=== PATIENT | male | born 1955 | race Caucasian/White ===

== ENCOUNTER 2022-12-09 06:04 | Emergency (ER) | payer MEDICARE, SELFPAY ==
[2022-12-09 06:08] VITALS: BP 142/102; PULSE 77; RESP 20; TEMP 36.4; O2SAT 96; BMI 22.7
--- NOTE | 2022-12-09 06:14 | ED_ITS ---
HPI - General Adult General Stated complaint: DIFFICULTY SWALLOWING Time Seen by Provider: 12/09/22 06:14 Source: patient Mode of arrival: walk-in History of Present Illness HPI narrative: Patient presents to emergency department complaining of throat swelling. Patient states he woke up this morning feeling like his throat is swollen and he cannot swallow. He denies any drooling. He states he had an episode like this 3 days ago and it went away on its own. Patient is not certain if he has any tongue swelling. he takes lisinopril for hypertension. Last dose was yesterday in the morning. He denies any fever, chills, or cough. Patient is a smoker.He denies any throat pain, or burning. Denies any nausea, vomiting, chest pain, shortness of breath. Related Data Home Medications Medication Instructions Recorded Confirmed aspirin 81 mg tablet,delayed 81 mg PO QDAY 12/09/22 12/09/22 release clopidogrel 75 mg tablet 75 mg PO QDAY 12/09/22 12/09/22 isosorbide mononitrate 30 mg 30 mg PO QDAY 12/09/22 12/09/22 tablet,extended release 24 hr lisinopril 5 mg tablet 5 mg PO QDAY 12/09/22 12/09/22 metoprolol succinate 25 mg 25 mg PO QDAY 12/09/22 12/09/22 tablet,extended release 24 hr rosuvastatin 40 mg tablet 40 mg PO QDAY 12/09/22 12/09/22 tamsulosin 0.4 mg capsule 0.4 mg PO Q24H 12/09/22 12/09/22 varenicline 1 mg tablet 1 mg PO QDAY 12/09/22 12/09/22 Allergies Allergy/AdvReac Type Severity Reaction Status Date / Time No Known Drug Allergies Allergy Verified 12/09/22 06:08 Review of Systems ROS Status of ROS 10 or more systems reviewed and unremarkable except as noted in history and below PFS PFS Social History Smoking status: Current every day smoker Exam Narrative Exam Narrative: Nurses notes and vital signs reviewed and patient is not hypoxic. General: Nontoxic, Well-appearing and in no apparent distress. Skin: Warm, dry, no pallor noted. No Rash Head: Normocephalic, atraumatic. Neck: Supple, non-tender. Eye: Pupils are equal, round and EOMI. No scleral icterus. Ears, Nose, Mouth, and Throat: TM clear, Minimal edema to the uvula, minimal edema to the tongue. No significant airway compromise. no posterior oropharynx erythema or nasal mucosal hypertrophy, uvula is mid-line, Oral mucosa is moist Cardiovascular: Regular Rate and Rhythm without murmur, gallop or rub. Respiratory: No accessory muscle use or respiratory distress. Lungs are clear to auscultation, no wheezing, rales or rhonchi Chest Wall: no tenderness Back: No midline thoracic or lumbar vertebral tenderness. No CVA tenderness Musculoskeletal: normal ROM, no calf or popliteal tenderness, no lower extremity edema/swelling GI: Abdomen is soft, non-distended. Normal bowel sounds. No masses appreciated. No tenderness to palpation. No rebound, guarding, or rigidity noted. Neurological: A&O x4. No cranial nerve dysfunction observed. No truncal ataxia. Moves all extremities. Sensation intact. Psychiatric: Cooperative and interactive. Normal mood and affect. Constitutional Vital Signs, click to edit/add: Last Vital Signs Temp 97.5 F L 12/09/22 06:08 Pulse 77 12/09/22 06:08 Resp 20 12/09/22 06:08 BP 142/102 H 12/09/22 06:08 Pulse Ox 96 12/09/22 06:08 O2 Del Method Room Air 12/09/22 06:08 Course Vital Signs Vital signs: Vital Signs Temperature 97.5 F L 12/09/22 06:08 Pulse Rate 77 12/09/22 06:08 Respiratory Rate 20 12/09/22 06:08 Blood Pressure 142/102 H 12/09/22 06:08 Pulse Oximetry 96 12/09/22 06:08 Oxygen Delivery Method Room Air 12/09/22 06:08 Temperature 97.5 F L 12/09/22 06:08 Pulse Rate 77 12/09/22 06:08 Respiratory Rate 20 12/09/22 06:08 Blood Pressure 142/102 H 12/09/22 06:08 Pulse Oximetry 96 12/09/22 06:08 Oxygen Delivery Method Room Air 12/09/22 06:08 Medical Decision Making [facility] Narrative Medical decision making narrative: Patient's history and physical is consistent with angioedema. An IV was established the patient was given 50 mg of Benadryl IV and Solu-Medrol 125 mg IV. CBC and a BMP were ordered and a neck soft tissue CT scan was ordered. Patient will be reevaluated To monitor improvement. The patient is signed out to Dr. Pham at the end of my shift awaiting labs, CT scan, reevaluation, and disposition. Discharge Plan Discharge Chief Complaint: Dental/Oral Clinical Impression: Angio-edema Patient Disposition: Still a Patient Prescriptions / Home Meds: No Action varenicline 1 mg tablet 1 mg PO QDAY aspirin 81 mg tablet,delayed release (DR/EC) 81 mg PO QDAY clopidogrel 75 mg tablet 75 mg PO QDAY isosorbide mononitrate 30 mg tablet extended release 24 hr 30 mg PO QDAY lisinopril 5 mg tablet 5 mg PO QDAY metoprolol succinate 25 mg tablet extended release 24 hr 25 mg PO QDAY rosuvastatin 40 mg tablet 40 mg PO QDAY tamsulosin 0.4 mg capsule 0.4 mg PO Q24H Referrals: NELLY WALTERS [Primary Care Provider] - 1 week
--- NOTE | 2022-12-09 06:28 | CT_ITS ---
The [address] [address] Patient Name: RONNELL PERES MRN: [id number] date: 1955 Sex: M Assigned Patient Location: ER Current Patient Location: Accession/Order Number: [id number] Exam Date: 12/09/2022 07:15 Report Date: 12/09/2022 07:35 At the request of: WARNER TRIPP Procedure: CT soft tissue neck w con EXAM: CT scan of the neck using 99 mL of IV iodinated contrast. Dose reduction technique used: Automated exposure control and/or adjustment of the mA and/or kV according to patient size and/or use of iterative reconstruction technique. REASON FOR EXAM: throat swelling COMPARISON: None FINDINGS: No abscess, fluid collection or soft tissue emphysema in the neck. No inflammatory changes in the neck. No abnormal soft tissue masses. Patent vascular structures in the neck. Mildly prominent left cervical lymph node at the level of the angle of the mandible measures 1.7 x 1.3 x 0.8 cm. No other cervical lymphadenopathy. Centrilobular and paraseptal emphysema in the upper lungs bilaterally. Remainder unremarkable. CT/CT soft tissue neck w con IMPRESSION: 1. No acute abnormalities in the neck. 2. Mild enlargement left cervical lymph node may be reactive, consider follow-up ultrasound in 2-3 months. Electronically authenticated by: KAILYN FERRELL Date: 12/09/2022 07:35
[2022-12-09] MEDS: METHYLPREDNISOLONE SOD SUCC PF 125 MG/2 ML VIAL IVP (06:45)
[2022-12-09] MEDS: DIPHENHYDRAMINE HCL 50 MG/ML (1ML) VIAL IV (06:45)
[2022-12-09 06:47] LABS: Basophils Absolute Auto 0.1 10^3/uL (0.0-0.1); Basophils Percent Auto 0.5 % (0.2-2.0); Eosinophils Absolute Auto 0.4 10^3/uL (0.0-0.7); Hematocrit 40.9 % (42.0-54.0); Hemoglobin 14.4 g/dL (14.0-18.0); Immature Granulocytes Abs Auto 0.03 10^3/uL (0.00-0.03); Immature Granulocytes Pct Auto 0.3 % (0.0-0.5); Lymphocytes Absolute Auto 1.9 10^3/uL (1.2-3.8); Mean Corpuscular HGB Conc 35.2 g/dL (29.9-35.2); Mean Corpuscular Hemoglobin 28.9 pg (25.9-34.0); Mean Corpuscular Volume 82.1 fL (80.0-94.0); Mean Platelet Volume 9.4 fL (9.5-13.5); Monocytes Absolute Auto 0.7 10^3/uL (0.3-0.8); Monocytes Percent Auto 7.1 % (1.7-12.0); Neutrophils Absolute Auto 6.8 10^3/uL (1.4-6.5); Neutrophils Percent Auto 69.1 % (43.0-75.0); Platelet Count 272 10^3/uL (150-450); Red Blood Count 4.98 10^6/uL (4.70-6.10); Red Cell Distribution Width 12.6 % (11.0-15.0); White Blood Count 9.9 10^3/uL (4.0-11.0)
[2022-12-09 06:52] LABS: Anion Gap 15.4; BUN Creatinine Ratio 20.2; Calcium 9.3 mg/dL (8.5-10.1); Carbon Dioxide 24.6 mmol/L (21.0-32.0); Chloride 101 mmol/L (98-107); Estimated GFR (African America >60 (>=60); Estimated GFR (Non-African Ame >60 (>=60); Glucose 108 mg/dL (74-106); Sodium 137 mmol/L (136-145)
[2022-12-09] MEDS: FAMOTIDINE/PF 20 MG/2 ML VIAL IV (07:42)
[2022-12-09 07:49] VITALS: BP 164/82; O2SAT 98
== END 2022-12-09 08:19 | disposition home or self-care (01) ==
PROVIDERS: Emergency Provider Emergency Medicine; PCP Nurse Practitioner Family
DX: R05.9 Cough, unspecified (principal); R09.81 Nasal congestion; F17.210 Nicotine dependence, cigarettes, uncomplicated; Z79.899 Other long term (current) drug therapy; Z79.82 Long term (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
CPT/HCPCS: 36415; 70491; 80048; 85025; 96374; 96375; 99285; J2930; Q9967

== ENCOUNTER 2023-01-20 08:31 | Outpatient (OUT) | payer MEDICARE, SELFPAY ==
--- NOTE | 2023-01-20 | PCN_ITS ---
CARDIAC STRESS TEST Requesting Physician:? Mackenzie Arroyo M.D. Procedure Date:? 01/20/2023 PERFORMING PROVIDER:? Mackenzie Arroyo M.D. INDICATIONS:? Chest pain, shortness of breath. STRESS TEST PROTOCOL:? Lexiscan myocardial perfusion scan. Resting heart rate:? 59 beats per minute. Max heart rate:? 116 beats per minute. Resting blood pressure:? 152/102 Maximum blood pressure: 182/104 CONCLUSIONS: 1.? Resting EKG demonstrates normal sinus rhythm, normal EKG. 2.? No definitive EKG changes meeting the criteria for ischemia. 3.? Please refer to separately interpreted and reported myocardial perfusion scan report. [facility]
--- NOTE | 2023-01-20 07:45 | NM_ITS ---
Patient: RONNELL PERES Exam Date: 01/20/2023 : 1955 Gender:M Ordering : CAM FORREST Admission #: [id number] Family : NELLY WALTERS [facility] Order #: [id number] CLICK HERE TO VIEW EXAM RADIOLOGY REPORT PROCEDURE: NM ARUN PERF SPECT REST STR COMPARISON: None. INDICATIONS: CHEST PAIN TECHNIQUE: Exam Description: Stress/Rest two day protocol gated SPECT Rest Imagin.8 mCi Tc-99m Cardiolite IV on 01/20/2023 Stress Imaging 30.9 mCi Tc-99m Cardiolite IV on 01/20/2023 Exercise Protocol: 0.4 mg Lexiscan given IV Heart Rate (bpm): Rest: 69 Max: 116 PMHR: 76 Blood Pressure: Rest: 152/102 Max: 182/104 Symptoms: Rest and peak stress ECG findings were pending and the exercise portion of the study was pending per attending physician Dr. LLAMAS . For more details please see separate cardiac stress test report. FINDINGS: QUALITY OF STUDY: Good. PERFUSION DEFECT: None. LOCATION: N/A SIZE: N/A. SEVERITY: N/A. TYPE: N/A. WALL MOTION: Normal. LV SIZE: Normal. 79 mL. TID / TCD: None; 0.8 LVEF: Normal. Calculated EF 61%. SUMMARY: Myocardial perfusion imaging study is NORMAL. CONCLUSION: 1. No reversible ischemia 2. Pending exercise test Dictated by: Jm Tucker MD on 01/21/2023 at 14:21 Approved by: Jm Tucker MD on 01/21/2023 at 14:22
--- NOTE | 2023-01-20 07:57 | CA_ITS ---
Patient: RONNELL PERES Exam Date: 01/20/2023 : 1955 Gender:M Ordering : CAM FORREST Admission #: [id number] Family : Order #: [id number] CLICK HERE TO VIEW EXAM ECHOCARDIOGRAM REPORT PROCEDURE: CA ECHO DOPPLER COMPLETE INDICATIONS: Shortness of breath, Chest pain COMPARISON: None. DESCRIPTION: COMPLETE ECHOCARDIOGRAM Real-time transthoracic echocardiography with 2D, M-mode, spectral and color flow Doppler performed. QUALITY: Technical quality was good. LEFT VENTRICLE: Normal chamber size. Mild concentric left ventricular hypertrophy. LV EF: Global left ventricular systolic function is normal. Calculated left ventricular ejection fraction is 55%. DIASTOLIC: Normal diastolic function. ATRIAL SEPTUM: Inadequately seen. LEFT ATRIUM: Normal chamber size. RIGHT ATRIUM: Normal chamber size. RIGHT VENTRICLE: Normal chamber size. Normal right ventricular systolic function. TRICUSPID VALVE: Normal mobility and thickness. No stenosis with trivial regurgitation. No evidence of pulmonary hypertension. RVSP 26mmHg MITRAL VALVE: Normal mobility and thickness. No evidence of mitral valve stenosis. There is no mitral annular calcification. Trivial mitral regurgitation. AORTIC VALVE: Normal trileaflet appearance. Thickened aortic valve. Normal leaflet mobility. No evidence of aortic valve stenosis. No aortic regurgitation. AORTIC ROOT: Normal diameter and appearance. PULMONIC VALVE: Normal thickness and mobility. Trivial regurgitation. PERICARDIUM: No evidence of pericardial effusion. IVC: Collapses with inspirations. Normal size. CONCLUSION: Global left ventricular systolic function is normal; visually estimated ejection fraction is 55 to 60%. Mildly increased left ventricular wall thickness. Normal diastolic function. Right ventricle is normal in size and systolic function. No significant valvular abnormalities. Adult Echocardiography Procedure Report Left Ventricle LVEDD (3.7 - 5.6 cm): 3.89 cm LVESD (2.2 - 4.0 cm): 2.64 cm LVIVS thickness (0.6 - 1.2 cm): 1.25 cm LVPW thickness (0.5 - 1.0 cm): 0.98 cm e': 0.08 m/s E - e': 7.09 LVOT Max Gradient: 2.82 mm[Hg] LVOT Area (cm2): 0.84 m/s Peak Velocity (LVOT): 0.84 m/s Mean Velocity (LVOT): 0.60 m/s LVOT Diameter 1.95 cm Left Ventricular Ejection Fraction: 54.79 % Left Atrium LA Volume Index (2D A2C): 29.29 ml/m2 Left Atrium Systolic Dimension: 2.73 cm Mitral Valve MV E to A Ratio: 0.79 Mitral Valve A-Wave Peak Velocity: 0.72 m/s Mitral Valve E-Wave Peak Velocity: 0.57 m/s Right Ventricle RV Internal Diastolic Dimension: 3.22 cm Aorta AO Root Diam: 3.19 cm Ascending Ao Diam: 3.08 cm Aortic Valve AoV Area (Peak Richie): 2.15 cm2, 2.15 cm2 AoV Area (VTI): 1.81 cm2, 1.81 cm2 Peak Velocity(Antegrade Flow): 1.17 m/s Peak Gradient(Antegrade Flow): 5.49 mm[Hg] Mean Velocity(Antegrade Flow): 0.83 m/s Mean Gradient(Antegrade Flow): 3.11 mm[Hg] Velocity Time Integral: 27.76 cm Tricuspid Valve Peak Velocity (Regurgitant Flow): 2.26 m/s, 2.42 m/s Pulmonic Valve Mean Gradient: 3.40 mm[Hg], 2.93 mm[Hg] Mean Velocity: 0.83 m/s, 0.77 m/s Peak Velocity: 1.37 m/s Peak Gradient: 7.87 mm[Hg], 7.07 mm[Hg] Right Atrium Right Atrium Systolic Pressure: 31.60 ml, 31.60 ml Dictated by: Jenniffer Francisco M.D. on 01/22/2023 at 09:36 Approved by: Jenniffer Francisco M.D. on 01/22/2023 at 09:38
[2023-01-20] MEDS: REGADENOSON 0.4 MG/5 ML SYRINGE IV (09:57)
== END 2023-01-20 08:32 | disposition home or self-care (01) ==
LOC: NM 08:32
PROVIDERS: PCP Nurse Practitioner Family; Visit Provider Internal Medicine Cardiovascular Disease
DX: R07.9 Chest pain, unspecified (principal); R06.02 Shortness of breath
CPT/HCPCS: 78452; 93017; 93306; A9500; J2785

== ENCOUNTER 2023-01-25 19:11 | Emergency (ER) | payer MEDICARE, SELFPAY ==
[2023-01-25 19:15] VITALS: BP 133/86; PULSE 92; RESP 18; TEMP 36.8; O2SAT 96; BMI 22.6
--- NOTE | 2023-01-25 19:27 | ED.GENADUL1 ---
HPI - General Adult General Chief complaint: Epistaxis Stated complaint: ANXIETY Time Seen by Provider: 01/25/23 19:17 Source: patient Mode of arrival: walk-in History of Present Illness HPI narrative: patient has past history of anxiety. States he use to take Ativan. states increased stress including his job. Feeling anxious and not able to sit still or shut him mind down. No dyspnea or chest pain. Pacing. Wants something to help him relax so he can sleep Related Data Home Medications Medication Instructions Recorded Confirmed aspirin 81 mg tablet,delayed 81 mg PO QDAY 12/09/22 12/09/22 release clopidogrel 75 mg tablet 75 mg PO QDAY 12/09/22 12/09/22 isosorbide mononitrate 30 mg 30 mg PO QDAY 12/09/22 12/09/22 tablet,extended release 24 hr lisinopril 5 mg tablet 5 mg PO QDAY 12/09/22 12/09/22 metoprolol succinate 25 mg 25 mg PO QDAY 12/09/22 12/09/22 tablet,extended release 24 hr rosuvastatin 40 mg tablet 40 mg PO QDAY 12/09/22 12/09/22 tamsulosin 0.4 mg capsule 0.4 mg PO Q24H 12/09/22 12/09/22 varenicline 1 mg tablet 1 mg PO QDAY 12/09/22 12/09/22 Allergies Allergy/AdvReac Type Severity Reaction Status Date / Time lisinopril Allergy Unknown angioedema Unverified 01/20/23 08:03 Review of Systems ROS Status of ROS 10 or more systems reviewed and unremarkable except as noted in history and below PFSH PFSH Social History Smoking status: Current every day smoker Exam Constitutional Vital Signs, click to edit/add: Last Vital Signs Temp 98.2 F 01/25/23 19:15 Pulse 92 H 01/25/23 19:15 Resp 18 01/25/23 19:15 BP 133/86 01/25/23 19:15 Pulse Ox 96 01/25/23 19:15 O2 Del Method Room Air 01/25/23 19:15 Common normals: no apparent distress, average body habitus, oriented x3, no limitations, healthy appearing, alert and well nourished Eye Common normals: PERRL, EOMs intact bilaterally and conjunctivae normal Respiratory Common normals: normal respiratory effort, no retractions, no use of accessory muscles and clear to auscultation bilaterally Cardio Common normals: regular rate, regular rhythm, S1 normal heart sound and S2 normal heart sound GI Common normals: Normal to inspection, nondistended, normoactive bowel sounds present, soft to palpation and non-tender Extremity Common normals: normal to inspection and full ROM Neuro Common normals: oriented x3, CN's II-XII intact bilaterally, moves all extremities, no focal motor deficits and no sensory deficits noted Psych Appearance: grossly normal Course Vital Signs Vital signs: Vital Signs Temperature 98.2 F 01/25/23 19:15 Pulse Rate 92 H 01/25/23 19:15 Respiratory Rate 18 01/25/23 19:15 Blood Pressure 133/86 01/25/23 19:15 Pulse Oximetry 96 01/25/23 19:15 Oxygen Delivery Method Room Air 01/25/23 19:15 Temperature 98.2 F 01/25/23 19:15 Pulse Rate 92 H 01/25/23 19:15 Respiratory Rate 18 01/25/23 19:15 Blood Pressure 133/86 01/25/23 19:15 Pulse Oximetry 96 01/25/23 19:15 Oxygen Delivery Method Room Air 01/25/23 19:15 Medical Decision Making MDM Narrative Medical decision making narrative: patient has chronic history of anxiety. Was treated in the past with Ativan. Requesting something to help him calm down. No sucidal. Patient drove him self here. Was seen earlier today for nose bleed. No longer bleeding but stressing about it also. Will discharge home with a couple of Ativan to use tonight and recommend he follow up with his doctor tomorrow Discharge Plan Discharge Chief Complaint: Epistaxis Clinical Impression: Anxiety Patient Disposition: Home, Self-Care Prescriptions / Home Meds: No Action varenicline 1 mg tablet 1 mg PO QDAY aspirin 81 mg tablet,delayed release (DR/EC) 81 mg PO QDAY clopidogrel 75 mg tablet 75 mg PO QDAY isosorbide mononitrate 30 mg tablet extended release 24 hr 30 mg PO QDAY lisinopril 5 mg tablet 5 mg PO QDAY metoprolol succinate 25 mg tablet extended release 24 hr 25 mg PO QDAY rosuvastatin 40 mg tablet 40 mg PO QDAY tamsulosin 0.4 mg capsule 0.4 mg PO Q24H Instructions: Anxiety (ED) Additional Instructions: follow up with your doctor tomorrow Stand Alone Forms: Portal Instructions Referrals: NELLY WALTERS [Primary Care Provider] - 1 week
[2023-01-25] MEDS: LORAZEPAM 1 MG TABLET 2 MG PO (20:04)
== END 2023-01-25 20:13 | disposition home or self-care (01) ==
PROVIDERS: Emergency Provider Internal Medicine; PCP Nurse Practitioner Family
DX: F41.9 Anxiety disorder, unspecified (principal); Z79.899 Other long term (current) drug therapy; Z79.82 Long term (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; F17.210 Nicotine dependence, cigarettes, uncomplicated
CPT/HCPCS: 99283

== ENCOUNTER 2023-06-29 11:49 | Outpatient (OUT) | payer MEDICARE, SELFPAY ==
[2023-06-29 12:11] LABS: Estimated GFR (African America >60 (>=60); Estimated GFR (Non-African Ame >60 (>=60)
--- NOTE | 2023-06-29 12:27 | XR_ITS ---
The [address] [address] Patient Name: RONNELL PERES MRN: [id number] date: 1955 Sex: M Assigned Patient Location: LAB Current Patient Location: LAB Accession/Order Number: [id number] Exam Date: 06/29/2023 12:31 Report Date: 06/29/2023 12:53 At the request of: PORTILLO LUDWIG Procedure: XR foreign body eye EXAMINATION: XR foreign body eye HISTORY: for mri COMPARISON: No relevant comparison available. FINDINGS: ORBITS: Negative for a metallic foreign body. OTHER: Negative. XR/XR foreign body eye IMPRESSION: 1. No metallic foreign body within the orbits. Electronically authenticated by: LONNIE BUENO Date: 06/29/2023 12:53
== END 2023-06-29 11:50 | disposition home or self-care (01) ==
LOC: LAB 11:50
PROVIDERS: PCP Nurse Practitioner Family; Visit Provider Otolaryngology
DX: H90.3 Sensorineural hearing loss, bilateral (principal); H93.12 Tinnitus, left ear; H92.02 Otalgia, left ear
CPT/HCPCS: 36415; 70030; 82565

== ENCOUNTER 2023-08-19 10:37 | Outpatient (OUT) | payer MEDICARE, SELFPAY ==
--- NOTE | 2023-08-19 11:50 | XR_ITS ---
The [address] [address] Patient Name: RONNELL PERES MRN: [id number] date: 1955 Sex: M Assigned Patient Location: [facility] Current Patient Location: [facility] Accession/Order Number: [id number] Exam Date: 08/19/2023 11:45 Report Date: 08/19/2023 15:41 At the request of: SAUL KELSEY Procedure: XR chest 2V EXAMINATION: XR chest 2V HISTORY: Preop exam COMPARISON: 09/28/2022, 11/23/2014 TECHNIQUE: PA and lateral FINDINGS: LUNGS: Scattered right upper lobe nodules between the right third and fourth posterior ribs the largest measuring 7 mm. The left lung is clear VASCULATURE: No increased pulmonary vasculature. PLEURA: No pneumothorax, effusion, or pleural thickening. CARDIAC: No cardiomegaly or cardiac silhouette abnormality. MEDIASTINUM: No visible mass or adenopathy. BONES: No fracture or visible bone lesion. OTHER: Negative. XR/XR chest 2V IMPRESSION: 2 focal right upper lobe nodules. One of these nodules was calcified on the 2015 CT exam the other nodule is not definitively seen on prior CT. CT scan is recommended for further evaluation Electronically authenticated by: DUSTIN GONZALEZ Date: 08/19/2023 15:41
[2023-08-19 12:03] LABS: Basophils Percent Auto 0.5 % (0.2-2.0); Eosinophils Absolute Auto 0.1 10^3/uL (0.0-0.7); Eosinophils Percent Auto 1.2 % (0.9-7.0); Hematocrit 41.9 % (42.0-54.0); Hemoglobin 14.7 g/dL (14.0-18.0); Immature Granulocytes Abs Auto 0.03 10^3/uL (0.00-0.03); Immature Granulocytes Pct Auto 0.4 % (0.0-0.5); Lymphocytes Absolute Auto 1.8 10^3/uL (1.2-3.8); Lymphocytes Percent Auto 23.7 % (20.5-60.0); Mean Corpuscular HGB Conc 35.1 g/dL (29.9-35.2); Mean Corpuscular Hemoglobin 29.2 pg (25.9-34.0); Mean Corpuscular Volume 83.3 fL (80.0-94.0); Mean Platelet Volume 9.7 fL (9.5-13.5); Monocytes Absolute Auto 0.5 10^3/uL (0.3-0.8); Neutrophils Absolute Auto 5.2 10^3/uL (1.4-6.5); Neutrophils Percent Auto 68.2 % (43.0-75.0); Platelet Count 276 10^3/uL (150-450); Red Blood Count 5.03 10^6/uL (4.70-6.10); Red Cell Distribution Width 12.4 % (11.0-15.0); White Blood Count 7.6 10^3/uL (4.0-11.0)
--- NOTE | 2023-08-19 12:05 | PM.PRESUREVA ---
History of Present Illness History of Present Illness Chief complaint: left ing hernia Narrative: Patient presents for preadmission testing. The patient reports a long history of a left inguinal hernia which has worsened over the past year or so. The patient states the hernia is reducible, but the pain has become more consistent. He denies nausea, vomiting, or bowel changes. He states he does tend to be constipated. The patient has a history of coronary artery disease, myoocardial infarction, hypertension, and chronic obstructive pulmonary disease. The patient had a single cardiac stent placed in approximately 2019. He is taking aspirin and Plavix. The patient continues to smoke a pack of cigarettes a day as well as drink alcohol daily. The patient has been cleared for surgery by cardiology. Review of Systems ROS Narrative REVIEW OF SYSTEMS: Negative except as stated in HPI, ten or more systems reviewed. Constitutional: No fever , chills, weakness ENT: No sore throat or epistaxis Cardiovascular: No edema, chest pain, or palpitations Respiratory: Chronic cough, dyspnea on exertion Musculoskeletal: No joint pain or swelling Genitourinary: No dysuria or hematuria Neurological: No numbness, tingling, weakness, or headache Psychiatric: No mood changes [facility] Medical History (Updated 08/19/23 @ 11:31 by Imelda Bean NP) Neck pain ?M54.2 - Cervicalgia (ICD-10) Hydronephrosis ?N13.30 - Unspecified hydronephrosis (ICD-10) Tinnitus ?H93.19 - Tinnitus, unspecified ear (ICD-10) Hearing loss ?H91.90 - Unspecified hearing loss, unspecified ear (ICD-10) Fall (07/2023) ?W19.XXXA - Unspecified fall, initial encounter (ICD-10) Kidney stones ?N20.0 - Calculus of kidney (ICD-10) Constipation ?K59.00 - Constipation, unspecified (ICD-10) Inguinal hernia ?K40.90 - Unilateral inguinal hernia, without obstruction or gangrene, not specified as recurrent (ICD-10) GERD (gastroesophageal reflux disease) ?K21.9 - Gastro-esophageal reflux disease without esophagitis (ICD-10) Coronary artery disease ?I25.10 - Atherosclerotic heart disease of [place] coronary artery without angina pectoris (ICD-10) Panic attacks ?F41.0 - Panic disorder [episodic paroxysmal anxiety] (ICD-10) S/P extracorporeal shock wave therapy ?Z98.890 - Other specified postprocedural states (ICD-10) Myocardial infarct ?I21.9 - Acute myocardial infarction, unspecified (ICD-10) BPH with urinary obstruction ?N40.1 - Benign prostatic hyperplasia with lower urinary tract symptoms (ICD-10) ?N13.8 - Other obstructive and reflux uropathy (ICD-10) Anticoagulated ?Z79.01 - manager long term care (current) use of anticoagulants (ICD-10) Alcohol abuse ?F10.10 - Alcohol abuse, uncomplicated (ICD-10) Back pain ?M54.9 - Dorsalgia, unspecified (ICD-10) Dizziness ?R42 - Dizziness and giddiness (ICD-10) Surgical History (Updated 08/19/23 @ 11:27 by Imelda Bean NP) S/P ureteral stent placement ?Z96.0 - Presence of urogenital implants (ICD-10) History of heart artery stent ?Z95.5 - Presence of coronary angioplasty implant and graft (ICD-10) H/O of nasal cauterization ?Z98.890 - Other specified postprocedural states (ICD-10) S/P cystoscopy ?Z98.890 - Other specified postprocedural states (ICD-10) Family History (Updated 08/19/23 @ 11:27 by Imelda Bean NP) Other Brain aneurysm Cirrhosis Social History (Updated 08/19/23 @ 11:18 by Imelda Bean NP) Within the past year, how often did you have a drink containing alcohol: 4 or more times a week Within the past year, how many standard drinks containing alcohol did you have on a typical day: 5 or 6 Smoking status: Current every day smoker What tobacco products do you use: cigarettes Packs per day: 1 Years smoked: 50 Smoking pack-years: 50.00 Non-prescribed substance use: denies use Highest level of school completed/degree received: high school graduate Meds Home Medications and Allergies Home Medications ?Medication ?Instructions ?Recorded ?Confirmed ?Type aspirin 81 mg tablet,delayed 81 mg PO QDAY 12/09/22 08/19/23 History release clopidogrel 75 mg tablet 75 mg PO QDAY 12/09/22 08/19/23 History isosorbide mononitrate 30 mg 30 mg PO QDAY 12/09/22 08/19/23 History tablet,extended release 24 hr metoprolol succinate 25 mg 25 mg PO QDAY 12/09/22 08/19/23 History tablet,extended release 24 hr rosuvastatin 40 mg tablet 40 mg PO QDAY 12/09/22 08/19/23 History tamsulosin 0.4 mg capsule 0.4 mg PO Q24H 12/09/22 08/19/23 History varenicline 1 mg tablet 1 mg PO QDAY 12/09/22 08/19/23 History amlodipine 5 mg tablet 5 mg PO DAILY 08/19/23 08/19/23 History doxepin 10 mg capsule 10 mg PO TID PRN anxiety 08/19/23 08/19/23 History nitroglycerin 0.4 mg sublingual 0.4 mg sublingual Q5M PRN chest 08/19/23 08/19/23 History tablet pain psyllium 1 packet PO DAILY 08/19/23 08/19/23 History Allergies Allergy/AdvReac Type Severity Reaction Status Date / Time lisinopril Allergy Unknown angioedema Unverified 08/19/23 11:11 Exam Narrative Exam Narrative: Constitutional: Awake, alert, comfortable, well-appearing, nontoxic, interactive, vital signs as charted Head: Normocephalic, atraumatic Neck: Supple, normal appearance, normal range of motion, no meningeal signs, no lymphadenopathy Respiratory: No respiratory distress, breath sounds clear Cardiovascular: Regular rate and rhythm, strong and regular heart tones Abdomen: Nontender, normal bowel sounds, soft, no CVA tenderness Musculoskeletal: Normal gait, no swelling or edema Skin: No rashes or induration, no lesions, only visible skin inspected Neuro: No neurological deficits, normal sensation Psychiatric: Oriented ?3, normal affect Assessment and Plan Assessment and Plan (1) Inguinal hernia: Plan Left inguinal hernia repair with mesh scheduled with Dr. Barajas 09/02/2023.
[2023-08-19 12:26] LABS: Anion Gap 13.5; BUN Creatinine Ratio 12.4; Calcium 9.4 mg/dL (8.5-10.1); Carbon Dioxide 26.7 mmol/L (21.0-32.0); Chloride 104 mmol/L (98-107); Estimated GFR (African America >60 (>=60); Estimated GFR (Non-African Ame >60 (>=60); Glucose 112 mg/dL (74-106); Potassium 4.2 mmol/L (3.5-5.1); Sodium 140 mmol/L (136-145)
[2023-08-19 12:29] LABS: INR 0.93; Prothrombin Time 9.9 sec (9.0-11.6)
== END 2023-08-19 10:38 | disposition home or self-care (01) ==
LOC: PST 10:38
PROVIDERS: PCP Nurse Practitioner Family; Visit Provider Surgery
DX: Z01.810 Encounter for preprocedural cardiovascular examination (principal); Z01.812 Encounter for preprocedural laboratory examination; Z01.818 Encounter for other preprocedural examination; K40.90 Unilateral inguinal hernia, without obstruction or gangrene, not specified as recurrent; R91.8 Other nonspecific abnormal finding of lung field
CPT/HCPCS: 71046; 80048; 85025; 85610; 85730; G0463

== ENCOUNTER 2023-09-02 08:03 | Day surgery (SDC) | payer MEDICARE, SELFPAY ==
[2023-08-19 11:52] VITALS: BP 122/76; PULSE 87; TEMP 36.3; O2SAT 96; BMI 23.4
[2023-09-02] VITALS (16 sets, daily range): BP systolic 106–127; BP diastolic 68–83; PULSE 77–94; TEMP 36.1–36.2; O2SAT 92–99; BMI 23.3
--- NOTE | 2023-09-02 | OP_ITS ---
OPERATION DATE: 09/02/2023 PREOPERATIVE DIAGNOSIS: Left inguinal hernia. POSTOPERATIVE DIAGNOSIS: Indirect left inguinal hernia. PROCEDURE: Left inguinal herniorrhaphy with Bard polypropylene mesh insertion. SURGEON: Aaron Barajas M.D. ANESTHESIA: General endotracheal as well as left sided TAP block per Dr. Sorto. ESTIMATED BLOOD LOSS: Less than 10 mL. INDICATIONS AND CONSENT: Patient is a 68-year-old male with long history of a symptomatic reducible left inguinal hernia. Indications, risks, benefits, alternatives of proceeding with herniorrhaphy were explained extensively to the patient, including the risks of bleeding, infection, nerve injury, testicular injury, blood clot, pulmonary embolus, heart attack, anesthetic complications, need for further surgery or mesh removal. All of his questions were answered. Informed consent was obtained. PROCEDURE: Patient brought to the operating room, placed in the supine position. General anesthesia was induced. Patient had undergone a preoperative left sided TAP block. Patient was prepped and draped in the usual sterile fashion. A left groin incision was made in the area of the skin crease and carried down through subcutaneous tissue using sharp dissection as well as electrocautery. Nazia?s fascia was divided. The external oblique which was attenuated was opened along the direction of its fibers, down through the external inguinal ring. The cord structures were mobilized and retracted with the Scarlet drain. There was an indirect sac noted. This was freed up from the cord structures. It was opened and there was omentum within it that was reduced. High ligation of the sac was performed with a 3-0 Vicryl suture. The wound was irrigated with antibiotic saline. There was good hemostasis. There was some weakness to the floor, but no direct inguinal hernia. The Bard polypropylene mesh was then trimmed and a keyhole was created. It was then placed in the floor of the inguinal canal. The arms were placed around the cord structures. It was then secured circumferentially using interrupted 3-0 Vicryl sutures. Care was taken to avoid undo tension on the cord structures. Once this was complete, the wound was irrigated with antibiotic saline. There was good hemostasis. The external oblique was closed with a running 3-0 Vicryl suture. The remaining Exparel solution was injected into the subcutaneous tissue. Nazia?s fascia was re-approximated with interrupted 3-0 Monocryl suture. The skin was then closed with a running 4-0 subcuticular Monocryl suture and skin glue. Sterile pressure dressing was applied. Sponge and needle counts were correct x2 per nursing personnel. Patient tolerated the procedure well, was extubated, sent to recovery room in good condition. CC: SHIELA Dotson
--- OUTSIDE RECORDS SUMMARY | 2023-09-02 08:21 | XMS_ITS | CCD ---
Author Organization [facility] Care Team Providers Care Truant Officer Name Role Phone CRISTIN YASMINE Ortiz Unavailable Unavailable SELF, REFERRED Unavailable Unavailable RENNO, ANAS Unavailable Unavailable AHMED, ANDREW Unavailable Unavailable OR Unavailable Unavailable UNKNOWN, PROVIDER Unavailable Unavailable PHYSICIAN, DEFAULT Unavailable Unavailable PHYSICIAN, DEFAULT Unavailable Unavailable SELF, REFERRED Unavailable Unavailable Dylan Zaidi MD Primary Care Provider Dylan Zaidi Primary Care Physician CAM FORREST Attending Unavailable CAM FORREST Admitting Unavailable CAM FORREST Consulting Unavailable ROMEO, NELLY Primary Care Unavailable ROMEO, NELLY Consulting Unavailable ROMEO, NELLY Primary Care Unavailable NELLY WALTERS Attending Unavailable ROMEO, NELLY Admitting Unavailable HARISH ROBERTO Attending Unavailable HARISH ROBERTO Admitting Unavailable DR DUSTIN TUCKER V Consulting Unavailable ROMEO, NELLY Primary Care Unavailable HARISH ROBERTO Consulting Unavailable DR DYLAN ZAIDI Primary Care Unavailable SIMA BENSON Consulting Unavailable SIMA BENSON Attending Unavailable KELLEY, SIMA Admitting Unavailable WARNER TRIPP Consulting Unavailable CHRISTIANA HERNÁNDEZ Consulting Unavailable WARNER TRIPP Attending Unavailable WARNER TRIPP Admitting Unavailable KELLEY, SIMA Consulting Unavailable ROMEO, NELLY Primary Care Unavailable Lenin Jay Consulting Unavailable WARNER TRIPP Consulting Unavailable DR SUSAN BOYLE Attending Unavailable DR SUSAN BOYLE Admitting Unavailable DR SUSAN BOYLE Consulting Unavailable ROMEO, NELLY Primary Care Unavailable YASMINE CROWELL Admitting Unavailable YASMINE CROWELL Attending Unavailable DR DYLAN ZAIDI Primary Care Unavailable ROMEO, NELLY Primary Care Unavailable NELLY WALTERS Attending Unavailable ROMEO, NELLY Admitting Unavailable ROMEO, NELLY Consulting Unavailable CAM FORREST Attending Unavailable CAM FORREST Admitting Unavailable DR DUSTIN TUCKER V Consulting Unavailable DR DYLAN ZAIDI Primary Care Unavailable ADRIANE, CAM Consulting Unavailable Dylan Zaidi MD Primary Care Provider [phone] Dylan Zaidi MD Primary Care Provider [phone] GUILLE ABRAHAM Attending Unavailable TIMMIS, PORTILLO H Referring Unavailable TIMMIS, PORTILLO H Attending Unavailable TIMOTHYS, PORTILLO H Attending Unavailable Dylan Zaidi MD Primary Care Provider [phone] Timmis, Portillo H Admitting Unavailable Timmis, Portillo H Referring Unavailable Timmis, Portillo H Attending Unavailable NILL, Aaron R Attending Unavailable NILL, Aaron White Attending Unavailable Timmis, Portillo H Attending Unavailable Timmis, Portillo H Admitting Unavailable Timmis, Portillo H Referring Unavailable DYLAN ZAIDI Primary Care Unavailable NORBERT NEFF Referring Unavailable NORBERT NEFF Referring Unavailable DYLAN ZAIDI Primary Care Unavailable DYLAN ZAIDI Primary Care Unavailable DYLAN ZAIDI Primary Care Unavailable NORBERT NEFF Referring Unavailable ADRIANE, MOHAMAD Attending Unavailable ALGHOJAIME, ANDRAAMAD Attending Unavailable ALGLAUREN, MOHAMAD Attending Unavailable YASMINE CROWELL Attending Unavailable Allergies Allergy Classification Reported Allergen(s) Allergy Type Date of Onset Reaction(s) Facility (3 sources) Lisinopril; Translations: [lisinopril] Drug Allergy 3 Angioedema, Dysphagia (disorder) [facility] (2 sources) Lisinopril Propensity to adverse reactions 3 Angioedema [facility] Work Phone: (1 source) No Known Medication Allergies; Translations: [No Known Medication Allergies] Propensity to adverse reactions (disorder) [facility] Repository Medications Current Medications Medication Drug Class(es) Dates Sig (Normalized) Sig (Original) acetaminophen 325 mg / oxyCODONE hydrochloride 5 mg oral tablet (2 sources) Opioid Agonist Start: 07-11-2021 End: 07-14-2021 oxyCODONE-acetamino phen (PERCOCET) 5-325 MG per tablet Indications: Urinary tract infection with hematuria, site unspecified , Ureteral calculus Take 1 tablet by mouth every 6 hours as needed for Pain for up to 3 days. Intended supply: 3 days. Take lowest dose possible to manage pain 12 tablet 0 07/11/2021 07/14/2021 Active Start: 07-11-2021 End: 07-11-2021 oxyCODONE-acetaminophen (PER COCET) 5-325 MG per tablet 1 tablet amLODIPine 5 mg oral tablet (3 sources) Dihydropyridine Calcium Channel Joan Start: 12-19-2022 End: 12-19-2023 take 1 tablet by mouth once daily Norvasc 5 mg Tab 5 mg = 1 tab(s), Oral, Daily, Refills(s) 0 Start Date: 07/17/23 Status: Ordered aspirin 81 mg delayed release oral tablet (19 sources) Platelet Aggregation Inhibitor, Nonsteroidal Anti-inflammatory Drug Start: 07-09-2021 take 81 mg by mouth once daily 81 mg, Oral, DAILY, First dose on Thu07/09/21 at 2000 Do not crush or break. Start: 06-26-2021 End: 07-09-2021 take 81 mg by mouth once daily ASPIRIN 81 PO Take 81 m g by mouth daily 0 06/26/2021 07/09/2021 Discontinued (LIST CLEANUP) Start: 06-26-2021 take 1 capsule by mo uth once daily aspirin 81 mg oral capsule 81 mg = 1 cap(s), Oral, Daily, Blood Thinner Start Date: 06/26/21 Status: Ordered belladonna alkaloids 16.2 mg / opium 30 mg rectal suppository (2 sources) Start: 07-09-2021 End: 07-09-2021 take 30 mg rectal route every eight hours as needed for muscle spasms 30 mg, Rectal, EVERY 8 HOURS PRN, Bladder Spasms, Starting on Thu07/09/21 at 1939 PRN for bladder spasms. Post-op bisacodyl 5 mg delayed release oral tablet (1 source) Stimulant Laxative Start: 07-09-2021 take 5 mg by mouth once daily as needed for constipation 5 mg, Oral, DAILY PRN, Constipation, Starting on Thu07/09/21 at 1939 First line therapy for constipation. Post-op 12 hr buPROPion hydrochloride 150 mg extended release oral tablet (3 sources) Aminoketone Start: 06-13-2022 take 1 tablet by mouth every twelve hours in the morning buPROPion SR (Wellbutrin SR) 150 MG 12 hr tablet Take 150 mg by mouth in the morning and 150 mg before bedtime. 0 06/13/2022 Active Start: 06-13-2022 take 1 tablet by cristal th twice daily at bedtime buPROPion (WELLBUTRIN SR) 150 MG extended release tablet TAKE 1 TABLET BY MOUTH TWICE DAILY (IN THE MORNING & AT BEDTIME) do not crush, chew or split TABLET 0 06/13/2022 Active clonazePAM 0.5 mg oral tablet (5 sources) Benzodiazepine Start: 07-09-2021 take 0.25 mg by mouth three times daily 0.25 mg, Oral, 3 TIMES DAILY, First dose on Thu07/09/21 at 2100 Start: 06-26-2021 take 0.25 mg by mout h three times daily clonazePAM (KLONOPIN) 0.5 MG tablet Take 0.25 mg by mouth 3 times daily. 0 06/26/2021 Active clopidogrel 75 mg oral tablet (18 sources) [id number] Platelet Inhibitor Start: 07-09-2021 take 1 tablet by mouth once daily Plavix 75 mg Tab 75 mg = 1 tab(s), Oral, Daily, Refills(s) 0, Blood Thinner Start Date: 11/04/21 Status: Ordered docusate sodium 100 mg oral capsule (5 sources) Start: 07-16-2021 take 1 capsule by mouth three times daily as needed for constipation docusate sodium (COLACE) 100 MG capsule Take 1 capsule by mouth 3 times daily as needed for Constipation 60 capsule 1 07/16/2021 Active doxepin hydrochloride 10 mg oral capsule (4 sources) Tricyclic Antidepressant Start: 01-26-2023 take 1 capsule by mouth three times daily as needed for anxiety doxepin 10 mg Cap 10 mg = 1 cap(s), Oral, TID, PRN Anxiety, Refills(s) 0 Start Date: 02/19/23 Status: Ordered hydrOXYzine hydrochloride 25 mg oral tablet (3 sources) Antihistamine Start: 01-26-2023 take 1 tablet by mouth every six hours as needed hydrOXYzine HCl (Atarax) 25 MG tablet Take 25 mg by mouth every 6 (six) hours if needed. 0 01/26/2023 Active Start: 01-25-2023 End: 01-25-2023 hydrOXYzine HCl (ATARAX) tab let 25 mg 24 hr isosorbide mononitrate 30 mg extended release oral tablet (6 sources) Nitrate Vasodilator Start: 06-13-2022 take 1 tablet by mouth once daily in the morning isosorbide mononitrate 30 mg ER Tab 30 mg = 1 tab(s), Oral, qAM, Refills(s) 0, High blood pressure Start Date: 10/22/22 Status: Ordered lisinopril 5 mg oral tablet (15 sources) Angiotensin Converting Enzyme Inhibitor Start: 06-26-2021 End: 01-25-2023 take 1 tablet by mouth once daily lisinopril 5 mg Tab 5 mg = 1 tab(s), Oral, Daily, High blood pressure Start Date: 06/26/21 Status: Ordered 24 hr metoprolol succinate 25 mg extended release oral tablet (18 sources) beta-Adrenergic Joan Start: 02-10-2023 take 1 tablet by mouth every twenty-four hours in the morning metoprolol succinate XL (Toprol-XL) 25 MG 24 hr tablet Take 12.5 mg by mouth in the morning. 0 02/10/2023 Active Start: 06-26-2021 take 25 mg by mouth once daily 25 mg, Oral, DAILY, First dose on Thu07/09/21 at 2000 Do not crush or chew. Start: 06-26-2021 metoprolol 25 mg ER Tab 12.5 mg = 0.5 tab(s), Oral, Daily, High blood pressure Start Date: 06/26/21 Status: Ordered nitroglycerin 0.4 mg sublingual tablet (12 sources) Nitrate Vasodilator Start: 07-09-2021 0.4 mg, Milner bLINGual, EVERY 5 MIN PRN, Chest pain, Starting on Thu07/09/[address] 1 tablet under tongue upon chest pain, wait 5 minutes and may repeat up to 3 doses in 15 minutes. Do not crush or break. Start: 06-26-2021 End: 07-09-2021 nitroGLYCERIN (NITROSTAT) 0. 4 MG SL tablet Take 0.4 mg by mouth as needed 0 06/26/2021 07/09/2021 Discontinued (LIST CLEANUP) oxyCODONE (1 source) Opioid Agonist Start: 07-09-2021 oxyCODONE (ROXICODONE) immediate release tablet 5 mg phenazopyridine hydrochloride 100 mg oral tablet (1 source) Start: 07-10-2021 phenazopyridine (PYRIDIUM) tablet 200 mg polyethylene glycol 3350 [id number] mg powder for oral solution (4 sources) Osmotic Laxative Start: 07-16-2021 take 17 g by mouth once daily polyethylene glycol (GLYCOLAX) 17 g packet Take 17 g by mouth daily 1580 g 3 07/16/2021 Active 1000 ml potassium chloride 0.02 meq/ml / sodium chloride 4.5 mg/ml injection (1 source) Start: 07-09-2021 take 100 mL intravenously every hour 100 mL/hr, IntraVENous, CONTINUOUS, Starting on Thu07/09/21 at 2000, Post-op Psyllium (2 sources) Start: 02-17-2023 Metamucil Oral, Daily, Refills(s) 0, Constipation Start Date: 02/17/23 Status: Ordered rosuvastatin calcium 40 mg oral tablet (18 sources) HMG-CoA Reductase Inhibitor Start: 02-10-2023 take 1 tablet by mouth at bedtime rosuvastatin (Crestor) 40 MG tablet Take 40 mg by mouth at bedtime. 0 02/10/2023 Active Start: 07-09-2021 take 40 mg by mouth once daily in the evening 40 mg, Oral, EVERY EVENING, First dose on Thu07/09/21 at 2000 Start: 06-26-2021 take 40 mg by mouth once daily rosuvastatin 40 mg, Oral, Daily, High cholesterol Start Date: 06/26/21 Status: Ordered 5 ml sodium chloride 9 mg/ml injection (3 sources) Start: 07-09-2021 take 1 dose intravenously twice daily 5-40 mL, IntraVENous, EVERY 12 HOURS SCHEDULED (2 times per day), First dose on Thu07/09/21 at 2100 For Line Patency: Peripheral IV = 5 mL; Midline or Central Line = 10 mL/lumen. If following IV push medication, administer flush at same rate as the IV push. Flush volume is determined by type of infusion therapy being given. For non-viscous solutions use: Peripheral IV = 5 mL Midline or Central Line = 10 mL/lumen For viscous solutions (i.e. blood components, parenteral nutrition, contrast media, or after obtaining blood sample) use: Peripheral IV = 10 mL Midline or Central Line = 20 mL/lumen Post-op Start: 07-09-2021 take 25 mL intraveno usly every hour as needed 25 mL, IntraVENous, at 100 mL/hr, PRN, If patient receiving piggyback infusions without ordered maintenance IV fluids or with frequent/long duration piggyback infusions, Starting on Thu07/09/21 at 1939 Administer at the same rate as the piggyback being infused. Post-op Start: 07-09-2021 take 5-40 mL intravenously onc e 5-40 mL, IntraVENous, PRN, Line Care, Starting on Thu07/09/21 at 1939 After every IV line use Post-op sulfamethoxazole 800 mg / trimethoprim 160 mg oral tablet (1 source) Dihydrofolate Reductase Inhibitor Antibacterial, Sulfonamide Antimicrobial Start: 07-11-2021 End: 07-21-2021 take 1 tablet by mouth twice daily sulfamethoxazole-trimethoprim (BACTRIM DS) 800-160 MG per tablet Take 1 tablet by mouth 2 times daily for 10 days 20 tablet 0 07/11/2021 07/21/2021 Active tamsulosin hydrochloride 0.4 mg oral capsule (17 sources) alpha-Adrenergic Joan Start: 11-25-2022 take 1 capsule by mouth every twenty-fo ur hours in the morning tamsulosin (Flomax) 0.4 MG 24 hr capsule Take 0.4 mg by mouth in the morning. 0 11/25/2022 Active Start: 06-26-2021 take 1 capsule by [facility] once daily Flomax 0.4 mg Cap 0.4 mg = 1 cap(s), Oral, Daily, # 30 cap(s), Refills(s) 3, Pharmacy: [facility], 168, cm, 06/26/21 9:30:00 EST, Height/Length Dosing, 65, kg, 06/26/21 9:30:00 EST, Weight Dosing Start Date: 06/26/21 Status: Ordered varenicline 1 mg oral tablet (5 sources) Partial Cholinergic Nicotinic Agonist Start: 10-22-2022 take 1 tablet by mouth twice daily varenicline 1 mg oral tablet 1 mg = 1 tab(s), Oral, BID, Refills(s) 0, Smoking cessation Start Date: 10/22/22 Status: Ordered Completed/Discontinued Medications Medication Drug Class(es) Dates Sig (Normalized) Sig (Original) acetaminophen 325 mg oral tablet (1 source) Start: 07-09-2021 End: 07-09-2021 acetaminophen (TYLENOL) tablet 650 mg acetaminophen 325 mg / HYDROcodone bitartrate 5 mg oral tablet (5 sources) Opioid Agonist Start: 07-09-2021 End: 07-09-2021 HYDROcodone-acetamin ophen (NORCO) 5-325 MG per tablet 1 tablet Start: 07-09-2021 End: 07-09-2021 HYDROcodone-acetaminophen (N ORCO) 5-325 MG per tablet 1 tablet Start: 06-25-2021 End: 07-11-2021 take 2 tablets by mouth every six hours as needed HYDROcodone-acetaminophen (NORCO) 5-325 MG per tablet Take 2 tablets by mouth every 6 hours as needed. 0 06/25/2021 07/11/2021 Discontinued calcium chloride 0.0014 meq/ml / potassium chloride 0.004 meq/ml / sodium chloride 0.103 meq/ml / sodium lactate 0.028 meq/ml injectable solution (1 source) Start: 07-09-2021 End: 07-09-2021 lactated ringers infusion cefTRIAXone (ROCEPHIN) 1000 mg IVPB in 50 mL D5W minibag (1 source) Start: 07-11-2021 End: 07-11-2021 cefTRIAXone (ROCEPHIN) 1000 mg IVPB in 50 mL D5W minibag 200 ml ciprofloxacin 2 mg/ml injection (3 sources) Quinolone Antimicrobial Start: 07-09-2021 End: 07-09-2021 ciprofloxacin (CIPRO) IVPB 400 mg Start: 07-09-2021 End: 07-09-2021 ciprofloxacin (CIPRO) 400 MG /200ML IVPB Start: 06-28-2021 End: 07-09-2021 take 1 tablet by mouth twice daily ciprofloxacin (CIPRO) 500 MG tablet TAKE 1 TABLET BY MOUTH TWICE DAILY 0 06/28/2021 07/09/2021 Discontinued (LIST CLEANUP) dimenhyDRINATE 50 mg oral tablet (1 source) Start: 07-09-2021 End: 07-09-2021 dimenhyDRINATE (DRAMAMINE) tablet 50 mg 2 ml fentaNYL 0.05 mg/ml injection (2 sources) Opioid Agonist Start: 07-09-2021 End: 07-09-2021 fentaNYL (SUBLIMAZE) injection 50 mcg Start: 07-09-2021 End: 07-09-2021 fentaNYL (SUBLIMAZE) injecti on 25 mcg 1 ml ketorolac tromethamine 15 mg/ml cartridge (2 sources) Nonsteroidal Anti-inflammatory Drug, Cyclooxygenase Inhibitor Start: 07-11-2021 End: 07-11-2021 ketorolac (TORADOL) injection 15 mg Start: 07-09-2021 End: 07-09-2021 ketorolac (TORADOL) injectio n 30 mg 1 ml morphine sulfate 4 mg/ml cartridge (2 sources) Opioid Agonist Start: 07-11-2021 End: 07-11-2021 morphine injection 4 mg Start: 07-09-2021 take 2 mg by mouth e very three hours as needed for pain 2 mg, IntraVENous, EVERY 3 HOURS PRN, Pain Moderate (4-6), Starting on Thu07/09/21 at 1939 If oral and IV narcotics ordered, use oral first and only use IV if oral is ineffective or cannot take oral. Do Not give oral and IV within 1 hour of each other unless specifically ordered. Post-op 2 ml ondansetron 2 mg/ml injection (2 sources) Serotonin-3 Receptor Antagonist Start: 07-09-2021 End: 07-11-2021 ondansetron (ZOFRAN) injection 4 mg Problems Active Problems Problem Classification Problem Date Documented Date Episodic/Chronic Abdominal hernia (7 sources) Left inguinal hernia ; Translations: [Inguinal hernia] Onset: 12-12-2022 11-21-2021 Episodic Acute myocardial infarction (5 sources) ST elevation (STEMI) myocardial infarction involving other sites; Translations: [Myocardial infarction] Onset: 11-10-2017 02-10-2023 Chronic Alcohol-related disorders (8 sources) Alcohol abuse, uncomplicated; Translations: [Alcohol abuse] Onset: 11-10-2017 11-04-2021 Chronic Anxiety disorders (7 sources) Anxiety; Translations: [Anxiety disorder, unspecified] Onset: 12-12-2022 06-26-2021 Chronic Calculus of urinary tract (20 sources) Personal history of urinary calculi; Translations: [Ureteric stone] Onset: 11-10-2017 Resolved: 02-10-2023 07-09-2021 Episodic Chronic obstructive pulmonary disease and bronchiectasis (10 sources) Chronic obstructive lung disease; Translations: [Emphysema, unspecified] Onset: 12-21-2020 11-04-2021 Chronic Coronary atherosclerosis and other heart disease (13 sources) Atherosclerotic heart disease of [place] coronary artery without angina pectoris; Translations: [History of myocardial infarction] Onset: 11-10-2017 Resolved: 02-10-2023 11-04-2021 Chronic Disorders of lipid metabolism (11 sources) Pure hyperglyceridemia; Translations: [Hyperlipidemia] Onset: 11-10-2017 06-26-2021 Chronic Esophageal disorders (9 sources) Gastroesophageal reflux disease; Translations: [Gastro-esophageal reflux disease without esophagitis] Onset: 09-28-2018 11-04-2021 Chronic Essential hypertension (12 sources) Essential (primary) hypertension; Translations: [Hypertensive disorder] Onset: 11-10-2017 06-26-2021 Chronic Fluid and electrolyte disorders (1 source) Hypokalemia; Translations: [HYPOKALEMIA] Onset: 11-10-2017 Episodic Genitourinary symptoms and ill-defined conditions (3 sources) Incomplete emptying of bladder; Translations: [Retention of urine, unspecified] Episodic Hyperplasia of prostate (13 sources) Benign prostatic hypertrophy with outflow obstruction; Translations: [Benign prostatic hyperplasia with lower urinary tract symptoms] Onset: 07-29-2021 07-29-2021 Chronic Nausea and vomiting (1 source) Nausea; Translations: [Nausea] Episodic Other congenital anomalies (2 sources) Porokeratosis; Translations: [Other specified congenital malformations of skin] Onset: 12-12-2022 02-10-2023 Chronic Other diseases of kidney and ureters (7 sources) Hydronephrosis; Translations: [Unspecified hydronephrosis] Onset: 12-12-2022 06-26-2021 Episodic Other ear and sense organ disorders (2 sources) Asymmetrical sensorineural hearing loss; Translations: [Sensorineural hearing loss, bilateral] 06-17-2023 Chronic Other ear and sense organ disorders (2 sources) Tinnitus of left ear; Translations: [Tinnitus, left ear] 06-17-2023 Episodic Other lower respiratory disease (4 sources) Other forms of dyspnea; Translations: [OTHER FORMS OF DYSPNEA] Onset: 12-18-2021 Episodic Other nutritional; endocrine; and metabolic disorders (1 source) Hypomagnesemia; Translations: [HYPOMAGNESEMIA] Onset: 11-10-2017 Chronic Other nutritional; endocrine; and metabolic disorders (1 source) Decrease in appetite; Translations: [Anorexia] Episodic Other screening for suspected conditions (not mental disorders or infectious disease) (3 sources) Encounter for screening for malignant neoplasm of prostate; Translations: [Encounter for screening for malignant neoplasm of rectum] Onset: 05-27-2021 Episodic Other upper respiratory disease (1 source) Bleeding from nose; Translations: [Epistaxis] Onset: 02-19-2023 Episodic Residual codes; unclassified (1 source) H/O: respiratory disease; Translations: [Personal history of other specified conditions] 01-25-2023 Episodic Screening and history of mental health and substance abuse codes (4 sources) Tobacco use and exposure - finding 11-21-2021 Chronic Substance-related disorders (9 sources) Nicotine dependence, cigarettes, uncomplicated; Translations: [Smoker] Onset: 11-10-2017 Resolved: 02-10-2023 11-04-2021 Chronic Unclassified (2 sources) Unknown / UNK(Unknown) Onset: 11-10-2017 Unclassified (5 sources) Body mass index 20-24 - normal 11-08-2021 Unclassified (5 sources) Drug therapy finding 06-26-2021 Unclassified (2 sources) COUGH, UNSPECIFIED; Translations: [COUGH, UNSPECIFIED] Onset: 04-16-2021 Unclassified (4 sources) Patient encounter status 11-21-2021 Urinary tract infections (1 source) Urinary tract infectious disease; Translations: [Urinary tract infection, site not specified] Episodic Viral infection (4 sources) COVID-19; Translations: [COVID-19] Onset: 04-19-2021 Past or Other Problems Problem Classification Problem Date Documented Da te Episodic/Chronic Abdominal pain (11 sources) Left lower quadrant pain; Translations: [Left lower quadrant pain] Onset: 05-23-2021 Episodic Chronic obstructive pulmonary disease and bronchiectasis (1 source) Bronchitis, not specified as acute or chronic; Translations: [BRONCHITIS NOT SPEC ACUTE/CHRON] Onset: 04-16-2021 Episodic Coronary atherosclerosis and other heart disease (1 source) Presence of coronary angioplasty implant and graft; Translations: [PRESENCE COR ANGPLSTY IMPLANT AND GRAFT] Onset: 04-16-2021 Episodic Diabetes mellitus without complication (3 sources) Other abnormal glucose; Translations: [Hyperglycemia] Onset: 05-27-2021 02-10-2023 Episodic Immunizations and screening for infectious disease (1 source) Encounter for immunization; Translations: [ENCOUNTER FOR IMMUNIZATION] Onset: 05-08-2021 Episodic Nonspecific chest pain (11 sources) Precordial pain; Translations: [Chest pain, unspecified] Onset: 09-28-2018 Episodic Other aftercare (1 source) termite control representative (current) use of antithrombotics/anti platelets; Translations: [SENIOR WEALTH ADVISOR ANTITHROMBOT/ANTIPLA TLETS] Onset: 07-19-2021 Episodic Other aftercare (1 source) termite control representative (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; Translations: [SNF CURRENT USE OF ASPIRIN] Onset: 07-19-2021 Episodic Other aftercare (1 source) Other intermodal customer service (current) drug therapy; Translations: [OTH SNF CURRENT DRUG THERAPY] Onset: 06-25-2021 Episodic Other aftercare (2 sources) Drug therapy finding; Translations: [detention (current) use of anticoagulants] Onset: 12-12-2022 02-10-2023 Episodic Other aftercare (2 sources) Patient encounter status; Translations: [detention (current) use of antithrombotics/anti platelets] Onset: 12-12-2022 02-10-2023 Episodic Other injuries and conditions due to external causes (2 sources) Angioedema; Translations: [Angioneurotic edema, initial encounter] Onset: 12-12-2022 02-10-2023 Episodic Other injuries and conditions due to external causes (2 sources) Angioneurotic edema, subsequent encounter; Translations: [Angioneurotic edema, subsequent encounter] Onset: 12-12-2022 Episodic Other lower respiratory disease (1 source) Dyspnea, unspecified; Translations: [DYSPNEA UNSPECIFIED] Onset: 06-25-2021 Episodic Other lower respiratory disease (2 sources) Dyspnea on exertion; Translations: [Other forms of dyspnea] Onset: 12-06-2021 02-10-2023 Episodic Other upper respiratory disease (6 sources) Epistaxis; Translations: [Epistaxis] Onset: 07-18-2021 Episodic Other upper respiratory disease (2 sources) Lesion of nose; Translations: [Other specified disorders of nose and nasal sinuses] Onset: 02-11-2023 02-11-2023 Episodic Other upper respiratory disease (2 sources) Deviated nasal septum; Translations: [Deviated nasal septum] Onset: 02-11-2023 02-11-2023 Episodic Residual codes; unclassified (2 sources) Tobacco user; Translations: [Tobacco use] Onset: 09-28-2018 02-10-2023 Episodic Residual codes; unclassified (1 source) Personal history of other specified conditions; Translations: [Personal history of other specified conditions] Onset: 01-25-2023 Episodic Unclassified (1 source) COUGH, UNSPECIFIED; Translations: [COUGH, UNSPECIFIED] Onset: 04-13-2021 Results Test Name Value Interpretation Reference Range Facility PSA, Screeningon 08-24-2023 Prostatic Spec. Ag 1.30 ng/mL Normal 0.00-4.00 [facility] Comment on above: Result Comment: The Hari ECLIA assay is used. Results obtained with different assay methods cannot be used interchangeably. Performed By: #### P SAS #### [facility] [employer] [facility] [place], [place] [address] Elementary Education Teacher: Austin Montes MD XR ABDOMEN (KUB) (SINGLE AP VIEW)on 08-24-2023 XR ABDOMEN (KUB) (SINGLE AP VIEW) EXAMINATION: ONE SUPINE XRAY VIEW(S) OF THE ABDOMEN 08/24/2023 9:11 am COMPARISON: 02/20/2022 HISTORY: ORDERING SYSTEM PROVIDED HISTORY: Renal stone FINDINGS: Gas in nondilated stomach and colon. No significant small bowel gas. No urinary tract stones identified. IMPRESSION: Unremarkable appearing abdomen Interpreted by: Aaron Davalos MD Signed by: Aaron Davalos MD 08/24/23 Final result Normal [facility] Insurance Correspondenceon 0 08-21-2023 Insurance Correspondence [id number]#1.00TIFF Normal [facility] RAD - MISCon 08-21-[address] [facility] [id number]#1.00TIFF Normal [facility] 08-20-[address] [facility] [id number]#1.00TIFF Normal [facility] Consent for Procedure/Surger yon 07-21-2023 Consent for Procedure/Surgery [id number]#1.00TIFF Normal [facility] Ambulatory Visit Summaryon 0 07-17-2023 Ambulatory Visit Summary RONNELL PERES :1955 Visit Date:07/17/2023 Ambulatory Visit Instructions Your Care Team Attending Physician - LOW AVILA, Aaron White Primary Care Physician - Dylan Zaidi MD This Is Your Medications List Contact prescribing physician if questions or concerns amlodipine (Norvasc 5 mg Tab) aspirin (aspirin 81 mg oral capsule) clopidogrel (Plavix 75 mg Tab) doxepin (doxepin 10 mg Cap) isosorbide mononitrate (isosorbide mononitrate 30 mg ER Tab) metoprolol (metoprolol 25 mg ER Tab) psyllium (Metamucil) rosuvastatin tamsulosin (Flomax 0.4 mg Cap) varenicline (varenicline 1 mg oral tablet) Procedures Performed Nasal cautery (02/19/2023), Cystoscopic removal of ureteric stent (03/05/2017), Cystoscope (02/23/2017), Cystoscope (02/16/2017), Insertion of renal artery stent, Lithotripsy, Nasal cautery, Placement of stent in cardiac conduit. Discharge Vitals Heart Rate (Peripheral) 64 Respiratory Rate 16 Blood Pressure 116/64 Height 168 cm Height 66 in Weight 66.1 kg Weight 145.42 lb BMI 23.42 Medications What How Much When Instructions Unchanged amlodipine (Norvasc 5 mg Tab) 1 Tablets By Mouth Every day Contact prescribing physician if questions or concerns Unchanged aspirin (aspirin 81 mg oral capsule) 1 Capsules By Mouth Every day Contact prescribing physician if questions or concerns Unchanged clopidogrel (Plavix 75 mg Tab) 1 Tablets By Mouth Every day Contact prescribing physician if questions or concerns Unchanged doxepin (doxepin 10 mg Cap) 1 Capsules By Mouth 3 times a day as needed for Anxiety Contact prescribing physician if questions or concerns Unchanged isosorbide mononitrate (isosorbide mononitrate 30 mg ER Tab) 1 Tablets By Mouth Once a day (in the morning) Contact prescribing physician if questions or concerns Unchanged metoprolol (metoprolol 25 mg ER Tab) 1 Tablets By Mouth Every day Contact prescribing physician if questions or concerns Unchanged psyllium (Metamucil) By Mouth Every day Contact prescribing physician if questions or concerns Unchanged rosuvastatin 40 Milligram By Mouth Every day Contact prescribing physician if questions or concerns Unchanged tamsulosin (Flomax 0.4 mg Cap) 1 Capsules By Mouth Every day Contact prescribing physician if questions or concerns Unchanged varenicline (varenicline 1 mg oral tablet) 1 Tablets By Mouth 2 times a day Contact prescribing physician if questions or concerns Medications and Immunizations Administered Not Given influenza virus vaccine, inactivated, Patient Refuses Allergies lisinopril (Dysphagia) Problems Ongoing - Any problem that you are currently receiving treatment for. Alcohol abuse Anticoagulated Antiplatelet or antithrombotic long-term use BMI 23.0-23.9, adult BPH with urinary obstruction Chronic obstructive pulmonary disease GERD (gastroesophageal reflux disease) History of kidney stones History of myocardial infarction Hyperlipidemia Hypertension Kidney stone Reducible left inguinal hernia Smoker Tobacco use Ureteral stone with hydronephrosis Historical - Any problem that you are no longer receiving treatment for. Anxiety Patient Survey You may receive a survey via text or e-mail asking about your office visit. Please share your experience with us by completing your survey. We appreciate your feedback and thank you for choosing us for your care. Normal [facility] General Surgery Office/Clini c Noteon 07-17-2023 General Surgery Office/Clinic Note Chief Complaint re-evaluate left inguinal hernia HPI Staff Presents to re-evaluate left inguinal hernia. Last evaluation completed 10/2022. Patient was waiting cardiac clearance to schedule; this has been received. Patient on Plavix. Denies change in size. Reports intermittent discomfort. Denies nausea or vomiting. Denies bowel changes. History of Present Illness 68 yo male with h/o CAD, [place], htn, hyperlipidemia, COPD, presents for reevaluation of left inguinal hernia; evaluated multiple times in past, last seen 10/2022; hernia reducible but sore at times, recently had coughing episode that caused soreness in hernia for several days; no skin changes, no N/V or bowel changes; patient cleared by Cardiology; no previous abd operations, on Plavix and baby asa daily, no NSAID use; smokes daily. Review of Systems PHQ Score Initial Depression Screen Score: 0 SCORE ROS - Provider Constitutional: no fever, no sweats, no weight loss. Eyes: no glasses, no blurred vision, no visual loss. ENMT: no dentures, no hoarseness, no swallowing difficulties, no hearing loss, no ear infection(s), no nose bleeds. Cardiovascular: normal blood pressure, no chest pain, regular heartbeat, no heart murmur. Respiratory: no shortness of breath, no cough, no asthma, no wheezing. Gastrointestinal: no nausea, no vomiting, no diarrhea, no constipation, no blood in stool, no change in bowel habits, yes abdominal pain, no hepatitis. Genitourinary: no kidney stones, no urine infection, no dysuria. Musculoskeletal: no pain, no weakness. Skin: no changing moles, no rash, no skin lumps. Neurologic: no seizures, no epilepsy, no headache. Psychiatric: no emotional or psychiatric problem. Heme/Lymph: no bleeding problems, no anemia, no blood clots, no transfusions. Allergy/Immunologic: no swollen lymph nodes/glands, no IV drug abuse. Other: Additional ROS info: Except as noted in the above Review of Systems and in the History of Present Illness, all other systems have been reviewed and are negative or noncontributory. Physical Exam Vitals & Measurements HR: 64(Peripheral) RR: 16 BP: 116/64 HT: 66 in HT: 168 cm WT: 66.1 kg WT: 145.42 lb BMI: 23.42 HEENT: normal conjunctiva, sclera clear, no scleral icterus, EOM intact, PERRLA, oral mucosa moist without lesions. Neck: trachea midline, no mass, symmetric, no thyromegaly or nodules, no adenopathy Respiratory: lungs CTA, respirations non labored. Cardiovascular: regular rate and rhythm, no murmur, no pedal edema or varicosities. Gastrointestinal: soft, non distended, no tenderness, no masses, reducible left inguinal hernia, nontender, no skin changes; diastasis recti no, no hepatosplenomegaly; normal bs Lymphatic: no cervical adenopathy, no supraclaviclar adenopathy, no inguinal adenopathy. Musculoskeletal: normal gait, digits and nails without infection, nodes, cyanosis, clubbing. Skin: no rashes, no lesions, no ulcers, no subcutaneous nodules, induration. Psychiatric/Neuro: oriented to time, place, person, judgement normal, affect appropriate for age, insight intact, no focal deficits. Tests: review of old records completed , Discussed surgical options, risks, and possible complications with patient. Assessment/Plan 1. Reducible left inguinal hernia (K40.90: Unilateral inguinal hernia, without obstruction or gangrene, not specified as recurrent) plan left inguinal herniorrhaphy with mesh insertion, informed consent obtained. Ancef 2 gms IV prior to OR TAP block per anesthesia SCDs Follow-up No qualifying data available Problem List/Past Medical History Ongoing Alcohol abuse Anticoagulated Antiplatelet or antithrombotic long-term use BMI 23.0-23.9, adult BPH with urinary obstruction Chronic obstructive pulmonary disease GERD (gastroesophageal reflux disease) History of kidney stones History of myocardial infarction Hyperlipidemia Hypertension Kidney stone Reducible left inguinal hernia Smoker Tobacco use Ureteral stone with hydronephrosis Historical Anxiety Procedure/Surgical History Nasal cautery (02/19/2023), Cystoscopic removal of ureteric stent (03/05/2017), Cystoscope (02/23/2017), Cystoscope (02/16/2017), Insertion of renal artery stent, Lithotripsy, Nasal cautery, Placement of stent in cardiac conduit. Medications aspirin 81 mg oral capsule, 81 mg= 1 cap(s), Oral, Daily doxepin 10 mg Cap, 10 mg= 1 cap(s), Oral, TID, PRN Flomax 0.4 mg Cap, 0.4 mg= 1 cap(s), Oral, Daily, 3 refills, Still taking, not as prescribed: pt forgets to take daily isosorbide mononitrate 30 mg ER Tab, 30 mg= 1 tab(s), Oral, qAM Metamucil, Oral, Daily metoprolol 25 mg ER Tab, 25 mg= 1 tab(s), Oral, Daily Norvasc 5 mg Tab, 5 mg= 1 tab(s), Oral, Daily Plavix 75 mg Tab, 75 mg= 1 tab(s), Oral, Daily rosuvastatin, 40 mg, Oral, Daily varenicline 1 mg oral tablet, 1 mg= 1 tab(s), Oral, BID, Not taking: pt quit taking bc he thought it made him not sleep Allergies lisinopri (more content not included)... [facility] Comment on above: Result Comment: Elec tronically Signed By: LOW AVILA, Aaron Valerio\Date and Time Signed: 07/17/23 18:57 EST [employer] 07-13-2023 Forms [id number]#1.00TIFF [facility] Office Visiton 07-03-2023 Follow-up visit [id number] Ronnell Peres 1955 M Date Provider Department Center 07/03/2023 38[facility] Family History Problem Relation Age of Onset Heart attack Mother Family Status - Relation Status Age at Mother Level of Service:03455 OR OFFICE/OUTPATIENT ESTABLISHED MOD MDM 30 MIN Normal [facility] IntraOperative Documentson IntraOperative Documents [id number]#1.00TIFF [facility] Consent for Anesthesiaon Consent for Anesthesia [id number]#1.00TIFF [facility] Discharge Instructionson Discharge Instructions [id number]#1.00TIFF [facility] IntraOperative Documentson 1 IntraOperative Documents [id number]#1.00TIFF [facility] Physician Orderon 02-20-2023 Physician Order [id number]#1.00TIFF [facility] Preoperative Documentson Preoperative Documents [id number]#1.00TIFF [facility] Progress Note-Physicianon Progress Note-Physician Patient: RONNELL PERES Age: 68 years Sex: Male : 1955 Associated Diagnoses: None Author: MD De La Vega Ahmad F Postoperative Information Postoperative disposition: Postoperative disposition: To PACU. Optimetrix number: Optimetrix number [id number]. Anesthetic utilized: General. Health Status Allergies: Allergic Reactions (Selected) No Known Allergies No Known Medication Allergies Physical Examination VS/Measurements Pain Assessment: Controlled. General: Awake, Alert, Appropriate. Respiratory: Adequate air exchange. Cardiovascular: Stable, Normal peripheral perfusion. Neurological: Normal sensory function, Normal motor function. Assessment Anesthetic outcome No anesthetic complications noted. Adequate pain relief. able to void without difficulty, able to ambulate with assist, tolerating PO intake, no N/V. Review / Management Condition: Stable. Plan Transfer/Discharge: Transfer/Discharge Discharge when meets criteria ( To home ). [facility] Comment on above: Result Comment: Elec tronically Signed By: MD De La Vega Ahmad F\.br\Date and Time Signed: 02/20/23 14:58 EDT Progress Note-Physician Patient: RONNELL PERES Age: 68 years Sex: Male : 1955 Associated Diagnoses: None Author: MD De La Vega Ahmad F Preoperative Information Time patient last ate or drank:=== (npo 8 hours) Anesthesia history: Patient history: No prior anesthesia problems. Re-evaluation prior to induction: Completed, Initial evaluation reviewed. Review of Systems Respiratory: No shortness of breath. Cardiovascular: No chest pain. Hematology/Lymphatics: No bruising tendency, No bleeding tendency. Health Status Allergies: Allergic Reactions (All) No Known Allergies No Known Medication Allergies Current medications: (Selected) Prescriptions Prescribed Flomax 0.4 mg Cap: 0.4 mg = 1 cap(s), Oral, Daily, # 30 cap(s), Refills(s) 3, Pharmacy: [facility], 168, cm, 06/26/21 9:30:00 EST, Height/Length Dosing, 65, kg, 06/26/21 9:30:00 EST, Weight Dosing Documented Medications Documented Metamucil: Oral, Daily, Refills(s) 0, Constipation Plavix 75 mg Tab: 75 mg = 1 tab(s), Oral, Daily, Refills(s) 0, Blood Thinner aspirin 81 mg oral capsule: 81 mg = 1 cap(s), Oral, Daily, Blood Thinner doxepin 10 mg Cap: 10 mg = 1 cap(s), Oral, TID, PRN Anxiety, Refills(s) 0 isosorbide mononitrate 30 mg ER Tab: 30 mg = 1 tab(s), Oral, qAM, Refills(s) 0, High blood pressure lisinopril 5 mg Tab: 5 mg = 1 tab(s), Oral, Daily, High blood pressure metoprolol 25 mg ER Tab: 12.5 mg = 0.5 tab(s), Oral, Daily, High blood pressure rosuvastatin: 40 mg, Oral, Daily, High cholesterol varenicline 1 mg oral tablet: 1 mg = 1 tab(s), Oral, BID, Refills(s) 0, Smoking cessation Problem list: All Problems History of kidney stones / SNOMED CT 9343399294 / Confirmed Chronic obstructive pulmonary disease / SNOMED CT 57056366 / Confirmed History of myocardial infarction / SNOMED CT 8609011809 / Confirmed Hyperlipidemia / SNOMED CT 60282669 / Confirmed Hypertension / SNOMED CT 2844263986 / Confirmed Kidney stone / SNOMED CT 485147911 / Confirmed BPH with urinary obstruction / SNOMED CT 8296968369 / Confirmed Ureteral stone with hydronephrosis / SNOMED CT 35490031 / Confirmed Anticoagulated / SNOMED CT 975860703 / Confirmed GERD (gastroesophageal reflux disease) / SNOMED CT 303744071 / Confirmed Smoker / SNOMED CT 059964325 / Confirmed Alcohol abuse / SNOMED CT 61667640 / Confirmed BMI 22.0-22.9, adult / SNOMED CT 4718759625 / Confirmed Reducible left inguinal hernia / SNOMED CT 603636000 / Confirmed Antiplatelet or antithrombotic long-term use / SNOMED CT 120981163 / Confirmed Tobacco use / SNOMED CT 459095902 / Confirmed Resolved: Anxiety / SNOMED CT 15171108 Histories Past Medical History: Resolved Anxiety (06645959): Resolved. Family History: Primary malignant neoplasm of lung Grandparent Stroke Mother Cirrhosis of liver Father Aneurysm Mother Procedure history: Right Nasal cautery (193154008) on 02/19/2023 at 68 Years. Cystoscopic removal of ureteric stent (609263349) on 03/05/2017 at 62 Years. Cystoscope/stone extraction/Rt. stent replacement ([id number]) on 02/23/2017 at 62 Years. Cystoscope/RG/ureteroscopy/Rt. stent placement (79029094) on 02/16/2017 at 62 Years. Placement of stent in cardiac conduit (5760319077). Lithotripsy (229716786). Insertion of renal artery stent (7113877766). Nasal cautery (169314932). Social History Social & Psychosocial Habits Alcohol 02/17/2023 Use: Current Type: Beer Frequency: 3-5 times per week Substance Abuse 02/17/2023 Risk Assessment: Denies Substance Abuse Tobacco 02/17/2023 Tobacco Use: 10 or more cigarettes (1/ Smokeless tobacco use: Former smokeless tobacco Type: Cigarettes Tobacco use per day: 0.5 Started at age: 16.0 Years Smoking Cessation Yes . Physical Examination Please see preop flow sheet Airway: Mallampati classification: II (soft palate, fauces, uvula visible). Respiratory: Lungs are clear to auscultation. Cardiovascular: Normal rate, Regular rhythm. Neurologic: Alert. Review / Management Results review Interpretation of Outside Results Chest x-ray results Radiology results ECG interpretation Condition Plan [place] [employer]hesi[employer] (ASA) physical status classification: Class III. Anesthetic Preoperative Plan Anesthesia: General. . Anesthetic plan, risks, benefits, and alternatives discussed with the patient and/or family. Risks discussed: nausea, vomiting, headache, sore throat, dental injury, serious complications. Patient verbalized understanding. Communication: face to face with patient 5 minutes. [facility] Comment on above: Result Comment: Elec tronically Signed By: MD Ceferino, Jossie Lu\.massimo\Date and Time Signed: 02/20/23 14:56 EDT Consent for Procedure/Surger yon 02-19-2023 Consent for Procedure/Surgery [id number]#1.00TIFF [facility] Consent for Treatmenton 02-08 Consent for Treatment [id number]#1.00TIFF [facility] Discharge Instructionson Discharge Instructions RONNELL PERES :1955 Visit Date:02/19/2023 Inpatient Discharge Instructions Your Care Team Admitting Physician - Portillo Ludwig MD Referring Physician - Portillo Ludwig MD Reason for Your Visit EPISTAXIS Tests Performed BUN Creatinine eGFR Glucose Random Lytes This Is Your Medications List aspirin (aspirin 81 mg oral capsule) clopidogrel (Plavix 75 mg Tab) doxepin (doxepin 10 mg Cap) isosorbide mononitrate (isosorbide mononitrate 30 mg ER Tab) lisinopril (lisinopril 5 mg Tab) metoprolol (metoprolol 25 mg ER Tab) psyllium (Metamucil) rosuvastatin tamsulosin (Flomax 0.4 mg Cap) varenicline (varenicline 1 mg oral tablet) Procedure History Cystoscopic removal of ureteric stent (03/05/2017), Cystoscope (02/23/2017), Cystoscope (02/16/2017), Insertion of renal artery stent, Lithotripsy, Nasal cautery, Placement of stent in cardiac conduit. What to do next Instructions From Your Doctor Event Name Event Result Discharge Instructions Freetext No nose blowing or strenuous activity one weekAntibiotic ointment to the right nose twice daily for 2 weeks Discharge Activity Expect mild pain, Expect minimal amount of drainage and/or bleeding, Activity as tolerated Discharge Diet(s) Regular Call Your Doctor For Persistent or heavy bleeding Discharge Instructions Discharge Instructions New Follow Up Appointments after Discharge Follow Up with Portillo Ludwig When: Comments: As needed Medications What How Much When Instructions Next Dose Unchanged aspirin (aspirin 81 mg oral capsule) 1 Capsules By Mouth Every day Unchanged clopidogrel (Plavix 75 mg Tab) 1 Tablets By Mouth Every day Unchanged doxepin (doxepin 10 mg Cap) 1 Capsules By Mouth 3 times a day as needed for Anxiety Unchanged isosorbide mononitrate (isosorbide mononitrate 30 mg ER Tab) 1 Tablets By Mouth Once a day (in the morning) Unchanged lisinopril (lisinopril 5 mg Tab) 1 Tablets By Mouth Every day Unchanged metoprolol (metoprolol 25 mg ER Tab) 0.5 Tablets By Mouth Every day Unchanged psyllium (Metamucil) By Mouth Every day Unchanged rosuvastatin 40 Milligram By Mouth Every day Unchanged tamsulosin (Flomax 0.4 mg Cap) 1 Capsules By Mouth Every day Unchanged varenicline (varenicline 1 mg oral tablet) 1 Tablets By Mouth 2 times a day Test Results BMP BUN: 16 mg/dL (02/17/23 14:52:00) Creatinine: 0.8 mg/dL (02/17/23 14:52:00) Sodium Lvl: 142 mmol/L (02/17/23 14:52:00) Potassium Lvl: 3.9 mmol/L (02/17/23 14:52:00) Chloride: 112 mmol/L High (02/17/23 14:52:00) CO2: 24 mmol/L (02/17/23 14:52:00) AGAP: 10 mEq/L (02/17/23 14:52:00) Allergies No Known Allergies No Known Medication Allergies Problems Ongoing - Any problem that you are currently receiving treatment for. Alcohol abuse Anticoagulated Antiplatelet or antithrombotic long-term use BMI 22.0-22.9, adult BPH with urinary obstruction Chronic obstructive pulmonary disease GERD (gastroesophageal reflux disease) History of kidney stones History of myocardial infarction Hyperlipidemia Hypertension Kidney stone Reducible left inguinal hernia Smoker Tobacco use Ureteral stone with hydronephrosis Historical - Any problem that you are no longer receiving treatment for. Anxiety Education Materials Common Emergency Awareness Tips IS IT A STROKE? Act FAST and Check for these signs: FACE Does the face look uneven? ARM Does one arm drift down? SPEECH Does their speech sound strange? TIME Call at any sign of stroke Heart Attack Signs Chest discomfort: Most heart attacks involve discomfort in the center of the chest and lasts more than a few minutes, or goes away and comes back. It can feel like uncomfortable pressure, squeezing, fullness or pain. Discomfort in upper body: Symptoms can include pain or discomfort in one or both arms, back, neck, jaw or stomach. Shortness of breath: With or without discomfort. Other signs: Breaking out in a cold sweat, nausea, or lightheaded. Remember, MINUTES DO MATTER. If you experience any of these heart attack warning signs, call to get immediate medical attention! Patient Survey You may receive a survey in the mail asking you about your stay with us. We want to hear from you, please share your experience with us by completing your survey. Thank you for choosing [facility]. Patient Portal You may access all of your results and other medical record information on our secure patient portal. If you are not signed up for this yet, please contact [employer] at [phone] to get signed up today. Patient Name: RONNELL PERES I have received this information and my questions have been answered. Patient/Shipping And Receiving Clerk Name: Patient/Shipping And Receiving Clerk Signature: __ (more content not included)... [facility] Comment on above: Result Comment: Elec tronically Signed By: Jeramie HADLEY, Christian Dhaliwal\.br\Date and Time Signed: 02/19/23 13:08 EDT H&P Updateon 02-19-2023 H&P Update [id number]#1.00TIFF Normal [facility] Inpatient Patient Summaryon 02-19-2023 Inpatient Patient Summary [place] [id number] [facility] Clinical Discharge Instructions PERSON INFORMATION Name: RONNELL PERES PHYSICIANS Admitting Physician: Portillo Ludwig MD Attending Physician: Portillo Ludwig MD PCP: Ev AVILA, Dylan Discharge Diagnosis: Epistaxis, recurrent Comment: PATIENT EDUCATION INFORMATION Instructions: Post Op Patient Instructions - FT (CUSTOM) Medication Leaflets: Follow up: With: Address: When: Portillo Ludwig Comments: As needed MEDICATION LIST Medications to Continue with No Changes Other Medications aspirin (aspirin 81 mg oral capsule) 1 Capsules By Mouth every day. clopidogrel (Plavix 75 mg Tab) 1 Tablets By Mouth every day. doxepin (doxepin 10 mg Cap) 1 Capsules By Mouth 3 times a day as needed Anxiety. isosorbide mononitrate (isosorbide mononitrate 30 mg ER Tab) 1 Tablets By Mouth once a day (in the morning). lisinopril (lisinopril 5 mg Tab) 1 Tablets By Mouth every day. metoprolol (metoprolol 25 mg ER Tab) 0.5 Tablets By Mouth every day. psyllium (Metamucil) By Mouth every day. rosuvastatin 40 Milligram By Mouth every day. tamsulosin (Flomax 0.4 mg Cap) 1 Capsules By Mouth every day. Refills: 3. varenicline (varenicline 1 mg oral tablet) 1 Tablets By Mouth 2 times a day. Comment: Normal [facility] Main OR Intraoperative Recor don 02-19-2023 Main OR Intraoperative Record IntraOp Document Type FT Summary Primary Physician: Portillo Ludwig MD Finalized Date/Time: 02/19/23 13:57:10 Pt. Name: RONNELL PERES/Sex: 1955 Male Med Rec #: [id number] Physician: Portillo Ludwig MD Financial #: [id number] Pt. Type: A Room/Bed: [place] [address] Admit/Disch: 02/19/23 08:47:56 - 02/19/23 13:45:00 Institution: Case Times FT Entry 1 Patient Times In Room 02/19/23 11:29:00 Out Room 02/19/23 11:58:00 Procedure Times Start 02/19/23 11:43:00 Stop 02/19/23 11:49:00 Anesthesia Times Start 02/19/23 11:29:00 Stop 02/19/23 11:58:00 Last Modified By: Andrew Monzon RN 02/19/23 11:57:33 General Comments: 02/19/23 Chart opened to review and send charges [facility] Case Attendance FT Entry 1 Entry 2 Entry 3 Case Attendee Orlando NAPOLES CRNA, Queen Marin AVILA, Gagan Kline Role Performed CUSTOMER EXPERIENCE RETAIL CLERK Surgeon - Primary 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 - Primary Time In 02/19/23 11:29:00 02/19/23 11:41:00 02/19/23 11:29:00 Time Out 02/19/23 11:58:00 02/19/23 11:50:00 02/19/23 11:58:00 Procedure NASAL ENDOSCOPY(Right) NASAL ENDOSCOPY(Right) NASAL ENDOSCOPY(Right) Comments CEFERINO DE [place] 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 Last Modified By: Ivet MANAGER OF ADMINISTRATION, Evelina Monzon RN, Andrew Monzon RN, Andrew Velasco 02/19/23 13:54:59 02/19/23 12:09:31 02/19/23 12:09:31 Entry 4 Entry 5 Entry 6 Case Attendee Zonia Ribera MANAGER OF ADMINISTRATION, Justice Monzon RN, Andrew Velasco Role Performed Scrub - Primary 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 - Relief 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 - Primary Time In 02/19/23 11:29:00 02/19/23 11:38:00 02/19/23 11:47:00 Time Out 02/19/23 11:39:00 02/19/23 11:58:00 02/19/23 11:58:00 Procedure NASAL ENDOSCOPY(Right) NASAL ENDOSCOPY(Right) NASAL ENDOSCOPY(Right) Comments Last Modified By: Nicolás HADLEY, Andrew Monzon RN, Andrew Hurst RN 02/19/23 12:09:31 02/19/23 12:09:31 02/19/23 12:09:32 Perioperative Protocols FT Pre-Care Text: Implements protective measures prior to operative or invasive procedure, confirms identity before the operative or invasive procedure, verifies operative procedure, surgical site, and laterality Entry 1 Procedure(s) NASAL ENDOSCOPY(Right) Patient Identity Birthday, ID Band Verified (select at Check, Patient least 2): Participation Consents / H and P Anesthesia Consent, Operative Site Present Verified HandP, Surgery/Procedure Marking Verified Consent Surgical Site Yes Laterality Verified Yes Verified Procedure Verified Yes Correct Patient Yes Position Verified Availability Equipment, Medication Prep Dry n/a Verified (If Applicable) PreOp Antibiotic No Time Out Orlnado NAPOLES CRNA, Queen Lawson Wolf, Marin AVILA, Jemal Andre Terry T, Wilhelm CST, Justice Time Out Complete 02/19/23 11:42:00 Outcomes Met? Yes Last Modified By: Andrew Monzon RN 02/19/23 12:09:33 Post-Care Text: The patient is free from signs and symptoms of injury caused by extraneous objects Allergy Information FT Pre-Care Text: Verifies allergies Entry 1 Allergies Reviewed? Yes Allergies Reviewed Self/Patient With Outcomes Met? Yes Last Modified By: Andrew Monzon RN 02/19/23 11:13:07 Post-Care Text: The patient received appropriate medication(s) safely administered during the perioperative period Surgical Procedures FT Entry 1 Procedure Description Procedure NASAL ENDOSCOPY Modifiers Right Surgeon Description RIGHT NASAL ENDOSCOPY WITH CAUTERY Primary Procedure Yes Primary Surgeon Portillo Ludwig MD Start 02/19/23 11:43:00 Stop 02/19/23 11:49:00 Anesthesia Type General Surgical Service ENT Wound Class 2 - Clean-Contaminated Last Modified By: Andrew Monzon RN 02/19/23 12:09:36 General Case Data FT Pre-Care Text: Classifies surgical wound, implements aseptic technique, initiates traffic control Entry 1 Case Information OR OR 2 FT Case Level Level 3 Wound Class 2 - Clean-Contaminated Specialty ENT ASA Class 3 Preop Diagnosis EPISTAXIS Postop Same As Preop Yes Postop Diagnosis EPISTAXIS Outcomes Met? Yes Last Modified By: Andrew Monzon RN 02/19/23 11:46:13 Post-Care Text: The patient is free from signs and symptoms of infection Skin Assessment (Pre Procedure) FT Pre-Care Text: Implements protective measures to prevent skin/ tissue injury due to thermal or mechanical sources Evaluates for signs and symptoms of physical injury to skin and tissue Entry 1 Skin Integrity Intact, [place], Warm, and Skin Abnormality No Dry Outcomes Met? Yes Last Modified By: Andrew Monzon RN 02/19/23 11:46:22 Post-Care Text: The patient is free from signs and symptoms of injury caused by extraneous objects Patient Positioning FT Pre-Care Text: Identifies physical alterations that require additional precautions for procedure-specific positioning, verifies presence of prosthetics or corrective devices, positions the patient, evaluates the patient for signs and symptoms of injury as a result of positioning Entry 1 Procedure [employer] (more content not included)... Normal [facility] Main OR PACU I Recordon 02-08 Main OR PACU I Record PACU Phase I Document Type FT Summary Primary Physician: Portillo Ludwig MD Finalized Date/Time: 02/19/23 12:35:40 Pt. Name: RONNELL PERES Elizabeth CraigB./Sex: 1955 Male Med Rec #: [id number] Physician: Portillo Ludwig MD Financial #: [id number] Pt. Type: A Room/Bed: [place] [address] Admit/Disch: 02/19/23 08:47:56 - Institution: Case Times PACU I FT Pre-Care Text: Identifies barriers to communication and implements measures to provide psychological support Develops individualized plan of care, and ensures continuity of care Maintains patient's dignity and privacy, and maintains patient confidentiality Identifies and reports philosophical, cultural, and spiritual beliefs and values Identifies individual values and wishes concerning care Implements aseptic technique, and administers prescribed antibiotic therapy and immunizing agents as ordered Evaluates postoperative tissue perfusion Implements thermoregulation measures, and monitors body temperature Evaluates postoperative respiratory status Evaluates postoperative cardiac status Evaluates postoperative neurological status Assesses pain control, collaborated in initiating patient-controlled analgesia and implements alternative methods of pain control Verifies allergies, administers prescribed medications and solutions, evaluates response to medications Entry 1 In PACU I 02/19/23 11:58:00 Discharge from PACU 02/19/23 12:28:00 I Outcomes Met? Yes Last Modified By: Sherry Brady RN 02/19/23 12:34:40 Post-Care Text: The patient demonstrates knowledge of the expected response to the operative or invasive procedure The patient's care is consistent with the individualized perioperative plan of care The patient's right to privacy is maintained The patient's value system, lifestyle, ethnicity, and culture are considered, respected, and incorporated into the perioperative plan of care The patient participates in decisions affecting his or her perioperative plan of care The patient is free from signs and symptoms of infection The patient has wound/tissue perfusion consistent with or improved from baseline levels established preoperatively The patient is at or returning to normothermia at the conclusion of the immediate postoperative period The patient's respiratory function is consistent with or improved from baseline levels established preoperatively The patient's cardiovascular status is consistent with or improved from baseline levels established preoperatively The patient's cardiovascular status is consistent with or improved from baseline levels established preoperatively The patient demonstrates and/or reports adequate pain control throughout the perioperative period The patient received appropriate medication(s), safely administered during the perioperative period Acuity Level PACU I FT Entry 1 Start Time 02/19/23 11:58:00 Stop Time 02/19/23 12:28:00 Acuity Level Acuity Level I Last Modified By: Sherry Brady RN 02/19/23 12:35:32 Finalized By: Sherry Brady RN Document Signatures Signed By: Sherry Brady RN 02/19/23 12:35 [facility] Main OR PACU II Recordon Main OR PACU II Record PACU Phase II Document Type FT Summary Primary Physician: Portillo Ludwig MD Finalized Date/Time: 02/19/23 13:43:43 Pt. Name: RONNELL PERES/Sex: 1955 Male Med Rec #: [id number] Physician: Portillo Ludwig MD Financial #: [id number] Pt. Type: Room/Bed: [place] [address] Admit/Disch: 02/19/23 08:47:56 - Institution: Case Times PACU II FT Pre-Care Text: Identifies barriers to communication and implements measures to provide psychological support and determines knowledge level Develops individualized plan of care, and ensures continuity of care Maintains patient's dignity and privacy, and maintains patient confidentiality Identifies and reports philosophical, cultural, and spiritual beliefs and values Identifies individual values and wishes concerning care administers prescribed antibiotic therapy and immunizing agents as ordered, Evaluates postoperative tissue perfusion Implements thermoregulation measures, and monitors body temperature Evaluates postoperative respiratory status Evaluates postoperative cardiac status Evaluates postoperative neurological status Assesses pain control, collaborated in initiating patient-controlled analgesia and implements alternative methods of pain control Verifies allergies, administers prescribed medications and solutions, evaluates response to medications Entry 1 In PACU II 02/19/23 12:30:00 Discharge from PACU 02/19/23 13:45:00 II Outcomes Met? Yes Last Modified By: Christian Bobo RN 02/19/23 13:43:41 Post-Care Text: The patient demonstrates knowledge of the expected response to the operative or invasive procedure The patient's care is consistent with the individualized perioperative plan of care The patient's right to privacy is maintained The patient's value system, lifestyle, ethnicity, and culture are considered, respected, and incorporated into the perioperative plan of care The patient participates in decisions affecting his or her perioperative plan of care. The patient is free from signs and symptoms of infection The patient has wound/tissue perfusion consistent with or improved from baseline levels established preoperatively The patient is at or returning to normothermia at the conclusion of the immediate postoperative period The patient's respiratory function is consistent with or improved from baseline levels established preoperatively The patient's cardiovascular status is consistent with or improved from baseline levels established preoperatively The patient's neurological status is consistent with or improved from baseline levels established preoperatively The patient demonstrates and/or reports adequate pain control throughout the perioperative period The patient received appropriate medication(s), safely administered during the perioperative period Finalized By: Christian Bobo RN Document Signatures Signed By: Christian Bobo RN 02/19/23 13:43 Normal [facility] Monitor Recordon 02-19-2023 Monitor Record [id number] Normal [facility] Operative Reporton Operative Report SURGERY DATE: 2022 PREOPERATIVE DIAGNOSIS: Recurrent right epistaxis POSTOPERATIVE DIAGNOSIS: Recurrent right epistaxis OPERATION: Right nasal endoscopy and cautery ANESTHESIA: General endotracheal COMPLICATIONS: None FINDINGS: Right anterior septal bleeding site INDICATIONS: This 68-year-old man was seen eight days ago for recurrent right epistaxis. Apparent lesion causing his bleeding was cauterized with silver nitrate in the office but he returned to the office two days ago with recurrent bleeding from the right side of the nose. PROCEDURE: The patient identified in the Holding Area and taken back to the Operating Room where he was placed in a supine position. After induction of general endotracheal anesthesia, the right nose was approached with a 30 degree nasal endoscope and examined. Two potential bleeding sites in the right anterior septum were cauterized with electrocautery. Afrin-soaked pledgets were then placed in the nose and after waiting adequate time for decongestion, the remainder of the right nose was examined from anterior to posterior and no other potential bleeding site was identified. Antibiotic ointment was placed over the cautery site and the patient was awakened and taken to the Recovery Room in good condition. Portillo Ludwig Jr., M.D. Dictated: 02/19/2023 [id number] Transcribed: 02/19/2023 cc:Dylan Zaidi M.D. [facility] Comment on above: Result Comment: Elec tronically Signed By: Marin AVILA, Portillo Gtz\.br\Date and Time Signed: 02/19/23 15:00 EDT Outpatient Surgery Discharge Instructionon 02-19-2023 Outpatient Surgery Discharge Instruction [place] [address] Patient Discharge Instructions PERSON INFORMATION Name: RONNELL PERES Date of : 1955 Current Date: 02/19/2023 13:06:31 PHYSICIANS Admitting Physician: Portillo Ludwig MD Discharge Diagnosis: Epistaxis, recurrent RONNELL PERES has been given the following list of follow-up instructions, prescriptions, and patient education materials: PATIENT FOLLOW-UP INFORMATION Diet: Regular Discharge Activity: Expect mild pain, Expect minimal amount of drainage and/or bleeding, Activity as tolerated Call Your Doctor For: Persistent or heavy bleeding Additional Instructions: No nose blowing or strenuous activity one week Antibiotic ointment to the right nose twice daily for 2 weeks IF UNABLE TO CONTACT YOUR PHYSICIAN AND YOU FEEL IT IS AN EMERGENCY, GO TO THE NEAREST EMERGENCY ROOM OR CALL 911 JA Alba GARY A, have received the attached patient education materials/instructions and have verbalized understanding: May we do a follow up call? Yes No I was present when discharge instructions were given Patient Signature Date Clinican/Nurse Signature Date Follow up: With: Address: When: [place] [place] Comments: As needed Pharmacy Information: You may receive a survey from [employer] asking you to rate your care experience. Your feedback is important and will help us understand what we do well and how we can improve the quality of care we provide to you, your loved ones and our community. It?s an honor to serve you. Thank you for choosing [facility] HERE ARE THE MEDICATION CHANGES THAT OCCURRED DURING YOUR HOSPITAL STAY Medications to Continue with No Changes Other Medications aspirin (aspirin 81 mg oral capsule) 1 Capsules By Mouth every day. clopidogrel (Plavix 75 mg Tab) 1 Tablets By Mouth every day. doxepin (doxepin 10 mg Cap) 1 Capsules By Mouth 3 times a day as needed Anxiety. isosorbide mononitrate (isosorbide mononitrate 30 mg ER Tab) 1 Tablets By Mouth once a day (in the morning). lisinopril (lisinopril 5 mg Tab) 1 Tablets By Mouth every day. metoprolol (metoprolol 25 mg ER Tab) 0.5 Tablets By Mouth every day. psyllium (Metamucil) By Mouth every day. rosuvastatin 40 Milligram By Mouth every day. tamsulosin (Flomax 0.4 mg Cap) 1 Capsules By Mouth every day. Refills: 3. varenicline (varenicline 1 mg oral tablet) 1 Tablets By Mouth 2 times a day. PATIENT EDUCATION INFORMATION Instructions: Medication Leaflets: Normal [facility] Patient Education - Texton 1 Patient Education - Text Normal [facility] XR Chest 2 Viewson 3 XR Chest 2 Views Exam Date/Time: 02/17/2023 14:27 EDT Reason for Exam: PAT Report IMPRESSION: NO EVIDENCE OF ACTIVE CHEST DISEASE. CLINICAL HISTORY: PAT. COMMENT: The heart is normal in size. The mediastinum is unremarkable. The lungs appear clear. No infiltration nor pleural effusion is evident. Ordering Provider: De La Vega Ahmad FINAL REPORT Dictated: 02/18/2023 8:01 am Roldan Ferrari M.D. Signed (Electronic Signature): 02/18/2023 8:01 am Signed by: Roldan Ferrari M.D. Transcribed by: DUSTIN Technologist: HAI Technical Comments Radiation Dose: Ka,r in mGy = na DAP = na Normal [facility] Auto Diffon 02-17-2023 Basophils/100 WBC (Bld) 1.0 % Normal 0.0-2.0 [facility] Comment on above: Order Comment: Order Added by Discern Expert. Performed By: #### 2 [id number], [id number] #### [facility] [address] [place] [address] Basophils/Leukocy keegan Auto (Bld) [Pure # fraction] 0.1 E9/L Normal 0.0-0.2 [facility] Comment on above: Order Comment: Order Added by Discern Expert. Performed By: #### 2 [id number], [id number] #### [facility] [address] [place] [address] Eosinophils/100 WBC (Bld) 1.4 % Normal 0.0-8.0 [facility] Comment on above: Order Comment: Order Added by Discern Expert. Performed By: #### 2 [id number], [id number] #### [facility] [address] [place] [address] Eosinophils/Leuko cytes Auto (Bld) [Pure # fraction] 0.1 E9/L Normal 0.0-0.5 [facility] Comment on above: Order Comment: Order Added by Discern Expert. Performed By: #### 2 [id number], [id number] #### [facility] [address] [place] [address] Lymphocytes/100 WBC (Bld) 25.0 % Normal 14.0-50.0 [facility] Comment on above: Order Comment: Order Added by Discern Expert. Performed By: #### 2 [id number], [id number] #### [facility] [address] [place] [address] Lymphocytes/Leuko cytes Auto (Bld) [Pure # fraction] 1.8 E9/L Normal 1.0-4.0 [facility] Comment on above: Order Comment: Order Added by Discern Expert. Performed By: #### 2 [id number], [id number] #### [facility] [address] [place] [address] Monocytes/100 WBC (Bld) 5.5 % Normal 4.0-14.0 [facility] Comment on above: Order Comment: Order Added by Discern Expert. Performed By: #### 2 [id number], [id number] #### [facility] [address] [place] [address] Monocytes/Leukocy keegan Auto (Bld) [Pure # fraction] 0.4 E9/L Normal 0.2-1.0 [facility] Comment on above: Order Comment: Order Added by Discern Expert. Performed By: #### 2 [id number], [id number] #### [facility] [address] [place] [address] Neutrophils/100 WBC (Bld) 67.1 % Normal 36.0-75.0 [facility] Comment on above: Order Comment: Order Added by Discern Expert. Performed By: #### 2 [id number], [id number] #### [facility] [address] [place] [address] Neutrophils/Leuko cytes Auto (Bld) [Pure # fraction] 4.8 E9/L Normal 2.0-7.5 [facility] Comment on above: Order Comment: Order Added by Discern Expert. Performed By: #### 2 087050, [id number] #### [facility] [address] [place] [address] BUNon 02-17-2023 Urea nitrogen [Mass/Vol] 16 mg/dL Normal 5-21 [facility] Comment on above: Performed By: #### 2 342135, [id number] #### [facility] [address] [place] [address] CBC w/ Auto Diffon Erythrocyte distribution width (RBC) [Ratio] 13.4 % Normal 10.9-14.2 [facility] Comment on above: Performed By: #### 2 055389, [id number] #### [facility] [address] [place] [address] Hematocrit (Bld) [Volume fraction] 39.3 % Normal 37.7-49.0 [facility] Comment on above: Performed By: #### 2 297619, [id number] #### [facility] [address] [place] [address] Hemoglobin (Bld) [Mass/Vol] 13.7 g/dL Normal 13.5-17.5 [facility] Comment on above: Performed By: #### 2 393209, [id number] #### [facility] [address] [place] [address] MCH (RBC) [Entitic mass] 29.2 pg Normal 27.0-34.0 [facility] Comment on above: Performed By: #### 2 470359, [id number] #### [facility] [address] [place] [address] MCHC (RBC) [Mass/Vol] 34.7 g/dL Normal 31.4-36.0 [facility] Comment on above: Performed By: #### 2 286061, [id number] #### [facility] [address] [place] [address] MCV (RBC) [Entitic vol] 84.1 fL Normal 80.0-100.0 [facility] Comment on above: Performed By: #### 2 477427, [id number] #### [facility] [address] [place] [address] Platelet mean volume (Bld) [Entitic vol] 8.4 fL Normal 6.4-10.8 [facility] Comment on above: Performed By: #### 2 853018, [id number] #### [facility] [address] [place] [address] Platelets (Bld) [#/Vol] 257.0 E9/L Normal 150.0-500. 0 [facility] Comment on above: Performed By: #### 2 706833, [id number] #### [facility] [address] [place] [address] RBC (Bld) [#/Vol] 4.7 E12/L Normal 4.3-5.9 [facility] Comment on above: Performed By: #### 2 084562, [id number] #### [facility] [address] [place] [address] WBC corrected for nucl RBC Auto (Bld) [#/Vol] 7.2 E9/L Normal 4.0-11.0 [facility] Comment on above: Performed By: #### 2 256681, [id number] #### [facility] [address] [place] [address] CHEMISTRYOrdered By: SYSTEM SYSTEM on 02-17-2023 Anion gap [Moles/Vol] 10 mmol/L Normal 6 - 16 mEq/L [facility] Remisol Chloride [Moles/Vol] 112 mmol/L High 101 - 111 mmol/L [facility] Remisol CO2 [Moles/Vol] 24 mmol/L Normal 21 - 31 mmol/L [facility] Remisol Creatinine [Mass/Vol] 0.8 mg/dL Normal 0.5 - 1.3 mg/dL [facility] Remisol GFR/1.73 sq M.predicted among non-blacks MDRD (S/P/Bld) [Vol rate/Area] 96 mL/min/1.73 m2 Normal >=59mL/min /1.73 m2 [facility] Chem S Comment on above: Interpretive Data: C hronic kidney disease could be indicated at eGFR's of less than 60 mL/min/1.73m2. Kidney failure is indicated at less than 15 mL/min/1.73m2. Glucose [Mass/Vol] 129 mg/dL Normal 55 - 199 mg/dL [facility] Remisol Potassium [Moles/Vol] 3.9 mmol/L Normal 3.5 - 5.3 mmol/L [facility] Remisol Sodium [Moles/Vol] 142 mmol/L Normal 135 - 145 mmol/L [facility] Remisol Urea nitrogen [Mass/Vol] 16 mg/dL Normal 5 - 21 mg/dL [facility] Remisol Consent for Treatmenton 02-08 Consent for Treatment [id number] Normal [facility] Creatinineon 02-17-2023 Creatinine [Mass/Vol] 0.8 mg/dL Normal 0.5-1.3 [facility] Comment on above: Performed By: #### 2 [id number], [id number] #### [facility] [address] [place] [address] Glucoseon 02-17-2023 Glucose [Mass/Vol] 129 mg/dL Normal 55-199 [facility] Comment on above: Performed By: #### 2 824339, [id number] #### [facility] [address] [place] [address] Lyteson 02-17-2023 Anion gap [Moles/Vol] 10 mmol/L Normal 6-16 [facility] Comment on above: Performed By: #### 2 750380, [id number] #### [facility] [address] [place] [address] Chloride [Moles/Vol] 112 mmol/L High 101-111 [facility] Comment on above: Performed By: #### 2 369847, [id number] #### [facility] [address] [place] [address] CO2 [Moles/Vol] 24 mmol/L Normal 21-31 [facility] Comment on above: Performed By: #### 2 531860, [id number] #### [facility] [address] [place] [address] Potassium [Moles/Vol] 3.9 mmol/L Normal 3.5-5.3 [facility] Comment on above: Performed By: #### 2 193978, [id number] #### [facility] [address] [place] [address] Sodium [Moles/Vol] 142 mmol/L Normal 135-145 [facility] Comment on above: Performed By: #### 2 310368, [id number] #### [facility] [address] [place] [address] eGFRon 02-17-2023 GFR/1.73 sq M.predicted among non-blacks MDRD (S/P/Bld) [Vol rate/Area] 96 mL/min/1.73 m2 Normal >=59 [facility] Comment on above: Order Comment: Order added by Discern Expert. Result Comment: [employer] blanka kidney disease could be indicated at eGFR's of less than 60 mL/min/1.73m2. Kidney failure is indicated at less than 15 mL/min/1.73m2. Performed By: #### 2 950512, [id number] #### [facility] [address] [place] [address] Office Visiton 01-30-2023 Follow-up visit [id number] Ronnell Peres 1955 M Date Provider Department Center 01/30/2023 3848-[facility] Family History Problem Relation Age of Onset Heart attack Mother Family Status - Relation Status Age at Mother Level of Service:05144 OR OFFICE/OUTPATIENT ESTABLISHED MOD MDM 30-39 MIN Normal [facility] CBC with Auto Differentialon 01-25-2023 Basophils (Bld) [#/Vol] 0.03 10*3/uL [facility] Basophils/100 WBC (Bld) 0 % 0 - 2 % [facility] Eosinophils (Bld) [#/Vol] 0.04 10*3/uL [email or web address] Eosinophils/100 WBC (Bld) 1 % 1 - 4 % [facility] Erythrocyte distribution width (RBC) [Ratio] 12.6 % 11.8 - 14.4 % [facility] Hematocrit (Bld) [Volume fraction] 43.7 % 40.7 - 50.3 % [facility] Hemoglobin (Bld) [Mass/Vol] 15.2 g/dL 13.0 - 17.0 g/dL [facility] Immature granulocytes (Bld) [#/Vol] [facility] Immature granulocytes/100 WBC (Bld) 0 % 0 [facility] [facility] Interpretation and review of laboratory results Abnormal [facility] Lymphocytes/100 WBC (Bld) 21 % Low 24 - 43 % [facility] Lymphocytes/100 WBC (Bld) 1.64 % [facility] MCH (RBC) [Entitic mass] 29.2 pg 25.2 - 33.5 pg [facility] MCHC (RBC) [Mass/Vol] 34.8 g/dL 28.4 - 34.8 g/dL [facility] MCV (RBC) [Entitic vol] 83.9 fL 82.6 - 102.9 fL [facility] Monocytes/100 WBC (Bld) 6 % 3 - 12 % [facility] Monocytes/100 WBC (Bld) 0.50 % [facility] Neutrophils/100 WBC (Bld) 72 % High 36 - 65 % [facility] Nucleated RBC/100 WBC (Bld) [Ratio] 0.0 % 0.0 per 100 WBC [facility] Platelet mean volume (Bld) [Entitic vol] 9.7 fL 8.1 - 13.5 fL [facility] Platelets (Bld) [#/Vol] 276 10*3/uL [facility] RBC (Bld) [#/Vol] 5.21 10*6/uL 4.21 - 5.77 m/uL [facility] Segmented neutrophils/100 WBC (Bld) 5.71 % [facility] WBC other (Bld) [#/Vol] 7.9 [facility] CBC with Diffon 09-17-2023 Abs. Basophil 0.03 k/uL Normal 0.00-0.20 [facility] Comment on above: Performed By: #### C DP, PT, CP, TROPI #### [address] [place] [address] Elementary Education Teacher: Dustin Woods MD Abs.Imm.Granulocy te <0.03 Normal 0.00-0.30 [facility] Comment on above: Performed By: #### C DP, PT, CP, TROPI #### [address] [place], [facility]83 Elementary Education Teacher: Dustin Woods MD Abs.Neutrophil (Seg) 5.71 k/uL Normal 1.50-8.10 [facility] Comment on above: Performed By: #### C DP, PT, CP, TROPI #### [address] [place], [place] [address] Elementary Education Teacher: Dustin Woods MD Basophils/100 WBC (Bld) 0 % Normal 0-2 [facility] Comment on above: Performed By: #### C DP, PT, CP, TROPI #### [address] [place], [place] [address] Elementary Education Teacher: Dustin Woods MD Eosinophils (Bld) [#/Vol] 0.04 10*3/uL Normal 0.00-0.44 [facility] Comment on above: Performed By: #### C DP, PT, CP, TROPI #### [address] [place], [facility]83 Elementary Education Teacher: Dustin Woods MD Eosinophils/100 WBC (Bld) 1 % Normal 1-4 [facility] Comment on above: Performed By: #### C DP, PT, CP, TROPI #### [address] [place], [facility]83 Elementary Education Teacher: Dustin Woods MD Erythrocyte distribution width (RBC) [Ratio] 12.6 % Normal 11.8-14.4 [facility] Comment on above: Performed By: #### C DP, PT, CP, TROPI #### [address] [place], [facility]83 Elementary Education Teacher: Dustin Woods MD Hematocrit (Bld) [Volume fraction] 43.7 % Normal 40.7-50.3 [facility] Comment on above: Performed By: #### C DP, PT, CP, TROPI #### [address] [place], [facility]83 Elementary Education Teacher: Dustin Woods MD Hemoglobin (Bld) [Mass/Vol] 15.2 g/dL Normal 13.0-17.0 [facility] Comment on above: Performed By: #### C DP, PT, CP, TROPI #### [address] [place], [place] [address] Elementary Education Teacher: Dustin Woods MD Immature granulocytes/100 WBC (Bld) 0 % Normal 0 [facility] Comment on above: Performed By: #### C DP, PT, CP, TROPI #### [address] [place], [facility]83 Elementary Education Teacher: Dustin Woods MD Lymphocytes (Bld) [#/Vol] 1.64 10*3/uL Normal 1.10-3.70 [facility] Comment on above: Performed By: #### C DP, PT, CP, TROPI #### [address] [place], [facility]83 Elementary Education Teacher: Dustin Woods MD Lymphocytes/100 WBC (Bld) 21 % Low 24-43 [facility] Comment on above: Performed By: #### C DP, PT, CP, TROPI #### [address] [place], [facility]83 Elementary Education Teacher: Dustin Woods MD MCH (RBC) [Entitic mass] 29.2 pg Normal 25.2-33.5 [facility] Comment on above: Performed By: #### C DP, PT, CP, TROPI #### [facility] [address] [place] [address] Elementary Education Teacher: Dustin Woods MD MCHC (RBC) [Mass/Vol] 34.8 g/dL Normal 28.4-34.8 [facility] Comment on above: Performed By: #### C DP, PT, CP, TROPI #### [facility] [address] [place], [place] [address] Elementary Education Teacher: Dustin Woods MD MCV (RBC) [Entitic vol] 83.9 fL Normal 82.6-102.9 [facility] Comment on above: Performed By: #### C DP, PT, CP, TROPI #### [address] [place], [place] [address] Elementary Education Teacher: Dustin Woods MD Monocytes (Bld) [#/Vol] 0.50 10*3/uL Normal 0.10-1.20 [facility] Comment on above: Performed By: #### C DP, PT, CP, TROPI #### [address] [place], [facility]83 Elementary Education Teacher: Dustin Woods MD Monocytes/100 WBC (Bld) 6 % Normal 3-12 [facility] Comment on above: Performed By: #### C DP, PT, CP, TROPI #### [facility] [address] [place], [facility]83 Elementary Education Teacher: Dustin Woods MD Neutrophil (Seg) 72 % High 36-65 [facility] Comment on above: Performed By: #### C DP, PT, CP, TROPI #### [facility] [address] [place] [address] Dr. [place], [facility]83 Elementary Education Teacher: Dustin Woods MD NRBC Automated 0.0 per 100 WBC Normal 0.0 [facility] Comment on above: Performed By: #### C DP, PT, CP, TROPI #### [facility] [address] [place], [place] [id number] Elementary Education Teacher: Dustin Woods MD Platelet mean volume (Bld) [Entitic vol] 9.7 fL Normal 8.1-13.5 [facility] Comment on above: Performed By: #### C DP, PT, CP, TROPI #### [facility] [address] [place], [place] [id number] Elementary Education Teacher: Dustin Woods MD Platelets (Bld) [#/Vol] 276 10*3/uL Normal 138-453 [facility] Comment on above: Performed By: #### C DP, PT, CP, TROPI #### [address] [place], [place] [address] Elementary Education Teacher: Dustin Woods MD RBC (Bld) [#/Vol] 5.21 10*6/uL Normal 4.21-5.77 [facility] Comment on above: Performed By: #### C DP, PT, CP, TROPI #### [address] [place], [facility]83 Elementary Education Teacher: Dustin Woods MD WBC (Bld) [#/Vol] 7.9 10*3/uL Normal 3.5-11.3 [facility] Comment on above: Performed By: #### C DP, PT, CP, TROPI #### [facility] [address] [place], [facility]83 Elementary Education Teacher: Dustin Woods MD [facility] Albumin [Mass/Vol] 5.0 g/dL 3.5 - 5.2 g/dL [facility] Albumin/Globulin [Mass ratio] 1.9 {ratio} 1.0 - 2.5 [facility] ALP [Catalytic activity/Vol] 74 U/L 40 - 129 U/L [facility] ALT [Catalytic activity/Vol] 31 U/L 5 - 41 U/L [facility] Anion gap [Moles/Vol] 11 mmol/L 9 - 17 mmol/L [facility] AST [Catalytic activity/Vol] 26 U/L NINF - 40 U/L [facility] Bilirubin [Mass/Vol] 0.5 mg/dL 0.3 - 1.2 mg/dL [facility] Calcium [Mass/Vol] 9.7 mg/dL 8.6 - 10.4 mg/dL [facility] Chloride [Moles/Vol] 102 mmol/L 98 - 107 mmol/L [facility] CO2 [Moles/Vol] 23 mmol/L 20 - 31 mmol/L [facility] Creatinine [Mass/Vol] 0.6 mg/dL Low 0.7 - 1.2 mg/dL [facility] GFR/1.73 sq M.predicted MDRD (S/P/Bld) [Vol rate/Area] - PINF [facility] Comment on above: These results are not intended for use in patients <18 years of age. eGFR results are calculated without a race factor using the 2020 CKD-EPI equation. Careful clinical correlation is recommended, particularly when comparing to results calculated using previous equations. The CKD-EPI equation is less accurate in patients with extremes of muscle mass, extra-renal metabolism of creatine, excessive creatine ingestion, or following therapy that affects renal tubular secretion. Glucose [Mass/Vol] 108 mg/dL High 70 - 99 mg/dL [facility] Interpretation and review of laboratory results Abnormal [facility] Potassium [Moles/Vol] 4.0 mmol/L 3.7 - 5.3 mmol/L [facility] Protein [Mass/Vol] 7.7 g/dL 6.4 - 8.3 g/dL [facility] Sodium [Moles/Vol] 136 mmol/L 135 - 144 mmol/L [facility] Urea nitrogen [Mass/Vol] 14 mg/dL 8 - 23 mg/dL [facility] Urea nitrogen/Creatini ne [Mass ratio] 23 mg/mg High 9 - 20 [facility] Comp Metabolic Profon 2022 Albumin [Mass/Vol] 5.0 g/dL Normal 3.5-5.2 [facility] Comment on above: Performed By: #### C DP, PT, CP, TROPI #### [facility] [address] [place], [place] [id number] Elementary Education Teacher: Dustin Woods MD Albumin/Glob Ratio 1.9 Normal 1.0-2.5 [facility] Comment on above: Performed By: #### C DP, PT, CP, TROPI #### [facility] [address] [place], [place] [id number] Elementary Education Teacher: Dustin Woods MD Alkaline Phos 74 U/L Normal 40-129 [facility] Comment on above: Performed By: #### C DP, PT, CP, TROPI #### [facility] [address] [place] [address] Elementary Education Teacher: Dustin Woods MD ALT [Catalytic activity/Vol] 31 U/L Normal 5-41 [facility] Comment on above: Performed By: #### C DP, PT, CP, TROPI #### [facility] [address] [place] [address] Elementary Education Teacher: Dustin Woods MD Anion gap [Moles/Vol] 11 mmol/L Normal -17 [facility] Comment on above: Performed By: #### C DP, PT, CP, TROPI #### [facility] [address] [place] [address] Elementary Education Teacher: Dustin Woods MD AST [Catalytic activity/Vol] 26 U/L Normal <40 [facility] Comment on above: Performed By: #### C DP, PT, CP, TROPI #### [facility] [address] [place], [place] [id number] Elementary Education Teacher: Dustin Woods MD Bilirubin [Mass/Vol] 0.5 mg/dL Normal 0.3-1.2 [facility] Comment on above: Performed By: #### C DP, PT, CP, TROPI #### [facility] [address] [place], [place] [id number] Elementary Education Teacher: Dustin Woods MD BUN/CRE Ratio 23 High 9-20 [facility] Comment on above: Performed By: #### C DP, PT, CP, TROPI #### [facility] [address] [place] [address] Elementary Education Teacher: Dustin Woods MD Calcium [Mass/Vol] 9.7 mg/dL Normal 8.6-10.4 [facility] Comment on above: Performed By: #### C DP, PT, CP, TROPI #### [facility] [address] [place] [address] Elementary Education Teacher: Dustin Woods MD Chloride [Moles/Vol] 102 mmol/L Normal 98-107 [facility] Comment on above: Performed By: #### C DP, PT, CP, TROPI #### [address] [place] [address] Elementary Education Teacher: Dustin Woods MD CO2 [Moles/Vol] 23 mmol/L Normal 20-31 [facility] Comment on above: Performed By: #### C DP, PT, CP, TROPI #### [facility] [address] [place], [place] [id number] Elementary Education Teacher: Dustin Woods MD Creatinine [Mass/Vol] 0.6 mg/dL Low 0.7-1.2 [facility] Comment on above: Performed By: #### C DP, PT, CP, TROPI #### [facility] [address] [place], [place] [id number] Elementary Education Teacher: Dustin Woods MD GFR/1.73 sq M.predicted among non-blacks MDRD (S/P/Bld) [Vol rate/Area] mL/min/{1.73_m2} Normal >60 [facility] Comment on above: Result Comment: These results are not intended for use in patients <18 years of age. eGFR results are calculated without a race factor using the 2020 CKD-EPI equation. Careful clinical correlation is recommended, particularly when comparing to results calculated using previous equations. The CKD-EPI equation is less accurate in patients with extremes of muscle mass, extra-renal metabolism of creatine, excessive creatine ingestion, or following therapy that affects renal tubular secretion. Performed By: #### C DP, PT, CP, TROPI #### [address] [place] [address] Elementary Education Teacher: Dustin Woods MD Glucose [Mass/Vol] 108 mg/dL High 70-99 [facility] Comment on above: Performed By: #### C DP, PT, CP, TROPI #### [address] [place] [address] Elementary Education Teacher: Dustin Woods MD Potassium [Moles/Vol] 4.0 mmol/L Normal 3.7-5.3 [facility] Comment on above: Performed By: #### C DP, PT, CP, TROPI #### [address] [place], [place] [address] Elementary Education Teacher: Dustin Woods MD Protein [Mass/Vol] 7.7 g/dL Normal 6.4-8.3 [facility] Comment on above: Performed By: #### C DP, PT, CP, TROPI #### [facility] [address] [place] [address] [place] [address] Elementary Education Teacher: Dustin Woods MD Sodium [Moles/Vol] 136 mmol/L Normal 135-144 [facility] Comment on above: Performed By: #### C DP, PT, CP, TROPI #### [address] [place] [address] Elementary Education Teacher: Dustin Woods MD Urea nitrogen [Mass/Vol] 14 mg/dL Normal 8-23 [facility] Comment on above: Performed By: #### C DP, PT, CP, TROPI #### [facility] [address] [place], [place] [id number] Elementary Education Teacher: Dustin Woods MD PTon 01-25-2023 INR Coag (PPP) [Relative time] 0.9 {INR} Normal [facility] Comment on above: Result Comment: Therapeutic Range: Moderate Anticoagulant Intensity: INR = 2.0-3.0 High Anticoagulant Intensity: INR = 2.5-3.5 Performed By: #### C DP, PT, CP, TROPI #### [facility] [address] [place], [place] [id number] Elementary Education Teacher: Dustin Woods MD PT Coag (PPP) [Time] 12.5 s Normal 11.9-14.8 [facility] Comment on above: Performed By: #### C DP, PT, CP, TROPI #### [facility] [address] [place] [address] Dr. [place], [place] [id number] Elementary Education Teacher: Dustin Woods MD Protime-INRon 01-25-2023 INR Coag (PPP) [Relative time] 0.9 {INR} [facility] Comment on above: Therapeutic Range: Moderate Anticoagulant Intensity: INR = 2.0-3.0 High Anticoagulant Intensity: INR = 2.5-3.5 PT Coag (PPP) [Time] 12.5 s [facility] Troponinon 01-25-2023 Troponin, High Sens 11 ng/L Normal 0-22 [facility] Comment on above: Result Comment: High Sensitivity Troponin values cannot be compared with other Troponin methodologies. Performed By: #### C DP, PT, CP, TROPI #### [facility] [address] [place] [address] Elementary Education Teacher: Dustin Woods MD Troponin I.cardiac High sensitivity method [Mass/Vol] 11 ng/L 0 - 22 ng/L [facility] Comment on above: High Sensitivity Tro ponin values cannot be compared with other Troponin methodologies. [facility] XR CHEST PORTABLEon 01-26-20 XR CHEST PORTABLE EXAMINATION: ONE XRAY VIEW OF THE CHEST 01/25/2023 12:09 pm COMPARISON: None. HISTORY: ORDERING SYSTEM PROVIDED HISTORY: chest pain TECHNOLOGIST PROVIDED HISTORY: chest pain FINDINGS: HEART/MEDIASTINUM: The cardiomediastinal silhouette is within normal limits. PLEURA/LUNGS: There are no focal consolidations or pleural effusions. There is no appreciable pneumothorax. BONES/SOFT TISSUE: No acute abnormality. IMPRESSION: No radiographic evidence of acute pulmonary disease. Interpreted by: Jackson Nichole MD Signed by: Jackson Nichole MD 01/25/23 Final result Normal [facility] No radiographic evid ence of acute pulmonary disease. [facility] EXAMINATION: ONE XRAY VIEW OF THE CHEST 01/25/2023 12:09 pm COMPARISON: None. HISTORY: ORDERING SYSTEM PROVIDED HISTORY: chest pain TECHNOLOGIST PROVIDED HISTORY: chest pain FINDINGS: HEART/MEDIASTINUM: The cardiomediastinal silhouette is within normal limits. PLEURA/LUNGS: There are no focal consolidations or pleural effusions. There is no appreciable pneumothorax. BONES/SOFT TISSUE: No acute abnormality. [facility] Jackson Nichole MD - 01/25/2023 EXAMINATION: ONE XRAY VIEW OF THE CHEST 01/25/2023 12:09 pm COMPARISON: None. HISTORY: ORDERING SYSTEM PROVIDED HISTORY: chest pain TECHNOLOGIST PROVIDED HISTORY: chest pain FINDINGS: HEART/MEDIASTINUM: The cardiomediastinal silhouette is within normal limits. PLEURA/LUNGS: There are no focal consolidations or pleural effusions. There is no appreciable pneumothorax. BONES/SOFT TISSUE: No acute abnormality. IMPRESSION: No radiographic evidence of acute pulmonary disease. [facility] Radiology Study observation (narrative) [facility] XR CHEST PORTABLEOrdered By: Jackson Nichole on 01-25-2023 [facility] Work Phone: Office Visiton 12-31-2022 Follow-up visit [id number] Ronnell Peres 1955 Date Provider Department Center 12/31/2022 [id number]-HERIBERTOMIREYACAM SANDOVAL SAVANNAH Rooney [facility] Family History Problem Relation Age of Onset Heart attack Mother Family Status - Relation Status Age at Mother Level of Service:07635 OR OFFICE/OUTPATIENT ESTABLISHED MOD MDM 30-39 MIN [facility] 36on 12-19-2022 36 Let him know I am se nding script for amlodipine 5 mg daily, continue to monitor b/p and call if does not come down under 130/80 Thanks [facility] Orders Onlyon 12-19-2022 Orders Only [id number] Ronnell Peres Elizabeth 1955 M [facility] Department Ruth 12/19/2022 YASMINE HUNT SAVANNAH Janeth [facility] Family History Problem Relation Age of Onset Heart attack Mother Family Status - Relation Status Age at Mother [facility] Office Visiton 12-12-2022 Follow-up visit [id number] JaCainmellisa Johnson 1955 M [facility] Provider Department Ruth 12/12/2022 YASMINE HUNT SAVANNAH Donovan Family History Problem Relation Age of Onset Heart attack Mother Family Status - Relation Status Age at Mother Level of Service:[id number] OR OFFICE/OUTPATIENT ESTABLISHED LOW MDM 20-29 MIN [facility] General Surgery Office/Clini c Noteon 10-26-2022 General Surgery Office/Clinic Note Chief Complaint re-evaluate left inguinal hernia HPI Staff Presents to re-evaluate left inguinal hernia. Last evaluation completed 01/21/2022. Patient declined to proceed with repair at that time. Reports an increase in size and discomfort since last seen. Discomfort is primarily in the morning. After bowel movement, discomfort subsides. States most of the time hernia is easily reducible. He is due to follow up with cardiology. History of Present Illness 67 yo male with h/o CAD, s/p FL, on Plavix, COPD, htn, hyperlipidemia, bph, here for reevaluation of left inguinal hernia; last seen 01/2022; some increase in size, occasional discomfort, no skin changes, no N/V, no bowel changes; hernia is reducible; no abdominal operations; on Plavix and baby asa daily, no NSAIDS; smokes daily. Review of Systems PHQ Score Initial Depression Screen Score: 0 ROS - Provider Constitutional: no fever, no sweats, no weight loss. Eyes: no glasses, no blurred vision, no visual loss. ENMT: no dentures, no hoarseness, no swallowing difficulties, no hearing loss, no ear infection(s), no nose bleeds. Cardiovascular: normal blood pressure, no chest pain, regular heartbeat, no heart murmur. Respiratory: no shortness of breath, no cough, no asthma, no wheezing. Gastrointestinal: no nausea, no vomiting, no diarrhea, no constipation, no blood in stool, no change in bowel habits, mild abdominal pain, no hepatitis. Genitourinary: no kidney stones, no urine infection, no dysuria. Musculoskeletal: no pain, no weakness. Skin: no changing moles, no rash, no skin lumps. Neurologic: no seizures, no epilepsy, no headache. Psychiatric: no emotional or psychiatric problem. Heme/Lymph: no bleeding problems, no anemia, no blood clots, no transfusions. Allergy/Immunologic: no swollen lymph nodes/glands, no IV drug abuse. Other: Additional ROS info: Except as noted in the above Review of Systems and in the History of Present Illness, all other systems have been reviewed and are negative or noncontributory. Physical Exam Vitals & Measurements HR: 80(Peripheral) RR: 16 BP: 116/64 HT: 66 in HT: 168 cm WT: 64.9 kg WT: 142.78 lb BMI: 22.99 HEENT: normal conjunctiva, sclera clear, no scleral icterus, EOM intact, PERRLA, oral mucosa moist without lesions. Neck: trachea midline, no mass, symmetric, no thyromegaly or nodules, no adenopathy Respiratory: lungs CTA, respirations non labored. Cardiovascular: regular rate and rhythm, no murmur, no pedal edema or varicosities. Gastrointestinal: soft, non distended, no tenderness, no masses, reducible left inguinal hernia, no skin changes, diastasis recti no, no hepatosplenomegaly; normal bs Lymphatic: no cervical adenopathy, no inguinal adenopathy. Musculoskeletal: normal gait, digits and nails without infection, nodes, cyanosis, clubbing. Skin: no rashes, no lesions, no ulcers, no subcutaneous nodules, induration. Psychiatric/Neuro: oriented to time, place, person, judgement normal, affect appropriate for age, insight intact, no focal deficits. Tests: review of old records completed, Discussed surgical options, risks, and possible complications with patient. Assessment/Plan 1. Reducible left inguinal hernia (K40.90: Unilateral inguinal hernia, without obstruction or gangrene, not specified as recurrent) plan left inguinal herniorrhaphy with mesh insertion, informed consent obtained. patient has upcoming cardiology appointment, and will discuss surgical clearance at that time; he will contact us when cleared for surgery; call sooner if problems/questions. Ancef 2 gms IV prior to OR TAP block per anesthesia SCDs 2. 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 Follow-up No qualifying data available Problem List/Past Medical History Ongoing Alcohol abuse Anticoagulated Antiplatelet or antithrombotic long-term use BMI 22.0-22.9, adult BPH with urinary obstruction Chronic obstructive pulmonary disease GERD (gastroesophageal reflux disease) History of kidney stones History of myocardial infarction Hyperlipidemia Hypertension Kidney stone Reducible left inguinal hernia Smoker Tobacco use Ureteral stone with hydronephrosis Historical Anxiety Procedure/Surgical History Cystoscopic removal of ureteric stent (03/05/2017), Cystoscope (02/23/2017), Cystoscope (02/16/2017), Insertion of renal artery stent, Lithotripsy, Nasal cautery, Placement of stent in cardiac conduit. Medications aspirin 81 mg oral capsule, 81 mg= 1 cap(s), Oral, Daily Flomax 0.4 mg Cap, 0.4 mg= 1 cap(s), Oral, Daily, 3 refills isosorbide mononitrate 30 mg ER Tab, 30 mg= 1 tab(s), Oral, qAM lisinopril 5 mg Tab, 5 mg= 1 tab(s), Oral, Daily metoprolol 25 mg ER Tab, 12.5 mg= 0.5 tab(s), Oral, Daily Plavix 75 mg Tab, 75 mg= 1 tab(s), Oral, Daily rosuvastatin, 40 mg, Oral, Daily varenicline 1 mg o (more content not included)... Normal [facility] Comment on above: Result Comment: Elec tronically Signed By: LOW AVILA, Aaron Valerio\Date and Time Signed: 10/26/22 19:41 EDT Ambulatory Visit Summaryon 0 10-22-2022 Ambulatory Visit Summary RONNELL PERES :1955 Visit Date:10/22/2022 Ambulatory Visit Instructions Your Care Team Attending Physician - LOW AVILA, Aaron White Primary Care Physician - Ev AVILA, Dylan This Is Your Medications List Contact prescribing physician if questions or concerns aspirin (aspirin 81 mg oral capsule) clopidogrel (Plavix 75 mg Tab) isosorbide mononitrate (isosorbide mononitrate 30 mg ER Tab) lisinopril (lisinopril 5 mg Tab) metoprolol (metoprolol 25 mg ER Tab) rosuvastatin tamsulosin (Flomax 0.4 mg Cap) varenicline (varenicline 1 mg oral tablet) Procedures Performed Cystoscopic removal of ureteric stent (03/05/2017), Cystoscope (02/23/2017), Cystoscope (02/16/2017), Insertion of renal artery stent, Lithotripsy, Nasal cautery, Placement of stent in cardiac conduit. Discharge Vitals Heart Rate (Peripheral) 80 Respiratory Rate 16 Blood Pressure 116/64 Height 168 cm Height 66 in Weight 64.9 kg Weight 142.78 lb BMI 22.99 Medications What How Much When Instructions Unchanged aspirin (aspirin 81 mg oral capsule) 1 Capsules By Mouth Every day Contact prescribing physician if questions or concerns Unchanged clopidogrel (Plavix 75 mg Tab) 1 Tablets By Mouth Every day Contact prescribing physician if questions or concerns Unchanged isosorbide mononitrate (isosorbide mononitrate 30 mg ER Tab) 1 Tablets By Mouth Once a day (in the morning) Contact prescribing physician if questions or concerns Unchanged lisinopril (lisinopril 5 mg Tab) 1 Tablets By Mouth Every day Contact prescribing physician if questions or concerns Unchanged metoprolol (metoprolol 25 mg ER Tab) 0.5 Tablets By Mouth Every day Contact prescribing physician if questions or concerns Unchanged rosuvastatin 40 Milligram By Mouth Every day Contact prescribing physician if questions or concerns Unchanged tamsulosin (Flomax 0.4 mg Cap) 1 Capsules By Mouth Every day Contact prescribing physician if questions or concerns Unchanged varenicline (varenicline 1 mg oral tablet) 1 Tablets By Mouth 2 times a day Contact prescribing physician if questions or concerns Allergies No Known Allergies No Known Medication Allergies Problems Ongoing - Any problem that you are currently receiving treatment for. Alcohol abuse Anticoagulated Antiplatelet or antithrombotic long-term use BMI 22.0-22.9, adult BPH with urinary obstruction Chronic obstructive pulmonary disease GERD (gastroesophageal reflux disease) History of kidney stones History of myocardial infarction Hyperlipidemia Hypertension Kidney stone Reducible left inguinal hernia Smoker Tobacco use Ureteral stone with hydronephrosis Historical - Any problem that you are no longer receiving treatment for. Anxiety Normal [facility] ECHOCARDIO M/2D COMPLETEon 0 12-18-2021 ECHOCARDIO M/2D COMPLETE Patient: RONNELL PERES Exam Date: 12/18/2021 : 1955 Gender:M Ordering : CAM FORREST Admission #: [id number] Family : DR DYLAN ZAIDI . Order #: [id number] CLICK HERE TO VIEW EXAM ECHOCARDIOGRAM REPORT PROCEDURE: CARDIO PULMONARY ECHOCARDIO M/2D COMP INDICATIONS: Dyspnea on exertion, COPD, H/O STEMI AND Stent (2019) COMPARISON: None. DESCRIPTION: COMPLETE ECHOCARDIOGRAM Real-time transthoracic echocardiography with 2D, M-mode, spectral and color flow Doppler performed. QUALITY: Technical quality was limited because of lung artifact. 66 138# 126/78 HR 88 LEFT VENTRICLE: Normal chamber size. Proximal septal hypertrophy (sigmoid septum). Global left ventricular systolic function is normal. No regional wall motion abnormalities. LV EF: Visual estimation of left ventricular ejection fraction is 60%. DIASTOLIC: Normal diastolic function. ATRIAL SEPTUM: LEFT ATRIUM: Normal chamber size. RIGHT ATRIUM: Normal chamber size. RIGHT VENTRICLE: Normal chamber size. Normal right ventricular systolic function. TRICUSPID VALVE: Normal mobility and thickness. No stenosis with trivial regurgitation. Unable to calculate right sided pressures due to lack of tricuspid regurgitation. MITRAL VALVE: Normal mobility and thickness. No evidence of mitral valve stenosis. No mitral regurgitation. AORTIC VALVE: Normal trileaflet appearance. No evidence of aortic valve stenosis. Mild focal sclerosis of the aortic valve. No aortic regurgitation. AORTIC ROOT: Normal diameter and appearance. PULMONIC VALVE: Normal thickness and mobility. No stenosis. Trivial regurgitation. PERICARDIUM: No evidence of pericardial effusion. IVC: Collapses with inspirations. IVC is normal in size. PLEURA: CONCLUSION: 1. Normal ventricular function. LVEF is 60%. 2. No significant valvular dysfunction. 3. No pericardial effusion. 4. Unable to assess right-sided pressures due to lack of measurable tricuspid regurgitation. Adult Echocardiography Procedure Report Left Ventricle Left Atrium Mitral Valve Right Ventricle Aorta Aortic Valve Peak Velocity (Antegrade Flow): 1.48 m/s AoV Area (Peak Richie): 1.86 cm2, 1.86 cm2 Peak Velocity(Antegrade Flow): 1.48 m/s Peak Gradient(Antegrade Flow): 8.74 mm[Hg] Tricuspid Valve Peak Velocity: 0.51 m/s Pulmonic Valve PV Max Richie (0.6 - 0.9 m per sec): 1.55 m/s PV Max Gradient: 9.56 mm[Hg] Right Atrium Dictated by: Michelle Pulliam M.D. on 12/18/2021 at 20:10 Approved by: Michelle Pulliam M.D. on 12/18/2021 at 20:12 Normal [facility] NM STRESS/REST MULTIon 12-16 NM STRESS/REST MULTI Patient: RONNELL PERES Exam Date: 12/16/2021 : 1955 Gender:M Ordering : CAM FORREST Admission #: [id number] Family : Order #: [id number] CLICK HERE TO VIEW EXAM RADIOLOGY REPORT PROCEDURE: RADIONUCLIDE IMAGING STRESS/REST MULTI COMPARISON: None. INDICATIONS: Precordial pain TECHNIQUE: Exam Description: Stress/Rest one day protocol gated SPECT Rest Imagin.5 mCi Tc-99m Cardiolite IV on 12/16/2021 Stress Imaging 30.7 mCi Tc-99m Cardiolite IV on 12/16/2021 Exercise Protocol: 0.4 mg Lexiscan given IV Heart Rate (bpm): Rest: 73 Max: 110 PMHR: 71 Blood Pressure: Rest: 158/86 Max: 164/94 Symptoms: Rest and peak stress ECG findings were normal and the exercise portion of the study was normal per attending physician Dr. Francisco . For more details please see separate cardiac stress test report. FINDINGS: QUALITY OF STUDY: Good. PERFUSION DEFECT: None. LOCATION: N/A SIZE: N/A. SEVERITY: N/A. TYPE: N/A. WALL MOTION: Normal. LV SIZE: Normal. 88 mL. TID / TCD: None; 1.1 LVEF: Normal. Calculated EF 56%. SUMMARY: Myocardial perfusion imaging study is NORMAL. CONCLUSION: 1. Normal myocardial perfusion scan 2. Normal exercise test Dictated by: Dustin Tucker MD on 12/17/2021 at 11:34 Approved by: Dustin Tucker MD on 12/17/2021 at 11:40 Normal [facility] XR ABDOMEN (KUB) (SINGLE AP VIEW)on 08-20-2021 Nonobstructive bowel gas pattern. No definite renal or ureteral stones. [facility] EXAMINATION: ONE SUPINE XRAY VIEW(S) OF THE ABDOMEN 08/20/2021 8:27 am COMPARISON: None. HISTORY: ORDERING SYSTEM PROVIDED HISTORY: Ureteral stone FINDINGS: Bowel gas pattern nonobstructed. Renal shadows partially obscured by bowel gas and fecal debris. No definite renal or ureteral stones. No acute osseous abnormality. [facility] Romario Fong DO - 08/20/2021 EXAMINATION: ONE SUPINE XRAY VIEW(S) OF THE ABDOMEN 08/20/2021 8:27 am COMPARISON: None. HISTORY: ORDERING SYSTEM PROVIDED HISTORY: Ureteral stone FINDINGS: Bowel gas pattern nonobstructed. Renal shadows partially obscured by bowel gas and fecal debris. No definite renal or ureteral stones. No acute osseous abnormality. IMPRESSION: Nonobstructive bowel gas pattern. No definite renal or ureteral stones. [facility] Phone: Radiology Study observation (narrative) [facility] Phone: XR ABDOMEN (KUB) (SINGLE AP VIEW)Ordered By: Romario Fong on 08-20-2021 [facility] Phone: Basic Metabolic Panelon 07-10 Anion gap [Moles/Vol] 10 mmol/L 9 - 17 mmol/L [facility] Calcium [Mass/Vol] 9.8 mg/dL 8.6 - 10.4 mg/dL [facility] Chloride [Moles/Vol] 104 mmol/L 98 - 107 mmol/L [facility] CO2 [Moles/Vol] 25 mmol/L 20 - 31 mmol/L [facility] Creatinine [Mass/Vol] 0.68 mg/dL Low 0.70 - 1.20 mg/dL [facility] GFR >60 >60 mL/min Klip[employer]in Blink (air taxi) GFR Non- >60 >60 mL/min [facility] Glucose [Mass/Vol] 95 mg/dL 70 - 99 mg/dL [facility] Interpretation and review of laboratory results Abnormal [facility] Potassium [Moles/Vol] 4.1 mmol/L 3.7 - 5.3 mmol/L [facility] Sodium [Moles/Vol] 139 mmol/L 135 - 144 mmol/L [facility] Urea nitrogen (BldV) [Mass/Vol] 14 mg/dL 8 - 23 mg/dL [facility] Urea nitrogen/Creatini ne (Bld) [Mass ratio] [address] [facility] [address] ABDOMEN PELVIS WO CONTRAS T Additional Contrast? Noneon 07-29-2021 1. Interval resoluti on of mild left hydronephrosis and renal pelvis dilatation. 2. Decreased stone load in the left kidney now showing only a punctate calculus in the lower pole several new calculi in the urinary bladder are presumed recently passed from the left kidney. 3. Redemonstration of left-sided bladder diverticulum containing a small calculus. [facility] EXAMINATION: CT OF THE ABDOMEN AND PELVIS WITHOUT CONTRAST 07/29/2021 11:16 am TECHNIQUE: CT of the abdomen and pelvis was performed without the administration of intravenous contrast. Multiplanar reformatted images are provided for review. Dose modulation, iterative reconstruction, and/or weight based adjustment of the mA/kV was utilized to reduce the radiation dose to as low as reasonably achievable. COMPARISON: 07/16/2021 HISTORY: ORDERING SYSTEM PROVIDED HISTORY: Renal colic TECHNOLOGIST PROVIDED HISTORY: FINDINGS: Lower Chest: The visualized heart and lungs show no acute abnormalities. Organs: Liver, spleen, pancreas, adrenal glands and gallbladder show no significant abnormalities. Unremarkable right kidney and ureter. Left kidney shows interval resolution of hydronephrosis and significant decreased stone load. There is now only a punctate calculus in the lower pole. Several renal pelvis calculi again noted. Dilatation of the left renal pelvis has also resolved. Several new sub 5 mm calculi noted dependently at the bladder base likely passed from the left kidney given interval decrease in stone load as noted above. Left bladder diverticulum containing a calculus is again noted. GI/Bowel: There is limited evaluation due to absence of oral contrast. Stomach grossly normal. Small bowel shows no obstruction or focal lesions. No evidence for appendicitis. Evaluation of the colon shows no significant abnormalities. Pelvis: Urinary bladder described above. Mild prostate gland enlargement. Pelvic phleboliths. No suspicious pelvic mass. Peritoneum/Retroperitoneum: No free intraperitoneal fluid. No significant lymphadenopathy. Mild atherosclerotic disease. Bones/Soft Tissues: Small fat containing left inguinal hernia unchanged. No acute bony abnormality. [facility] Jose Chino MD - 07/29/2021 EXAMINATION: CT OF THE ABDOMEN AND PELVIS WITHOUT CONTRAST 07/29/2021 11:16 am TECHNIQUE: CT of the abdomen and pelvis was performed without the administration of intravenous contrast. Multiplanar reformatted images are provided for review. Dose modulation, iterative reconstruction, and/or weight based adjustment of the mA/kV was utilized to reduce the radiation dose to as low as reasonably achievable. COMPARISON: 07/16/2021 HISTORY: ORDERING SYSTEM PROVIDED HISTORY: Renal colic TECHNOLOGIST PROVIDED HISTORY: FINDINGS: Lower Chest: The visualized heart and lungs show no acute abnormalities. Organs: Liver, spleen, pancreas, adrenal glands and gallbladder show no significant abnormalities. Unremarkable right kidney and ureter. Left kidney shows interval resolution of hydronephrosis and significant decreased stone load. There is now only a punctate calculus in the lower pole. Several renal pelvis calculi again noted. Dilatation of the left renal pelvis has also resolved. Several new sub 5 mm calculi noted dependently at the bladder base likely passed from the left kidney given interval decrease in stone load as noted above. Left bladder diverticulum containing a calculus is again noted. GI/Bowel: There is limited evaluation due to absence of oral contrast. Stomach grossly normal. Small bowel shows no obstruction or focal lesions. No evidence for appendicitis. Evaluation of the colon shows no significant abnormalities. Pelvis: Urinary bladder described above. Mild prostate gland enlargement. Pelvic phleboliths. No suspicious pelvic mass. Peritoneum/Retroperitoneum: No free intraperitoneal fluid. No significant lymphadenopathy. Mild atherosclerotic disease. Bones/Soft Tissues: Small fat containing left inguinal hernia unchanged. No acute bony abnormality. IMPRESSION: 1. Interval resolution of mild left hydronephrosis and renal pelvis dilatation. 2. Decreased stone load in the left kidney now showing only a punctate calculus in the lower pole several new calculi in the urinary bladder are presumed recently passed from the left kidney. 3. Redemonstration of left-sided bladder diverticulum containing a small calculus. [facility] Work Phone: Radiology Study observation (narrative) [facility] Phone: CT ABDOMEN PELVIS WO CONTRAS T Additional Contrast? NoneOrdered By: Jose Espinoza on 07-29-2021 [facility] Phone: Laboratory - Chemistry and C hemistry - challengeon 07-29-2021 GFR/1.73 sq M.predicted MDRD (S/P/Bld) [Vol rate/Area] [facility] Comment on above: Average GFR for 60-6 9 years old: 85 mL/min/1.73sq m Chronic Kidney Disease: <60 mL/min/1.73sq m Kidney failure: <15 mL/min/1.73sq m eGFR calculated using average adult body mass. Additional eGFR calculator available at: http://[email or web address]/multiple_crcl_2012.htm Stage 1: Some kidney damage normal GFR Stage 2: Mild kidney damage GFR 60-89 Stage 3: Moderate kidney damage GFR 30-59 Stage 4: Severe kidney damage GFR 15-29 Stage 5: Severe kidney damage GFR <15 ESRD - chronic treatment by dialysis or transplant CBC AUTO DIFFon 07-18-2021 BASO # 0.0 103/ul Normal 0.0-0.1 [facility] Comment on above: Performed By: #### B ERIC PAULSON #### [facility] [address] [address] [address] Wesley Ashraf Basophils/100 WBC (Bld) 0.6 % Normal 0.2-2.0 [facility] Comment on above: Performed By: #### B ERIC PAULSON #### [facility] [address] [address] [address] Wesley Ashraf EO # 0.2 103/ul Normal 0.0-0.7 [facility] Comment on above: Performed By: #### B ERIC PAULSON #### [facility] [address] [address] [address] Wesley Ashraf Eosinophils/100 WBC (Bld) 2.5 % Normal 0.9-7.0 [facility] Comment on above: Performed By: #### B KHURRAM, AMADODM #### [facility] [address] [place] [address] Dr. Wesley Ashraf Erythrocyte distribution width (RBC) [Ratio] 12.2 % Normal 11.0-15.0 [facility] Comment on above: Performed By: #### B KHURRAM, AMADODM #### [facility] [address] [place] [address] Dr. Wesley Ashraf Hematocrit (Bld) [Volume fraction] 41.1 % Critically low 42.0-54.0 [facility] Comment on above: Performed By: #### B AMADO PAULSONDM #### [facility] [address] [place] [address] Dr. Wesley Ashraf Hemoglobin (Bld) [Mass/Vol] 14.3 g/dL Normal 14.0-18.0 [facility] Comment on above: Performed By: #### B AMADO PAULSONDM #### [facility] [address] [place] [address] Dr. Wesley Ashraf IG # 0.02 10e3/ul Normal 0.00-0.03 [facility] Comment on above: Performed By: #### B ERIC PAULSON #### [facility] [address] [place] [address] Dr. Wesley Ashraf IG % 0.3 % Normal 0.0-0.5 [facility] Comment on above: Performed By: #### B AMADO PAULSONDM #### [facility] [address] [place] [address] Dr. Wesley Ashraf LYMPH # 1.4 103/ul Normal 1.2-3.8 [facility] Comment on above: Performed By: #### B KHURRAM, CMADM #### [facility] [address] [place] [address] Dr. Wesley Ashraf Lymphocytes/100 WBC (Bld) 21.5 % Normal 20.5-60.0 [facility] Comment on above: Performed By: #### B KHURRAM CMADM #### [facility] [address] [place] [address] Dr. Wesley Ashraf MANUAL DIFF REQ NO Normal [facility] Comment on above: Performed By: #### B KHURRAM, CMADM #### [facility] [address] [place] [address] Dr. Wesley Ashraf MCH (RBC) [Entitic mass] 28.9 pg Normal 25.9-34.0 [facility] Comment on above: Performed By: #### B KHURRAM, CMADM #### [facility] [address] [place] [address] Dr. Wesley Ashraf MCHC (RBC) [Mass/Vol] 34.8 g/dL Normal 29.9-35.2 [facility] Comment on above: Performed By: #### B KHURRAM, AMADODM #### [facility] [address] [place] [address] Dr. Wesley Ashraf MCV (RBC) [Entitic vol] 83.2 fL Normal 80.0-94.0 [facility] Comment on above: Performed By: #### B KHURRAM, CMADM #### [facility] [address] [place] [address] Dr. Wesley Ashraf MONO # 0.5 103/ul Normal 0.3-0.8 [facility] Comment on above: Performed By: #### B KHURRAM, AMADODM #### [facility] [address] [place] [address] Dr. Wesley Ashraf Monocytes/100 WBC (Bld) 7.8 % Normal 1.7-12.0 [facility] Comment on above: Performed By: #### B KHURRAM, CMADM #### [facility] [address] [place] [address] Dr. Wesley Ashraf NEUT # 4.2 103/ul Normal 1.4-6.5 [facility] Comment on above: Performed By: #### B KHURRAM, CMADM #### [facility] [address] [place] [address] Dr. Wesley Ashraf Neutrophils/100 WBC (Bld) 67.3 % Normal 43.0-75.0 [facility] Comment on above: Performed By: #### B KHURRAM, CMADM #### [facility] [address] [place] [address] Dr. Wesley Ashraf Platelet mean volume (Bld) [Entitic vol] 9.6 fL Normal 9.5-13.5 [facility] Comment on above: Performed By: #### B KHURRAM, ERIC #### [facility] [address] [place] [address] Dr. Wesley Ashraf PLT 374 103/ul Normal 150-450 [facility] Comment on above: Performed By: #### B KHURRAM, AMADODM #### [facility] [address] [place] [address] Dr. Wesley Ashraf RBC 4.94 106/ul Normal 4.70-6.10 [facility] Comment on above: Performed By: #### B KHURRAM, ERIC #### [facility] [address] [place] [address] Dr. Wesley Ashraf WBC 6.3 103/ul Normal 4.0-11.0 [facility] Comment on above: Performed By: #### B KHURRAM, ERIC #### [facility] [address] [place] [address] Dr. Wesley Ashraf PROF 14(COMP METB)on 022 Albumin [Mass/Vol] 3.7 g/dL Normal 3.5-5.0 [facility] Comment on above: Performed By: #### C MP #### [facility] [address] [place] [address] Dr. Wesley Ashraf Albumin/Globulin [Mass ratio] 0.9 {ratio} Normal [facility] Comment on above: Performed By: #### C MP #### [facility] [address] [place] [address] Dr. Wesley Ashraf ALP [Catalytic activity/Vol] 89 U/L Normal 38-126 [facility] Comment on above: Performed By: #### C MP #### [facility] [address] [place] [address] Dr. Wesley Ashraf ALT [Catalytic activity/Vol] 86 U/L Critically high 21-72 [facility] Comment on above: Performed By: #### C MP #### [facility] [address] [place], [place] [id number] Dr. Wesley Ashraf Anion gap [Moles/Vol] 14.7 mmol/L Normal [facility] Comment on above: Performed By: #### C MP #### [facility] [address] [address] [address] Wesley Ashraf AST [Catalytic activity/Vol] 40 U/L Normal 17-59 [facility] Comment on above: Performed By: #### C MP #### [facility] [address] [address] [address] Wesley Ashraf Bilirubin [Mass/Vol] 0.3 mg/dL Normal 0.2-1.3 [facility] Comment on above: Performed By: #### C MP #### [facility] [address] [place] [address] Dr. Wesley Ashraf Calcium [Mass/Vol] 9.5 mg/dL Normal 8.4-10.2 [facility] Comment on above: Performed By: #### C MP #### [facility] [address] [place] [address] Dr. Wesley Ashraf Chloride [Moles/Vol] 99 mmol/L Normal 98-107 [facility] Comment on above: Performed By: #### C MP #### [facility] [address] [place] [address] Dr. Wesley Ashraf CO2 [Moles/Vol] 21.8 mmol/L Critically low 22.0-30.0 [facility] Comment on above: Performed By: #### C MP #### [facility] [address] [place] [address] Dr. Wesley Ashraf Creatinine [Mass/Vol] 1.45 mg/dL Critically high 0.66-1.25 [facility] Comment on above: Performed By: #### C MP #### [facility] [address] [place] [address] Dr. Wesley Ashraf EGFR-AF CITIZ[place] 59 mL/min/1.73m2 Critically low >=60 [facility] Comment on above: Performed By: #### C MP #### [facility] [address] [place] [address] Dr. Wesley Ashraf EGFR-NON AF CITIZEN OF [place] 49 mL/min/1.73m2 Critically low >=60 [facility] Comment on above: Performed By: #### C MP #### [facility] [facility] [address] [address] [address] Wesley Ashraf Globulin (S) [Mass/Vol] 4.1 g/dL Normal [facility] Comment on above: Performed By: #### C MP #### [facility] [address] [address] [address] Wesley Asrhaf Glucose [Mass/Vol] 165 mg/dL Critically high 74-106 [facility] Comment on above: Performed By: #### C MP #### [facility] [address] [place] [address] Dr. Wesley Ashraf Potassium [Moles/Vol] 4.5 mmol/L Normal 3.4-5.0 [facility] Comment on above: Performed By: #### C MP #### [facility] [address] [place] [address] Dr. Wesley Ashraf Protein [Mass/Vol] 7.8 g/dL Normal 6.1-8.2 [facility] Comment on above: Performed By: #### C MP #### [facility] [address] [place] [address] Dr. Wesley Ashraf Sodium [Moles/Vol] 131 mmol/L Critically low 137-145 [facility] Comment on above: Performed By: #### C MP #### [facility] [address] [place] [address] Dr. Wesley Ashraf Urea nitrogen [Mass/Vol] 33.0 mg/dL Critically high 9.0-20.0 [facility] Comment on above: Performed By: #### C MP #### [facility] [address] [place] [address] Dr. Wesley Ashraf Urea nitrogen/Creatini ne [Mass ratio] 22.8 mg/mg Normal [facility] Comment on above: Performed By: #### C MP #### [facility] [address] [place] [address] Dr. Wesley Ashraf PROTIMEon 07-18-2021 INR Coag (PPP) [Relative time] 1.01 {INR} Normal [facility] Comment on above: Performed By: #### C BC #### [facility] [address] [place] [address] Dr. Wesley Ashraf INR GUIDELINES SEE BELOW Normal [facility] Comment on above: Result Comment: LILI RED INR: 2.0 - 3.0 CONDITIONS NOT LISTED BELOW 2.5 - 3.5 FOR PROSTHETIC HEART VALVE REPLACEMENT 2.5 - 3.5 RECURRENT THROMBOSIS Performed By: #### C BC #### [facility] [address] [address] [address] Wesley Ashraf PT Coag (PPP) [Time] 10.9 s Normal 9.0-11.6 [facility] Comment on above: Performed By: #### C BC #### [facility] [address] [place] [address] Dr. Wesley Ashraf PTTon 07-18-2021 aPTT Coag (Bld) [Time] 28.9 s Normal 22.3-36.2 [facility] Comment on above: Performed By: #### B MP, CMADM #### [facility] [address] [address] [address] Wesley Ashraf Basic Metabolic Panelon Anion gap [Moles/Vol] 16 mmol/L 9 - 17 mmol/L [facility] Calcium [Mass/Vol] 10.1 mg/dL 8.6 - 10.4 mg/dL [facility] Chloride [Moles/Vol] 98 mmol/L 98 - 107 mmol/L [facility] CO2 [Moles/Vol] 19 mmol/L Low 20 - 31 mmol/L [facility] Creatinine [Mass/Vol] 1.18 mg/dL 0.70 - 1.20 mg/dL [facility] GFR >60 >60 mL/min [facility] GFR Non- >60 >60 mL/min [facility] Glucose [Mass/Vol] 102 mg/dL High 70 - 99 mg/dL [facility] Interpretation and review of laboratory results Abnormal [facility] Potassium [Moles/Vol] 4.6 mmol/L 3.7 - 5.3 mmol/L [facility] Sodium [Moles/Vol] 133 mmol/L Low 135 - 144 mmol/L [facility] Urea nitrogen (BldV) [Mass/Vol] 22 mg/dL 8 - 23 mg/dL [facility] Urea nitrogen/Creatini ne (Bld) [Mass ratio] 19 [facility] CBC with Auto Differentialon 07-16-2021 Absolute Eos # 0.06 [facility] th Absolute Immature Granulocyte <0.03 [facility] Absolute Lymph # 1.48 [facility] alth Absolute [place] [facility] Basophils (Bld) [#/Vol] 0.03 10*3/uL [facility] Basophils/100 WBC (Bld) 1 % 0 - 2 % [facility] Eosinophils/100 WBC (Bld) 1 % 1 - 4 % [facility] Hematocrit (Bld) [Volume fraction] 43.4 % 40.7 - 50.3 % [facility] Hemoglobin.gastro intestinal spec 1 Ql (Stl) 14.7 g/dL 13.0 - 17.0 g/dL [facility] Immature granulocytes/100 WBC (Bld) 0 % 0 [facility] Interpretation and review of laboratory results Abnormal [facility] Lymphocytes/100 WBC (Bld) 22 % Low 24 - 43 % [facility] MCH (RBC) [Entitic mass] 28.9 pg 25.2 - 33.5 pg [facility] MCHC (RBC) [Mass/Vol] 33.9 g/dL 28.4 - 34.8 g/dL [facility] MCV (RBC) [Entitic vol] 85.3 fL 82.6 - 102.9 fL [facility] Monocytes/100 WBC (Bld) 8 % 3 - 12 % [facility] NRBC Automated 0.0 0.0 per 100 WBC [facility] Platelet distribution width (Bld) [Ratio] 12.0 % 11.8 - 14.4 % [facility] Platelet mean volume (Bld) [Entitic vol] 9.5 fL 8.1 - 13.5 fL [facility] Platelets (Bld) [#/Vol] 376 10*3/uL [facility] RBC (Bld) [#/Vol] 5.09 10*6/uL 4.21 - 5.77 m/uL [facility] Segmented neutrophils/100 WBC (Bld) 68 % High 36 - 65 % [facility] Segs Absolute 4.55 [facility] h WBC (Bld) [#/Vol] 6.7 10*3/uL [facility] - Chemistry and C hemistry - challengeon 07-16-2021 GFR/1.73 sq M.predicted MDRD (S/P/Bld) [Vol rate/Area] [facility] Comment on above: Average GFR for 60-6 9 years old: 85 mL/min/1.73sq m Chronic Kidney Disease: <60 mL/min/1.73sq m Kidney failure: <15 mL/min/1.73sq m eGFR calculated using average adult body mass. Additional eGFR calculator available at: http://www.[employer]/multiple_crcl_2011.htm Stage 1: Some kidney damage normal GFR Stage 2: Mild kidney damage GFR 60-89 Stage 3: Moderate kidney damage GFR 30-59 Stage 4: Severe kidney damage GFR 15-29 Stage 5: Severe kidney damage GFR <15 ESRD - chronic treatment by dialysis or transplant Basic Metabolic Panel w/ Ref caren to MGon 07-11-2021 Anion gap [Moles/Vol] 11 mmol/L 9 - 17 mmol/L [facility] Calcium [Mass/Vol] 9.3 mg/dL 8.6 - 10.4 mg/dL [facility] Chloride [Moles/Vol] 104 mmol/L 98 - 107 mmol/L [facility] CO2 [Moles/Vol] 24 mmol/L 20 - 31 mmol/L [facility] Creatinine [Mass/Vol] 1.34 mg/dL High 0.70 - 1.20 mg/dL [facility] GFR >60 >60 mL/min [facility] GFR Non- 53 mL/min Low >60 [facility] Glucose [Mass/Vol] 112 mg/dL High 70 - 99 mg/dL [facility] Interpretation and review of laboratory results Abnormal [facility] Potassium [Moles/Vol] 4.2 mmol/L 3.7 - 5.3 mmol/L [facility] Sodium [Moles/Vol] 139 mmol/L 135 - 144 mmol/L [facility] Urea nitrogen (BldV) [Mass/Vol] 15 mg/dL 8 - 23 mg/dL [facility] Urea nitrogen/Creatini ne (Bld) [Mass ratio] 11 [facility] CBC with Auto Differentialon 07-11-2021 Absolute Eos # 0.10 [facility] th Absolute Immature Granulocyte <0.03 [facility] Absolute Lymph # 0.98 Low [facility] alth Absolute [place] # 0.78 [facility] Basophils (Bld) [#/Vol] 0.03 10*3/uL [facility] Basophils/100 WBC (Bld) 0 % 0 - 2 % [facility] Eosinophils/100 WBC (Bld) 1 % 1 - 4 % [facility] Hematocrit (Bld) [Volume fraction] 39.3 % Low 40.7 - 50.3 % [facility] Hemoglobin.gastro intestinal spec 1 Ql (Stl) 13.0 g/dL 13.0 - 17.0 g/dL [facility] Immature granulocytes/100 WBC (Bld) 0 % 0 [facility] Interpretation and review of laboratory results Abnormal [facility] Lymphocytes/100 WBC (Bld) 8 % Low 24 - 43 % [facility] MCH (RBC) [Entitic mass] 29.1 pg 25.2 - 33.5 pg [facility] MCHC (RBC) [Mass/Vol] 33.1 g/dL 28.4 - 34.8 g/dL [facility] MCV (RBC) [Entitic vol] 88.1 fL 82.6 - 102.9 fL [facility] Monocytes/100 WBC (Bld) 6 % 3 - 12 % [facility] NRBC Automated 0.0 0.0 per 100 WBC [facility] Platelet distribution width (Bld) [Ratio] 12.3 % 11.8 - 14.4 % [facility] Platelet mean volume (Bld) [Entitic vol] 10.0 fL 8.1 - 13.5 fL [facility] Platelets (Bld) [#/Vol] 269 10*3/uL [facility] RBC (Bld) [#/Vol] 4.46 10*6/uL 4.21 - 5.77 m/uL [facility] Segmented neutrophils/100 WBC (Bld) 85 % High 36 - 65 % [facility] Segs Absolute 10.95 High [facility] h WBC (Bld) [#/Vol] 12.9 10*3/uL High [facility] - Chemistry and C hemistry - challengeon 07-11-2021 GFR/1.73 sq M.predicted MDRD (S/P/Bld) [Vol rate/Area] [facility] Comment on above: Average GFR for 60-6 9 years old: 85 mL/min/1.73sq m Chronic Kidney Disease: <60 mL/min/1.73sq m Kidney failure: <15 mL/min/1.73sq m eGFR calculated using average adult body mass. Additional eGFR calculator available at: http://www.[employer]/multiple_crcl_2012.htm Stage 1: Some kidney damage normal GFR Stage 2: Mild kidney damage GFR 60-89 Stage 3: Moderate kidney damage GFR 30-59 Stage 4: Severe kidney damage GFR 15-29 Stage 5: Severe kidney damage GFR <15 ESRD - chronic treatment by dialysis or transplant Microscopic Urinalysison - [facility] Bacteria, UA TRACE Abnormal None [facility] Epithelial Cells UA 0 TO 2 [facility] Interpretation and review of laboratory results Abnormal [facility] RBC, UA 20 TO 50 [facility] WBC, UA 0 TO 2 [facility] Urinalysis with Reflex to Cu ltureon 07-11-2021 Bilirubin Urine Negative NEGATIVE [facility] Color, UA Dark Yellow Abnormal Yellow [facility] Glucose, Ur Negative NEGATIVE [facility] Interpretation and review of laboratory results Abnormal [facility] Ketones Ql (U) Negative NEGATIVE [facility] Leukocyte esterase Test strip Ql (U) Negative NEGATIVE [facility] Nitrite, Urine Positive Abnormal NEGATIVE [facility] pH, UA 6.0 [facility] Protein, UA 1+ Abnormal NEGATIVE [facility] Specific [place], UA 1.015 [facility] Turbidity UA Clear Clear [facility] Urine Hgb 3+ Abnormal NEGATIVE [facility] Urobilinogen, Urine Normal Normal [facility] Basic Metabolic Panelon Anion gap [Moles/Vol] 9 mmol/L 9 - 17 mmol/L [facility] Calcium [Mass/Vol] 8.9 mg/dL 8.6 - 10.4 mg/dL [facility] Chloride [Moles/Vol] 104 mmol/L 98 - 107 mmol/L [facility] CO2 [Moles/Vol] 24 mmol/L 20 - 31 mmol/L [facility] Creatinine [Mass/Vol] 1.47 mg/dL High 0.70 - 1.20 mg/dL [facility] GFR 58 mL/min Low >60 [facility] GFR Non- 48 mL/min Low >60 [facility] Glucose [Mass/Vol] 95 mg/dL 70 - 99 mg/dL [facility] Interpretation and review of laboratory results Abnormal [facility] Potassium [Moles/Vol] 4.0 mmol/L 3.7 - 5.3 mmol/L [facility] Sodium [Moles/Vol] 137 mmol/L 135 - 144 mmol/L [facility] Urea nitrogen (BldV) [Mass/Vol] 21 mg/dL 8 - 23 mg/dL [facility] Urea nitrogen/Creatini ne (Bld) [Mass ratio] 14 [facility] CBCon 07-10-2021 Hematocrit (Bld) [Volume fraction] 36.0 % Low 40.7 - 50.3 % [facility] Hemoglobin.gastro intestinal spec 1 Ql (Stl) 12.5 g/dL Low 13.0 - 17.0 g/dL [facility] Interpretation and review of laboratory results Abnormal [facility] MCH (RBC) [Entitic mass] 29.9 pg 25.2 - 33.5 pg [facility] MCHC (RBC) [Mass/Vol] 34.7 g/dL 28.4 - 34.8 g/dL [facility] MCV (RBC) [Entitic vol] 86.1 fL 82.6 - 102.9 fL [facility] NRBC Automated 0.0 0.0 per 100 WBC [facility] Platelet distribution width (Bld) [Ratio] 12.4 % 11.8 - 14.4 % [facility] Platelet mean volume (Bld) [Entitic vol] 9.9 fL 8.1 - 13.5 fL [facility] Platelets (Bld) [#/Vol] 239 10*3/uL [facility] RBC (Bld) [#/Vol] 4.18 10*6/uL Low 4.21 - 5.77 m/uL [facility] WBC (Bld) [#/Vol] 9.0 10*3/uL [facility] - Chemistry and C hemistry - challengeon 07-10-2021 GFR/1.73 sq M.predicted MDRD (S/P/Bld) [Vol rate/Area] [facility] Comment on above: Average GFR for 60-6 9 years old: 85 mL/min/1.73sq m Chronic Kidney Disease: <60 mL/min/1.73sq m Kidney failure: <15 mL/min/1.73sq m eGFR calculated using average adult body mass. Additional eGFR calculator available at: http://www.[employer]/multiple_crcl_2012.htm Stage 1: Some kidney damage normal GFR Stage 2: Mild kidney damage GFR 60-89 Stage 3: Moderate kidney damage GFR 30-59 Stage 4: Severe kidney damage GFR 15-29 Stage 5: Severe kidney damage GFR <15 ESRD - chronic treatment by dialysis or transplant FLUORO FOR SURGICAL PROCEDUR ESon 07-09-2021 Radiology exam is co mplete. No Radiologist dictation. Please follow up with ordering provider. [facility] COVID-19on 07-06-2021 SARS-CoV-2 (COVID-19) RNA JOHN+probe Ql (Unsp spec) [facility] SARS-CoV-2 (COVID-19) RNA JOHN+probe Ql (Unsp spec) Not detected Not Detected [facility] Comment on above: The specimen is NEGATIVE for SARS-CoV-2, the novel coronavirus associated with COVID-19. A negative result does not rule out COVID-19. [employer] SARS-CoV-2 for use on the [employer] 6800/8800 [employer] is a real-time RT-PCR test intended for the qualitative detection of nucleic acids from SARS-CoV-2 in clinician-collected nasal, nasopharyngeal, and oropharyngeal swab specimens from individuals who meet COVID-19 clinical and/or epidemiological criteria. [employer] SARS-CoV-2 is for use only under Emergency Use Authorization (EUA) in laboratories certified under Clinical Laboratory Improvement Amendments of 1988 (CLIA), 42 U.S.C. 263a, that meet requirements to perform high or moderate complexity tests. An individual without symptoms of COVID-19 and who is not shedding SARS-CoV-2 virus would expect to have a negative (not detected) result in this assay. Fact sheet for Healthcare Providers: https://www.fda.gov/media/365298/download Fact sheet for Patients: https://www.fda.gov/media/835816/download METHODOLOGY: RT-PCR Source .NASOPHARYNGEAL SWAB [facility] XR KUB 1 VIEWon 06-25-2021 XR KUB 1 VIEW EXAMINATION: XR KUB 1 VIEW HISTORY: Kidney stone COMPARISON: 11/10/2009 FINDINGS: KIDNEY/URETER - RIGHT: No visible renal or ureteral calcifications. KIDNEY/URETER - LEFT: No visible renal or ureteral calcifications. PELVIS: No visible ureteral calcifications. Any visible calcifications favor phleboliths. BOWEL: No abnormal dilation or deviation. BONES: No acute abnormality. OTHER: Negative. No abnormal gaseous collections. IMPRESSION: No definite urinary tract calculi Electronically authenticated by: DUSTIN TUCKER Date: 2021-06-25 10:30 Normal [facility] CARDIAC NIKO 3-6on 2 CK [Catalytic activity/Vol] 85 U/L Normal 55-170 [facility] Comment on above: Performed By: #### C MREP #### [facility] [address] [place] [address] Dr. Wesley Ashraf CK.MB [Mass/Vol] 1.42 ng/mL Normal <=2.37 [facility] Comment on above: Performed By: #### C MREP #### [facility] [address] [place] [address] Dr. Wesley Ashraf HSTROP 10.1 pg/mL Normal 4.0-42.2 [facility] Comment on above: Result Comment: CUT- OFF POINTS HAVE BEEN ESTABLISHED BASED ON THE FOURTH UNIVERSAL DEFINITIONS OF MYOCARDIAL INFARCTION. THE UPPER REFERENCE LIMIT (URL) OF TROPONIN, DEFINED THE 99TH PERCENTILE OF cTnI DISTRIBUTION IN A REFERENCE POPULATION, HAS BEEN CONFIRMED THE DECISION THRESHOLD FOR [place] DIAGNOSIS. Performed By: #### C MREP #### [facility] [address] [place] [address] Dr. Wesley Ashraf CK [Catalytic activity/Vol] 101 U/L Normal 55-170 [facility] Comment on above: Performed By: #### C MREP #### [facility] [address] [place] [address] Dr. Wesley Ashraf CK.MB [Mass/Vol] 1.64 ng/mL Normal <=2.37 [facility] Comment on above: Performed By: #### C MREP #### [facility] [address] [place] [address] Dr. Wesley Ashraf HSTROP 9.3 pg/mL Normal 4.0-42.2 [facility] Comment on above: Result Comment: CUT- OFF POINTS HAVE BEEN ESTABLISHED BASED ON THE FOURTH UNIVERSAL DEFINITIONS OF MYOCARDIAL INFARCTION. THE UPPER REFERENCE LIMIT (URL) OF TROPONIN, DEFINED THE 99TH PERCENTILE OF cTnI DISTRIBUTION IN A REFERENCE POPULATION, HAS BEEN CONFIRMED THE DECISION THRESHOLD FOR FL DIAGNOSIS. Performed By: #### C MREP #### [facility] [address] [address] [address] ABD/PELVIS WO CONon 06-23 CT ABD/PELVIS WO CON EXAM: CT abdomen and Pelvis without contrast dated 06/22/2021 7:01 PM EST HISTORY: 66-year-old male with left flank pain. COMPARISON STUDY: Previous exam available dated 02/01/2017. The report is not available. TECHNIQUE: Multidetector spiral CT of the abdomen and pelvis was performed from lung bases to pubic symphysis. Imaging was performed without IV contrast. Axial, coronal, and sagittal multiplanar reformats were obtained from the axial data set by the technologist. Dose reduction techniques were achieved by using automated exposure control and/or adjustment of mA and/or kV according to patient size and/or use of iterative reconstruction technique. FINDINGS: Evaluation of solid organs is limited due to lack of intravenous contrast use. Lung Bases: No acute or significant lung base finding. There are scattered areas of dependent bibasilar atelectasis noted. Normal heart size. No pleural or pericardial effusion. Liver: The liver is normal in size. No focal lesions. Gallbladder and Biliary Tree: Very minimal sludge or small stones may be present in the gallbladder lumen however there are no CT features to suggest acute cholecystitis identified. There are nonspecific mildly prominent claudia hepatis lymph nodes again appreciated. Spleen: Unremarkable. Pancreas: The pancreas is grossly normal in appearance. Adrenal Glands: Unremarkable. Kidneys: There is no hydronephrosis identified on the right however there is mild right-sided perinephric stranding and edema. The left kidney demonstrates moderate hydroureteronephrosis with perinephric and periureteric fat stranding identified. There is a large stone noted on image 58 series 3 in the proximal third of the left ureter, which measures up to approximately 9 x 6 mm. No other definite ureteric stones are identified. Bladder: Slightly thickened or underdistended bladder. 15 mm diverticulum suggested on the left. Bowel: The stomach is grossly normal in appearance. Small bowel and colon are normal in caliber and distribution. The appendix is normal without findings of acute appendicitis appreciated. Within the left proximal aspect of the inguinal canal, there is bowel noted to herniate within an inguinal hernia defect on image 108 through 112 of series 3, which involves the descending and most proximal sigmoid colon however there are no features of obstruction and no significant surrounding inflammation is identified. This finding is also well visualized on image 25 series 5. No large volume of ascites. There is no definite pathologic lymphadenopathy. Abdominal Wall and Mesentery: Unremarkable. Vasculature: The visualized abdominal aorta is normal in size and caliber. Scattered moderate atherosclerotic plaque at the infrarenal abdominal aorta extending to the iliac vessels. Evaluation of abdominal and pelvic vessels is limited due to lack of intravenous contrast. Pelvic Organs: Calcifications are again noted in the prostate. The prostate slightly indents upon the bladder and measures up to approximately 4.9 cm. Small vessels are noted within the right inguinal canal. Minimal scrotal fluid is partially imaged. Musculoskeletal: No aggressive focal bony lesions, acute fractures, or dislocation. Degenerative change at L4-L5 with disc space height loss, endplate sclerosis, vacuum phenomenon, and probable neural foraminal and mild central canal narrowing. Consider nonemergent evaluation with MRI if indicated. Sacralization of L5 on the left is noted. IMPRESSION: Acute obstructive uropathy on the left secondary to a 9 mm x 6 mm stone in the proximal third of the ureter. Slight thickening of the bladder wall with a diverticulum noted on the left. Recommend laboratory correlation for infection and compromised renal function as well as urologic consultation. Left inguinal hernia defect containing a portion of the distal descending and proximal sigmoid colon without features of obstruction. Nonacute incidental findings as noted. Electronically authenticated by: LENIN JAY Date: 2021-06-22 22:30 Normal [facility] CULTURE URINEon 06-23-2021 CULTURE URINE Culture Observations : LIGHT GROWTH OF MIXED SKIN MEGGAN. NO POTENTIAL PATHOGENS SEEN. Normal [facility] Comment on above: Performed By: #### C BC #### [facility] [address] [place] [address] Dr. Wesley Ashraf ER URINE PROFILEon 2 Bilirubin Ql (U) Negative Normal NEGATIVE [facility] Comment on above: Performed By: #### U MICRO, ERUR #### [facility] [address] [address] [address] Wesley Ashraf Clarity (U) CLEAR Normal CLEAR [facility] Comment on above: Performed By: #### U MICRO, ERUR #### [facility] [address] [address] [address] Wesley Ashraf Color (U) LT. YELLOW Normal YELLOW [facility] Comment on above: Performed By: #### U MICRO, ERUR #### [facility] [address] [address] [address] Wesley Ashraf ERUAHD A micrscopic examina tion will be performed if indicated. Normal [facility] Comment on above: Performed By: #### U MICRO, ERUR #### [facility] [address] [place] [address] Dr. Wesley Ashraf Glucose Ql (U) Negative Normal NEGATIVE [facility] Comment on above: Performed By: #### U MICRO, ERUR #### [facility] [address] [address] [address] Wesley Ashraf Hemoglobin Ql (U) MODERATE Abnormal NEGATIVE [facility] Comment on above: Performed By: #### U MICRO, ERUR #### [facility] [address] [address] [address] Wesley Ashraf Ketones Ql (U) Negative Normal NEGATIVE [facility] Comment on above: Performed By: #### U MICRO, ERUR #### [facility] [address] [address] [address] Wesley Ashraf LEUKOCYTES Negative Normal NEGATIVE [facility] Comment on above: Performed By: #### U MICRO, ERUR #### [facility] [address] [address] [address] Wesley Ashraf Nitrite Ql (U) Negative Normal NEGATIVE [facility] Comment on above: Performed By: #### U MICRO, ERUR #### [facility] [address] [address] [address] Wesley Ashraf pH (U) 6.0 [pH] Normal 5-9 [facility] Comment on above: Performed By: #### U MICRO, ERUR #### [facility] [address] [place] [address] Dr. Wesley Ashraf SPEC GRAVITY 1.025 Normal 1.005-<=1. 025 [facility] Comment on above: Performed By: #### U MICRO, ERUR #### [facility] [address] [place] [address] Dr. Wesley Ashraf UA PROTEIN TRACE Normal NEGATIVE/ TRACE [facility] Comment on above: Performed By: #### U MICRO, ERUR #### [facility] [address] [place] [address] Dr. Wesley Ashraf UR MICRO IND INDICATED Normal [facility] Comment on above: Performed By: #### U MICRO, ERUR #### [facility] [address] [place] [address] Dr. Wesley Ashraf Urobilinogen Qn (U) 0.2 {Al'U}/dL Normal 0.2 - 1.0 [facility] Comment on above: Performed By: #### U MICRO, ERUR #### [facility] [address] [place] [address] Dr. Wesley Ashraf URINE MICROSCOPIC ONLYon BACTERIA SMALL Abnormal NONE SEEN [facility] Comment on above: Performed By: #### U MICRO, ERUR #### [facility] [address] [place] [address] Dr. Wesley Ashraf Bacteria identified Cx Nom (U) INDICATED Normal [facility] Comment on above: Performed By: #### U MICRO, ERUR #### [facility] [address] [place] [address] Dr. Wesley Ashraf CAST NONE SEEN Normal NONE SEEN [facility] Comment on above: Performed By: #### U MICRO, ERUR #### [facility] [address] [place] [address] Dr. Wesley Ashraf Crystals LM Nom (Urine sed) NONE SEEN Normal NONE SEEN [facility] Comment on above: Performed By: #### U MICRO, ERUR #### [facility] [address] [place] [address] Dr. Wesley Ashraf Epithelial cells LM Ql (Urine sed) RARE Normal NONE SEEN /RARE [facility] Comment on above: Performed By: #### U MICRO, ERUR #### [facility] [address] [place] [address] Dr. Wesley Ashraf MUCOUS NONE SEEN Normal NONE SEEN [facility] Comment on above: Performed By: #### U MICRO, ERUR #### [facility] [address] [place] [address] Dr. Wesley Ashraf RBC 50-75 Abnormal 0-2 [facility] Comment on above: Performed By: #### U MICRO, ERUR #### [facility] [address] [place] [address] Dr. Wesley Ashraf WBC 0-2 Abnormal NONE SEEN [facility] Comment on above: Performed By: #### U MICRO, ERUR #### [facility] [address] [place] [address] Dr. Wesley Ashraf BNPon 06-22-2021 Natriuretic peptide B (Bld) [Mass/Vol] 41.0 pg/mL Normal <=900.0 [facility] Comment on above: Performed By: #### C BC #### [facility] [address] [place] [address] Dr. Wesley Ashraf CBC AUTO DIFFon 06-22-2021 BASO # 0.0 103/ul Normal 0.0-0.1 [facility] Comment on above: Performed By: #### C BC #### [facility] [address] [place] [address] Dr. Weslye Ashraf Basophils/100 WBC (Bld) 0.2 % Normal 0.2-2.0 [facility] Comment on above: Performed By: #### C BC #### [facility] [address] [place] [address] Dr. Wesley Ashraf EO # 0.1 103/ul Normal 0.0-0.7 [facility] Comment on above: Performed By: #### C BC #### [facility] [address] [place] [address] Dr. Wesley Ashraf Eosinophils/100 WBC (Bld) 1.0 % Normal 0.9-7.0 [facility] Comment on above: Performed By: #### C BC #### [facility] [address] [place] [address] Dr. Wesley Ashraf Erythrocyte distribution width (RBC) [Ratio] 12.5 % Normal 11.0-15.0 [facility] Comment on above: Performed By: #### C BC #### [facility] [address] [place] [address] Dr. Wesley Ashraf Hematocrit (Bld) [Volume fraction] 41.3 % Critically low 42.0-54.0 [facility] Comment on above: Performed By: #### C BC #### [facility] [address] [place] [address] Dr. Wesley Ashraf Hemoglobin (Bld) [Mass/Vol] 14.4 g/dL Normal 14.0-18.0 [facility] Comment on above: Performed By: #### C BC #### [facility] [address] [place] [address] Dr. Wesley Ashraf IG # 0.04 10e3/ul Critically high 0.00-0.03 [facility] Comment on above: Performed By: #### C BC #### [facility] [address] [place] [address] Dr. Wesley Ashraf IG % 0.3 % Normal 0.0-0.5 [facility] Comment on above: Performed By: #### C BC #### [facility] [address] [place] [address] Dr. Wesley Ashraf LYMPH # 1.8 103/ul Normal 1.2-3.8 [facility] Comment on above: Performed By: #### C BC #### [facility] [address] [place] [address] Dr. Wesley Ashraf Lymphocytes/100 WBC (Bld) 15.1 % Critically low 20.5-60.0 [facility] Comment on above: Performed By: #### C BC #### [facility] [address] [place] [address] Dr. Wesley Ashraf MANUAL DIFF REQ NO Normal [facility] Comment on above: Performed By: #### C BC #### [facility] [address] [place] [address] Dr. Wesley Ashraf MCH (RBC) [Entitic mass] 29.7 pg Normal 25.9-34.0 [facility] Comment on above: Performed By: #### C BC #### [facility] [address] [place] [address] Dr. Wesley Ashraf MCHC (RBC) [Mass/Vol] 34.9 g/dL Normal 29.9-35.2 [facility] Comment on above: Performed By: #### C BC #### [facility] [address] [place] [address] Dr. Wesley Ashraf MCV (RBC) [Entitic vol] 85.2 fL Normal 80.0-94.0 [facility] Comment on above: Performed By: #### C BC #### [facility] [address] [place] [address] Dr. Wesley Ashraf MONO # 0.9 103/ul Critically high 0.3-0.8 [facility] Comment on above: Performed By: #### C BC #### [facility] [address] [place] [address] Dr. Wesley Ashraf Monocytes/100 WBC (Bld) 7.3 % Normal 1.7-12.0 [facility] Comment on above: Performed By: #### C BC #### [facility] [address] [place] [address] Dr. Wesley Ashraf NEUT # 9.1 103/ul Critically high 1.4-6.5 [facility] Comment on above: Performed By: #### C BC #### [facility] [address] [place] [address] Dr. Wesley Ashraf Neutrophils/100 WBC (Bld) 76.1 % Critically high 43.0-75.0 [facility] Comment on above: Performed By: #### C BC #### [facility] [address] [place] [address] Dr. Wesley Ashraf Platelet mean volume (Bld) [Entitic vol] 9.7 fL Normal 9.5-13.5 [facility] Comment on above: Performed By: #### C BC #### [facility] [address] [place] [address] Dr. Wesley Ashraf PLT 268 103/ul Normal 150-450 [facility] Comment on above: Performed By: #### C BC #### [facility] [address] [place] [address] Dr. Wesley Ashraf RBC 4.85 106/ul Normal 4.70-6.10 [facility] Comment on above: Performed By: #### C BC #### [facility] [address] [address] [address] Wesley Ashraf WBC 12.0 103/ul Critically high 4.0-11.0 [facility] Comment on above: Performed By: #### C BC #### [facility] [address] [place] [address] Dr. Wesley Ashraf D-DIMERon 06-22-2021 D-DIMER 0.33 mg/L FEU Normal 0.19-0.50 [facility] Comment on above: Performed By: #### C MREP #### [facility] [address] [place] [address] Dr. Wesley Ashraf D-DIMER COMMENTS SEE BELOW Normal [facility] Comment on above: Result Comment: Incr eases in D-Dimer concentration observed with thromboembolic events can be variable due to localization, size, and age of the thrombus. Therefore, a thromboembolic event cannot be diagnosed with certainty on the basis of the reference range. D-Dimers may also be elevated for a variety of disorders including: advanced age, , coronary disease, cancer, liver disease, infection, inflammation, hematoma, DIC, trauma, post-surgery, diabetes, thrombolytic or anticoagulant therapy, stress, and generalized hospitalization. Performed By: #### C MREP #### [facility] [address] [place] [address] Dr. Wesley Ashraf PROF CHEM 8 (BAS METB)on Anion gap [Moles/Vol] 15.0 mmol/L Normal [facility] Comment on above: Performed By: #### C BC #### [facility] [address] [address] [address] Wesley Ashraf Calcium [Mass/Vol] 9.3 mg/dL Normal 8.4-10.2 [facility] Comment on above: Performed By: #### C BC #### [facility] [address] [address] [address] Wesley Ashraf Chloride [Moles/Vol] 104 mmol/L Normal 98-107 [facility] Comment on above: Performed By: #### C BC #### [facility] [address] [address] [address] Wesley Ashraf CO2 [Moles/Vol] 24.9 mmol/L Normal 22.0-30.0 [facility] Comment on above: Performed By: #### C BC #### [facility] [address] [place] [address] Dr. Wesley Ashraf Creatinine [Mass/Vol] 0.95 mg/dL Normal 0.66-1.25 [facility] Comment on above: Performed By: #### C BC #### [facility] [address] [place] [address] Dr. Wesley Ashraf EGFR-AF CITIZEN OF [place] >60 Normal >=60 [facility] Comment on above: Performed By: #### C BC #### [facility] [address] [place] [address] Dr. Wesley Ashraf EGFR-NON AF CITIZEN OF [place] >60 Normal >=60 [facility] Comment on above: Performed By: #### C BC #### [facility] [address] [place] [address] Dr. Wesley Ashraf Glucose [Mass/Vol] 103 mg/dL Normal 74-106 [facility] Comment on above: Performed By: #### C BC #### [facility] [address] [place] [address] Dr. Wesley Ashraf Potassium [Moles/Vol] 3.9 mmol/L Normal 3.4-5.0 [facility] Comment on above: Performed By: #### C BC #### [facility] [address] [place] [address] Dr. Wesley Ashraf Sodium [Moles/Vol] 140 mmol/L Normal 137-145 [facility] Comment on above: Performed By: #### C BC #### [facility] [address] [place] [address] Dr. Wesley Ashraf Urea nitrogen [Mass/Vol] 21.0 mg/dL Critically high 9.0-20.0 [facility] Comment on above: Performed By: #### C BC #### [facility] [address] [place] [address] Dr. Wesley Ashraf Urea nitrogen/Creatini ne [Mass ratio] 22.1 mg/mg Normal [facility] Comment on above: Performed By: #### C BC #### [facility] [address] [place] [address] Dr. Wesley Ashraf PROTIMEon 06-22-2021 INR Coag (PPP) [Relative time] 0.95 {INR} Normal [facility] Comment on above: Performed By: #### C MREP #### [facility] [address] [place] [address] Dr. Wesley Ashraf INR GUIDELINES SEE BELOW Normal [facility] Comment on above: Result Comment: LILI RED INR: 2.0 - 3.0 CONDITIONS NOT LISTED BELOW 2.5 - 3.5 FOR PROSTHETIC HEART VALVE REPLACEMENT 2.5 - 3.5 RECURRENT THROMBOSIS Performed By: #### C MREP #### [facility] [address] [place] [address] Dr. Wesley Ashraf PT Coag (PPP) [Time] 10.3 s Normal 9.0-11.6 [facility] Comment on above: Performed By: #### C MREP #### [facility] [address] [place] [address] Dr. Wesley Ashraf PTTon 06-22-2021 aPTT Coag (Bld) [Time] 27.9 s Normal 22.3-36.2 [facility] Comment on above: Performed By: #### C MREP #### [facility] [address] [place] [address] Dr. Wesley Ashraf TROPONIN, HIGH SENSITIVITYon 06-22-2021 HSTROP 6.7 pg/mL Normal 4.0-42.2 [facility] Comment on above: Result Comment: CUT- OFF POINTS HAVE BEEN ESTABLISHED BASED ON THE FOURTH UNIVERSAL DEFINITIONS OF MYOCARDIAL INFARCTION. THE UPPER REFERENCE LIMIT (URL) OF TROPONIN, DEFINED THE 99TH PERCENTILE OF cTnI DISTRIBUTION IN A REFERENCE POPULATION, HAS BEEN CONFIRMED THE DECISION THRESHOLD FOR [place] DIAGNOSIS. Performed By: #### B ERIC PAULSON #### [facility] [address] [place] [address] Dr. Wesley Ashraf INSULINon 05-24-2021 Insulin 10.6 uIU/mL Normal 2.6-24.9 [facility] Comment on above: Performed By: #### I NSULIN #### [facility] [address] [place] [address] Dr. Wesley Ashraf PSA SCREENING LABCORPon 05-11 Prostate specific Ag [Mass/Vol] 1.0 ng/mL Normal 0.0-4.0 [facility] Comment on above: Result Comment: Roch dajuan ECLIA methodology. . According to the [employer], Serum PSA should decrease and remain at undetectable levels after radical prostatectomy. The AUA defines biochemical recurrence as an initial PSA value 0.2 ng/mL or greater followed by a subsequent confirmatory PSA value 0.2 ng/mL or greater. Values obtained with different assay methods or kits cannot be used interchangeably. Results cannot be interpreted as absolute evidence of the presence or absence of malignant disease. Performed By: #### ERIC Cannon MP #### [facility] [address] [place] [address] Dr. Wesley Ashraf AMYLASEon 05-23-2021 Amylase [Catalytic activity/Vol] 36 U/L Normal 31-110 [facility] Comment on above: Performed By: #### C MREP #### [facility] [address] [place] [address] Dr. Wesley Ashraf CBC AUTO DIFFon 05-23-2021 BASO # 0.0 103/ul Normal 0.0-0.1 [facility] Comment on above: Performed By: #### ERIC Cannon MP #### [facility] [address] [place] [address] Dr. Wesley Ashraf Basophils/100 WBC (Bld) 0.4 % Normal 0.2-2.0 [facility] Comment on above: Performed By: #### B ERIC PAULSON #### [facility] [address] [place] [address] Dr. Wesley Ashraf EO # 0.2 103/ul Normal 0.0-0.7 [facility] Comment on above: Performed By: #### B ERIC PAULSON #### [facility] [address] [place] [address] Dr. Wesley Ashraf Eosinophils/100 WBC (Bld) 2.3 % Normal 0.9-7.0 [facility] Comment on above: Performed By: #### B ERIC PAULSON #### [facility] [address] [place] [address] Dr. Wesley Ashraf Erythrocyte distribution width (RBC) [Ratio] 13.0 % Normal 11.0-15.0 [facility] Comment on above: Performed By: #### B ERIC PAULSON #### [facility] [address] [place] [address] Dr. Wesley Ashraf Hematocrit (Bld) [Volume fraction] 39.2 % Critically low 42.0-54.0 [facility] Comment on above: Performed By: #### B ERIC PAULSON #### [facility] [address] [place] [address] Dr. Wesley Ashraf Hemoglobin (Bld) [Mass/Vol] 13.4 g/dL Critically low 14.0-18.0 [facility] Comment on above: Performed By: #### B ERIC PAULSON #### [facility] [address] [place] [address] Dr. Wesley Ashraf IG # 0.02 10e3/ul Normal 0.00-0.03 [facility] Comment on above: Performed By: #### ERIC Cannon MP #### [facility] [address] [place] [address] Dr. Wesley Ashraf IG % 0.3 % Normal 0.0-0.5 [facility] Comment on above: Performed By: #### B ERIC PAULSON #### [facility] [address] [address] [address] Wesley Ashraf LYMPH # 1.6 103/ul Normal 1.2-3.8 [facility] Comment on above: Performed By: #### B MP, CMADM #### [facility] [address] [address] [address] Wesley Ashraf Lymphocytes/100 WBC (Bld) 22.6 % Normal 20.5-60.0 [facility] Comment on above: Performed By: #### B MP, CMADM #### [facility] [address] [place] [address] Dr. Wesley Ashraf MANUAL DIFF REQ NO Normal [facility] Comment on above: Performed By: #### B KHURRAM, CMADM #### [facility] [address] [place] [address] Dr. Wesley Ashraf MCH (RBC) [Entitic mass] 28.9 pg Normal 25.9-34.0 [facility] Comment on above: Performed By: #### B MP, CMADM #### [facility] [address] [place] [address] Dr. Wesley Ashraf MCHC (RBC) [Mass/Vol] 34.2 g/dL Normal 29.9-35.2 [facility] Comment on above: Performed By: #### B MP, CMADM #### [facility] [address] [place] [address] Dr. Wesley Ashraf MCV (RBC) [Entitic vol] 84.7 fL Normal 80.0-94.0 [facility] Comment on above: Performed By: #### B MP, CMADM #### [facility] [address] [place] [address] Dr. Wesley Ashraf MONO # 0.6 103/ul Normal 0.3-0.8 [facility] Comment on above: Performed By: #### B MP, CMADM #### [facility] [address] [place] [address] Dr. Wesley Ashraf Monocytes/100 WBC (Bld) 8.0 % Normal 1.7-12.0 [facility] Comment on above: Performed By: #### B MP, CMADM #### [facility] [address] [address] [address] Wesley Ashraf NEUT # 4.6 103/ul Normal 1.4-6.5 [facility] Comment on above: Performed By: #### B MP, CMADM #### [facility] [address] [address] [address] Wesley Ashraf Neutrophils/100 WBC (Bld) 66.4 % Normal 43.0-75.0 [facility] Comment on above: Performed By: #### B MP, CMADM #### [facility] [address] [address] [address] Wesley Ashraf Platelet mean volume (Bld) [Entitic vol] 9.8 fL Normal 9.5-13.5 [facility] Comment on above: Performed By: #### B KHURRAM, CMADM #### [facility] [address] [address] [address] Wesley Ashraf PLT 295 103/ul Normal 150-450 [facility] Comment on above: Performed By: #### B KHURRAM, CMADM #### [facility] [address] [address] [address] Wesley Ashraf RBC 4.63 106/ul Critically low 4.70-6.10 [facility] Comment on above: Performed By: #### B KHURRAM, CMADM #### [facility] [address] [address] [address] Wesley Ashraf WBC 7.0 103/ul Normal 4.0-11.0 [facility] Comment on above: Performed By: #### B MP, CMADM #### [facility] [address] [address] [address] Wesley Ashraf GLYCOHEMOGLOBIN A1Con 2021 ADA RECOMMENDATION ADA THERAPEUTIC TARGET 6.0 - 7.0 ACTION SUGGESTED > 7.0 Normal [facility] Comment on above: Performed By: #### B MP, CMADM #### [facility] [address] [address] [address] Wesley Ashraf Glucose [Mass/Vol] 117 mg/dL Normal [facility] Comment on above: Performed By: #### B KHURRAM CMADM #### [facility] [address] [place] [address] Dr. Wesley Ashraf HbA1c (Bld) [Mass fraction] 5.7 % Normal <=6.0 [facility] Comment on above: Performed By: #### B AMADO PAULSONDM #### [facility] [address] [place] [address] Dr. Wesley Ashraf LIPASEon 05-23-2021 Lipase [Catalytic activity/Vol] 128.0 U/L Normal 23.0-300.0 [facility] Comment on above: Performed By: #### C MREP #### [facility] [address] [place] [address] Dr. Wesley Ashraf LIPID PROFILEon 05-23-2021 CHOL-HDL RATIO NORM SEE BELOW Normal [facility] Comment on above: Result Comment: 3.3 - 4.4 LOW RISK 4.4 - 7.1 AVERAGE RISK 7.1 - 11.0 MODERATE RISK >11.0 HIGH RISK Performed By: #### C MREP #### [facility] [address] [place] [address] Dr. Wesley Ashraf Cholesterol [Mass/Vol] 135 mg/dL Normal <=200 [facility] Comment on above: Performed By: #### C MREP #### [facility] [address] [place] [address] Dr. Wesley Ashraf Cholesterol in HDL [Mass/Vol] 56 mg/dL Normal [facility] Comment on above: Performed By: #### C MREP #### [facility] [address] [place] [address] Dr. Wesley Ashraf Cholesterol in LDL [Mass/Vol] 39.4 mg/dL Normal [facility] Comment on above: Performed By: #### C MREP #### [facility] [address] [place] [address] Dr. Wesley Ashraf Cholesterol.total /Cholesterol in HDL [Mass ratio] 2.4 {ratio} Normal [facility] Comment on above: Performed By: #### C MREP #### [facility] [address] [address] [address] Wesley Ashraf HDL NORMAL > or = 60 mg/dl - LO W CARDIOVASCULAR RISK <40 mg/dl - HIGH CARDIOVASCULAR RISK Normal [facility] [facility] Comment on above: Performed By: #### C MREP #### [facility] [address] [address] [address] Wesley Ashraf LDL CALC NORMAL SEE BELOW Normal [facility] Comment on above: Result Comment: <100 mg/dl OPTIMAL 100 - 129 mg/dl NEAR OR ABOVE OPTIMAL 130 - 159 mg/dl BORDERLINE HIGH 160 - 189 mg/dl HIGH >190 mg/dl VERY HIGH Performed By: #### C MREP #### [facility] [address] [place] [address] Dr. Wesley Ashraf Triglyceride [Mass/Vol] 198 mg/dL Critically high <=150 [facility] Comment on above: Performed By: #### C MREP #### [facility] [address] [place] [address] Dr. Wesley Ashraf VLDL CALC 39.6 mg/dL Normal [facility] Comment on above: Performed By: #### C MREP #### [facility] [address] [address] [address] Wesley Ashraf PROF 14(COMP METB)on 022 Albumin [Mass/Vol] 3.7 g/dL Normal 3.5-5.0 [facility] Comment on above: Performed By: #### C BC #### [facility] [address] [place] [address] Dr. Wesley Ashraf Albumin/Globulin [Mass ratio] 1.1 {ratio} Normal [facility] Comment on above: Performed By: #### C BC #### [facility] [address] [place] [address] Dr. Wesley Ashraf ALP [Catalytic activity/Vol] 63 U/L Normal 38-126 [facility] Comment on above: Performed By: #### C BC #### [facility] [address] [address] [address] Wesley Ashraf ALT [Catalytic activity/Vol] 36 U/L Normal 21-72 [facility] Comment on above: Performed By: #### C BC #### [facility] [address] [address] [address] Wesley Ashraf Anion gap [Moles/Vol] 16.4 mmol/L Normal [facility] Comment on above: Performed By: #### C BC #### [facility] [address] [address] [address] Wesley Ashraf AST [Catalytic activity/Vol] 20 U/L Normal 17-59 [facility] Comment on above: Performed By: #### C BC #### [facility] [address] [address] [address] Wesley Ashraf Bilirubin [Mass/Vol] 0.6 mg/dL Normal 0.2-1.3 [facility] Comment on above: Performed By: #### C BC #### [facility] [address] [place] [address] Dr. Wesley Ashraf Calcium [Mass/Vol] 8.9 mg/dL Normal 8.4-10.2 [facility] Comment on above: Performed By: #### C BC #### [facility] [address] [address] [address] Wesley Ashraf Chloride [Moles/Vol] 102 mmol/L Normal 98-107 [facility] Comment on above: Performed By: #### C BC #### [facility] [address] [place] [address] Dr. Wesley Ashraf CO2 [Moles/Vol] 23.7 mmol/L Normal 22.0-30.0 [facility] Comment on above: Performed By: #### C BC #### [facility] [address] [place] [address] Dr. Wesley Ashraf Creatinine [Mass/Vol] 0.81 mg/dL Normal 0.66-1.25 [facility] Comment on above: Performed By: #### C BC #### [facility] [address] [address] [address] Wesley Ashraf EGFR-AF CITIZEN OF THE [place] >60 Normal >=60 [facility] Comment on above: Performed By: #### C BC #### [facility] [address] [place] [address] Dr. Wesley Ashraf EGFR-NON AF CITIZEN OF THE [place] >60 Normal >=60 [facility] Comment on above: Performed By: #### C BC #### [facility] [address] [place] [address] Dr. Wesley Ashraf Globulin (S) [Mass/Vol] 3.3 g/dL Normal [facility] Comment on above: Performed By: #### C BC #### [facility] [address] [place] [address] Dr. Welsey Ashraf Glucose [Mass/Vol] 104 mg/dL Normal 74-106 [facility] Comment on above: Performed By: #### C BC #### [facility] [address] [place] [address] Dr. Wesley Ashraf Potassium [Moles/Vol] 4.1 mmol/L Normal 3.4-5.0 [facility] Comment on above: Performed By: #### C BC #### [facility] [address] [place] [address] Dr. Wesley Ashraf Protein [Mass/Vol] 7.0 g/dL Normal 6.1-8.2 [facility] Comment on above: Performed By: #### C BC #### [facility] [address] [place] [address] Dr. Wesley Ashraf Sodium [Moles/Vol] 138 mmol/L Normal 137-145 [facility] Comment on above: Performed By: #### C BC #### [facility] [address] [place] [address] Dr. Wesley Ashraf Urea nitrogen [Mass/Vol] 17.0 mg/dL Normal 9.0-20.0 [facility] Comment on above: Performed By: #### C BC #### [facility] [address] [place] [address] Dr. Wesley Ashraf Urea nitrogen/Creatini ne [Mass ratio] 21.0 mg/mg Normal [facility] Comment on above: Performed By: #### C BC #### [facility] [address] [place] [address] Dr. Wesley Ashraf URIC ACID SERUMon 05-23-2021 Urate [Mass/Vol] 4.6 mg/dL Normal 3.5-8.5 [facility] Comment on above: Performed By: #### C MREP #### [facility] [address] [place] [address] Dr. Wesley Ashraf CARDIAC NIKO ADMITon 021 CK [Catalytic activity/Vol] 105 U/L Normal 55-170 [facility] Comment on above: Performed By: #### B KHURRAM, ERIC #### [facility] [address] [place] [address] Dr. Wesley Ashraf CK.MB [Mass/Vol] 1.63 ng/mL Normal <=2.37 [facility] Comment on above: Performed By: #### B ERIC PAULSON #### [facility] [address] [place] [address] Dr. Wesley Ashraf HSTROP 7.7 pg/mL Normal 4.0-42.2 [facility] Comment on above: Result Comment: CUT- OFF POINTS HAVE BEEN ESTABLISHED BASED ON THE FOURTH UNIVERSAL DEFINITIONS OF MYOCARDIAL INFARCTION. THE UPPER REFERENCE LIMIT (URL) OF TROPONIN, DEFINED THE 99TH PERCENTILE OF cTnI DISTRIBUTION IN A REFERENCE POPULATION, HAS BEEN CONFIRMED THE DECISION THRESHOLD FOR FL DIAGNOSIS. Performed By: #### B ERIC PAULSON #### [facility] [address] [place] [address] Dr. Wesley Ashraf ARUN 33.0 ng/mL Normal <=121.0 [facility] Comment on above: Performed By: #### B ERIC PAULSON #### [facility] [address] [place] [address] Dr. Wesley Ashraf CBC AUTO DIFFon 04-13-2021 BASO # 0.0 103/ul Normal 0.0-0.1 [facility] Comment on above: Performed By: #### B ERIC PAULSON #### [facility] [address] [place] [address] Dr. Wesley Ashraf Basophils/100 WBC (Bld) 0.2 % Normal 0.2-2.0 [facility] Comment on above: Performed By: #### B KHURRAM, CMADM #### [facility] [address] [place] [address] Dr. Wesley Ashraf EO # 0.3 103/ul Normal 0.0-0.7 [facility] Comment on above: Performed By: #### B KHURRAM, CMADM #### [facility] [address] [place] [address] Dr. Wesley Ashraf Eosinophils/100 WBC (Bld) 4.2 % Normal 0.9-7.0 [facility] Comment on above: Performed By: #### B KHURRAM, CMADM #### [facility] [address] [place] [address] Dr. Wesley Ashraf Erythrocyte distribution width (RBC) [Ratio] 12.3 % Normal 11.0-15.0 [facility] Comment on above: Performed By: #### B KHURRAM, AMADODM #### [facility] [address] [place] [address] Dr. Wesley Ashraf Hematocrit (Bld) [Volume fraction] 38.6 % Critically low 42.0-54.0 [facility] Comment on above: Performed By: #### B KHURRAM, AMADODM #### [facility] [address] [place] [address] Dr. Wesley Ashraf Hemoglobin (Bld) [Mass/Vol] 13.5 g/dL Critically low 14.0-18.0 [facility] Comment on above: Performed By: #### B KHURRAM, AMADODM #### [facility] [address] [place] [address] Dr. Wesley Ashraf IG # 0.02 10e3/ul Normal 0.00-0.03 [facility] Comment on above: Performed By: #### B KHURRAM, AMADODM #### [facility] [address] [place] [address] Dr. Wesley Ashraf IG % 0.3 % Normal 0.0-0.5 [facility] Comment on above: Performed By: #### B KHURRAM, CMADM #### [facility] [address] [place] [address] Dr. Wesley Ashraf LYMPH # 1.5 103/ul Normal 1.2-3.8 [facility] Comment on above: Performed By: #### B KHURRAM, CMADM #### [facility] [address] [place] [address] Dr. Wesley Ashraf Lymphocytes/100 WBC (Bld) 25.1 % Normal 20.5-60.0 [facility] Comment on above: Performed By: #### B KHURRAM, CMADM #### [facility] [address] [place] [address] Dr. Wesley Ashraf MANUAL DIFF REQ NO Normal [facility] Comment on above: Performed By: #### B KHURRAM, CMADM #### [facility] [address] [place] [address] Dr. Wesley Ashraf MCH (RBC) [Entitic mass] 29.3 pg Normal 25.9-34.0 [facility] Comment on above: Performed By: #### B KHURRAM, CMADM #### [facility] [address] [place] [address] Dr. Wesley Ashraf MCHC (RBC) [Mass/Vol] 35.0 g/dL Normal 29.9-35.2 [facility] Comment on above: Performed By: #### B KHURRAM, CMADM #### [facility] [address] [place] [address] Dr. Wesley Ashraf MCV (RBC) [Entitic vol] 83.9 fL Normal 80.0-94.0 [facility] Comment on above: Performed By: #### B KHURRAM, CMADM #### [facility] [address] [place] [address] Dr. Wesley Ashraf MONO # 0.5 103/ul Normal 0.3-0.8 [facility] Comment on above: Performed By: #### B KHURRAM, CMADM #### [facility] [address] [place] [address] Dr. Wesley Ashraf Monocytes/100 WBC (Bld) 8.4 % Normal 1.7-12.0 [facility] Comment on above: Performed By: #### B KHURRAM, CMADM #### [facility] [address] [place] [address] Dr. Wesley Ashraf NEUT # 3.7 103/ul Normal 1.4-6.5 [facility] Comment on above: Performed By: #### B KHURRAM, AMADODM #### [facility] [address] [place] [address] Dr. Wesley Ashraf Neutrophils/100 WBC (Bld) 61.8 % Normal 43.0-75.0 [facility] Comment on above: Performed By: #### B KHURRAM, AMADODM #### [facility] [address] [place] [address] Dr. Wesley Ashraf Platelet mean volume (Bld) [Entitic vol] 10.2 fL Normal 9.5-13.5 [facility] Comment on above: Performed By: #### B AMADO PAULSONDM #### [facility] [address] [place] [address] Dr. Wesley Ashraf PLT 206 103/ul Normal 150-450 [facility] Comment on above: Performed By: #### Davis PAULSON CMADM #### [facility] [address] [place] [address] Dr. Wesley Ashraf RBC 4.60 106/ul Critically low 4.70-6.10 [facility] Comment on above: Performed By: #### B AMADO PAULSONDM #### [facility] [address] [place] [address] Dr. Wesley Ashraf WBC 5.9 103/ul Normal 4.0-11.0 [facility] Comment on above: Performed By: #### Davis PAULSON CMADM #### [facility] [address] [place] [address] Dr. Wesley Ashraf Covid-19 PCR (CVDTBH)on SARS-CoV-2 (COVID-19) RNA JOHN+probe Ql (Unsp spec) Detected Critically abnormal NOT DETECTED [facility] Comment on above: Result Comment: This test is not yet approved or cleared by the [place] Food and Drug Administration (FDA). This test was developed by [employer], [place], [place]. The performance characteristics of this test were validated by [facility]. The results are not intended to be used as the sole means for clinical diagnosis or patient management decisions. [facility] is authorized under Clinical Laboratory Improvement Amendments (CLIA) to perform high- complexity testing. This test is not yet approved or cleared by the [place] FDA. When there are no FDA-approved or cleared tests available, and other criteria are met, FDA can make tests available under an emergency access mechanism called an Emergency Use Authorization (EUA). The EUA for this test is supported by the [place] of Health and Human Service's declaration that circumstances exist to justify the emergency use of in vitro diagnostics for the detection and/or diagnosis of the virus that causes COVID-19. This EUA will remain in effect for the duration of the COVID-19 declaration justifying emergency of IVDs, unless it is terminated or revoked by the FDA (after which the test may no longer be used). Performed By: #### B MP, CMADM #### [facility] [address] [place] [address] Dr. Wesley Ashraf D-DIMERon 04-13-2021 D-DIMER <0.19 Normal 0.19-0.50 [facility] Comment on above: Performed By: #### D DIM #### [facility] [address] [place] [address] Dr. Wesley Ashraf D-DIMER COMMENTS SEE BELOW Normal [facility] Comment on above: Result Comment: Incr eases in D-Dimer concentration observed with thromboembolic events can be variable due to localization, size, and age of the thrombus. Therefore, a thromboembolic event cannot be diagnosed with certainty on the basis of the reference range. D-Dimers may also be elevated for a variety of disorders including: advanced age, , coronary disease, cancer, liver disease, infection, inflammation, hematoma, DIC, trauma, post-surgery, diabetes, thrombolytic or anticoagulant therapy, stress, and generalized hospitalization. Performed By: #### D DIM #### [facility] [address] [place] [address] Dr. Wesley Ashraf INFLUENZA A AND B AGon 04-13 INFLUANEGH SEE BELOW Normal [facility] Comment on above: Result Comment: Nega tive for Flu A protein angiten. Infection due to Flu A cannot be ruled out. Flu A angiten in the sample may be below the detection limit of the test. Performed By: #### C MREP #### [facility] [address] [place] [address] [facility] SEE BELOW Normal [facility] Comment on above: Result Comment: Nega tive for Flu B protein antigen. Infection due to Flu B cannot be ruled out. Flu B antigen in the sample may be below the detection limit of the test. Performed By: #### C MREP #### [facility] [address] [place] [address] Dr. Wesley Ashraf INFLUENZA A AG Negative Normal NEGATIVE SEE COMMENT [facility] Comment on above: Performed By: #### C MREP #### [facility] [address] [place] [address] Dr. Wesley Ashraf INFLUENZA B AG Negative Normal NEGATIVE SEE COMMENT [facility] Comment on above: Performed By: #### C MREP #### [facility] [address] [place] [address] Dr. Wesley Ashraf INTERNAL CONTROLS Within Normal Limits Normal Wi thin Normal Limits [facility] Comment on above: Performed By: #### C MREP #### [facility] [address] [place] [address] Dr. Wesley Ashraf PROF CHEM 8 (BAS METB)on Anion gap [Moles/Vol] 14.6 mmol/L Normal [facility] Comment on above: Performed By: #### B ERIC PAULSON #### [facility] [address] [place] [address] Dr. Wesley Ashraf Calcium [Mass/Vol] 9.0 mg/dL Normal 8.4-10.2 [facility] Comment on above: Performed By: #### B AMADO PAULSONDM #### [facility] [address] [place] [address] Dr. Wesley Ashraf Chloride [Moles/Vol] 101 mmol/L Normal 98-107 [facility] Comment on above: Performed By: #### B AMADO PAULSONDM #### [facility] [address] [place] [address] Dr. Wesley Ashraf CO2 [Moles/Vol] 25.2 mmol/L Normal 22.0-30.0 [facility] Comment on above: Performed By: #### B MP, CMADM #### [facility] [address] [place] [address] Dr. Wesley Ashraf Creatinine [Mass/Vol] 0.76 mg/dL Normal 0.66-1.25 [facility] Comment on above: Performed By: #### B MP, CMADM #### [facility] [address] [address] [address] Wesley Ashraf EGFR-AF CITIZEN OF [place] >60 Normal >=60 [facility] Comment on above: Performed By: #### B KHURRAM, CMADM #### [facility] [address] [place] [address] Dr. Wesley Ashraf EGFR-NON AF CITIZEN OF [place] >60 Normal >=60 [facility] Comment on above: Performed By: #### B KHURRAM, CMADM #### [facility] [address] [address] [address] Wesley Ashraf Glucose [Mass/Vol] 103 mg/dL Normal 74-106 [facility] Comment on above: Performed By: #### B KHURRAM, CMADM #### [facility] [address] [place] [address] Dr. Wesley Ashraf Potassium [Moles/Vol] 3.8 mmol/L Normal 3.4-5.0 [facility] Comment on above: Performed By: #### B KHURRAM, CMADM #### [facility] [address] [place] [address] Dr. Wesley Ashraf Sodium [Moles/Vol] 137 mmol/L Normal 137-145 [facility] Comment on above: Performed By: #### B KHURRAM, CMADM #### [facility] [address] [address] [address] Wesley Ashraf Urea nitrogen [Mass/Vol] 17.0 mg/dL Normal 9.0-20.0 [facility] Comment on above: Performed By: #### B KHURRAM, CMADM #### [facility] [address] [place] [address] Dr. Wesley Ashraf Urea nitrogen/Creatini ne [Mass ratio] 22.4 mg/mg Normal [facility] Comment on above: Performed By: #### B , [facility] #### [facility] [id number] Wesley Ashraf XR CHEST 1 Von 04-13-2021 XR CHEST 1 V EXAM: XR CHEST 1 V HISTORY: SHORTNESS OF BREATH COMPARISON: 08/05/2019 TECHNIQUE: Portable AP chest 7:03 AM FINDINGS: Lungs are clear and heart size is normal. No pleural effusion or pneumothorax IMPRESSION: No acute findings Electronically authenticated by: CHRISTIANA HERNÁNDEZ Date: 2021-04-13 07:39 Normal [facility] Discharge Summaryon 11-13-19 Discharge Summary MR#: [id number] n [facility] Pt. Name: Ronnell Peres Admitted: 11/10/2017 Discharged: 11/11/2017 Date of : 1955 Physician: Andrew Braswell MD [facility]: Name unknown.PRINCIPAL PROBLEM:1. Acute ST-elevated FL.2. Tobacco abuse.3. Alcohol abuse.HOSPITAL COURSE: Mr. Peres is a 62-year-old gentleman with no pastmedical history and reports having not seen a family doctor physician inthe last 2 decades. He presented to the [facility] withcomplaints of acute onset of left-sided chest pain that radiated toshoulder and jaw, that was worse with exertion and was slightly responsiveto nitroglycerin. His EKG at that time showed ST elevations in lead I andaVL for which reason, he was urgently transferred to [facility] to undergopercutaneous intervention. The patient underwent coronary angiogram, whichfound 99% stenosis of the first diagonal branch for which a successfulballoon dilation and drug-eluting stent placement was completed. Thepatient tolerated this procedure well and had no postprocedurecomplications. He was started on aspirin and Plavix therapy, and he willneed to continue Plavix for a minimum of 1 year. He was also started onbeta joan, Toprol-XL, and lisinopril. Echocardiogram was completed,which showed a normal EF of 55% with no regional wall abnormality. Therewas no diastolic dysfunction and no valvular abnormalities. The patient'splatelet level remained stable while on Plavix, and he verbalizedunderstanding of his new medication regimen. Cardiology team followed thepatient throughout his stay and coordinated discharge followup appointmentin the Cardiology Clinic with Dr. Pulliam. Cardiac Rehab was consultedfollowing his myocardial infarction, and the patient was counseled onsmoking and alcohol cessation. The patient had some bradycardia with hismetoprolol dose that was decreased on day of discharge. On day ofdischarge, patient was stable, denied any further chest pain, had no ectopyon telemetry and no hematoma at the catheterization site. The patient wasdischarged to home in stable condition with instructions for strictmedication adherence and followup.PHYSICAL EXAMINATION ON DAY OF DISCHARGE: GENERAL: Alert and oriented x3,no distress.HEENT: Sclerae nonicteric, PERRLA.CARDIOVASCULAR: S1, S2, regular rate and rhythm.PULMONARY: Clear throughout, no wheeze.ABDOMEN: Soft, nontender, positive bowel sounds.EXTREMITIES: No edema, pulses palpable.NEUROLOGIC: No focal neuro deficits.PSYCH: Calm, cooperative, judgment normal.DISCHARGE INSTRUCTIONS: Discharge to: Home.PLAN OF CARE:1. ST-elevated myocardial infarction. a. Very important to follow up with Cardiology as scheduled on 11/16/2017. Continue all medications as prescribed. Do not miss Plavix dose.2. Tobacco cessation. a. Discussed smoking cessation. Use nicotine patch as prescribed.3. Alcohol use. a. Please abstain from use, especially now that you are on aspirin and Plavix.DISCHARGE DIET: Cardiac.DISCHARGE ACTIVITIES: No restrictions.DISCHARGE FOLLOWUP APPOINTMENT:1. With PCP in 1-2 weeks.2. Discharge followup appointment with Cardiology on 11/16/2017, at 2:40 p.m.Discharge cardiac rehab phase 1: At [place].3. Patient has been counselled on Smoking Cessation and Abstinence fromAlcohol.DISCHARGE MEDICATIONS:1. Aspirin 81 mg oral daily.2. Clopidogrel 75 mg oral daily.3. Lisinopril 5 mg oral daily.4. Metoprolol succinate 12.5 mg oral daily.5. Nicotine patch 21 mg daily for 6 weeks followed by 14 mg a day for 2 weeks and finish with 7 mg a day for 2 weeks.6. Rosuvastatin 40 mg oral daily.7. Nitroglycerin 0.5 mL sublingual tablet as needed for chest pain every 5 minutes x3 doses.TOTAL TIME OF DISCHARGE: 40 minutes.Electronically Signed by:Andrew Braswell MD 11/15/2017 03:01 P Andrew Braswell MD I personally saw this patient on the day of the encounter, performed thekey portion(s) of the service and participated in the management andconfirm the resident's documentation. Please note there may be anadditional personal documentation from me. Date Dict: 11/11/2017/05:08 P/Janis Greene CNPDate Trans: 11/12/2017 02:35 A/mmoDN_JN:[id number] Normal [facility] CBC COMPLETE BLOOD COUNTon 0 11-11-2017 Erythrocyte distribution width Auto Ratio (RBC) 12.2 % Normal 11.5-15.0 [facility] Comment on above: Order Comment: Unkno wn Performed By: #### 5 0608 ####[facility] [facility].[address] Erythrocytes (RBC) 4.18 10*6/uL Low 4.20-5.70 [facility] Comment on above: Order Comment: Unkno wn Performed By: #### 5 0608 ####[facility] Hematocrit (HCT) 35.5 % Low 39.0-50.0 [facility] Comment on above: Order Comment: Unkno wn Performed By: #### 5 0608 ####[facility] [facility].[address] Hemoglobin mass conc (Bld) 12.5 g/dL Low 13.0-17.0 [facility] Comment on above: Order Comment: Unkno wn Performed By: #### 5 0608 ####[facility] [facility].[address] MCH 29.9 pg Normal 27.0-33.0 [facility] Comment on above: Order Comment: Unkno wn Performed By: #### 5 0608 ####[facility] [facility].[address] MCHC mass conc (RBC) 35.2 g/dL High 32.0-35.0 [facility] Comment on above: Order Comment: Unkno wn Performed By: #### 5 0608 ####[facility] MCV 84.9 fL Normal 82.0-98.0 [facility] Comment on above: Order Comment: Unkno wn Performed By: #### 5 0608 ####[facility] NRBC 0 % Normal 0-0 [facility] Comment on above: Order Comment: Unkno wn Performed By: #### 5 0608 ####[facility] PLAT CNT 240 10*3/uL Normal 150-400 [facility] Comment on above: Order Comment: Unkno wn Performed By: #### 5 0608 ####[facility] WBC (Leukocytes) 9.79 10*3/uL Normal 4.00-10.60 [facility] Comment on above: Order Comment: Unkno wn Performed By: #### 5 0608 ####[facility] [facility].[address] COMP METABOLIC PANELon 11-11 Alanine aminotransferase (ALT) 18 U/L Normal 7-52 [facility] Comment on above: Order Comment: Yes: Add to Previous draw if able Performed By: #### 4 6413, 49060, 60127, 83759, 54810 ####[facility] [facility].[address] Albumin 3.7 g/dL Normal 3.5-5.7 [facility] Comment on above: Order Comment: Yes: Add to Previous draw if able Performed By: #### 4 6413, 89894, 17212, 66149, 66957 ####[facility] [place] [address], [facility] ALKALINE PHOSPH 44 IU/L Normal 34-104 [facility] Comment on above: Order Comment: Yes: Add to Previous draw if able Performed By: #### 4 6413, 49394, 09456, 69562, 71538 ####[facility] Aspartate aminotransferase (AST) 32 U/L Normal 13-39 [facility] Comment on above: Order Comment: Yes: Add to Previous draw if able Performed By: #### 4 6413, 52142, 21748, 15943, 48770 ####[facility] Bilirubin (total) 0.6 mg/dL Normal 0.3-1.0 [facility] Comment on above: Order Comment: Yes: Add to Previous draw if able Performed By: #### 4 6413, 31396, 20128, 08328, 17782 ####[facility] [place] [address], [facility] Calcium 8.8 mg/dL Normal 8.6-10.3 [facility] Comment on above: Order Comment: Yes: Add to Previous draw if able Performed By: #### 4 6413, 78771, 04413, 15365, 39400 ####[facility] [place] [address], [facility] Chloride 106 mmol/L Normal 98-107 [facility] Comment on above: Order Comment: Yes: Add to Previous draw if able Performed By: #### 4 6413, 14093, 53704, 50361, 07381 ####[facility] [place] [address], [facility] CO2 26 mmol/L Normal 21-31 [facility] Comment on above: Order Comment: Yes: Add to Previous draw if able Performed By: #### 4 6413, 48713, 65595, 55330, 59007 ####[facility] [place] [address], [facility] Creatinine 0.70 mg/dL Normal 0.70-1.30 [facility] Comment on above: Order Comment: Yes: Add to Previous draw if able Performed By: #### 4 6413, 95167, 77037, 81901, 55241 ####[facility] [place] [address], [facility] eGFR (black) mL/min/{1.73_m2} Normal >60 [facility] Comment on above: Order Comment: Yes: Add to Previous draw if able Performed By: #### 4 6413, 98243, 53085, 63498, 67451 ####[facility] eGFR (non-black) mL/min/{1.73_m2} Normal >60 [facility] Comment on above: Order Comment: Yes: Add to Previous draw if able Performed By: #### 4 6413, 82831, 38179, 87369, 69253 ####[facility] [place] [address], [facility] Glucose mass conc 90 mg/dL Normal 70-100 [facility] Comment on above: Order Comment: Yes: Add to Previous draw if able Performed By: #### 4 6413, 68465, 27234, 52390, 47967 ####[facility] [place] [address], [facility] Potassium molar conc 3.5 mmol/L Normal 3.5-5.1 [facility] Comment on above: Order Comment: Yes: Add to Previous draw if able Performed By: #### 4 6413, 03634, 83466, 28922, 79230 ####[facility] Protein 6.2 g/dL Normal 6.0-8.3 [facility] Comment on above: Order Comment: Yes: Add to Previous draw if able Performed By: #### 4 6413, 18097, 30907, 83774, 89167 ####[facility] Sodium 134 mmol/L Low 136-145 [facility] Comment on above: Order Comment: Yes: Add to Previous draw if able Performed By: #### 4 6413, 38972, 43227, 06105, 40653 ####[facility] Urea nitrogen 12 mg/dL Normal 7-25 [facility] Comment on above: Order Comment: Yes: Add to Previous draw if able Performed By: #### 4 6413, 48414, 30249, 88491, 93853 ####[facility] [place] [address], [facility] MAGNESIUM BLOODon 11-11-2017 Magnesium 1.8 mg/dL Low 1.9-2.7 [facility] Comment on above: Order Comment: Yes: Add to Previous draw if able Performed By: #### 4 6413, 83004, 16642, 13351, 91643 ####[facility] [place] [address], [facility] PHOSPHORUS BLOODon 8 Phosphate 2.7 mg/dL Normal 2.5-5.0 [facility] Comment on above: Order Comment: Yes: Add to Previous draw if able Performed By: #### 4 6413, 82075, 72978, 42115, 86079 ####[facility] TROPONIN-Ion 11-11-2017 Troponin I.cardiac mass conc 1.65 ng/mL Critically high 0.00-0.04 [facility] Comment on above: Order Comment: Yes: Add to Previous draw if able Result Comment: REFE RENCE RANGES: 0.00 - 0.04 ng/ml NORMAL 0.05 - 0.50 ng/ml INDETERMINATE > 0.50 ng/ml CONSISTENT WITH AN M.I. Performed By: #### 4 6413, 73648, 12089, 66245, 47156 ####[facility] [facility].[address] CBC COMPLETE BLOOD COUNTon 0 11-10-2017 Erythrocyte distribution width Auto Ratio (RBC) 12.2 % Normal 11.5-15.0 [facility] Comment on above: Order Comment: No: D o not add to previous draw Performed By: #### 5 0608 ####[facility].[address] Erythrocytes (RBC) 4.15 10*6/uL Low 4.20-5.70 [facility] Comment on above: Order Comment: No: D o not add to previous draw Performed By: #### 5 0608 ####[facility] [facility].[address] Hematocrit (HCT) 35.8 % Low 39.0-50.0 [facility] Comment on above: Order Comment: No: D o not add to previous draw Performed By: #### 5 0608 ####[facility] [facility].[address] Hemoglobin mass conc (Bld) 12.8 g/dL Low 13.0-17.0 [facility] Comment on above: Order Comment: No: D o not add to previous draw Performed By: #### 5 0608 ####[facility] [facility].[address] MCH 30.8 pg Normal 27.0-33.0 [facility] Comment on above: Order Comment: No: D o not add to previous draw Performed By: #### 5 0608 ####[facility] MCHC mass conc (RBC) 35.8 g/dL High 32.0-35.0 [facility] Comment on above: Order Comment: No: D o not add to previous draw Performed By: #### 5 0608 ####[facility] MCV 86.3 fL Normal 82.0-98.0 [facility] Comment on above: Order Comment: No: D o not add to previous draw Performed By: #### 5 0608 ####[facility] NRBC 0 % Normal 0-0 [facility] Comment on above: Order Comment: No: D o not add to previous draw Performed By: #### 5 0608 ####[facility].[address] PLAT CNT 253 10*3/uL Normal 150-400 [facility] Comment on above: Order Comment: No: D o not add to previous draw Performed By: #### 5 0608 ####[facility] WBC (Leukocytes) 8.74 10*3/uL Normal 4.00-10.60 [facility] Comment on above: Order Comment: No: D o not add to previous draw Performed By: #### 5 0608 ####[facility] COMP METABOLIC PANELon 11-10 Alanine aminotransferase (ALT) 16 U/L Normal 7-52 [facility] Comment on above: Order Comment: No: D o not add to previous draw Performed By: #### 4 4913, 91717, 51948, 94786, 03208 ####[facility] [place] [address], [facility] Albumin 3.8 g/dL Normal 3.5-5.7 [facility] Comment on above: Order Comment: No: D o not add to previous draw Performed By: #### 4 6413, 75778, 13592, 30181, 49528 ####[facility] [place] [address], [facility] ALKALINE PHOSPH 58 IU/L Normal 34-104 [facility] Comment on above: Order Comment: No: D o not add to previous draw Performed By: #### 4 6413, 07547, 92544, 68720, 56322 ####[facility] [place] [address], [facility] Aspartate aminotransferase (AST) 30 U/L Normal 13-39 [facility] Comment on above: Order Comment: No: D o not add to previous draw Performed By: #### 4 6413, 83097, 80111, 13779, 67081 ####[facility] [place] [address], [facility] Bilirubin (total) 0.4 mg/dL Normal 0.3-1.0 [facility] Comment on above: Order Comment: No: D o not add to previous draw Performed By: #### 4 6413, 62547, 92310, 55711, 00980 ####[facility] [place] [address], [place] Calcium 8.8 mg/dL Normal 8.6-10.3 [facility] Comment on above: Order Comment: No: D o not add to previous draw Performed By: #### 4 6413, 62726, 70876, 35917, 55981 ####[facility] [place] [address], [place] Chloride 106 mmol/L Normal 98-107 [facility] Comment on above: Order Comment: No: D o not add to previous draw Performed By: #### 4 6413, 53959, 06686, 09240, 64127 ####[facility] [place] [address], [facility] CO2 23 mmol/L Normal 21-31 [facility] Comment on above: Order Comment: No: D o not add to previous draw Performed By: #### 4 6413, 30080, 05932, 97523, 40591 ####[facility] [place] [address], [facility] Creatinine 1.03 mg/dL Normal 0.70-1.30 [facility] Comment on above: Order Comment: No: D o not add to previous draw Performed By: #### 4 6413, 23863, 06633, 27165, 04617 ####[facility] eGFR (black) mL/min/{1.73_m2} Normal >60 [facility] Comment on above: Order Comment: No: D o not add to previous draw Performed By: #### 4 6413, 96307, 59710, 34537, 09897 ####[facility] eGFR (non-black) mL/min/{1.73_m2} Normal >60 [facility] Comment on above: Order Comment: No: D o not add to previous draw Performed By: #### 4 6413, 97469, 55909, 55691, 20960 ####[facility] [place] [address], [facility] Glucose mass conc 98 mg/dL Normal 70-100 [facility] Comment on above: Order Comment: No: D o not add to previous draw Performed By: #### 4 6413, 33502, 03210, 56261, 56428 ####[facility] Potassium molar conc 4.0 mmol/L Normal 3.5-5.1 [facility] Comment on above: Order Comment: No: D o not add to previous draw Performed By: #### 4 6413, 67147, 53917, 36924, 01178 ####[facility] [facility].[address] Protein 6.3 g/dL Normal 6.0-8.3 [facility] Comment on above: Order Comment: No: D o not add to previous draw Performed By: #### 4 6413, 38203, 85632, 82976, 36087 ####[facility] [facility].[address] Sodium 135 mmol/L Low 136-145 [facility] Comment on above: Order Comment: No: D o not add to previous draw Performed By: #### 4 6413, 43663, 62112, 61963, 59386 ####[facility] [facility].[address] Urea nitrogen 16 mg/dL Normal 7-25 [facility] Comment on above: Order Comment: No: D o not add to previous draw Performed By: #### 4 6413, 95650, 82293, 28934, 10522 ####[facility] [facility].[address] Cardiovascular Lab Reporton 11-10-2017 Cardiovascular Lab Report [facility] Patient Name: Ronnell Peres [facility] MR #: [id number] Physician: Michelle Mohan M.D.Medicine Service Date: 11/10/2017Division of Birthdate: 4Cardiology Room #: 3AB [id number] [place] [address]Phone Fax Cardiovascular Laboratory ReportINDICATION: The patient is a 62-year-old man, [facility] 1 hour prior topresentation. His EKG showed ST elevations in the lateral leads with STdepressions in the inferior leads. He was rushed by [facility] to [facility] for emergency coronary intervention. He was given heparin andaspirin before transfer.PROCEDURES:1. Bilateral selective coronary angiography.2. Limited right femoral angiography.3. Successful balloon dilatation and drug-eluting stenting of a 99% thrombotic stenosis in the first diagonal branch reduced to 0% by deployment of a Synergy 2.5 x 16 mm drug-eluting stent post dilated to 2.5 mm at high pressures.4. Administration of intracoronary nitroglycerin.5. Deployment of a vascular access closure device.METHOD: Procedure was explained to the patient with risks and benefits.No informed consent was signed due to the emergency nature of theprocedure. The patient was brought to our [facility]. The right groin areawas prepped and draped in usual fashion. Using micropuncture technique,the right common femoral artery was accessed and the access was upsized toa 6-[place] x 11 cm sheath. ACT was measured and additional heparin wasgiven and therapeutic ACT confirmed during the rest of the procedure.A 6-[place] XB 3.5 guiding catheter was advanced and used to engage the leftmain coronary ostium. Angiography of the left coronary system wasperformed in multiple views. A [place] wire was advanced into the distalfirst diagonal branch. Balloon angioplasty was performed using an Emerge2.5 x 12 mm balloon inflated at 6 atmospheres in the first diagonal branch.Angiography revealed suboptimal results. This was treated using deploymentof a Synergy 2.5 x 16 mm drug-eluting stent deployed at 11 atmospheres andpost dilated using [place] Quantum Andrew 2.5 x 12 mm noncompliant ballooninflated at 18 atmospheres throughout the length of the stent repeatedly.Angiography after administration of intracoronary nitroglycerin showedexcellent result with reduction of the stenosis in the diagonal branch to0%. No evidence of dissection or perforation and WYATT-3 flow in the leftcoronary system. The guiding catheter was removed. A 6-[place]izen [place] HW3eypozflihx catheter was advanced and used to engage the right coronaryostium. Angiography of the right coronary artery was performed in multipleviews. The catheter was retracted to the aortic root and non-selectiveinjection was performed in the right coronary cusp. The catheter wasremoved. Limited right femoral angiography was performed in multipleviews. The right femoral arteriotomy was managed with a 6-CndhgaTnafq-Ggxy device with good hemostasis. The patient was loaded with 600 mgof Plavix at the end of the procedure. He tolerated the procedure well.He was transferred to the cardiovascular unit for further management.TOTAL FLUORO TIME: 6.47 minutes.TOTAL AIR KERMA: 710 mGy.TOTAL CONTRAST VOLUME: 100 mL.HEMODYNAMICS: AO 111/69, mean 86.CORONARY ANGIOGRAPHY: This is a right dominant circulation.Left main: This arises from left coronary cusp. It bifurcates into leftanterior descending and circumflex vessels. The left main is free ofdisease.Left anterior descending: This is a large vessel. It bifurcates early oninto what seems to be a dual LAD system with a main LAD giving septalbranches, that main LAD has mild mid segment plaque, but no obstructivelesions. The LAD then gives a large diagonal branch, which itself givesmultiple diagonal branches, that major diagonal branch has a mid dudzouz62% thrombotic stenosis. This was reduced to 0% by balloon angioplasty andSynergy drug-eluting stenting. The rest of the diagonal branch is free ofdisease.Circumflex vessel: This is small and nondominant and is free of occlusivedisease.Right coronary artery: This arises from the right coronary cusp. It is jose large vessel. It is dominant and has mild disease in its mid segment,but no obstructive lesions.Limited femoral angiography: This showed access to be in the right commonfemoral artery with no obstructive lesions noted in the femoral artery withproximal branches.SUMMARY OF THE FINDINGS:1. Acute lateral ST-segment elevation myocardial infarction related to thrombotic subtotal occlusion of the large first diagonal branch.2. Successful balloon angioplasty and drug-eluting stenting of the first large diagonal branch using a Synergy drug-eluting stent.3. Mild disease in the right coronary artery.4. Small nondominant circumflex vessel with no disease.RECOMMENDATIONS:1. Aspirin and statin therapy for life.2. Plavix therapy for minimum of 1 year after drug-eluting stenting and acute myocardial infarction presentation.3. The patient will be started on beta-joan and WOJCIECH inhibitor.4. The patient will get echocardiogram for assessment of LV function and valvular function.5. Further recommendations per inpatient Cardiology service.Electronically Signed by:Michelle Pulliam M.D. 11/11/2017 07:27 A Michelle Pulliam M.D.Date Dict: 11/10/2017/02:41 A/Michelle Pulliam M.D.Date Trans: 11/10/2017 04:12 A/mmoDN_JN:[id number] Normal [facility] HEMOGLOBIN A1Con 11-10-2017 Glucose mass conc 100 mg/dL Normal 70-126 [facility] Comment on above: Order Comment: Yes: Add to Previous draw if able Performed By: #### 4 6447 ####[facility] Hemoglobin A1c/Hemoglobin.to neo mass fraction (Bld) 5.1 % Normal 4.0-6.0 [facility] Comment on above: Order Comment: Yes: Add to Previous draw if able Performed By: #### 4 6447 ####[facility] History and Physicalon 11-10 History and Physical MR[id number] Admitted: 11/10/2017 Date of : 1955 Attending Physician: Mansi Brooks M.D. Room #: 3AB [id number] Discharge Date: HISTORY AND PHYSICALCHIEF COMPLAINT: Chest pain.HISTORY OF PRESENT ILLNESS: The patient is a 62-year-old gentleman with apast medical history of kidney stones, who presented to the ER at [facility] with severe midsternal chest pain that started 1-hour prior toarrival. The patient was asleep and the pain woke him up from the sleep.The patient also had diaphoresis. He also felt short of breath and dizzy.He denied any syncopal episodes. He also complained of feeling weak. Thepatient had EKG done at the [facility] ER and it showed ST elevationin lead I and aVL and V1. The patient's chest x-ray was negative. Thepatient was life flighted to the [facility] for a stat cardiac cath. before that,he received a bolus of Brilinta and heparin 4000 units. The patient'schest pain was not better with nitro or aspirin. The patient underwentstat cardiac cath and had 1 stent placed. The patient right now reportsthat his chest pain has completely resolved and he feels much better. Hewas not taking any home medications. On the cardiac cath, he was found tohave 90% proximal occlusion in the first diagonal artery. The patientdenies any nausea, vomiting, headaches, or shortness of breath right now.DRUG ALLERGIES: No known allergies.PAST SURGERIES: Kidney stone removal few months ago.PAST MEDICAL HISTORY: Kidney stones. Otherwise negative for high bloodpressure, diabetes, or heart disease.SOCIAL HISTORY: The patient is an active smoker, 2 packs per day. He alsodrinks alcohol on a daily basis at least 6 beers a day. Denies any druguse. 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 He lives with his .FAMILY HISTORY: Positive for liver cirrhosis in his father, who [place], who is still alive.REVIEW OF SYSTEMS: Done and otherwise negative except pertinent positivefindings mentioned in HPI.PHYSICAL EXAMINATION: VITAL SIGNS: Temperature 97.5, pulse 80,respirations 19, blood pressure 130/93, oxygen saturation 98% on room air.GENERAL: The patient is alert, oriented x3 and in no acute distress. Heis able to answer questions appropriately.EYES: No conjunctival erythema.EARS: Hearing is normal bilaterally.MOUTH: Moist oral mucosa. Edentulous.NECK: Supple.RESPIRATORY: Diminished breath sounds bilaterally. No respiratorydistress.CARDIOVASC ULAR: Regular rate and rhythm. S1 and S2. No reproducibleanterior chest wall tenderness.ABDOMEN: Soft, nondistended and nontender. No rigidity. No rebound.EXTREMITIES: No pedal edema. No calf tenderness. Examination of theright iliac fossa where the patient had cardiac cath through it did notshow any hematoma.NEUROLOGIC: No motor or sensory deficits.SKIN: Soft, warm, dry to touch. No rash.PSYCHIATRIC: Mood and affect normal.LABS: We only had CBC from [facility] and it shows white blood cells 9.3,hemoglobin 13.7, hematocrit 37.7 and platelets 281. EKG in the [facility] ER shows ST elevation in lead I, aVL and V1 and ST depression inlead II and aVF. Chest x-ray was done as well and did not show anyinfiltrates. The labs here at [facility] are still pending.ASSESSMENT: ST elevation myocardial infarction, coronary artery disease,heavy smoker, alcohol abuse and history of kidney stones.PLAN: The patient is admitted to ICU for post cardiac catheterizationcare. Cardiology follows. Per their recommendations, the patient will bestarted on aspirin 81 mg daily and Plavix 75 mg daily. He already got 600mg bolus of Plavix [place] [employer]. The patient will also be takingmetoprolol 25 mg twice a day and atorvastatin 40 mg once a day. Thepatient's blood pressure right now is on the lower side, so we will hold onACE inhibitors. The patient also will have echo done in the morning. Wewill provide DVT and GI prophylaxis. We will order morning labs includinglipid profile.For history of alcohol abuse, the patient will be started on CIWA protocol.The patient was recommended to quit smoking.Electronically Signed by:Mansi Brooks M.D. 11/10/2017 02:27 P ____Mansi Brooks M.D.Date Dict: 11/10/2017/04:17 Elizabeth/Mansi Brooks M.D.Date Trans: 11/10/2017 05:07 Elizabeth/Smiley_JN:[id number] Normal [facility] LIPID PROFILEon 11-10-2017 Cholesterol 201 mg/dL High 120-200 [facility] Comment on above: Order Comment: Yes: Add to Previous draw if able Result Comment: CHOL ESTEROL REFERENCE RANGE:20 YEARS AND OLDER CARDIOVASCULAR RISKLess than 200 mg/dl Low [id number] to 239 mg/dl Borderline Nhjq504 mg/dl and greater High Risk Performed By: #### 4 1586, 15586, 27898, 15708, 98830 ####[facility] Cholesterol to HDL Ratio 4.9 {ratio} High .0-4.5 [facility] Comment on above: Order Comment: Yes: Add to Previous draw if able Performed By: #### 4 6413, 08037, 28255, 04290, 11723 ####[facility] HDL Cholesterol 41 mg/dL Normal 23-92 [facility] Comment on above: Order Comment: Yes: Add to Previous draw if able Result Comment: Slig ht variation in normal range could be due to gender and/or age.HDL CHOLESTEROL REFERENCE RANGE:20 years and older Cardiovascular Risk> or =60 mg/dL Molkilffg13 TO 59 mg/dL Low Risk<40 mg/dL High Risk Performed By: #### 4 6413, 21701, 21471, 32973, 96727 ####[facility] LDL Cholesterol 12 mg/dL Normal 0-130 [facility] Comment on above: Order Comment: Yes: Add to Previous draw if able Result Comment: LDL IS A CALCULATIONLDL IS ONLY VALID IF THE TRIG IS LESS THAN 400. Performed By: #### 4 6413, 02037, 78315, 56217, 08675 ####[facility] NON-HDL CHOLESTEROL 160 mg/dL Normal [facility] Comment on above: Order Comment: Yes: Add to Previous draw if able Performed By: #### 4 6413, 45460, 02445, 46186, 81120 ####[facility] [place] [address], [facility] Triglyceride 740 mg/dL High 40-149 [facility] Comment on above: Order Comment: Yes: Add to Previous draw if able Result Comment: TRIG LYCERIDE REFERENCE RANGE:20 YEARS AND OLDER CARDIOVASCULAR RISKLESS THAN 150 mg/dl LOW [id number] TO 199 mg/dl BORDERLINE [id number] mg/dl AND GREATER HIGH RISK Performed By: #### 4 6413, 18294, 10649, 14195, 06690 ####[facility] VLDL CHOL 148 mg/dL High 0-40 [facility] Comment on above: Order Comment: Yes: Add to Previous draw if able Performed By: #### 4 6413, 70987, 20383, 03219, 36824 ####[facility] MAGNESIUM BLOODon 11-10-2017 Magnesium 2.0 mg/dL Normal 1.9-2.7 [facility] Comment on above: Order Comment: No: D o not add to previous draw Performed By: #### 4 6413, 34763, 40062, 75926, 17125 ####[facility] PHOSPHORUS BLOODon 8 Phosphate 3.5 mg/dL Normal 2.5-5.0 [facility] Comment on above: Order Comment: No: D o not add to previous draw Performed By: #### 4 6413, 20343, 11773, 31260, 30103 ####[facility] [facility] PROTHROMBIN TIMEon 8 INR Coag RelTime (PPP) 1.07 {INR} Normal 0.91-1.16 [facility] Comment on above: Order Comment: Yes: Add to Previous draw if able Result Comment: ACCC P RECOMMENDED INR FOR WARFARIN THERAPY CONDITION INRPROPHYLAXIS OF VENOUS THROMBOSIS 2-3(HIGH-RISK SURGERY)TREATMENT OF VENOUS THROMBOSIS 2-3TREATMENT OF PULMONARY EMBOLISM 2-3PREVENTION OF SYSTEMIC EMBOLISM: 2-3 ACUTE MYOCARDIAL INFARCTION TISSUE HEART VALVES VALVULAR HEART DISEASE ATRIAL FIBRILLATION RECURRENT SYSTEMIC EMBOLISMMECHANICAL HEART VALVE 2.5-3.5 FROM: ORAL ANTICOAGULANTS. MECHANISM OF ACTION, CLINICALEFFECTIVENESS, AND OPTIMAL THERAPEUTIC RANGE. [id number]-246S. Performed By: #### 5 6101 ####[facility] Prothrombin time (PT) Coag time (PPP) 13.9 s Normal 12.3-14.8 [facility] Comment on above: Order Comment: Yes: Add to Previous draw if able Result Comment: ALL RESULTS MUST BE INTERPRETED WITH RESPECT TO BLOOD DRAWING ARTIFACTOR DILUTION ERROR OF ANTICOAGULANT AT THE TIME OF SAMPLING. Performed By: #### 5 6101 ####[facility] [facility].[address] TROPONIN-Ion 11-10-2017 Troponin I.cardiac mass conc 2.25 ng/mL Critically high 0.00-0.04 [facility] Comment on above: Result Comment: M-CR ITICAL RESULT(S) REVIEWED, CALLED TO AND READ BACK BY SANTOS HADLEY @ 1122REFERENCE RANGES: 0.00 - 0.04 ng/ml NORMAL 0.05 - 0.50 ng/ml INDETERMINATE > 0.50 ng/ml CONSISTENT WITH AN M.I. Performed By: #### 4 6413, 03616, 05203, 51412, 89884 ####[facility] Vital Signs Date Time Vital Sign Value Performing Clinician Facility 07-17-2023 14:48-0500 Blood Pressure Location Aaron KELSEY [facility] 07-17-2023 14:48-0500 Diastolic blood pressure 64 mm[Hg] Aaron KELSEY [facility] 07-17-2023 14:48-0500 Heart rate 64 /min Aaron NILL [facility] 07-17-2023 14:48-0500 Respiratory rate 16 /min Aaron TRISTANL [facility] 07-17-2023 14:48-0500 Systolic blood pressure 116 mm[Hg] Aaron TRISTANL [facility] 06-17-2023 10:53-0500 Body height 167.6 cm Portillo Ludwig MD Work Phone: [facility] 06-17-2023 10:53-0500 Body mass index (BMI) [Ratio] 23.89 kg/m2 Portillo Ludwig MD Work Phone: [facility] 06-17-2023 10:53-0500 Body weight 67.13 kg Portillo Ludwig MD Work Phone: [facility] 06-17-2023 10:53-0500 Diastolic blood pressure 92 mm[Hg] Portillo Ludwig MD Work Phone: [facility] 06-17-2023 10:53-0500 Systolic blood pressure 145 mm[Hg] Portillo Ludwig MD Work Phone: [facility] 02-19-2023 13:16-0400 Heart rate 76 /min Portillo Ludwig [facility] 02-19-2023 13:16-0400 SaO2% (BldA) [Mass fraction] 94 % Portillo Ludwig [facility] 02-19-2023 13:16-0400 Respiratory rate 16 /min Portillo Ludwig [facility] 02-19-2023 13:15-0400 Blood Pressure Location Portillo Timmis [facility] 02-19-2023 13:15-0400 Diastolic blood pressure 68 mm[Hg] Portillo Timmis [facility] 02-19-2023 13:15-0400 Mean blood pressure 82 mm[Hg] Portillo Timmis [facility] 02-19-2023 13:15-0400 Systolic blood pressure 110 mm[Hg] Portillo Timmis [facility] 02-19-2023 13:15-0400 Body temperature 97.7 [degF] Portillo Timmis [facility] 02-19-2023 12:32-0400 Heart rate 69 /min Portillo Timmis [facility] 02-19-2023 12:32-0400 SaO2% (BldA) [Mass fraction] 95 % Portillo Timmis [facility] 02-19-2023 12:31-0400 Diastolic blood pressure 69 mm[Hg] Portillo Timmis [facility] 02-19-2023 12:31-0400 Mean blood pressure 82 mm[Hg] Portillo Timmis [facility] 02-19-2023 12:31-0400 Systolic blood pressure 108 mm[Hg] Portillo Timmis [facility] 02-19-2023 12:31-0400 Respiratory rate 14 /min Portillo Timmis [facility] 02-19-2023 12:25-0400 Blood Pressure Location Portillo Timmis [facility] 02-19-2023 12:25-0400 Body temperature 97.88 [degF] Portillo Timmis [facility] 02-19-2023 12:25-0400 Diastolic blood pressure 75 mm[Hg] Portillo Timmis [facility] 02-19-2023 12:25-0400 Heart rate 72 /min Portillo Timmis [facility] 02-19-2023 12:25-0400 Mean blood pressure 85 mm[Hg] Portillo Timmis [facility] 02-19-2023 12:25-0400 Respiratory rate 22 /min Portillo Timmis [facility] 02-19-2023 12:25-0400 SaO2% (BldA) [Mass fraction] 95 % Portillo Timmis [facility] 02-19-2023 12:25-0400 Systolic blood pressure 106 mm[Hg] Portillo Timmis [facility] 02-19-2023 12:10-0400 Blood Pressure Location Portillo Timmis [facility] 02-19-2023 12:10-0400 Mean blood pressure 90 mm[Hg] Portillo Timmis [facility] 02-19-2023 12:10-0400 Respiratory rate 24 /min Portillo Timmis [facility] 02-19-2023 12:05-0400 Mean blood pressure 86 mm[Hg] Portillo Timmis [facility] 02-19-2023 12:05-0400 Respiratory rate 25 /min Portillo Timmis [facility] 02-19-2023 11:58-0400 Body temperature 98.06 [degF] Portillo Timmis [facility] 02-19-2023 11:55-0400 FIO2 100 % Portillo Timmis [facility] 02-19-2023 11:55-0400 Respiratory rate 13 /min Portillo Timmis [facility] 02-19-2023 11:50-0400 FIO2 100 % Portillo Timmis [facility] 02-19-2023 11:45-0400 FIO2 60 % Portillo Timmis [facility] 02-19-2023 09:13-0400 Heart rate 80 /min Portillo Timmis [facility] 02-19-2023 09:03-0400 Mean blood pressure 102 mm[Hg] Portillo Timmis [facility] 02-19-2023 09:01-0400 Body temperature 97.16 [degF] Portillo Timmis [facility] 01-25-2023 11:09-0400 Body temperature 97.59 [degF] Dylan Zaidi MD Work Phone: [facility] [employer] 01-25-2023 11:09-0400 Diastolic blood pressure 91 mm[Hg] Dylan Zaidi MD Work Phone: [email or web address] 01-25-2023 11:09-0400 Heart rate 70 /min Dylan Zaidi MD Work Phone: [facility] 01-25-2023 11:09-0400 Respiratory rate 16 /min Dylan Zaidi MD Work Phone: [email or web address] 01-25-2023 11:09-0400 SaO2% (BldA) [Mass fraction] 96 % Dylan Zaidi MD Work Phone: [facility] [employer] 01-25-2023 11:09-0400 Systolic blood pressure 155 mm[Hg] Dylan Zaidi MD Work Phone: [facility] 10-22-2022 14:01-0400 Blood Pressure Location Aaron NILL [facility] 10-22-2022 14:01-0400 Diastolic blood pressure 64 mm[Hg] Aaron NILL [facility] 10-22-2022 14:01-0400 Heart rate 80 /min Aaron NILL [facility] 10-22-2022 14:01-0400 Respiratory rate 16 /min Aaron NILL [facility] 10-22-2022 14:01-0400 Systolic blood pressure 116 mm[Hg] Aaron NILL [facility] 01-21-2022 15:43-0400 Blood Pressure Location Aaron NILL [facility] 01-21-2022 15:43-0400 Diastolic blood pressure 88 mm[Hg] Aaron NILL [facility] 01-21-2022 15:43-0400 Heart rate 72 /min Aaron NILL [facility] 01-21-2022 15:43-0400 Respiratory rate 16 /min Aaron NILL [facility] 01-21-2022 15:43-0400 Systolic blood pressure 132 mm[Hg] Aaron NILL [facility] 11-08-2021 14:46-0400 Blood Pressure Location Aaron NILL [facility] 11-08-2021 14:46-0400 Diastolic blood pressure 86 mm[Hg] Aaron NILL [facility] 11-08-2021 14:46-0400 Heart rate 76 /min Aaron NILL [facility] 11-08-2021 14:46-0400 Respiratory rate 16 /min Aaron KELSEY [facility] 11-08-2021 14:46-0400 Systolic blood pressure 142 mm[Hg] Aaron KELSEY [facility] 07-11-2021 11:45-0500 Heart rate 78 /min David Robbins [facility] [employer] 07-11-2021 11:45-0500 Respiratory rate 16 /min Davidjoseph Robbins [facility] 07-11-2021 11:40-0500 Diastolic blood pressure 76 mm[Hg] Davidjoseph Robbins [facility] 07-11-2021 11:40-0500 SaO2% (BldA) [Mass fraction] 95 % Davidjoseph Robbins [facility] [employer] 07-11-2021 11:40-0500 Systolic blood pressure 125 mm[Hg] Davidjoseph Robbins [facility] [employer] 07-11-2021 07:29-0500 Body temperature 97.59 [degF] Davidjoseph Robbins [facility] [employer] 07-10-2021 08:53-0500 Body height 167.6 cm Norbert Neff MD Work Phone: [facility] [employer] 07-10-2021 07:08-0500 Body temperature 97.59 [degF] Norbert Neff MD Work Phone: [facility] [employer] 07-10-2021 07:08-0500 Diastolic blood pressure 78 mm[Hg] Norbert Neff MD Work Phone: [facility] 07-10-2021 07:08-0500 Heart rate 65 /min Norbert Neff MD Work Phone: [facility] [employer] 07-10-2021 07:08-0500 Respiratory rate 20 /min Norbert Neff MD Work Phone: [facility] [employer] 07-10-2021 07:08-0500 SaO2% (BldA) [Mass fraction] 94 % Norbert Neff MD Work Phone: [facility] 07-10-2021 07:08-0500 Systolic blood pressure 115 mm[Hg] Norbert Neff MD Work Phone: [facility] 07-05-2021 11:40-0500 Body mass index (BMI) [Ratio] 21.79 kg/m2 Norbert Neff MD Work Phone: [facility] 07-05-2021 11:40-0500 Body weight 61.24 kg Norbert Neff MD Work Phone: [facility] Encounters Encounter Date Encounter Type Care Provider Facility Start: 08-24-2023 End: 08-27-2023 ambulatory [facility]YLAN [facility] Start: 07-17-2023 End: 07-18-2023 ambulatory Aaron KELSEY Facility: [facility] Start: 07-17-2023 End: 07-17-2023 Patient encounter procedure Aaron KELSEY General Surgery [facility] Start: 07-03-2023 End: 07-03-2023 ambulatory [facility] Start: 07-03-2023 End: 07-03-2023 Encounter for other preprocedural examination [facility] Start: 06-17-2023 End: 06-17-2023 ambulatory PORTILLO LUDWIG Not Available Start: 06-17-2023 End: 06-17-2023 Office outpatient visit 15 minutes Portillo Ludwig MD Work Phone: [facility] Comment on above: 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); Left-sided tinnitus Start: 06-10-2023 End: 06-10-2023 ambulatory GUILLE ABRAHAM Not Available Start: 04-08-2023 End: 04-08-2023 ambulatory PORTILLO LUDWIG Not Available Start: 02-19-2023 End: 02-19-2023 ambulatory Portillo Ludwig [facility] Start: 02-19-2023 End: 02-19-2023 Admission to same day surgery center Portillo Ludwig [facility] Start: 02-17-2023 End: 02-18-2023 ambulatory Portillo Ludwig [facility] Start: 01-30-2023 End: 01-30-2023 ambulatory [facility] Start: 01-25-2023 End: 01-25-2023 Emergency department patient visit DYLAN Marcelino [facility] Start: 01-25-2023 End: 01-25-2023 Emergency department patient visit Dylan Zaidi MD Work Phone: [facility] ED Comment on above: Intermittent chest p ain (Primary Dx); History of epistaxis Start: 12-31-2022 End: 12-31-2022 ambulatory [facility] Start: 12-12-2022 End: 12-12-2022 ambulatory YASMINE CROWELL [facility] Start: 10-22-2022 End: 10-23-2022 ambulatory Aaron KELSEY Facility: [facility] Start: 10-22-2022 End: 10-22-2022 Patient encounter procedure Aaron KELSEY General Surgery Nill/Said [facility] Start: 02-20-2022 End: 02-22-2022 Subsequent hospital visit by physician Dylan Zaidi MD Work Phone: [facility] Start: 01-21-2022 End: 01-21-2022 Patient encounter procedure Aaron R LOW General Surgery N[facility]/Said [facility] Start: 12-18-2021 End: 12-19-2021 ambulatory CAM FORREST Facility:[facility] Start: 12-16-2021 End: 12-17-2021 [facility] Facility: Start: 11-08-2021 End: 11-08-2021 Patient encounter procedure Aaron White LOW General Surgery Nill/Said [facility] Start: 08-20-2021 End: 08-22-2021 Subsequent hospital visit by physician Svetlana Austin Dr Room 4 [facility] Radiology Comment on above: Ureteral stone Start: 07-29-2021 End: 07-31-2021 Subsequent hospital visit by physician Svetlana Cat Scan Room [facility] Laboratory Comment on above: Renal colic; LLQ pain; Incomplete bladder emptying Start: 07-18-2021 End: 07-18-[address] SUSAN BOYLE Facility:[facility] Start: 07-16-2021 End: 07-16-2021 Subsequent hospital visit by physician Dylan Zaidi MD Work Phone: [facility] Laboratory Comment on above: Ureteral stone; Nausea; Decreased appetite Start: 07-11-2021 End: 07-11-2021 Emergency department patient visit David Robbins DO [facility] ED Comment on above: Left lower quadrant abdominal pain (Primary Dx); Urinary tract infection with hematuria, site unspecified; Ureteral calculus Start: 07-09-2021 End: 07-10-2021 Subsequent hospital visit by physician Norbert Neff MD Work Phone: [facility] Start: 07-05-2021 End: 07-09-2021 Patient encounter status [facility] Schedule [facility] PRE ADMIT Start: 07-05-2021 End: 07-09-2021 Subsequent hospital visit by physician Svetlana Betts19 Pat Screening Schedule [facility] PRE ADMIT Comment on above: Preop testing Start: 06-25-2021 End: 06-26-2021 ambulatory HARISH Emanuel Facility:[facility] Start: 06-22-2021 End: 06-23-2021 ambulatory WARNER TRIPP Facility:[facility] Start: 05-23-2021 End: 05-24-2021 ambulatory NELLY WALTERS Facility:[facility] Start: 04-19-2021 End: 04-19-2021 ambulatory NELLY WALTERS Facility:[facility] Start: 04-13-2021 End: 04-13-[address] DYLAN ZAIDI Facility:[facility] Start: 01-02-2021 ambulatory YASMINE CROWELL Facility:[facility] Start: 11-17-2017 End: 11-18-2017 Patient encounter DEFAULT PHYSICIAN Facility:[facility] Start: 11-10-2017 End: 11-11-2017 Evaluation and management of inpatient YASMINE AMARAL Facility:[facility] Procedures Date Procedure Procedure Detail Performing Clinician Start: 02-19-2023 Nasal cautery Portillo Ti mmis Start: 01-25-2023 Comprehensive metabo lic panel Jermain PEREZ-Jose Alejandro Work Phone: Start: 01-25-2023 Ecg routine ecg w/le ast 12 lds w/i&r Jermain PEREZ-C Work Phone: Start: 01-25-2023 Radiologic exam ches t single view Jermain PEREZ-C Work Phone: Start: 08-20-2021 Radiologic exam abdo men 1 view Dolly Harrell Parsell REGULATOR MECHANIC - REINSURANCE ACCOUNTANT Work Phone: Start: 07-29-2021 Ct abdomen & pelvis w/o contrast material Dolly W Parsell REGULATOR MECHANIC - REINSURANCE ACCOUNTANT Work Phone: Start: 07-29-2021 Basic metabolic pane l calcium total Dolly W Parsell REGULATOR MECHANIC - REINSURANCE ACCOUNTANT Work Phone: Start: 07-16-2021 Basic metabolic pane l calcium total Dolly W Parsell REGULATOR MECHANIC - REINSURANCE ACCOUNTANT Work Phone: Start: 07-11-2021 Ct abdomen & pelvis w/o contrast material David Robbins DO Start: 07-11-2021 Urinalysis microscopic only David Rosendo DO Start: 07-11-2021 Urnls dip stick/tabl et rgnt auto w/o microscopy David Robbins DO Start: 07-11-2021 BASIC METABOLIC PANE L W/ REFLEX TO MG FOR LOW K David Robbins DO Start: 07-11-2021 Blood count complete auto&auto difrntl wbc David Rosendo DO Start: 07-10-2021 Basic metabolic pane l calcium total Norbert Neff MD Work Phone: Start: 07-09-2021 Fluoroscopy during operation Norbert Neff MD Work Phone: Start: 07-09-2021 End: 07-09-2021 Cysto/uretero w/lithotripsy &indwell stent insrt Norbert Neff MD Work Phone: Start: 07-05-2021 COVID-19 Wayne laguerre MD Work Phone: Start: 11-10-2017 DILATION OF 1 COR AR T WITH DRUG-ELUT INTRA, PERC APPROACH MICHELLE PULLIAM Start: 03-05-2017 Cystoscopic removal of ureteric stent Aaron KELSEY Start: 02-23-2017 Cystoscope, device (physical object) Aaron KELSEY Start: 02-16-2017 Cystoscope, device (physical object) Aaron TRISTANL Insertion of renal a rtery stent Aaron KELSEY Lithotripsy Aaron KELSEY Nasal cautery Aaron TRISTANL Placement of stent i n cardiac conduit Aaron KELSEY Plan of Treatment Date Care Activity Detail Author Start: 08-26-2023 End: 08-26-2023 Patient encounter procedure 08/26/2023 10:30 AM EDT Office Visit [facility] [address] [id number] 1 year PSA, KUB [facility] Comment on above: 1 year PSA, KUB Start: 12-09-2022 Influenza vaccination Flu vaccine (# 1) [facility] Start: 08-25-2022 End: 08-25-2022 Patient encounter procedure 08/25[facility]22 [facility] Start[facility] 07-29-2022 [facility] Start: 07-29-2022 Potassium monitoring Potassium monit [facility] Start: 07-16-2022 Creatinine measurement Creatinine mo [facility] Start: 07-16-2022 Potassium monitoring Potassium monit [facility] Start: 07-11-2022 Creatinine measurement Creatinine mo [facility] Start: 07-11-2022 Potassium monitoring Potassium monit [facility] Start: 07-10-2022 Creatinine measurement Creatinine mo [facility] Start: 07-10-2022 Potassium monitoring Potassium monit [facility] Start: 02-21-2022 End: 02-21-2022 Patient encounter procedure 02/21/2022 Office Visit Urology Norbert Neff MD [address] [place], [place] [id number] [facility] Start: 01-09-2022 Influenza vaccination Flu vacc ine (Season Ended) [facility] Start: 12-09-2021 Influenza vaccination Flu vaccine (# 1) [facility] Start: 08-22-2021 End: 08-22-2021 Patient encounter procedure 08/22/2021 Office Visit Urology Norbert Neff MD [address], [address] [place], [place] [id number] [facility] Start: 07-11-2021 End: 07-11-2021 Patient encounter procedure 07/11/2021 Office Visit Urology Dolly Lopez, REGULATOR MECHANIC - REINSURANCE ACCOUNTANT [address] [facility] [address] [place] [id number] [facility] Start: 07-05-2021 Annual Wellness Visi t (AWV) Annual Wellness Visit (AWV) [facility] Start: 01-09-2021 Influenza vaccination Flu vaccine (# 1) [facility] Start: 10-15-2019 DTaP/Tdap/Td vaccine (1 - Tdap) DTaP/Tdap/Td vaccine (1 - Tdap) [facility] Start: 2019 Pneumococcal 65+ yea rs Vaccine (1 of 1 - PPSV23) Pneumococcal 65+ years Vaccine (1 of 1 - PPSV23) [facility] Start: 02-06-2004 Shingles Vaccine (1 of 2) Shingles Vaccine (1 of 2) [facility] Start: 1999 Screening for malign ant neoplasm of colon [facility] Start: 1973 DTaP/Tdap/Td vaccine (1 - Tdap) DTaP/Tdap/Td vaccine (1 - Tdap) [facility] Start: 02-06-1972 Hepatitis C [facility] Start: 1966 Depression Screen Depression Screen [facility] Start: 02-06-1964 Lipid panel [facility] Start: 02-06-1960 Pneumococcal 65+ yea rs Vaccine (1 - PCV) Pneumococcal 65+ years Vaccine (1 - PCV) [facility] Start: 1959 COVID-19 Vaccine (1) COVID-19 Vaccin e (1) [facility] [employer] Start: 1954 COVID-19 Vaccine (#1) COVID-19 Vacci ne (#1) [email or web address]: [facility] Creatinine [facility] mo [facility]itoring [facility] Start: 1954 Hepatitis C screening Hepatitis C [facility] Start: 1954 Potassium monitoring Potassium monit [facility] CT ABDOMEN PELVIS WO CONTRAST Additional Contrast? None CT ABDOMEN PELVIS WO CONTRAST Additional Contrast? None Imaging STAT 07/11/2021 9:16 AM EST [facility] Phone: End: 07-16-2021 Culture, Urine [facility] Comment on above: 1 Occurrences starti ng 07/16/2021 until 07/16/2021 End: 07-29-2021 Culture, Urine [facility]: Comment on above: 1 Occurrences starti ng 07/29/2021 until 07/29/2021 EKG 12 Lead EKG 12 Lead ECG STAT 01/25/2023 12:13 PM EDT [facility] [employer] Oxygen therapy [[facility]] Initiate Oxygen Therapy Protocol Respiratory Care Routine As Needed until discontinued starting 07/09/2021 [facility] Work Phone: Comment on above: As Needed until disc ontinued starting 07/09/2021 Immunizations Immunization Date Immunization Notes Care Provider eMlissa lord NEGATED: Highlighted row has not occurred!07-17-2023 influenza virus vaccine, unspecified formulation Aaron KELSEY [facility] Payers Date Payer Category Payer Medicare A[employer]NA MEDICARE A DVANTAGE AETNA MEDICARE REPLACEMENT [id number] 2021-Present [address] [place] [address] [id number] 1960 Medicare [id number] 1959 Self-pay 1959 Unknown [id number] 1954 Unknown [id number] [id number]3 1954 Unknown [id number] 2.16.840.1.922500.3.579.2.593 1954 Unknown [id number] 2.16.840.1.648480.3.579.2.593 1954 Unknown [id number] 2.16.840.1.090523.3.579.2.593 1954 Unknown [id number] 2.16.840.1.586302.3.579.2.593 1954 Unknown [id number] 2.16.840.1.060870.3.579.2.593 1954 Unknown [id number] 2.16.840.1.193071.3.579.2.593 1954 Unknown [id number] 2.16.840.1.336073.3.579.2.593 1954 Unknown [id number] 2.16.840.1.783464.3.579.2.593 1954 Unknown [id number] 2.16.840.1.399120.3.579.2.1259 1954 Unknown [id number] 2.16.840.1.850450.3.579.2.1259 1954 Unknown [id number] 2.16.840.1.963623.3.579.2.1259 1954 Unknown [id number] 2.16.840.1.961596.3.579.2.727 1954 Unknown [id number] 2.16.840.1.807432.3.579.2.727 1954 Unknown [id number] 2.16.840.1.658988.3.579.2.727 1954 Unknown [id number] 2.16.840.1.640989.3.579.2.727 1954 Unknown [id number] 2.16.840.1.918075.3.579.2.173 1954 Unknown [id number] 2.16.840.1.799860.3.579.2.173 1954 Unknown [id number] 2.16.840.1.482246.3.579.2.173 1954 Unknown [id number] 2.16.840.1.422055.3.579.2.173 Unknown Social History Date Type Detail Facility Start: 05-11-1969 End: 02-10-2023 Tobacco smoking status [facility] Smokes tobacco daily [facility] Start: 05-11-1969 History of tobacco use Cigarette Smo ker [facility] Phone: Start: 07-05-2021 End: 04-08-2023 Cigarettes smoked current (pack per day) - Reported 1 [facility] Phone: Start: 07-05-2021 End: 02-10-2023 Tobacco use and exposure Smokeless tobacco non-user [facility] Phone: Start: 07-09-2021 End: 06-17-2023 Alcohol intake Current drinker of alcohol (finding) [facility] Phone: Start: 07-05-2021 History SDOH Alcohol Comment daily [facility] Phone: Start: 1955 Sex Assigned At Not on file [employer] Work Phone: Start: 06-11-2021 End: 07-11-2021 Exposure to SARS-CoV-2 (event) Not sure [facility] Phone: Start: 11-08-2021 End: 10-22-2022 Tobacco smoking status Heavy tobacco smoker (finding) [facility] Tobacco smoking status Former sm okeless tobacco user, quit more than 30 days ago [facility] Start: 02-21-2022 End: 04-08-2023 Sex Assigned At Male [facility] [employer] Procedure Code Equipment Code Equipment Origin al Text Equipment Identifier Dates Stent Uret 6 Frx 26 Cm [employer] - [id number] Start: 07-09-2021 Functional Status Date Assessment Result Facility 07-17-2023 Functional Status N/A [facility] 10-22-2022 Functional Status N/A [facility] N/A [facility] 11-08-2021 Functional Status N/A [facility] Clinical Notes 06-23-2021 to 07-03-2023 Portillo Ludwig MD - 06/17/2023 11:10 AM Ferdinand Mott RN - 01/25/2023 1:17 PM Clive Mott RN - 01/25/2023 12:43 PM Mahamed Moses RN - 07/10/2021 4:07 PM ESTInstructionsAttachments Note Date & Type Note Facility 07-03-2023 Note Patient here for 6 m o follow up CAD, chest pain, HTN, and HLD. He also needs cleared for hernia surgery with Dr. Kelsey. Still gets intermittent chest pain and SOB w/wo exertion. Had stress and echo back in Jan 2023. [facility] 07-03-2023 Note [facility] CARDIOLOGY PROGR ESS NOTE HPI: Ronnell Peres is a 68 y.o. male With a past medical history including hypertension, hyperlipidemia, CAD, and angioedema. Patient presents to cardiac clinic today for follow-up. Overall, patient is doing well. He continues to have rare episodes of atypical chest pain. Chest pain occurs mostly at rest and does not worsen with exertion. No change in breathing. No additional complaints or concerns. Review of Systems 10 point ROS was performed and was negative unless otherwise specified in HPI Visit Vitals BP 129/81 (BP Location: Right arm, Patient Position: Sitting) Pulse 96 Ht 1.676 m (5' 6 ) Wt 66.2 kg (146 lb) SpO2 95% BMI 23.57 kg/m??? Smoking Status Every Day BSA 1.76 m??? Allergies Allergen Reactions Lisinopril Angioedema Medications: Current Outpatient Medications on File Prior to Visit Medication Sig Dispense Refill amLODIPine (Norvasc) 5 mg tablet Take 1 tablet (5 mg) by mouth in the morning. 90 tablet 3 aspirin 81 mg EC tablet Take 1 tablet by mouth in the morning. clopidogrel (Plavix) 75 mg tablet Take 1 tablet (75 mg) by mouth once daily as directed. 90 tablet 3 doxepin (SINEquan) 10 mg capsule TAKE 1 CAPSULE BY MOUTH THREE TIMES DAILY NEEDED FOR ANXIETY for 30 days metoprolol succinate XL (Toprol-XL) 25 mg 24 hr tablet Take 0.5 tablets (12.5 mg) by mouth in the morning. Do not crush or chew. 45 tablet 3 nitroglycerin (Nitrostat) 0.[address] 1 tablet (0.4 mg) under the tongue every 5 (five) minutes if needed for chest pain. 25 tablet 3 rosuvastatin (Crestor) 40 mg tablet Take 1 tablet (40 mg) by mouth at bedtime. 90 tablet 3 tamsulosin (Flomax) 0.4 mg 24 hr capsule Take 0.4 mg by mouth in the morning. [DISCONTINUED] isosorbide mononitrate ER (Imdur) 30 mg 24 hr tablet Take 1 tablet (30 mg) by mouth in the morning. Do not crush or chew. 30 tablet 11 buPROPion SR (Wellbutrin SR) 150 mg 12 hr tablet Take 1 tablet (150 mg) by mouth in the morning and at bedtime. Do not crush, chew, or split. (Patient not taking: Reported on 07/03/2023) 60 tablet 1 hydrOXYzine HCL (Atarax) 25 mg tablet Take 1 tablet by mouth in the morning, noon, at afternoon, at bedtime,. No current facility-administered medications on file prior to visit. Physical Exam: Constitutional: Appearance: Normal appearance. Without apparent distress HENT: Head: Normocephalic and atraumatic. Nose: Nose normal. Mouth/Throat: Mouth: Mucous membranes are moist. Eyes: Extraocular Movements: Extraocular movements intact. Conjunctiva/sclera: Conjunctivae normal. Neck: Vascular: No JVD. Cardiovascular: Rate and Rhythm: Normal rate and regular rhythm. Pulses: Dorsalis pedis pulses are 3 on the right side and 3on the left side. Posterior tibial pulses are 3 on the right side and 3 on the left side. Heart sounds: Normal heart sounds, S1 normal and S2 normal. Pulmonary: Effort: Pulmonary effort is normal. Breath sounds: Normal breath sounds. Abdominal: General: Bowel sounds are normal. Palpations: Abdomen is soft. Musculoskeletal: General: Normal range of motion. Cervical back: Normal range of motion. Right lower leg: No edema. Left lower leg: No edema. Skin: General: Skin is warm and dry. Capillary Refill: Capillary refill takes less than 2 seconds. Neurological: General: No focal deficit present. Mental Status: She is alert and oriented to person, place, and time. Psychiatric: Mood and Affect: Mood normal. Behavior: Behavior normal. Thought Content: Thought content normal. Judgment: Judgment normal. Labs: Reviewed and stable Last lab values have been reviewed A/p: CAD, No reversible ischemia on stress test Chest pain, Atypical, it is sharp and fleeting in nature, occurs mostly at rest HTN HLD Alcohol Abuse Perioperative risk stratification Plan: -Continue aspirin, Plavix, rosuvastatin, metoprolol for CAD -Patient is On DAPT and wishes to maintain DAPT. Understands risks of bleeding. -Continue amlodipine, Toprol for hypertension -Continue rosuvastatin for hyperlipidemia -Optimize medical management -Aggressive risk factor modification -I again counseled the patient on the importance of alcohol cessaiton. He voices understanding. -Patient denies any angina or anginal equivalents. He has occasional atypical chest pain, with negative perfusion scan in 01/2023. No signs/symptoms of decompensated heart failure or ACS. Patient reports being able to complete greater than 4 METS of activity without any cardiac symptoms. Patient is moderate risk for surgery. May proceed without additional cardiac testing at this time. -Plan of care discussed with patient. All questions were answered. Patient voices understanding and is agreeable with current plan. -Patient was educated on red flag symptoms. Strict return precautions were provided. Patient verbalizes understanding -Follow-up in cardiology (more content not included)... [facility] 06-17-2023 History of Present illness Narrative Subjective Patient ID: Ronnell Peres is a 68 y.o. male who presents for Hearing Loss (Follow up audio 06/10/23). Audio shows asymmetric left SNHL. Pt also has left tinnitus. No asymmetric noise exposure Review of Systems All other systems reviewed and are negative. Family History Problem Relation Name Age of Onset Heart failure Mother Cirrhosis Father Active Ambulatory Problems Diagnosis Date Noted Alcohol abuse 12/12/2022 Angioedema 12/12/2022 Anticoagulated 12/12/2022 Antiplatelet or antithrombotic long-term use 12/12/2022 Anxiety 12/12/2022 Benign essential HTN (CMS/HCC) 06/13/2022 BPH with obstruction/lower urinary tract symptoms 07/29/2021 Calculus of kidney 07/09/2021 Chest pain 09/28/2018 Chronic obstructive pulmonary disease (CMS/HCC) 02/10/2023 Pulmonary emphysema (CMS/HCC) 12/21/2020 Coronary arteriosclerosis (CMS/HCC) 09/28/2018 Dyspnea on exertion 12/06/2021 Epistaxis, recurrent 07/25/2021 Acid reflux 09/28/2018 GERD (gastroesophageal reflux disease) 02/10/2023 Hydronephrosis 12/12/2022 Hyperglycemia 12/12/2022 Hyperlipidemia (CMS/HCC) 12/12/2022 Hypertension (CMS/[facility]) 01/30/2023 Inguinal hernia 12/12/2022 Mixed dyslipidemia ([facility]) 06/13/2022 Myocardial infarction ([facility]) 11/17/2017 Porokeratosis 12/12/2022 Tobacco user 09/28/2018 Internal nasal lesion 02/11/2023 DNS (deviated nasal septum) 02/11/2023 Resolved Ambulatory Problems Diagnosis Date Noted History of kidney stones 02/10/2023 History of myocardial infarction ([facility]) 12/12/2022 Smoker 02/10/2023 Past Medical History: Diagnosis Date H/O of nasal cauterization 2020 Past Surgical History: Procedure Laterality Date OTHER SURGICAL HISTORY r/o kidney stones OTHER SURGICAL HISTORY cardiac stents Allergies Allergen Reactions Lisinopril Angioedema Current Outpatient Medications on File Prior to Visit Medication Sig Dispense Refill amLODIPine (Norvasc) 5 MG tablet Take 5 mg by mouth in the morning. aspirin 81 MG EC tablet Take 1 tablet by mouth in the morning. buPROPion SR (Wellbutrin SR) 150 MG 12 hr tablet Take 150 mg by mouth in the morning and 150 mg before bedtime. clopidogrel (Plavix) 75 MG tablet Take 75 mg by mouth in the morning. doxepin (SINEquan) 10 MG capsule Take 10 mg by mouth 3 (three) times a day as needed. hydrOXYzine HCl (Atarax) 25 MG tablet Take 25 mg by mouth every 6 (six) hours if needed. metoprolol succinate XL (Toprol-XL) 25 MG 24 hr tablet Take 12.5 mg by mouth in the morning. rosuvastatin (Crestor) 40 MG tablet Take 40 mg by mouth at bedtime. tamsulosin (Flomax) 0.4 MG 24 hr capsule Take 0.4 mg by mouth in the morning. varenicline (Chantix) 1 MG tablet Take 1 mg by mouth. isosorbide mononitrate ER (Imdur) 30 MG 24 hr tablet Take 30 mg by mouth in the morning. No current facility-administered medications on file prior to visit. Objective Last Recorded Vitals Vitals: 06/17/23 1053 BP: (!) 145/92 ENT Physical Exam Constitutional Appearance: patient appears well-developed, well-nourished and well-groomed, Communication/Voice: communication appropriate for developmental age; vocal quality normal; Assessment/Plan Diagnoses and all orders for this visit: Asymmetric SNHL (sensorineural hearing loss) Left-sided tinnitus Left SNHL and tinnitus could be due to an AN. MRI IAC and f/u. Recommend eval for at least a left MIDDLETON. documented in this encounter [facility] 02-19-2023 Hospital Discharge instructions Patient Education 02/19/2023 13:06:29 Post Op Patient Instructions - FT (CUSTOM) Follow Up Care 02/17/2023 09:28:50 With:Portillo Ludwig Address:Unknown When: Unknown Comments:As needed [facility] 02-18-2023 Note [id number] [facility] 01-30-2023 Note [facility] CARDIOLOGY PROGR ESS NOTE HPI: Ronnell Peres is a 67 y.o. male With a past medical history including hypertension, hyperlipidemia, CAD, and angioedema. Patient presents to cardiac clinic today for follow-up. Patient states that he is doing much better since he was last seen. He reports that he went to the hospital a week ago for a nosebleed, injuring his ER visit, he briefly mentioned an episode of fleeting chest pain several days before. He states that cardiac work-up was performed and was unremarkable. Today, he states that he is doing well. He has not had any recurrence of chest pain. He denies any shortness of breath. He denies any lower extremity edema, orthopnea, paroxysmal nocturnal dyspnea. Stress test was performed and did not demonstrate any reversible ischemia. Echocardiogram was performed and was unremarkable. Normal EF. No regional wall motion abnormalities Review of Systems 10 point ROS was performed and was negative unless otherwise specified in HPI Visit Vitals BP 133/86 (BP Location: Left arm, Patient Position: Sitting) Pulse 81 Ht 1.676 m (5' 6 ) Wt 65.3 kg (144 lb) SpO2 96% BMI 23.24 kg/m??? Smoking Status Every Day BSA 1.74 m??? Allergies Allergen Reactions Lisinopril Angioedema Medications: Current Outpatient Medications on File Prior to Visit Medication Sig Dispense Refill amLODIPine (Norvasc) 5 mg tablet Take 1 tablet (5 mg) by mouth in the morning. 90 tablet 3 aspirin 81 mg EC tablet Take 1 tablet by mouth in the morning. clopidogrel (Plavix) 75 mg tablet Take 1 tablet (75 mg) by mouth once daily as directed. 90 tablet 3 doxepin (SINEquan) 10 mg capsule TAKE 1 CAPSULE BY MOUTH THREE TIMES DAILY NEEDED FOR ANXIETY for 30 days hydrOXYzine HCL (Atarax) 25 mg tablet Take 1 tablet by mouth in the morning, noon, at afternoon, at bedtime,. isosorbide mononitrate ER (Imdur) 30 mg 24 hr tablet Take 1 tablet (30 mg) by mouth in the morning. Do not crush or chew. 30 tablet 11 metoprolol succinate XL (Toprol-XL) 25 mg 24 hr tablet Take 0.5 tablets (12.5 mg) by mouth in the morning. Do not crush or chew. 45 tablet 3 nitroglycerin (Nitrostat) 0.[address] 1 tablet (0.4 mg) under the tongue every 5 (five) minutes if needed for chest pain. 25 tablet 3 rosuvastatin (Crestor) 40 mg tablet Take 1 tablet (40 mg) by mouth at bedtime. 90 tablet 3 tamsulosin (Flomax) 0.4 mg 24 hr capsule Take 0.4 mg by mouth in the morning. buPROPion SR (Wellbutrin SR) 150 mg 12 hr tablet Take 1 tablet (150 mg) by mouth in the morning and at bedtime. Do not crush, chew, or split. 60 tablet 1 No current facility-administered medications on file prior to visit. Physical Exam: Constitutional: Appearance: Normal appearance. Without apparent distress HENT: Head: Normocephalic and atraumatic. Nose: Nose normal. Mouth/Throat: Mouth: Mucous membranes are moist. Eyes: Extraocular Movements: Extraocular movements intact. Conjunctiva/sclera: Conjunctivae normal. Neck: Vascular: No JVD. Cardiovascular: Rate and Rhythm: Normal rate and regular rhythm. Pulses: Dorsalis pedis pulses are 3 on the right side and 3on the left side. Posterior tibial pulses are 3 on the right side and 3 on the left side. Heart sounds: Normal heart sounds, S1 normal and S2 normal. Pulmonary: Effort: Pulmonary effort is normal. Breath sounds: Normal breath sounds. Abdominal: General: Bowel sounds are normal. Palpations: Abdomen is soft. Musculoskeletal: General: Normal range of motion. Cervical back: Normal range of motion. Right lower leg: No edema. Left lower leg: No edema. Skin: General: Skin is warm and dry. Capillary Refill: Capillary refill takes less than 2 seconds. Neurological: General: No focal deficit present. Mental Status: She is alert and oriented to person, place, and time. Psychiatric: Mood and Affect: Mood normal. Behavior: Behavior normal. Thought Content: Thought content normal. Judgment: Judgment normal. Labs: Reviewed and stable Last lab values have been reviewed A/p: CAD, No reversible ischemia on stress test Chest pain, Atypical, it is sharp and fleeting in nature, occurs mostly at rest HTN HLD Alcohol Abuse Plan: -Continue aspirin, Plavix, rosuvastatin, metoprolol for CAD -Patient is On DAPT and wishes to maintain DAPT despite nosebleed -Continue amlodipine, Toprol for hypertension -Continue rosuvastatin for hyperlipidemia -Optimize medical management -Aggressive risk factor modification -I again counseled the patient on the importance of alcohol cessaiton. He voices understanding. -Plan of care discussed with patient. All questions were answered. Patient voices understanding and is agreeable with current plan. -Patient was educated on red flag symptoms. Strict return precautions were provided. Patient verbalizes understanding -Follow-up in cardiology clinic Thank you for allowing us to parti (more content not included)... [facility] 01-30-2023 Note Patient here for fol low up stress test and echo. He was seen a few days ago in [place] ED for epistaxis and chest pain. Review of Systems Cardiovascular: Positive for chest pain and dyspnea on exertion. Respiratory: Positive for shortness of breath. All other systems reviewed and are negative. [facility] 01-25-2023 History of Present illness Narrative Patient states he would like to go home. Informed Jermain PEREZ at this time. Patient signed AMA form and ambulatory at discharge. Entered room to place IV and obtain blood work. Patient agreeable to blood work but not IV at this time. Patient asking if he needs to stay for results of blood test and asking if he can go ahead and leave. Informed patient that we would like for him to stay and see what lab works results are. Patient states his is waiting in the car and ask what he can do at home if his nose start bleeding again. Informed him he can try ice and pressure and packing. Patient agreeable to stay for now. Notified provider. documented in this encounter [facility] 12-31-2022 Note Patient here c/o alcon st pressure a few days ago. He said he thinks he had a heart attack, but did not seek medication attention. He did not take nitroglycerin. Also felt some sharp pain or electrical shocks down the LUE. This was quick in duration. He felt like crap that whole day. Hilliards better the next day. Has been keeping track of his BP lately. Review of Systems Cardiovascular: Positive for chest pain and dyspnea on exertion. Respiratory: Positive for shortness of breath. All other systems reviewed and are negative. [facility] 12-31-2022 Note [facility] CARDIOLOGY PROGR ESS NOTE HPI: Ronnell Peres is a 67 y.o. male With a past medical history including hypertension, hyperlipidemia, CAD, and angioedema. Patient presents to cardiac clinic today for follow-up, And to discuss episode of chest pain. Patient states over the weekend, he awoke with chest pressure. He notes that he had drank 7-8 beers the night before. He did know there was some radiation of pain into the left arm. Patient did not go to the emergency department. He laid down and it wore off. He denies any associated symptoms. No shortness of breath. No lower extremity edema, orthopnea, paroxysmal nocturnal dyspnea. Of note: Patient had a stress test 1 year ago. No concern for ischemia noted. Review of Systems 10 point ROS was performed and was negative unless otherwise specified in HPI Visit Vitals BP 131/86 (BP Location: Left arm, Patient Position: Sitting) Pulse 97 Ht 1.676 m (5' 6 ) Wt 65.8 kg (145 lb) SpO2 99% BMI 23.40 kg/m??? Smoking Status Every Day BSA 1.75 m??? Allergies Allergen Reactions Lisinopril Angioedema Medications: Current Outpatient Medications on File Prior to Visit Medication Sig Dispense Refill amLODIPine (Norvasc) 5 mg tablet Take 1 tablet (5 mg) by mouth in the morning. 90 tablet 3 aspirin 81 mg EC tablet Take 1 tablet by mouth in the morning. clopidogrel (Plavix) 75 mg tablet Take 1 tablet (75 mg) by mouth once daily as directed. 90 tablet 3 isosorbide mononitrate ER (Imdur) 30 mg 24 hr tablet Take 1 tablet (30 mg) by mouth in the morning. Do not crush or chew. 30 tablet 11 metoprolol succinate XL (Toprol-XL) 25 mg 24 hr tablet Take 0.5 tablets (12.5 mg) by mouth in the morning. Do not crush or chew. 45 tablet 3 nitroglycerin (Nitrostat) 0.[address] 1 tablet (0.4 mg) under the tongue every 5 (five) minutes if needed for chest pain. 25 tablet 3 rosuvastatin (Crestor) 40 mg tablet Take 1 tablet (40 mg) by mouth at bedtime. 90 tablet 3 tamsulosin (Flomax) 0.4 mg 24 hr capsule Take 0.4 mg by mouth in the morning. buPROPion SR (Wellbutrin SR) 150 mg 12 hr tablet Take 1 tablet (150 mg) by mouth in the morning and at bedtime. Do not crush, chew, or split. 60 tablet 1 [DISCONTINUED] varenicline (Chantix) 1 mg tablet Take 1 mg by mouth in the morning. No current facility-administered medications on file prior to visit. Physical Exam: Constitutional: Appearance: Normal appearance. Without apparent distress HENT: Head: Normocephalic and atraumatic. Nose: Nose normal. Mouth/Throat: Mouth: Mucous membranes are moist. Eyes: Extraocular Movements: Extraocular movements intact. Conjunctiva/sclera: Conjunctivae normal. Neck: Vascular: No JVD. Cardiovascular: Rate and Rhythm: Normal rate and regular rhythm. Pulses: Dorsalis pedis pulses are 3 on the right side and 3on the left side. Posterior tibial pulses are 3 on the right side and 3 on the left side. Heart sounds: Normal heart sounds, S1 normal and S2 normal. Pulmonary: Effort: Pulmonary effort is normal. Breath sounds: Normal breath sounds. Abdominal: General: Bowel sounds are normal. Palpations: Abdomen is soft. Musculoskeletal: General: Normal range of motion. Cervical back: Normal range of motion. Right lower leg: No edema. Left lower leg: No edema. Skin: General: Skin is warm and dry. Capillary Refill: Capillary refill takes less than 2 seconds. Neurological: General: No focal deficit present. Mental Status: She is alert and oriented to person, place, and time. Psychiatric: Mood and Affect: Mood normal. Behavior: Behavior normal. Thought Content: Thought content normal. Judgment: Judgment normal. Labs: Reviewed and stable Last lab values have been reviewed A/p: CAD Chest pain HTN HLD Alcohol Abuse Plan: -Continue aspirin, Plavix, rosuvastatin, metoprolol for CAD -Given episode of chest pain and risk factors, will obtain nuclear myocardial perfusion imaging to rule out ischemia -We will obtain echocardiogram to assess EF, valvular function, and wall motion -Continue amlodipine, Toprol for hypertension -Continue rosuvastatin for hyperlipidemia -Optimize medical management -Aggressive risk factor modification -Counseled the patient on the importance of alcohol cessaiton. He voices understanding. -Plan of care discussed with patient. All questions were answered. Patient voices understanding and is agreeable with current plan. -Patient was educated on red flag symptoms. Strict return precautions were provided. Patient verbalizes understanding -Follow-up in cardiology clinic Thank you for allowing us to participate in the care of your patient. Please do not hesitate to contact cardiology with any questions or concerns. Cam Forrest MD [facility] 12-19-2022 Note Staff notified that b/p uncontrolled therefore, amlodipine 5 mg daily ordered Staff to notifiy pt Continue monitoring b/p and pt to call office b/p remains above 130/80 or for any concerns Yasmine Crowell NP Division of Cardiology, [facility]- [phone] Pager- [phone] Email- [email or web address] 12-12-2022 Note stable [facility] 12-12-2022 Note Coronary artery dise ase is stable Continue GDMT- ASA, plavix, toprol, crestor continue risk factor modifications- heart healthy diet, regular exercise as tolerated and continue all medications. [facility] 12-12-2022 Note ED stopped lisinopri l r/t angioedema, pt states difficulty swallowing is improved- but states occasionally it feels like something catches. D/W pt to f/U with PCP for symptoms and he may benefit from a GI consult or Swallow study. [facility] 12-12-2022 Note [facility] CARDIOLOGY PROGR ESS NOTE HPI: Ronnell Peres is a 67 y.o. male here for hospital f/U s/p ED evaluation for difficulty swallowing/angioedema Patient here for follow up [facility] ED for throat swelling. His lisinopril was stopped due to possible side effects. Currently states difficulty swallowing is improved but not completely resolved- occasionally has seems to catch in my throat, does not affect my breathing. States he is planning on having Lt inguinal hernia surgery in the future, still needs to make appointment with surgeon. Review of Systems Cardiovascular: Positive for chest pain and dyspnea on exertion. Respiratory: Positive for cough and shortness of breath. Hematologic/Lymphatic: Bruises/bleeds easily. Musculoskeletal: Positive for arthritis, back pain, joint pain and myalgias. All other systems reviewed and are negative. ED note- 12/09/22 Visit Vitals BP 127/72 (BP Location: Left arm, Patient Position: Sitting) Pulse 92 Ht 1.676 m (5' 6 ) Wt 66.2 kg (146 lb) SpO2 97% BMI 23.57 kg/m??? Smoking Status Every Day BSA 1.76 m??? Allergies Allergen Reactions Lisinopril Angioedema Medications: Current Outpatient Medications on File Prior to Visit Medication Sig Dispense Refill aspirin 81 mg EC tablet Take 1 tablet by mouth in the morning. clopidogrel (Plavix) 75 mg tablet Take 1 tablet (75 mg) by mouth once daily as directed. 90 tablet 3 isosorbide mononitrate ER (Imdur) 30 mg 24 hr tablet Take 1 tablet (30 mg) by mouth in the morning. Do not crush or chew. 30 tablet 11 metoprolol succinate XL (Toprol-XL) 25 mg 24 hr tablet Take 0.5 tablets (12.5 mg) by mouth in the morning. Do not crush or chew. 45 tablet 3 rosuvastatin (Crestor) 40 mg tablet Take 1 tablet (40 mg) by mouth at bedtime. 90 tablet 3 tamsulosin (Flomax) 0.4 mg 24 hr capsule Take 0.4 mg by mouth in the morning. varenicline (Chantix) 1 mg tablet Take 1 mg by mouth in the morning. [DISCONTINUED] nitroglycerin (Nitrostat) 0.[address] 0.4 mg under the tongue. buPROPion SR (Wellbutrin SR) 150 mg 12 hr tablet Take 1 tablet (150 mg) by mouth in the morning and at bedtime. Do not crush, chew, or split. 60 tablet 1 [DISCONTINUED] lisinopril 5 mg tablet Take 1 tablet (5 mg) by mouth in the morning. 90 tablet 3 No current facility-administered medications on file prior to visit. Physical Exam: Constitutional: Appearance: Normal appearance. Without apparent distress HENT: Head: Normocephalic and atraumatic. Nose: Nose normal. Mouth/Throat: Mouth: Mucous membranes are moist. Eyes: Extraocular Movements: Extraocular movements intact. Conjunctiva/sclera: Conjunctivae normal. Neck: Vascular: No JVD. Cardiovascular: Rate and Rhythm: Normal rate and regular rhythm. Pulses: Dorsalis pedis pulses are 3 on the right side and 3on the left side. Posterior tibial pulses are 3 on the right side and 3 on the left side. Heart sounds: Normal heart sounds, S1 normal and S2 normal. Pulmonary: Effort: Pulmonary effort is normal. Breath sounds: Normal breath sounds. Abdominal: General: Bowel sounds are normal. Palpations: Abdomen is soft. Musculoskeletal: General: Normal range of motion. Cervical back: Normal range of motion. Right lower leg: No edema. Left lower leg: No edema. Skin: General: Skin is warm and dry. Capillary Refill: Capillary refill takes less than 2 seconds. Neurological: General: No focal deficit present. Mental Status: She is alert and oriented to person, place, and time. Psychiatric: Mood and Affect: Mood normal. Behavior: Behavior normal. Thought Content: Thought content normal. Judgment: Judgment normal. Labs: Reviewed and stable Last lab values have been reviewed CV Testing: See ED note No echocardiogram results found for the past 12 months Assessment/Plan: Angioedema ED stopped lisinopril r/t angioedema, pt states difficulty swallowing is improved- but states occasionally it feels like something catches. D/W pt to f/U with PCP for symptoms and he may benefit from a GI consult or Swallow study. Coronary arteriosclerosis Coronary artery disease is stable Continue GDMT- ASA, plavix, toprol, crestor continue risk factor modifications- heart healthy diet, regular exercise as tolerated and continue all medications. Chest pain stable RTC 6 months [facility] 12-12-2022 Note Patient here for [facility] ED for throat swelling. His lisinopril was stopped due to possible side effects. Denies chest pain. Still smoking, but has cut down to half PPD and is taking Chantix. Review of Systems Cardiovascular: Positive for dyspnea on exertion and palpitations ( sometimes ). Respiratory: Positive for cough and shortness of breath. Hematologic/Lymphatic: Bruises/bleeds easily. Musculoskeletal: Positive for arthritis, back pain, joint pain and myalgias. Neurological: Positive for light-headedness. All other systems reviewed and are negative. [facility] 12-16-2021 Note CARDIAC STRESS TEST Requesting Physician: Procedure Date:12/16/2021 INDICATION: Chest pain. METHOD: After risks, benefits and alternatives were explained, written informed consent was obtained. The patient was brought to the Stress Lab in the resting and fasting state. He was connected to the appropriate hemodynamic and electrocardiographic monitoring. Lexiscan 0.4 mg was infused intravenously. The patient was monitored for the standard duration and discharged in a stable state. FINDINGS: HEMODYNAMICS: Resting heart rate was 67 beats per minute, increasing to a maximum of 110 beats per minute. Resting blood pressure was 164/94, decreasing to 126/80. The patient had no significant chest pain or other notable symptoms. He was discharged in a stable state. ELECTROCARDIOGRAPHY: Rest EKG: Sinus rhythm, 67 beats per minute, normal EKG. During infusion and recovery: No significant ST-T wave changes noted, infrequent premature atrial contractions seen. FINAL IMPRESSIONS: 1. No ischemic EKG changes seen on Lexiscan Pharmacological Stress Test. 2. Nuclear images are to be read, interpreted and relayed in a separate dictation. [facility] 07-10-2021 History of Present illness Narrative Discharge instructions reviewed with and patient. Follow up appointment made. Patient states he feels so much better after stent being pulled. Patient has urinated a few times. SHIELA Alberto updated on patient wanting to go home. Met with Patient this p.m. to discuss discharge planning. Patient is a 66 year old , white male, admitted with a diagnosis of Ureteral Calculus. Patient is alert and oriented, polite and cooperative with this assessment. Patient discharge plan is to return home with his following this hospitalization. Patient resides outside of [place] near [place] with his . 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 Patient uses no DME and has no outside resources or services in place currently. He is independent with his ADL's. Patient drives himself and provides for his own transportation needs. States that his does the cooking and cleaning. PCP is Dr. Zaidi. He has medical insurance and denies any need for further financial assistance with the cost of his medications. Discharge plan is home when stable. Patient is a 'Full Code' status and does not have medical directives on file. Patient's is his decision maker. He reports no anticipated discharge planning concerns or needs at this point. FABRICATION MANAGER to remain involved and assist with any/all discharge planning needs as they present. JEISON Canales 07/10/2021 Patient states he feels much better after the stent was removed. SHIELA Alberto at bedside removing stent. Patient tolerated well. Continues to complain of severe pain, requesting morphine. PVR is greater than 200. Patient continues to refuse to consume fluids. I again explained to the patient that stent pain is typical after surgery. I assured patient that being pain-free is not a realistic expectation after any surgery. I did explain to patient that if we remove the ureteral stent he does run the risk of needing in the stent replaced due to hydronephrosis that is typical after surgery. He does understand this risk, but is adamant that he would like the stent removed. Ureteral stent removed with very minimal complaints. String and both curls intact. We will monitor patient for the next few hours to see if his pain improves. Patient continues to have pain. Requesting morphine. SHIELA Alberto at bedside. See orders. Urology Progress Note Subjective: Consuming minimal fluids because he does not want to urinate. Complaining of severe flank pain and pain with urination. He denies nausea, vomiting or fevers. Objective: S/p left HLL on07/09/2021 Creatinine 1.47. He has been receiving both oxycodone and morphine for pain. REVIEW OF SYSTEMS: Constitutional: Negative for fever, chills and unexpected weight change. Respiratory: Negative for shortness of breath and wheezing. Cardiovascular: Negative for chest pain and palpitations. Gastrointestinal: Negative for nausea or vomiting. Last BM prior to surgery. Endocrine: Negative for polydipsia and polyuria. Genitourinary: Positive for flank pain, bladder pain, suprapubic pain, and gross hematuria Musculoskeletal: Negative for myalgias and joint swelling. Skin: Negative for rash and wound. Neurological: Negative for dizziness and headaches. Hematological: Negative for adenopathy. Does not bruise/bleed easily. PHYSICAL EXAM: Constitutional: Patient resting comfortably, in no acute distress. Neuro: Alert and oriented to person place and time. Cranial nerves grossly intact. Psych: Mood and affect normal. Skin: Warm, dry, non-diaphoretic HEENT: normocephalic, atraumatic Lymphatics: No palpable lymphadenopathy Lungs: Respiratory effort normal, unlabored Cardiovascular: Normal peripheral pulses Abdomen: Soft, non-tender, non-distended with no organomegaly or palpable masses. : No CVA tenderness bilat. Bladder non-tender and not distended. Genital/Rectal: no bladder distension noted Urethral Meatus: normal Extremities: Calves are non-tender, equal in circumference bilat without swelling, warmth, or erythema. Patient Vitals for the past 24 hrs: BP Temp Temp src Pulse Resp SpO2 Height 07/10/21 0853 5' 6 (1.676 m) 07/10/21 0708 115/78 97.6 F (36.4 C) Temporal 65 20 94 % 07/10/21 0130 107/72 98.2 F (36.8 C) Temporal 61 16 95 % 07/09/21 1930 122/80 98.3 F (36.8 C) Temporal 72 16 95 % 07/09/21 1815 (!) 158/97 83 16 98 % 07/09/21 1800 (!) 167/91 84 16 97 % 07/09/21 1745 (!) 166/88 75 16 97 % 07/09/21 1730 (!) 194/91 82 16 96 % 07/09/21 1715 (!) 181/79 72 16 97 % 07/09/21 1700 (!) 186/78 72 18 97 % 07/09/21 1645 (!) 179/82 77 18 96 % 07/09/21 1630 (!) 160/91 70 18 96 % 07/09/21 1615 (!) 153/91 77 22 97 % 07/09/21 1605 (!) 157/98 80 20 96 % 07/09/21 1600 (!) 157/100 75 18 97 % 07/09/21 1555 (!) 163/96 77 24 96 % 07/09/21 1550 (!) 167/99 98.2 F (36.8 C) Temporal 89 26 99 % Intake/Output Summary (Last 24 hours) at 07/10/2021 1517 Last data filed at 07/10/2021 1016 Gross per 24 hour Intake 500 ml Output 255 ml Net 245 ml Recent Labs 07/10/21 0600 WBC 9.0 HGB 12.5* HCT 36.0* MCV 86.1 PLT 239 Recent Labs 07/10/21 0600 NA 137 K 4.0 CL 104 CO2 24 BUN 21 CREATININE 1.47* No results for input(s): COLORU, PHUR, LABCAST, WBCUA, RBCUA, MUCUS, TRICHOMONAS, YEAST, BACTERIA, CLARITYU, SPECGRAV, LEUKOCYTESUR, UROBILINOGEN, BILIRUBINUR, BLOODU in the last 72 hours. Invalid input(s): NITRATE, GLUCOSEUKETONESUAMORPHOUS Additional Lab/culture results: none Interval Imaging Findings: none Assessment: Patient Active Problem List Diagnosis Ureteral calculus Renal calculus Plan: We will have him take Pyridium now to see if this helps with his pain. I did stress the importance of increasing his water intake. We will reevaluate his symptoms in 2 hours, then we will determine if we need to pull the stent. I have discussed the care of this patient including pertinent history and exam findings, lab and imaging results, assessment, orders and plan as documented above with Norbert Neff MD. SABI Menchaca CNP 3:17 PM 07/10/2021 Comprehensive Nutrition Assessment Type and Reason for Visit: Initial,Positive Nutrition Screen,Patient Education Nutrition Recommendations/Plan: Encourage oral fluids Nutrition Assessment: Predicted suboptimal nutrient intakes r/t renal dysfunction, AEB lower PO with pain. Food and nutrition knowledge deficit r/t renal dysfunction, AEB high oxalate foods in diet with questionable oral fluids. Still with pain and awaiting urology. PO good per I/O. Discussed lower oxalate and increased fluids during visit. Attached accompanying literature to d/c instructions as well. Malnutrition Assessment: Malnutrition Status: At risk for malnutrition (Comment) Context: Acute Illness Findings of the 6 clinical characteristics of malnutrition: Energy Intake: Mild decrease in energy intake (Comment) Weight Loss: No significant weight loss Body Fat Loss: No significant body fat loss Muscle Mass Loss: No significant muscle mass loss Fluid Accumulation: No significant fluid accumulation On Call Pharmacy Technician Strength: Not Performed Estimated Daily Nutrient Needs: Energy (kcal): 1683-4965 (25-30); Weight Used for Energy Requirements: Current Protein (g): 73-80 (1.2-1.3); Weight Used for Protein Requirements: Current Fluid (ml/day): 1900; Method Used for Fluid Requirements: 1 ml/kcal Nutrition Related Findings: no malnurition indices Wounds: None Current Nutrition Therapies: ADULT DIET; Regular Anthropometric Measures: Height: 5' 6 (167.6 cm) Current Body Weight: 135 lb (61.2 kg) Admission Body Weight: 135 lb (61.2 kg) Usual Body Weight: 140 lb (63.5 kg) (couple weeks ago) [place] Body Weight: 142 lbs; % [place] Body Weight 95.1 % BMI: 21.8 Adjusted Body Weight: ; No Adjustment BMI Categories: Normal Weight (BMI 18.5-24.9) Nutrition Diagnosis: Predicted inadequate energy intake related to renal dysfunction as evidenced by weight loss Lab Results Component Value Date NA 137 07/10/2021 K 4.0 07/10/2021 CL 104 07/10/2021 CO2 24 07/10/2021 BUN 21 07/10/2021 CREATININE 1.47 (H) 07/10/2021 GLUCOSE 95 07/10/2021 CALCIUM 8.9 07/10/2021 LABGLOM 48 (L) 07/10/2021 GFRAA 58 (L) 07/10/2021 No results found for: LABA1C No results found for: EAG No results found for: VITD25 Nutrition Interventions: Food and/or Nutrient Delivery: Continue Current Diet Nutrition Education/Counseling: Education initiated Coordination of Nutrition Care: Continue to monitor while inpatient Goals: PO >75% meals with increased fluids and less oxalate in diet Nutrition Monitoring and Evaluation: Behavioral-Environmental Outcomes: Beliefs and Attitutes,Readiness for Change Food/Nutrient Intake Outcomes: Food and Nutrient Intake Physical Signs/Symptoms Outcomes: Biochemical Data,Weight Discharge Planning: No discharge needs at this time Contact: [id number] Patient complaining of pain. Encouraged patient to drink fluids. Morphine given. Instructed patient on incentive spirometry, patient complains of hurting in left abdomen area when he coughs. Will continue to monitor. Dr. Neff updated over phone at this time. Reassessment and vitals completed at this time. Pt rates 5/10 pain, refuses any pain medication at this time. States he could probably fall back asleep soon. Will continue to monitor. Pt refusing continuous fluids and compressions pumps at this time. Pt arrived to [facility] 330 via wheelchair from post op recovery. Pt alert and oriented x4. Pt was able to ambulate from wheelchair to recliner in room. Pt rates 2/10 pain when sitting in one place. Pt arrived on room air with no IV access. Pt denies any needs at this time. Report given to Gama HADLEY. [facility]. Discharge Criteria Inpatients must meet Criteria 1 through 7. All other patients are either YES or N/A. If a NO is chosen then Anesthesia or Surgeon must be notified. 1. Minimum 30 minutes after last dose of sedative medication, minimum 120 minutes after last dose of reversal agent. Yes 2. Systolic BP stable within 20 mmHg for 30 minutes & systolic BP between 90 & 180 or within 10 mmHg of baseline. Yes 3. Pulse between 60 and 100 or within 10 bpm of baseline. Yes 4. Spontaneous respiratory rate >/= 10 per minute. Yes 5. SaO2 >/= 95 or >/= baseline. Yes 6. Able to cough and swallow or return to baseline function. Yes 7. Alert and oriented or return to baseline mental status. Yes 8. Demonstrates controlled, coordinated movements, ambulates with steady gait, or return to baseline activity function. Yes 9. Minimal or no pain or nausea, or at a level tolerable and acceptable to patient. No- reason for admission 10. Takes and retains oral fluids as allowed. Yes 11. Procedural / perioperative site stable. Minimal or no bleeding. Yes 12. If GI endoscopy procedure, minimal or no abdominal distention or passing flatus. N/A 13. Written discharge instructions and emergency telephone number provided. N/A 14. Accompanied by a responsible adult. N/A After getting dressed to go home and voiding, pt has increase in pain, states now he believes he is unable to go home and have adequate pain relief. Dr Neff called by NEWS WIRE PHOTO OPERATOR and updated. Pt being admitted overnight for pain control. Pt ambulated to bathroom and back to chair. Steady with ambulation and pt states he was able to urinate a small amount. Upon return from bathroom pt states it burned when he was urinating and he is now in excruciating pain in his left side. Pt grabbing his left lower abdomen and back, writhing in pain states he cannot handle this pain and he feels like he cannot move it hurts so bad. Pt states there is no way he can do this at home. Dr Neff notified via phone and decision made to keep pt overnight for pain control. Admit orders received at this time. Pt states he is feeling much better and would like to go home. Sukhdeep DANIELS aware of pt's elevated BP and okay with discharge. Spoke with Sukhdeep DANIELS about giving pt toradol since it doesn't look like he was given any during surgery. New order for 30mg toradol received. Pt states his pain was feeling better and is worse again. States it feels like someone is stabbing him at times and he is a little nauseous. Pt bladder scanned per Dr Neff request and showed 128ml in bladder. Dr notified and new order for B&O suppository received. Pt ambulated to bathroom and back to chair with standby assist. Pt unable to urinate at this time. Scant amount of blood noted in toilet. Patient instructed on the pre-operative, intra-operative, and post-operative process. Patient's surgical procedure and day of surgery confirmed. Patient instructed on NPO status. Medication instructions reviewed with patient. Pre operative instruction sheet reviewed with patient per PAT phone interview. Patient instructed to stop Aspirin and Plavix, per Dr. Neff, today (07/05/2021). Instructed patient to only take Metoprolol with sip of water the morning of surgery. Appointment time and instructions for pre-op COVID testing given to patient. COVID test on 07/05/2021 documented in this encounter [facility] Phone: 07-10-2021 Hospital course Narrative DISCHARGE SUMMARY NOTE: Patient Identification PATIENT: Ronnell Peres is a 66 y.o. male. : 1955 Admit Date: 07/09/2021 Discharge date: No discharge date for patient encounter. Disposition: home Discharged Condition: good Discharge Diagnoses: Patient Active Problem List Diagnosis Ureteral calculus Renal calculus Consults: none Surgery: Left HLL Patient Instructions: Activity: As tolerated Diet: As tolerated Patient told to follow up with urology on 08/22/2021 at 930. Will need a KUB prior. Discharge Medications: Medication List CONTINUE taking these medications aspirin 81 MG EC tablet clonazePAM 0.5 MG tablet Commonly known as: KLONOPIN Crestor 40 MG tablet Generic drug: rosuvastatin HYDROcodone-acetaminophen 5-325 MG per tablet Commonly known as: NORCO lisinopril 5 MG tablet Commonly known as: PRINIVIL;ZESTRIL metoprolol succinate 25 MG extended release tablet Commonly known as: TOPROL XL nitroGLYCERIN 0.4 MG SL tablet Commonly known as: NITROSTAT Plavix 75 MG tablet Generic drug: clopidogrel tamsulosin 0.4 MG capsule Commonly known as: FLOMAX Take 1 capsule by mouth daily Hospital course: Status post left holmium laser lithotripsy on 07/09/2021. He was admitted due to intolerable postop pain. Due to persistent stent pain we did remove the stent. Patient's pain significantly improved once the stent was removed. We will plan to see patient in our office in 6 weeks with a KUB prior. Dolly Lopez APRN - SHIELA 3:32 PM 07/10/2021 documented in this encounter [facility] Phone: 07-09-2021 Hospital Discharge instructions Dolly Lopez, SABI - REINSURANCE ACCOUNTANT - 07/09/2021 You may experience waves of pain and/or nausea for the next 24-72 hrs. You may also experience burning with urination, frequency, urgency, bladder spasms, and blood in the urine. All of this should continue to improve over the next several days. The blood in the urine can last up to two weeks. 1) take ibuprofen (motrin) 600 mg (3 of the 200mg tabs) every 6 hours WITH FOOD for the next 72 hours. 2) take Flomax daily. 3) drink at least 80 oz fluid (water, juice, Gatorade - NOT tea, coffee, soda pop) daily 4) take acetaminophen 500mg every 4-6 if needed For pain NOT controlled by ibuprofen or acetaminophen use norco as directed as needed. Call our office [phone] or go to ER (if after normal office hours) if you develop fever, intractable vomiting, severe/intolerable pain. The following attachments cannot be sent through Care Everywhere.Kidney Stone Prevention Diet: General Info (Cymro)documented in this encounter [facility] Phone: 06-23-2021 Note PROCEDURE: XR CHEST 1 V REASON FOR STUDY/CLINICAL HISTORY: CHEST PAIN, UNSPECIFIED. COMPARISON STUDY: 04/13/2021. TECHNIQUE: Single view(s) of the chest presented for interpretation. FINDINGS: No acute cardiopulmonary process. Trace bibasilar atelectasis. Stable cardiomediastinal silhouette. No focal consolidation, edema, or large pleural effusion. No pneumothorax. No acute appearing focal significant bony abnormality. IMPRESSION: No acute localizing pulmonary pathology. Trace bibasilar atelectasis. Electronically authenticated by: LENIN JAY Date: 2021-06-22 22:30 [facility] Evaluation + Plan note No data available for this section General Surgery [facility] Evaluation note Diagnosis Preop testing Preoperative examination, unspecified documented in this encounter [facility] Phone: Evaluation note* Diagnosis Ureteral calculus- Primary Calculus of ureter Renal calculus Calculus of kidney documented in this encounter [facility] Phone: evaluation note* Diagnosis Left lower quadrant abdominal pain- Primary Urinary tract infection with hematuria, site unspecified Ureteral calculus Calculus of ureter documented in this encounter [facility] Phone: evaluation note* Diagnosis Ureteral stone Calculus of ureter Nausea Nausea alone Decreased appetite Anorexia documented in this encounter [facility] Phone: evaluation note* Diagnosis Renal colic LLQ pain Abdominal pain, left lower quadrant Incomplete bladder emptying documented in this encounter [employer] Phone: evaluation note* Diagnosis Renal colic LLQ pain Abdominal pain, left lower quadrant Incomplete bladder emptying documented in this encounter [facility] Phone: evaluation note* Diagnosis Renal colic LLQ pain Abdominal pain, left lower quadrant Incomplete bladder emptying documented in this encounter [employer] Phone: evaluation note* Diagnosis Ureteral stone Calculus of ureter documented in this encounter [facility] Phone: [email or web address] note* Diagnosis Intermittent chest pain- Primary Chest pain, unspecified History of epistaxis Personal history of other diseases of respiratory system documented in this encounter [facility]* Diagnosis Asymmetric SNHL (sensorineural hearing loss)- Primary Sensorineural hearing loss, asymmetrical Left-sided tinnitus Unspecified tinnitus documented [facility] Discharge instructions* Instructions* David Robbins DO - 07/11/2021 Please take the antibiotics as prescribed until they are all gone. Please take the pain medicine as prescribed as well as the stool softeners you have at home to allow you to have regular bowel movements. Please do not hesitate to reach out to Dr. Neff's office with any questions. * Attachments The following attachments cannot be sent through Care Everywhere. * Lithotripsy: Post-op (Cymro) * UTI (Urinary Tract Infection): Male (Cymro) [facility] Discharge instructions No data available for this section General Surgery [employer] Progress note No data available for this section General Surgery [employer] Reason for visit Narrative* Auth/Cert Specialty Diagnoses / Procedures Referred By Miguel Angel t Referred To Contact Diagnoses Left ureteral calculus LEFT URETERAL CALCULUS, BLADDER WALL THICKENING Procedures OR CYSTO/URETERO W/LITHOTRIPSY &INDWELL STENT INSRT OR CYSTO/URETERO W/LITHOTRIPSY &INDWELL STENT INSRT CYSTOSCOPY URETEROSCOPY LASER- HLL CYSTOSCOPY URETERAL STENT INSERTION- POSS BLADDER BX Norbert Neff MD [address], [address] [place] [address] [employer] [address] [place] [address] Referral ID Status Reason Start Date Expiration Date Visits Re quested Visits Authorized [id number] 11 [facility] Phone: Summary Purpose Family History No Family History Records FoundNo Family History Records Found No data available for this section No Family History Records Found No data available for this section No Family History Records FoundNo Family History Records FoundNo Family History Records Found Advance Directives No Advanced Directives Records FoundLatest Code Status on File Code Status Date Activated Date Inactivated Comments Full Code 07/09/2021 7:39 PM Full Code 07/09/2021 2:57 PM 07/09/2021 7:38 PM Healthcare Agents on File Name Relationship Healthcare Agent Relationshi p Communication Christiane Freeze Spouse Primary Decision Maker Jesusita Kilgore Child Secondary Decision Maker Latest Code Status on File Code Status Date Activated Date Inactivated Comments Full Code 07/09/2021 7:39 PM 07/10/2021 6:34 PM Full Code 07/09/2021 2:57 PM 07/09/2021 7:38 PM Healthcare Agents on File Name Relationship Healthcare Agent Relationshi p Communication Christiane Freeze Spouse Primary Decision Maker Jesusita Kilgore Child Secondary Decision Maker Healthcare Agents on File Name Relationship Healthcare Agent Relationshi p Communication Christiane Freeze Spouse Primary Decision Maker Jesusita Kilgore Child Secondary Decision Maker Healthcare Agents on File Name Relationship Healthcare Agent Relationshi p Communication Christiane Freeze Spouse Primary Decision Maker Jesusita Kilgore Child Secondary Decision Maker Healthcare Agents on File Name Relationship Healthcare Agent Relationshi p Communication Christiane Freeze Spouse Primary Decision Maker Jesusita Kilgore Child Secondary Decision Maker Latest Code Status on File Code Status Date Activated Date Inactivated Comments Full Code 07/09/2021 7:39 PM 07/10/2021 6:34 PM Healthcare Agents on File Name Relationship Healthcare Agent Relationshi p Communication Christiane Freeze Spouse Primary Decision Maker Jesusita Kilgore Child Secondary Decision Maker Healthcare Agents on File Name Relationship Healthcare Agent Relationshi p Communication Christiane Freeze Spouse Primary Decision Maker Jesusita Kilgore Child Secondary Decision Maker Healthcare Agents on File Name Relationship Healthcare Agent Relationshi p Communication Christiane Freeze Spouse Primary Decision Maker Jesusita Kilgore Child Secondary Decision Maker Latest Code Status on File Code Status Date Activated Date Inactivated Comments Full Code 07/09/2021 7:39 PM 07/10/2021 6:34 PM Code Status History Code Status Date Activated Date Inactivated Comments Full Code 07/09/2021 2:57 PM 07/09/2021 7:38 PM Healthcare Agents on File Name Relationship Healthcare Agent Relationshi p Communication Christiane Freeze Spouse Primary Decision Maker Jesusita Kilgore Child Secondary Decision Maker Reason for Referral Specialty Diagnoses / Procedures Referred By Contac t Referred To Contact Radiology Diagnoses Renal colic LLQ pain Incomplete bladder emptying Procedures CT ABDOMEN PELVIS WO CONTRAST Additional Contrast? None Parsell, Dolly W, REGULATOR MECHANIC - REINSURANCE ACCOUNTANT [address] [place] [address] Referral ID Status Reason Start Date Expiration Date Visits Re quested Visits Authorized [id number] Closed 07/16/2021 01/12/2022 1 1 Additional Source Comments (unrecognized sect ion and content) No Status Records FoundNo Status Records FoundNo Status Records FoundNo Status Records FoundNo Status Records FoundNo Status Records Found INFORMATION SOURCE (unrecogn ized section and content) DATE CREATED AUTHOR 11/20/2017 [facility] DATE CREATED AUTHOR AUTHOR'S ORGANIZ ATION 12/21/2021 [facility] DATE CREATED AUTHOR AUTHOR'S ORGANIZ ATION 06/18/2023 [facility] EPIC DATE CREATED AUTHOR AUTHOR'S ORGANIZ ATION 08/23/2023 [facility] DATE CREATED AUTHOR AUTHOR'S ORGANIZ ATION 08/27/2023 [facility] DATE CREATED AUTHOR AUTHOR'S ORGANIZ ATION 08/30/2023 [facility] Care Teams (unrecognized sec tion and content) Truant Officer Relationship Specialty Start Date End Date Dylan Zaidi MD [address] [phone] PCP - General Family Medicine 07/05/21 Truant Officer Relationship Specialty Start Date End Date Dylan Zaidi MD [address] [id number] PCP - General Family Medicine 07/05/21 Truant Officer Relationship Specialty Start Date End Date Dylan Zaidi MD [address] [id number] PCP - General Family Medicine 07/05/21 Truant Officer Relationship Specialty Start Date End Date Dylan Zaidi MD [address] [id number] PCP - General Family Medicine 07/05/21 Truant Officer Relationship Specialty Start Date End Date Dylan Zaidi MD [address] [place] [address] PCP - General Family Medicine 07/05/21 Truant Officer Relationship Specialty Start Date End Date Dylan Zaidi MD [address] [place] [address] PCP - General Family Medicine 07/05/21 Truant Officer Relationship Specialty Start Date End Date Dylan Zaidi MD [address] [place] [address] PCP - General Family Medicine 07/05/21 Truant Officer Relationship Specialty Start Date End Date Dylan Zaidi MD [address] [place] [address] PCP - General Family Medicine 07/05/21 Truant Officer Relationship Specialty Start Date End Date Dylan Zaidi MD [address] [place] [address] PCP - General Family Medicine 07/05/21 Truant Officer Relationship Specialty Start Date End Date Dylan Zaidi MD [address] [place] [address] PCP - General Family Medicine 07/05/21 Truant Officer Relationship Specialty Start Date End Date Dylan Zaidi MD [address] [place] [phone] PCP - General Family Medicine 01/28/23 Scheduled Active and Recently Administ ered Medications (unrecognized section and content) Medication Order 07/08/2021 07/09/2021 07/10/2021 acetaminophen (TYLENOL) tablet 650 mg (COMPLETED) 650 mg, Oral, ONCE, On Thu07/09/21 at 1230, For 1 dose, Maximum dose of acetaminophen is 4000 mg from all sources in 24 hours., Pre-op (day of surgery) 1233 (Given - Provider: Vanita Delaney, JOMAR) aspirin EC tablet 81 mg 81 mg, Oral, DAILY, First dose on Thu07/09/21 at 2000, Do not crush or break. 2055 (Not Given - Provider: Gama Bell RN - Reason: Patient/family refused) 0838 (Given - Provider: Kami Moses, JOMAR) ciprofloxacin (CIPRO) IVPB 400 mg (COMPLETED) 400 mg, IntraVENous, AIR CONDITIONING COIL ASSEMBLER TO O.R., 1 dose, On Thu07/09/21 at 1515, Administer within 1 hour prior to incision, Pre-op (day of surgery) 1458 (New Bag - Provider: Kalina Dc RN)1558 (Stopped - Provider: Kami Moses RN) clonazePAM (KLONOPIN) tablet 0.25 mg 0.25 mg, Oral, 3 TIMES DAILY, First dose on Thu07/09/21 at 2099 205 (Given - Provider: Gama Bell RN) 0838 (Given - Provider: Kami Moses RN)1458 (Given - Provider: Kami Moses RN)2099 (Due) clopidogrel (PLAVIX) tablet 75 mg 75 mg, Oral, DAILY, First dose on Thu07/09/21 at 2000 205 (Given - Provider: Gama Bell RN) 0844 (Given - Provider: Kami Moses RN) dimenhyDRINATE (DRAMAMINE) tablet 50 mg (COMPLETED) 50 mg, Oral, ONCE, On Thu07/09/21 at 1230, For 1 dose, Pre-op (day of surgery) 1233 (Given - Provider: Vanita Delaney, JOMAR) HYDROcodone-acetaminophen (NORCO) 5-325 MG per tablet 1 tablet (COMPLETED) 1 tablet, Oral, ONCE, On Thu07/09/21 at 1745, For 1 dose, Maximum dose of acetaminophen is 4000 mg from all sources in 24 hours. 1729 (Given - Provider: Janis Najera, JOMAR) ketorolac (TORADOL) injection 30 mg (COMPLETED) 30 mg, IntraVENous, ONCE, On Thu07/09/21 at 1815, For 1 dose, Do not administer for more than 5 days. 1755 (Given - Provider: Janis Najera RN) lisinopril (PRINIVIL;ZESTRIL) tablet 5 mg 5 mg, Oral, DAILY, First dose on Thu07/09/21 at 1999 2054 (Given - Provider: Gama Bell RN) 0844 (Given - Provider: Kami Moses RN) metoprolol succinate (TOPROL XL) extended release tablet 25 mg 25 mg, Oral, DAILY, First dose on Thu07/09/21 at 1999, Do not crush or chew. 2054 (Given - Provider: Gama Bell RN) 08 (Given - Provider: Kami Moses RN) phenazopyridine (PYRIDIUM) tablet 200 mg 200 mg, Oral, 3 TIMES DAILY WITH MEALS, First dose on Thu07/10/21 at 1045, May cause discoloration of urine. 1033 (Given - Provid er: Kami Moses RN)1600 (Given - Provider: Kami Moses RN) rosuvastatin (CRESTOR) tablet 40 mg 40 mg, Oral, EVERY EVENING, First dose on Thu07/09/21 at 1999 2054 (Given - Provider: Gama Bell RN) 1800 (Due) sodium chloride flush 0.9 % injection 5-40 mL 5-40 mL, IntraVENous, EVERY 12 HOURS SCHEDULED (2 times per day), First dose on Thu07/09/21 at 2100, For Line Patency: Peripheral IV = 5 mL; Midline or Central Line = 10 mL/lumen. If following IV push medication, administer flush at same rate as the IV push. Flush volume is determined by type of infusion therapy being given. For non-viscous solutions use: Peripheral IV = 5 mL Midline or Central Line = 10 mL/lumen For viscous solutions (i.e. blood components, parenteral nutrition, contrast media, or after obtaining blood sample) use: Peripheral IV = 10 mL Midline or Central Line = 20 mL/lumen, Post-op 2158 (Given by Other - Provider: Gama Bell RN) 0844 (Given - Provider: Kami Moses RN)2100 (Due) tamsulosin (FLOMAX) capsule 0.4 mg 0.4 mg, Oral, DAILY, First dose on Thu07/09/21 at 1999, Do not crush or break. 2054 (Given - Provider: Gama Bell RN) 0844 (Given - Provider: Kami Moses, JOMAR) Continuous Medication Order 07/08/2021 07/09/2021 07/10/2021 0.45 % NaCl with KCl 20 mEq infusion 100 mL/hr, IntraVENous, CONTINUOUS, Starting on Thu07/09/21 at 2000, Post-op 1999 (Not Given - Provider: Gama Bell RN - Reason: Patient/family refused)2000 (Stopped - Provider: Kami Moses RN - Comment: patient refusing) lactated ringers infusion (CANCELED) IntraVENous, at 100 mL/hr, CONTINUOUS, Starting on Thu07/09/21 at 1230, Pre-op (day of surgery) 1234 (New Bag - Provider: Nadia Delaney RN)1502 (NoRateChange - Provider: Sandie Rai APRN - CUSTOMER EXPERIENCE RETAIL CLERK)1821 (Stopped - Provider: Janis Najera RN) PRN Medication Order 07/08/2021 07/09/2021 07/10/2021 0.9 % sodium chloride infusion 25 mL, IntraVENous, at 100 mL/hr, PRN, If patient receiving piggyback infusions without ordered maintenance IV fluids or with frequent/long duration piggyback infusions, Starting on Thu07/09/21 at 1939, Administer at the same rate as the piggyback being infused., Post-op bisacodyl (DULCOLAX) EC tablet 5 mg 5 mg, Oral, DAILY PRN, Constipation, Starting on Thu07/09/21 at 1939, First line therapy for constipation., Post-op fentaNYL (SUBLIMAZE) injection 25 mcg (CANCELED) 25 mcg, IntraVENous, EVERY 5 MIN PRN, Pain Moderate (4-6), Starting on Thu07/09/21 at 1325, For 4 doses, Phase I - Initial therapy for moderate pain., PACU only 1558 (Given - Provider: Janis Najera RN)1604 (Given - Provider: Janis Najera RN) fentaNYL (SUBLIMAZE) injection 50 mcg (CANCELED) 50 mcg, IntraVENous, EVERY 5 MIN PRN, Pain Severe (7-10), Starting on Thu07/09/21 at 1325, For 4 doses, Phase I - Initial therapy for severe pain., PACU only 1611 (Given - Provider: Janis Najera RN) HYDROcodone-acetaminophen (NORCO) 5-325 MG per tablet 1 tablet (COMPLETED) 1 tablet, Oral, ONCE PRN, Pain Moderate (4-6), Pain Severe (7-10), Starting on Thu07/09/21 at 1325, For 1 dose, Maximum dose of acetaminophen is 4000 mg from all sources in 24 hours., PACU only 1648 (Given - Provider: Janis Najera RN) lidocaine (XYLOCAINE) 2 % uro-jet (CANCELED) PRN, Starting on Thu07/09/21 at 1530, Intra-op 1530 (Given - Provider: Norbert Neff MD - Comment: urethra) morphine (PF) injection 2 mg 2 mg, IntraVENous, EVERY 3 HOURS PRN, Pain Moderate (4-6), Starting on Thu07/09/21 at 1939, If oral and IV narcotics ordered, use oral first and only use IV if oral is ineffective or cannot take oral. Do Not give oral and IV within 1 hour of each other unless specifically ordered., Post-op 0838 (Given - Provid er: Kami Moses RN)1201 (Given - Provider: Kami Moses RN) nitroGLYCERIN (NITROSTAT) SL tablet 0.4 mg 0.4 mg, SubLINGual, EVERY 5 MIN PRN, Chest pain, Starting on Thu07/09/21 at 1939, Place 1 tablet under tongue upon chest pain, wait 5 minutes and may repeat up to 3 doses in 15 minutes. Do not crush or break. ondansetron (ZOFRAN) injection 4 mg 4 mg, IntraVENous, EVERY 6 HOURS PRN, Nausea, Starting on Thu07/09/21 at 1939, Post-op opium-belladonna (B&O SUPPRETTES) 16.2-30 MG suppository 30 mg (CANCELED) 30 mg, Rectal, EVERY 8 HOURS PRN, Bladder Spasms, Starting on Thu07/09/21 at 1707 1721 (Given - Provider: Janis Najera RN) opium-belladonna (B&O SUPPRETTES) 16.2-30 MG suppository 30 mg 30 mg, Rectal, EVERY 8 HOURS PRN, Bladder Spasms, Starting on Thu07/09/21 at 1939, PRN for bladder spasms., Post-op oxyCODONE (ROXICODONE) immediate release tablet 10 mg(Linked Group 1) 10 mg, Oral, EVERY 4 HOURS PRN, Pain Severe (7-10), Starting on Thu07/09/21 at 1939, Post-op 2054 (Given - Provider: Gama Bell RN) 0708 (Given - Provider: Kami Moses RN)1600 (See Alternative - Provider: Kami Moses RN) oxyCODONE (ROXICODONE) immediate release tablet 5 mg(Linked Group 1) 5 mg, Oral, EVERY 4 HOURS PRN, Pain Moderate (4-6), Starting on Thu07/09/21 at 1939, Post-op 2054 (See Alternative - Provider: Gama Bell RN) 0708 (See Alternative - Provider: Kami Moses RN)1600 (Given - Provider: Kami Moses RN) sodium chloride flush 0.9 % injection 5-40 mL 5-40 mL, IntraVENous, PRN, Line Care, Starting on Thu07/09/21 at 1939, After every IV line use, Post-op Linked Groups Order Group 1: oxyCODONE (ROXICODONE) immediate release tablet 5 mgJump to med 5 mg, Oral, EVERY 4 HOURS PRN, Pain Moderate (4-6), Starting on Thu07/09/21 at 193, Post-op Or oxyCODONE (ROXICODONE) immediate release tablet 10 mgJump to med 10 mg, Oral, EVERY 4 HOURS PRN, Pain Severe (7-10), Starting on Thu07/09/21 at 1939, Post-op Scheduled Medication Order 07/09/2021 07/10/2021 07/11/2021 cefTRIAXone (ROCEPHIN) 1000 mg IVPB in 50 mL D5W minibag (COMPLETED) 1,000 mg, IntraVENous, ONCE, 1 dose, On Farida 07/11/21 at 1045 1103 (New Bag - Prov ider: Hemalatha Morelos RN)1133 (Stopped - Provider: Hemalatha Morelos RN) ketorolac (TORADOL) injection 15 mg (COMPLETED) 15 mg, IntraVENous, ONCE, On Far[place] 07/11/21 at 0800, For 1 dose 0804 (Given - Provid er: Hemalatha Morelos RN) morphine injection 4 mg (COMPLETED) 4 mg, IntraVENous, ONCE, On Farida 07/11/21 at 0800, For 1 dose 0804 (Given - Provid er: Hemalatha Morelos RN) ondansetron (ZOFRAN) injection 4 mg (COMPLETED) 4 mg, IntraVENous, ONCE, On Farida 07/11/21 at 0800, For 1 dose 0803 (Given - Provid er: Hemalatha Morelos RN) oxyCODONE-acetaminophen (PERCOCET) 5-325 MG per tablet 1 tablet (COMPLETED) 1 tablet, Oral, ONCE, On Farida 07/11/21 at 1100, For 1 dose, Maximum dose of acetaminophen is 4000 mg from all sources in 24 hours. 1100 (Given - Provid er: Hemalatha Morelos RN) Scheduled Medication Order 01/23/2023 01/24/2023 01/25/2023 hydrOXYzine HCl (ATARAX) tablet 25 mg (COMPLETED) 25 mg, Oral, ONCE, 1 dose, On 01/25/23 at 1230 1221 (Given - Provid er: Tabitha Mott RN) Reason for Visit (unrecogniz ed section and content) Reason Comments Abdominal Pain LLQ, onset this AM. Pt reports he was discharged from hospital yesterday after having left sided lithotripsy and stent placement.. Stent was removed yesterday afternoon. Specialty Diagnoses / Procedures Referred By Miguel Angel mcelroy Referred To Contact Radiology Diagnoses Renal colic LLQ pain Incomplete bladder emptying Procedures CT ABDOMEN PELVIS WO CONTRAST Additional Contrast? None Dolly oLpez, REGULATOR MECHANIC - REINSURANCE ACCOUNTANT [address] [place] [address] Referral ID Status Reason Start Date Expiration Date Visits Re quested Visits Authorized [id number] Closed 07/16/2021 01/12/2022 1 1 Reason Comments Epistaxis Intermittent nose bl eeds since Thursday, also reports intermittent chest pain Reason Comments Hearing Loss Follow up audio 06/10 Ordered Prescriptions (unrec ognized section and content) Prescription Sig Dispensed Refills Start Date End Da te sulfamethoxazole-trimeth oprim (BACTRIM DS) 800-160 MG per tablet Take 1 tablet by mouth 2 times daily for 10 days 20 tablet 0 07/11/2021 07/21/2021 oxyCODONE-acetaminophen (PERCOCET) 5-325 MG per tabletIndications:Urinar y tract infection with hematuria, site unspecified,Ureteral calculus Take 1 tablet by mouth every 6 hours as needed for Pain for up to 3 days. Intended supply: 3 days. Take lowest dose possible to manage pain 12 tablet 0 07/11/2021 07/14/2021 FOR RECORDS PERTAINING TO PATIENTS WHO ARE OR HAVE BEEN ENROLLED IN A CHEMICAL DEPENDENCY/SUBSTANCEABUSE PROGRAM, SOME INFORMATION MAY BE OMITTED. This clinical summary was aggregated from multiple sources. Caution should be exercised in using it in the provision of clinical care. This summary normalizes information from multiple sources, and as a consequence, information in this document may materially change the coding, format and clinical context of patient data. In addition, data may be omitted in some cases. CLINICAL DECISIONS SHOULD BE BASED ON THE PRIMARY CLINICAL RECORDS. [facility]. provides no warranty or guarantee of the accuracy or completeness of information in this document.
[2023-09-02] MEDS: LACTATED RINGER'S SOLUTION 1,000 ML 50 ML IV ×2 (08:34→11:21)
--- NOTE | 2023-09-02 09:19 | PC.NURSE ---
Patient consented to TAP block with DR. Sorto. Timeout performed per protocol. Patient was positioned with monitors and O2 placed. Patient was medicated per Dr. Sorto. Bedside ultrasound was used to locate site for block. Block started at 0907 and ended at 0910. Patient tolerated well. Was repositioned for comfort. Remains on monitors and O2 until will be taken to OR. at bedside at this time. Call light within reach.
[2023-09-02] MEDS: CEFAZOLIN SODIUM/DEXTROSE,ISO 2 GM/50 ML PIGGYBACK IV (10:07)
[2023-09-02] MEDS: 0.9 % SODIUM CHLORIDE 10 ML INJ (11:05)
[2023-09-02] MEDS: CEFAZOLIN SODIUM 1,000 MG in 0.9 % SODIUM CHLORIDE 10 ML 10 MG IRR (11:06)
--- NOTE | 2023-09-02 14:08 | PC.NURSE ---
patient urinated a large amount prior to discharge
== END 2023-09-02 14:05 | disposition home or self-care (01) ==
PROVIDERS: PCP Nurse Practitioner Family; Visit Provider Surgery
PROC: (CPT 49505; principal; 2023-09-02 09:35)
DX: K40.90 Unilateral inguinal hernia, without obstruction or gangrene, not specified as recurrent (principal); I25.10 Atherosclerotic heart disease of native coronary artery without angina pectoris; J44.9 Chronic obstructive pulmonary disease, unspecified; I25.2 Old myocardial infarction; I10 Essential (primary) hypertension; Z95.5 Presence of coronary angioplasty implant and graft; Z79.82 Long term (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; Z79.02 Long term (current) use of antithrombotics/antiplatelets; F17.210 Nicotine dependence, cigarettes, uncomplicated; Z87.442 Personal history of urinary calculi; K21.9 Gastro-esophageal reflux disease without esophagitis; F41.0 Panic disorder [episodic paroxysmal anxiety]; N40.1 Benign prostatic hyperplasia with lower urinary tract symptoms; N13.8 Other obstructive and reflux uropathy; Z79.01 Long term (current) use of anticoagulants; F10.10 Alcohol abuse, uncomplicated; Z79.899 Other long term (current) drug therapy
CPT/HCPCS: 49505; 36415; 64488; 88302; 99999; C1781; J1094; J1170; J2704

== ENCOUNTER 2024-02-03 11:45 | Outpatient (RCR) | payer MEDICARE, SELFPAY ==
--- NOTE | 2024-01-21 07:38 | CR1_ITS ---
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
--- NOTE | 2024-02-03 13:39 | CR1_ITS ---
[facility] Test Date: 2024-02-03 Pat Name: RONNELL PERES Department: Room: - Gender: Male Tromper: : 1955 Requested By: JESSICA MCCRAY Order Number: [id number] Yury MD: JESSICA MCCRAY Interpretive Statements Session Date: Electronically Signed On 02-03-2024 23:11:40 EDT by JESSICA MCCRAY
--- NOTE | 2024-02-17 12:51 | CR1_ITS ---
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
--- NOTE | 2024-03-18 07:39 | CR1_ITS ---
The [facility] Test Date: 2024-03-18 Pat Name: RONNELL PERES Department: Room: - Gender: Male Accreditation Coordinator: : 1955 Requested By: JESSICA MCCRAY Order Number: [id number] Yury MD: JESSICA MCCRAY Interpretive Statements Session Date: Electronically Signed On 03-21-2024 22:44:13 EST by JESSICA MCCRAY
--- NOTE | 2024-04-19 09:54 | CR1_ITS ---
The [facility] Test Date: 2024-04-19 Pat Name: RONNELL PERES Department: Room: - Gender: Male Remittance Clerk: : 1955 Requested By: JESSICA MCCRAY Order Number: [id number] Reading MD: JESSICA MCCRAY Interpretive Statements Session Date: Electronically Signed On 04-19-2024 19:43:34 EST by JESSICA MCCRAY
== END 2024-04-26 15:24 | disposition home or self-care (01) ==
LOC: CR 11:45
PROVIDERS: PCP Nurse Practitioner Family
DX: I20.89 Other forms of angina pectoris (principal)
CPT/HCPCS: 93798

== ENCOUNTER 2024-06-11 10:49 | Outpatient (OUT) | payer MEDICARE, SELFPAY ==
--- NOTE | 2024-06-11 | XR_ITS ---
The [address] [address] Patient Name: RONNELL PERES MRN: [id number] date: 1955 Sex: M Assigned Patient Location: [facility] Current Patient Location: RAD Accession/Order Number: [id number] Exam Date: 06/11/2024 11:20 Report Date: 06/11/2024 17:02 At the request of: NELLY WALTERS Procedure: XR chest 2V EXAM: XR chest 2V HISTORY: J40 Bronchitis COMPARISON: 08/19/2023 TECHNIQUE: Upright PA and lateral chest x-ray FINDINGS: The heart is not enlarged and the vasculature is not distended. No acute infiltrate, effusion or pneumothorax is identified. The osseous structures are grossly intact. XR/XR chest 2V IMPRESSION: No acute infiltrate or evidence of cardiac decompensation. The overall appearance of the chest is essentially unchanged. Electronically authenticated by: SHIVA LEDBETTER Date: 06/11/2024 17:02
--- OUTSIDE RECORDS SUMMARY | 2024-06-11 10:54 | XMS_ITS | CCD ---
Author Organization [facility] Care Team Providers Care Business Analysis Analyst Name Role Phone YASMINE AMARAL Diana Unavailable Unavailable SELF, REFERRED Unavailable Unavailable RENNO, ANAS Unavailable Unavailable AHMED, ANDREW Unavailable Unavailable AR Unavailable Unavailable UNKNOWN, PROVIDER Unavailable Unavailable PHYSICIAN, DEFAULT Unavailable Unavailable PHYSICIAN, DEFAULT Unavailable Unavailable SELF, REFERRED Unavailable Unavailable Dylan Zaidi MD Primary Care Provider [phone] Dylan Zaidi Primary Care Physician CAM FORREST Attending Unavailable CAM FORREST Admitting Unavailable CAM FORREST Consulting Unavailable ROMEO, NELLY Primary Care Unavailable NELLY WALTERS Consulting Unavailable ROMEO, NELLY Primary Care Unavailable NELLY WALTERS Attending Unavailable NELLY WALTERS Admitting Unavailable HARISH ROBERTO Attending Unavailable HARISH ROEBRTO Admitting Unavailable DR DUSTIN TUCKER V Consulting [...] Unavailable DR DYLAN ZAIDI Primary Care Unavailable HERIBERTOHOTHBOUBACAR, MOHAMAD Consulting Unavailable Dylan Zaidi MD Primary Care Provider [phone] Dylan Zaidi MD Primary Care Provider [phone] Dylan Zaidi MD Primary Care Provider [phone] DYLAN ZAIID Primary Care Unavailable NORBERT NEFF Referring Unavailable NORBERT NEFF Referring Unavailable DYLAN ZAIDI Primary Care Unavailable DYLAN ZAIDI Primary Care Unavailable DYLAN ZAIDI Primary Care Unavailable NORBERT NEFF Referring Unavailable MD Aaron Kelsey Attending Provider [phone] Low, Aaron White Attending Unavailable Nill, Aaron White Admitting Unavailable NILL, Aaron White Attending Unavailable NILL, Aaron White Attending Unavailable NILL, Aaron White Attending Unavailable NILL, Aaron White Attending Unavailable NILL, Aaron White Attending Unavailable Timmis, Portillo Gtz Attending Unavailable Timmis, Portillo H Referring Unavailable Timmis, Portillo H Admitting Unavailable Timmis, Portillo H Attending Unavailable Timmis, Portillo H Referring Unavailable Timmis, Portillo H Admitting Unavailable ALGHOTHANI, MOHAMAD Attending Unavailable ALGHOTHANI, MOHAMAD Attending Unavailable ALGHOTHANI, MOHAMAD Attending Unavailable ALGHOTHANI, MOHAMAD Attending Unavailable JARAD, GUILLE A Attending Unavailable TIMMIS, PORTILLO H Referring Unavailable TIMMIS, PORTILLO H Attending Unavailable TIMMIS, PORTILLO H Attending Unavailable TIMMIS, PORTILLO H Attending Unavailable Allergies Allergy Classification Reported Allergen(s) Allergy Type Date of Onset Reaction(s) Facility (6 sources) Lisinopril; Translations: [lisinopril] Drug Allergy 3 Angioedema, Dysphagia (disorder) [facility] (5 sources) Lisinopril Propensity to adverse reactions 3 Angioedema [facility] Work Phone: (1 source) No Known Medication Allergies; Translations: [No Known Medication Allergies] Propensity to adverse reactions (disorder) [facility] Medications Current Medications Medication Drug Class(es) Dates Sig (Normalized) Sig (Original) acetaminophen 325 mg / oxyCODONE hydrochloride 5 mg oral tablet (3 sources) Opioid Agonist Start: 07-11-2021 End: 07-11-2021 oxyCODONE-acetamin ophen (PERCOCET) 5-325 MG per tablet 1 tablet Start: 02-23-2017 End: 07-14-2021 oxyCODONE-acetaminophen (PER COCET) 5-325 MG per tablet Indications: Urinary tract infection with hematuria, site unspecified , Ureteral calculus Take 1 tablet by mouth every 6 hours as needed for Pain for up to 3 days. Intended supply: 3 days. Take lowest dose possible to manage pain 12 tablet 0 07/11/2021 07/14/2021 Active amLODIPine 5 mg oral tablet (8 sources) Dihydropyridine Calcium Channel Joan Start: 12-19-2022 End: 12-19-2023 take 1 tablet by mouth in the morning amLODIPine (Norvasc) 5 MG tablet Take 5 mg by mouth in the morning. 12/19/2022 Active aspirin 81 mg delayed release oral tablet (20 sources) Platelet Aggregation Inhibitor, Nonsteroidal Anti-inflammatory Drug [...] hydrochloride 150 mg extended release oral tablet (6 sources) Aminoketone Start: 06-13-2022 take 1 tablet by mouth every twelve hours in the morning buPROPion SR (Wellbutrin SR) 150 MG 12 hr tablet Take 150 mg by mouth in the morning and 150 mg before bedtime. 06/13/2022 Active Start: 06-13-2022 take 1 tablet [...] 06/26/2021 Active clopidogrel 75 mg oral tablet (20 sources) [id number] Platelet Inhibitor Start: 07-09-2021 take 1 tablet by mouth in the morning clopidogrel (Plavix) 75 MG tablet Take 75 mg by mouth in the morning. 02/10/2023 Active docusate sodium 100 mg oral capsule (5 sources) Start: 07-16-2021 take 1 capsule by mouth three times daily as needed for constipation docusate sodium (COLACE) 100 MG capsule Take 1 capsule by mouth 3 times daily as needed for Constipation 60 capsule 1 07/16/2021 Active doxepin hydrochloride 10 mg oral capsule (9 sources) Tricyclic Antidepressant Start: 01-26-2023 take 1 capsule by mouth three times daily as needed doxepin (SINEquan) 10 MG capsule Take 10 mg by mouth 3 (three) times a day as needed. 01/26/2023 Active hydrOXYzine hydrochloride 25 mg oral tablet (6 sources) Antihistamine Start: 01-26-2023 take 1 tablet by mouth every six hours as needed hydrOXYzine HCl (Atarax) 25 MG tablet Take 25 mg by mouth every 6 (six) hours if needed. 01/26/2023 Active Start: 01-25-2023 End: 01-25-2023 hydrOXYzine HCl (ATARAX) tab let 25 mg hyoscyamine sulfate 0.125 mg sublingual tablet (1 source) Start: 02-13-2017 take 1 tablet under the tongue every six hours Hyoscyamine Sulfate Active 1 TAB SUBLINGUAL Q6H February 13, 2017 12:00am 24 hr isosorbide mononitrate 30 mg extended release oral tablet (11 sources) Nitrate Vasodilator Start: 06-13-2022 take 1 tablet by mouth in the morning, then take 1 tablet by mouth every twenty-four hours isosorbide mononitrate ER (Imdur) 30 MG 24 hr tablet Take 30 mg by mouth in the morning. 06/13/2022 Active lisinopril 5 mg oral tablet (15 sources) Angiotensin Converting Enzyme Inhibitor Start: 06-26-2021 End: 01-25-2023 take 1 tablet by mouth once daily lisinopril 5 mg Tab 5 mg = 1 tab(s), Oral, Daily, High blood pressure Start Date: 06/26/21 Status: Ordered LORazepam 1 mg oral tablet (1 source) Benzodiazepine Start: 02-16-2017 take 1 tablet by mouth three times daily Lorazepam (Ativan) 1 mg Tablet Active 1 MG PO Three times daily February 16, 2017 12:00am 24 hr metoprolol succinate 25 mg extended release oral tablet (20 sources) beta-Adrenergic Joan Start: 02-10-2023 take 1 tablet by mouth every twenty-four hours in the morning metoprolol succinate XL (Toprol-XL) 25 MG 24 hr tablet Take 12.5 mg by mouth in the morning. 02/10/2023 Active Start: 06-26-2021 take 1 tablet by cristal th once daily metoprolol 25 mg ER Tab 25 mg = 1 tab(s), Oral, Daily, High blood pressure Start Date: 06/26/21 Status: Ordered Start: 06-26-2021 metoprolol 25 mg ER Tab 12.5 mg = 0.5 tab(s), Oral, Daily, High blood pressure Start Date: 06/26/21 Status: Ordered nitroglycerin 0.4 mg sublingual tablet (14 sources) Nitrate Vasodilator Start: 03-01-2022 0.4 mg, Milner bLINGual, EVERY 5 MIN [...] (PYRIDIUM) tablet 200 mg polyethylene glycol [id number] mg powder for oral solution (4 sources) [...] Starting on Thu07/09/21 at 2000, Post-op Psyllium (7 sources) Start: 02-17-2023 Metamucil Oral, Daily, Refills(s) 0, Constipation Start Date: 02/17/23 Status: Ordered Start: 02-23-2017 Psyllium Husk (Metamucil) 3.4 gram/5.4 gram Powder Active 1 TBSP PO Daily February 23, 2017 12:00am psyllium (Metamu cil) 58.6 % packet Take 1 packet by mouth in the morning and 1 packet before bedtime. Mix and drink with at least 8 ounces of water or juice.. Active rosuvastatin calcium 40 mg oral tablet (20 sources) HMG-CoA Reductase Inhibitor Start: 02-10-2023 take 1 tablet by mouth at bedtime rosuvastatin (Crestor) 40 MG tablet Take 40 mg by mouth at bedtime. 02/10/2023 Active Start: 07-09-2021 take 40 mg [...] Active tamsulosin hydrochloride 0.4 mg oral capsule (20 sources) alpha-Adrenergic Joan Start: 11-25-2022 take 1 capsule by mouth every twenty-fo ur hours in the morning tamsulosin (Flomax) 0.4 MG 24 hr capsule Take 0.4 mg by mouth in the morning. 11/25/2022 Active Start: 02-13-2017 take 1 capsule by [facility] once daily Flomax 0.4 mg Cap 0.4 mg = 1 cap(s), Oral, Daily, # 30 cap(s), Refills(s) 3, Pharmacy: [id number], 168, cm, 06/26/21 9:30:00 EST, Height/Length Dosing, 65, kg, 06/26/21 9:30:00 EST, Weight Dosing Start Date: 06/26/21 Status: Ordered varenicline 1 mg oral tablet (10 sources) Partial Cholinergic Nicotinic Agonist Start: 10-22-2022 End: 03-30-2024 varenicline (Chantix) 1 MG tablet Take 1 mg by mouth. 10/22/2022 03/30/2024 Discontinued (Therapy completed) Completed/Discontinued Medications Medication Drug Class(es) Dates Sig (Normalized) Sig (Original) acetaminophen 325 mg oral tablet (1 source) Start: 07-09-2021 End: 07-09-2021 acetaminophen (TYLENOL) tablet 650 mg acetaminophen 325 mg / HYDROcodone bitartrate 5 mg oral tablet (6 sources) Opioid Agonist Start: 07-09-2021 End: 07-09-2021 HYDROcodone-acetamin ophen (NORCO) 5-325 MG per tablet 1 tablet Start: 07-09-2021 End: 07-09-2021 HYDROcodone-acetaminophen (N ORCO) 5-325 MG per tablet 1 tablet Start: 02-13-2017 End: 07-11-2021 take 2 tablets by mouth [...] mg IVPB in 50 mL D5W minibag cephalexin 500 mg oral capsule (2 sources) Cephalosporin Antibacterial Start: 02-23-2017 End: 03-02-2017 take 1 capsule by mouth twice daily Cephalexin (Keflex) 500 mg capsule Discontinued 500 MG PO Twice daily 14 February 23, 2017 12:00am March 02, 2017 12:02am Start: 02-16-2017 End: 02-23-2017 take 1 capsule by mouth every twelve hours Cephalexin (Keflex) 500 mg capsule Discontinued 500 MG PO Q12H February 16, 2017 12:00am February 23, 2017 3:42pm 200 ml ciprofloxacin 2 mg/ml injection (3 [...] 1 ml ketorolac tromethamine 15 mg/ml cartridge (4 sources) Nonsteroidal Anti-inflammatory Drug, Cyclooxygenase Inhibitor Start: 07-11-2021 End: 07-11-2021 ketorolac (TORADOL) injection 15 mg Start: 07-09-2021 End: 07-09-2021 ketorolac (TORADOL) injectio n 30 mg Start: 02-13-2017 End: 02-23-2017 take 10 mg by mouth every six hours toradol Discontinued 10 MG PO Every 6 hours February 16, 2017 1:33pm February 23, 2017 3:42pm 1 ml morphine sulfate 4 mg/ml cartridge [...] Problem Classification Problem Date Documented Date Episodic/Chronic Acute myocardial infarction (8 sources) ST elevation (STEMI) myocardial infarction involving other sites; Translations: [Myocardial infarction] Onset: 11-10-2017 02-10-2023 Chronic Alcohol-related disorders (13 sources) Alcohol abuse, uncomplicated; Translations: [Alcohol abuse] Onset: 11-10-2017 11-04-2021 Chronic Anxiety disorders (12 sources) Anxiety; Translations: [Anxiety disorder, unspecified] Onset: 12-12-2022 06-26-2021 Chronic Cardiac dysrhythmias (2 sources) Palpitations; Translations: [Palpitations] Onset: 12-07-2023 Episodic Chronic obstructive pulmonary disease and bronchiectasis (18 sources) Chronic obstructive lung disease; Translations: [Emphysema, unspecified] Onset: 12-21-2020 11-04-2021 Chronic Coronary atherosclerosis and other heart disease (20 sources) Atherosclerotic heart disease of [place] coronary artery without angina pectoris; Translations: [History of myocardial infarction] Onset: 11-10-2017 Resolved: 02-10-2023 11-04-2021 Chronic Disorders of lipid metabolism (19 sources) Pure hyperglyceridemia; Translations: [Hyperlipidemia] Onset: 11-10-2017 06-26-2021 Chronic Esophageal disorders (17 sources) Gastroesophageal reflux disease; Translations: [Gastro-esophageal reflux disease without esophagitis] Onset: 09-28-2018 11-04-2021 Chronic Essential hypertension (20 sources) Essential (primary) hypertension; Translations: [Hypertensive disorder] Onset: 11-10-2017 06-26-2021 Chronic Fluid and electrolyte disorders (1 source) Hypokalemia; Translations: [HYPOKALEMIA] Onset: 11-10-2017 Episodic Genitourinary symptoms and ill-defined conditions (3 sources) Incomplete emptying of bladder; Translations: [Retention of urine, unspecified] Episodic Hyperplasia of prostate (18 sources) Benign prostatic hypertrophy with outflow obstruction; Translations: [Benign prostatic hyperplasia with lower urinary tract symptoms] Onset: 07-29-2021 07-29-2021 Chronic Nausea and vomiting (1 source) Nausea; Translations: [Nausea] Episodic Other congenital anomalies (5 sources) Porokeratosis; Translations: [Other specified congenital malformations of skin] Onset: 12-12-2022 02-10-2023 Chronic Other ear and sense organ disorders (2 sources) Asymmetrical sensorineural hearing loss; Translations: [Sensorineural hearing loss, bilateral] 06-17-2023 Chronic Other ear and sense organ disorders (2 sources) Bilateral hearing loss; Translations: [Sensorineural hearing loss, unilateral, left ear, with restricted hearing on the contralateral side] 03-30-2024 Chronic Other ear and sense organ disorders [...] of mental health and substance abuse codes (6 sources) Tobacco use and exposure - finding 11-21-2021 Chronic Unclassified (2 sources) Unknown / UNK(Unknown) Onset: 11-10-2017 Unclassified (7 sources) Body mass index 20-24 - normal 11-08-2021 Unclassified (7 sources) Drug therapy finding 06-26-2021 Unclassified (2 sources) COUGH, UNSPECIFIED; Translations: [COUGH, UNSPECIFIED] Onset: 04-16-2021 Unclassified (6 sources) Patient encounter status 11-21-2021 Urinary tract infections (1 source) Urinary tract infectious disease; Translations: [Urinary tract infection, site not specified] Episodic Viral infection (4 sources) COVID-19; Translations: [COVID-19] Onset: 04-19-2021 Past or Other Problems Problem Classification Problem Date Documented Da te Episodic/Chronic Abdominal hernia (13 sources) Left inguinal hernia ; Translations: [Inguinal hernia] Onset: 12-12-2022 11-21-2021 Episodic Abdominal pain (11 sources) Left lower quadrant pain; Translations: [Left lower quadrant pain] Onset: 05-23-2021 Episodic Calculus of urinary tract (20 sources) Personal [...] Onset: 04-16-2021 Episodic Diabetes mellitus without complication (6 sources) Other abnormal glucose; Translations: [Hyperglycemia] Onset: 05-27-2021 02-10-2023 Episodic Immunizations and screening for infectious disease (1 source) Encounter for immunization; Translations: [ENCOUNTER FOR IMMUNIZATION] Onset: 05-08-2021 Episodic Nonspecific chest pain (14 sources) Precordial pain; Translations: [Chest pain, unspecified] Onset: 09-28-2018 Episodic Other aftercare (1 source) intermediate accountant (current) use of antithrombotics/an tiplatelets; Translations: [STREET AND BUILDING DECORATOR ANTITHROMBOT/ANTIP LATLETS] Onset: 07-19-2021 Episodic Other aftercare (1 source) custodial (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; Translations: [FCI CURRENT USE OF ASPIRIN] Onset: 07-19-2021 Episodic Other aftercare (1 source) Other group home (current) drug therapy; Translations: [OTH STREET AND BUILDING DECORATOR CURRENT DRUG THERAPY] Onset: 06-25-2021 Episodic Other aftercare (5 sources) Drug therapy finding; Translations: [intermediate accountant (current) use of anticoagulants] Onset: 12-12-2022 02-10-2023 Episodic Other aftercare (2 sources) Patient encounter status; Translations: [intermediate accountant (current) use of antithrombotics/an tiplatelets] Onset: 12-12-2022 02-10-2023 Episodic Other aftercare (3 sources) Long-term current use of drug therapy; Translations: [intermediate accountant (current) use of antithrombotics/an tiplatelets] Onset: 12-12-2022 02-10-2023 Episodic Other diseases of kidney and ureters (12 sources) Hydronephrosis; Translations: [Unspecified hydronephrosis] Onset: 12-12-2022 06-26-2021 Episodic Other injuries and conditions due to external causes (5 sources) Angioedema; Translations: [Angioneurotic edema, initial encounter] Onset: 12-12-2022 02-10-2023 Episodic Other lower respiratory disease (1 source) Dyspnea, unspecified; Translations: [DYSPNEA UNSPECIFIED] Onset: 06-25-2021 Episodic Other lower respiratory disease (5 sources) Dyspnea on exertion; Translations: [Other forms of dyspnea] Onset: 12-06-2021 02-10-2023 Episodic Other upper respiratory disease (9 sources) Epistaxis; Translations: [Epistaxis] Onset: 07-18-2021 Episodic Other upper respiratory disease (5 sources) Lesion of nose; Translations: [Other specified disorders of nose and nasal sinuses] Onset: 02-11-2023 02-11-2023 Episodic Other upper respiratory disease (5 sources) Deviated nasal septum; Translations: [Deviated nasal septum] Onset: 02-11-2023 02-11-2023 Episodic Residual codes; unclassified (5 sources) Tobacco user; Translations: [Tobacco use] Onset: 09-28-2018 02-10-2023 Episodic Residual codes; unclassified (1 source) Personal history of other specified conditions; Translations: [Personal history of other specified conditions] Onset: 01-25-2023 Episodic Substance-related disorders (14 sources) Nicotine dependence, cigarettes, uncomplicated; Translations: [Smoker] Onset: 11-10-2017 Resolved: 02-10-2023 11-04-2021 Chronic Unclassified (1 source) COUGH, UNSPECIFIED; Translations: [COUGH, UNSPECIFIED] Onset: 04-13-2021 Results Test Name Value Interpretation Reference Range Facility Office Visiton 12-07-2023 Follow-up visit [id number] JaCainmellisa Johnson 1955 Date Provider Department Center 12/07/2023 [id number] FORREST [facility] Family History Problem Relation Age of Onset Heart attack Mother Family Status - Relation Status Age at Mother Level of Service:62682 AR OFFICE/OUTPATIENT ESTABLISHED MOD MDM 30 MIN Normal [facility] Ambulatory Visit Summaryon 0 09-23-2023 Ambulatory Visit Summary RONNELL PERES :1955 Visit Date:09/23/2023 Ambulatory Visit Instructions Your Care Team Attending Physician - LOW AVILA, Aaron White Primary Care Physician - Dylan Zaidi MD This Is Your Medications List amlodipine (Norvasc 5 mg Tab) aspirin (aspirin 81 mg oral capsule) clopidogrel (Plavix 75 mg Tab) doxepin (doxepin 10 mg Cap) isosorbide mononitrate (isosorbide mononitrate 30 mg ER Tab) metoprolol (metoprolol 25 mg ER Tab) psyllium (Metamucil) rosuvastatin tamsulosin (Flomax 0.4 mg Cap) varenicline (varenicline 1 mg oral tablet) Procedures Performed Repair of left inguinal hernia (09/02/2023), Nasal cautery (02/19/2023), Cystoscopic removal of ureteric stent (03/05/2017), Cystoscope (02/23/2017), Cystoscope (02/16/2017), Insertion of renal artery stent, Lithotripsy, Nasal cautery, Placement of stent in cardiac conduit. Medications What How Much When Instructions Unchanged amlodipine (Norvasc 5 mg Tab) 1 Tablets By Mouth Every day Unchanged aspirin (aspirin 81 mg oral capsule) 1 Capsules By Mouth Every day Unchanged clopidogrel (Plavix 75 mg Tab) 1 Tablets By Mouth Every day Unchanged doxepin (doxepin 10 mg Cap) 1 Capsules By Mouth 3 times a day as needed for Anxiety Unchanged isosorbide mononitrate (isosorbide mononitrate 30 mg ER Tab) 1 Tablets By Mouth Once a day (in the morning) Unchanged metoprolol (metoprolol 25 mg ER Tab) 1 Tablets By Mouth Every day Unchanged psyllium (Metamucil) By Mouth Every day Unchanged rosuvastatin 40 Milligram By Mouth Every day Unchanged tamsulosin (Flomax 0.4 mg Cap) 1 Capsules By Mouth Every day Unchanged varenicline (varenicline 1 mg oral tablet) 1 Tablets By Mouth 2 times a day Allergies lisinopril (Dysphagia) Problems Ongoing - Any [...] you for choosing us for your care. Shira Avila [facility] General Surgery Office/Clini c Noteon 09-23-2023 General Surgery Office/Clinic Note Chief Complaint post operative follow up HPI Staff 21 day post operative follow up post left inguinal hernia repair. Reports minimal discomfort, especially positional. No use of pain medication. Denies bleeding or drainage. Bowels moving well. History of Present Illness 3 weeks s/p LIHR for indirect hernia; doing well, mild soreness with activity; not doing any strenuous activities; no pain meds, no drainage form incision or swelling. Review of Systems ROS - Provider Constitutional: no fever, no [...] in stool, no change in bowel habits, no abdominal pain, no hepatitis. Genitourinary: no kidney [...] and are negative or noncontributory. Physical Exam abd: soft, nondistended, nondistended; incision without erythema or drainage, no ecchymoses or induration. Assessment/Plan 1. Reducible left inguinal hernia (K40.90: Unilateral inguinal hernia, without obstruction or gangrene, not specified as recurrent) doing well, gradually resume regular activities in 1 week, call with problems/questions. Follow-up No qualifying data available Problem List/Past Medical History Ongoing Alcohol abuse Anticoagulated Antiplatelet or antithrombotic long-term use BMI 23.0-23.9, adult BPH with urinary obstruction Chronic obstructive pulmonary disease GERD (gastroesophageal reflux disease) History of kidney stones History of myocardial infarction Hyperlipidemia Hypertension Kidney stone Reducible left inguinal hernia Smoker Tobacco use Ureteral stone with hydronephrosis Historical Anxiety Procedure/Surgical History Repair of left inguinal hernia (09/02/2023), Nasal cautery (02/19/2023), Cystoscopic removal of ureteric [...] thought it made him not sleep Allergies lisinopril (Dysphagia) Social History Alcohol Current, Beer, 3-5 times per week, 11/08/2021 Substance Abuse - Denies Substance Abuse, 11/08/2021 Tobacco 10 or more cigarettes (1/2 pack or more)/day in last 30 days Tobacco Use:. Former smokeless tobacco user, quit more than 30 days ago Smokeless Tobacco Use:. Cigarettes, 0.5 per day. Started age 16.0 Years. Yes, 10/22/2022 Family History Aneurysm: Mother. Cirrhosis of liver: Father. Primary malignant neoplasm of lung: Grandparent. Stroke: Mother. Immunizations Vaccine Date Status Comments influenza virus vaccine, inactivated - Not Given Patient Refuses Normal [facility] Comment on above: Result Comment: Elec tronically Signed By: LOW AVILA, Aaron Valerio\Date and Time Signed: 09/23/23 15:01 EDT General Surgery Office/Clini c Noteon 09-13-2023 General Surgery Office/Clinic Note Chief Complaint post operative follow up HPI Staff 7 day post operative follow up post left inguinal hernia repair. Reports minimal discomfort, no use of pain medication. Denies bleeding or drainage. Bowels moving well. History of Present Illness 1 week s/p LIHR with mesh for indirect inguinal hernia; doing well, mild soreness; no pain meds; no drainage from incision; normal bms, voiding well. Review of Systems ROS - Provider Constitutional: no fever, no [...] in stool, no change in bowel habits, no abdominal pain, no hepatitis. Genitourinary: no kidney [...] and are negative or noncontributory. Physical Exam abd: soft, nontender, nondistended; incision without erythema or drainage, minimal induration, no ecchymoses. Assessment/Plan 1. Reducible left inguinal hernia (K40.90: Unilateral inguinal hernia, without obstruction or gangrene, not specified as recurrent) doing well, continue no lifting > 10 lbs for 3 weeks; f/u in 2 weeks; call sooner if problems/questions. Follow-up No qualifying data available Problem List/Past Medical History Ongoing Alcohol abuse Anticoagulated Antiplatelet or antithrombotic long-term use BMI 23.0-23.9, adult BPH with urinary obstruction Chronic obstructive pulmonary disease GERD (gastroesophageal reflux disease) History of kidney stones History of myocardial infarction Hyperlipidemia Hypertension Kidney stone Reducible left inguinal hernia Smoker Tobacco use Ureteral stone with hydronephrosis Historical Anxiety Procedure/Surgical History Repair of left inguinal hernia (09/02/2023), Nasal cautery (02/19/2023), Cystoscopic removal of ureteric [...] thought it made him not sleep Allergies lisinopril (Dysphagia) Social History Alcohol Current, Beer, 3-5 times per week, 11/08/2021 Substance Abuse - Denies Substance Abuse, 11/08/2021 Tobacco 10 or more cigarettes (1/2 pack or more)/day in last 30 days Tobacco Use:. Former smokeless tobacco user, quit more than 30 days ago Smokeless Tobacco Use:. Cigarettes, 0.5 per day. Started age 16.0 Years. Yes, 10/22/2022 Family History Aneurysm: Mother. Cirrhosis of liver: Father. Primary malignant neoplasm of lung: Grandparent. Stroke: Mother. Immunizations Vaccine Date Status Comments influenza virus vaccine, inactivated - Not Given Patient Refuses Normal [facility] Comment on above: Result Comment: Elec tronically Signed By: LOW AVILA, Aaron Valerio\Date and Time Signed: 09/13/23 15:45 EDT Ambulatory Visit Summaryon 0 09-09-2023 Ambulatory Visit Summary RONNELL PERES :1955 Visit Date:09/09/2023 Ambulatory Visit Instructions Your Care Team Attending Physician - LOW AVILA, Aaron White Primary Care Physician - Dylan Zaidi MD This Is Your Medications List amlodipine (Norvasc 5 mg Tab) aspirin (aspirin 81 mg oral capsule) clopidogrel (Plavix 75 mg Tab) doxepin (doxepin 10 mg Cap) isosorbide mononitrate (isosorbide mononitrate 30 mg ER Tab) metoprolol (metoprolol 25 mg ER Tab) psyllium (Metamucil) rosuvastatin tamsulosin (Flomax 0.4 mg Cap) varenicline (varenicline 1 mg oral tablet) Procedures Performed Repair of left inguinal hernia (09/02/2023), Nasal cautery (02/19/2023), Cystoscopic removal of ureteric stent (03/05/2017), Cystoscope (02/23/2017), Cystoscope (02/16/2017), Insertion of renal artery stent, Lithotripsy, Nasal cautery, Placement of stent in cardiac conduit. What to do next Scheduled Follow-Up Appointments Thursday. 2023 2:40 PM EDT With: Aaron KELSEY MD Where: [facility] General Surgery [facility] Operative Reporton Operative Report [id number]#1.00TIFF [facility] Pathology Noteon 09-07-2023 Pathology Note [id number]#1.00TIFF [facility] [place] 09-02-2023 L Specimen: [id number] eceived: 09/03/23 Status: ALLAN Mcginnis Num: [id number] Spec Type: Surgical Subm Dr: Aaron Kelsey MD FACS Tissues: A Hernia Sac (INGUINAL HERNIA) Procedures: HE, Gross/Micro L2 Age/ Patient Sex Location Account Attending Physician Ronnell Peres 68/M LABELL [id number] Aaron Kelsey MD FACS SPEC NUM: [id number] RECD: 09/03/23 STATUS: ALLAN ENGLISH NUM: [id number] AVA: 09/02/23- [facility] DR: Aaron Kelsey MD FACS ENTERED: 09/03/[address] [facility] [address]: Tosin Rooney SPEC TYPE: Surgical DEPT: JESSICA LOREDO ORDERED: HE, Gross/Micro L2 ORDERED: HE, Gross/Micro L2 Pathological Diagnosis Soft tissue, left inguinal area, repair excision: -Apparently slightly irregularly thickened and incarcerated inguinal herniorrhaphy membrane with mildly associated fibrosis and congestion Gross Description Received in formalin, labeled with the patient's name and hernia sac are 2 proctor-pink to purple membranous tissue fragments measuring in aggregate 2.6 x 2.4 x 0.6 cm. Sectioning through the specimen reveals unremarkable, slightly hemorrhagic cut surfaces. Upholstery Cleaner sections are submitted in A1. Clinical history: Inguinal hernia TW CPT Codes 76867 -- -- Specimen: [id number] Received: 09/03/23 Status: ALLAN Req Num: [id number] Spec Type: Surgical Subm Dr: Aaron Kelsey MD FACS Tissues: A Hernia Sac (INGUINAL HERNIA) Procedures: [place]WT[place], Gross/Micro L2 -- Patient: Ronnell Peres [id number] (Continued) -- Signed (signature on file) Christianne Ashraf MD 09/07/23 0814 Normal [facility] PSA, Screeningon 08-24-2023 Prostatic Spec. Ag 1.30 ng/mL Normal 0.00-4.00 [facility] Comment on above: Result Comment: The Hari ECLIA assay is used. Results obtained with different assay methods cannot be used interchangeably. Performed By: #### P SAS #### [email or web address] [facility] [place] [address] Business Systems Technician: Austin Montes MD XR ABDOMEN (KUB) (SINGLE [...] Aaron Davalos MD 08/24/23 Final result Normal [facility] Insurance Correspondenceon 0 08-21-2023 Insurance Correspondence [id number]#1.00TIFF Normal [facility] RAD - MISCon 08-21-2023 RAD - MIS [id number]#1.00TIFF Normal [facility] RAD - MISCon 08-20-2023 RAD - MIS [id number]#1.00TIFF Normal [facility] Consent for Procedure/Surger yon 07-21-2023 Consent for Procedure/Surgery [id number]#1.00TIFF [facility] Ambulatory Visit Summaryon 0 07-17-2023 Ambulatory [...] you for choosing us for your care. Shira [facility] General Surgery Office/Clini c Noteon 07-17-2023 General [...] Illness 68 yo male with h/o CAD, MS, htn, hyperlipidemia, COPD, presents for reevaluation of [...] sleep Allergies lisinopri (more content not included)... [facility] Comment on above: Result Comment: Elec tronically Signed By: LOW AVILA, Aaron Valerio\Date and Time Signed: 07/17/23 18:57 EST Formson 07-13-2023 Forms [id number]#1.00TIFF [facility] Office Visiton 07-03-2023 Follow-up visit [id number] Ronnell Peres 1955 M Date Provider Department Center 07/03/2023 3848-[facility] Family History Problem Relation Age of Onset Heart attack Mother Family Status - Relation Status Age at Mother Level of Service:42198 AR OFFICE/OUTPATIENT ESTABLISHED MOD MDM 30 MIN Normal [facility] IntraOperative Documentson IntraOperative Documents [id number]#1.00TIFF [facility] Consent for Anesthesiaon Consent for Anesthesia [id number]#1.00TIFF [facility] Discharge Instructionson Discharge Instructions [id number]#1.00TIFF [facility] IntraOperative Documentson IntraOperative Documents [id number]#1.00TIFF [facility] Physician Orderon 02-20-2023 Physician Order [id number]#1.00TIFF [facility] Preoperative Documentson Preoperative Documents [id number]#1.00TIFF [facility] Progress Note-Physicianon Progress Note-Physician Patient: RONNELL PERES Age: 68 years Sex: Male : 1955 Associated Diagnoses: None Author: MD De La Vega Ahmad F Postoperative Information Postoperative disposition: Postoperative disposition: To PACU. Optimetrix number: Optimetrix number [id number]. Anesthetic utilized: General. Health Status Allergies: Allergic [...] when meets criteria ( To home ). Normal [facility] Comment on above: Result Comment: Elec [...] Daily, # 30 cap(s), Refills(s) 3, Pharmacy: [facility], 168, cm, 06/26/21 9:30:00 EST, Height/Length [...] History of kidney stones / SNOMED CT 0303977999 / Confirmed Chronic obstructive pulmonary disease / SNOMED CT 64806982 / Confirmed History of myocardial infarction / SNOMED CT 0126373186 / Confirmed Hyperlipidemia / SNOMED CT 95015074 / Confirmed Hypertension / SNOMED CT 9425694218 / Confirmed Kidney stone / SNOMED CT 785734270 / Confirmed BPH with urinary obstruction / SNOMED CT 6032939068 / Confirmed Ureteral stone with hydronephrosis / SNOMED CT 82331056 / Confirmed Anticoagulated / SNOMED CT 806805887 / Confirmed GERD (gastroesophageal reflux disease) / SNOMED CT 972643401 / Confirmed Smoker / SNOMED CT 701308841 / Confirmed Alcohol abuse / SNOMED CT 64393283 / Confirmed BMI 22.0-22.9, adult / SNOMED CT 3495601695 / Confirmed Reducible left inguinal hernia / SNOMED CT 137417105 / Confirmed Antiplatelet or antithrombotic long-term use / SNOMED CT 986427145 / Confirmed Tobacco use / SNOMED CT 811389626 / Confirmed Resolved: Anxiety / SNOMED CT 72889080 Histories Past Medical History: Resolved Anxiety (61709112): Resolved. Family History: Primary malignant neoplasm of lung Grandparent Stroke Mother Cirrhosis of liver Father Aneurysm Mother Procedure history: Right Nasal cautery (935780670) on 02/19/2023 at 68 Years. Cystoscopic removal of ureteric stent (661834471) on 03/05/2017 at 62 Years. Cystoscope/stone extraction/Rt. stent replacement (58520289) on 02/23/2017 at 62 Years. Cystoscope/RG/ureteroscopy/Rt. stent placement (47943912) on 02/16/2017 at 62 Years. Placement of stent in cardiac conduit (2062808967). Lithotripsy (546432541). Insertion of renal artery stent (7415744208). Nasal cautery (572354789). Social History Social & Psychosocial Habits Alcohol [...] results Radiology results ECG interpretation Condition Plan [place] [employer] Anesthesiologists (ASA) physical status classification: Class III. Anesthetic Preoperative Plan Anesthesia: General. . Anesthetic plan, risks, benefits, and alternatives discussed with the patient and/or family. Risks discussed: nausea, vomiting, headache, sore throat, dental injury, serious complications. Patient verbalized understanding. Communication: face to face with patient 5 minutes. [facility] Comment on above: Result Comment: Elec tronically Signed By: MD eCferino, Jossie Lu\.br\Date and Time Signed: 02/20/23 14:56 EDT Consent for Procedure/Surger yon 02-19-2023 Consent for Procedure/Surgery [id number]#1.00TIFF [facility] Consent for Treatmenton 02-08 Consent for Treatment [id number]#1.00TIFF Normal [facility] Discharge Instructionson Discharge Instructions RONNELL [...] completing your survey. Thank you for choosing [facility]. Patient Portal You may access all of your results and other medical record information on our secure patient portal. If you are not signed up for this yet, please contact [employer] at [phone] to get signed up today. Patient Name: RONNELL PERES I have received this information and my questions have been answered. Patient/Upholstery Cleaner Name: Patient/Upholstery Cleaner Signature: __ (more content not included)... Normal [facility] Comment on above: Result Comment: Elec tronically Signed By: Jeramie HADLEY, Christian Dhaliwal\.br\Date and Time Signed: 02/19/23 13:08 EDT H&P Updateon 02-19-2023 H&P Update [id number]#1.00TIFF [facility] Inpatient Patient Summaryon 02-19-2023 Inpatient Patient Summary [place] [id number] [facility] Clinical Discharge Instructions PERSON INFORMATION Name: [...] Mouth 2 times a day. Comment: Normal [facility] Main OR Intraoperative Recor don 02-19-2023 Main OR Intraoperative Record IntraOp Document Type FT Summary Primary Physician: Portillo Ludwig MD Finalized Date/Time: 02/19/23 13:57:10 Pt. Name: RONNELL PERES Elizabeth /Sex: 1955 Male Med Rec #: [id number] Physician: Portillo Ludwig MD Financial #: [id number] Pt. Type: A Room/Bed: [place] [address] Admit/Disch: 02/19/23 08:47:56 - 02/19/23 13:45:00 Institution: [...] Entry 2 Entry 3 Case Attendee Orlando NAPOLES, INDUSTRIAL THERAPIST, Portillo Liu MD, Terry T N. Role Performed INDUSTRIAL THERAPIST Surgeon - Primary Winding Operator - Primary Time In 02/19/23 11:29:00 02/19/23 11:41:00 02/19/23 11:29:00 Time Out 02/19/23 11:58:00 02/19/23 11:50:00 02/19/23 11:58:00 Procedure NASAL ENDOSCOPY(Right) NASAL ENDOSCOPY(Right) NASAL ENDOSCOPY(Right) Comments CEFERINO DE SANTIAGO ANESTHESIA BROKE MAN Last Modified By: Ivet PRINCIPAL SECRETARY, Evelina Monzon RN, Andrew Monzon RN, Andrew Velasco 02/19/23 13:54:59 02/19/23 12:09:31 02/19/23 12:09:31 Entry 4 Entry 5 Entry 6 Case Attendee Zonia Ribera CST, Justice Monzon RN, Andrew Velasco Role Performed Scrub - Primary Scrub - Relief Winding Operator - Primary Time In 02/19/23 11:29:00 02/19/23 11:38:00 02/19/23 11:47:00 Time Out 02/19/23 11:39:00 02/19/23 11:58:00 02/19/23 11:58:00 Procedure NASAL ENDOSCOPY(Right) NASAL ENDOSCOPY(Right) NASAL ENDOSCOPY(Right) Comments Last Modified By: Nicolás RN, Andrew Monzon RN, Andrew Monzon RN, Andrew Velasco 02/19/23 12:09:31 02/19/23 12:09:31 02/19/23 12:09:32 Perioperative [...] (If Applicable) PreOp Antibiotic No Time Out Orlando NAPOLES, FRANCES, Queen Lawson Peoples NJenae, Marin AVILA, Jemal Andre Terry T, Wilhelm [...] WITH CAUTERY Primary Procedure Yes Primary Surgeon Marin AVILA, Portillo Gtz Start 02/19/23 11:43:00 Stop 02/19/23 11:49:00 Anesthesia [...] and tissue Entry 1 Skin Integrity Intact, [place], Warm, and Skin Abnormality No Dry Outcomes [...] Procedure NASA (more content not included)... Normal [facility] Main OR PACU I Recordon 10-1 2-2023 Main OR PACU I Record PACU Phase I Document Type FT Summary Primary Physician: Portillo Ludwig MD Finalized Date/Time: 02/19/23 12:35:40 Pt. Name: RONNELL PERES /Sex: 1955 Male Med Rec #: [id number] Physician: Portillo Ludwig MD Financial #: [id number] Pt. Type: A Room/Bed: [place] [address] Admit/Disch: 02/19/23 08:47:56 - Institution: Case Times [...] Signed By: Sherry Brady RN 02/19/23 12:35 Normal [facility] Main OR PACU II Recordon Main OR PACU II Record PACU Phase II Document Type FT Summary Primary Physician: Portillo Ludwig MD Finalized Date/Time: 02/19/23 13:43:43 Pt. Name: RONNELL PERES./Sex: 1955 Male Med Rec #: [id number] Physician: Portillo Ludwig MD Financial #: [id number] Pt. Type: A Room/Bed: [place] [address] Admit/Disch: 02/19/23 08:47:56 - Institution: Case Times [...] By: Christian Bobo RN 02/19/23 13:43 Normal [facility] Monitor Recordon 02-19-2023 Monitor Record [id number]#1.00TIFF Normal [facility] Operative Reporton Operative Report SURGERY DATE: [...] condition. Portillo Ludwig Jr., M.D. Dictated: 02/19/2023 [id number] Transcribed: 02/19/2023 cc:Dylan Zaidi M.D. [facility] Comment on above: Result Comment: Elec tronically Signed By: Marin AVILA, Portillo Gtz\.br\Date and Time Signed: 02/19/23 15:00 EDT Outpatient Surgery Discharge Instructionon 02-19-2023 Outpatient Surgery Discharge Instruction [place] [id number] Patient Discharge Instructions PERSON INFORMATION Name: RONNELL [...] Signature Date Follow up: With: Address: When: Portillo Ludwig Comments: As needed Pharmacy Information: You may receive a survey from Johana Roque asking you to rate your care experience. Your feedback is important and will help us understand what we do well and how we can improve the quality of care we provide to you, your loved ones and our community. It?s an honor to serve you. Thank you for choosing [facility] HERE ARE THE MEDICATION CHANGES THAT OCCURRED [...] PATIENT EDUCATION INFORMATION Instructions: Medication Leaflets: Normal [facility] Patient Education - Texton 1 0-12-2023 Patient Education - Text Normal [facility] XR Chest 2 Viewson 3 XR [...] mGy = na DAP = na Normal [facility] Auto Diffon 02-17-2023 Basophils/100 WBC (Bld) 1.0 % Normal 0.0-2.0 [facility] Comment on above: Order Comment: Order Added by Discern Expert. Performed By: #### 2 [id number], [id number] #### [facility] [address] [place] [address] Basophils/Leukocy keegan Auto (Bld) [Pure # fraction] 0.1 E9/L Normal 0.0-0.2 [facility] Comment on above: Order Comment: Order Added by Discern Expert. Performed By: #### 2 980552, 2787585 #### [facility] [address] [place] [address] Eosinophils/100 WBC (Bld) 1.4 % Normal 0.0-8.0 [facility] Comment on above: Order Comment: Order Added by Discern Expert. Performed By: #### 2 876283, 6072105 #### [facility] [address] [place] [address] Eosinophils/Leuko cytes Auto (Bld) [Pure # fraction] 0.1 E9/L Normal 0.0-0.5 [facility] Comment on above: Order Comment: Order Added by Discern Expert. Performed By: #### 2 794556, 6553471 #### [facility] [address] [place] [address] Lymphocytes/100 WBC (Bld) 25.0 % Normal 14.0-50.0 [facility] Comment on above: Order Comment: Order Added by Discern Expert. Performed By: #### 2 121586, 6628079 #### [facility] [address] [place] [address] Lymphocytes/Leuko cytes Auto (Bld) [Pure # fraction] 1.8 E9/L Normal 1.0-4.0 [facility] Comment on above: Order Comment: Order Added by Discern Expert. Performed By: #### 2 984321, 6593595 #### [facility] [address] [place] [address] Monocytes/100 WBC (Bld) 5.5 % Normal 4.0-14.0 [facility] Comment on above: Order Comment: Order Added by Discern Expert. Performed By: #### 2 298839, 6384898 #### [facility] [address] [place] [address] Monocytes/Leukocy keegan Auto (Bld) [Pure # fraction] 0.4 E9/L Normal 0.2-1.0 [facility] Comment on above: Order Comment: Order Added by Discern Expert. Performed By: #### 2 340112, 0526609 #### [facility] [address] [place] [address] Neutrophils/100 WBC (Bld) 67.1 % Normal 36.0-75.0 [facility] Comment on above: Order Comment: Order Added by Discern Expert. Performed By: #### 2 103986, 1652127 #### [facility] [address] [place] [address] Neutrophils/Leuko cytes Auto (Bld) [Pure # fraction] 4.8 E9/L Normal 2.0-7.5 [facility] Comment on above: Order Comment: Order Added by Discern Expert. Performed By: #### 2 219706, 8316551 #### [facility] [address] [place] [address] BUNon 02-17-2023 Urea nitrogen [Mass/Vol] 16 mg/dL Normal 5-21 [facility] Comment on above: Performed By: #### 1 1101034, 6226362, 2411829, 9712089, 5200272 ####[facility] [address] [place] [address] CBC w/ Auto Diffon Erythrocyte distribution width (RBC) [Ratio] 13.4 % Normal 10.9-14.2 [facility] Comment on above: Performed By: #### 2 730264, 6845654 #### [facility] [address] [place] [address] Hematocrit (Bld) [Volume fraction] 39.3 % Normal 37.7-49.0 [facility] Comment on above: Performed By: #### 2 031813, 7256630 #### [facility] [address] [place] [address] Hemoglobin (Bld) [Mass/Vol] 13.7 g/dL Normal 13.5-17.5 [facility] Comment on above: Performed By: #### 2 323255, 2111428 #### [facility] [address] [place] [address] MCH (RBC) [Entitic mass] 29.2 pg Normal 27.0-34.0 [facility] Comment on above: Performed By: #### 2 471096, 7605858 #### [facility] [address] [place] [address] MCHC (RBC) [Mass/Vol] 34.7 g/dL Normal 31.4-36.0 [facility] Comment on above: Performed By: #### 2 489223, 3139419 #### [facility] [address] [place] [address] MCV (RBC) [Entitic vol] 84.1 fL Normal 80.0-100.0 [facility] Comment on above: Performed By: #### 2 282979, 3136702 #### [facility] [address] [place] [address] Platelet mean volume (Bld) [Entitic vol] 8.4 fL Normal 6.4-10.8 [facility] Comment on above: Performed By: #### 2 960709, 2219303 #### [facility] [address] [place] [address] Platelets (Bld) [#/Vol] 257.0 E9/L Normal 150.0-500. 0 [facility] Comment on above: Performed By: #### 2 382708, 6312863 #### [facility] [address] [place] [address] RBC (Bld) [#/Vol] 4.7 E12/L Normal 4.3-5.9 [facility] Comment on above: Performed By: #### 2 334882, 5838789 #### [facility] [address] [place] [address] WBC corrected for nucl RBC Auto (Bld) [#/Vol] 7.2 E9/L Normal 4.0-11.0 [facility] Comment on above: Performed By: #### 2 097567, 2759716 #### [facility] [address] [place] [address] CHEMISTRYOrdered By: SYSTEM SYSTEM on 02-17-2023 Anion gap [Moles/Vol] 10 mmol/L Normal 6 - 16 mEq/L [facility] Remisol Chloride [Moles/Vol] 112 mmol/L High 101 - 111 mmol/L [facility] Remisol CO2 [Moles/Vol] 24 mmol/L Normal 21 - 31 mmol/L [facility] Remisol Creatinine [Mass/Vol] 0.8 mg/dL Normal 0.5 - 1.3 mg/dL [facility] Remisol GFR/1.73 sq M.predicted among non-blacks MDRD (S/P/Bld) [Vol rate/Area] 96 mL/min/1.73 m2 Normal >=59mL/min /1.73 m2 [facility] Chem S Comment on above: Interpretive Data: C hronic kidney disease could be indicated at eGFR's of less than 60 mL/min/1.73m2. Kidney failure is indicated at less than 15 mL/min/1.73m2. Glucose [Mass/Vol] 129 mg/dL Normal 55 - 199 mg/dL [facility] Remisol Potassium [Moles/Vol] 3.9 mmol/L Normal 3.5 - 5.3 mmol/L [facility] Remisol Sodium [Moles/Vol] 142 mmol/L Normal 135 - 145 mmol/L [facility] Remisol Urea nitrogen [Mass/Vol] 16 mg/dL Normal 5 - 21 mg/dL [facility] Remisol Consent for Treatmenton 02-08 Consent for Treatment [id number]#1.00TIFF Normal [facility] Creatinineon 02-17-2023 Creatinine [Mass/Vol] 0.8 mg/dL Normal 0.5-1.3 [facility] Comment on above: Performed By: #### 1 9099315, 1477182, 2800672, 4462561, 0133853 ####[facility] [address] [place] [address] Glucoseon 02-17-2023 Glucose [Mass/Vol] 129 mg/dL Normal 55-199 [facility] Comment on above: Performed By: #### 1 2201737, 3483155, 0818851, 4744115, 6572479 ####[facility] [address] [place] [address] Lyteson 02-17-2023 Anion gap [Moles/Vol] 10 mmol/L Normal 6-16 [facility] Comment on above: Performed By: #### 1 4826199, 5919042, 7706252, 6954351, 8345627 ####[facility] [address] [place] [address] Chloride [Moles/Vol] 112 mmol/L High 101-111 [facility] Comment on above: Performed By: #### 1 9765631, 1003938, 9927021, 2339673, 0607099 ####[facility] [address] [place] [address] CO2 [Moles/Vol] 24 mmol/L Normal 21-31 [facility] Comment on above: Performed By: #### 1 5631265, 7003904, 6945954, 2865820, 6314917 ####[facility] [address] [place] [address] Potassium [Moles/Vol] 3.9 mmol/L Normal 3.5-5.3 [facility] Comment on above: Performed By: #### 1 8784500, 5174473, 4042620, 9325703, 8336230 ####[facility] [address] [place] [address] Sodium [Moles/Vol] 142 mmol/L Normal 135-145 [facility] Comment on above: Performed By: #### 1 0324306, 3005030, 5696255, 0463934, 4620346 ####[facility] [address] [place] [address] eGFRon 02-17-2023 GFR/1.73 sq M.predicted among non-blacks MDRD (S/P/Bld) [Vol rate/Area] 96 mL/min/1.73 m2 Normal >=59 [facility] Comment on above: Order Comment: Order added by Discern Expert. Result Comment: Carpenter Inspector blanka kidney disease could be indicated at eGFR's of less than 60 mL/min/1.73m2. Kidney failure is indicated at less than 15 mL/min/1.73m2. Performed By: #### 1 8771910, 5861088, 5369731, 9791040, 7937388 ####[facility] [address] [place] [address] Office Visiton 01-30-2023 Follow-up visit [id number] Ronnell Peres 1955 M Date Provider Department Center 01/30/2023 3848-[facility] Family History Problem Relation Age of Onset Heart attack Mother Family Status - Relation Status Age at Mother Level of Service:80247 AR OFFICE/OUTPATIENT ESTABLISHED MOD MDM 30-39 MIN Normal [facility] CBC with Auto Differentialon 01-25-2023 Basophils (Bld) [#/Vol] 0.03 10*3/uL [facility] Basophils/100 WBC (Bld) 0 % 0 - 2 % [facility] Eosinophils (Bld) [#/Vol] 0.04 10*3/uL [facility] Eosinophils/100 WBC (Bld) 1 % 1 - 4 % [facility] Erythrocyte distribution width (RBC) [Ratio] 12.6 % 11.8 - 14.4 % [facility] Hematocrit (Bld) [Volume fraction] 43.7 % 40.7 - 50.3 % [facility] Hemoglobin (Bld) [Mass/Vol] 15.2 g/dL 13.0 - 17.0 g/dL [facility] Immature granulocytes (Bld) [#/Vol] [facility] Immature granulocytes/100 WBC (Bld) 0 % 0 [facility] Interpretation and review of laboratory results Abnormal [facility] Lymphocytes/100 WBC (Bld) 21 % Low 24 - 43 % [facility] Lymphocytes/100 WBC (Bld) 1.64 % [facility] MCH (RBC) [Entitic mass] 29.2 pg 25.2 - 33.[address] [facility] MCHC (RBC) [Mass/Vol] 34.8 g/dL 28.4 - 34.8 g/dL [facility] MCV (RBC) [Entitic vol] 83.9 fL 82.6 - 102.9 fL [facility] Monocytes/100 WBC (Bld) 6 % 3 - 12 % [facility] Monocytes/100 WBC (Bld) 0.50 % [facility] Neutrophils/100 WBC (Bld) 72 % High 36 - 65 % [facility] Nucleated RBC/100 WBC (Bld) [Ratio] 0.0 % 0.0 per 100 WBC [facility] Platelet mean volume (Bld) [Entitic vol] 9.7 fL 8.1 - 13.5 fL [facility] Platelets (Bld) [#/Vol] 276 10*3/uL [facility] RBC (Bld) [#/Vol] 5.21 10*6/uL 4.21 - 5.77 m/uL [facility] Segmented neutrophils/100 WBC (Bld) 5.71 % [facility] WBC other (Bld) [#/Vol] 7.9 [facility] CBC with Diffon 01-25-2023 Abs. Basophil 0.03 k/uL Normal 0.00-0.20 [facility] Comment on above: Performed By: #### C DP, PT, CP, TROPI #### [address] [place], [place] [id number] Business Systems Technician: Dustin Woods MD Abs.Imm.Granulocy te <0.03 Normal 0.00-0.30 [facility] Comment on above: Performed By: #### C DP, PT, CP, TROPI #### [address] [place] [id number] Business Systems Technician: Dustin Woods MD Abs.Neutrophil (Seg) 5.71 k/uL Normal 1.50-8.10 [facility] Comment on above: Performed By: #### C DP, PT, CP, TROPI #### [address] [place] [address] Business Systems Technician: Dustin Woods MD Basophils/100 WBC (Bld) 0 % Normal 0-2 [facility] Comment on above: Performed By: #### C DP, PT, CP, TROPI #### [address] [place], [facility] Business Systems Technician: Dustin Woods MD Eosinophils (Bld) [#/Vol] 0.04 10*3/uL Normal 0.00-0.44 [facility] Comment on above: Performed By: #### C DP, PT, CP, TROPI #### [address] [place], [facility] Business Systems Technician: Dustin Woods MD Eosinophils/100 WBC (Bld) 1 % Normal 1-4 [facility] Comment on above: Performed By: #### C DP, PT, CP, TROPI #### [address] [place], [place] [address] Business Systems Technician: Dustin Woods MD Erythrocyte distribution width (RBC) [Ratio] 12.6 % Normal 11.8-14.4 [facility] Comment on above: Performed By: #### C DP, PT, CP, TROPI #### [address] [place] [address] Business Systems Technician: Dustin Woods MD Hematocrit (Bld) [Volume fraction] 43.7 % Normal 40.7-50.3 [facility] Comment on above: Performed By: #### C DP, PT, CP, TROPI #### [address] [place], [place] [address] Business Systems Technician: Dustin Woods MD Hemoglobin (Bld) [Mass/Vol] 15.2 g/dL Normal 13.0-17.0 [facility] Comment on above: Performed By: #### C DP, PT, CP, TROPI #### [address] [place], [place] [address] Business Systems Technician: Dustin Woods MD Immature granulocytes/100 WBC (Bld) 0 % Normal 0 [facility] Comment on above: Performed By: #### C DP, PT, CP, TROPI #### [address] [place], [place] [address] Business Systems Technician: Dustin Woods MD Lymphocytes (Bld) [#/Vol] 1.64 10*3/uL Normal 1.10-3.70 [facility] Comment on above: Performed By: #### C DP, PT, CP, TROPI #### [address] [place], [facility] Business Systems Technician: Dustin Woods MD Lymphocytes/100 WBC (Bld) 21 % Low 24-43 [facility] Comment on above: Performed By: #### C DP, PT, CP, TROPI #### [facility] [address] [place], [facility] Business Systems Technician: Dustin Woods MD MCH (RBC) [Entitic mass] 29.2 pg Normal 25.2-33.5 [facility] Comment on above: Performed By: #### C DP, PT, CP, TROPI #### [facility] [address] [place], [facility] Business Systems Technician: Dustin Woods MD MCHC (RBC) [Mass/Vol] 34.8 g/dL Normal 28.4-34.8 [facility] Comment on above: Performed By: #### C DP, PT, CP, TROPI #### [address] [place], [place] [address] Business Systems Technician: Dustin Woods MD MCV (RBC) [Entitic vol] 83.9 fL Normal 82.6-102.9 [facility] Comment on above: Performed By: #### C DP, PT, CP, TROPI #### [address] [place], [facility] Business Systems Technician: Dustin Woods MD Monocytes (Bld) [#/Vol] 0.50 10*3/uL Normal 0.10-1.20 [facility] Comment on above: Performed By: #### C DP, PT, CP, TROPI #### [address] [place], [place] [id number] Business Systems Technician: Dustin Woods MD Monocytes/100 WBC (Bld) 6 % Normal 3-12 [facility] Comment on above: Performed By: #### C DP, PT, CP, TROPI #### [address] [place], [facility] Business Systems Technician: Dustin Woods MD Neutrophil (Seg) 72 % High 36-65 [facility] Comment on above: Performed By: #### C DP, PT, CP, TROPI #### [address] [place], [place] [phone] Business Systems Technician: Dustin Woods MD NRBC Automated 0.0 per 100 WBC Normal 0.0 [facility] Comment on above: Performed By: #### C DP, PT, CP, TROPI #### [address] [place], [place] [id number] Business Systems Technician: Dustin Woods MD Platelet mean volume (Bld) [Entitic vol] 9.7 fL Normal 8.1-13.5 [facility] Comment on above: Performed By: #### C DP, PT, CP, TROPI #### [address] [place], [place] [address] Business Systems Technician: Dustin Woods MD Platelets (Bld) [#/Vol] 276 10*3/uL Normal 138-453 [facility] Comment on above: Performed By: #### C DP, PT, CP, TROPI #### [address] [place], [place] [id number] Business Systems Technician: Dustin Woods MD RBC (Bld) [#/Vol] 5.21 10*6/uL Normal 4.21-5.77 [facility] Comment on above: Performed By: #### C DP, PT, CP, TROPI #### [address] [place] [address] Business Systems Technician: Dustin Woods MD WBC (Bld) [#/Vol] 7.9 10*3/uL Normal 3.5-11.3 [facility] Comment on above: Performed By: #### C DP, PT, CP, TROPI #### [address] [place], [place] [id number] Business Systems Technician: Dustin Woods MD [facility] 01-25-2023 Albumin [Mass/Vol] 5.0 g/dL 3.5 - 5.2 g/dL [facility] Albumin/Globulin [Mass ratio] 1.9 {ratio} 1.0 - 2.5 [facility] ALP [Catalytic activity/Vol] 74 U/L 40 - 129 U/L [facility] ALT [Catalytic activity/Vol] 31 U/L 5 - 41 U/L [facility] Anion gap [Moles/Vol] 11 mmol/L 9 - 17 mmol/L [facility] AST [Catalytic activity/Vol] 26 U/L NINF - 40 U/L [facility] Bilirubin [Mass/Vol] 0.5 mg/dL 0.3 - 1.2 mg/dL [facility] Calcium [Mass/Vol] 9.7 mg/dL 8.6 - 10.4 mg/dL [facility] Chloride [Moles/Vol] 102 mmol/L 98 - 107 mmol/L [facility] CO2 [Moles/Vol] 23 mmol/L 20 - 31 mmol/L [facility] Creatinine [Mass/Vol] 0.6 mg/dL Low 0.7 - 1.2 mg/dL [facility] GFR/1.73 sq M.predicted MDRD (S/P/Bld) [Vol rate/Area] - PINF [facility] Comment on above: These results are not [...] 108 mg/dL High 70 - 99 mg/dL [facility] Interpretation and review of laboratory results Abnormal [facility] Potassium [Moles/Vol] 4.0 mmol/L 3.7 - 5.3 mmol/L [facility] Protein [Mass/Vol] 7.7 g/dL 6.4 - 8.3 g/dL [facility] Sodium [Moles/Vol] 136 mmol/L 135 - 144 mmol/L [facility] Urea nitrogen [Mass/Vol] 14 mg/dL 8 - 23 mg/dL [facility] Urea nitrogen/Creatini ne [Mass ratio] 23 mg/mg High - 20 [facility] Comp Metabolic Profon 2022 Albumin [Mass/Vol] 5.0 g/dL Normal 3.5-5.2 [facility] Comment on above: Performed By: #### C DP, PT, CP, TROPI #### [facility] [address] [place] [address] Business Systems Technician: Dustin Woods MD Albumin/Glob Ratio 1.9 Normal 1.0-2.5 [facility] Comment on above: Performed By: #### C DP, PT, CP, TROPI #### [facility] [address] [place], [place] [phone] Business Systems Technician: Dustin Woods MD Alkaline Phos 74 U/L Normal 40-129 [facility] Comment on above: Performed By: #### C DP, PT, CP, TROPI #### [facility] [address] [place], [place] [phone] Business Systems Technician: Dustin Woods MD ALT [Catalytic activity/Vol] 31 U/L Normal 5-41 [facility] Comment on above: Performed By: #### C DP, PT, CP, TROPI #### [facility] [address] [place], [place] [phone] Business Systems Technician: Dustin Woods MD Anion gap [Moles/Vol] 11 mmol/L Normal -17 [facility] Comment on above: Performed By: #### C DP, PT, CP, TROPI #### [facility] [address] [place] [address] Business Systems Technician: Dustin Woods MD AST [Catalytic activity/Vol] 26 U/L Normal <40 [facility] Comment on above: Performed By: #### C DP, PT, CP, TROPI #### [facility] [address] [place] [address] Business Systems Technician: Dustin Woods MD Bilirubin [Mass/Vol] 0.5 mg/dL Normal 0.3-1.2 [facility] Comment on above: Performed By: #### C DP, PT, CP, TROPI #### [facility] [address] [place], [place] [phone] Business Systems Technician: Dustin Woods MD BUN/CRE Ratio 23 High 9-20 [facility] Comment on above: Performed By: #### C DP, PT, CP, TROPI #### [address] [place], [place] [phone] Business Systems Technician: Dustin Woods MD Calcium [Mass/Vol] 9.7 mg/dL Normal 8.6-10.4 [facility] Comment on above: Performed By: #### C DP, PT, CP, TROPI #### [address] [place] [address] Business Systems Technician: Dustin Woods MD Chloride [Moles/Vol] 102 mmol/L Normal 98-107 [facility] Comment on above: Performed By: #### C DP, PT, CP, TROPI #### [facility] [address] [place] [address] Dr. [place], [place] [phone] Business Systems Technician: Dustin Woods MD CO2 [Moles/Vol] 23 mmol/L Normal 20-31 [facility] Comment on above: Performed By: #### C DP, PT, CP, TROPI #### [address] [place] [address] Business Systems Technician: Dustin Woods MD Creatinine [Mass/Vol] 0.6 mg/dL Low 0.7-1.2 [facility] Comment on above: Performed By: #### C DP, PT, CP, TROPI #### [facility] [address] [place] [address] [place] [address] Business Systems Technician: Dustin Woods MD GFR/1.73 sq M.predicted among non-blacks MDRD (S/P/Bld) [Vol rate/Area] mL/min/{1.73_m2} Normal >60 [facility] Comment on above: Result Comment: These results [...] #### C DP, PT, CP, TROPI #### [address] [place] [address] Business Systems Technician: Dustin Woods MD Glucose [Mass/Vol] 108 mg/dL High 70-99 [facility] Comment on above: Performed By: #### C DP, PT, CP, TROPI #### [address] [place] [address] Business Systems Technician: Dustin Woods MD Potassium [Moles/Vol] 4.0 mmol/L Normal 3.7-5.3 [facility] Comment on above: Performed By: #### C DP, PT, CP, TROPI #### [facility] [address] [place] [address] [place] [address] Business Systems Technician: Dustin Woods MD Protein [Mass/Vol] 7.7 g/dL Normal 6.4-8.3 [facility] Comment on above: Performed By: #### C DP, PT, CP, TROPI #### [address] [place] [address] Business Systems Technician: Dustin Woods MD Sodium [Moles/Vol] 136 mmol/L Normal 135-144 [facility] Comment on above: Performed By: #### C DP, PT, CP, TROPI #### [facility] [address] [place] [address] Business Systems Technician: Dustin Woods MD Urea nitrogen [Mass/Vol] 14 mg/dL Normal 8-23 [facility] Comment on above: Performed By: #### C DP, PT, CP, TROPI #### [facility] [address] [place] [address] Business Systems Technician: uDstin Woods MD PTon 01-25-2023 INR Coag (PPP) [Relative time] 0.9 {INR} Normal [facility] Comment on above: Result Comment: Therapeutic Range: Moderate Anticoagulant Intensity: INR = 2.0-3.0 High Anticoagulant Intensity: INR = 2.5-3.5 Performed By: #### C DP, PT, CP, TROPI #### [facility] [address] [place] [address] Business Systems Technician: Dustin Woods MD PT Coag (PPP) [Time] 12.5 s Normal 11.9-14.8 [facility] Comment on above: Performed By: #### C DP, PT, CP, TROPI #### [facility] [address] [place] [address] Business Systems Technician: Dustin Woods MD Protime-INRon 01-25-2023 INR Coag (PPP) [Relative time] 0.9 {INR} [facility] Comment on above: Therapeutic Range: Moderate Anticoagulant Intensity: INR = 2.0-3.0 High Anticoagulant Intensity: INR = 2.5-3.5 PT Coag (PPP) [Time] 12.5 s [facility] Troponinon 01-25-2023 Troponin, High Sens 11 ng/L Normal 0-22 [facility] Comment on above: Result Comment: High Sensitivity Troponin values cannot be compared with other Troponin methodologies. Performed By: #### C DP, PT, CP, TROPI #### [facility] [address] [place], [place] [phone] Business Systems Technician: Dustin Woods MD Troponin I.cardiac High sensitivity method [Mass/Vol] 11 ng/L 0 - 22 ng/L [facility] Comment on above: High Sensitivity Tro ponin values cannot be compared with other Troponin methodologies. [facility] XR CHEST PORTABLEon 01-26-20 XR CHEST PORTABLE [...] Jackson Nichole MD 01/25/23 Final result Normal [facility] No radiographic evid ence of acute pulmonary disease. [facility] EXAMINATION: ONE XRAY VIEW OF THE CHEST 01/25/2023 12:09 pm COMPARISON: None. HISTORY: ORDERING SYSTEM PROVIDED HISTORY: chest pain TECHNOLOGIST PROVIDED HISTORY: chest pain FINDINGS: HEART/MEDIASTINUM: The cardiomediastinal silhouette is within normal limits. PLEURA/LUNGS: There are no focal consolidations or pleural effusions. There is no appreciable pneumothorax. BONES/SOFT TISSUE: No acute abnormality. [facility] Jackson Nichole MD - 01/25/2023 EXAMINATION: [...] No radiographic evidence of acute pulmonary disease. [facility] Radiology Study observation (narrative) [facility] XR CHEST PORTABLEOrdered By: Jackson Nichole on 01-25-2023 [employer] Work Phone: Office Visiton 12-31-2022 Follow-up visit [id number] Ronnell Peres 1955 M Date Provider Department Center 12/31/2022 [facility] Family History Problem Relation Age of Onset Heart attack Mother Family Status - Relation Status Age at Mother Level of Service:63184 [place] OFFICE/OUTPATIENT ESTABLISHED MOD MDM 30-39 MIN Normal [facility] 36on 12-19-2022 35 Let him know I am se nding script for amlodipine 5 mg daily, continue to monitor b/p and call if does not come down under 130/80 Thanks Normal [facility] General Surgery Office/Clini c Noteon 10-26-2022 General [...] 67 yo male with h/o CAD, s/p MS, on Plavix, COPD, htn, hyperlipidemia, bph, here [...] 2. Antiplatelet or antithrombotic long-term use (Z79.02: custodial (current) use of antithrombotics/antiplatelets) hold 5 days [...] mg o (more content not included)... Normal [facility] Comment on above: Result Comment: Elec tronically Signed By: Aaron KELSEY MD\.br\Date and Time Signed: 10/26/22 19:41 EDT Ambulatory Visit Summaryon 0 10-22-2022 Ambulatory Visit Summary RONNELL PERES :1955 Visit Date:10/22/2022 Ambulatory Visit Instructions Your Care Team Attending Physician - Aaron KELSEY MD Primary Care Physician - Dylan Zaidi MD [...] no longer receiving treatment for. Anxiety Normal [facility] ECHOCARDIO M/2D COMPLETEon 0 12-18-2021 ECHOCARDIO M/2D COMPLETE Patient: RONNELL PERES Exam Date: 12/18/2021 : 1955 Gender:M Ordering : [facility] FORREST Admission #: [id number] Family : DR DYLAN ZAIDI . Order #: [id number] CLICK HERE TO VIEW EXAM ECHOCARDIOGRAM REPORT [...] Pulliam M.D. on 12/18/2021 at 20:[address] [facility] NM STRESS/REST MULTIon 12-16 NM STRESS/REST MULTI Patient: RONNELL PERES Exam Date: 12/16/2021 : 1955 Gender:M Ordering : CAM FORREST Admission #: [id number] Family : Order #: [id number] CLICK HERE TO VIEW EXAM RADIOLOGY REPORT [...] MD on 12/17/2021 at 11:[address] [facility] XR ABDOMEN (KUB) (SINGLE AP VIEW)on 08-20-2021 Nonobstructive bowel gas pattern. No definite renal or ureteral stones. [facility] CONSOL[facility]ATED EXAMINATION: ONE SUPINE XRAY VIEW(S) OF THE ABDOMEN 08/20/2021 8:27 am COMPARISON: None. HISTORY: ORDERING SYSTEM PROVIDED HISTORY: Ureteral stone FINDINGS: Bowel gas pattern nonobstructed. Renal shadows partially obscured by bowel gas and fecal debris. No definite renal or ureteral stones. No acute osseous abnormality. [facility] Romario Fong DO - 08/20/2021 EXAMINATION: ONE SUPINE XRAY VIEW(S) OF THE ABDOMEN 08/20/2021 8:27 am COMPARISON: None. HISTORY: ORDERING SYSTEM PROVIDED HISTORY: Ureteral stone FINDINGS: Bowel gas pattern nonobstructed. Renal shadows partially obscured by bowel gas and fecal debris. No definite renal or ureteral stones. No acute osseous abnormality. IMPRESSION: Nonobstructive bowel gas pattern. No definite renal or ureteral stones. [employer] Phone: Radiology Study observation (narrative) [employer] Phone: XR ABDOMEN (KUB) (SINGLE AP VIEW)Ordered By: Romario Fong on 08-20-2021 [employer] Phone: Basic Metabolic Panelon 07-10 Anion gap [Moles/Vol] 10 mmol/L 9 - 17 mmol/L [facility] Calcium [Mass/Vol] 9.8 mg/dL 8.6 - 10.4 mg/dL [facility] Chloride [Moles/Vol] 104 mmol/L 98 - 107 mmol/L [facility] CO2 [Moles/Vol] 25 mmol/L 20 - 31 mmol/L [facility] Creatinine [Mass/Vol] 0.68 mg/dL Low 0.70 - 1.20 mg/dL [facility] GFR >60 >60 mL/min [facility] GFR Non- >60 >60 mL/min [facility] Glucose [Mass/Vol] 95 mg/dL 70 - 99 mg/dL [facility] Interpretation and review of laboratory results Abnormal [facility] Potassium [Moles/Vol] 4.1 mmol/L 3.7 - 5.3 mmol/L [facility] Sodium [Moles/Vol] 139 mmol/L 135 - 144 mmol/L [facility] Urea nitrogen (BldV) [Mass/Vol] 14 mg/dL 8 - 23 mg/dL [facility] Urea nitrogen/Creatini ne (Bld) [Mass ratio] 21 High [facility] [place] ABDOMEN PELVIS WO CONTRAS T Additional [...] left-sided bladder diverticulum containing a small calculus. [facility] CON[facility] EXAMINATION: CT OF THE ABDOMEN AND [...] inguinal hernia unchanged. No acute bony abnormality. [facility] Jose Espinoza MD - 07/29/2021 EXAMINATION: CT OF THE [...] left-sided bladder diverticulum containing a small calculus. [employer] Phone: Radiology Study observation (narrative) [employer] Phone: CT ABDOMEN PELVIS WO CONTRAS T Additional Contrast? NoneOrdered By: Jose Espinoza on 07-29-2021 [employer] Phone: Laboratory - Chemistry and C hemistry - challengeon 07-29-2021 GFR/1.73 sq M.predicted MDRD (S/P/Bld) [Vol rate/Area] [facility] Comment on above: Average GFR for 60-6 9 years old: 85 mL/min/1.73sq m Chronic Kidney Disease: <60 mL/min/1.73sq m Kidney failure: <15 mL/min/1.73sq m eGFR calculated using average adult body mass. Additional eGFR calculator available at: http://www.[employer]/multiple_crcl_2012.htm Stage 1: Some kidney damage normal GFR Stage 2: Mild kidney damage GFR 60-89 Stage 3: Moderate kidney damage GFR 30-59 Stage 4: Severe kidney damage GFR 15-29 Stage 5: Severe kidney damage GFR <15 ESRD - chronic treatment by dialysis or transplant CBC AUTO DIFFon 07-18-2021 BASO # 0.0 103/ul Normal 0.0-0.1 [facility] Comment on above: Performed By: #### ERIC Cannon MP #### [facility] [address] [place] [address] Dr. Wesley Ashraf Basophils/100 WBC (Bld) 0.6 % Normal 0.2-2.0 [facility] Comment on above: Performed By: #### ERIC Cannon MP #### [facility] [address] [place] [address] Dr. Wesley Ashraf EO # 0.2 103/ul Normal 0.0-0.7 [facility] Comment on above: Performed By: #### ERIC Cannon MP #### [facility] [address] [place] [address] Dr. Wesley Ashraf Eosinophils/100 WBC (Bld) 2.5 % Normal 0.9-7.0 [facility] Comment on above: Performed By: #### ERIC Cannon MP #### [facility] [address] [place] [address] Dr. Wesley Ashraf Erythrocyte distribution width (RBC) [Ratio] 12.2 % Normal 11.0-15.0 [facility] Comment on above: Performed By: #### ERIC Cannon MP #### [facility] [address] [place] [address] Dr. Wesley Ashraf Hematocrit (Bld) [Volume fraction] 41.1 % Critically low 42.0-54.0 [facility] Comment on above: Performed By: #### B KHURRAM, AMADODM #### [facility] [address] [place] [address] Dr. Wesley Ashraf Hemoglobin (Bld) [Mass/Vol] 14.3 g/dL Normal 14.0-18.[address] [facility] Comment on above: Performed By: #### B KHURRAM, CMADM #### [facility] [address] [place] [address] Dr. Wesley Ashraf IG # 0.02 10e3/ul Normal 0.00-0.03 [facility] Comment on above: Performed By: #### B KHURRAM, CMADM #### [facility] [address] [place] [address] Dr. Wesley Ashraf IG % 0.3 % Normal 0.0-0.[address] [facility] Comment on above: Performed By: #### B KHURRAM, CMADM #### [facility] [address] [place] [address] Dr. Wesley Ashraf LYMPH # 1.4 103/ul Normal 1.2-3.[address] [facility] Comment on above: Performed By: #### B KHURRAM, CMADM #### [facility] [address] [place] [address] Dr. Wesley Ashraf Lymphocytes/100 WBC (Bld) 21.5 % Normal 20.5-60.[address] [facility] Comment on above: Performed By: #### B KHURRAM, CMADM #### [facility] [address] [place] [address] Dr. Wesley Ashraf MANUAL DIFF REQ NO Normal [facility] Comment on above: Performed By: #### B KHURRAM, CMADM #### [facility] [address] [place] [address] Dr. Wesley Ashraf MCH (RBC) [Entitic mass] 28.9 pg Normal 25.9-34.[address] [facility] Comment on above: Performed By: #### B KHURRAM, CMADM #### [facility] [address] [place] [address] Dr. Wesley Ashraf MCHC (RBC) [Mass/Vol] 34.8 g/dL Normal 29.9-35.2 [facility] Comment on above: Performed By: #### B MP, CMADM #### [facility] [address] [place] [address] Dr. Wesley Ashraf MCV (RBC) [Entitic vol] 83.2 fL Normal 80.0-94.[address] [facility] Comment on above: Performed By: #### B MP, CMADM #### [facility] [address] [place] [address] Dr. Wesley Ashraf MONO # 0.5 103/ul Normal 0.3-0.8 [facility] Comment on above: Performed By: #### B MP, CMADM #### [facility] [address] [place] [address] Dr. Wesley Ashraf Monocytes/100 WBC (Bld) 7.8 % Normal 1.7-12.0 [facility] Comment on above: Performed By: #### B MP, CMADM #### [facility] [address] [place] [address] Dr. Wesley Ashraf NEUT # 4.2 103/ul Normal 1.4-6.5 [facility] Comment on above: Performed By: #### B MP, CMADM #### [facility] [address] [place] [address] Dr. Wesley Ashraf Neutrophils/100 WBC (Bld) 67.3 % Normal 43.0-75.[address] [facility] Comment on above: Performed By: #### B MP, CMADM #### [facility] [address] [place] [address] Dr. Wesley Ashraf Platelet mean volume (Bld) [Entitic vol] 9.6 fL Normal 9.5-13.[address] [facility] Comment on above: Performed By: #### B MP, CMADM #### [facility] [address] [place] [address] Dr. Wesley Ashraf PLT 374 103/ul Normal 150-[address] [facility] Comment on above: Performed By: #### B KHURRAM, CMADM #### [facility] [address] [place] [address] Dr. Wesley Ashraf RBC 4.94 106/ul Normal 4.70-6.[address] [facility] Comment on above: Performed By: #### B KHURRAM, CMADM #### [facility] [address] [place] [address] Dr. Wesley Ashraf WBC 6.3 103/ul Normal 4.0-11.0 [facility] Comment on above: Performed By: #### B KHURRAM, AMADODM #### [facility] [address] [place] [address] Dr. Wesley Ashraf PROF 14(COMP METB)on 022 Albumin [Mass/Vol] 3.7 g/dL Normal 3.5-5.0 [facility] Comment on above: Performed By: #### C MP #### [facility] [address] [place] [address] Dr. Wesley Ashraf Albumin/Globulin [Mass ratio] 0.9 {ratio} Normal [facility] Comment on above: Performed By: #### C MP #### [facility] [address] [place] [address] Dr. Wesley Ashraf ALP [Catalytic activity/Vol] 89 U/L Normal 38-126 [facility] Comment on above: Performed By: #### C MP #### [facility] [address] [place] [address] Dr. Wesley Ashraf ALT [Catalytic activity/Vol] 86 U/L Critically high 21-72 [facility] Comment on above: Performed By: #### C MP #### [facility] [address] [place] [address] Dr. Wesley Ashraf Anion gap [Moles/Vol] 14.7 mmol/L Normal [facility] Comment on above: Performed By: #### C MP #### [facility] [address] [place] [address] Dr. Wesley Ashraf AST [Catalytic activity/Vol] 40 U/L Normal 17-59 [facility] Comment on above: Performed By: #### C MP #### [facility] [address] [address] [address] Wesley Ashraf Bilirubin [Mass/Vol] 0.3 mg/dL Normal 0.2-1.[address] [facility] Comment on above: Performed By: #### C MP #### [facility] [address] [address] [address] Wesley Ashraf Calcium [Mass/Vol] 9.5 mg/dL Normal 8.4-10.[address] [facility] Comment on above: Performed By: #### C MP #### [facility] [address] [address] [address] Wesley Ashraf Chloride [Moles/Vol] 99 mmol/L Normal 98-[address] [facility] Comment on above: Performed By: #### C MP #### [facility] [address] [address] [address] Wesley Ashraf CO2 [Moles/Vol] 21.8 mmol/L Critically low 22.0-30.0 [facility] Comment on above: Performed By: #### C MP #### [facility] [address] [address] [address] Wesley Ashraf Creatinine [Mass/Vol] 1.45 mg/dL Critically high 0.66-1.25 [facility] Comment on above: Performed By: #### C MP #### [facility] [address] [address] [address] Wesley Ashraf EGFR-AF NIUEAN 59 mL/min/1.73m2 Critically low >=[address] [facility] Comment on above: Performed By: #### C MP #### [facility] [address] [address] [address] Wesley Ashraf EGFR-NON AF NIUEAN 49 mL/min/1.73m2 Critically low >=[address] [facility] Comment on above: Performed By: #### C MP #### [facility] [address] [address] [address] Wesley Ashraf Globulin (S) [Mass/Vol] 4.1 g/dL Normal [facility] Comment on above: Performed By: #### C MP #### [facility] [address] [address] [address] Wesley Ashraf Glucose [Mass/Vol] 165 mg/dL Critically high 74-[address] [facility] Comment on above: Performed By: #### C MP #### [facility] [address] [address] [address] Wesley Ashraf Potassium [Moles/Vol] 4.5 mmol/L Normal 3.4-5.0 [facility] Comment on above: Performed By: #### C MP #### [facility] [address] [address] [address] Wesley Ashraf Protein [Mass/Vol] 7.8 g/dL Normal 6.1-8.[address] [facility] Comment on above: Performed By: #### C MP #### [facility] [address] [address] [address] Wesley Ashraf Sodium [Moles/Vol] 131 mmol/L Critically low 137-145 [facility] Comment on above: Performed By: #### C MP #### [facility] [address] [address] [address] Wesley Ashraf Urea nitrogen [Mass/Vol] 33.0 mg/dL Critically high 9.0-20.0 [facility] Comment on above: Performed By: #### C MP #### [facility] [address] [address] [address] Weslye Ashraf Urea nitrogen/Creatini ne [Mass ratio] 22.8 mg/mg Normal [facility] Comment on above: Performed By: #### C MP #### [facility] [address] [address] [address] Wesley Ashraf PROTIMEon 07-18-2021 INR Coag (PPP) [Relative time] 1.01 {INR} Normal [facility] Comment on above: Performed By: #### C BC #### [facility] [address] [address] [address] Wseley Ashraf INR GUIDELINES SEE BELOW Normal [facility] Comment on above: Result Comment: LILI RED INR: 2.0 - 3.0 CONDITIONS NOT LISTED BELOW 2.5 - 3.5 FOR PROSTHETIC HEART VALVE REPLACEMENT 2.5 - 3.5 RECURRENT THROMBOSIS Performed By: #### C BC #### [facility] [address] [address] [address] Wesley Ashraf PT Coag (PPP) [Time] 10.9 s Normal 9.0-11.6 [facility] Comment on above: Performed By: #### C BC #### [facility] [address] [address] [address] Wesley Ashraf PTTon 07-18-2021 aPTT Coag (Bld) [Time] 28.9 s Normal 22.3-36.2 [facility] Comment on above: Performed By: #### B MP, CMADM #### [facility] [address] [address] [address] Wesley Ashraf Basic Metabolic Panelon Anion gap [Moles/Vol] 16 mmol/L 9 - 17 mmol/L [facility] Calcium [Mass/Vol] 10.1 mg/dL 8.6 - 10.4 mg/dL [facility] Chloride [Moles/Vol] 98 mmol/L 98 - 107 mmol/L [facility] CO2 [Moles/Vol] 19 mmol/L Low 20 - 31 mmol/L [facility] Creatinine [Mass/Vol] 1.18 mg/dL 0.70 - 1.20 mg/dL [facility] GFR >60 >60 mL/min [facility] GFR Non- >60 >60 mL/min [facility] Glucose [Mass/Vol] 102 mg/dL High 70 - 99 mg/dL [facility] Interpretation and review of laboratory results Abnormal [facility] Potassium [Moles/Vol] 4.6 mmol/L 3.7 - 5.3 mmol/L [facility] Sodium [Moles/Vol] 133 mmol/L Low 135 - 144 mmol/L [facility] Urea nitrogen (BldV) [Mass/Vol] 22 mg/dL 8 - 23 mg/dL [facility] Urea nitrogen/Creatini ne (Bld) [Mass ratio] 19 [facility] CBC with Auto Differentialon 07-16-2021 Absolute Eos # 0.06 [facility] th Absolute Immature Granulocyte <0.03 [facility] Absolute Lymph # 1.48 [facility] [place] # 0.54 [facility] lth Basophils (Bld) [#/Vol] 0.03 10*3/uL [facility] Basophils/100 WBC (Bld) 1 % 0 - 2 % [facility] Eosinophils/100 WBC (Bld) 1 % 1 - 4 % [facility] Hematocrit (Bld) [Volume fraction] 43.4 % 40.7 - 50.3 % [facility] Hemoglobin.gastro intestinal spec 1 Ql (Stl) 14.7 g/dL 13.0 - 17.0 g/dL [facility] Immature granulocytes/100 WBC (Bld) 0 % 0 [facility] Interpretation and review of laboratory results Abnormal [facility] Lymphocytes/100 WBC (Bld) 22 % Low 24 - 43 % [facility] MCH (RBC) [Entitic mass] 28.9 pg 25.2 - 33.5 pg [facility] MCHC (RBC) [Mass/Vol] 33.9 g/dL 28.4 - 34.8 g/dL [facility] MCV (RBC) [Entitic vol] 85.3 fL 82.6 - 102.9 fL [facility] Monocytes/100 WBC (Bld) 8 % 3 - 12 % [facility] NRBC Automated 0.0 0.0 per 100 WBC [facility] Platelet distribution width (Bld) [Ratio] 12.0 % 11.8 - 14.4 % [facility] Platelet mean volume (Bld) [Entitic vol] 9.5 fL 8.1 - 13.5 fL [facility] Platelets (Bld) [#/Vol] 376 10*3/uL [facility] RBC (Bld) [#/Vol] 5.09 10*6/uL 4.21 - 5.77 m/uL [facility] Segmented neutrophils/100 WBC (Bld) 68 % High 36 - 65 % [facility] Segs Absolute 4.55 [facility] WBC (Bld) [#/Vol] 6.7 10*3/uL [facility] [place] Laboratory - Chemistry and C hemistry - challengeon 07-16-2021 GFR/1.73 sq M.predicted MDRD (S/P/Bld) [Vol rate/Area] [facility] Comment on above: Average GFR for 60-6 9 years old: 85 mL/min/1.73sq m Chronic Kidney Disease: <60 mL/min/1.73sq m Kidney failure: <15 mL/min/1.73sq m eGFR calculated using average adult body mass. Additional eGFR calculator available at: http://www.[employer]/multiple_crcl_2012.htm Stage 1: Some kidney damage normal GFR Stage 2: Mild kidney damage GFR 60-89 Stage 3: Moderate kidney damage GFR 30-59 Stage 4: Severe kidney damage GFR 15-29 Stage 5: Severe kidney damage GFR <15 ESRD - chronic treatment by dialysis or transplant Basic Metabolic Panel w/ Ref caren to MGon 07-11-2021 Anion gap [Moles/Vol] 11 mmol/L 9 - 17 mmol/L [facility] Calcium [Mass/Vol] 9.3 mg/dL 8.6 - 10.4 mg/dL [facility] Chloride [Moles/Vol] 104 mmol/L 98 - 107 mmol/L [facility] CO2 [Moles/Vol] 24 mmol/L 20 - 31 mmol/L [facility] Creatinine [Mass/Vol] 1.34 mg/dL High 0.70 - 1.20 mg/dL [facility] GFR >60 >60 mL/min [facility] GFR Non- 53 mL/min Low >60 [facility] Glucose [Mass/Vol] 112 mg/dL High 70 - 99 mg/dL [facility] Interpretation and review of laboratory results Abnormal [facility] Potassium [Moles/Vol] 4.2 mmol/L 3.7 - 5.3 mmol/L [facility] Sodium [Moles/Vol] 139 mmol/L 135 - 144 mmol/L [facility] Urea nitrogen (BldV) [Mass/Vol] 15 mg/dL 8 - 23 mg/dL [facility] Urea nitrogen/Creatini ne (Bld) [Mass ratio] 11 [facility] [place] CBC with Auto Differentialon 07-11-2021 Absolute Eos # 0.10 [facility] th Absolute Immature Granulocyte <0.03 [facility] Absolute Lymph # 0.98 Low [facility] Absolute [place] # 0.[address] [facility] Basophils (Bld) [#/Vol] 0.03 10*3/uL [facility] Basophils/100 WBC (Bld) 0 % 0 - 2 % [facility] Eosinophils/100 WBC (Bld) 1 % 1 - 4 % [facility] Hematocrit (Bld) [Volume fraction] 39.3 % Low 40.7 - 50.3 % [facility] Hemoglobin.gastro intestinal spec 1 Ql (Stl) 13.0 g/dL 13.0 - 17.0 g/dL [facility] Immature granulocytes/100 WBC (Bld) 0 % 0 [facility] Interpretation and review of laboratory results Abnormal [facility] Lymphocytes/100 WBC (Bld) 8 % Low 24 - 43 % [facility] MCH (RBC) [Entitic mass] 29.1 pg 25.2 - 33.5 pg [facility] MCHC (RBC) [Mass/Vol] 33.1 g/dL 28.4 - 34.8 g/dL [facility] MCV (RBC) [Entitic vol] 88.1 fL 82.6 - 102.9 fL [facility] Monocytes/100 WBC (Bld) 6 % 3 - 12 % [facility] NRBC Automated 0.0 0.0 per 100 WBC [facility] Platelet distribution width (Bld) [Ratio] 12.3 % 11.8 - 14.4 % [facility] Platelet mean volume (Bld) [Entitic vol] 10.0 fL 8.1 - 13.5 fL [facility] Platelets (Bld) [#/Vol] 269 10*3/uL [facility] RBC (Bld) [#/Vol] 4.46 10*6/uL 4.21 - 5.77 m/uL [facility] Segmented neutrophils/100 WBC (Bld) 85 % High 36 - 65 % [facility] Segs Absolute 10.95 [facility] [#/Vol] 12.9 10*3/uL High [facility] [place] Laboratory - Chemistry and C hemistry - challengeon 07-11-2021 GFR/1.73 sq M.predicted MDRD (S/P/Bld) [Vol rate/Area] [facility] Comment on above: Average GFR for 60-6 9 years old: 85 mL/min/1.73sq m Chronic Kidney Disease: <60 mL/min/1.73sq m Kidney failure: <15 mL/min/1.73sq m eGFR calculated using average adult body mass. Additional eGFR calculator available at: http://www.[employer]/multiple_crcl_2011.htm Stage 1: Some kidney damage normal GFR Stage 2: Mild kidney damage GFR 60-89 Stage 3: Moderate kidney damage GFR 30-59 Stage 4: Severe kidney damage GFR 15-29 Stage 5: Severe kidney damage GFR <15 ESRD - chronic treatment by dialysis or transplant Microscopic Urinalysison - [facility] Bacteria, UA TRACE Abnormal None [facility] Epithelial Cells UA 0 TO 2 [facility] Interpretation and review of laboratory results Abnormal [facility] RBC, UA 20 TO 50 [facility] WBC, UA 0 TO 2 [facility] [place] Urinalysis with Reflex to Cu ltureon 07-11-2021 Bilirubin Urine Negative NEGATIVE [facility] Color, UA Dark Yellow Abnormal Yellow [facility] Glucose, Ur Negative NEGATIVE [facility] Interpretation and review of laboratory results Abnormal [facility] Ketones Ql (U) Negative NEGATIVE [facility] Leukocyte esterase Test strip Ql (U) Negative NEGATIVE [facility] Nitrite, Urine Positive Abnormal NEGATIVE [facility] pH, UA 6.0 [facility] Protein, UA 1+ Abnormal NEGATIVE [facility] Specific [place], UA 1.015 [facility] Turbidity UA Clear Clear [facility] Urine Hgb 3+ Abnormal NEGATIVE [facility] Urobilinogen, Urine Normal Normal [facility] Basic Metabolic Panelon Anion gap [Moles/Vol] 9 mmol/L 9 - 17 mmol/L [facility] Calcium [Mass/Vol] 8.9 mg/dL 8.6 - 10.4 mg/dL [facility] Chloride [Moles/Vol] 104 mmol/L 98 - 107 mmol/L [facility] CO2 [Moles/Vol] 24 mmol/L 20 - 31 mmol/L [facility] Creatinine [Mass/Vol] 1.47 mg/dL High 0.70 - 1.20 mg/dL [facility] GFR 58 mL/min Low >60 [facility] GFR Non- 48 mL/min Low >60 [facility] Glucose [Mass/Vol] 95 mg/dL 70 - 99 mg/dL [facility] Interpretation and review of laboratory results Abnormal [facility] Potassium [Moles/Vol] 4.0 mmol/L 3.7 - 5.3 mmol/L [facility] Sodium [Moles/Vol] 137 mmol/L 135 - 144 mmol/L [facility] Urea nitrogen (BldV) [Mass/Vol] 21 mg/dL 8 - 23 mg/dL [facility] Urea nitrogen/Creatini ne (Bld) [Mass ratio] 14 [facility] CBCon 07-10-2021 Hematocrit (Bld) [Volume fraction] 36.0 % Low 40.7 - 50.3 % [facility] Hemoglobin.gastro intestinal spec 1 Ql (Stl) 12.5 g/dL Low 13.0 - 17.0 g/dL [facility] Interpretation and review of laboratory results Abnormal [facility] MCH (RBC) [Entitic mass] 29.9 pg 25.2 - 33.5 pg [facility] MCHC (RBC) [Mass/Vol] 34.7 g/dL 28.4 - 34.8 g/dL [facility] MCV (RBC) [Entitic vol] 86.1 fL 82.6 - 102.9 fL [facility] NRBC Automated 0.0 0.0 per 100 WBC [facility] Platelet distribution width (Bld) [Ratio] 12.4 % 11.8 - 14.4 % [facility] Platelet mean volume (Bld) [Entitic vol] 9.9 fL 8.1 - 13.5 fL [facility] Platelets (Bld) [#/Vol] 239 10*3/uL [facility] RBC (Bld) [#/Vol] 4.18 10*6/uL Low 4.21 - 5.77 m/uL [facility] WBC (Bld) [#/Vol] 9.0 10*3/uL [facility] [place] Laboratory - Chemistry and C hemistry - challengeon 07-10-2021 GFR/1.73 sq M.predicted MDRD (S/P/Bld) [Vol rate/Area] [facility] Comment on above: Average GFR for 60-6 9 years old: 85 mL/min/1.73sq m Chronic Kidney Disease: <60 mL/min/1.73sq m Kidney failure: <15 mL/min/1.73sq m eGFR calculated using average adult body mass. Additional eGFR calculator available at: http://www.[employer]/multiple_crcl_2012.htm Stage 1: Some kidney damage normal GFR Stage 2: Mild kidney damage GFR 60-89 Stage 3: Moderate kidney damage GFR 30-59 Stage 4: Severe kidney damage GFR 15-29 Stage 5: Severe kidney damage GFR <15 ESRD - chronic treatment by dialysis or transplant FLUORO FOR SURGICAL PROCEDUR ESon 07-09-2021 Radiology exam is co mplete. No Radiologist dictation. Please follow up with ordering provider. [facility] RIS CONSOLIDATED COVID-19on 07-06-2021 SARS-CoV-2 (COVID-19) RNA JOHN+probe Ql (Unsp spec) [facility] SARS-CoV-2 (COVID-19) RNA JOHN+probe Ql (Unsp spec) Not detected Not Detected [facility] Comment on above: The specimen is NEGATIVE [...] this assay. Fact sheet for Healthcare Providers: https://www.fda.gov/media/419717/download Fact sheet for Patients: https://www.fda.gov/media/525840/download METHODOLOGY: RT-PCR Source .NASOPHARYNGEAL SWAB [facility] [place] [facility] [place] XR KUB 1 VIEWon 06-25-2021 XR KUB [...] DUSTIN TUCKER Date: 2021-06-25 10:[address] [facility] CARDIAC NIKO 3-6on 2 CK [Catalytic activity/Vol] 85 U/L Normal 55-[address] [facility] Comment on above: Performed By: #### C MREP #### [facility] [address] [address] [address] Wesley Ashraf CK.MB [Mass/Vol] 1.42 ng/mL Normal <=2.37 [facility] Comment on above: Performed By: #### C MREP #### [facility] [address] [place] [address] Dr. Wesley Ashraf HSTROP 10.1 pg/mL Normal 4.0-42.[address] [facility] Comment on above: Result Comment: CUT- OFF POINTS HAVE BEEN ESTABLISHED BASED ON THE FOURTH UNIVERSAL DEFINITIONS OF MYOCARDIAL INFARCTION. THE UPPER REFERENCE LIMIT (URL) OF TROPONIN, DEFINED THE 99TH PERCENTILE OF cTnI DISTRIBUTION IN A REFERENCE POPULATION, HAS BEEN CONFIRMED THE DECISION THRESHOLD FOR MS DIAGNOSIS. Performed By: #### C MREP #### [facility] [address] [place] [address] Dr. Wesley Ashraf CK [Catalytic activity/Vol] 101 U/L Normal 55-[address] [facility] Comment on above: Performed By: #### C MREP #### [facility] [address] [place] [address] Dr. Wesley Ashraf CK.MB [Mass/Vol] 1.64 ng/mL Normal <=2.37 [facility] Comment on above: Performed By: #### C MREP #### [facility] [address] [place] [address] Dr. Wesley Ashraf HSTROP 9.3 pg/mL Normal 4.0-42.[address] [facility] Comment on above: Result Comment: CUT- OFF POINTS HAVE BEEN ESTABLISHED BASED ON THE FOURTH UNIVERSAL DEFINITIONS OF MYOCARDIAL INFARCTION. THE UPPER REFERENCE LIMIT (URL) OF TROPONIN, DEFINED THE 99TH PERCENTILE OF cTnI DISTRIBUTION IN A REFERENCE POPULATION, HAS BEEN CONFIRMED THE DECISION THRESHOLD FOR MS DIAGNOSIS. Performed By: #### C MREP #### [facility] [id number] Wesley Ashraf CT ABD/PELVIS WO CONon [...] LENIN JAY Date: 2021-06-22 22:[address] [facility] CULTURE URINEon 06-23-2021 CULTURE URINE Culture Observations : LIGHT GROWTH OF MIXED SKIN MEGGAN. NO POTENTIAL PATHOGENS SEEN. Normal [facility] Comment on above: Performed By: #### C BC #### [facility] [address] [place] [address] Dr. Wesley Ashraf ER URINE PROFILEon 2 Bilirubin Ql (U) Negative Normal NEGATIVE [facility] Comment on above: Performed By: #### U MICRO, ERUR #### [facility] [address] [place] [address] Dr. Wesley Ashraf Clarity (U) CLEAR Normal CLEAR [facility] Comment on above: Performed By: #### U MICRO, ERUR #### [facility] [address] [place] [address] Dr. Wesley Ashraf Color (U) LT. YELLOW Normal YELLOW [facility] Comment on above: Performed By: #### U MICRO, ERUR #### [facility] [address] [address] [address] Wesley MICHAELS A micrscopic examina tion will be performed if indicated. Normal [facility] Comment on above: Performed By: #### U MICRO, ERUR #### [facility] [address] [place] [address] Dr. Wesley Ashraf Glucose Ql (U) Negative Normal NEGATIVE [facility] Comment on above: Performed By: #### U MICRO, ERUR #### [facility] [address] [place] [address] Dr. Wesley Ashraf Hemoglobin Ql (U) MODERATE Abnormal NEGATIVE [facility] Comment on above: Performed By: #### U MICRO, ERUR #### [facility] [address] [place] [address] Dr. Wesley Ashraf Ketones Ql (U) Negative Normal NEGATIVE [facility] Comment on above: Performed By: #### U MICRO, ERUR #### [facility] [address] [place] [address] Dr. Wesley Ashraf LEUKOCYTES Negative Normal NEGATIVE [facility] Comment on above: Performed By: #### U MICRO, ERUR #### [facility] [address] [place] [address] Dr. Wesley Ashraf Nitrite Ql (U) Negative Normal NEGATIVE [facility] Comment on above: Performed By: #### U MICRO, ERUR #### [facility] [address] [place] [address] Dr. Wesley Ashraf pH (U) 6.0 [pH] Normal 5-[address] [facility] Comment on above: Performed By: #### U MICRO, ERUR #### [facility] [address] [place] [address] Dr. Wesley Ashraf SPEC GRAVITY 1.025 Normal 1.005-<=1. 025 [facility] Comment on above: Performed By: #### U MICRO, ERUR #### [facility] [facility] [address] [place] [address] Dr. Wesley Ashraf UA PROTEIN TRACE Normal NEGATIVE/ TRACE [facility] Comment on above: Performed By: #### U MICRO, ERUR #### [facility] [address] [place] [address] Dr. Wesley Ashraf UR MICRO IND INDICATED Normal [facility] Comment on above: Performed By: #### U MICRO, ERUR #### [facility] [address] [place] [address] Dr. Wesley Ashraf Urobilinogen Qn (U) 0.2 {Al'U}/dL Normal 0.2 - 1.[address] [facility] Comment on above: Performed By: #### U MICRO, ERUR #### [facility] [address] [place] [address] Dr. Wesley Ashraf URINE MICROSCOPIC ONLYon BACTERIA SMALL Abnormal NONE SEEN [facility] Comment on above: Performed By: #### U MICRO, ERUR #### [facility] [address] [place] [address] Dr. Wesley Ashraf Bacteria identified Cx Nom (U) INDICATED Normal [facility] Comment on above: Performed By: #### U MICRO, ERUR #### [facility] [address] [place] [address] Dr. Wesley Ashraf CAST NONE SEEN Normal NONE SEEN [facility] Comment on above: Performed By: #### U MICRO, ERUR #### [facility] [address] [place] [address] Dr. Wesley Ashraf Crystals LM Nom (Urine sed) NONE SEEN Normal NONE SEEN [facility] Comment on above: Performed By: #### U MICRO, ERUR #### [facility] [address] [place] [address] Dr. Wesley Ashraf Epithelial cells LM Ql (Urine sed) RARE Normal NONE SEEN /RARE [facility] Comment on above: Performed By: #### U MICRO, ERUR #### [facility] [address] [place] [address] Dr. Wesley Ashraf MUCOUS NONE SEEN Normal NONE SEEN [facility] Comment on above: Performed By: #### U MICRO, ERUR #### [facility] [address] [place] [address] Dr. Wesley Ashraf RBC 50-75 Abnormal 0-[address] [facility] Comment on above: Performed By: #### U MICRO, ERUR #### [facility] [address] [place] [address] Dr. Wesley Ashraf WBC 0-2 Abnormal NONE SEEN [facility] Comment on above: Performed By: #### U MICRO, ERUR #### [facility] [address] [place] [address] Dr. Wesley Ashraf BNPon 06-22-2021 Natriuretic peptide B (Bld) [Mass/Vol] 41.0 pg/mL Normal <=900.[address] [facility] Comment on above: Performed By: #### C BC #### [facility] [address] [place] [address] Dr. Wesley Ashraf CBC AUTO DIFFon 06-22-2021 BASO # 0.0 103/ul Normal 0.0-0.1 [facility] Comment on above: Performed By: #### C BC #### [facility] [address] [place] [address] Dr. Wesley Ashraf Basophils/100 WBC (Bld) 0.2 % Normal 0.2-2.0 [facility] Comment on above: Performed By: #### C BC #### [facility] [address] [place] [address] Dr. Wesley Ashraf EO # 0.1 103/ul Normal 0.0-0.[address] [facility] Comment on above: Performed By: #### C BC #### [facility] [address] [place] [address] Dr. Wesley Ashraf Eosinophils/100 WBC (Bld) 1.0 % Normal 0.9-7.[address] [facility] Comment on above: Performed By: #### C BC #### [facility] [address] [place] [address] Dr. Wesley Ashraf Erythrocyte distribution width (RBC) [Ratio] 12.5 % Normal 11.0-15.[address] [facility] Comment on above: Performed By: #### C BC #### [facility] [address] [place] [address] Dr. Wesley Ashraf Hematocrit (Bld) [Volume fraction] 41.3 % Critically low 42.0-54.0 [facility] Comment on above: Performed By: #### C BC #### [facility] [address] [place] [address] Dr. Wesley Ashraf Hemoglobin (Bld) [Mass/Vol] 14.4 g/dL Normal 14.0-18.0 [facility] Comment on above: Performed By: #### C BC #### [facility] [address] [place] [address] Dr. Wesley Ashraf IG # 0.04 10e3/ul Critically high 0.00-0.[address] [facility] Comment on above: Performed By: #### C BC #### [facility] [address] [place] [address] Dr. Wesley Ashraf IG % 0.3 % Normal 0.0-0.5 [facility] Comment on above: Performed By: #### C BC #### [facility] [address] [place] [address] Dr. Wesley Ashraf LYMPH # 1.8 103/ul Normal 1.2-3.8 [facility] Comment on above: Performed By: #### C BC #### [facility] [address] [place] [address] Dr. Wesley Ashraf Lymphocytes/100 WBC (Bld) 15.1 % Critically low 20.5-60.0 [facility] Comment on above: Performed By: #### C BC #### [facility] [address] [place] [address] Dr. Wesley Ashraf MANUAL DIFF REQ NO Normal [facility] Comment on above: Performed By: #### C BC #### [facility] [address] [place] [address] Dr. Wesley Ashraf MCH (RBC) [Entitic mass] 29.7 pg Normal 25.9-34.0 [facility] Comment on above: Performed By: #### C BC #### [facility] [address] [place] [address] Dr. Wesley Ashraf MCHC (RBC) [Mass/Vol] 34.9 g/dL Normal 29.9-35.[address] [facility] Comment on above: Performed By: #### C BC #### [facility] [address] [address] [address] Wesley Ashraf MCV (RBC) [Entitic vol] 85.2 fL Normal 80.0-94.[address] [facility] Comment on above: Performed By: #### C BC #### [facility] [address] [address] [address] Wesley Ashraf MONO # 0.9 103/ul Critically high 0.3-0.8 [facility] Comment on above: Performed By: #### C BC #### [facility] [address] [address] [address] Wesley Ashraf Monocytes/100 WBC (Bld) 7.3 % Normal 1.7-12.0 [facility] Comment on above: Performed By: #### C BC #### [facility] [address] [address] [address] Wesley Ashraf NEUT # 9.1 103/ul Critically high 1.4-6.5 [facility] Comment on above: Performed By: #### C BC #### [facility] [address] [address] [address] Wesley Ashraf Neutrophils/100 WBC (Bld) 76.1 % Critically high 43.0-75.[address] [facility] Comment on above: Performed By: #### C BC #### [facility] [address] [address] [address] Wesley Ashraf Platelet mean volume (Bld) [Entitic vol] 9.7 fL Normal 9.5-13.[address] [facility] Comment on above: Performed By: #### C BC #### [facility] [address] [address] [address] Wesley Ashraf PLT 268 103/ul Normal 150-[address] [facility] Comment on above: Performed By: #### C BC #### [facility] [address] [address] [address] Wesley Ashraf RBC 4.85 106/ul Normal 4.70-6.[address] [facility] Comment on above: Performed By: #### C BC #### [facility] [address] [place] [address] Dr. Wesley Ashraf WBC 12.0 103/ul Critically high 4.0-11.0 [facility] Comment on above: Performed By: #### C BC #### [facility] [address] [place] [address] Dr. Wesley Ashraf D-DIMERon 06-22-2021 D-DIMER 0.33 mg/L FEU Normal 0.19-0.50 [facility] Comment on above: Performed By: #### C MREP #### [facility] [address] [place] [address] Dr. Wesley Ashraf D-DIMER COMMENTS SEE BELOW Normal [facility] Comment on above: Result Comment: Incr [...] hospitalization. Performed By: #### C MREP #### [facility] [address] [place] [address] Dr. Wesley Ashraf PROF CHEM 8 (BAS METB)on Anion gap [Moles/Vol] 15.0 mmol/L Normal [facility] Comment on above: Performed By: #### C BC #### [facility] [address] [place] [address] Dr. Wesley Ashraf Calcium [Mass/Vol] 9.3 mg/dL Normal 8.4-10.[address] [facility] Comment on above: Performed By: #### C BC #### [facility] [address] [place] [address] Dr. Wesley Ashraf Chloride [Moles/Vol] 104 mmol/L Normal 98-[address] [facility] Comment on above: Performed By: #### C BC #### [facility] [address] [address] [address] Wesley Ashraf CO2 [Moles/Vol] 24.9 mmol/L Normal 22.0-30.0 [facility] Comment on above: Performed By: #### C BC #### [facility] [address] [address] [address] Wesley Ashraf Creatinine [Mass/Vol] 0.95 mg/dL Normal 0.66-1.25 [facility] Comment on above: Performed By: #### C BC #### [facility] [address] [place] [address] Dr. Wesley Ashraf EGFR-AF NIUEAN >60 Normal >=60 [facility] Comment on above: Performed By: #### C BC #### [facility] [address] [place] [address] Dr. Wesley Ashraf EGFR-NON AF NIUEAN >60 Normal >=[address] [facility] Comment on above: Performed By: #### C BC #### [facility] [address] [place] [address] Dr. Wesley Ashraf Glucose [Mass/Vol] 103 mg/dL Normal 74-[address] [facility] Comment on above: Performed By: #### C BC #### [facility] [address] [place] [address] Dr. Wesley Ashraf Potassium [Moles/Vol] 3.9 mmol/L Normal 3.4-5.[address] [facility] Comment on above: Performed By: #### C BC #### [facility] [address] [place] [address] Dr. Wesley Ashraf Sodium [Moles/Vol] 140 mmol/L Normal 137-[address] [facility] Comment on above: Performed By: #### C BC #### [facility] [address] [place] [address] Dr. Wesley Ashraf Urea nitrogen [Mass/Vol] 21.0 mg/dL Critically high 9.0-20.[address] [facility] Comment on above: Performed By: #### C BC #### [facility] [address] [place] [address] Dr. Wesley Ashraf Urea nitrogen/Creatini ne [Mass ratio] 22.1 mg/mg Normal [facility] Comment on above: Performed By: #### C BC #### [facility] [address] [place] [address] Dr. Wesley Ashraf PROTIMEon 06-22-2021 INR Coag (PPP) [Relative time] 0.95 {INR} Normal [facility] Comment on above: Performed By: #### C MREP #### [facility] [address] [place] [address] Dr. Wesley Ashraf INR GUIDELINES SEE BELOW Normal [facility] Comment on above: Result Comment: LILI RED INR: 2.0 - 3.0 CONDITIONS NOT LISTED BELOW 2.5 - 3.5 FOR PROSTHETIC HEART VALVE REPLACEMENT 2.5 - 3.5 RECURRENT THROMBOSIS Performed By: #### C MREP #### [facility] [address] [place] [address] Dr. Wesley Ashraf PT Coag (PPP) [Time] 10.3 s Normal 9.0-11.[address] [facility] Comment on above: Performed By: #### C MREP #### [facility] [address] [place] [address] Dr. Wesley Ashraf PTTon 06-22-2021 aPTT Coag (Bld) [Time] 27.9 s Normal 22.3-36.[address] [facility] Comment on above: Performed By: #### C MREP #### [facility] [address] [place] [address] Dr. Wesley Ashraf TROPONIN, HIGH SENSITIVITYon 06-22-2021 HSTROP 6.7 pg/mL Normal 4.0-42.[address] [facility] Comment on above: Result Comment: CUT- OFF POINTS HAVE BEEN ESTABLISHED BASED ON THE FOURTH UNIVERSAL DEFINITIONS OF MYOCARDIAL INFARCTION. THE UPPER REFERENCE LIMIT (URL) OF TROPONIN, DEFINED THE 99TH PERCENTILE OF cTnI DISTRIBUTION IN A REFERENCE POPULATION, HAS BEEN CONFIRMED THE DECISION THRESHOLD FOR MS DIAGNOSIS. Performed By: #### B MP, AMADODM #### [facility] [address] [place] [address] Dr. Wesley Ashraf INSULINon 05-24-2021 Insulin 10.6 uIU/mL Normal 2.6-24.9 [facility] Comment on above: Performed By: #### I NSULIN #### [facility] [address] [place] [address] Dr. Wesley Ashraf PSA SCREENING LABCORPon 05-11 Prostate specific Ag [Mass/Vol] 1.0 ng/mL Normal 0.0-4.0 [facility] Comment on above: Result Comment: Anibal graff ECLLEA methodology. . According to the [place] [employer], Serum PSA should decrease and [...] absence of malignant disease. Performed By: #### B ERIC PAULSON #### [facility] [address] [place] [address] Dr. Wesley Ashraf AMYLASEon 05-23-2021 Amylase [Catalytic activity/Vol] 36 U/L Normal 31-[address] [facility] Comment on above: Performed By: #### C MREP #### [facility] [address] [place] [address] Dr. Wesley Ashraf CBC AUTO DIFFon 05-23-2021 BASO # 0.0 103/ul Normal 0.0-0.1 [facility] Comment on above: Performed By: #### B ERIC PAULSON #### [facility] [address] [place] [address] Dr. Wesley Ashraf Basophils/100 WBC (Bld) 0.4 % Normal 0.2-2.[address] [facility] Comment on above: Performed By: #### B ERIC PAULSON #### [facility] [address] [place] [address] Dr. Wesley Ashraf EO # 0.2 103/ul Normal 0.0-0.[address] [facility] Comment on above: Performed By: #### B MP, CMADM #### [facility] [address] [place] [address] Dr. Wesley Ashraf Eosinophils/100 WBC (Bld) 2.3 % Normal 0.9-7.0 [facility] Comment on above: Performed By: #### B KHURRAM, CMADM #### [facility] [address] [place] [address] Dr. Wesley Ashraf Erythrocyte distribution width (RBC) [Ratio] 13.0 % Normal 11.0-15.[address] [facility] Comment on above: Performed By: #### B KHURRAM, CMADM #### [facility] [address] [place] [address] Dr. Wesley Ashraf Hematocrit (Bld) [Volume fraction] 39.2 % Critically low 42.0-54.0 [facility] Comment on above: Performed By: #### B KHURRAM, CMADM #### [facility] [address] [place] [address] Dr. Wesley Ashraf Hemoglobin (Bld) [Mass/Vol] 13.4 g/dL Critically low 14.0-18.0 [facility] Comment on above: Performed By: #### B KHURRAM, CMADM #### [facility] [address] [place] [address] Dr. Wesley Ashraf IG # 0.02 10e3/ul Normal 0.00-0.[address] [facility] Comment on above: Performed By: #### B KHURRAM, CMADM #### [facility] [address] [place] [address] Dr. Wesley Ashraf IG % 0.3 % Normal 0.0-0.[address] [facility] Comment on above: Performed By: #### B KHURRAM, CMADM #### [facility] [address] [place] [address] Dr. Wesley Ashraf LYMPH # 1.6 103/ul Normal 1.2-3.[address] [facility] Comment on above: Performed By: #### B KHURRAM, CMADM #### [facility] [address] [place] [address] Dr. Wesley Ashraf Lymphocytes/100 WBC (Bld) 22.6 % Normal 20.5-60.0 [facility] Comment on above: Performed By: #### B MP, CMADM #### [facility] [address] [place] [address] Dr. Wesley Ashraf MANUAL DIFF REQ NO Normal [facility] Comment on above: Performed By: #### B MP, CMADM #### [facility] [address] [place] [address] Dr. Wesley Ashraf MCH (RBC) [Entitic mass] 28.9 pg Normal 25.9-34.0 [facility] Comment on above: Performed By: #### B KHURRAM, CMADM #### [facility] [address] [place] [address] Dr. Wesley Ashraf MCHC (RBC) [Mass/Vol] 34.2 g/dL Normal 29.9-35.2 [facility] Comment on above: Performed By: #### B KHURRAM, CMADM #### [facility] [address] [place] [address] Dr. Wesley Ashraf MCV (RBC) [Entitic vol] 84.7 fL Normal 80.0-94.0 [facility] Comment on above: Performed By: #### B KHURRAM, CMADM #### [facility] [address] [place] [address] Dr. Wesley Ashraf MONO # 0.6 103/ul Normal 0.3-0.8 [facility] Comment on above: Performed By: #### B KHURRAM, CMADM #### [facility] [address] [place] [address] Dr. Wesley Ashraf Monocytes/100 WBC (Bld) 8.0 % Normal 1.7-12.[address] [facility] Comment on above: Performed By: #### B KHURRAM, CMADM #### [facility] [address] [place] [address] Dr. Wesley Ashraf NEUT # 4.6 103/ul Normal 1.4-6.5 [facility] Comment on above: Performed By: #### B KHURRAM, CMADM #### [facility] [address] [place] [address] Dr. Wesley Ashraf Neutrophils/100 WBC (Bld) 66.4 % Normal 43.0-75.0 [facility] Comment on above: Performed By: #### B ERIC PAULSON #### [facility] [address] [address] [address] Wesley Ashraf Platelet mean volume (Bld) [Entitic vol] 9.8 fL Normal 9.5-13.5 [facility] Comment on above: Performed By: #### B ERIC PAULSON #### [facility] [address] [address] [address] Wesley Ashraf PLT 295 103/ul Normal 150-[address] [facility] Comment on above: Performed By: #### B ERIC PAULSON #### [facility] [address] [address] [address] Wesley Ashraf RBC 4.63 106/ul Critically low 4.70-6.10 [facility] Comment on above: Performed By: #### B ERIC PAULSON #### [facility] [address] [address] [address] Wesley Ashraf WBC 7.0 103/ul Normal 4.0-11.[address] [facility] Comment on above: Performed By: #### B ERIC PAULSON #### [facility] [address] [address] [address] Wesley Ashraf GLYCOHEMOGLOBIN A1Con 2021 ADA RECOMMENDATION ADA THERAPEUTIC TARGET 6.0 - 7.0 ACTION SUGGESTED > 7.0 Normal [facility] Comment on above: Performed By: #### B ERIC PAULSON #### [facility] [address] [address] [address] Wesley Ashraf Glucose [Mass/Vol] 117 mg/dL Normal [facility] Comment on above: Performed By: #### B ERIC PAULSON #### [facility] [address] [address] [address] Wesley Ashraf HbA1c (Bld) [Mass fraction] 5.7 % Normal <=6.0 [facility] Comment on above: Performed By: #### B ERIC PAULSON #### [facility] [address] [address] [address] Wesley Ashraf LIPASEon 05-23-2021 Lipase [Catalytic activity/Vol] 128.0 U/L Normal 23.0-300.0 [facility] Comment on above: Performed By: #### C MREP #### [facility] [address] [address] [address] Wesley Ashraf LIPID PROFILEon 05-23-2021 CHOL-HDL RATIO NORM SEE BELOW Normal [facility] Comment on above: Result Comment: 3.3 - 4.4 LOW RISK 4.4 - 7.1 AVERAGE RISK 7.1 - 11.0 MODERATE RISK >11.0 HIGH RISK Performed By: #### C MREP #### [facility] [address] [place] [address] Dr. Wesley Ashraf Cholesterol [Mass/Vol] 135 mg/dL Normal <=200 [facility] Comment on above: Performed By: #### C MREP #### [facility] [address] [address] [address] Wesley Ashraf Cholesterol in HDL [Mass/Vol] 56 mg/dL Normal [facility] Comment on above: Performed By: #### C MREP #### [facility] [address] [address] [address] Wesley Ashraf Cholesterol in LDL [Mass/Vol] 39.4 mg/dL Normal [facility] Comment on above: Performed By: #### C MREP #### [facility] [address] [place] [address] Dr. Wesley Ashraf Cholesterol.total /Cholesterol in HDL [Mass ratio] 2.4 {ratio} Normal [facility] Comment on above: Performed By: #### C MREP #### [facility] [address] [address] [address] Wesley Ashraf HDL NORMAL > or = 60 mg/dl - LO W CARDIOVASCULAR RISK <40 mg/dl - HIGH CARDIOVASCULAR RISK Normal [facility] Comment on above: Performed By: #### C MREP #### [facility] [address] [place] [address] Dr. Wesley Ashraf LDL CALC NORMAL SEE BELOW Normal [facility] Comment on above: Result Comment: <100 mg/dl OPTIMAL 100 - 129 mg/dl NEAR OR ABOVE OPTIMAL 130 - 159 mg/dl BORDERLINE HIGH 160 - 189 mg/dl HIGH >190 mg/dl VERY HIGH Performed By: #### C MREP #### [facility] [address] [place] [address] Dr. Wesley Ashraf Triglyceride [Mass/Vol] 198 mg/dL Critically high <=[address] [facility] Comment on above: Performed By: #### C MREP #### [facility] [address] [place] [address] Dr. Wesley Ashraf VLDL CALC 39.6 mg/dL Normal [facility] Comment on above: Performed By: #### C MREP #### [facility] [address] [place] [address] Dr. Wesley Ashraf PROF 14(COMP METB)on 022 Albumin [Mass/Vol] 3.7 g/dL Normal 3.5-5.0 [facility] Comment on above: Performed By: #### C BC #### [facility] [address] [place] [address] Dr. Wesley Ashraf Albumin/Globulin [Mass ratio] 1.1 {ratio} Normal [facility] Comment on above: Performed By: #### C BC #### [facility] [address] [place] [address] Dr. Wesley Ashraf ALP [Catalytic activity/Vol] 63 U/L Normal 38-[address] [facility] Comment on above: Performed By: #### C BC #### [facility] [address] [place] [address] Dr. Wesley Ashraf ALT [Catalytic activity/Vol] 36 U/L Normal 21-[address] [facility] Comment on above: Performed By: #### C BC #### [facility] [address] [place] [address] Dr. Wesley Ashraf Anion gap [Moles/Vol] 16.4 mmol/L Normal [facility] Comment on above: Performed By: #### C BC #### [facility] [address] [place] [address] Dr. Wesley Ashraf AST [Catalytic activity/Vol] 20 U/L Normal 17-[address] [facility] Comment on above: Performed By: #### C BC #### [facility] [address] [place] [address] Dr. Wesley Ashraf Bilirubin [Mass/Vol] 0.6 mg/dL Normal 0.2-1.[address] [facility] Comment on above: Performed By: #### C BC #### [facility] [address] [place] [address] Dr. Wesley Ashraf Calcium [Mass/Vol] 8.9 mg/dL Normal 8.4-10.[address] [facility] Comment on above: Performed By: #### C BC #### [facility] [address] [place] [address] Dr. Wesley Ashraf Chloride [Moles/Vol] 102 mmol/L Normal 98-107 [facility] Comment on above: Performed By: #### C BC #### [facility] [address] [place] [address] Dr. Wesley Ashraf CO2 [Moles/Vol] 23.7 mmol/L Normal 22.0-30.0 [facility] Comment on above: Performed By: #### C BC #### [facility] [address] [place] [address] Dr. Wesley Ashraf Creatinine [Mass/Vol] 0.81 mg/dL Normal 0.66-1.25 [facility] Comment on above: Performed By: #### C BC #### [facility] [facility] [address] [place] [address] Dr. Wesley Ashraf EGFR-AF NIUEAN >60 Normal >=60 [facility] Comment on above: Performed By: #### C BC #### [facility] [address] [place] [address] Dr. Wesley Ashraf EGFR-NON AF NIUEAN >60 Normal >=[address] [facility] Comment on above: Performed By: #### C BC #### [facility] [address] [place] [address] Dr. Wesley Ashraf Globulin (S) [Mass/Vol] 3.3 g/dL Normal [facility] Comment on above: Performed By: #### C BC #### [facility] [address] [address] [address] Wesley Ashraf Glucose [Mass/Vol] 104 mg/dL Normal 74-106 [facility] Comment on above: Performed By: #### C BC #### [facility] [address] [address] [address] Wesley Ashraf Potassium [Moles/Vol] 4.1 mmol/L Normal 3.4-5.0 [facility] Comment on above: Performed By: #### C BC #### [facility] [address] [address] [address] Wesley Ashraf Protein [Mass/Vol] 7.0 g/dL Normal 6.1-8.2 [facility] Comment on above: Performed By: #### C BC #### [facility] [address] [address] [address] Wesley Ashraf Sodium [Moles/Vol] 138 mmol/L Normal 137-145 [facility] Comment on above: Performed By: #### C BC #### [facility] [address] [address] [address] Wesley Ashraf Urea nitrogen [Mass/Vol] 17.0 mg/dL Normal 9.0-20.0 [facility] Comment on above: Performed By: #### C BC #### [facility] [address] [address] [address] Wesley Ashraf Urea nitrogen/Creatini ne [Mass ratio] 21.0 mg/mg Normal [facility] Comment on above: Performed By: #### C BC #### [facility] [address] [address] [address] Wesley Ashraf URIC ACID SERUMon 05-23-2021 Urate [Mass/Vol] 4.6 mg/dL Normal 3.5-8.5 [facility] Comment on above: Performed By: #### C MREP #### [facility] [address] [address] [address] Wesley Ashraf CARDIAC NIKO ADMITon 021 CK [Catalytic activity/Vol] 105 U/L Normal 55-170 [facility] Comment on above: Performed By: #### B KHURRAM, CMADM #### [facility] [address] [address] [address] Wesley Ashraf CK.MB [Mass/Vol] 1.63 ng/mL Normal <=2.37 [facility] Comment on above: Performed By: #### B KHURRAM, CMADM #### [facility] [address] [place] [address] Dr. Wesley Ashraf HSTROP 7.7 pg/mL Normal 4.0-42.2 [facility] Comment on above: Result Comment: CUT- OFF POINTS HAVE BEEN ESTABLISHED BASED ON THE FOURTH UNIVERSAL DEFINITIONS OF MYOCARDIAL INFARCTION. THE UPPER REFERENCE LIMIT (URL) OF TROPONIN, DEFINED THE 99TH PERCENTILE OF cTnI DISTRIBUTION IN A REFERENCE POPULATION, HAS BEEN CONFIRMED THE DECISION THRESHOLD FOR MS DIAGNOSIS. Performed By: #### B KHURRAM, CMADM #### [facility] [address] [place] [address] Dr. Wesley Ashraf ARUN 33.0 ng/mL Normal <=121.0 [facility] Comment on above: Performed By: #### B KHURRAM, AMADODM #### [facility] [address] [place] [address] Dr. Wesley Ashraf CBC AUTO DIFFon 04-13-2021 BASO # 0.0 103/ul Normal 0.0-0.1 [facility] Comment on above: Performed By: #### B KHURRAM, AMADODM #### [facility] [address] [place] [address] Dr. Wesley Ashraf Basophils/100 WBC (Bld) 0.2 % Normal 0.2-2.[address] [facility] Comment on above: Performed By: #### B KHURRAM, CMADM #### [facility] [address] [place] [address] Dr. Wesley Ashraf EO # 0.3 103/ul Normal 0.0-0.7 [facility] Comment on above: Performed By: #### B KHURRAM, CMADM #### [facility] [address] [place] [address] Dr. Wesley Ashraf Eosinophils/100 WBC (Bld) 4.2 % Normal 0.9-7.0 [facility] Comment on above: Performed By: #### ERIC Cannon MP #### [facility] [address] [place] [address] Dr. Wesley Ashraf Erythrocyte distribution width (RBC) [Ratio] 12.3 % Normal 11.0-15.0 [facility] Comment on above: Performed By: #### B ERIC PAULSON #### [facility] [address] [place] [address] Dr. Wesley Ashraf Hematocrit (Bld) [Volume fraction] 38.6 % Critically low 42.0-54.0 [facility] Comment on above: Performed By: #### ERIC Cannon MP #### [facility] [address] [place] [address] Dr. Wesley Ashraf Hemoglobin (Bld) [Mass/Vol] 13.5 g/dL Critically low 14.0-18.0 [facility] Comment on above: Performed By: #### ERIC Cannon MP #### [facility] [address] [place] [address] Dr. Wesley Ashraf IG # 0.02 10e3/ul Normal 0.00-0.[address] [facility] Comment on above: Performed By: #### ERIC Cannon MP #### [facility] [address] [place] [address] Dr. Wesley Ashraf IG % 0.3 % Normal 0.0-0.[address] [facility] Comment on above: Performed By: #### ERIC Cannon MP #### [facility] [address] [place] [address] Dr. Wesley Ashraf LYMPH # 1.5 103/ul Normal 1.2-3.[address] [facility] Comment on above: Performed By: #### Davis PAULSON CMADM #### [facility] [address] [place] [address] Dr. Wesley Ashraf Lymphocytes/100 WBC (Bld) 25.1 % Normal 20.5-60.[address] [facility] Comment on above: Performed By: #### Davis PAULSON CMADM #### [facility] [address] [place] [address] Dr. Wesley Ashraf MANUAL DIFF REQ NO Normal [facility] Comment on above: Performed By: #### B KHURRAM, ERIC #### [facility] [address] [place] [address] Dr. Wesley Ashraf MCH (RBC) [Entitic mass] 29.3 pg Normal 25.9-34.0 [facility] Comment on above: Performed By: #### B KHURRAM, AMADODM #### [facility] [address] [place] [address] Dr. Wesley Ashraf MCHC (RBC) [Mass/Vol] 35.0 g/dL Normal 29.9-35.[address] [facility] Comment on above: Performed By: #### B KHURRAM, AMADODM #### [facility] [address] [place] [address] Dr. Wesley Ashraf MCV (RBC) [Entitic vol] 83.9 fL Normal 80.0-94.[address] [facility] Comment on above: Performed By: #### B KHURRAM, AMADODM #### [facility] [address] [place] [address] Dr. Wesley Ashraf MONO # 0.5 103/ul Normal 0.3-0.[address] [facility] Comment on above: Performed By: #### B KHURRAM, AMADODM #### [facility] [address] [place] [address] Dr. Wesley Ashraf Monocytes/100 WBC (Bld) 8.4 % Normal 1.7-12.[address] [facility] Comment on above: Performed By: #### B KHURRAM, CMADM #### [facility] [address] [place] [address] Dr. Wesley Ashraf NEUT # 3.7 103/ul Normal 1.4-6.[address] [facility] Comment on above: Performed By: #### B KHURRAM, AMADODM #### [facility] [address] [place] [address] Dr. Wesley Ashraf Neutrophils/100 WBC (Bld) 61.8 % Normal 43.0-75.[address] [facility] Comment on above: Performed By: #### B KHURRAM, CMADM #### [facility] [address] [address] [address] Wesley Ashraf Platelet mean volume (Bld) [Entitic vol] 10.2 fL Normal 9.5-13.5 [facility] Comment on above: Performed By: #### B MP, CMADM #### [facility] [address] [address] [address] Wesley Ashraf PLT 206 103/ul Normal 150-[address] [facility] Comment on above: Performed By: #### B MP, CMADM #### [facility] [address] [address] [address] Wesley Ashraf RBC 4.60 106/ul Critically low 4.70-6.10 [facility] Comment on above: Performed By: #### B KHURRAM, CMADM #### [facility] [address] [place] [address] Dr. Wesley Ashraf WBC 5.9 103/ul Normal 4.0-11.[address] [facility] Comment on above: Performed By: #### B MP, CMADM #### [facility] [address] [place] [address] Dr. Wesley Ashraf Covid-19 PCR (CVDTBH)on SARS-CoV-2 (COVID-19) RNA JOHN+probe Ql (Unsp spec) Detected Critically abnormal NOT DETECTED [facility] Comment on above: Result Comment: This test is not yet approved or cleared by the [place] Food and Drug Administration (FDA). This test was developed by [employer], [place], [place]. The performance characteristics of this test were validated by [facility]. The results are not intended to be used as the sole means for clinical diagnosis or patient management decisions. [facility] is authorized under Clinical Laboratory Improvement Amendments [...] for this test is supported by the [place] of Health and Human Service's declaration that [...] Performed By: #### B MP, CMADM #### [facility] [address] [place] [address] Dr. Wesley Ashraf D-DIMERon 04-13-2021 D-DIMER <0.19 Normal 0.19-0.50 [facility] Comment on above: Performed By: #### D DIM #### [facility] [address] [place] [address] Dr. Wesley Ashraf D-DIMER COMMENTS SEE BELOW Normal [facility] Comment on above: Result Comment: Incr eases [...] hospitalization. Performed By: #### D DIM #### [facility] [address] [place] [address] Dr. Wesley Ashraf [facility] Comment on above: Result Comment: Nega tive for Flu A protein angiten. Infection due to Flu A cannot be ruled out. Flu A angiten in the sample may be below the detection limit of the test. Performed By: #### C MREP #### [facility] [address] [place] [address] Dr. Wesley Ashraf [facility] SEE BELOW Normal [facility] Comment on above: Result Comment: Nega tive for Flu B protein antigen. Infection due to Flu B cannot be ruled out. Flu B antigen in the sample may be below the detection limit of the test. Performed By: #### C MREP #### [facility] [address] [address] [address] Wesley Ashraf INFLUENZA A AG Negative Normal NEGATIVE SEE COMMENT [facility] Comment on above: Performed By: #### C MREP #### [facility] [address] [address] [address] Wesley Ashraf INFLUENZA B AG Negative Normal NEGATIVE SEE COMMENT [facility] Comment on above: Performed By: #### C MREP #### [facility] [address] [address] [address] Wesley Ashraf INTERNAL CONTROLS Within Normal Limits Normal Wi thin Normal Limits [facility] Comment on above: Performed By: #### C MREP #### [facility] [address] [place] [address] Dr. Wesley Ashraf PROF CHEM 8 (BAS METB)on Anion gap [Moles/Vol] 14.6 mmol/L Normal [facility] Comment on above: Performed By: #### B ERIC PAULSON #### [facility] [address] [place] [address] Dr. Wesley Ashraf Calcium [Mass/Vol] 9.0 mg/dL Normal 8.4-10.[address] [facility] Comment on above: Performed By: #### ERIC Cannon MP #### [facility] [address] [place] [address] Dr. Wesley Ashraf Chloride [Moles/Vol] 101 mmol/L Normal 98-[address] [facility] Comment on above: Performed By: #### ERIC Cannon MP #### [facility] [address] [place] [address] Dr. Wesley Asharf CO2 [Moles/Vol] 25.2 mmol/L Normal 22.0-30.0 [facility] Comment on above: Performed By: #### ERIC Cannon MP #### [facility] [address] [place] [address] Dr. Wesley Ashraf Creatinine [Mass/Vol] 0.76 mg/dL Normal 0.66-1.[address] [facility] Comment on above: Performed By: #### ERIC Cannon MP #### [facility] [address] [address] [address] Wesley Ashraf EGFR-AF NIUEAN >60 Normal >=60 [facility] Comment on above: Performed By: #### B KHURRAM, CMADM #### [facility] [address] [address] [address] Wesley Ashraf EGFR-NON AF NIUEAN >60 Normal >=[address] [facility] Comment on above: Performed By: #### B KHURRAM, AMADODM #### [facility] [address] [address] [address] Wesley Ashraf Glucose [Mass/Vol] 103 mg/dL Normal 74-[address] [facility] Comment on above: Performed By: #### B KHURRAM, AMADODM #### [facility] [address] [address] [address] Wesley Ashraf Potassium [Moles/Vol] 3.8 mmol/L Normal 3.4-5.0 [facility] Comment on above: Performed By: #### B ERIC PAULSON #### [facility] [address] [place] [address] Dr. Wesley Ashraf Sodium [Moles/Vol] 137 mmol/L Normal 137-[address] [facility] Comment on above: Performed By: #### B KHURRAM, AMADODM #### [facility] [address] [place] [address] Dr. Wesley Ashraf Urea nitrogen [Mass/Vol] 17.0 mg/dL Normal 9.0-20.0 [facility] Comment on above: Performed By: #### B KHURRAM, ERIC #### [facility] [address] [place] [address] Dr. Wesley Ashraf Urea nitrogen/Creatini ne [Mass ratio] 22.4 mg/mg Normal [facility] Comment on above: Performed By: #### B KHURRAM, AMADODM #### [facility] [address] [place] [address] Dr. Wesley Ashraf XR CHEST 1 Von 04-13-2021 XR CHEST 1 V EXAM: XR CHEST 1 V HISTORY: SHORTNESS OF BREATH COMPARISON: 08/05/2019 TECHNIQUE: Portable AP chest 7:03 AM FINDINGS: Lungs are clear and heart size is normal. No pleural effusion or pneumothorax IMPRESSION: No acute findings Electronically authenticated by: CHRISTIANA HERNÁNDEZ Date: 2021-04-13 07:[address] [facility] Discharge Summaryon 11-13-19 Discharge Summary MR#: [id number] IUn [facility] Pt. Name: Ronnell Peres Admitted: 11/10/2017 Discharged: 11/11/2017 Date of : 1955 Physician: Andrew Braswell [facility] Name unknown.PRINCIPAL PROBLEM:1. Acute ST-elevated MS.2. Tobacco abuse.3. Alcohol abuse.HOSPITAL COURSE: Mr. Peres is a 62-year-old gentleman with no pastmedical history and reports having not seen a family doctor physician inthe last 2 decades. He presented to the [facility] withcomplaints of acute onset of left-sided chest pain that radiated toshoulder and jaw, that was worse with exertion and was slightly responsiveto nitroglycerin. His EKG at that time showed ST elevations in lead I andaVL for which reason, he was urgently transferred to [facility] to undergopercutaneous intervention. The patient underwent [...] 2:40 p.m.Discharge cardiac rehab phase 1: At [facility].3. Patient has been counselled on Smoking Cessation [...] personal documentation from me. Date Dict: 11/11/2017/05:08 P/Mulu Chen Trans: 11/12/2017 02:35 A/Smiley_JN:[id number] Normal [facility] CBC COMPLETE BLOOD COUNTon 0 11-11-2017 Erythrocyte distribution width Auto Ratio (RBC) 12.2 % Normal 11.5-15.0 [facility] Comment on above: Order Comment: Unkno wn Performed By: #### 5 0608 ####[facility] Erythrocytes (RBC) 4.18 10*6/uL Low 4.20-5.70 [facility] Comment on above: Order Comment: Unkno wn Performed By: #### 5 0608 ####[facility] Hematocrit (HCT) 35.5 % Low 39.0-50.0 [facility] Comment on above: Order Comment: Unkno wn Performed By: #### 5 0608 ####[place] [id number] Hemoglobin mass conc (Bld) 12.5 g/dL Low 13.0-17.0 [facility] Comment on above: Order Comment: Unkno wn Performed By: #### 5 0608 ####[facility] MCH 29.9 pg Normal 27.0-33.0 [facility] Comment on above: Order Comment: Unkno wn Performed By: #### 5 0608 ####[facility] MCHC mass conc (RBC) 35.2 g/dL High 32.0-35.0 [facility] Comment on above: Order Comment: Unkno wn Performed By: #### 5 0608 ####[facility] MCV 84.9 fL Normal 82.0-98.0 [facility] Comment on above: Order Comment: Unkno wn Performed By: #### 5 0608 ####[facility] NRBC 0 % Normal 0-0 [facility] Comment on above: Order Comment: Unkno wn Performed By: #### 5 0608 ####[facility] PLAT CNT 240 10*3/uL Normal 150-400 [facility] Comment on above: Order Comment: Unkno wn Performed By: #### 5 0608 ####[facility] WBC (Leukocytes) 9.79 10*3/uL Normal 4.00-10.60 [facility] Comment on above: Order Comment: Unkno wn Performed By: #### 5 0608 ####[facility] [facility].[address] COMP METABOLIC PANELon 11-11 Alanine aminotransferase (ALT) 18 U/L Normal 7-52 [facility] Comment on above: Order Comment: Yes: Add to Previous draw if able Performed By: #### 4 6413, 22970, 67302, 61529, 34022 ####[facility] Albumin 3.7 g/dL Normal 3.5-5.7 [facility] Comment on above: Order Comment: Yes: Add to Previous draw if able Performed By: #### 4 6413, 57229, 81769, 57295, 35705 ####[facility] [place] [address], [place] ALKALINE PHOSPH 44 IU/L Normal 34-104 [facility] Comment on above: Order Comment: Yes: Add to Previous draw if able Performed By: #### 4 6413, 92149, 98859, 34317, 84976 ####[facility] [place] [address], [facility] Aspartate aminotransferase (AST) 32 U/L Normal 13-39 [facility] Comment on above: Order Comment: Yes: Add to Previous draw if able Performed By: #### 4 6413, 36855, 49089, 73759, 11814 ####[facility] [place] [address], [facility] Bilirubin (total) 0.6 mg/dL Normal 0.3-1.0 [facility] Comment on above: Order Comment: Yes: Add to Previous draw if able Performed By: #### 4 6413, 30077, 70034, 11160, 28164 ####[facility] [place] [address], [place] Calcium 8.8 mg/dL Normal 8.6-10.3 [facility] Comment on above: Order Comment: Yes: Add to Previous draw if able Performed By: #### 4 6413, 29569, 24326, 86363, 68547 ####[facility] [place] [address], [place] Chloride 106 mmol/L Normal 98-107 [facility] Comment on above: Order Comment: Yes: Add to Previous draw if able Performed By: #### 4 6413, 39717, 59886, 61648, 98016 ####[facility] [place] [address], [place] CO2 26 mmol/L Normal 21-31 [facility] Comment on above: Order Comment: Yes: Add to Previous draw if able Performed By: #### 4 6413, 16800, 94629, 91589, 10312 ####[facility] Creatinine 0.70 mg/dL Normal 0.70-1.30 [facility] Comment on above: Order Comment: Yes: Add to Previous draw if able Performed By: #### 4 6413, 42960, 53224, 14752, 96579 ####[facility] [place] [address], [facility] eGFR (black) mL/min/{1.73_m2} Normal >60 [facility] Comment on above: Order Comment: Yes: Add to Previous draw if able Performed By: #### 4 6413, 46624, 38508, 25815, 99708 ####[facility] eGFR (non-black) mL/min/{1.73_m2} Normal >60 [facility] Comment on above: Order Comment: Yes: Add to Previous draw if able Performed By: #### 4 6413, 32429, 65743, 63886, 14686 ####[facility] [place] [address], [facility] Glucose mass conc 90 mg/dL Normal 70-100 [facility] Comment on above: Order Comment: Yes: Add to Previous draw if able Performed By: #### 4 6413, 11775, 64622, 15507, 42428 ####[facility] [place] [address], [facility] Potassium molar conc 3.5 mmol/L Normal 3.5-5.1 [facility] Comment on above: Order Comment: Yes: Add to Previous draw if able Performed By: #### 4 6413, 17279, 79318, 54985, 45223 ####[facility] [place] [address], [facility] Protein 6.2 g/dL Normal 6.0-8.3 [facility] Comment on above: Order Comment: Yes: Add to Previous draw if able Performed By: #### 4 6413, 79389, 43975, 45960, 54236 ####[facility] Sodium 134 mmol/L Low 136-145 [facility] Comment on above: Order Comment: Yes: Add to Previous draw if able Performed By: #### 4 6413, 64959, 48557, 04047, 64359 ####[facility] Urea nitrogen 12 mg/dL Normal 7-25 [facility] Comment on above: Order Comment: Yes: Add to Previous draw if able Performed By: #### 4 6413, 64963, 34072, 35055, 74280 ####[facility] MAGNESIUM BLOODon 11-11-2017 Magnesium 1.8 mg/dL Low 1.9-2.7 [facility] Comment on above: Order Comment: Yes: Add to Previous draw if able Performed By: #### 4 6413, 78241, 52533, 11380, 11580 ####[facility] [place] [address], [facility] PHOSPHORUS BLOODon 8 Phosphate 2.7 mg/dL Normal 2.5-5.0 [facility] Comment on above: Order Comment: Yes: Add to Previous draw if able Performed By: #### 4 6413, 42279, 98011, 40942, 10872 ####[facility] [place] [address], [facility] TROPONIN-Ion 11-11-2017 Troponin I.cardiac mass conc 1.65 ng/mL Critically high 0.00-0.04 [facility] Comment on above: Order Comment: Yes: Add to Previous draw if able Result Comment: REFE RENCE RANGES: 0.00 - 0.04 ng/ml NORMAL 0.05 - 0.50 ng/ml INDETERMINATE > 0.50 ng/ml CONSISTENT WITH AN M.I. Performed By: #### 4 6413, 89605, 65285, 03858, 97151 ####[facility] CBC COMPLETE BLOOD COUNTon 0 11-10-2017 Erythrocyte distribution width Auto Ratio (RBC) 12.2 % Normal 11.5-15.0 [facility] Comment on above: Order Comment: No: D o not add to previous draw Performed By: #### 5 0608 ####[facility] Erythrocytes (RBC) 4.15 10*6/uL Low 4.20-5.70 [facility] Comment on above: Order Comment: No: D o not add to previous draw Performed By: #### 5 0608 ####[facility] Hematocrit (HCT) 35.8 % Low 39.0-50.0 [facility] Comment on above: Order Comment: No: D o not add to previous draw Performed By: #### 5 0608 ####[place] [id number] Hemoglobin mass conc (Bld) 12.8 g/dL Low 13.0-17.0 [facility] Comment on above: Order Comment: No: D o not add to previous draw Performed By: #### 5 0608 ####[facility] MCH 30.8 pg Normal 27.0-33.0 [facility] Comment on above: Order Comment: No: D o not add to previous draw Performed By: #### 5 0608 ####[facility] [place] [address] MCHC mass conc (RBC) 35.8 g/dL High 32.0-35.0 [facility] Comment on above: Order Comment: No: D o not add to previous draw Performed By: #### 5 0608 ####[facility] MCV 86.3 fL Normal 82.0-98.0 [facility] Comment on above: Order Comment: No: D o not add to previous draw Performed By: #### 5 0608 ####[facility] NRBC 0 % Normal 0-0 [facility] Comment on above: Order Comment: No: D o not add to previous draw Performed By: #### 5 0608 ####[facility] PLAT CNT 253 10*3/uL Normal 150-400 [facility] Comment on above: Order Comment: No: D o not add to previous draw Performed By: #### 5 0608 ####[facility] WBC (Leukocytes) 8.74 10*3/uL Normal 4.00-10.60 [facility] Comment on above: Order Comment: No: D o not add to previous draw Performed By: #### 5 0608 ####[facility]3000 [facility].[address] COMP METABOLIC PANELon 11-10 Alanine aminotransferase (ALT) 16 U/L Normal 7-52 [facility] Comment on above: Order Comment: No: D o not add to previous draw Performed By: #### 4 6413, 75339, 61602, 68326, 93307 ####[facility] Albumin 3.8 g/dL Normal 3.5-5.7 [facility] Comment on above: Order Comment: No: D o not add to previous draw Performed By: #### 4 6413, 00236, 67921, 00427, 74688 ####[facility] [place] [address], [facility] ALKALINE PHOSPH 58 IU/L Normal 34-104 [facility] Comment on above: Order Comment: No: D o not add to previous draw Performed By: #### 4 6413, 20021, 18157, 23626, 89172 ####[facility] [place] [address], [facility] Aspartate aminotransferase (AST) 30 U/L Normal 13-39 [facility] Comment on above: Order Comment: No: D o not add to previous draw Performed By: #### 4 6413, 60668, 74229, 01224, 63996 ####[facility] [place] [address], [facility] Bilirubin (total) 0.4 mg/dL Normal 0.3-1.0 [facility] Comment on above: Order Comment: No: D o not add to previous draw Performed By: #### 4 6413, 34300, 41926, 80702, 08276 ####[facility] [place] [address], [facility] Calcium 8.8 mg/dL Normal 8.6-10.3 [facility] Comment on above: Order Comment: No: D o not add to previous draw Performed By: #### 4 6413, 51625, 01373, 96448, 94677 ####[facility] [place] [address], [place] Chloride 106 mmol/L Normal 98-107 [facility] Comment on above: Order Comment: No: D o not add to previous draw Performed By: #### 4 6413, 41712, 57130, 72880, 82305 ####[facility] [place] [address], [place] CO2 23 mmol/L Normal 21-31 [facility] Comment on above: Order Comment: No: D o not add to previous draw Performed By: #### 4 6413, 64479, 84600, 36768, 17127 ####[facility] [place] [address], [facility] Creatinine 1.03 mg/dL Normal 0.70-1.30 [facility] Comment on above: Order Comment: No: D o not add to previous draw Performed By: #### 4 6413, 26601, 15687, 50890, 57238 ####[facility] [place] [address], [facility] eGFR (black) mL/min/{1.73_m2} Normal >60 [facility] Comment on above: Order Comment: No: D o not add to previous draw Performed By: #### 4 6413, 47102, 89058, 51659, 44751 ####[facility] [place] [address], [facility] eGFR (non-black) mL/min/{1.73_m2} Normal >60 Th e [facility] Comment on above: Order Comment: No: D o not add to previous draw Performed By: #### 4 6413, 33439, 23804, 11651, 43465 ####[facility] [place] [address], [facility] Glucose mass conc 98 mg/dL Normal 70-100 [facility] Comment on above: Order Comment: No: D o not add to previous draw Performed By: #### 4 6413, 81557, 94958, 65397, 35315 ####[facility] [place] [address], [facility] Potassium molar conc 4.0 mmol/L Normal 3.5-5.1 [facility] Comment on above: Order Comment: No: D o not add to previous draw Performed By: #### 4 6413, 20994, 23357, 98153, 88231 ####[facility], [place] [address] [place] [address] Protein 6.3 g/dL Normal 6.0-8.3 [facility] Comment on above: Order Comment: No: D o not add to previous draw Performed By: #### 4 6413, 65024, 30901, 39925, 79795 ####[facility]3000 [facility].[address] Sodium 135 mmol/L Low 136-145 [facility] Comment on above: Order Comment: No: D o not add to previous draw Performed By: #### 4 6413, 09616, 25080, 23637, 92945 ####[facility]3000 [facility].[address] Urea nitrogen 16 mg/dL Normal 7-25 [facility] Comment on above: Order Comment: No: D o not add to previous draw Performed By: #### 4 6413, 08840, 59573, 85786, 65015 ####[facility]3000 [facility].[address] Cardiovascular Lab Reporton 11-10-2017 Cardiovascular Lab Report [facility] Patient Name: Ronnell Peres [facility] MR #: [id number] Physician: Michelle Mohan M.D.Medicine Service Date: 11/10/2017Division of Birthdate: 4Cardiology Room #: 3AB [id number]Services[facility] [place] [id number] Fax Cardiovascular Laboratory ReportINDICATION: The patient is a 62-year-old man, [facility] 1 hour prior topresentation. His EKG showed ST elevations in the lateral leads with STdepressions in the inferior leads. He was rushed by [facility] to [facility] for emergency coronary intervention. He was given [...] theprocedure. The patient was brought to our senior laboratory technician. The right groin areawas prepped and draped in usual fashion. Using micropuncture technique,the right common femoral artery was accessed and the access was upsized toa 6-[place]izen [place] x 11 cm sheath. ACT was measured and additional heparin wasgiven and therapeutic ACT confirmed during the rest of the procedure.A 6-[place]izen [place] XB 3.5 guiding catheter was advanced and used to engage the leftmain coronary ostium. Angiography of the left coronary system wasperformed in multiple views. A [place] wire was advanced into the distalfirst diagonal branch. Balloon angioplasty was performed using an Emerge2.5 x 12 mm balloon inflated at 6 atmospheres in the first diagonal branch.Angiography revealed suboptimal results. This was treated using deploymentof a Synergy 2.5 x 16 mm drug-eluting stent deployed at 11 atmospheres andpost dilated using NC Quantum [place] 2.5 x 12 mm noncompliant ballooninflated at 18 atmospheres throughout the length of the stent repeatedly.Angiography after administration of intracoronary nitroglycerin showedexcellent result with reduction of the stenosis in the diagonal branch to0%. No evidence of dissection or perforation and WYATT-3 flow in the leftcoronary system. The guiding catheter was removed. A 6-Citizen [place] OY7zhocvbmpma catheter was advanced and used to engage the right coronaryostium. Angiography of the right coronary artery was performed in multipleviews. The catheter was retracted to the aortic root and non-selectiveinjection was performed in the right coronary cusp. The catheter wasremoved. Limited right femoral angiography was performed in multipleviews. The right femoral arteriotomy was managed with a 7-IevdryNusow-Zoed device with good hemostasis. The patient was [...] that major diagonal branch has a mid % thrombotic stenosis. This was reduced to 0% [...] 11/10/2017/02:41 A/Michelle Pulliam M.D.Date Trans: 11/10/2017 04:12 A/[id number] Normal [facility] HEMOGLOBIN A1Con 11-10-2017 Glucose mass conc 100 mg/dL Normal 70-126 [facility] Comment on above: Order Comment: Yes: Add to Previous draw if able Performed By: #### 4 6447 ####[facility] Hemoglobin A1c/Hemoglobin.to noe mass fraction (Bld) 5.1 % Normal 4.0-6.0 [facility] Comment on above: Order Comment: Yes: Add to Previous draw if able Performed By: #### 4 6447 ####[facility] History and Physicalon 11-10 History and Physical [id number] Admitted: 11/10/2017 Date of : 1955 Attending Physician: Mansi Brooks M.D. Room #: 3AB [id number] Discharge Date: HISTORY AND PHYSICALCHIEF COMPLAINT: Chest pain.HISTORY OF PRESENT ILLNESS: The patient is a 62-year-old gentleman with apast medical history of kidney stones, who presented to the ER at [facility] with severe midsternal chest pain that started 1-hour prior toarrival. The patient was asleep and the pain woke him up from the sleep.The patient also had diaphoresis. He also felt short of breath and dizzy.He denied any syncopal episodes. He also complained of feeling weak. Thepatient had EKG done at the [facility] ER and it showed ST elevationin lead I and aVL and V1. The patient's chest x-ray was negative. Thepatient was life flighted to the [facility] for a stat cardiac cath. before [...] Denies any druguse. 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 He lives with his .FAMILY HISTORY: Positive for liver cirrhosis in his father, who fromit and MS in his mother, who is still alive.REVIEW [...] affect normal.LABS: We only had CBC from [facility] and it shows white blood cells 9.3,hemoglobin 13.7, hematocrit 37.7 and platelets 281. EKG in the [facility] ER shows ST elevation in lead I, aVL and V1 and ST depression inlead II and aVF. Chest x-ray was done as well and did not show anyinfiltrates. The labs here at [facility] are still pending.ASSESSMENT: ST elevation myocardial infarction, coronary artery disease,heavy smoker, alcohol abuse and history of kidney stones.PLAN: The patient is admitted to ICU for post cardiac catheterizationcare. Cardiology follows. Per their recommendations, the patient will bestarted on aspirin 81 mg daily and Plavix 75 mg daily. He already got 600mg bolus of Plavix in the senior laboratory technician. The patient will also be takingmetoprolol 25 [...] 02:27 P ____Mansi Brooks M.D.Date Dict: 11/10/2017/04:17 A/Mansi Brooks M.D.Date Trans: 11/10/2017 05:07 Elizabeth/Smiley_JN:[id number] Normal [facility] LIPID PROFILEon 11-10-2017 Cholesterol 201 mg/dL High 120-200 [facility] Comment on above: Order Comment: Yes: Add to Previous draw if able Result Comment: CHOL ESTEROL REFERENCE RANGE:20 YEARS AND OLDER CARDIOVASCULAR RISKLess than 200 mg/dl Low Zopa642 to 239 mg/dl Borderline Vwuu525 mg/dl and greater High Risk Performed By: #### 4 6413, 00215, 14343, 00874, 26966 ####[facility] Cholesterol to HDL Ratio 4.9 {ratio} High .0-4.5 [facility] Comment on above: Order Comment: Yes: Add to Previous draw if able Performed By: #### 4 6413, 95393, 55962, 49733, 08431 ####[facility] [place] [address], [facility] HDL Cholesterol 41 mg/dL Normal 23-92 [facility] Comment on above: Order Comment: Yes: Add to Previous draw if able Result Comment: Slig ht variation in normal range could be due to gender and/or age.HDL CHOLESTEROL REFERENCE RANGE:20 years and older Cardiovascular Risk> or =60 mg/dL Wagpmpiyn26 TO 59 mg/dL Low Risk<40 mg/dL High Risk Performed By: #### 4 6413, 46453, 73102, 81897, 16543 ####[facility] LDL Cholesterol 12 mg/dL Normal 0-130 [facility] Comment on above: Order Comment: Yes: Add to Previous draw if able Result Comment: LDL IS A CALCULATIONLDL IS ONLY VALID IF THE TRIG IS LESS THAN 400. Performed By: #### 4 6413, 84205, 40176, 58918, 53782 ####[facility] [place] [address], [facility] NON-HDL CHOLESTEROL 160 mg/dL Normal [facility] Comment on above: Order Comment: Yes: Add to Previous draw if able Performed By: #### 4 6413, 41042, 94858, 43791, 11383 ####[facility] [place] [address], [facility] Triglyceride 740 mg/dL High 40-149 [facility] Comment on above: Order Comment: Yes: Add to Previous draw if able Result Comment: TRIG LYCERIDE REFERENCE RANGE:20 YEARS AND OLDER CARDIOVASCULAR RISKLESS THAN 150 mg/dl LOW WEKA519 TO 199 mg/dl BORDERLINE LZIQ101 mg/dl AND GREATER HIGH RISK Performed By: #### 4 6413, 37204, 98635, 98462, 24320 ####[facility] [place] [address], [facility] VLDL CHOL 148 mg/dL High 0-40 [facility] Comment on above: Order Comment: Yes: Add to Previous draw if able Performed By: #### 4 6413, 36266, 23638, 39517, 54502 ####[facility] MAGNESIUM BLOODon 11-10-2017 Magnesium 2.0 mg/dL Normal 1.9-2.7 [facility] Comment on above: Order Comment: No: D o not add to previous draw Performed By: #### 4 6413, 16951, 07045, 08651, 79903 ####[facility] PHOSPHORUS BLOODon 8 Phosphate 3.5 mg/dL Normal 2.5-5.0 [facility] Comment on above: Order Comment: No: D o not add to previous draw Performed By: #### 4 6413, 10503, 47148, 24831, 99451 ####[facility] PROTHROMBIN TIMEon 8 INR Coag RelTime (PPP) 1.07 {INR} Normal 0.91-1.16 [facility] Comment on above: Order Comment: Yes: Add [...] OF ACTION, CLINICALEFFECTIVENESS, AND OPTIMAL THERAPEUTIC RANGE. [id number];108:[id number]-246S. Performed By: #### 5 6101 ####[facility] Prothrombin time (PT) Coag time (PPP) 13.9 s Normal 12.3-14.8 [facility] Comment on above: Order Comment: Yes: Add to Previous draw if able Result Comment: ALL RESULTS MUST BE INTERPRETED WITH RESPECT TO BLOOD DRAWING ARTIFACTOR DILUTION ERROR OF ANTICOAGULANT AT THE TIME OF SAMPLING. Performed By: #### 5 6101 ####[facility] TROPONIN-Ion 11-10-2017 Troponin I.cardiac mass conc 2.25 ng/mL Critically high 0.00-0.04 [facility] Comment on above: Result Comment: M-CR ITICAL RESULT(S) REVIEWED, CALLED TO AND READ BACK BY SANTOS RN @ 1122REFERENCE RANGES: 0.00 - 0.04 ng/ml NORMAL 0.05 - 0.50 ng/ml INDETERMINATE > 0.50 ng/ml CONSISTENT WITH AN M.I. Performed By: #### 4 6413, 05130, 94786, 73081, 98704 ####[facility]3000 [facility].[address] Vital Signs Date Time Vital Sign Value Performing Clinician Facility 03-30-2024 09: Body height 167.6 cm Portillo Ludwig MD Work Phone: [facility] 03-30-2024 09:050 Body mass index (BMI) [Ratio] 23.89 kg/m2 Portillo Ludwig MD Work Phone: [facility] 03-30-2024 09:050 Body weight 67.13 kg Portillo Ludwig MD Work Phone: [facility] 03-30-2024 09:11-0500 Diastolic blood pressure 77 mm[Hg] Portillo Ludwig MD Work Phone: [facility] 03-30-2024 09:11-0500 Systolic blood pressure 122 mm[Hg] Portillo Ludwig MD Work Phone: [facility] 07-17-2023 14:48-0500 Blood Pressure Location Aaron NILL [facility] 07-17-2023 14:48-0500 Diastolic blood pressure 64 mm[Hg] Aaron NILL [facility] 07-17-2023 14:48-0500 Heart rate 64 /min Aaron NILL [facility] 07-17-2023 14:48-0500 Respiratory rate 16 /min Aaron NILL [facility] 07-17-2023 14:48-0500 Systolic blood pressure 116 mm[Hg] Aaron NILL [facility] 06-17-2023 10:53-0500 Body height 167.6 cm Portillo Ludwig MD Work Phone: [facility] 06-17-2023 10:53-0500 Body mass index (BMI) [Ratio] 23.89 kg/m2 Portillo Lduwig MD Work Phone: [facility] 06-17-2023 10:53-0500 Body weight 67.13 kg Portillo Ludwig MD Work Phone: [facility] 06-17-2023 10:53-0500 Diastolic blood pressure 92 mm[Hg] Portillo Ludwig MD Work Phone: [facility] 06-17-2023 10:53-0500 Systolic blood pressure 145 mm[Hg] Portillo Ludwig MD Work Phone: [facility] 02-19-2023 13:16-0400 Heart rate 76 /min Portillo Ludwig [facility] 02-19-2023 13:16-0400 SaO2% (BldA) [Mass fraction] 94 % Portillo Timmis [facility] 02-19-2023 13:16-0400 Respiratory rate 16 /min Portillo Timmis [facility] 02-19-2023 13:15-0400 Blood Pressure Location Portillo Timmis [facility] 02-19-2023 13:15-0400 Diastolic blood pressure 68 mm[Hg] Portillo Timmis [facility] 02-19-2023 13:15-0400 Mean blood pressure 82 mm[Hg] Portillo Timmis [facility] 02-19-2023 13:15-0400 Systolic blood pressure 110 mm[Hg] Portillo Timmis [facility] 02-19-2023 13:15-0400 Body temperature 97.7 [degF] Portillo Timmis [facility] 02-19-2023 12:32-0400 Heart rate 69 /min Portillo Timmis [facility] 02-19-2023 12:32-0400 SaO2% (BldA) [Mass fraction] 95 % Portillo Timmis [facility] 02-19-2023 12:31-0400 Diastolic blood pressure 69 mm[Hg] Portillo Timmis [facility] 02-19-2023 12:31-0400 Mean blood pressure 82 mm[Hg] Portillo Timmis [facility] 02-19-2023 12:31-0400 Systolic blood pressure 108 mm[Hg] Portillo Timmis [facility] 02-19-2023 12:31-0400 Respiratory rate 14 /min Portillo Timmis [facility] 02-19-2023 12:25-0400 Blood Pressure Location Portillo Timmis [facility] 02-19-2023 12:25-0400 Body temperature 97.88 [degF] Portillo Timmis [facility] 02-19-2023 12:25-0400 Diastolic blood pressure 75 mm[Hg] Portillo Timmis [facility] 02-19-2023 12:25-0400 Heart rate 72 /min Portillo Timmis [facility] 02-19-2023 12:25-0400 Mean blood pressure 85 mm[Hg] Portillo Timmis [facility] 02-19-2023 12:25-0400 Respiratory rate 22 /min Portillo Timmis [facility] 02-19-2023 12:25-0400 SaO2% (BldA) [Mass fraction] 95 % Portillo Timmis [facility] 02-19-2023 12:25-0400 Systolic blood pressure 106 mm[Hg] Portillo Timmis [facility] 02-19-2023 12:10-0400 Blood Pressure Location Portillo Timmis [facility] 02-19-2023 12:10-0400 Mean blood pressure 90 mm[Hg] Portilol Timmis [facility] 02-19-2023 12:10-0400 Respiratory rate 24 /min Portillo Timmis [facility] 02-19-2023 12:05-0400 Mean blood pressure 86 mm[Hg] Portillo Timmis [facility] 02-19-2023 12:05-0400 Respiratory rate 25 /min Portillo Timmis [facility] 02-19-2023 11:58-0400 Body temperature 98.06 [degF] Portillo Timmis [facility] 02-19-2023 11:55-0400 FIO2 100 % Portillo Timmis [facility] 02-19-2023 11:55-0400 Respiratory rate 13 /min Portillo Timmis [facility] 02-19-2023 11:50-0400 FIO2 100 % Portillo Timmis [facility] 02-19-2023 11:45-0400 FIO2 60 % Portillo Timmis [facility] 02-19-2023 09:13-0400 Heart rate 80 /min Portillo Timmis [facility] 02-19-2023 09:03-0400 Mean blood pressure 102 mm[Hg] Portillo Timmis [facility] 02-19-2023 09:01-0400 Body temperature 97.16 [degF] Portillo Timmis [facility] 01-25-2023 11:09-0400 Body temperature 97.59 [degF] Dylan Zaidi MD Work Phone: [facility] [employer] [facility] 01-25-2023 11:09-0400 Diastolic blood pressure 91 mm[Hg] Dylan Zaidi MD Work Phone: [facility] [employer] 01-25-2023 11:09-0400 Heart rate 70 /min Dylan Zaidi MD Work Phone: [facility] 01-25-2023 11:09-0400 Respiratory rate 16 /min Dylan Zaidi MD Work Phone: [facility] 01-25-2023 11:09-0400 SaO2% (BldA) [Mass fraction] 96 % Dylan Zaidi MD Work Phone: [facility] 01-25-2023 11:09-0400 Systolic blood pressure 155 mm[Hg] Dylan Zaidi MD Work Phone: [facility] 10-22-2022 14:01-0400 Blood Pressure Location Aaron NILL [facility] 10-22-2022 14:01-0400 Diastolic blood pressure 64 mm[Hg] Aaron NILL [facility] 10-22-2022 14:01-0400 Heart rate 80 /min Aaron NILL [facility] 10-22-2022 14:01-0400 Respiratory rate 16 /min Aaron NILL [facility] 10-22-2022 14:01-0400 Systolic blood pressure 116 mm[Hg] Aaron NILL [facility] 01-21-2022 15:43-0400 Blood Pressure Location Aaron NILL [facility] 01-21-2022 15:43-0400 Diastolic blood pressure 88 mm[Hg] Aaron NILL [facility] 01-21-2022 15:43-0400 Heart rate 72 /min Aaron NILL [facility] 01-21-2022 15:43-0400 Respiratory rate 16 /min Aaron NILL [facility] 01-21-2022 15:43-0400 Systolic blood pressure 132 mm[Hg] Aaron NILL [facility] 11-08-2021 14:46-0400 Blood Pressure Location Aaron NILL [facility] 11-08-2021 14:46-0400 Diastolic blood pressure 86 mm[Hg] Aaron TRISTANL [facility] 11-08-2021 14:46-0400 Heart rate 76 /min Aaron TRISTANL [facility] 11-08-2021 14:46-0400 Respiratory rate 16 /min Aaron NILL [facility] 11-08-2021 14:46-0400 Systolic blood pressure 142 mm[Hg] Aaron NILL [facility] 07-11-2021 11:45-0500 Heart rate 78 /min David Robbins [facility] [employer] 07-11-2021 11:45-0500 Respiratory rate 16 /min Davidjoseph Robbins [facility] [employer] 07-11-2021 11:40-0500 Diastolic blood pressure 76 mm[Hg] David Roimelda [facility] 07-11-2021 11:40-0500 SaO2% (BldA) [Mass fraction] 95 % Davidjoseph Robbins [facility] 07-11-2021 11:40-0500 Systolic blood pressure 125 mm[Hg] Davidjoseph Robbins [facility] 07-11-2021 07:29-0500 Body temperature 97.59 [degF] Davidjoseph Robbins [facility] 07-10-2021 08:53-0500 Body height 167.6 cm [facility]ff [facility] 07-10-2021 07:08-0500 Body temperature 97.59 [degF] Norbert Neff MD Work Phone: [facility] [employer] 07-10-2021 07:08-0500 Diastolic blood pressure 78 mm[Hg] Norbert Neff MD Work Phone: [facility] [employer] 07-10-2021 07:08-0500 Heart rate 65 /min Norbert Neff MD Work Phone: [employer] 07-10-2021 07:08-0500 Respiratory rate 20 /min Norbert Neff MD Work Phone: [facility] 07-10-2021 07:08-0500 SaO2% (BldA) [Mass fraction] 94 % Norbert Neff MD Work Phone: [facility] 07-10-2021 07:08-0500 Systolic blood pressure 115 mm[Hg] Norbert Neff MD Work Phone: [facility] 07-05-2021 11:40-0500 Body mass index (BMI) [Ratio] 21.79 kg/m2 Norbert Neff MD Work Phone: [facility] 07-05-2021 11:40-0500 Body weight 61.24 kg Norbert Neff MD Work Phone: [employer] Encounters Encounter Date Encounter Type Care Provider Facility Start: 03-30-2024 End: 03-30-2024 Bamboo flowsheet Portillo Ludwig MD Work Phone: [facility] Start: 03-30-2024 End: 03-30-2024 Bamboo flowsheet Portillo Ludwig MD Work Phone: [facility] Start: 03-30-2024 End: 03-30-2024 Office outpatient visit 25 minutes Portillo Ludwig MD Work Phone: [facility] Comment on above: Sensorineural hearin g loss (SNHL) of left ear with restricted hearing of right ear (Primary Dx) Start: 03-30-2024 End: 03-30-2024 ambulatory PORTILLO LUDWIG Not Available Start: 12-07-2023 End: 12-07-2023 ambulatory [facility] Start: 09-23-2023 End: 09-24-2023 ambulatory Aaron KELSEY Facility:[facility] Start: 09-23-2023 End: 09-23-2023 Patient encounter procedure Aaron R AZALEAL [facility] Start: 09-09-2023 End: 09-10-2023 ambulatory Aaron R AZALEAL Facility: [facility] Start: 09-09-2023 End: 09-09-2023 Patient encounter procedure Aaron R AZALEAL [facility] Start: 09-02-2023 End: 09-02-2023 ambulatory Aaron R Nill Facility:[facility] Start: 09-02-2023 End: 09-03-2023 ambulatory Aaron R LOW [facility] Work Phone: Start: 09-02-2023 End: 09-02-2023 Departed Referred MD Aaron Kelsey Work Phone: [facility] Start: 08-24-2023 End: 08-27-2023 ambulatory [facility]YL[facility] Snell [facility] Start: 07-17-2023 End: 07-18-2023 ambulatory Aaron R LOW Facility: [facility] Start: 07-17-2023 End: 07-17-2023 Patient encounter procedure Aaron R AZALEAL General [facility] Start: 07-03-2023 End: 07-03-2023 ambulatory [facility] Start: 07-03-2023 End: 07-03-2023 Encounter for other preprocedural examination [facility] Start: 06-17-2023 End: 06-17-2023 Office outpatient visit 15 minutes Portillo Ludwig MD Work Phone: [facility] Comment on above: 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); Left-sided tinnitus Start: 06-17-2023 End: 06-17-2023 ambulatory PORTILLO H TIMMIS Not Available Start: 06-10-2023 End: 06-10-2023 ambulatory GUILLE ABRAHAM Not Available Start: 04-08-2023 End: 04-08-2023 ambulatory PORTILLO H TIMMIS Not Available Start: 02-19-2023 End: 02-19-2023 ambulatory Portillo H Timmis Facility:[facility] Start: 02-19-2023 End: 02-19-2023 Admission to same day surgery center Portillo Ludwig [facility] Start: 02-17-2023 End: 02-18-2023 ambulatory Portillo Gtz Timmis Facility:[facility] Start: 01-30-2023 End: 01-30-2023 ambulatory [facility] Start: 01-25-2023 End: 01-25-2023 Emergency department patient visit DYLAN Marcelino [facility] Start: 01-25-2023 End: 01-25-2023 Emergency department patient visit Dylan Zaidi MD Work Phone: [facility] Comment on above: Intermittent chest p ain (Primary Dx); History of epistaxis Start: 12-31-2022 End: 12-31-2022 ambulatory [facility] Start: 10-22-2022 End: 10-23-2022 ambulatory Aaron R NILL Facility: [facility] Start: 10-22-2022 End: 10-22-2022 Patient encounter procedure Aaron R NILL General Surgery [facility] Start: 02-20-2022 End: 02-22-2022 Subsequent hospital visit by physician Dylan Zaidi MD Work Phone: [facility] Start: 01-21-2022 End: 01-21-2022 Patient encounter procedure Aaron R NILL General Surgery [facility] Start: 12-18-2021 End: 12-19-2021 ambulatory CAM FORREST Facility:[facility] Start: 12-16-2021 End: 12-17-2021 ambulatory CAM FORREST Facility:[facility] Start: 11-08-2021 End: 11-08-2021 Patient encounter procedure Aaron White LOW General Surgery [facility] Start: 08-20-2021 End: 08-22-2021 Subsequent hospital visit by physician Svetlana Austin Dr Room 4 [facility] Radiology Comment on above: Ureteral stone Start: 07-29-2021 End: 07-31-2021 Subsequent hospital visit by physician Svetlana Cat Scan Room [facility] Comment on above: Renal colic; LLQ pain; Incomplete bladder emptying Start: 07-18-2021 End: 07-18-[address] SUSAN BOYLE Facility:[facility] Start: 07-16-2021 End: 07-16-2021 Subsequent hospital visit by physician Dylan Zaidi MD Work Phone: [facility] Comment on above: Ureteral stone; Nausea; Decreased appetite Start: 07-11-2021 End: 07-11-2021 Emergency department patient visit David Robbins [facility] ED Comment on above: Left lower quadrant abdominal pain (Primary Dx); Urinary tract infection with hematuria, site unspecified; Ureteral calculus Start: 07-09-2021 End: 07-10-2021 Subsequent hospital visit by physician Norbert Neff MD Work Phone: [facility] Start: 07-05-2021 End: 07-09-2021 Patient encounter status [facility] Schedule [facility] Start: 07-05-2021 End: 07-09-2021 Subsequent hospital visit by physician Svetlana Nietoid19 Pat Screening Schedule [facility] Comment on above: Preop testing Start: 06-25-2021 End: 06-26-2021 ambulatory HARISH Emanuel Facility:[facility] Start: 06-22-2021 End: 06-23-2021 ambulatory WARNER TRIPP Facility:[facility] Start: 05-23-2021 End: 05-24-2021 ambulatory NELLY WALTERS Facility:[facility] Start: 04-19-2021 End: 04-19-2021 ambulatory NELLY WALTERS Facility:[facility] Start: 04-13-2021 End: 04-13-[address] DYLAN ZAIDI Facility:[facility] Start: 01-02-2021 ambulatory YASMINE CROWELL Facility:[facility] Start: 11-17-2017 End: 11-18-2017 Patient encounter DEFAULT PHYSICIAN Facility:[facility] Start: 11-10-2017 End: 11-11-2017 Evaluation and management of inpatient YASMINE AMARAL Facility:[facility] Procedures Date Procedure Procedure Detail Performing Clinician Start: 09-02-2023 Repair of left ingui nal hernia Aaron NILL Start: 02-19-2023 Nasal cautery Portillo Ti mmis Start: 01-25-2023 Comprehensive metabo lic panel Jermain PEREZ-C Work Phone: Start: 01-25-2023 Ecg routine ecg w/le ast 12 lds w/i&r Jermain Allen PA-C Work Phone: Start: 01-25-2023 Radiologic exam ches t single view Jermain Allen PA-C Work Phone: Start: 08-20-2021 Radiologic exam abdo men 1 view Dolly Harrell Parsell SENIOR LABORATORY TECHNICIAN - [employer] [facility]NY Work Phone: Start: 07-29-2021 Ct abdomen & pelvis w/o contrast material Dolly W Parsell SENIOR LABORATORY TECHNICIAN - [employer]NY Work Phone: Start: 07-29-2021 Basic metabolic pane l calcium total Dolly W Parsell SENIOR LABORATORY TECHNICIAN - [employer]NY Work Phone: Start: 07-16-2021 Basic metabolic pane l calcium total Dolly W Parsell SENIOR LABORATORY TECHNICIAN - [employer]ANNY Work Phone: Start: 07-11-2021 Ct abdomen & pelvis w/o contrast material David Robbins DO Start: 07-11-2021 Urinalysis microscopic only David Robbins DO Start: 07-11-2021 Urnls dip stick/tabl et rgnt auto w/o microscopy David Robbins DO Start: 07-11-2021 BASIC METABOLIC PANE L W/ REFLEX TO MG FOR LOW K David Robbins DO Start: 07-11-2021 Blood count complete auto&auto difrntl wbc David Robbins DO Start: 07-10-2021 Basic metabolic pane l [...] Start: 02-16-2017 Cystoscope, device (physical object) Aaron KELSEY Insertion of renal a rtery stent Aaron KELSEY Lithotripsy Aaron KELSEY Nasal cautery Aaron KELSEY Placement of stent i n cardiac conduit Aaron KELSEY Plan of Treatment Date Care Activity Detail Author Start: 03-30-2024 End: 03-30-2024 Patient encounter procedure 03/30/2024 9:10 AM EST Office Visit [facility] [address] [facility] [address] [place] [id number] Portillo Ludwig MD [address] [facility] [address] [place] [address] Arrived [facility] Comment on above: Arrived Start: 08-26-2023 End: 08-26-2023 Patient encounter procedure 08/26/2023 10:30 AM EDT Office Visit [facility] [address] [place] [id number] 1 year PSA, KUB [facility] Comment on above: 1 year PSA, KUB Start: 12-09-2022 Influenza vaccination Flu vaccine (# 1) [facility] Start: 08-25-2022 End: 08-25-2022 Patient encounter procedure 08/25/2022 Office Visit Urology [facility] Start: 07-29-2022 Creatinine measurement Creatinine mo [facility] Start: 07-29-2022 Potassium monitoring Potassium monit [facility] Start: 07-16-2022 Creatinine measurement Creatinine mo [facility] Start: 07-16-2022 Potassium monitoring Potassium monit [facility] Start: 07-11-2022 Creatinine measurement Creatinine mo [facility] Start: 07-11-2022 Potassium monitoring Potassium monit [facility] Start: 07-10-2022 Creatinine measurement Creatinine mo [facility] Start: 07-10-2022 Potassium monitoring Potassium monit [facility] Start: 02-21-2022 End: 02-21-2022 Patient encounter procedure 02/21/2022 Office Visit Urology Norbert Neff MD [address] [place] [address], [address] [place] [address] [facility] Start: 01-09-2022 Influenza vaccination Flu vacc ine (Season Ended) [facility] Start: 12-09-2021 Influenza vaccination Flu vaccine (# 1) [facility] Start: 08-22-2021 End: 08-22-2021 Patient encounter procedure 08/22/2021 Office Visit UrologNorbert Oneil MD [address] [place] [address], [address] [place] [address] [facility] Start: 07-11-2021 End: 07-11-2021 Patient encounter procedure 07/11/2021 Office Visit Urology Dolly Lopez, SENIOR LABORATORY TECHNICIAN - [employer] [address] [place] [address] [facility] Start: 07-05-2021 Annual Wellness Visi t (AWV) Annual Wellness Visit (AWV) [facility] Start: 01-09-2021 Influenza vaccination Flu vaccine (# 1) [facility] Start: 10-15-2019 DTaP/Tdap/Td vaccine (1 - Tdap) DTaP/Tdap/Td vaccine (1 - Tdap) [facility] Start: 2019 Pneumococcal 65+ yea rs Vaccine (1 of 1 - PPSV23) Pneumococcal 65+ years Vaccine (1 of 1 - PPSV23) [facility] Start: 02-06-2004 Shingles Vaccine (1 of 2) Shingles Vaccine (1 of 2) [facility] Start: 1999 Screening for malign ant neoplasm of colon [facility] Start: 1973 DTaP/Tdap/Td vaccine (1 - Tdap) DTaP/Tdap/Td vaccine (1 - Tdap) [facility] Start: 02-06-1972 Hepatitis C screening Hepatitis C sc reen [facility] Start: 1966 Depression Screen Depression Screen [facility] Start: 02-06-1964 Lipid panel [facility] Start: 02-06-1960 Pneumococcal 65+ yea rs Vaccine (1 - PCV) Pneumococcal 65+ years Vaccine (1 - PCV) [facility] Start: 1959 COVID-19 Vaccine (1) COVID-19 Vaccin e (1) [facility] Start: 1954 COVID-19 Vaccine (#1) COVID-19 Vacci ne (#1) [facility] Start: 1954 Creatinine measurement Creatinine mo nitoring [facility] Start: 1954 Hepatitis C screening Hepatitis C sc reen [facility] Start: 1954 Potassium [facility] CONTRAST Additional Contrast? None CT ABDOMEN PELVIS WO CONTRAST Additional Contrast? None Imaging STAT 07/11/2021 9:16 AM EST [employer] Phone: End: 07-16-2021 Culture, Urine [facility] Work Phone: Comment on above: 1 Occurrences starti ng 07/16/2021 until 07/16/2021 End: 07-29-2021 Culture, Urine [employer] Phone: Comment on above: 1 Occurrences starti ng 07/29/2021 until 07/29/2021 EKG 12 Lead EKG 12 Lead ECG STAT 01/25/2023 12:13 PM EDT [facility] D and K interprises Oxygen therapy [[facility] Data Set] Initiate Oxygen Therapy Protocol Respiratory Care Routine As Needed until discontinued starting 07/09/2021 [employer] Phone: Comment on above: As Needed until disc ontinued starting 07/09/2021 Immunizations Immunization Date Immunization Notes Care Provider Fa pop NEGATED: Highlighted row has not occurred!07-17-2023 influenza virus vaccine, unspecified formulation Aaron KELSEY General Surgery English Payers Date Payer Category Payer Medicaid [employer] MEDICARE A DVANTAGE [id number] 2021 Medicare AETNA MEDICARE A DVANTAGE AETNA MEDICARE REPLACEMENT [id number] 2021-Present [address] [place] [address] [id number] 1959 Medicare [id number]. [id number] 1959 Self-pay 1959 Unknown [id number] 1954 Unknown [id number] 2.16.840.1.864599.3.579.2. 593 1954 Unknown [id number] 2.16.840.1.846001.3.579.2. 593 1954 Unknown [id number] 2.16.840.1.708175.3.579.2. 593 1954 Unknown [id number] 2.16.840.1.067889.3.579.2. 593 1954 Unknown [id number] 2.16.840.1.876528.3.579.2. 593 1954 Unknown [id number] 2.16.840.1.733055.3.579.2. 593 1954 Unknown [id number] 2.16.840.1.737091.3.579.2. 593 1954 Unknown [id number] 2.16.840.1.538359.3.579.2. 593 1954 Unknown [id number] 2.16.840.1.202765.3.579.2. 593 1954 Unknown [id number] 2.16.840.1.932445.3.579.2. 173 1954 Unknown [id number] 2.16.840.1.514991.3.579.2. 173 1954 Unknown [id number] 2.16.840.1.158271.3.579.2. 173 1954 Unknown [id number] 2.16.840.1.162234.3.579.2. 173 1954 Unknown [id number] 2.16.840.1.583342.3.579.2. 727 1954 Unknown [id number] 2.16.840.1.659163.3.579.2. 727 1954 Unknown [id number] 2.16.840.1.408855.3.579.2. 727 1954 Unknown [id number] 2.16.840.1.978506.3.579.2. 727 1954 Unknown [id number] 2.16.840.1.334095.3.579.2. 727 1954 Unknown [id number] 2.16.840.1.785996.3.579.2. 727 1954 Unknown [id number] 2.16.840.1.389322.3.579.2. 727 1954 Unknown [id number] 2.16.840.1.705521.3.579.2. 1259 1954 Unknown [id number] 2.16.840.1.169152.3.579.2. 1259 1954 Unknown [id number] 2.16.840.1.198788.3.579.2. 1259 1954 Unknown [id number] 2.16.840.1.432801.3.579.2. 1259 Private Health Insurance [facility] [id number] Unknown Unknown [id number] 2.16.840.1.838915.3.579.2. 531 Social History Date Type Detail Facility Start: 05-11-1969 End: 03-30-2024 Tobacco smoking status TXIS Smokes tobacco daily [facility] Start: 05-11-1969 History of tobacco use Cigarette Smo ker [employer] Phone: Start: 07-05-2021 End: 03-30-2024 Cigarettes smoked current (pack per day) - Reported 1 [employer] Phone: Start: 07-05-2021 End: 03-30-2024 Tobacco use and exposure Smokeless tobacco non-user [employer] Phone: Start: 07-09-2021 End: 03-30-2024 Alcohol intake Current drinker of alcohol (finding) [employer] Phone: Start: 07-05-2021 History SDOH Alcohol Comment daily [facility] Work Phone: Start: 1955 Sex Assigned At Not on file [employer] Phone: Start: 06-11-2021 End: 07-11-2021 Exposure to SARS-CoV-2 (event) Not sure [employer] Phone: Start: 11-08-2021 End: 10-22-2022 Tobacco smoking status Heavy tobacco smoker (finding) [facility] Tobacco smoking status Former sm okeless tobacco user, quit more than 30 days ago [facility] Start: 02-21-2022 End: 03-30-2024 Sex Assigned At Male [facility] Start: 09-03-2023 [facility] Start: 1955 Sex Assigned At Male F [facility] Medical Equipment Procedure Code Equipment Code Equipment Origin al Text Equipment Identifier Dates Cystoscopy, with ureteral calculus manipulation and stent placement STENT BARD MULTI [id number] 22-32CM FDA Start: 02-23-2017 Stent Uret 6 Frx 26 Cm Firm [employer] - [id number] Start: 07-09-2021 STENT CONTOUR 6F R X 22-30CM FDA Start: 02-16-2017 Functional Status Date Assessment Result Facility 07-17-2023 Functional Status N/A [facility] 10-22-2022 Functional Status N/A [facility] 01-21-2022 N/A [facility] 11-08-2021 Functional Status N/A [facility] Clinical Notes 06-23-2021 to 03-30-2024 Portillo Ludwig MD - 03/30/2024 9:10 AM Elsa Ludwig MD - 06/17/2023 11:10 AM Ferdinand Mott RN - 01/25/2023 1:17 PM Clive Mott RN - 01/25/2023 12:43 PM EDTInstructionsAttachments Note Date & Type Note Facility 03-30-2024 History of Present illness Narrative Subjective Patient ID: Ronnell Peres is a 69 y.o. male who presents for No chief complaint on file. Pt unable to tolerate MRI due to back pain. Family History Problem Relation Name Age of [...] 12/12/2022 Hyperglycemia 12/12/2022 Hyperlipidemia (CMS/HCC) 12/12/2022 Hypertension (CMS/HCC) 01/30/2023 Inguinal hernia 12/12/2022 Mixed dyslipidemia (CMS/HCC) 06/13/2022 Myocardial infarction (CMS/HCC) 11/17/2017 Porokeratosis 12/12/2022 Tobacco user 09/28/2018 Internal nasal lesion 02/11/2023 DNS (deviated nasal septum) 02/11/2023 Resolved Ambulatory Problems Diagnosis Date Noted History of kidney stones 02/10/2023 History of myocardial infarction (CMS/HCC) 12/12/2022 Smoker 02/10/2023 Past Medical History: Diagnosis [...] mouth every 6 (six) hours if needed. isosorbide mononitrate ER (Imdur) 30 MG 24 hr tablet Take 30 mg by mouth in the morning. metoprolol succinate XL (Toprol-XL) 25 MG 24 hr tablet Take 12.5 mg by mouth in the morning. rosuvastatin (Crestor) 40 MG tablet Take 40 mg by mouth at bedtime. tamsulosin (Flomax) 0.4 MG 24 hr capsule Take 0.4 mg by mouth in the morning. varenicline (Chantix) 1 MG tablet Take 1 mg by mouth. No current facility-administered medications on file prior to visit. Objective Last Recorded Vitals There were no vitals filed for this visit. ENT Physical Exam Constitutional Appearance: patient appears well-developed, well-nourished and well-groomed, Communication/Voice: communication appropriate for developmental age; vocal quality normal; Respiratory Inspection: breathing unlabored; normal breathing rate; Auscultation: breath sounds are clear; Cardiovascular Inspection: extremities are warm and well perfused; no peripheral edema present; Auscultation: regular rate and rhythm; Assessment/Plan Diagnoses and all orders for this visit: Sensorineural hearing loss (SNHL) of left ear with restricted hearing of right ear As pt unable to tolerate an MRI, I will check an AB R. If ABR abnormal I will arrange an MRI under anesthesia. Schedule HAE. documented in this encounter [facility] 12-07-2023 Note [facility] CARDIOLOGY PROGR ESS NOTE HPI: Ronnell Peres is a 68 y.o. male With a past medical history including hypertension, hyperlipidemia, CAD, and angioedema. Patient presents to cardiac clinic today for follow-up. Patient here for 6 mo follow up CAD, atypical chest pain, hypertension, and hyperlipidemia. Had labs and CXR in August 2023 prior to hernia surgery. Still her intermittent atypical chest pain, but he states this is unchanged from prior visit in Jun 2023. No change in SALINAS/SOB. Denies palpitations and lightheadedness/syncope. Cardiology ROS: 10 point ROS is performed and is negative unless otherwise specified in HPI. Visit Vitals Ht 1.676 m (5' 6 ) BMI 23.57 kg/m??? Smoking Status Every Day [...] taking: Reported on 07/03/2023) 60 tablet 1 clopidogrel (Plavix) 75 mg tablet Take 1 [...] the morning. Do not crush or chew. 90 tablet 3 metoprolol succinate XL (Toprol-XL) 25 mg 24 hr tablet Take 0.5 tablets (12.5 mg) by mouth in the morning. Do not crush or chew. 45 tablet 3 metoprolol succinate XL (Toprol-XL) 25 mg 24 hr tablet Take 1 tablet (25 mg) by mouth in the morning. Do not crush or chew. 90 tablet 3 nitroglycerin (Nitrostat) 0.[address] 1 tablet (0.4 mg) under the tongue every 5 (five) minutes if needed for chest pain. 25 tablet 3 rosuvastatin (Crestor) 40 mg tablet Take 1 tablet (40 mg) by mouth at bedtime. 90 tablet 3 tamsulosin (Flomax) 0.4 mg 24 hr capsule Take 0.4 mg by mouth in the morning. No [...] with current plan. -Patient was educated on r (more content not included)... [facility] 07-03-2023 Note Patient here for 6 m o follow up CAD, chest pain, HTN, and HLD. He also needs cleared for hernia surgery with Dr. Kelsey. Still gets intermittent chest pain and SOB w/wo exertion. Had stress and echo back in Jan 2023. [facility] 07-03-2023 Note [facility] CARDIOLOGY PROGR ESS NOTE [...] -Follow-up in cardiology (more content not included)... 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 Calculus of kidney 07/09/2021 Chest pain 09/28/2018 Chronic obstructive pulmonary disease ([facility]) 02/10/2023 Pulmonary emphysema ([facility]) 12/21/2020 Coronary arteriosclerosis ([facility]) 09/28/2018 Dyspnea on exertion 12/06/2021 Epistaxis, recurrent 07/25/2021 Acid reflux 09/28/2018 GERD (gastroesophageal reflux disease) 02/10/2023 Hydronephrosis 12/12/2022 Hyperglycemia 12/12/2022 Hyperlipidemia ([facility]) 12/12/2022 Hypertension ([facility]) 01/30/2023 Inguinal hernia 12/12/2022 Mixed dyslipidemia ([facility]) 06/13/2022 Myocardial infarction ([facility]) 11/17/2017 Porokeratosis 12/12/2022 Tobacco user 09/28/2018 Internal nasal lesion 02/11/2023 DNS (deviated nasal septum) 02/11/2023 Resolved Ambulatory Problems Diagnosis Date Noted History of kidney stones 02/10/2023 History of myocardial infarction ([facility]) 12/12/2022 Smoker 02/10/2023 Past Medical History: Diagnosis [...] a left MIDDLETON. documented in this encounter [facility] 02-19-2023 Hospital Discharge instructions Patient Education 02/19/2023 13:06:29 Post Op Patient Instructions - FT (CUSTOM) Follow Up Care 02/17/2023 09:28:50 With:Portillo Ludwig Address:Unknown When: Unknown Comments:As needed [facility] 02-18-2023 Note [id number] [facility] 01-30-2023 Note Patient here for fol low up stress test and echo. He was seen a few days ago in [place] ED for epistaxis and chest pain. Review of Systems Cardiovascular: Positive for chest pain and dyspnea on exertion. Respiratory: Positive for shortness of breath. All other systems reviewed and are negative. [facility] 01-30-2023 Note [facility] CARDIOLOGY PROGR ESS NOTE [...] us to parti (more content not included)... [facility] 01-25-2023 History of Present illness Narrative Patient [...] now. Notified provider. documented in this encounter [facility] 12-31-2022 Note Patient here c/o alcon st pressure a few days ago. He said he thinks he had a heart attack, but did not seek medication attention. He did not take nitroglycerin. Also felt some sharp pain or electrical shocks down the LUE. This was quick in duration. He felt like crap that whole day. [place] better the next day. Has been keeping track of his BP lately. Review of Systems Cardiovascular: Positive for chest pain and dyspnea on exertion. Respiratory: Positive for shortness of breath. All other systems reviewed and are negative. [facility] 12-31-2022 Note [facility] CARDIOLOGY PROGR ESS NOTE [...] any questions or concerns. Cam Forrest MD [facility] 08-11-2023 Note Staff notified that b/p uncontrolled therefore, amlodipine 5 mg daily ordered Staff to notifiy pt Continue monitoring b/p and pt to call office b/p remains above 130/80 or for any concerns Yasmine Crowell NP Division of Cardiology, [facility]- [phone] Pager- [phone] Email- [email or web address] 12-16-2021 Note CARDIAC STRESS TEST Requesting [...] and relayed in a separate dictation. [facility] 07-10-2021 History of Present illness Narrative Discharge [...] following this hospitalization. Patient resides outside of [place] near [place] with his . 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 Patient uses no DME and has no [...] planning concerns or needs at this point. AIRLINE TICKET AGENT to remain involved and assist with any/all [...] loss Fluid Accumulation: No significant fluid accumulation Machine Shop Instructor Strength: Not Performed Estimated Daily Nutrient Needs: Energy (kcal): 8639-5154 (25-30); Weight Used for Energy Requirements: Current [...] 140 lb (63.5 kg) (couple weeks ago) Telferner Body Weight: 142 lbs; % Telferner Body Weight 95.1 % BMI: 21.8 Adjusted [...] No discharge needs at this time Contact: [phone] Patient complaining of pain. Encouraged patient to [...] pumps at this time. Pt arrived to [facility] via wheelchair from post op recovery. Pt alert and oriented x4. Pt was able to ambulate from wheelchair to recliner in room. Pt rates 2/10 pain when sitting in one place. Pt arrived on room air with no IV access. Pt denies any needs at this time. Report given to Gama HADLEY. [facility]. Discharge Criteria Inpatients must meet [...] adequate pain relief. Dr Neff called by MEETING FACILITATOR and updated. Pt being admitted overnight for [...] test on 07/05/2021 documented in this encounter [employer] Phone: 07-10-2021 Hospital course Narrative DISCHARGE SUMMARY [...] in 6 weeks with a KUB prior. SABI Menchaca CNP 3:32 PM 07/10/2021 documented in this encounter [employer] Phone: 07-09-2021 Hospital Discharge instructions Dolly Lopez APRN - CNP - 07/09/2021 You may experience waves of [...] as directed as needed. Call our office [phone] or go to ER (if after normal office hours) if you develop fever, intractable vomiting, severe/intolerable pain. The following attachments cannot be sent through Care Everywhere.Kidney Stone Prevention Diet: General Info (Djiboutian)documented in this encounter [employer] Phone: 06-23-2021 Note PROCEDURE: XR CHEST 1 [...] by: LENIN JAY Date: 2021-06-22 22:[address] [facility] Evaluation + Plan note No data available for this section General Surgery Nevin Evaluation + Plan note Future Appointments Appointment Date:09/23/2023 02:40:00 PM Scheduled Provider:Aaron KELSEY MD Location:[facility] Appointment Type: Post Op 15 [facility] General Surgery English Evaluation note Diagnosis Preop testing Preoperative examination, unspecified documented in this encounter [employer] Phone: evaluation note* Diagnosis Ureteral calculus- Primary Calculus of ureter Renal calculus Calculus of kidney documented in this encounter [employer] Phone: evaluation note* Diagnosis Left lower quadrant abdominal pain- Primary Urinary tract infection with hematuria, site unspecified Ureteral calculus Calculus of ureter documented in this encounter [employer] Phone: [email or web address] note* Diagnosis Ureteral stone Calculus of ureter Nausea Nausea alone Decreased appetite Anorexia documented in this encounter [employer] Phone: [email or web address] note* Diagnosis Renal colic LLQ pain Abdominal pain, left lower quadrant Incomplete bladder emptying documented in this encounter [employer] Phone: [email or web address] note* Diagnosis Renal colic LLQ pain Abdominal pain, left lower quadrant Incomplete bladder emptying documented in this encounter [employer] Phone: evalzkrajf note* Diagnosis Renal colic LLQ pain Abdominal pain, left lower quadrant Incomplete bladder emptying documented in this encounter [employer] Phone: evaluation note* Diagnosis Ureteral stone Calculus of ureter documented in this encounter [employer] Phone: evaluation note* Diagnosis Intermittent chest pain- Primary Chest pain, unspecified History of epistaxis Personal history of other diseases of respiratory system documented in this encounter [facility]* Diagnosis Asymmetric SNHL (sensorineural hearing loss)- Primary Sensorineural hearing loss, asymmetrical Left-sided tinnitus Unspecified tinnitus documented [facility] information availableOhio[facility] Work Phone: Evaluation note* Diagnosis Sensorineural hearing loss (SNHL) of left ear with restricted hearing of right ear- Primary [facility]* Instructions* David Robbins DO - [...] sent through Care Everywhere. * Lithotripsy: Post-op (Djiboutian) * UTI (Urinary Tract Infection): Male (Djiboutian) [facility] Phone: Hospital Discharge instructions No data available for this section General Surgery Sqord Progress note No data available for this section General Surgery Appurify Reason for visit Narrative* Auth/Cert Specialty Diagnoses / Procedures Referred By Miguel Angel t Referred To Contact Diagnoses Left ureteral calculus LEFT URETERAL CALCULUS, BLADDER WALL THICKENING Procedures AR CYSTO/URETERO W/LITHOTRIPSY &INDWELL STENT INSRT AR CYSTO/URETERO W/LITHOTRIPSY &INDWELL STENT INSRT CYSTOSCOPY URETEROSCOPY LASER- HLL CYSTOSCOPY URETERAL STENT INSERTION- POSS BLADDER BX Norbert Neff MD [address] [place] [address], [address] [place] [address] [address] [place] [address] Referral ID Status Reason Start Date Expiration Date Visits Re quested Visits Authorized 1 1 [employer] Phone: Summary Purpose Family History No Family History Records FoundNo Family History Records Found No data available for this section No data available for this section No Family History Records FoundNo Family History Records Found No data available for this section No data available for this section No [...] Christiane Freeze Spouse Primary Decision Maker Jesusita Walkerholsharon Child Secondary Decision Maker Healthcare Agents on [...] Christiane Freeze Spouse Primary Decision Maker Jesusita Myerholtz Child Secondary Decision Maker [phone] ([place]) Advance Directive Response Recorded Date/ Time Advance Directives No September 02, 2 024 1:03pm Reason for Referral Specialty Diagnoses / Procedures Referred By Miguel Angel mcelroy Referred To Contact Radiology Diagnoses Renal colic LLQ pain Incomplete bladder emptying Procedures CT ABDOMEN PELVIS WO CONTRAST Additional Contrast? None Dolly Lopez, SENIOR LABORATORY TECHNICIAN - FLEXIBLE NANNY [address] [place] [address] Referral ID Status Reason Start Date Expiration Date Visits Re quested Visits Authorized [id number] Closed 07/16/2021 01/12/2022 1 1 Additional Source Comments (unrecognized sect ion and content) No Status Records FoundNo Status Records FoundNo Status Records FoundNo Status Records FoundNo Status Records FoundNo Status Records FoundNo Status Records Found INFORMATION SOURCE (unrecogn ized section and content) DATE CREATED AUTHOR 11/20/2017 [facility] DATE CREATED AUTHOR AUTHOR'S ORGANIZ ATION 12/21/2021 [facility] DATE CREATED AUTHOR AUTHOR'S ORGANIZ ATION 08/27/2023 [facility] DATE CREATED AUTHOR AUTHOR'S ORGANIZ ATION 09/07/2023 [facility] DATE CREATED AUTHOR AUTHOR'S ORGANIZ ATION 09/25/2023 [facility] DATE CREATED AUTHOR AUTHOR'S ORGANIZ ATION 12/20/[address] [facility] DATE CREATED AUTHOR AUTHOR'S ORGANIZ ATION 04/01/2024 [facility] Care Teams (unrecognized sec tion and content) Business Analysis Analyst Relationship Specialty [place] [address] [place] [address] PCP - General Family Medicine 07/05/21 Business Analysis Analyst Relationship Specialty [place] [address] [place] [address] PCP - General Family Medicine 07/05/21 Business Analysis Analyst Relationship Specialty [place] [address] [place], [place] [id number] PCP - General Family Medicine 07/05/21 Business Analysis Analyst Relationship Specialty Start Date End Date Dylan Zaidi MD [address] [place] [address] PCP - General Family Medicine 07/05/21 Business Analysis Analyst Relationship Specialty Start Date End Date Dylan Zaidi MD [address] [place] [address] PCP - General Family Medicine 07/05/21 Business Analysis Analyst Relationship Specialty Start Date End Date Dylan Zaidi MD [address] [place] [id number] PCP - General Family Medicine 07/05/21 Business Analysis Analyst Relationship Specialty Start Date End Date Dylan Zaidi MD [address] [place] [id number] PCP - General Family Medicine 07/05/21 Business Analysis Analyst Relationship Specialty Start Date End Date Dylan Zaidi MD [address] [place] [address] PCP - General Family Medicine 07/05/21 Business Analysis Analyst Relationship Specialty Start Date End Date Dylan Zaidi MD [address] [place] [address] PCP - General Family Medicine 07/05/21 Business Analysis Analyst Relationship Specialty Start Date End Date Dylan Zaidi MD [address] [place] [facility] [place] [address] PCP - General Family Medicine 07/05/21 Business Analysis Analyst Relationship Specialty Start Date End Date Dylan Zaidi MD [address] [place] [address] PCP - General Family Medicine 01/28/23 Team Status: Inactive Member Role Status Dates Aaron Kelsey MD FACS Attending Provider Active Start: September 02, 2023 End: September 02, 2023 Business Analysis Analyst Relationship Specialty Start Date End Date Dylan Zaidi MD [address] [place] [address] PCP - General Family Medicine 01/28/23 Business Analysis Analyst Relationship Specialty Start Date End Date Dylan Zaidi MD [address] [place] [address] PCP - General Family Medicine 01/28/23 Scheduled Active and Recently Administ ered Medications (unrecognized section and content) Medication Order 07/08/2021 07/09/2021 07/10/2021 acetaminophen (TYLENOL) tablet 650 mg (COMPLETED) 650 mg, Oral, ONCE, On Thu07/09/21 at 1230, For 1 dose, Maximum dose of acetaminophen is 4000 mg from all sources in 24 hours., Pre-op (day of surgery) 1233 (Given - Provider: Vanita Delaney RN) aspirin EC tablet 81 mg 81 mg, Oral, DAILY, First dose on Thu07/09/21 at 2000, Do not crush or break. 2055 (Not Given - Provider: Gama Bell RN - Reason: Patient/family refused) 0838 (Given - Provider: Kami Moses, JOMAR) ciprofloxacin (CIPRO) IVPB 400 mg (COMPLETED) 400 mg, IntraVENous, PHILOSOPHY SPECIALIST TO O.R., 1 dose, On Thu07/09/21 at 1515, Administer within 1 hour prior to incision, Pre-op (day of surgery) 1458 (New Bag - Provider: Kalina Dc RN)1558 (Stopped - Provider: Kami Moses, JOMAR) clonazePAM (KLONOPIN) tablet 0.25 mg 0.25 mg, Oral, 3 TIMES DAILY, First dose on Thu07/09/21 at 2100 2055 (Given - Provider: Gama Bell RN) 0838 (Given - Provider: Kami Moses RN)1458 (Given - Provider: Kami oMses RN)2100 (Due) clopidogrel (PLAVIX) tablet 75 mg 75 mg, Oral, DAILY, First dose on Thu07/09/21 at 1999 2054 (Given - Provider: Gama Bell RN) 0844 (Given - Provider: Kami Moses RN) dimenhyDRINATE (DRAMAMINE) tablet 50 mg (COMPLETED) 50 mg, Oral, ONCE, On Thu07/09/21 at 1230, For 1 dose, Pre-op (day of surgery) 1233 (Given - Provider: Vanita Delaney RN) HYDROcodone-acetaminophen (NORCO) 5-325 MG per tablet 1 tablet (COMPLETED) 1 tablet, Oral, ONCE, On Thu07/09/21 at 1745, For 1 dose, Maximum dose of acetaminophen is 4000 mg from all sources in 24 hours. 1729 (Given - Provider: Janis Najera RN) ketorolac (TORADOL) injection 30 mg (COMPLETED) 30 [...] 0844 (Given - Provider: Kami Moses RN) phenazopyridine (PYRIDIUM) tablet 200 mg 200 mg, Oral, 3 TIMES DAILY WITH MEALS, First dose on Thu07/10/21 at 1045, May cause discoloration of urine. 1033 (Given - Provid er: Kami Moses RN)1600 (Given - Provider: Kami Moses RN) rosuvastatin (CRESTOR) tablet 40 mg 40 mg, Oral, EVERY EVENING, First dose on Thu07/09/21 at 1999 (Given - Provider: Gama Bell RN) 1800 [...] 0844 (Given - Provider: Kami Moses RN) Continuous Medication Order 07/08/2021 07/09/2021 07/10/2021 0.45 [...] surgery) 1234 (New Bag - Provider: Nadia Delaney, RN)1502 (NoRateChange - Provider: Sandie Rai APRN - INDUSTRIAL THERAPIST)1821 (Stopped - Provider: Janis Najera RN) PRN [...] (4-6), Starting on Thu07/09/21 at 1939, Post-op Or oxyCODONE (ROXICODONE) immediate release tablet [...] By Miguel Angel t Referred To Contact Radiology Diagnoses Renal colic LLQ pain Incomplete bladder emptying Procedures CT ABDOMEN PELVIS WO CONTRAST Additional Contrast? None Dolly Lopez, SENIOR LABORATORY TECHNICIAN - FLEXIBLE NANNY [address] [facility] [address] [place] [address] Referral ID Status Reason Start Date Expiration Date Visits Re quested Visits Authorized [id number] Closed 07/16/2021 01/12/2022 1 1 Reason Comments Epistaxis Intermittent nose bl eeds since Thursday, also reports intermittent chest pain Reason Comments Hearing Loss Follow up audio 06/10 Reason Comments Hearing Loss Ordered Prescriptions (unrec ognized section and content) [...] manage pain 12 tablet 0 07/11/2021 07/14/2021 Goals (unrecognized section and content) Goals may be documented in a n alternate section FOR RECORDS PERTAINING TO PATIENTS WHO ARE [...] BE BASED ON THE PRIMARY CLINICAL RECORDS. [facility] [employer] [facility]. provides no warranty or guarantee of the accuracy or completeness of information in this document.
== END 2024-06-11 10:50 | disposition home or self-care (01) ==
LOC: LAB 10:51 → RAD 10:57
PROVIDERS: PCP Nurse Practitioner Family; Visit Provider Nurse Practitioner Family
DX: J40 Bronchitis, not specified as acute or chronic (principal)
CPT/HCPCS: 71046

== ENCOUNTER 2024-12-30 09:24 | Outpatient (OUT) | payer MEDICARE, SELFPAY ==
--- OUTSIDE RECORDS SUMMARY | 2024-06-20 04:26 | XMS_ITS ---
Author Organization The [facility] in [place] Address [address] [place] [address] Care Team Providers Care Talent Acquisition Assistant Name Role Phone Renée Ramos Primary Care Provider [phone] REASON FOR VISIT Chest X-Ray Results Encounters Encounter Location Date Provider Diagnosis [facility] [address] [place] [address] 06/20/2024 Renée Ramos Plan Of Treatment No Information Progress Notes * Jack HAYWARD ADOB:1955 (69 yo M)Acc No.[id number]:06/20/2024 Patient: Jack OSHEA :1955 A ge:69 Y S ex:Male Address:[address] [facility] [address] [address] [place] [address] * true * Date: Generated for Justin melara/Modesta/eTransmitting on: 0 12/30/2024 09:31 AM EDT
--- OUTSIDE RECORDS SUMMARY | 2024-07-15 05:06 | XMS_ITS ---
Author Organization The [facility] in [place] Address [address] [place] [address] Care Team Providers Care Administration Physician Name Role Phone Renée Ramos Primary Care Provider REASON FOR VISIT cough Medications Medication SIG (Take, Route, Frequency, Duration) Notes Start Date End Date Status Trelegy Ellipta 100-62.5-25 MCG/ACT 1 puff Inhalation Once a day 07/15/2024 Active Encounters Encounter Location Date Provider Diagnosis [address] [address] 07/15/2024 Renée Ramos Plan Of Treatment Medication Medication Name Sig Start Date Stop Date Notes Trelegy Ellipta 100-62.5-25 MCG/ACT 1 puff Inhalation Once a day 07/15/2024 Progress Notes * YESYJack ADOB:1955 (69 yo M)Acc No.[id number]:07/15/2024 Patient: Jack OSHEA Elizabeth :1955 A ge:69 Y S ex:Male Address:[address] , [place] [address] * Refills Start Trelegy Ellipta Aerosol Powder Breath Activated, 100-62.5-25 MCG/ACT, Inhalation, 1 Each, 1 puff, Once a day, Refills=11 * true * Date: Generated for Printi ng/Faxing/eTransmitting on: 0 12/30/2024 09:31 AM EDT
--- NOTE | 2024-12-30 | NM_ITS ---
Patient Name: RONNELL PERES MR#: [id number] : 1955 Exam Date: 12/30/2024 Ordering Doctor: DR MICHELLE ASHRAF M.D. RADIOLOGY REPORT PROCEDURE: NM ARUN PERF SPECT REST STR COMPARISON: None. INDICATIONS: CORONARY ARTERY DISEASE INVOLVING [place] CORONARY ARTERY TECHNIQUE: Exam Description: Stress/Rest one day protocol gated SPECT Rest Imagin.4 mCi Tc-99m Cardiolite IV on 12/30/2024 Stress Imaging 30.8 mCi Tc-99m Cardiolite IV on 12/30/2024 Exercise Protocol: 0.4 mg Lexiscan given IV Heart Rate (bpm): Rest: 63 Max: 108 PMHR: 72 Blood Pressure: Rest: 150/90 Max: 150/90 Symptoms: Rest and peak stress ECG findings were pending, and the exercise portion of the study was pending per attending physician [facility]. For more details, please see separate cardiac stress test report. FINDINGS: QUALITY OF STUDY: Good PERFUSION DEFECT: LOCATION: N/A SIZE: N/A SEVERITY: N/A TYPE: N/A WALL MOTION: Normal wall motion LV SIZE: 81 mL. TID / TCD: 1.0 LVEF: Calculated EF 64%. SUMMARY: Myocardial perfusion imaging study is normal CONCLUSION: 1. Myocardial perfusion is normal with soft tissue attenuation 2. Global left ventricular systolic function is normal; EF 64% 3. No evidence of significant transient ischemic dilatation Dictated by: Jenniffer Francisco M.D. on 12/30/2024 at 17:28 Approved by: Jenniffer Francisco M.D. on 12/30/2024 at 17:30
--- OUTSIDE RECORDS SUMMARY | 2024-12-30 09:31 | XMS_ITS | Patient Health Record ---
Author Organization [facility] in [place] Address [address] [place] [address] Care Team Providers Care Process Architect Name Role Phone Renée Ramos Primary Care Provider Allergies Allergen (clinical drug ingredient) Drug/Non Drug Allergy documented on EMR Reaction Allergy Type Onset Date Status lisinopril Lisinopril throat swelling Drug Allergy Active Results Component Value Reference Range Notes XR chest 2V Reviewed date:06/20/2024 08:27:42 AM Interpretation: Performing Lab: Notes/Report: Source Facility: [place] [address] XRay Report Signed Patient: JACK HAYWARD MR#: [id number] : 1955 Acct:[id number] Age/Sex: 69 / M ADM Date: 06/11/24 Loc: RAD Attending Dr: RENÉE RAMOS Ordering Physician: RENÉE RAMOS Date of Service: 06/11/24 Procedure(s): XR chest 2V Accession Number(s): [id number] cc: RENÉE RAMOS [place] [id number] Patient Name: JACK HAYWARD MRN: [id number] date: 1955 Sex: M Assigned Patient Location: RAD Current Patient Location: RAD Accession/Order Number: [id number] Exam Date: 06/11/2024 11:20 Report Date: 06/11/2024 [...] M.D. Signed By: 06/11/241703 DD/ 01 TD/TT: Patient Liaison: [place] [address] XRay Report Signed Patient: JACK HAYWARD MR#: [id number] : 1955 Acct:[id number] Age/Sex: 69 / M ADM Date: 06/11/24 Loc: RAD Attending Dr: RENÉE RAMOS Ordering Physician: RENÉE RAMOS Date of Service: 06/11/24 Procedure(s): XR chest 2V Accession Number(s): [id number] cc: RENÉE RAMOS [address] [address] Patient Name: JACK HAYWARD MRN: [id number] date: 1955 Sex: M Assigned Patient Location: [facility] Current Patient Location: [facility] Accession/Order Numb er: [id number] Exam Date: 06/11/2024 11:20 Report Date: 06/11/2024 [...] M.D. Signed By: 06/11/241703 DD/ 01 TD/TT: Patient Liaison: DANN Reviewed date:02/04/2024 02:15:23 PM Interpretation: Performing Lab: Notes/Report: Source Facility: [place] [address] Cardiac Rehab Report Signed Patient: JACK HAYWARD MR#: [id number] : 1955 Acct:[id number] Age/Sex: 68 / M ADM Date: 02/03/24 Loc: CR Attending Dr: Lara Negron M.D. Ordering Physician: Justice Mccray D.O. 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 Signed By: 02/03/24231002/03/242310 DD/ 142 TD/TT: Patient Liaison: [place] [address] Cardiac Rehab Report Signed Patient: JACK HAYWARD MR#: [id number] : 1955 Acct:[id number] Age/Sex: 68 / M ADM Date: 02/03/24 Loc: CR Attending Dr: Aki Negron M.D. Ordering Physician: Justice Mccray D.O. 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 Signed By: 02/03/24231002/03/24 231 DD/ 1429 TD/TT: Patient Liaison: DANN Reviewed date:03/22/2024 08:49:29 AM Interpretation: Performing Lab: Notes/Report: Source Facility: [place] [address] Cardiac Rehab Report Signed Patient: JACK HAYWARD MR#: [id number] : 1955 Acct:[id number] Age/Sex: 69 / M ADM Date: 02/03/24 Loc: CR Attending Dr: Lara Negron M.D. Ordering Physician: Justice Mccray D.O. 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 Signed By: 03/21/24224303/21/242243 DD/ 0736 TD/TT: Patient Liaison: [place] [address] Cardiac Rehab Report Signed Patient: JACK HAYWARD MR#: [id number] : 1955 Acct:[id number] Age/Sex: 69 / M ADM Date: 02/03/24 Loc: CR Attending Dr: Aki Negron M.D. Ordering Physician: Justice Mccray D.O. 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 Signed By: 03/21/24224303/21/242243 DD/ 0736 TD/TT: Patient Liaison: DANN Reviewed date:04/20/2024 10:06:26 AM Interpretation: Performing Lab: Notes/Report: Source Facility: [place] [address] [place] [address] Cardiac Rehab Report Signed Patient: JACK HAYWARD MR#: [id number] : 1955 Acct:[id number] Age/Sex: 69 / M ADM Date: 02/03/24 Loc: MIKE Attending Dr: Non-Staff Physician Felicia Ordering Physician: Justice Mccray D.O. 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 Signed By: 04/19/24194304/19/241943 DD/ 1001 TD/TT: Patient Liaison: [place] [address] Cardiac Rehab Report Signed Patient: JACK HAYWARD MR#: [id number] : 1955 Acct:[id number] Age/Sex: 69 / M ADM Date: 02/03/24 Loc: CR Attending Dr: Aki Negron M.D. Ordering Physician: Justice Mccray D.O. 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 Signed By: 04/19/24194304/19/241943 DD/ 00 TD/TT: Patient Liaison: DANN Reviewed date:02/18/2024 08:40:23 AM Interpretation: Performing Lab: Notes/Report: Source Facility: [place] [address] Cardiac Rehab Report Signed Patient: JACK HAYWARD MR#: [id number] : 1955 Acct:[id number] Age/Sex: 69 / M ADM Date: 02/03/24 Loc: CR Attending Dr: Lara Negron M.D. Ordering Physician: Justice Mccray D.O. 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 Signed By: 02/17/24225302/17/242253 DD/ 42 TD/TT: Patient Liaison: [place] [address] Cardiac Rehab Report Signed Patient: JACK HAYWARD MR#: [id number] : 1955 Acct:[id number] Age/Sex: 69 / M ADM Date: 02/03/24 Loc: CR Attending Dr: Aki Negron M.D. Ordering Physician: Justice Mccray D.O. 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 Signed By: 02/17/24225302/17/242253 DD/ 42 TD/TT: Patient Liaison: Reason For Referral No Information Medications Medication SIG (Take, Route, Frequency, Duration) Notes Start Date End Date Status Trelegy Ellipta 100-62.5-25 MCG/ACT 1 puff Inhalation Once a day 07/15/2024 Active Albuterol Sulfate HFA 108 (90 Base) MCG/ACT 1 puff as needed Inhalation every 4 hrs 06/07/2024 Active Rosuvastatin Calcium 40 MG 1 tablet Oral ly every evening Active predniSONE 20 MG 2 tablet Orally Once a day for 5 days 06/07/2024 Active Cipro 500 MG 1 tablet Orally ever y 12 hrs for 10 days 06/10/2024 Active Clopidogrel Bisulfate 75 MG 1 tablet Ora lly Once a day Active Aspirin Adult Low Dose 81 MG 1 tablet Orally Once a day Active Metoprolol Succinate ER 25 MG 1 tablet Orally Once a day Active Isosorbide Mononitrate ER 30 MG 1 tablet in the morning Orally Once a day Active Flomax 0.4 MG 1 capsule Orally Onc e a day Active Benzonatate 200 MG 1 capsule as needed Orally Three times a day for 7 days 06/07/2024 Active Doxepin HCl 10 MG 1 Orally tid = prn anxiety for 30 days 01/26/2023 Active Mupirocin 2 % 1 application Applications Instructor ally Twice a day for 5 days 06/07/2024 Active Norvasc 5 MG 1 tablet Orally Once a day Active Social History Tobacco Use: Social History Observation Description Date Details (start date - stop date) Current Smoker 05/11/1969 - NA Tobacco Use/Smoking Question Answer Notes Patient is a current smoker When did you start smoking? 05/11/1969 How often do you smoke cigarettes? every day How many cigarettes a day do you smoke? 11-20 Are you interested in quitting? Ready to quit Additional Findings: Tobacco User Modera te cigarette smoker (10-19 cigs/day) Alcohol Screen (Audit-C) Question Answer Notes Did you have a drink contain ing alcohol in the past year? Yes How often did you have 6 or more drinks on one occasion in the past year? Four or more times a week (4 points) How many drinks did you have on a typical day when you were drinking in the past year? 5 or 6 drinks (2 points) How often did you have a dri nk containing alcohol in the past year? Daily or almost daily (4 points) Points 10 Interpretation Positive AUDIT-C (Standard) Question Answer Notes Did you have a drink contain ing alcohol in the past year? Yes How often did you have six o r more drinks on one occasion in the past year? Never (0 point) How many drinks did you have on a typical day when you were drinking in the past year? 1 or 2 drinks (0 point) How often did you have a dri nk containing alcohol in the past year? Monthly or less (1 point) Points 1 Interpretation Negative Problems Problem Type SNOMED Code ICD Code Onset Dates Problem Status W/U Status Risk Notes Problem 98352984 Essential (primary) hypertension (I10) Active confirmed Problem Generalized anxiety disorder (85741528) Generalized anxiety disorder (F41.1) Active confirmed Problem 535107809 Sensorineural hearing loss, bilateral (H90.3) Active confirmed Problem 07914948 Unspecified hearing loss, bilateral (H91.93) Active confirmed Problem 0400296365565 Tinnitus, left e ar (H93.12) Active confirmed Problem 918542193 Deviated nasal septum (J34.2) Active confirmed Problem 994945940 Other specified disorders of nose and nasal sinuses (J34.89) Active confirmed Problem 9313514371701 Epistaxis (R04.0) Active confirme d Problem COPD - Chronic obstructive pulmonary disease (20432588) COPD (chronic obstructive pulmonary disease) (J44.9) Active confirmed Problem Anxiety (32148009) Anxiety (F41.9) Active confi rmed Problem Hyperglycemia (78530963) Hyperglycemia (R73.9) Active confirmed Problem Alcohol abuse (11469524) Alcohol abuse (F10.10) Active confirmed Problem Nephrolithiasis (29714192) Nephrolithiasis (N20.0) Active confirmed Problem Multiple nodules of lung (113435214) Lung nodules (R91.8) Active confirmed Problem Porokeratosis (248858307) Porokeratosis (Q82.8) Active confirmed Problem Bloody nose (R04.0) Active confirmed Problem Inguinal hernia (620536831) Inguinal hernia (K40.90) Active confirmed Problem Old myocardial infarction (6442716) History of AR (myocardial infarction) (I25.2) Active confirmed Vital Signs Heart Rate 75 /min 06/07/2024 Oximetry 95 % 06/07/2024 Blood pressure diastolic 66 mm Hg 06/07/2024 Height 66 in 06/07/2024 Blood pressure systolic 118 mm Hg 06/07/2024 Weight 147.6 lbs 06/07/2024 BMI 23.82 kg/m2 06/07/2024 Encounters Encounter Location Date Provider Diagnosis [facility] [address] [place] [address] 06/07/2024 Renée Ramos Bronchitis J40 [facility] [address] [place] [address] 06/10/2024 Renée Ramos Bronchitis J40 [facility] [address] [place] [address] 06/20/2024 Renée Ramos [facility] [address] [place] [address] 07/15/2024 Renée Ramos Assessments Encounter Date Diagnosis (ICD Code) Assessment Notes Treatment Notes Treatment Clinical Notes Section Notes 06/07/2024 Bronchitis (ICD-10 - J40) discussed smoking cessation fu if not improving 06/10/2024 Bronchitis (ICD-10 - J40) 06/07/2024 Other needs to schedule wellness Plan Of Treatment Pending Test Test Name Order Date CMP (COMPLETE METABOLIC PANEL) 3 HEMOGLOBIN A1C (GLYCO) 10/09/2022 INSULIN, TOTAL 10/09/2022 LIPID PANEL (CHOL/TRIG/HDL/LDL) 10/10/19 23 CBC WITH DIFF 10/09/2022 PSA, PROSTATE-SPECIFIC ANTIGEN 3 URIC ACID 10/09/2022 STOOL OCCULT BLOOD 10/09/2022 THYROID PANEL (T4/TSH/FREE T3) 3 Insurance Providers Payer Name Payer Address Payer Phone Subscriber Number Group Number Insured Name Patient Relationship to Insured Coverage Start Date Coverage End Date [employer] [address] [place] [address] [id number] YesyJack Self - patient is the insured 2 Medical (General) History Medical History History ICD Code Inguinal hernia K40.90 Nephrolithiasis N20.0 Hyperglycemia R73.9 COPD (chronic obstructive pulmonary dise ase) J44.9 Porokeratosis Q82.8 Alcohol abuse F10.10 Anxiety F41.9 History of AR (myocardial infarction) I2 5.2 Cardiac stents present Surgical History Surgery Date(Month/Year) Kidney Stones Removed Hernia repair- Dr Barajas 08/2023 Hospitalization History Reason Date(Month/Year) Kidney stone blasting
--- OUTSIDE RECORDS SUMMARY | 2024-12-30 09:32 | XMS_ITS | CCD ---
Author Organization [facility] Care Team Providers Care Cartography Technician Name Role Phone CRISTIN, DONN Diana Unavailable Unavailable SELF, REFERRED Unavailable Unavailable RENNO, ANAS Unavailable Unavailable AHMED, ANDREW Unavailable Unavailable SC Unavailable Unavailable UNKNOWN, PROVIDER Unavailable Unavailable PHYSICIAN, [...] Consulting Unavailable ROMEO, NELLY Primary Care Unavailable Leinn Jay Consulting Unavailable WARNER TRIPP Consulting Unavailable DR SUSAN BOYLE Attending Unavailable DR SUSAN BOYLE Admitting Unavailable DR SUSAN BOYLE Consulting Unavailable ROMEO, NELLY Primary Care Unavailable DONN CROWELL Admitting Unavailable DONN CROWELL Attending Unavailable DR DYLAN ZAIDI Primary Care Unavailable ROMEO, NELLY Primary Care Unavailable NELLY WALTERS Attending Unavailable ROMEO, NELLY Admitting Unavailable ROMEO, NELLY Consulting Unavailable CAM FORREST Attending Unavailable CAM FORREST Admitting Unavailable DR DUSTIN TUCKER V Consulting Unavailable DR DYLAN ZAIDI Primary Care Unavailable CAM FORREST Consulting Unavailable Dylan Zaidi MD Primary Care Provider [phone] Dylan Zaidi MD Primary Care Provider [phone] Dylan Zaidi MD Primary Care Provider [phone] MD Aaron Kelsey Attending Provider Nill, Aaron R Attending Unavailable Nill, Aaron R Admitting Unavailable NILL, Aaron R Attending Unavailable NILL, Aaron R Attending Unavailable NILL, Aaron White Attending Unavailable NILL, Aaron White Attending Unavailable NILL, Aaron White Attending Unavailable Timmis, Portillo H Attending Unavailable Timmis, Portillo H Referring Unavailable Timmis, Portillo H Admitting Unavailable Timmis, Portillo H Attending Unavailable Timmis, Portillo H Referring Unavailable Timmis, Portillo H Admitting Unavailable JARAD, GUILLE A Attending Unavailable TIMMIS, PORTILLO H Referring Unavailable TIMMIS, PORTILLO H Attending Unavailable TIMMIS, PORTILLO H Attending Unavailable TIMMIS, PORTILLO H Attending Unavailable DYLAN ZAIDI Primary Care Unavailable DORKOSKIE, CHANDLER D Referring Unavailable DORKOSKIE, CHANDLER D Referring Unavailable DYLAN ZAIDI Primary Care Unavailable CAM FORREST Attending Unavailable MICHELLE PULLIAM Attending Unavailable Allergies Allergy Classification Reported Allergen(s) Allergy Type Date of Onset Reaction(s) Facility (8 sources) Lisinopril; Translations: [lisinopril] Drug Allergy 3 Angioedema, Dysphagia (disorder) [facility] (5 sources) Lisinopril Propensity to adverse reactions 3 Angioedema [facility] [employer] Work Phone: (1 source) No Known Medication Allergies; Translations: [No Known Medication Allergies] Propensity to adverse reactions (disorder) [facility] Repository Medications Current Medications Medication Drug Class(es) [...] 07/14/2021 Active amLODIPine 5 mg oral tablet (10 sources) Dihydropyridine Calcium Channel Joan Start: 12-19-2022 [...] hydrochloride 150 mg extended release oral tablet (8 sources) Aminoketone Start: 06-13-2022 take 1 tablet by mouth twice daily at bedtime buPROPion (WELLBUTRIN SR) 150 MG extended release tablet TAKE 1 TABLET BY MOUTH TWICE DAILY (IN THE MORNING & AT BEDTIME) do not crush, chew or split TABLET 06/13/2022 Active Start: 06-13-2022 take 1 tablet by cristal th every twelve hours in the morning buPROPion SR (Wellbutrin SR) 150 MG 12 hr tablet Take 150 mg by mouth in the morning and 150 mg before bedtime. 06/13/2022 Active clonazePAM 0.5 mg oral tablet [...] Active doxepin hydrochloride 10 mg oral capsule (11 sources) Tricyclic Antidepressant Start: 01-26-2023 take 1 capsule by mouth three times daily as needed doxepin (SINEquan) 10 MG capsule Take 10 mg by mouth 3 (three) times a day as needed. 01/26/2023 Active take 1 capsule by mouth once sergio ly doxepin (SINEQUAN) 10 MG capsule Take 1 capsule by mouth nightly Active hydrOXYzine hydrochloride 25 mg oral tablet [...] mononitrate 30 mg extended release oral tablet (13 sources) Nitrate Vasodilator Start: 06-13-2022 take 1 tablet by mouth once daily in the morning isosorbide mononitrate (IMDUR) 30 MG extended release tablet TAKE 1 TABLET BY MOUTH EVERY MORNING (do not crush or chew) 06/13/2022 Active lisinopril 5 mg oral tablet [...] Status: Ordered nitroglycerin 0.4 mg sublingual tablet (16 sources) Nitrate Vasodilator Start: 07-09-2021 0.4 mg, [...] (PYRIDIUM) tablet 200 mg polyethylene glycol 3350 28424 mg powder for oral solution (4 sources) [...] Starting on Thu07/09/21 at 2000, Post-op Psyllium (9 sources) Start: 02-17-2023 Metamucil Oral, Daily, Refills(s) [...] tablet (20 sources) HMG-CoA Reductase Inhibitor Start: 07-09-2021 take 1 tablet by mouth at bedtime rosuvastatin (Crestor) 40 MG tablet Take 40 mg by mouth at bedtime. 02/10/2023 Active Start: 06-26-2021 take 40 mg by mouth [...] Active Start: 02-13-2017 take 1 capsule by [facility] once daily tamsulosin (FLOMAX) 0.4 MG capsule Take 1 capsule by mouth daily 90 capsule 3 09/23/2023 Active varenicline 1 mg oral tablet (10 sources) [...] disease (20 sources) Atherosclerotic heart disease of cahto coronary artery without angina pectoris; Translations: [History of myocardial infarction] Onset: 11-10-2017 Resolved: 02-10-2023 11-04-2021 Chronic Disorders of lipid metabolism (20 sources) Pure hyperglyceridemia; Translations: [Hyperlipidemia] Onset: 11-10-2017 [...] of urine, unspecified] Episodic Hyperplasia of prostate (20 sources) Benign prostatic hypertrophy with outflow obstruction; [...] FORMS OF DYSPNEA] Onset: 12-18-2021 Episodic Other lower respiratory disease (2 sources) Shortness of breath; Translations: [Shortness of breath] Onset: 12-19-2024 Episodic Other nutritional; endocrine; and metabolic disorders (1 source) Hypomagnesemia; Translations: [HYPOMAGNESEMIA] Onset: 11-10-2017 Chronic Other nutritional; endocrine; and metabolic disorders (1 source) Decrease in appetite; Translations: [Anorexia] Episodic Other screening for suspected conditions (not mental disorders or infectious disease) (4 sources) Encounter for screening for malignant neoplasm of prostate; Translations: [Encounter for screening for malignant neoplasm of rectum] Onset: 05-27-2021 08-29-2024 Episodic Other upper respiratory disease (1 source) [...] Onset: 09-28-2018 Episodic Other aftercare (1 source) jail (current) use of antithrombotics/an tiplatelets; Translations: [[facility] ANTITHROMBOT/ANTIP LATLETS] Onset: 07-19-2021 Episodic Other aftercare (1 source) jail (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; Translations: [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 SCIENCE 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 OFFICER CURRENT USE OF ASPIRIN] Onset: 07-19-2021 Episodic Other aftercare (1 source) Other terminal worker (current) drug therapy; Translations: [OTH LIFE SCIENCE TECHNICAL OFFICER CURRENT DRUG THERAPY] Onset: 06-25-2021 Episodic Other aftercare (5 sources) Drug therapy finding; Translations: [terminal gauger supervisor (current) use of anticoagulants] Onset: 12-12-2022 02-10-2023 Episodic Other aftercare (2 sources) Patient encounter status; Translations: [terminal gauger supervisor (current) use of antithrombotics/an tiplatelets] Onset: 12-12-2022 02-10-2023 Episodic Other aftercare (3 sources) Long-term current use of drug therapy; Translations: [terminal gauger supervisor (current) use of antithrombotics/an tiplatelets] Onset: 12-12-2022 [...] Translations: [Tobacco use] Onset: 09-28-2018 02-10-2023 Episodic Substance-related disorders (14 sources) Nicotine dependence, cigarettes, uncomplicated; Translations: [Smoker] Onset: 11-10-2017 Resolved: 02-10-2023 11-04-2021 Chronic Unclassified (1 source) COUGH, UNSPECIFIED; Translations: [COUGH, UNSPECIFIED] Onset: 04-13-2021 Results Test Name Value Interpretation Reference Range Facility Office Visiton 12-19-2024 Follow-up visit [id number] Ronnell Peres 1955 M Date Provider Department Center 12/19/2024 MICHELLE VILLALBA CARD [facility] Family History Problem Relation Age of Onset Heart attack Mother Family Status - Relation Status Age at Mother Level of Service:20848 SC OFFICE/OUTPATIENT ESTABLISHED MOD MDM 30 MIN Normal [facility] XR ABDOMEN (KUB) (SINGLE AP VIEW)on 08-31-2024 XR ABDOMEN (KUB) (SINGLE AP VIEW) EXAMINATION: ONE SUPINE XRAY VIEW(S) OF THE ABDOMEN 08/29/2024 12:02 pm COMPARISON: Study from August 24, 2023 is not available to be viewed on PACS. Reference is made to the prior report. HISTORY: ORDERING SYSTEM PROVIDED HISTORY: Renal stone TECHNOLOGIST PROVIDED HISTORY: kidney stones FINDINGS: Gas in nondilated stomach, small bowel and colon. . No urinary tract stones identified. Degenerative changes are seen within the hips bilateral IMPRESSION: Unremarkable appearing abdomen Interpreted by: Danette Rodriguez MD Signed by: Danette Rodriguez MD 08/31/24 Final result Normal [facility] XR Abdomen Single viewon Unremarkable appeari ng abdomen [facility] RIS CONSOLIDATED EXAMINATION: ONE SUPINE XRAY VIEW(S) OF THE ABDOMEN 08/29/2024 12:02 pm COMPARISON: Study from August 24, 2023 is not available to be viewed on PACS. Reference is made to the prior report. HISTORY: ORDERING SYSTEM PROVIDED HISTORY: Renal stone TECHNOLOGIST PROVIDED HISTORY: kidney stones FINDINGS: Gas in nondilated stomach, small bowel and colon. . No urinary tract stones identified. Degenerative changes are seen within the hips bilateral [facility] RIS CONSOLIDATED Danette Rodriguez MD - 08/31/2024 EXAMINATION: ONE SUPINE XRAY VIEW(S) OF THE ABDOMEN 08/29/2024 12:02 pm COMPARISON: Study from August 24, 2023 is not available to be viewed on PACS. Reference is made to the prior report. HISTORY: ORDERING SYSTEM PROVIDED HISTORY: Renal stone TECHNOLOGIST PROVIDED HISTORY: kidney stones FINDINGS: Gas in nondilated stomach, small bowel and colon. . No urinary tract stones identified. Degenerative changes are seen within the hips bilateral IMPRESSION: Unremarkable appearing abdomen [facility] mParticle XR Abdomen Single viewOrdere d By: Danette Rodriguez on 08-31-2024 [facility] Work Phone: PSA Screeningon 08-29-2024 Prostate specific Ag [Mass/Vol] 1.8 ng/mL 0.00 - 4.00 ng/mL [facility] Comment on above: The Hari ECLIA as say is used. Results obtained with different assay methods cannot be used interchangeably. [facility] PSA, Screeningon 08-29-2024 Prostatic Spec. Ag 1.80 ng/mL Normal 0.00-4.00 [facility] Comment on above: Result Comment: The Hari ECLIA assay is used. Results obtained with different assay methods cannot be used interchangeably. Performed By: #### P SAS #### [facility] [employer] [address] [place] [id number] Supervisor Ditching: Austin Montes MD XR Abdomen Single viewon Radiology Study observation (narrative) [facility] Office Visiton 06-22-2024 Follow-up visit [id number] Ronnell Peres 1955 M Date Provider Department Center 06/22/2024 3848-[id number] FORREST CARD [facility] Family History Problem Relation Age of Onset Heart attack Mother Family Status - Relation Status Age at Mother Level of Service:18913 SC OFFICE/OUTPATIENT ESTABLISHED LOW MDM 20 MIN Normal [facility] Ambulatory Visit Summaryon 0 09-23-2023 Ambulatory Visit Summary RONNELL PERES :1955 Visit Date:09/23/2023 Ambulatory Visit Instructions Your Care Team Attending Physician - LOW AVILA, Aaron White Primary Care Physician - Ev AVILA, Dylan This Is Your Medications List amlodipine (Norvasc [...] choosing us for your care. Shira Avila [facility] General Surgery Office/Clini c Noteon 09-23-2023 General [...] - Not Given Patient Refuses Normal Avila [facility] Comment on above: Result Comment: Elec [...] vaccine, inactivated - Not Given Patient Refuses [facility] Comment on above: Result Comment: Elec tronically Signed By: LOW AVILA, Aaron White\.br\Date and Time Signed: 09/13/23 15:45 EDT Ambulatory [...] PM EDT With: Aaron KELSEY MD Where: [facility] General Surgery Nevin Normal [facility] Operative Reporton Operative Report [id number]#1.00TIFF [facility] Pathology Noteon 09-07-2023 Pathology Note [id number]#1.00TIFF Normal [facility] [place] 09-02-2023 L Specimen: [id number] eceived: 09/03/23 Status: ALLAN Francis Num: [id number] Spec Type: Surgical Subm Dr: Aaron Kelsey MD FACS Tissues: A Hernia Sac (INGUINAL HERNIA) Procedures: HE, Gross/Micro L2 Age/ Patient Sex Location Account Attending Physician Ronnell Peres 68/M LABELL [id number] Aaron Kelsey MD FACS SPEC NUM: [id number] RECD: 09/03/23 STATUS: ALLAN FRANCIS NUM: [id number] AVA: 09/02/23- SUBM DR: Aaron Kelsey MD FACS ENTERED: 09/03/[address] [facility] [address]: Nevin,Tosin SPEC TYPE: Surgical DEPT: JESSICA LOREDO ORDERED: [...] specimen reveals unremarkable, slightly hemorrhagic cut surfaces. Stone Carriage Operator sections are submitted in A1. Clinical history: Inguinal hernia TW CPT Codes 18469 -- -- Specimen: [id number] Received: 09/03/23 Status: ALLAN Meyerizaiah Num: [id number] Spec Type: Surgical Subm Dr: Aaron Kelsey MD FACS Tissues: A Hernia Sac (INGUINAL HERNIA) Procedures: HE, Titus/Marixa L2 -- Patient: Ronnell Peres [id number] (Continued) -- Signed (signature on file) Christianne Ashraf MD 09/07/23813 Normal [facility] Insurance Correspondenceon 0 08-21-2023 Insurance Correspondence [id number]#1.00TIFF Normal [facility] RAD - MISCon 08-21-2023 RAD - MIS [id number]#1.00TIFF Normal [facility] RAD - MISCon 08-20-2023 RAD - MIS [id number]#1.00TIFF Normal [facility] Consent for Procedure/Surger yon 07-21-2023 Consent for Procedure/Surgery [id number]#1.00TIFF Normal [facility] Ambulatory Visit Summaryon 0 07-17-2023 Ambulatory Visit [...] for choosing us for your care. Shira [facility] General Surgery Office/Clini c Noteon 07-17-2023 General [...] Illness 68 yo male with h/o CAD, TN, htn, hyperlipidemia, COPD, presents for reevaluation of [...] sleep Allergies lisinopri (more content not included)... Normal [facility] Comment on above: Result Comment: Elec tronically Signed By: LOW AVILA, Aaron Valerio\Date and Time Signed: 07/17/23 18:57 EST [employer] 07-13-2023 Forms [id number]#1.00TIFF [facility] IntraOperative Documentson 1 IntraOperative Documents [id number]#1.00TIFF [facility] Consent for Anesthesiaon Consent for Anesthesia [id number]#1.00TIFF [facility] Discharge Instructionson Discharge Instructions [id number]#1.00TIFF [facility] IntraOperative Documentson 1 IntraOperative Documents [id number]#1.00TIFF [facility] Physician Orderon 02-20-2023 Physician Order [id number]#1.00TIFF [facility] Preoperative Documentson Preoperative Documents [id number]#1.00TIFF [facility] Progress Note-Physicianon Progress Note-Physician Patient: RONNELL PERES Age: 68 years Sex: Male : 1955 Associated Diagnoses: None Author: MD Ceferino, Jossie Lu Postoperative Information Postoperative disposition: Postoperative disposition: To PACU. Optimetrix number: Optimetrix number [id number]. Anesthetic utilized: General. Health Status Allergies: Allergic [...] when meets criteria ( To home ). [facility] Comment on above: Result Comment: Elec tronically Signed By: MD Ceferino, Jossie Lu\.br\Date and Time Signed: 02/20/23 14:58 EDT Progress Note-Physician Patient: RONNELL PERES Age: 68 years Sex: Male : 1955 Associated Diagnoses: None Author: MD Ceferino, Jossie Lu Preoperative Information Time patient last ate or [...] Daily, # 30 cap(s), Refills(s) 3, Pharmacy: [facility], 168, cm, 06/26/21 9:30:00 EST, Height/Length [...] History of kidney stones / SNOMED CT 0322278131 / Confirmed Chronic obstructive pulmonary disease / SNOMED CT 16049698 / Confirmed History of myocardial infarction / SNOMED CT 6020307856 / Confirmed Hyperlipidemia / SNOMED CT 30441317 / Confirmed Hypertension / SNOMED CT 5478010183 / Confirmed Kidney stone / SNOMED CT 009999890 / Confirmed BPH with urinary obstruction / SNOMED CT 0902357174 / Confirmed Ureteral stone with hydronephrosis / SNOMED CT 71867350 / Confirmed Anticoagulated / SNOMED CT 813695683 / Confirmed GERD (gastroesophageal reflux disease) / SNOMED CT 927177140 / Confirmed Smoker / SNOMED CT 297617364 / Confirmed Alcohol abuse / SNOMED CT 38898471 / Confirmed BMI 22.0-22.9, adult / SNOMED CT 6168664113 / Confirmed Reducible left inguinal hernia / SNOMED CT 236745174 / Confirmed Antiplatelet or antithrombotic long-term use / SNOMED CT 123407417 / Confirmed Tobacco use / SNOMED CT 476684971 / Confirmed Resolved: Anxiety / SNOMED CT 15460106 Histories Past Medical History: Resolved Anxiety (38302897): Resolved. Family History: Primary malignant neoplasm of lung Grandparent Stroke Mother Cirrhosis of liver Father Aneurysm Mother Procedure history: Right Nasal cautery (895201033) on 02/19/2023 at 68 Years. Cystoscopic removal of ureteric stent (418569568) on 03/05/2017 at 62 Years. Cystoscope/stone extraction/Rt. stent replacement (34969881) on 02/23/2017 at 62 Years. Cystoscope/RG/ureteroscopy/Rt. stent placement (14743658) on 02/16/2017 at 62 Years. Placement of stent in cardiac conduit (4277790244). Lithotripsy (441210658). Insertion of renal artery stent (0325107571). Nasal cautery (963484195). Social History Social & Psychosocial Habits Alcohol [...] results Radiology results ECG interpretation Condition Plan [place] [employer] Anesthesiologists (ASA) physical status classification: Class III. Anesthetic Preoperative Plan Anesthesia: General. . Anesthetic plan, risks, benefits, and alternatives discussed with the patient and/or family. Risks discussed: nausea, vomiting, headache, sore throat, dental injury, serious complications. Patient verbalized understanding. Communication: face to face with patient 5 minutes. [facility] Comment on above: Result Comment: Elec tronically Signed By: MD Ceferino, Jossie Lu\.br\Date and Time Signed: 02/20/23 14:56 EDT Consent for Procedure/Surger yon 02-19-2023 Consent for Procedure/Surgery [id number]#1.00TIFF [facility] Consent for Treatmenton 02-08 Consent for Treatment [id number]#1.00TIFF [facility] Discharge Instructionson Discharge Instructions RONNELL PERES :1955 [...] completing your survey. Thank you for choosing [facility]. Patient Portal You may access all of your results and other medical record information on our secure patient portal. If you are not signed up for this yet, please contact [employer] at [phone] to get signed up today. Patient Name: RONNELL PERES I have received this information and my questions have been answered. Patient/Stone Carriage Operator Name: Patient/Stone Carriage Operator Signature: __ (more content not included)... Normal [facility] Comment on above: Result Comment: Elec tronically Signed By: Jeramie HADLEY, Christian Dhaliwal\.br\Date and Time Signed: 02/19/23 13:08 EDT H&P Updateon 02-19-2023 H&P Update [id number]#1.00TIFF Normal [facility] Inpatient Patient Summaryon 02-19-2023 Inpatient Patient Summary [place] [id number] [facility] Clinical Discharge Instructions PERSON INFORMATION Name: [...] Mouth 2 times a day. Comment: Normal [facility] Main OR Intraoperative Recor don 02-19-2023 Main OR Intraoperative Record IntraOp Document Type FT Summary Primary Physician: Portillo Ludwig MD Finalized Date/Time: 02/19/23 13:57:10 Pt. Name: RONNELL PERES /Sex: 1955 Male Med Rec #: [id number] Physician: Marin AVILA, Portillo [employer] #: [id number] Pt. Type: A Room/Bed: [place] [address] Admit/Disch: 02/19/23 08:47:56 - 02/19/23 13:45:00 Institution: Case Times FT Entry 1 Patient Times In Room 02/19/23 11:29:00 Out Room 02/19/23 11:58:00 Procedure Times Start 02/19/23 11:43:00 Stop 02/19/23 11:49:00 Anesthesia Times Start 02/19/23 11:29:00 Stop 02/19/23 11:58:00 Last Modified By: Nicolás HADLEY, Andrew Velasco 02/19/23 11:57:33 General Comments: 02/19/23 Chart opened to review and send charges [facility]oth CSFA Case Attendance FT Entry 1 Entry 2 Entry 3 Case Attendee Orlando NAPOLES, VIGOUREUX PRINTER, Queen Marin AVILA, Gagan Kline Role Performed VIGOUREUX PRINTER Surgeon - Primary Glass Bulb Silverer - Primary Time In 02/19/23 11:29:00 02/19/23 11:41:00 02/19/23 11:29:00 Time Out 02/19/23 11:58:00 02/19/23 11:50:00 02/19/23 11:58:00 Procedure NASAL ENDOSCOPY(Right) NASAL ENDOSCOPY(Right) NASAL ENDOSCOPY(Right) Comments [facility] ANESTHESIA HOUSE DETECTIVE Last Modified By: Ivet TIRE FIXER, Evelina Monzon RN, Andrew Monzon RN, Andrew Velasco 02/19/23 13:54:59 02/19/23 12:09:31 02/19/23 12:09:31 Entry 4 Entry 5 Entry 6 Case Attendee Zonia Ribera TIRE FIXER, Justice Monzon RN, Andrew Velasco Role Performed Scrub - Primary Scrub - Relief Glass Bulb Silverer - Primary Time In 02/19/23 11:29:00 02/19/23 11:38:00 02/19/23 11:47:00 Time Out 02/19/23 11:39:00 10/12/23 11:58:00 02/19/23 11:58:00 Procedure NASAL ENDOSCOPY(Right) NASAL ENDOSCOPY(Right) NASAL ENDOSCOPY(Right) Comments Last Modified By: Andrew Monzon RN, RN, Andrea L Krupp RN, Andrea L 02/19/23 12:09:31 02/19/23 12:09:31 02/19/23 12:09:32 Perioperative [...] Time Out Orlando NAPOLES, FRANCES, Queen Lawson Wolf, Portillo Ludwig MD, Sweene, Terry T, Wilhelm CST, Benjamin Time Out Complete 02/19/23 11:42:00 Outcomes Met? [...] and tissue Entry 1 Skin Integrity Intact, Cullen, Warm, and Skin Abnormality No Dry Outcomes [...] Procedure NASA (more content not included)... Normal [facility] Main OR PACU I Recordon 02-08 Main OR PACU I Record PACU Phase I Document Type FT Summary Primary Physician: Portillo Ludwig MD Finalized Date/Time: 02/19/23 12:35:40 Pt. Name: RONNELL PERES Elizabeth Shafer./Sex: 1955 Male Med Rec #: [id number] Physician: Portillo Ludwig MD Financial #: [id number] Pt. Type: A Room/Bed: [facility] Admit/Disch: 02/19/23 08:47:56 - Institution: Case Times [...] By: Sherry Brady RN 02/19/23 12:35 Normal [facility] Main OR PACU II Recordon Main OR PACU II Record PACU Phase II Document Type FT Summary Primary Physician: Portillo Ludwig MD Finalized Date/Time: 02/19/23 13:43:43 Pt. Name: NATO PERESMiles Johnson D.O.B./Sex: 1955 Male Med Rec #: [id number] Physician: Portillo Ludwig MD Financial #: [id number] Pt. Type: A Room/Bed: [place] [address] Admit/Disch: 02/19/23 08:47:56 - Institution: Case Times [...] By: Christian Bobo RN 02/19/23 13:43 Normal [facility] Monitor Recordon 02-19-2023 Monitor Record [id number]#1.00TIFF [facility] Operative Reporton Operative Report SURGERY DATE: 2022 [...] condition. Portillo Ludwig Jr., M.D. Dictated: 02/19/2023 [id number] Transcribed: 02/19/2023 cc:Dylan Zaidi M.D. [facility] Comment on above: Result Comment: Elec tronically Signed By: Portillo Ludwig MD\.br\Date and Time Signed: 02/19/23 15:00 EDT Outpatient Surgery Discharge Instructionon 02-19-2023 Outpatient Surgery Discharge Instruction [address] [address] Patient Discharge Instructions PERSON INFORMATION Name: RONNELL [...] to serve you. Thank you for choosing [facility] HERE ARE THE MEDICATION CHANGES THAT OCCURRED [...] PATIENT EDUCATION INFORMATION Instructions: Medication Leaflets: Normal [facility] Patient Education - Texton 1 Patient Education - Text Normal [facility] XR Chest 2 Viewson 3 XR Chest [...] mGy = na DAP = na Normal [facility] Auto Diffon 02-17-2023 Basophils/100 WBC (Bld) 1.0 % Normal 0.0-2.0 [facility] Comment on above: Order Comment: Order Added by Discern Expert. Performed By: #### 2 [id number], [id number] #### [facility] [address] [place] [id number] Basophils/Leukocy keegan Auto (Bld) [Pure # fraction] 0.1 E9/L Normal 0.0-0.2 [facility] Comment on above: Order Comment: Order Added by Discern Expert. Performed By: #### 2 [id number], [id number] #### [facility] [address] [place] [address] 65551 Eosinophils/100 WBC (Bld) 1.4 % Normal 0.0-8.0 [facility] Comment on above: Order Comment: Order Added by Discern Expert. Performed By: #### 2 [id number], [id number] #### [facility] [address] [place] [address] 19905 Eosinophils/Leuko cytes Auto (Bld) [Pure # fraction] 0.1 E9/L Normal 0.0-0.5 [facility] Comment on above: Order Comment: Order Added by Discern Expert. Performed By: #### 2 [id number], [id number] #### [facility] [address] [place] [address] 66899 Lymphocytes/100 WBC (Bld) 25.0 % Normal 14.0-50.0 [facility] Comment on above: Order Comment: Order Added by Discern Expert. Performed By: #### 2 [id number], [id number] #### [facility] [address] [place] [address] 66436 Lymphocytes/Leuko cytes Auto (Bld) [Pure # fraction] 1.8 E9/L Normal 1.0-4.0 [facility] Comment on above: Order Comment: Order Added by Discern Expert. Performed By: #### 2 [id number], [id number] #### [facility] [address] [place] [address] 77119 Monocytes/100 WBC (Bld) 5.5 % Normal 4.0-14.0 [facility] Comment on above: Order Comment: Order Added by Discern Expert. Performed By: #### 2 [id number], [id number] #### [facility] [address] [place] [address] Monocytes/Leukocy keegan Auto (Bld) [Pure # fraction] 0.4 E9/L Normal 0.2-1.0 [facility] Comment on above: Order Comment: Order Added by Discern Expert. Performed By: #### 2 [id number], [id number] #### [facility] [address] [place] [address] Neutrophils/100 WBC (Bld) 67.1 % Normal 36.0-75.0 [facility] Comment on above: Order Comment: Order Added by Discern Expert. Performed By: #### 2 [id number], [id number] #### [facility] [address] [place] [address] Neutrophils/Leuko cytes Auto (Bld) [Pure # fraction] 4.8 E9/L Normal 2.0-7.5 [facility] Comment on above: Order Comment: Order Added by Discern Expert. Performed By: #### 2 911221, [id number] #### [facility] [address] [place] [address] BUNon 02-17-2023 Urea nitrogen [Mass/Vol] 16 mg/dL Normal 5-21 [facility] Comment on above: Performed By: #### 1 [id number], [id number], 5355747, [id number], [id number] ####[facility] [address] [place] [address] CBC w/ Auto Diffon Erythrocyte distribution width (RBC) [Ratio] 13.4 % Normal 10.9-14.2 [facility] Comment on above: Performed By: #### 2 665181, [id number] #### [facility] [address] [place] [address] Hematocrit (Bld) [Volume fraction] 39.3 % Normal 37.7-49.0 [facility] Comment on above: Performed By: #### 2 [id number], [id number] #### [facility] [address] [place] [address] Hemoglobin (Bld) [Mass/Vol] 13.7 g/dL Normal 13.5-17.5 [facility] Comment on above: Performed By: #### 2 152499, [id number] #### [facility] [address] [place] [address] 62634 MCH (RBC) [Entitic mass] 29.2 pg Normal 27.0-34.0 [facility] Comment on above: Performed By: #### 2 904916, 0680465 #### [facility] [address] [place] [address] MCHC (RBC) [Mass/Vol] 34.7 g/dL Normal 31.4-36.0 [facility] Comment on above: Performed By: #### 2 368093, [id number] #### [facility] [address] [place] [address] 82653 MCV (RBC) [Entitic vol] 84.1 fL Normal 80.0-100.0 [facility] Comment on above: Performed By: #### 2 789858, [id number] #### [facility] [address] [place] [address] 74142 Platelet mean volume (Bld) [Entitic vol] 8.4 fL Normal 6.4-10.8 [facility] Comment on above: Performed By: #### 2 060436, 0986113 #### [facility] [address] [place] [address] 24798 Platelets (Bld) [#/Vol] 257.0 E9/L Normal 150.0-500. 0 [facility] Comment on above: Performed By: #### 2 [id number], [id number] #### [facility] [address] [place] [address] 27699 RBC (Bld) [#/Vol] 4.7 E12/L Normal 4.3-5.9 [facility] Comment on above: Performed By: #### 2 108603, [id number] #### [facility] [address] [place] [address] 23459 WBC corrected for nucl RBC Auto (Bld) [#/Vol] 7.2 E9/L Normal 4.0-11.0 [facility] Comment on above: Performed By: #### 2 877869, [id number] #### [facility] [address] [place] [address] CHEMISTRYOrdered By: SYSTEM SYSTEM on 02-17-2023 Anion gap [Moles/Vol] 10 mmol/L Normal 6 - 16 mEq/L [facility] Chloride [Moles/Vol] 112 mmol/L High 101 - 111 mmol/L [facility] CO2 [Moles/Vol] 24 mmol/L Normal 21 - 31 mmol/L [facility] Creatinine [Mass/Vol] 0.8 mg/dL Normal 0.5 - 1.3 mg/dL [facility] [place] GFR/1.73 sq M.predicted among non-blacks MDRD (S/P/Bld) [Vol rate/Area] 96 mL/min/1.73 m2 Normal >=59mL/min /1.73 m2 [facility] Comment on above: Interpretive Data: C hronic kidney disease could be indicated at eGFR's of less than 60 mL/min/1.73m2. Kidney failure is indicated at less than 15 mL/min/1.73m2. Glucose [Mass/Vol] 129 mg/dL Normal 55 - 199 mg/dL [facility] Potassium [Moles/Vol] 3.9 mmol/L Normal 3.5 - 5.3 mmol/L [facility] Sodium [Moles/Vol] 142 mmol/L Normal 135 - 145 mmol/L [facility] Urea nitrogen [Mass/Vol] 16 mg/dL Normal 5 - 21 mg/dL [facility] Remisol Consent for Treatmenton 02-08 Consent for Treatment [id number] Normal [facility] Creatinineon 02-17-2023 Creatinine [Mass/Vol] 0.8 mg/dL Normal 0.5-1.3 [facility] Comment on above: Performed By: #### 1 [id number], [id number], 6464326, 0090283, 5521603 ####[facility] [address] [place] [address] Glucoseon 02-17-2023 Glucose [Mass/Vol] 129 mg/dL Normal 55-199 [facility] Comment on above: Performed By: #### 1 [id number], [id number], 5554406, 8526640, 0285364 ####[facility] [address] [place] [address] Lyteson 02-17-2023 Anion gap [Moles/Vol] 10 mmol/L Normal 6-16 [facility] Comment on above: Performed By: #### 1 [id number], 8324178, 1483616, 8597746, 0324461 ####[facility] [address] [place] [address] Chloride [Moles/Vol] 112 mmol/L High 101-111 [facility] Comment on above: Performed By: #### 1 0537502, 2985704, 4558354, 1849814, 8477577 ####[facility] [address] [place] [place] [address] CO2 [Moles/Vol] 24 mmol/L Normal 21-31 [facility] Comment on above: Performed By: #### 1 8173458, 7940172, 5179826, 7684659, 8562605 ####[facility] [address] [place] [address] Potassium [Moles/Vol] 3.9 mmol/L Normal 3.5-5.3 [facility] Comment on above: Performed By: #### 1 [id number], 4864098, 3982127, 0389015, 0099241 ####[facility] [address] [place] [address] Sodium [Moles/Vol] 142 mmol/L Normal 135-145 [facility] Comment on above: Performed By: #### 1 1339496, 0520373, 4528042, 7483293, 8744552 ####[facility] [address] [place] [address] eGFRon 02-17-2023 GFR/1.73 sq M.predicted among non-blacks MDRD (S/P/Bld) [Vol rate/Area] 96 mL/min/1.73 m2 Normal >=59 [facility] Comment on above: Order Comment: Order added by Discern Expert. Result Comment: [employer] blanka kidney disease could be indicated at eGFR's of less than 60 mL/min/1.73m2. Kidney failure is indicated at less than 15 mL/min/1.73m2. Performed By: #### 1 [id number], 3751481, 2200538, 0455691, 4494887 ####[facility] [address] [place] [address] CBC with Auto Differentialon 01-25-2023 Basophils (Bld) [#/Vol] 0.03 10*3/uL [facility] Basophils/100 WBC (Bld) 0 % 0 - 2 % [facility] Eosinophils (Bld) [#/Vol] 0.04 10*3/uL [facility] Eosinophils/100 WBC (Bld) 1 % 1 - 4 % [facility] Erythrocyte distribution width (RBC) [Ratio] 12.6 % 11.8 - 14.4 % [facility] Hematocrit (Bld) [Volume fraction] 43.7 % 40.7 - 50.3 % [facility] Hemoglobin (Bld) [Mass/Vol] 15.2 g/dL 13.0 - 17.0 g/dL [facility] Immature granulocytes (Bld) [#/Vol] [facility] Immature granulocytes/100 WBC (Bld) 0 % 0 [facility] Interpretation and review of laboratory results Abnormal [facility] Lymphocytes/100 WBC (Bld) 21 % Low 24 - 43 % [facility] Lymphocytes/100 WBC (Bld) 1.64 % [facility] MCH (RBC) [Entitic mass] 29.2 pg 25.2 - 33.5 pg [facility] MCHC (RBC) [Mass/Vol] 34.8 g/dL 28.4 - 34.8 g/dL [facility] MCV (RBC) [Entitic vol] 83.9 fL 82.6 - 102.9 fL [facility] Monocytes/100 WBC (Bld) 6 % 3 - 12 % [facility] Monocytes/100 WBC (Bld) 0.50 % [facility] Neutrophils/100 WBC (Bld) 72 % High 36 - 65 % [facility] Nucleated RBC/100 WBC (Bld) [Ratio] 0.0 % 0.0 per 100 WBC [facility] Platelet mean volume (Bld) [Entitic vol] 9.7 fL 8.1 - 13.5 fL [facility] Platelets (Bld) [#/Vol] 276 10*3/uL [facility] RBC (Bld) [#/Vol] 5.21 10*6/uL 4.21 - 5.77 m/uL [facility] Segmented neutrophils/100 WBC (Bld) 5.71 % [facility] WBC other (Bld) [#/Vol] 7.9 [facility] CMPon 01-25-2023 Albumin [Mass/Vol] 5.0 g/dL 3.5 - 5.2 g/dL [facility] Albumin/Globulin [Mass ratio] 1.9 {ratio} 1.0 - 2.5 [facility] ALP [Catalytic activity/Vol] 74 U/L 40 - 129 U/L [facility] ALT [Catalytic activity/Vol] 31 U/L 5 - 41 U/L [facility] Anion gap [Moles/Vol] 11 mmol/L 9 - 17 mmol/L [facility] AST [Catalytic activity/Vol] 26 U/L NINF - 40 U/L [facility] Bilirubin [Mass/Vol] 0.5 mg/dL 0.3 - 1.2 mg/dL [facility] Calcium [Mass/Vol] 9.7 mg/dL 8.6 - 10.4 mg/dL [facility] Chloride [Moles/Vol] 102 mmol/L 98 - 107 mmol/L [facility] CO2 [Moles/Vol] 23 mmol/L 20 - 31 mmol/L [facility] Creatinine [Mass/Vol] 0.6 mg/dL Low 0.7 - 1.2 mg/dL [facility] GFR/1.73 sq M.predicted MDRD (S/P/Bld) [Vol rate/Area] - PINF [facility] Comment on above: These results are not [...] 108 mg/dL High 70 - 99 mg/dL [facility] Interpretation and review of laboratory results Abnormal [facility] Potassium [Moles/Vol] 4.0 mmol/L 3.7 - 5.3 mmol/L [facility] Protein [Mass/Vol] 7.7 g/dL 6.4 - 8.3 g/dL [facility] Sodium [Moles/Vol] 136 mmol/L 135 - 144 mmol/L [facility] Urea nitrogen [Mass/Vol] 14 mg/dL 8 - 23 mg/dL [facility] Urea nitrogen/Creatini ne [Mass ratio] 23 mg/mg High 9 - 20 [facility] Protime-INRon 01-25-2023 INR Coag (PPP) [Relative time] 0.9 {INR} [facility] Comment on above: Therapeutic Range: Moderate Anticoagulant Intensity: INR = 2.0-3.0 High Anticoagulant Intensity: INR = 2.5-3.5 PT Coag (PPP) [Time] 12.5 s [facility] Troponinon 01-25-2023 Troponin I.cardiac High sensitivity method [Mass/Vol] 11 ng/L 0 - 22 ng/L [facility] Comment on above: High Sensitivity Tro ponin values cannot be compared with other Troponin methodologies. [facility] XR CHEST PORTABLEon 01-26-20 23 No radiographic evid ence of acute pulmonary disease. [facility] CONSOLIDATED EXAMINATION: ONE XRAY VIEW OF THE CHEST 01/25/2023 12:09 pm COMPARISON: None. HISTORY: ORDERING SYSTEM PROVIDED HISTORY: chest pain TECHNOLOGIST PROVIDED HISTORY: chest pain FINDINGS: HEART/MEDIASTINUM: The cardiomediastinal silhouette is within normal limits. PLEURA/LUNGS: There are no focal consolidations or pleural effusions. There is no appreciable pneumothorax. BONES/SOFT TISSUE: No acute abnormality. [facility] CONSOLIDATED Jackson Nichole MD - 01/25/2023 [...] No radiographic evidence of acute pulmonary disease. [facility] Study observation (narrative) [facility] XR CHEST PORTABLEOrdered By: Jackson Nichole on 01-25-2023 [facility] Work Phone: General Surgery Office/Clini c Noteon 10-26-2022 General [...] 67 yo male with h/o CAD, s/p TN, on Plavix, COPD, htn, hyperlipidemia, bph, here [...] 2. Antiplatelet or antithrombotic long-term use (Z79.02: jail (current) use of antithrombotics/antiplatelets) hold 5 days [...] mg o (more content not included)... Normal [facility] Comment on above: Result Comment: Elec tronically [...] no longer receiving treatment for. Anxiety Normal [facility] ECHOCARDIO M/2D COMPLETEon 0 12-18-2021 ECHOCARDIO M/2D COMPLETE Patient: RONNELL PERES Exam Date: 12/18/2021 : 1955 Gender:M Ordering : CAM FORREST Admission #: [id number] Family : DR DYLAN ZAIDI . Order #: [id number] CLICK HERE TO VIEW EXAM ECHOCARDIOGRAM REPORT [...] Pulliam M.D. on 12/18/2021 at 20:12 Normal [facility] NM STRESS/REST MULTIon 12-16 NM STRESS/REST MULTI Patient: RONNELL PERES Exam Date: 12/16/2021 : 1955 Gender:M Ordering : CAM FORREST Admission #: [id number] Family : Order #: [id number] CLICK HERE TO VIEW EXAM RADIOLOGY REPORT [...] MD on 12/17/2021 at 11:40 Normal [facility] XR ABDOMEN (KUB) (SINGLE AP VIEW)on 08-20-2021 Nonobstructive bowel gas pattern. No definite renal or ureteral stones. [facility] CONSOLIDATED EXAMINATION: ONE SUPINE XRAY VIEW(S) OF THE ABDOMEN 08/20/2021 8:27 am COMPARISON: None. HISTORY: ORDERING SYSTEM PROVIDED HISTORY: Ureteral stone FINDINGS: Bowel gas pattern nonobstructed. Renal shadows partially obscured by bowel gas and fecal debris. No definite renal or ureteral stones. No acute osseous abnormality. [facility] CONSOLIDATED Romario Fong DO - [...] pattern. No definite renal or ureteral stones. [facility] Phone: Radiology Study observation (narrative) [facility] Phone: XR ABDOMEN (KUB) (SINGLE AP VIEW)Ordered By: Romario Fong on 08-20-2021 [facility] Phone: Basic Metabolic Panelon - Anion gap [Moles/Vol] 10 mmol/L 9 - 17 mmol/L [facility] Calcium [Mass/Vol] 9.8 mg/dL 8.6 - 10.4 mg/dL [facility] Chloride [Moles/Vol] 104 mmol/L 98 - 107 mmol/L [facility] CO2 [Moles/Vol] 25 mmol/L 20 - 31 mmol/L [facility] Creatinine [Mass/Vol] 0.68 mg/dL Low 0.70 - 1.20 mg/dL [facility] GFR >60 >60 mL/min [facility] GFR Non- >60 >60 mL/min [facility] Glucose [Mass/Vol] 95 mg/dL 70 - 99 mg/dL [facility] Interpretation and review of laboratory results Abnormal [facility] Potassium [Moles/Vol] 4.1 mmol/L 3.7 - 5.3 mmol/L [facility] Sodium [Moles/Vol] 139 mmol/L 135 - 144 mmol/L [facility] Urea nitrogen (BldV) [Mass/Vol] 14 mg/dL 8 - 23 mg/dL [facility] Urea nitrogen/Creatini ne (Bld) [Mass ratio] 21 High [facility] CT ABDOMEN PELVIS WO CONTRAS T Additional [...] left-sided bladder diverticulum containing a small calculus. [facility]IS CONSOLIDATED EXAMINATION: CT OF THE ABDOMEN [...] inguinal hernia unchanged. No acute bony abnormality. [facility] Jose Chino MD - 07/29/2021 EXAMINATION: [...] left-sided bladder diverticulum containing a small calculus. [facility] Phone: Radiology Study observation (narrative) [facility] Work Phone: CT ABDOMEN PELVIS WO CONTRAS T Additional Contrast? NoneOrdered By: Jose Espinoza on 07-29-2021 [facility] Work Phone: Laboratory - Chemistry and C hemistry - challengeon 07-29-2021 GFR/1.73 sq M.predicted MDRD (S/P/Bld) [Vol rate/Area] [facility] [employer] Comment on above: Average GFR for 60-6 9 years old: 85 mL/min/1.73sq m Chronic Kidney Disease: <60 mL/min/1.73sq m Kidney failure: <15 mL/min/1.73sq m eGFR calculated using average adult body mass. Additional eGFR calculator available at: http://www.[employer]/multiple_crcl_2011.htm Stage 1: Some kidney damage normal GFR Stage 2: Mild kidney damage GFR 60-89 Stage 3: Moderate kidney damage GFR 30-59 Stage 4: Severe kidney damage GFR 15-29 Stage 5: Severe kidney damage GFR <15 ESRD - chronic treatment by dialysis or transplant CBC AUTO DIFFon 07-18-2021 BASO # 0.0 103/ul Normal 0.0-0.1 [facility] Comment on above: Performed By: #### B ERIC PAULSON #### [facility] [address] [place] [address] Dr. Wesley Ashraf Basophils/100 WBC (Bld) 0.6 % Normal 0.2-2.0 [facility] Comment on above: Performed By: #### ERIC Cannon MP #### [facility] [address] [place] [address] Dr. Wesley Ashraf EO # 0.2 103/ul Normal 0.0-0.7 [facility] Comment on above: Performed By: #### B ERIC PAULSON #### [facility] [address] [place] [address] Dr. Wesley Ashraf Eosinophils/100 WBC (Bld) 2.5 % Normal 0.9-7.0 [facility] Comment on above: Performed By: #### B ERIC PAULSON #### [facility] [address] [place] [address] Dr. Wesley Ashraf Erythrocyte distribution width (RBC) [Ratio] 12.2 % Normal 11.0-15.0 [facility] Comment on above: Performed By: #### B KHURRAM, ERIC #### [facility] [address] [place] [address] Dr. Wesley Ashraf Hematocrit (Bld) [Volume fraction] 41.1 % Critically low 42.0-54.0 [facility] Comment on above: Performed By: #### B KHURRAM, AMADODM #### [facility] [address] [place] [address] Dr. Wesley Ashraf Hemoglobin (Bld) [Mass/Vol] 14.3 g/dL Normal 14.0-18.0 [facility] Comment on above: Performed By: #### B KHURRAM, AMADODM #### [facility] [address] [place] [address] Dr. Wesley Ashraf IG # 0.02 10e3/ul Normal 0.00-0.03 [facility] Comment on above: Performed By: #### B KHURRAM, AMADODM #### [facility] [address] [place] [address] Dr. Wesley Ashraf IG % 0.3 % Normal 0.0-0.5 [facility] Comment on above: Performed By: #### B KHURRAM, AMADODM #### [facility] [address] [place] [address] Dr. Wesley Ashraf LYMPH # 1.4 103/ul Normal 1.2-3.8 [facility] Comment on above: Performed By: #### B KHURRAM, CMADM #### [facility] [address] [place] [address] Dr. Wesley Ashraf Lymphocytes/100 WBC (Bld) 21.5 % Normal 20.5-60.0 [facility] Comment on above: Performed By: #### B KHURRAM, CMADM #### [facility] [address] [place] [address] Dr. Wesley Ashraf MANUAL DIFF REQ NO Normal [facility] Comment on above: Performed By: #### B KHURRAM, AMADODM #### [facility] [address] [address] [address] Wesley Ashraf MCH (RBC) [Entitic mass] 28.9 pg Normal 25.9-34.0 [facility] Comment on above: Performed By: #### B MP, CMADM #### [facility] [address] [place] [address] Dr. Wesley Ashraf MCHC (RBC) [Mass/Vol] 34.8 g/dL Normal 29.9-35.2 [facility] Comment on above: Performed By: #### B MP, CMADM #### [facility] [address] [place] [address] Dr. Wesley Ashraf MCV (RBC) [Entitic vol] 83.2 fL Normal 80.0-94.0 [facility] Comment on above: Performed By: #### B MP, CMADM #### [facility] [address] [place] [address] Dr. Wesley Ashraf MONO # 0.5 103/ul Normal 0.3-0.8 [facility] Comment on above: Performed By: #### B MP, CMADM #### [facility] [address] [place] [address] Dr. Wesley Ashraf Monocytes/100 WBC (Bld) 7.8 % Normal 1.7-12.0 [facility] Comment on above: Performed By: #### B MP, CMADM #### [facility] [address] [place] [address] Dr. Wesley Ashraf NEUT # 4.2 103/ul Normal 1.4-6.5 [facility] Comment on above: Performed By: #### B MP, CMADM #### [facility] [address] [place] [address] Dr. Wesley Ashraf Neutrophils/100 WBC (Bld) 67.3 % Normal 43.0-75.0 [facility] Comment on above: Performed By: #### B MP, CMADM #### [facility] [address] [place] [address] Dr. Wesley Ashraf Platelet mean volume (Bld) [Entitic vol] 9.6 fL Normal 9.5-13.5 [facility] Comment on above: Performed By: #### B KHURRAM, CMADM #### [facility] [address] [address] [address] Wesley Ashraf PLT 374 103/ul Normal 150-450 [facility] Comment on above: Performed By: #### B MP, CMADM #### [facility] [address] [address] [address] Wesley Ashraf RBC 4.94 106/ul Normal 4.70-6.10 [facility] Comment on above: Performed By: #### B KHURRAM, CMADM #### [facility] [address] [address] [address] Wesley Ashraf WBC 6.3 103/ul Normal 4.0-11.0 [facility] Comment on above: Performed By: #### B KHURRAM, CMADM #### [facility] [address] [place] [address] Dr. Wesley Ashraf PROF 14(COMP METB)on 022 Albumin [Mass/Vol] 3.7 g/dL Normal 3.5-5.0 [facility] Comment on above: Performed By: #### C MP #### [facility] [address] [place] [address] Dr. Wesley Ashraf Albumin/Globulin [Mass ratio] 0.9 {ratio} Normal [facility] Comment on above: Performed By: #### C MP #### [facility] [address] [place] [address] Dr. Wesley Ashraf ALP [Catalytic activity/Vol] 89 U/L Normal 38-126 [facility] Comment on above: Performed By: #### C MP #### [facility] [address] [address] [address] Wesley Ashraf ALT [Catalytic activity/Vol] 86 U/L Critically high 21-72 [facility] Comment on above: Performed By: #### C MP #### [facility] [address] [place] [address] Dr. Wesley Ashraf Anion gap [Moles/Vol] 14.7 mmol/L Normal [facility] Comment on above: Performed By: #### C MP #### [facility] [address] [address] [address] Wesley Ashraf AST [Catalytic activity/Vol] 40 U/L Normal 17-59 [facility] Comment on above: Performed By: #### C MP #### [facility] [address] [address] [address] Wesley Ashraf Bilirubin [Mass/Vol] 0.3 mg/dL Normal 0.2-1.3 [facility] Comment on above: Performed By: #### C MP #### [facility] [address] [address] [address] Wesley Ashraf Calcium [Mass/Vol] 9.5 mg/dL Normal 8.4-10.2 [facility] Comment on above: Performed By: #### C MP #### [facility] [address] [place] [address] Dr. Wesley Ashraf Chloride [Moles/Vol] 99 mmol/L Normal 98-107 [facility] Comment on above: Performed By: #### C MP #### [facility] [address] [address] [address] Wesley Ashraf CO2 [Moles/Vol] 21.8 mmol/L Critically low 22.0-30.0 [facility] Comment on above: Performed By: #### C MP #### [facility] [address] [address] [address] Wesley Ashraf Creatinine [Mass/Vol] 1.45 mg/dL Critically high 0.66-1.25 [facility] Comment on above: Performed By: #### C MP #### [facility] [address] [address] [address] Wesley Ashraf EGFR-AF DJIBOUTIAN 59 mL/min/1.73m2 Critically low >=60 [facility] Comment on above: Performed By: #### C MP #### [facility] [address] [address] [address] Wesley Ashraf EGFR-NON AF DJIBOUTIAN 49 mL/min/1.73m2 Critically low >=60 [facility] Comment on above: Performed By: #### C MP #### [facility] [address] [address] [address] Wesley Ashraf Globulin (S) [Mass/Vol] 4.1 g/dL Normal [facility] Comment on above: Performed By: #### C MP #### [facility] [address] [address] [address] Wesley Ashraf Glucose [Mass/Vol] 165 mg/dL Critically high 74-106 [facility] Comment on above: Performed By: #### C MP #### [facility] [address] [address] [address] Wesley Ashraf Potassium [Moles/Vol] 4.5 mmol/L Normal 3.4-5.0 [facility] Comment on above: Performed By: #### C MP #### [facility] [address] [place] [address] Dr. Wesley Ashraf Protein [Mass/Vol] 7.8 g/dL Normal 6.1-8.2 [facility] Comment on above: Performed By: #### C MP #### [facility] [address] [place] [address] Dr. Wesley Ashraf Sodium [Moles/Vol] 131 mmol/L Critically low 137-145 [facility] Comment on above: Performed By: #### C MP #### [facility] [address] [place] [address] Dr. Wesley Ashraf Urea nitrogen [Mass/Vol] 33.0 mg/dL Critically high 9.0-20.0 [facility] Comment on above: Performed By: #### C MP #### [facility] [address] [place] [address] Dr. Wesley Ashraf Urea nitrogen/Creatini ne [Mass ratio] 22.8 mg/mg Normal [facility] Comment on above: Performed By: #### C MP #### [facility] [address] [place] [address] Dr. Wesley Ashraf PROTIMEon 07-18-2021 INR Coag (PPP) [Relative time] 1.01 {INR} Normal [facility] Comment on above: Performed By: #### C BC #### [facility] [address] [place] [address] Dr. Wesley Ashraf INR GUIDELINES SEE BELOW Normal [facility] Comment on above: Result Comment: LILI RED INR: 2.0 - 3.0 CONDITIONS NOT LISTED BELOW 2.5 - 3.5 FOR PROSTHETIC HEART VALVE REPLACEMENT 2.5 - 3.5 RECURRENT THROMBOSIS Performed By: #### C BC #### [facility] [address] [place] [address] Dr. Wesley Ashraf PT Coag (PPP) [Time] 10.9 s Normal 9.0-11.6 [facility] Comment on above: Performed By: #### C BC #### [facility] [address] [place] [address] Dr. Wesley Ashraf PTTon 07-18-2021 aPTT Coag (Bld) [Time] 28.9 s Normal 22.3-36.2 [facility] Comment on above: Performed By: #### B MP, CMADM #### [facility] [address] [place] [address] Dr. Wesley Ashraf Basic Metabolic Panelon 03-0 Anion gap [Moles/Vol] 16 mmol/L 9 - 17 mmol/L [facility] Calcium [Mass/Vol] 10.1 mg/dL 8.6 - 10.4 mg/dL [facility] Chloride [Moles/Vol] 98 mmol/L 98 - 107 mmol/L [facility] CO2 [Moles/Vol] 19 mmol/L Low 20 - 31 mmol/L [facility] Creatinine [Mass/Vol] 1.18 mg/dL 0.70 - 1.20 mg/dL [facility] GFR >60 >60 mL/min [facility] GFR Non- >60 >60 mL/min [facility] Glucose [Mass/Vol] 102 mg/dL High 70 - 99 mg/dL [facility] Interpretation and review of laboratory results Abnormal [facility] Potassium [Moles/Vol] 4.6 mmol/L 3.7 - 5.3 mmol/L [facility] Sodium [Moles/Vol] 133 mmol/L Low 135 - 144 mmol/L [facility] Urea nitrogen (BldV) [Mass/Vol] 22 mg/dL 8 - 23 mg/dL [facility] Urea nitrogen/Creatini ne (Bld) [Mass ratio] 19 [facility] CBC with Auto Differentialon 07-16-2021 Absolute Eos # 0.[address] [facility] th Absolute Immature Granulocyte <0.[address] [facility] Absolute Lymph # 1.48 [facility] alth Absolute [place] # 0.54 [facility] Basophils (Bld) [#/Vol] 0.03 10*3/uL [facility] Basophils/100 WBC (Bld) 1 % 0 - 2 % [facility] Eosinophils/100 WBC (Bld) 1 % 1 - 4 % [facility] Hematocrit (Bld) [Volume fraction] 43.4 % 40.7 - 50.3 % [facility] Hemoglobin.gastro intestinal spec 1 Ql (Stl) 14.7 g/dL 13.0 - 17.0 g/dL [facility] Immature granulocytes/100 WBC (Bld) 0 % [address] [facility] Interpretation and review of laboratory results Abnormal [facility] Lymphocytes/100 WBC (Bld) 22 % Low 24 - 43 % [facility] MCH (RBC) [Entitic mass] 28.9 pg 25.2 - 33.[address] [facility] MCHC (RBC) [Mass/Vol] 33.9 g/dL 28.4 - 34.8 g/dL [facility] MCV (RBC) [Entitic vol] 85.3 fL 82.6 - 102.[address] [facility] Monocytes/100 WBC (Bld) 8 % 3 - 12 % [facility] NRBC Automated 0.0 0.0 per [address] [facility] Platelet distribution width (Bld) [Ratio] 12.0 % 11.8 - 14.4 % [facility] Platelet mean volume (Bld) [Entitic vol] 9.5 fL 8.1 - 13.[address] [facility] Platelets (Bld) [#/Vol] 376 10*3/uL [facility] RBC (Bld) [#/Vol] 5.09 10*6/uL 4.21 - 5.77 m/uL [facility] Segmented neutrophils/100 WBC (Bld) 68 % High 36 - 65 % [facility] Segs Absolute 4.55 [facility] h WBC (Bld) [#/Vol] 6.7 10*3/uL [facility] - Chemistry and C hemistry - challengeon 07-16-2021 GFR/1.73 sq M.predicted MDRD (S/P/Bld) [Vol rate/Area] [facility] Comment on above: Average GFR for 60-6 9 years old: 85 mL/min/1.73sq m Chronic Kidney Disease: <60 mL/min/1.73sq m Kidney failure: <15 mL/min/1.73sq m eGFR calculated using average adult body mass. Additional eGFR calculator available at: http://www.[employer]/multiple_crcl_2012.htm Stage 1: Some kidney damage normal GFR Stage 2: Mild kidney damage GFR 60-89 Stage 3: Moderate kidney damage GFR 30-59 Stage 4: Severe kidney damage GFR 15-29 Stage 5: Severe kidney damage GFR <15 ESRD - chronic treatment by dialysis or transplant Basic Metabolic Panel w/ Ref caren to MGon 07-11-2021 Anion gap [Moles/Vol] 11 mmol/L 9 - 17 mmol/L [facility] Calcium [Mass/Vol] 9.3 mg/dL 8.6 - 10.4 mg/dL [facility] Chloride [Moles/Vol] 104 mmol/L 98 - 107 mmol/L [facility] CO2 [Moles/Vol] 24 mmol/L 20 - 31 mmol/L [facility] Creatinine [Mass/Vol] 1.34 mg/dL High 0.70 - 1.20 mg/dL [facility] GFR >60 >60 mL/min [facility] GFR Non- 53 mL/min Low >[address] [facility] Glucose [Mass/Vol] 112 mg/dL High 70 - 99 mg/dL [facility] Interpretation and review of laboratory results Abnormal [facility] Potassium [Moles/Vol] 4.2 mmol/L 3.7 - 5.3 mmol/L [facility] Sodium [Moles/Vol] 139 mmol/L 135 - 144 mmol/L [facility] Urea nitrogen (BldV) [Mass/Vol] 15 mg/dL 8 - 23 mg/dL [facility] Urea nitrogen/Creatini ne (Bld) [Mass ratio] 11 [facility] CBC with Auto Differentialon 07-11-2021 Absolute Eos # 0.[address] [facility] th Absolute Immature Granulocyte <0.[address] [facility] Absolute Lymph # 0.98 Low [facility] alth Absolute [place] # 0.[address] [facility] lth Basophils (Bld) [#/Vol] 0.03 10*3/uL [facility] Basophils/100 WBC (Bld) 0 % 0 - 2 % [facility] Eosinophils/100 WBC (Bld) 1 % 1 - 4 % [facility] Hematocrit (Bld) [Volume fraction] 39.3 % Low 40.7 - 50.3 % [facility] Hemoglobin.gastro intestinal spec 1 Ql (Stl) 13.0 g/dL 13.0 - 17.0 g/dL [facility] Immature granulocytes/100 WBC (Bld) 0 % [address] [facility] Interpretation and review of laboratory results Abnormal [facility] Lymphocytes/100 WBC (Bld) 8 % Low 24 - 43 % [facility] MCH (RBC) [Entitic mass] 29.1 pg 25.2 - 33.[address] [facility] MCHC (RBC) [Mass/Vol] 33.1 g/dL 28.4 - 34.8 g/dL [facility] MCV (RBC) [Entitic vol] 88.1 fL 82.6 - 102.[address] [facility] Monocytes/100 WBC (Bld) 6 % 3 - 12 % [facility] NRBC Automated 0.0 0.0 per [address] [facility] Platelet distribution width (Bld) [Ratio] 12.3 % 11.8 - 14.4 % [facility] Platelet mean volume (Bld) [Entitic vol] 10.0 fL 8.1 - 13.[address] [facility] Platelets (Bld) [#/Vol] 269 10*3/uL [facility] RBC (Bld) [#/Vol] 4.46 10*6/uL 4.21 - 5.77 m/uL [facility] Segmented neutrophils/100 WBC (Bld) 85 % High 36 - 65 % [facility] Segs Absolute 10.95 High [facility] WBC (Bld) [#/Vol] 12.9 10*3/uL High [facility] - Chemistry and C hemistry - challengeon 07-11-2021 GFR/1.73 sq M.predicted MDRD (S/P/Bld) [Vol rate/Area] [facility] Comment on above: Average GFR for 60-6 9 years old: 85 mL/min/1.73sq m Chronic Kidney Disease: <60 mL/min/1.73sq m Kidney failure: <15 mL/min/1.73sq m eGFR calculated using average adult body mass. Additional eGFR calculator available at: http://www.[employer]/multiple_crcl_2012.htm Stage 1: Some kidney damage normal GFR Stage 2: Mild kidney damage GFR 60-89 Stage 3: Moderate kidney damage GFR 30-59 Stage 4: Severe kidney damage GFR 15-29 Stage 5: Severe kidney damage GFR <15 ESRD - chronic treatment by dialysis or transplant Microscopic Urinalysison - [facility] Bacteria, UA TRACE Abnormal None [facility] Epithelial Cells UA 0 TO [address] [facility] Interpretation and review of laboratory results Abnormal [facility] RBC, UA 20 TO [address] [facility] WBC, UA 0 TO 2 [facility] Urinalysis with Reflex to Cu ltureon 07-11-2021 Bilirubin Urine Negative NEGATIVE [facility] Color, UA Dark Yellow Abnormal Yellow [facility] Glucose, Ur Negative NEGATIVE [facility] Interpretation and review of laboratory results Abnormal [facility] Ketones Ql (U) Negative NEGATIVE [facility] Leukocyte esterase Test strip Ql (U) Negative NEGATIVE [facility] Nitrite, Urine Positive Abnormal NEGATIVE [facility] pH, UA 6.[address] [facility] Protein, UA 1+ Abnormal NEGATIVE [facility] Specific [place], UA 1.[address] [facility] Turbidity UA Clear Clear [facility] Urine Hgb 3+ Abnormal NEGATIVE [facility] Urobilinogen, Urine Normal Normal [facility] Basic Metabolic Panelon Anion gap [Moles/Vol] 9 mmol/L 9 - 17 mmol/L [facility] Calcium [Mass/Vol] 8.9 mg/dL 8.6 - 10.4 mg/dL [facility] Chloride [Moles/Vol] 104 mmol/L 98 - 107 mmol/L [facility] CO2 [Moles/Vol] 24 mmol/L 20 - 31 mmol/L [facility] Creatinine [Mass/Vol] 1.47 mg/dL High 0.70 - 1.20 mg/dL [facility] GFR 58 mL/min Low >[address] [facility] GFR Non- 48 mL/min Low >[address] [facility] Glucose [Mass/Vol] 95 mg/dL 70 - 99 mg/dL [facility] Interpretation and review of laboratory results Abnormal [facility] Potassium [Moles/Vol] 4.0 mmol/L 3.7 - 5.3 mmol/L [facility] Sodium [Moles/Vol] 137 mmol/L 135 - 144 mmol/L [facility] Urea nitrogen (BldV) [Mass/Vol] 21 mg/dL 8 - 23 mg/dL [facility] Urea nitrogen/Creatini ne (Bld) [Mass ratio] 14 [facility] CBCon 07-10-2021 Hematocrit (Bld) [Volume fraction] 36.0 % Low 40.7 - 50.3 % [facility] Hemoglobin.gastro intestinal spec 1 Ql (Stl) 12.5 g/dL Low 13.0 - 17.0 g/dL [facility] Interpretation and review of laboratory results Abnormal [facility] MCH (RBC) [Entitic mass] 29.9 pg 25.2 - 33.[address] [facility] MCHC (RBC) [Mass/Vol] 34.7 g/dL 28.4 - 34.8 g/dL [facility] MCV (RBC) [Entitic vol] 86.1 fL 82.6 - 102.[address] [facility] NRBC Automated 0.0 0.0 per [address] [facility] Platelet distribution width (Bld) [Ratio] 12.4 % 11.8 - 14.4 % [facility] Platelet mean volume (Bld) [Entitic vol] 9.9 fL 8.1 - 13.[address] [facility] Platelets (Bld) [#/Vol] 239 10*3/uL [facility] RBC (Bld) [#/Vol] 4.18 10*6/uL Low 4.21 - 5.77 m/uL [facility] WBC (Bld) [#/Vol] 9.0 10*3/uL [facility] - Chemistry and C hemistry - challengeon 07-10-2021 GFR/1.73 sq M.predicted MDRD (S/P/Bld) [Vol rate/Area] [facility] Comment on above: Average GFR for 60-6 9 years old: 85 mL/min/1.73sq m Chronic Kidney Disease: <60 mL/min/1.73sq m Kidney failure: <15 mL/min/1.73sq m eGFR calculated using average adult body mass. Additional eGFR calculator available at: http://www.[employer]/multiple_crcl_2012.htm Stage 1: Some kidney damage normal GFR Stage 2: Mild kidney damage GFR 60-89 Stage 3: Moderate kidney damage GFR 30-59 Stage 4: Severe kidney damage GFR 15-29 Stage 5: Severe kidney damage GFR <15 ESRD - chronic treatment by dialysis or transplant FLUORO FOR SURGICAL PROCEDUR ESon 07-09-2021 Radiology exam is co mplete. No Radiologist dictation. Please follow up with ordering provider. [facility] RIS CONSOLIDATED COVID-19on 07-06-2021 SARS-CoV-2 (COVID-19) RNA JOHN+probe Ql (Unsp spec) [facility] SARS-CoV-2 (COVID-19) RNA JOHN+probe Ql (Unsp spec) Not detected Not Detected [facility] Comment on above: The specimen is [...] this assay. Fact sheet for Healthcare Providers: https://www.fda.gov/media/585627/download Fact sheet for Patients: https://www.fda.gov/media/464835/download METHODOLOGY: RT-PCR Source .NASOPHARYNGEAL SWAB [facility] [place] XR KUB 1 VIEWon 06-25-2021 XR KUB [...] DUSTIN TUCKER Date: 2021-06-25 10:30 Normal [facility] CARDIAC NIKO 3-6on 2 CK [Catalytic activity/Vol] 85 U/L Normal 55-170 [facility] Comment on above: Performed By: #### C MREP #### [facility] [address] [place] [address] Dr. Wesley PANG.MB [Mass/Vol] 1.42 ng/mL Normal <=2.37 [facility] Comment on above: Performed By: #### C MREP #### [facility] [address] [place] [address] Dr. Wesley Ashraf HSTROP 10.1 pg/mL Normal 4.0-42.2 [facility] Comment on above: Result Comment: CUT- OFF POINTS HAVE BEEN ESTABLISHED BASED ON THE FOURTH UNIVERSAL DEFINITIONS OF MYOCARDIAL INFARCTION. THE UPPER REFERENCE LIMIT (URL) OF TROPONIN, DEFINED THE 99TH PERCENTILE OF cTnI DISTRIBUTION IN A REFERENCE POPULATION, HAS BEEN CONFIRMED THE DECISION THRESHOLD FOR [place] DIAGNOSIS. Performed By: #### C MREP #### [facility] [address] [place] [address] Dr. Wesley Ashraf CK [Catalytic activity/Vol] 101 U/L Normal 55-170 [facility] Comment on above: Performed By: #### C MREP #### [facility] [address] [place] [address] Dr. Wesley Ashraf CK.MB [Mass/Vol] 1.64 ng/mL Normal <=2.37 [facility] Comment on above: Performed By: #### C MREP #### [facility] [address] [place] [address] Dr. Wesley Ashraf HSTROP 9.3 pg/mL Normal 4.0-42.2 [facility] Comment on above: Result Comment: CUT- OFF POINTS HAVE BEEN ESTABLISHED BASED ON THE FOURTH UNIVERSAL DEFINITIONS OF MYOCARDIAL INFARCTION. THE UPPER REFERENCE LIMIT (URL) OF TROPONIN, DEFINED THE 99TH PERCENTILE OF cTnI DISTRIBUTION IN A REFERENCE POPULATION, HAS BEEN CONFIRMED THE DECISION THRESHOLD FOR TN DIAGNOSIS. Performed By: #### C MREP #### [facility] [id number] Wesley Ashraf CT ABD/PELVIS WO CONon [...] LENIN JAY Date: 2021-06-22 22:30 Normal [facility] CULTURE URINEon 06-23-2021 CULTURE URINE Culture Observations : LIGHT GROWTH OF MIXED SKIN MEGGAN. NO POTENTIAL PATHOGENS SEEN. Normal [facility] Comment on above: Performed By: #### C BC #### [facility] [address] [address] [address] Wesley CERRATO URINE PROFILEon 2 Bilirubin Ql (U) Negative Normal NEGATIVE [facility] Comment on above: Performed By: #### U MICRO, ERUR #### [facility] [address] [address] [address] Wesley Ashraf Clarity (U) CLEAR Normal CLEAR [facility] Comment on above: Performed By: #### U MICRO, ERUR #### [facility] [address] [place] [address] Dr. Wesley Ashraf Color (U) LT. YELLOW Normal YELLOW [facility] Comment on above: Performed By: #### U MICRO, ERUR #### [facility] [address] [place] [address] Dr. Wesley Ashraf ERUAHD A micrscopic examina tion will be performed if indicated. Normal [facility] Comment on above: Performed By: #### U MICRO, ERUR #### [facility] [address] [place] [address] Dr. Wesley Ashraf Glucose Ql (U) Negative Normal NEGATIVE [facility] Comment on above: Performed By: #### U MICRO, ERUR #### [facility] [address] [place] [address] Dr. Wesley Ashraf Hemoglobin Ql (U) MODERATE Abnormal NEGATIVE [facility] Comment on above: Performed By: #### U MICRO, ERUR #### [facility] [address] [place] [address] Dr. Wesley Ashraf Ketones Ql (U) Negative Normal NEGATIVE [facility] Comment on above: Performed By: #### U MICRO, ERUR #### [facility] [address] [place] [address] Dr. Wesley Ashraf LEUKOCYTES Negative Normal NEGATIVE [facility] Comment on above: Performed By: #### U MICRO, ERUR #### [facility] [address] [place] [address] Dr. Wesley Ashraf Nitrite Ql (U) Negative Normal NEGATIVE [facility] Comment on above: Performed By: #### U MICRO, ERUR #### [facility] [address] [place] [address] Dr. Wesley Ashraf pH (U) 6.0 [pH] Normal 5-9 [facility] Comment on above: Performed By: #### U MICRO, ERUR #### [facility] [address] [place] [address] Dr. Wesley Ashraf SPEC GRAVITY 1.025 Normal 1.005-<=1. 025 [facility] Comment on above: Performed By: #### U MICRO, ERUR #### [facility] [address] [place] [address] Dr. Wesley Ashraf UA PROTEIN TRACE Normal NEGATIVE/ TRACE [facility] Comment on above: Performed By: #### U MICRO, ERUR #### [facility] [address] [place] [address] Dr. Wesley Ashraf UR MICRO IND INDICATED Normal [facility] Comment on above: Performed By: #### U MICRO, ERUR #### [facility] [address] [place] [address] Dr. Wesley Ashraf Urobilinogen Qn (U) 0.2 {Al'U}/dL Normal 0.2 - 1.0 [facility] Comment on above: Performed By: #### U MICRO, ERUR #### [facility] [address] [place] [address] Dr. Wesley Ashraf URINE MICROSCOPIC ONLYon BACTERIA SMALL Abnormal NONE SEEN [facility] Comment on above: Performed By: #### U MICRO, ERUR #### [facility] [address] [place] [address] Dr. Wesley Ashraf Bacteria identified Cx Nom (U) INDICATED Normal [facility] Comment on above: Performed By: #### U MICRO, ERUR #### [facility] [address] [place] [address] Dr. Wesley Ashraf CAST NONE SEEN Normal NONE SEEN [facility] Comment on above: Performed By: #### U MICRO, ERUR #### [facility] [address] [place] [address] Dr. Welsey Ashraf Crystals LM Nom (Urine sed) NONE SEEN Normal NONE SEEN [facility] Comment on above: Performed By: #### U MICRO, ERUR #### [facility] [address] [place] [address] Dr. Wesley Ashraf Epithelial cells LM Ql (Urine sed) RARE Normal NONE SEEN /RARE [facility] Comment on above: Performed By: #### U MICRO, ERUR #### [facility] [address] [place] [address] Dr. Wesley Ashraf MUCOUS NONE SEEN Normal NONE SEEN [facility] Comment on above: Performed By: #### U MICRO, ERUR #### [facility] [address] [place] [address] Dr. Wesley Ashraf RBC 50-75 Abnormal 0-2 [facility] Comment on above: Performed By: #### U MICRO, ERUR #### [facility] [address] [place] [address] Dr. Wesley Ashraf WBC 0-2 Abnormal NONE SEEN [facility] Comment on above: Performed By: #### U MICRO, ERUR #### [facility] [address] [place] [address] Dr. Wesley Ashraf BNPon 06-22-2021 Natriuretic peptide B (Bld) [Mass/Vol] 41.0 pg/mL Normal <=900.0 [facility] Comment on above: Performed By: #### C BC #### [facility] [address] [place] [address] Dr. Wesley Ashraf CBC AUTO DIFFon 06-22-2021 BASO # 0.0 103/ul Normal 0.0-0.1 [facility] Comment on above: Performed By: #### C BC #### [facility] [address] [place] [address] Dr. Wesley Ashraf Basophils/100 WBC (Bld) 0.2 % Normal 0.2-2.0 [facility] Comment on above: Performed By: #### C BC #### [facility] [address] [place] [address] Dr. Wesley Ashraf EO # 0.1 103/ul Normal 0.0-0.7 [facility] Comment on above: Performed By: #### C BC #### [facility] [address] [place] [address] Dr. Wesley Ashraf Eosinophils/100 WBC (Bld) 1.0 % Normal 0.9-7.0 [facility] Comment on above: Performed By: #### C BC #### [facility] [address] [place] [address] Dr. Wesley Ashraf Erythrocyte distribution width (RBC) [Ratio] 12.5 % Normal 11.0-15.0 [facility] Comment on above: Performed By: #### C BC #### [facility] [address] [place] [address] Dr. Wesley Ashraf Hematocrit (Bld) [Volume fraction] 41.3 % Critically low 42.0-54.0 [facility] Comment on above: Performed By: #### C BC #### [facility] [address] [place] [address] Dr. Wesley Ashraf Hemoglobin (Bld) [Mass/Vol] 14.4 g/dL Normal 14.0-18.0 [facility] Comment on above: Performed By: #### C BC #### [facility] [address] [place] [address] Dr. Wesley Ashraf IG # 0.04 10e3/ul Critically high 0.00-0.03 [facility] Comment on above: Performed By: #### C BC #### [facility] [facility] [address] [place] [address] Dr. Wesley Ashraf IG % 0.3 % Normal 0.0-0.5 [facility] Comment on above: Performed By: #### C BC #### [facility] [address] [place] [address] Dr. Wesley Ashraf LYMPH # 1.8 103/ul Normal 1.2-3.8 [facility] Comment on above: Performed By: #### C BC #### [facility] [address] [place] [address] Dr. Wesley Ashraf Lymphocytes/100 WBC (Bld) 15.1 % Critically low 20.5-60.0 [facility] Comment on above: Performed By: #### C BC #### [facility] [address] [place] [address] Dr. Wesley Ashraf MANUAL DIFF REQ NO Normal [facility] Comment on above: Performed By: #### C BC #### [facility] [address] [address] [address] Wesley Ashraf MCH (RBC) [Entitic mass] 29.7 pg Normal 25.9-34.0 [facility] Comment on above: Performed By: #### C BC #### [facility] [address] [place] [address] Dr. Wesley Ashraf MCHC (RBC) [Mass/Vol] 34.9 g/dL Normal 29.9-35.2 [facility] Comment on above: Performed By: #### C BC #### [facility] [address] [place] [address] Dr. Wesley Ashraf MCV (RBC) [Entitic vol] 85.2 fL Normal 80.0-94.0 [facility] Comment on above: Performed By: #### C BC #### [facility] [address] [place] [address] Dr. Wesley Ashraf MONO # 0.9 103/ul Critically high 0.3-0.8 [facility] Comment on above: Performed By: #### C BC #### [facility] [address] [place] [address] Dr. Wesley Ashraf Monocytes/100 WBC (Bld) 7.3 % Normal 1.7-12.0 [facility] Comment on above: Performed By: #### C BC #### [facility] [address] [place] [address] Dr. Wesley Ashraf NEUT # 9.1 103/ul Critically high 1.4-6.5 [facility] Comment on above: Performed By: #### C BC #### [facility] [address] [place] [address] Dr. Wesley Ashraf Neutrophils/100 WBC (Bld) 76.1 % Critically high 43.0-75.0 [facility] Comment on above: Performed By: #### C BC #### [facility] [address] [place] [address] Dr. Wesley Ashraf Platelet mean volume (Bld) [Entitic vol] 9.7 fL Normal 9.5-13.5 [facility] Comment on above: Performed By: #### C BC #### [facility] [address] [address] [address] Wesley Ashraf PLT 268 103/ul Normal 150-450 [facility] Comment on above: Performed By: #### C BC #### [facility] [address] [place] [address] Dr. Wesley Ashraf RBC 4.85 106/ul Normal 4.70-6.10 [facility] Comment on above: Performed By: #### C BC #### [facility] [address] [address] [address] Wesley Ashraf WBC 12.0 103/ul Critically high 4.0-11.0 [facility] Comment on above: Performed By: #### C BC #### [facility] [address] [place] [address] Dr. Wesley Ashraf D-DIMERon 06-22-2021 D-DIMER 0.33 mg/L FEU Normal 0.19-0.50 [facility] Comment on above: Performed By: #### C MREP #### [facility] [address] [place] [address] Dr. Wesley Ashraf D-DIMER COMMENTS SEE BELOW Normal [facility] Comment on above: Result Comment: Incr eases [...] hospitalization. Performed By: #### C MREP #### [facility] [address] [place] [address] Dr. Wesley Ashraf PROF CHEM 8 (BAS METB)on Anion gap [Moles/Vol] 15.0 mmol/L Normal [facility] Comment on above: Performed By: #### C BC #### [facility] [address] [place] [address] Dr. Wesley Ashraf Calcium [Mass/Vol] 9.3 mg/dL Normal 8.4-10.2 [facility] Comment on above: Performed By: #### C BC #### [facility] [address] [place] [address] Dr. Wesley Ashraf Chloride [Moles/Vol] 104 mmol/L Normal 98-107 [facility] Comment on above: Performed By: #### C BC #### [facility] [address] [place] [address] Dr. Wesley Ashraf CO2 [Moles/Vol] 24.9 mmol/L Normal 22.0-30.0 [facility] Comment on above: Performed By: #### C BC #### [facility] [address] [place] [address] Dr. Wesley Ashraf Creatinine [Mass/Vol] 0.95 mg/dL Normal 0.66-1.25 [facility] Comment on above: Performed By: #### C BC #### [facility] [address] [place] [address] Dr. Wesley Ashraf EGFR-AF DJIBOUTIAN >60 Normal >=60 [facility] Comment on above: Performed By: #### C BC #### [facility] [address] [place] [address] Dr. Wesley Ashraf EGFR-NON AF DJIBOUTIAN >60 Normal >=60 [facility] Comment on above: Performed By: #### C BC #### [facility] [address] [place] [address] Dr. Wesley Ashraf Glucose [Mass/Vol] 103 mg/dL Normal 74-106 [facility] Comment on above: Performed By: #### C BC #### [facility] [address] [place] [address] Dr. Wesley Ashraf Potassium [Moles/Vol] 3.9 mmol/L Normal 3.4-5.0 [facility] Comment on above: Performed By: #### C BC #### [facility] [address] [place] [address] Dr. Wesley Ashraf Sodium [Moles/Vol] 140 mmol/L Normal 137-145 [facility] Comment on above: Performed By: #### C BC #### [facility] [address] [place] [address] Dr. Wesley Ashraf Urea nitrogen [Mass/Vol] 21.0 mg/dL Critically high 9.0-20.0 [facility] Comment on above: Performed By: #### C BC #### [facility] [address] [place] [address] Dr. Wesley Ashraf Urea nitrogen/Creatini ne [Mass ratio] 22.1 mg/mg Normal [facility] Comment on above: Performed By: #### C BC #### [facility] [address] [place] [address] Dr. Wesley Ashraf PROTIMEon 06-22-2021 INR Coag (PPP) [Relative time] 0.95 {INR} Normal [facility] Comment on above: Performed By: #### C MREP #### [facility] [address] [place] [address] Dr. Wesley Ashraf INR GUIDELINES SEE BELOW Normal [facility] Comment on above: Result Comment: LILI RED INR: 2.0 - 3.0 CONDITIONS NOT LISTED BELOW 2.5 - 3.5 FOR PROSTHETIC HEART VALVE REPLACEMENT 2.5 - 3.5 RECURRENT THROMBOSIS Performed By: #### C MREP #### [facility] [address] [place] [address] Dr. Wesley Ashraf PT Coag (PPP) [Time] 10.3 s Normal 9.0-11.6 [facility] Comment on above: Performed By: #### C MREP #### [facility] [address] [place] [address] Dr. Wesley Ashraf PTTon 06-22-2021 aPTT Coag (Bld) [Time] 27.9 s Normal 22.3-36.2 [facility] Comment on above: Performed By: #### C MREP #### [facility] [address] [place] [address] Dr. Wesley Ashraf TROPONIN, HIGH SENSITIVITYon 06-22-2021 HSTROP 6.7 pg/mL Normal 4.0-42.2 [facility] Comment on above: Result Comment: CUT- OFF POINTS HAVE BEEN ESTABLISHED BASED ON THE FOURTH UNIVERSAL DEFINITIONS OF MYOCARDIAL INFARCTION. THE UPPER REFERENCE LIMIT (URL) OF TROPONIN, DEFINED THE 99TH PERCENTILE OF cTnI DISTRIBUTION IN A REFERENCE POPULATION, HAS BEEN CONFIRMED THE DECISION THRESHOLD FOR [place] DIAGNOSIS. Performed By: #### B ERIC PAULSON #### [facility] [address] [place] [address] Dr. Wesley Ashraf INSULINon 05-24-2021 Insulin 10.6 uIU/mL Normal 2.6-24.9 [facility] Comment on above: Performed By: #### I NSULIN #### [facility] [address] [place] [address] Dr. Wesley Ashraf PSA SCREENING LABCORPon 05-11 Prostate specific Ag [Mass/Vol] 1.0 ng/mL Normal 0.0-4.0 [facility] Comment on above: Result Comment: Anibal graff ECLIA methodology. . According to the [place] [employer], Serum PSA should decrease and [...] Performed By: #### B ERIC PAULSON #### [facility] [address] [place] [address] Dr. Wesley Ashraf AMYLASEon 05-23-2021 Amylase [Catalytic activity/Vol] 36 U/L Normal 31-110 [facility] Comment on above: Performed By: #### C MREP #### [facility] [address] [place] [address] Dr. Wesley Ashraf CBC AUTO DIFFon 05-23-2021 BASO # 0.0 103/ul Normal 0.0-0.1 [facility] Comment on above: Performed By: #### B ERIC PAULSON #### [facility] [address] [place] [address] Dr. Wesley Ashraf Basophils/100 WBC (Bld) 0.4 % Normal 0.2-2.0 [facility] Comment on above: Performed By: #### B KHURRAM, CMADM #### [facility] [address] [place] [address] Dr. Wesley Ashraf EO # 0.2 103/ul Normal 0.0-0.7 [facility] Comment on above: Performed By: #### B KHURRAM, CMADM #### [facility] [address] [place] [address] Dr. Wesley Ashraf Eosinophils/100 WBC (Bld) 2.3 % Normal 0.9-7.0 [facility] Comment on above: Performed By: #### B KHURRAM, AMADODM #### [facility] [address] [place] [address] Dr. Wesley Ashraf Erythrocyte distribution width (RBC) [Ratio] 13.0 % Normal 11.0-15.0 [facility] Comment on above: Performed By: #### B KHURRAM, AMADODM #### [facility] [address] [place] [address] Dr. Wesley Ashraf Hematocrit (Bld) [Volume fraction] 39.2 % Critically low 42.0-54.0 [facility] Comment on above: Performed By: #### B AMADO PAULSONDM #### [facility] [address] [place] [address] Dr. Wesley Ashraf Hemoglobin (Bld) [Mass/Vol] 13.4 g/dL Critically low 14.0-18.0 [facility] Comment on above: Performed By: #### B KHURRAM, AMADODM #### [facility] [address] [place] [address] Dr. Wesley Ashraf IG # 0.02 10e3/ul Normal 0.00-0.03 [facility] Comment on above: Performed By: #### B KHURRAM, CMADM #### [facility] [address] [place] [address] Dr. Wesley Ashraf IG % 0.3 % Normal 0.0-0.5 [facility] Comment on above: Performed By: #### B KHURRAM, CMADM #### [facility] [address] [place] [address] Dr. Wesley Ashraf LYMPH # 1.6 103/ul Normal 1.2-3.8 [facility] Comment on above: Performed By: #### B KHURRAM, CMADM #### [facility] [address] [place] [address] Dr. Wesley Ashraf Lymphocytes/100 WBC (Bld) 22.6 % Normal 20.5-60.0 [facility] Comment on above: Performed By: #### B KHURRAM, CMADM #### [facility] [address] [place] [address] Dr. Wesley Ashraf MANUAL DIFF REQ NO Normal [facility] Comment on above: Performed By: #### B KHURRAM, CMADM #### [facility] [address] [place] [address] Dr. Wesley Ashraf MCH (RBC) [Entitic mass] 28.9 pg Normal 25.9-34.0 [facility] Comment on above: Performed By: #### B KHURRAM, CMADM #### [facility] [address] [place] [address] Dr. Wesley Ashraf MCHC (RBC) [Mass/Vol] 34.2 g/dL Normal 29.9-35.2 [facility] Comment on above: Performed By: #### B KHURRAM, AMADODM #### [facility] [address] [place] [address] Dr. Wesley Ashraf MCV (RBC) [Entitic vol] 84.7 fL Normal 80.0-94.0 [facility] Comment on above: Performed By: #### B KHURRAM, CMADM #### [facility] [address] [place] [address] Dr. Wesley Ashraf MONO # 0.6 103/ul Normal 0.3-0.8 [facility] Comment on above: Performed By: #### B KHURRAM, CMADM #### [facility] [address] [place] [address] Dr. Wesley Ashraf Monocytes/100 WBC (Bld) 8.0 % Normal 1.7-12.0 [facility] Comment on above: Performed By: #### B KHURRAM, CMADM #### [facility] [address] [place] [address] Dr. Wesley Ashraf NEUT # 4.6 103/ul Normal 1.4-6.5 [facility] Comment on above: Performed By: #### B ERIC PAULSON #### [facility] [address] [address] [address] Wesley Ashraf Neutrophils/100 WBC (Bld) 66.4 % Normal 43.0-75.0 [facility] Comment on above: Performed By: #### B ERIC PAULSON #### [facility] [address] [address] [address] Wesley Ashraf Platelet mean volume (Bld) [Entitic vol] 9.8 fL Normal 9.5-13.5 [facility] Comment on above: Performed By: #### B ERIC PAULSON #### [facility] [address] [address] [address] Wesley Ashraf PLT 295 103/ul Normal 150-450 [facility] Comment on above: Performed By: #### B ERIC PAULSON #### [facility] [address] [address] [address] Wesley Ashraf RBC 4.63 106/ul Critically low 4.70-6.10 [facility] Comment on above: Performed By: #### B ERIC PAULSON #### [facility] [address] [address] [address] Wesley Ashraf WBC 7.0 103/ul Normal 4.0-11.0 [facility] Comment on above: Performed By: #### B ERIC PAULSON #### [facility] [address] [address] [address] Wesley Ashraf GLYCOHEMOGLOBIN A1Con 2021 ADA RECOMMENDATION ADA THERAPEUTIC TARGET 6.0 - 7.0 ACTION SUGGESTED > 7.0 Normal [facility] Comment on above: Performed By: #### B ERIC PAULSON #### [facility] [address] [address] [address] Wesley Ashraf Glucose [Mass/Vol] 117 mg/dL Normal [facility] Comment on above: Performed By: #### B ERIC PAULSON #### [facility] [address] [address] [address] Wesley Ashraf HbA1c (Bld) [Mass fraction] 5.7 % Normal <=6.0 [facility] Comment on above: Performed By: #### B MP, CMADM #### [facility] [address] [address] [address] Wesley Ashraf LIPASEon 05-23-2021 Lipase [Catalytic activity/Vol] 128.0 U/L Normal 23.0-300.0 [facility] Comment on above: Performed By: #### C MREP #### [facility] [address] [place] [address] Dr. Wesley Ashraf LIPID PROFILEon 05-23-2021 CHOL-HDL RATIO NORM SEE BELOW Normal [facility] Comment on above: Result Comment: 3.3 - 4.4 LOW RISK 4.4 - 7.1 AVERAGE RISK 7.1 - 11.0 MODERATE RISK >11.0 HIGH RISK Performed By: #### C MREP #### [facility] [address] [address] [address] Wesley Ashraf Cholesterol [Mass/Vol] 135 mg/dL Normal <=200 [facility] Comment on above: Performed By: #### C MREP #### [facility] [address] [place] [address] Dr. Wesley Ashraf Cholesterol in HDL [Mass/Vol] 56 mg/dL Normal [facility] Comment on above: Performed By: #### C MREP #### [facility] [address] [address] [address] Wesley Ashraf Cholesterol in LDL [Mass/Vol] 39.4 mg/dL Normal [facility] Comment on above: Performed By: #### C MREP #### [facility] [address] [place] [address] Dr. Wesley Ashraf Cholesterol.total /Cholesterol in HDL [Mass ratio] 2.4 {ratio} Normal [facility] Comment on above: Performed By: #### C MREP #### [facility] [address] [place] [address] Dr. Wesley Ashraf HDL NORMAL > or = 60 mg/dl - LO W CARDIOVASCULAR RISK <40 mg/dl - HIGH CARDIOVASCULAR RISK Normal [facility] Comment on above: Performed By: #### C MREP #### [facility] [address] [place] [address] Dr. Wesley Ashraf LDL CALC NORMAL SEE BELOW Normal [facility] Comment on above: Result Comment: <100 mg/dl OPTIMAL 100 - 129 mg/dl NEAR OR ABOVE OPTIMAL 130 - 159 mg/dl BORDERLINE HIGH 160 - 189 mg/dl HIGH >190 mg/dl VERY HIGH Performed By: #### C MREP #### [facility] [address] [place] [address] Dr. Wesley Ashraf Triglyceride [Mass/Vol] 198 mg/dL Critically high <=150 [facility] Comment on above: Performed By: #### C MREP #### [facility] [address] [place] [address] Dr. Wesley Ashraf VLDL CALC 39.6 mg/dL Normal [facility] Comment on above: Performed By: #### C MREP #### [facility] [address] [place] [address] Dr. Wesley Ashraf PROF 14(COMP METB)on 022 Albumin [Mass/Vol] 3.7 g/dL Normal 3.5-5.0 [facility] Comment on above: Performed By: #### C BC #### [facility] [address] [place] [address] Dr. Wesley Ashraf Albumin/Globulin [Mass ratio] 1.1 {ratio} Normal [facility] Comment on above: Performed By: #### C BC #### [facility] [address] [place] [address] Dr. Wesley Ashraf ALP [Catalytic activity/Vol] 63 U/L Normal 38-126 [facility] Comment on above: Performed By: #### C BC #### [facility] [address] [place] [address] Dr. Wesley Ashraf ALT [Catalytic activity/Vol] 36 U/L Normal 21-72 [facility] Comment on above: Performed By: #### C BC #### [facility] [address] [place], [place] [id number] Dr. Wesley Ashraf Anion gap [Moles/Vol] 16.4 mmol/L Normal [facility] Comment on above: Performed By: #### C BC #### [facility] [address] [place] [address] Dr. Wesley Ashraf AST [Catalytic activity/Vol] 20 U/L Normal 17-59 [facility] Comment on above: Performed By: #### C BC #### [facility] [address] [address] [address] Wesley Ashraf Bilirubin [Mass/Vol] 0.6 mg/dL Normal 0.2-1.3 [facility] Comment on above: Performed By: #### C BC #### [facility] [address] [place] [address] Dr. Wesley Ashraf Calcium [Mass/Vol] 8.9 mg/dL Normal 8.4-10.2 [facility] Comment on above: Performed By: #### C BC #### [facility] [address] [place] [address] Dr. Wesley Ashraf Chloride [Moles/Vol] 102 mmol/L Normal 98-107 [facility] Comment on above: Performed By: #### C BC #### [facility] [address] [place] [address] Dr. Wesley Ashraf CO2 [Moles/Vol] 23.7 mmol/L Normal 22.0-30.0 [facility] Comment on above: Performed By: #### C BC #### [facility] [address] [place] [address] Dr. Wesley Ashraf Creatinine [Mass/Vol] 0.81 mg/dL Normal 0.66-1.25 [facility] Comment on above: Performed By: #### C BC #### [facility] [address] [place] [address] Dr. Wesley Ashraf EGFR-AF DJIBOUTIAN >60 Normal >=60 [facility] Comment on above: Performed By: #### C BC #### [facility] [address] [place] [address] Dr. Wesley Ashraf EGFR-NON AF DJIBOUTIAN >60 Normal >=60 [facility] Comment on above: Performed By: #### C BC #### [facility] [address] [address] [address] Wesley Ashraf Globulin (S) [Mass/Vol] 3.3 g/dL Normal [facility] Comment on above: Performed By: #### C BC #### [facility] [address] [address] [address] Wesley Ashraf Glucose [Mass/Vol] 104 mg/dL Normal 74-106 [facility] Comment on above: Performed By: #### C BC #### [facility] [address] [address] [address] Wesley Ashraf Potassium [Moles/Vol] 4.1 mmol/L Normal 3.4-5.0 [facility] Comment on above: Performed By: #### C BC #### [facility] [address] [place] [address] Dr. Wesley Ashraf Protein [Mass/Vol] 7.0 g/dL Normal 6.1-8.2 [facility] Comment on above: Performed By: #### C BC #### [facility] [address] [address] [address] Wesley Ashraf Sodium [Moles/Vol] 138 mmol/L Normal 137-145 [facility] Comment on above: Performed By: #### C BC #### [facility] [address] [place] [address] Dr. Wesley Ashraf Urea nitrogen [Mass/Vol] 17.0 mg/dL Normal 9.0-20.0 [facility] Comment on above: Performed By: #### C BC #### [facility] [address] [place] [address] Dr. Wesley Ashraf Urea nitrogen/Creatini ne [Mass ratio] 21.0 mg/mg Normal [facility] Comment on above: Performed By: #### C BC #### [facility] [address] [place] [address] Dr. Wesley Ashraf URIC ACID SERUMon 05-23-2021 Urate [Mass/Vol] 4.6 mg/dL Normal 3.5-8.5 [facility] Comment on above: Performed By: #### C MREP #### [facility] [address] [place] [address] Dr. Wesley Ashraf CARDIAC NIKO ADMITon 021 CK [Catalytic activity/Vol] 105 U/L Normal 55-170 [facility] Comment on above: Performed By: #### B KHURRAM, CMADM #### [facility] [address] [place] [address] Dr. Wesley Ashraf CK.MB [Mass/Vol] 1.63 ng/mL Normal <=2.37 [facility] Comment on above: Performed By: #### B AMADO PAULSONDM #### [facility] [address] [place] [address] Dr. Wesley Ashraf HSTROP 7.7 pg/mL Normal 4.0-42.2 [facility] Comment on above: Result Comment: CUT- OFF POINTS HAVE BEEN ESTABLISHED BASED ON THE FOURTH UNIVERSAL DEFINITIONS OF MYOCARDIAL INFARCTION. THE UPPER REFERENCE LIMIT (URL) OF TROPONIN, DEFINED THE 99TH PERCENTILE OF cTnI DISTRIBUTION IN A REFERENCE POPULATION, HAS BEEN CONFIRMED THE DECISION THRESHOLD FOR TN DIAGNOSIS. Performed By: #### B AMADO PAULSONDM #### [facility] [address] [place] [address] Dr. Wesley Ashraf ARUN 33.0 ng/mL Normal <=121.0 [facility] Comment on above: Performed By: #### B AMADO PAULSONDM #### [facility] [address] [place] [address] Dr. Wesley Ashraf CBC AUTO DIFFon 04-13-2021 BASO # 0.0 103/ul Normal 0.0-0.1 [facility] Comment on above: Performed By: #### B AMADO PAULSONDM #### [facility] [address] [place] [address] Dr. Wesley Ashraf Basophils/100 WBC (Bld) 0.2 % Normal 0.2-2.0 [facility] Comment on above: Performed By: #### B KHURRAM, CMADM #### [facility] [address] [place] [address] Dr. Wesley Ashraf EO # 0.3 103/ul Normal 0.0-0.7 [facility] Comment on above: Performed By: #### B ERIC PAULSON #### [facility] [address] [place] [address] Dr. Wesley Ashraf Eosinophils/100 WBC (Bld) 4.2 % Normal 0.9-7.0 [facility] Comment on above: Performed By: #### B ERIC PAULSON #### [facility] [address] [place] [address] Dr. Wesley Ashraf Erythrocyte distribution width (RBC) [Ratio] 12.3 % Normal 11.0-15.0 [facility] Comment on above: Performed By: #### B ERIC PAULSON #### [facility] [address] [place] [address] Dr. Wesley Ashraf Hematocrit (Bld) [Volume fraction] 38.6 % Critically low 42.0-54.0 [facility] Comment on above: Performed By: #### ERIC Cannon MP #### [facility] [address] [place] [address] Dr. Wesley Ashraf Hemoglobin (Bld) [Mass/Vol] 13.5 g/dL Critically low 14.0-18.0 [facility] Comment on above: Performed By: #### ERIC Cannon MP #### [facility] [address] [place] [address] Dr. Wesley Ashraf IG # 0.02 10e3/ul Normal 0.00-0.03 [facility] Comment on above: Performed By: #### B ERIC PAULSON #### [facility] [address] [place] [address] Dr. Wesley Ashraf IG % 0.3 % Normal 0.0-0.5 [facility] Comment on above: Performed By: #### B ERIC PAULSON #### [facility] [address] [place] [address] Dr. Wesley Ashraf LYMPH # 1.5 103/ul Normal 1.2-3.8 [facility] Comment on above: Performed By: #### B ERIC PAULSON #### [facility] [address] [place] [address] Dr. Wesley Ashraf Lymphocytes/100 WBC (Bld) 25.1 % Normal 20.5-60.0 [facility] Comment on above: Performed By: #### B KHURRAM, CMADM #### [facility] [address] [place] [address] Dr. Wesley Ashraf MANUAL DIFF REQ NO Normal [facility] Comment on above: Performed By: #### B KHURRAM, CMADM #### [facility] [address] [place] [address] Dr. Wesley Ashraf MCH (RBC) [Entitic mass] 29.3 pg Normal 25.9-34.0 [facility] Comment on above: Performed By: #### B KHURRAM, AMADODM #### [facility] [address] [place] [address] Dr. Wesley Ashraf MCHC (RBC) [Mass/Vol] 35.0 g/dL Normal 29.9-35.2 [facility] Comment on above: Performed By: #### B KHURRAM, AMADODM #### [facility] [address] [place] [address] Dr. Wesley Ashraf MCV (RBC) [Entitic vol] 83.9 fL Normal 80.0-94.0 [facility] Comment on above: Performed By: #### B KHURRAM, AMADODM #### [facility] [address] [place] [address] Dr. Wesley Ashraf MONO # 0.5 103/ul Normal 0.3-0.8 [facility] Comment on above: Performed By: #### B KHURRAM, CMADM #### [facility] [address] [place] [address] Dr. Wesley Ashraf Monocytes/100 WBC (Bld) 8.4 % Normal 1.7-12.0 [facility] Comment on above: Performed By: #### B KHURRAM, CMADM #### [facility] [address] [place] [address] Dr. Wesley Ashraf NEUT # 3.7 103/ul Normal 1.4-6.5 [facility] Comment on above: Performed By: #### B KHURRAM, AMADODM #### [facility] [address] [address] [address] Wesley Ashraf Neutrophils/100 WBC (Bld) 61.8 % Normal 43.0-75.0 [facility] Comment on above: Performed By: #### B MP, CMADM #### [facility] [address] [address] [address] Wesley Ashraf Platelet mean volume (Bld) [Entitic vol] 10.2 fL Normal 9.5-13.5 [facility] Comment on above: Performed By: #### B MP, CMADM #### [facility] [address] [address] [address] Wesley Ashraf PLT 206 103/ul Normal 150-450 [facility] Comment on above: Performed By: #### B MP, CMADM #### [facility] [address] [address] [address] Wesley Ashraf RBC 4.60 106/ul Critically low 4.70-6.10 [facility] Comment on above: Performed By: #### B MP, CMADM #### [facility] [address] [address] [address] Wesley Ashraf WBC 5.9 103/ul Normal 4.0-11.0 [facility] Comment on above: Performed By: #### B MP, CMADM #### [facility] [address] [address] [address] Wesley Ashraf Covid-19 PCR (CVDTB)on SARS-CoV-2 (COVID-19) RNA JOHN+probe Ql (Unsp spec) Detected Critically abnormal NOT DETECTED [facility] Comment on above: Result Comment: This test is not yet approved or cleared by the [place] Food and Drug Administration (FDA). This test was developed by [employer], [place], [place]. The performance characteristics of this test were validated by [facility]. The results are not intended to be used as the sole means for clinical diagnosis or patient management decisions. [facility] is authorized under Clinical Laboratory Improvement [...] for this test is supported by the Industrial Organization Manager of Health and Human Service's declaration that [...] Performed By: #### B MP, CMADM #### [facility] [address] [place] [address] Dr. Wesley Ashraf D-DIMERon 04-13-2021 D-DIMER <0.19 Normal 0.19-0.50 [facility] Comment on above: Performed By: #### D DIM #### [facility] [address] [place] [address] Dr. Wesley Ashraf D-DIMER COMMENTS SEE BELOW Normal [facility] Comment on above: Result Comment: Incr eases [...] hospitalization. Performed By: #### D DIM #### [facility] [address] [place] [address] Dr. Wesley Ashraf INFLUENZA A AND B AGon INFLUANEGH SEE BELOW Normal [facility] Comment on above: Result Comment: Nega tive for Flu A protein angiten. Infection due to Flu A cannot be ruled out. Flu A angiten in the sample may be below the detection limit of the test. Performed By: #### C MREP #### [facility] [address] [place] [address] Dr. Wesley Ashraf [facility] SEE BELOW Normal [facility] Comment on above: Result Comment: Nega tive for Flu B protein antigen. Infection due to Flu B cannot be ruled out. Flu B antigen in the sample may be below the detection limit of the test. Performed By: #### C MREP #### [facility] [address] [place] [address] Dr. Wesley Ashraf INFLUENZA A AG Negative Normal NEGATIVE SEE COMMENT [facility] Comment on above: Performed By: #### C MREP #### [facility] [address] [place] [address] Dr. Wesley Ashraf INFLUENZA B AG Negative Normal NEGATIVE SEE COMMENT [facility] Comment on above: Performed By: #### C MREP #### [facility] [address] [place] [address] Dr. Wesley Ashraf INTERNAL CONTROLS Within Normal Limits Normal Wi thin Normal Limits [facility] Comment on above: Performed By: #### C MREP #### [facility] [address] [place] [address] Dr. Wesley Ashraf PROF CHEM 8 (BAS METB)on Anion gap [Moles/Vol] 14.6 mmol/L Normal [facility] Comment on above: Performed By: #### ERIC Cannon MP #### [facility] [address] [place] [address] Dr. Wesley Ashraf Calcium [Mass/Vol] 9.0 mg/dL Normal 8.4-10.2 [facility] Comment on above: Performed By: #### B AMADO PAULSONDM #### [facility] [address] [place] [address] Dr. Wesley Ashraf Chloride [Moles/Vol] 101 mmol/L Normal 98-107 [facility] Comment on above: Performed By: #### B ERIC PAULSON #### [facility] [address] [place] [address] Dr. Wesley Ashraf CO2 [Moles/Vol] 25.2 mmol/L Normal 22.0-30.0 [facility] Comment on above: Performed By: #### B ERIC PAULSON #### [facility] [address] [address] [address] Wesley Ashraf Creatinine [Mass/Vol] 0.76 mg/dL Normal 0.66-1.25 [facility] Comment on above: Performed By: #### B KHURRAM, AMADODM #### [facility] [address] [address] [address] Wesley Ashraf EGFR-AF DJIBOUTIAN >60 Normal >=60 [facility] Comment on above: Performed By: #### B AMADO PAULSONDM #### [facility] [address] [address] [address] Wesley Ashraf EGFR-NON AF DJIBOUTIAN >60 Normal >=60 [facility] Comment on above: Performed By: #### B ERIC PAULSON #### [facility] [address] [address] [address] Wesley Ashraf Glucose [Mass/Vol] 103 mg/dL Normal 74-106 [facility] Comment on above: Performed By: #### B ERIC PAULSON #### [facility] [address] [address] [address] Wesley Ashraf Potassium [Moles/Vol] 3.8 mmol/L Normal 3.4-5.0 [facility] Comment on above: Performed By: #### B ERIC PAULSON #### [facility] [address] [address] [address] Wesley Ashraf Sodium [Moles/Vol] 137 mmol/L Normal 137-145 [facility] Comment on above: Performed By: #### B ERIC PAULSON #### [facility] [address] [address] [address] Wesley Ashraf Urea nitrogen [Mass/Vol] 17.0 mg/dL Normal 9.0-20.0 [facility] Comment on above: Performed By: #### B ERIC PAULSON #### [facility] [address] [address] [address] Wesley Ashraf Urea nitrogen/Creatini ne [Mass ratio] 22.4 mg/mg Normal [facility] Comment on above: Performed By: #### B ERIC PAULSON #### [facility] [id number] Wesley Ashraf XR CHEST 1 Von 04-13-2021 XR CHEST 1 V EXAM: XR CHEST 1 V HISTORY: SHORTNESS OF BREATH COMPARISON: 08/05/2019 TECHNIQUE: Portable AP chest 7:03 AM FINDINGS: Lungs are clear and heart size is normal. No pleural effusion or pneumothorax IMPRESSION: No acute findings Electronically authenticated by: CHRISTIANA HERNÁNDEZ Date: 2021-04-13 07:39 Normal [facility] Discharge Summaryon 11-13-19 Discharge Summary MR#: [id number] [facility] Pt[facility] Name: Ronnell Peres Admitted: 11/10/2017 Discharged: 11/11/2017 Date of : 1955 Physician: Andrew Braswell MD [facility]: Name unknown.PRINCIPAL PROBLEM:1. Acute ST-elevated [place].2. Tobacco abuse.3. Alcohol abuse.HOSPITAL COURSE: Mr. Peres is a 62-year-old gentleman with no pastmedical history and reports having not seen a family doctor physician inthe last 2 decades. He presented to the [place] [facility] Department withcomplaints of acute onset of left-sided chest pain that radiated toshoulder and jaw, that was worse with exertion and was slightly responsiveto nitroglycerin. His EKG at that time showed ST elevations in lead I andaVL for which reason, he was urgently transferred [facility] to undergopercutaneous intervention. The patient underwent [...] 2:40 p.m.Discharge cardiac rehab phase 1: At [place].3. Patient has been counselled on Smoking Cessation [...] 11/11/2017/05:08 P/Janis Greene CNPDate Trans: 11/12/2017 02:35 [id number] Normal [facility] CBC COMPLETE BLOOD COUNTon 0 11-11-2017 Erythrocyte distribution width Auto Ratio (RBC) 12.2 % Normal 11.5-15.0 [facility] Comment on above: Order Comment: Unkno wn Performed By: #### 5 0608 ####[address] Erythrocytes (RBC) 4.18 10*6/uL Low 4.20-5.70 [facility] Comment on above: Order Comment: Unkno wn Performed By: #### 5 0608 ####[address] Hematocrit (HCT) 35.5 % Low 39.0-50.0 [facility] Comment on above: Order Comment: Unkno wn Performed By: #### 5 0608 ####[address] [address] [address] Hemoglobin mass conc (Bld) 12.5 g/dL Low 13.0-17.0 [facility] Comment on above: Order Comment: Unkno wn Performed By: #### 5 0608 ####[address] MCH 29.9 pg Normal 27.0-33.0 [facility] Comment on above: Order Comment: Unkno wn Performed By: #### 5 0608 ####[id number] MCHC mass conc (RBC) 35.2 g/dL High 32.0-35.0 [facility] Comment on above: Order Comment: Unkno wn Performed By: #### 5 0608 ####[facility] MCV 84.9 fL Normal 82.0-98.0 [facility] Comment on above: Order Comment: Unkno wn Performed By: #### 5 0608 ####[id number] NRBC 0 % Normal 0-0 [facility] Comment on above: Order Comment: Unkno wn Performed By: #### 5 0608 ####[facility] PLAT CNT 240 10*3/uL Normal 150-400 [facility] Comment on above: Order Comment: Unkno wn Performed By: #### 5 0608 ####[id number] WBC (Leukocytes) 9.79 10*3/uL Normal 4.00-10.60 [facility] Comment on above: Order Comment: Unkno wn Performed By: #### 5 0608 ####[id number] COMP METABOLIC PANELon 11-11 Alanine aminotransferase (ALT) 18 U/L Normal 7-52 [facility] Comment on above: Order Comment: Yes: Add to Previous draw if able Performed By: #### 4 6413, 58441, 65510, 86809, 50698 ####[facility] Albumin 3.7 g/dL Normal 3.5-5.7 [facility] Comment on above: Order Comment: Yes: Add to Previous draw if able Performed By: #### 4 6413, 22726, 12497, 23802, 01550 ####[facility] [place] [address], [facility] ALKALINE PHOSPH 44 IU/L Normal 34-104 [facility] Comment on above: Order Comment: Yes: Add to Previous draw if able Performed By: #### 4 6413, 43621, 74697, 80455, 87960 ####[facility] [place] [address], [facility] Aspartate aminotransferase (AST) 32 U/L Normal 13-39 [facility] Comment on above: Order Comment: Yes: Add to Previous draw if able Performed By: #### 4 6413, 96872, 27306, 08162, 14393 ####[facility] [place] [address], [facility] Bilirubin (total) 0.6 mg/dL Normal 0.3-1.0 [facility] Comment on above: Order Comment: Yes: Add to Previous draw if able Performed By: #### 4 6413, 22519, 96058, 29437, 60668 ####[facility] [place] [address], [facility] Calcium 8.8 mg/dL Normal 8.6-10.3 [facility] Comment on above: Order Comment: Yes: Add to Previous draw if able Performed By: #### 4 6413, 69707, 76382, 97135, 99907 ####[facility] [place] [address], [place] Chloride 106 mmol/L Normal 98-107 [facility] Comment on above: Order Comment: Yes: Add to Previous draw if able Performed By: #### 4 6413, 45313, 61326, 40360, 89582 ####[facility] [place] [address], [place] CO2 26 mmol/L Normal 21-31 [facility] Comment on above: Order Comment: Yes: Add to Previous draw if able Performed By: #### 4 6413, 86584, 76037, 95498, 97431 ####[facility] Creatinine 0.70 mg/dL Normal 0.70-1.30 [facility] Comment on above: Order Comment: Yes: Add to Previous draw if able Performed By: #### 4 6413, 24518, 03535, 61193, 10533 ####[facility] eGFR (black) mL/min/{1.73_m2} Normal >60 [facility] Comment on above: Order Comment: Yes: Add to Previous draw if able Performed By: #### 4 6413, 78632, 99373, 86911, 00020 ####[facility] eGFR (non-black) mL/min/{1.73_m2} Normal >60 [facility] Comment on above: Order Comment: Yes: Add to Previous draw if able Performed By: #### 4 6413, 28262, 94492, 85411, 34495 ####[facility] [facility] [place] [address], [facility] Glucose mass conc 90 mg/dL Normal 70-100 [facility] Comment on above: Order Comment: Yes: Add to Previous draw if able Performed By: #### 4 6413, 54806, 13553, 79465, 87977 ####[facility] [place] [address], [facility] Potassium molar conc 3.5 mmol/L Normal 3.5-5.1 [facility] Comment on above: Order Comment: Yes: Add to Previous draw if able Performed By: #### 4 6413, 82891, 57881, 45175, 07702 ####[facility] Protein 6.2 g/dL Normal 6.0-8.3 [facility] Comment on above: Order Comment: Yes: Add to Previous draw if able Performed By: #### 4 6413, 71776, 85055, 28927, 32772 ####[facility] Sodium 134 mmol/L Low 136-145 [facility] Comment on above: Order Comment: Yes: Add to Previous draw if able Performed By: #### 4 6413, 80961, 92775, 25241, 31847 ####[facility] Urea nitrogen 12 mg/dL Normal 7-25 [facility] Comment on above: Order Comment: Yes: Add to Previous draw if able Performed By: #### 4 6413, 89219, 27267, 35974, 56655 ####[facility] MAGNESIUM BLOODon 11-11-2017 Magnesium 1.8 mg/dL Low 1.9-2.7 [facility] Comment on above: Order Comment: Yes: Add to Previous draw if able Performed By: #### 4 6413, 34174, 70374, 92494, 64031 ####[facility] [place] [address], [facility] PHOSPHORUS BLOODon 8 Phosphate 2.7 mg/dL Normal 2.5-5.0 [facility] Comment on above: Order Comment: Yes: Add to Previous draw if able Performed By: #### 4 6413, 66713, 13286, 58099, 72273 ####[facility] [place] [address], [facility] TROPONIN-Ion 11-11-2017 Troponin I.cardiac mass conc 1.65 ng/mL Critically high 0.00-0.04 [facility] Comment on above: Order Comment: Yes: Add to Previous draw if able Result Comment: REFE RENCE RANGES: 0.00 - 0.04 ng/ml NORMAL 0.05 - 0.50 ng/ml INDETERMINATE > 0.50 ng/ml CONSISTENT WITH AN M.I. Performed By: #### 4 6413, 25896, 77167, 00833, 21077 ####[facility] CBC COMPLETE BLOOD COUNTon 0 11-10-2017 Erythrocyte distribution width Auto Ratio (RBC) 12.2 % Normal 11.5-15.0 [facility] Comment on above: Order Comment: No: D o not add to previous draw Performed By: #### 5 0608 ####[place] [address] [address] Erythrocytes (RBC) 4.15 10*6/uL Low 4.20-5.70 [facility] Comment on above: Order Comment: No: D o not add to previous draw Performed By: #### 5 0608 ####[facility] Hematocrit (HCT) 35.8 % Low 39.0-50.0 [facility] Comment on above: Order Comment: No: D o not add to previous draw Performed By: #### 5 0608 ####[place] [address] [address] Hemoglobin mass conc (Bld) 12.8 g/dL Low 13.0-17.0 [facility] Comment on above: Order Comment: No: D o not add to previous draw Performed By: #### 5 0608 ####[facility] MCH 30.8 pg Normal 27.0-33.0 [facility] Comment on above: Order Comment: No: D o not add to previous draw Performed By: #### 5 0608 ####[id number] MCHC mass conc (RBC) 35.8 g/dL High 32.0-35.0 [facility] Comment on above: Order Comment: No: D o not add to previous draw Performed By: #### 5 0608 ####[facility] [facility].[address] MCV 86.3 fL Normal 82.0-98.0 [facility] Comment on above: Order Comment: No: D o not add to previous draw Performed By: #### 5 0608 ####[facility] [facility].[address] NRBC 0 % Normal 0-0 [facility] Comment on above: Order Comment: No: D o not add to previous draw Performed By: #### 5 0608 ####[facility] [facility].[address] PLAT CNT 253 10*3/uL Normal 150-400 [facility] Comment on above: Order Comment: No: D o not add to previous draw Performed By: #### 5 0608 ####[place] [address] WBC (Leukocytes) 8.74 10*3/uL Normal 4.00-10.60 [facility] Comment on above: Order Comment: No: D o not add to previous draw Performed By: #### 5 0608 ####[facility] COMP METABOLIC PANELon 11-10 Alanine aminotransferase (ALT) 16 U/L Normal 7-52 [facility] Comment on above: Order Comment: No: D o not add to previous draw Performed By: #### 4 6413, 47236, 39387, 95734, 09402 ####[facility] Albumin 3.8 g/dL Normal 3.5-5.7 [facility] Comment on above: Order Comment: No: D o not add to previous draw Performed By: #### 4 6413, 29850, 67509, 03585, 71499 ####[facility] [place] [address], [facility] ALKALINE PHOSPH 58 IU/L Normal 34-104 [facility] Comment on above: Order Comment: No: D o not add to previous draw Performed By: #### 4 6413, 32769, 62625, 49877, 24583 ####[facility] Aspartate aminotransferase (AST) 30 U/L Normal 13-39 [facility] Comment on above: Order Comment: No: D o not add to previous draw Performed By: #### 4 6413, 79131, 32290, 39407, 41231 ####[facility] [facility].[address] Bilirubin (total) 0.4 mg/dL Normal 0.3-1.0 [facility] Comment on above: Order Comment: No: D o not add to previous draw Performed By: #### 4 6413, 26602, 76434, 74377, 43403 ####[facility] [facility] [place] [address], [facility] Calcium 8.8 mg/dL Normal 8.6-10.3 [facility] Comment on above: Order Comment: No: D o not add to previous draw Performed By: #### 4 6413, 99752, 29325, 91513, 80075 ####[facility] [place] [address], [facility] Chloride 106 mmol/L Normal 98-107 [facility] Comment on above: Order Comment: No: D o not add to previous draw Performed By: #### 4 6413, 21224, 75596, 93504, 78237 ####[facility] [place] [address], [facility] CO2 23 mmol/L Normal 21-31 [facility] Comment on above: Order Comment: No: D o not add to previous draw Performed By: #### 4 6413, 51769, 87139, 50773, 14938 ####[facility] [place] [address], [facility] Creatinine 1.03 mg/dL Normal 0.70-1.30 [facility] Comment on above: Order Comment: No: D o not add to previous draw Performed By: #### 4 6413, 28426, 76965, 31553, 74456 ####[facility] [place] [address], [facility] eGFR (black) mL/min/{1.73_m2} Normal >60 [facility] Comment on above: Order Comment: No: D o not add to previous draw Performed By: #### 4 6413, 20991, 10635, 80540, 25011 ####[facility] [place] [address], [facility] eGFR (non-black) mL/min/{1.73_m2} Normal >60 [facility] Comment on above: Order Comment: No: D o not add to previous draw Performed By: #### 4 6413, 36655, 84580, 29412, 80219 ####[facility] [place] [address], [place] Glucose mass conc 98 mg/dL Normal 70-100 [facility] Comment on above: Order Comment: No: D o not add to previous draw Performed By: #### 4 6413, 36233, 14166, 76322, 05227 ####[facility] [place] [address], [place] Potassium molar conc 4.0 mmol/L Normal 3.5-5.1 [facility] Comment on above: Order Comment: No: D o not add to previous draw Performed By: #### 4 6413, 32002, 90631, 41595, 44476 ####[facility] [facility].[address] Protein 6.3 g/dL Normal 6.0-8.3 [facility] Comment on above: Order Comment: No: D o not add to previous draw Performed By: #### 4 6413, 79910, 36269, 15906, 42891 ####[facility] [facility].[place], [place] [address] [place] [address] Sodium 135 mmol/L Low 136-145 [facility] Comment on above: Order Comment: No: D o not add to previous draw Performed By: #### 4 6413, 21614, 40649, [id number], [id number] ####[facility].[address] Urea nitrogen 16 mg/dL Normal 7-25 [facility] Comment on above: Order Comment: No: D o not add to previous draw Performed By: #### 4 6413, 35800, 20281, 74491, 25890 ####[facility].[address] Cardiovascular Lab Reporton 11-10-2017 Cardiovascular Lab Report [facility] Patient Name: Ronnell Peres [facility] MR #: [id number] Physician: Michelle Mohan M.D.Medicine Service Date: 11/10/2017Division of Birthdate: 4Cardiology Room #: 3AB [id number] CardiovascularServicesUniversi [place] [id number] Fax Cardiovascular Laboratory ReportINDICATION: The patient is a 62-year-old [facility], [facility] 1 hour prior topresentation. His EKG showed ST elevations in the lateral leads with STdepressions in the inferior leads. He was rushed by [facility] to [facility] for emergency coronary intervention. He was given [...] theprocedure. The patient was brought to our mill laborer. The right groin areawas prepped and draped in usual fashion. Using micropuncture technique,the right common femoral artery was accessed and the access was upsized toa 6-Puerto Rican x 11 cm sheath. ACT was measured and additional heparin wasgiven and therapeutic ACT confirmed during the rest of the procedure.A 6-Puerto Rican XB 3.5 guiding catheter was advanced and used to engage the leftmain coronary ostium. Angiography of the left coronary system wasperformed in multiple views. A Chitina wire was advanced into the distalfirst diagonal branch. Balloon angioplasty was performed using an Emerge2.5 x 12 mm balloon inflated at 6 atmospheres in the first diagonal branch.Angiography revealed suboptimal results. This was treated using deploymentof a Synergy 2.5 x 16 mm drug-eluting stent deployed at 11 atmospheres andpost dilated using NC Quantum [place] 2.5 x 12 mm noncompliant ballooninflated at 18 atmospheres throughout the length of the stent repeatedly.Angiography after administration of intracoronary nitroglycerin showedexcellent result with reduction of the stenosis in the diagonal branch to0%. No evidence of dissection or perforation and WYATT-3 flow in the leftcoronary system. The guiding catheter was removed. A 6-Puerto Rican UO2snzsigwhur catheter was advanced and used to engage the right coronaryostium. Angiography of the right coronary artery was performed in multipleviews. The catheter was retracted to the aortic root and non-selectiveinjection was performed in the right coronary cusp. The catheter wasremoved. Limited right femoral angiography was performed in multipleviews. The right femoral arteriotomy was managed with a 5-IvzoxzPhxxg-Whkx device with good hemostasis. The patient was [...] that major diagonal branch has a mid dkxdhyf59% thrombotic stenosis. This was reduced to 0% [...] 11/10/2017/02:41 A/Michelle Pulliam M.D.Date Trans: 11/10/2017 04:12 A/[id number] Normal [facility] HEMOGLOBIN A1Con 11-10-2017 Glucose mass conc 100 mg/dL Normal 70-126 [facility] Comment on above: Order Comment: Yes: Add to Previous draw if able Performed By: #### 4 [id number] ####[facility]3000 [facility].[address] Hemoglobin A1c/Hemoglobin.to noe mass fraction (Bld) 5.1 % Normal 4.0-6.0 [facility] Comment on above: Order Comment: Yes: Add to Previous draw if able Performed By: #### 4 6447 ####[facility] [facility].[address] History and Physicalon 11-10 History and Physical [id number] Admitted: 11/10/2017 Date of : 1955 Attending Physician: Mansi Brooks M.D. Room #: 3AB [id number] Discharge Date: HISTORY AND PHYSICALCHIEF COMPLAINT: Chest pain.HISTORY OF PRESENT ILLNESS: The patient is a 62-year-old gentleman with apast medical history of kidney stones, who presented to the ER at [facility] with severe midsternal chest pain that started 1-hour prior toarrival. The patient was asleep and the pain woke him up from the sleep.The patient also had diaphoresis. He also felt short of breath and dizzy.He denied any syncopal episodes. He also complained of feeling weak. Thepatient had EKG done at the [facility] ER and it showed ST elevationin lead I and aVL and V1. The patient's chest x-ray was negative. Thepatient was life flighted to the [facility] for a stat cardiac cath. before [...] Denies any druguse. 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 He lives with his .FAMILY HISTORY: Positive for liver cirrhosis in his father, who from[place] in his mother, who is still alive.REVIEW [...] affect normal.LABS: We only had CBC from [facility] and it shows white blood cells 9.3,hemoglobin 13.7, hematocrit 37.7 and platelets 281. EKG in the [facility] ER shows ST elevation in lead I, aVL and V1 and ST depression inlead II and aVF. Chest x-ray was done as well and did not show anyinfiltrates. The labs here at [facility] are still pending.ASSESSMENT: ST elevation myocardial infarction, coronary artery disease,heavy smoker, alcohol abuse and history of kidney stones.PLAN: The patient is admitted to ICU for post cardiac catheterizationcare. Cardiology follows. Per their recommendations, the patient will bestarted on aspirin 81 mg daily and Plavix 75 mg daily. He already got 600mg bolus of Plavix in the mill laborer. The patient will also be takingmetoprolol 25 [...] 11/10/2017/04:17 A/Mansi Brooks M.D.Date Trans: 11/10/2017 05:07 A/[id number] Normal [facility] LIPID PROFILEon 11-10-2017 Cholesterol 201 mg/dL High 120-200 [facility] Comment on above: Order Comment: Yes: Add to Previous draw if able Result Comment: CHOL ESTEROL REFERENCE RANGE:20 YEARS AND OLDER CARDIOVASCULAR RISKLess than 200 mg/dl Low Ykyz746 to 239 mg/dl Borderline Kbrm939 mg/dl and greater High Risk Performed By: #### 4 6413, 19687, 80647, 76139, 81445 ####[facility] [place] [address], [place] Cholesterol to HDL Ratio 4.9 {ratio} High .0-4.5 [facility] Comment on above: Order Comment: Yes: Add to Previous draw if able Performed By: #### 4 6413, 63074, 42571, 20688, 13901 ####[facility]3000 [facility].[address] HDL Cholesterol 41 mg/dL Normal 23-92 [facility] Comment on above: Order Comment: Yes: Add to Previous draw if able Result Comment: Slig ht variation in normal range could be due to gender and/or age.HDL CHOLESTEROL REFERENCE RANGE:20 years and older Cardiovascular Risk> or =60 mg/dL Fokgoiepf19 TO 59 mg/dL Low Risk<40 mg/dL High Risk Performed By: #### 4 6413, 87580, 62711, 88894, 55773 ####[facility] [facility].[address] LDL Cholesterol 12 mg/dL Normal 0-130 [facility] Comment on above: Order Comment: Yes: Add to Previous draw if able Result Comment: LDL IS A CALCULATIONLDL IS ONLY VALID IF THE TRIG IS LESS THAN 400. Performed By: #### 4 6413, 01804, 26599, 81080, 90229 ####[facility] [facility].[address] NON-HDL CHOLESTEROL 160 mg/dL Normal [facility] Comment on above: Order Comment: Yes: Add to Previous draw if able Performed By: #### 4 6413, 45853, 55957, 27314, 64855 ####[facility] [facility] [place] [address], [facility] Triglyceride 740 mg/dL High 40-149 [facility] Comment on above: Order Comment: Yes: Add to Previous draw if able Result Comment: TRIG LYCERIDE REFERENCE RANGE:20 YEARS AND OLDER CARDIOVASCULAR RISKLESS THAN 150 mg/dl LOW RBPN140 TO 199 mg/dl BORDERLINE HEWI384 mg/dl AND GREATER HIGH RISK Performed By: #### 4 6413, 48099, 76349, 55184, 82627 ####[facility] VLDL CHOL 148 mg/dL High 0-40 [facility] Comment on above: Order Comment: Yes: Add to Previous draw if able Performed By: #### 4 6413, 74952, 92148, 73053, 23146 ####[facility] MAGNESIUM BLOODon 11-10-2017 Magnesium 2.0 mg/dL Normal 1.9-2.7 [facility] Comment on above: Order Comment: No: D o not add to previous draw Performed By: #### 4 6413, 48199, 28172, 31803, 09606 ####[facility] PHOSPHORUS BLOODon 8 Phosphate 3.5 mg/dL Normal 2.5-5.0 [facility] Comment on above: Order Comment: No: D o not add to previous draw Performed By: #### 4 6413, 17875, 32385, 81041, 60032 ####[facility] PROTHROMBIN TIMEon 8 INR Coag RelTime (PPP) 1.07 {INR} Normal 0.91-1.16 [facility] Comment on above: Order Comment: Yes: Add [...] OF ACTION, CLINICALEFFECTIVENESS, AND OPTIMAL THERAPEUTIC RANGE. [id number];108:231S-246S. Performed By: #### 5 6101 ####[facility] Prothrombin time (PT) Coag time (PPP) 13.9 s Normal 12.3-14.8 [facility] Comment on above: Order Comment: Yes: Add to Previous draw if able Result Comment: ALL RESULTS MUST BE INTERPRETED WITH RESPECT TO BLOOD DRAWING ARTIFACTOR DILUTION ERROR OF ANTICOAGULANT AT THE TIME OF SAMPLING. Performed By: #### 5 6101 ####[facility] TROPONIN-Ion 11-10-2017 Troponin I.cardiac mass conc 2.25 ng/mL Critically high 0.00-0.04 [facility] Comment on above: Result Comment: M-CR ITICAL RESULT(S) REVIEWED, CALLED TO AND READ BACK BY SANTOS RN @ 1122REFERENCE RANGES: 0.00 - 0.04 ng/ml NORMAL 0.05 - 0.50 ng/ml INDETERMINATE > 0.50 ng/ml CONSISTENT WITH AN M.I. Performed By: #### 4 6413, 53094, 56431, 76255, 01577 ####[facility] [facility].[address] Vital Signs Date Time Vital Sign Value Performing Clinician Facility 03-30-2024 09:11050 Body height 167.6 cm Portillo Ludwig MD Work Phone: [facility] 03-30-2024 09:110500 Body mass index (BMI) [Ratio] 23.89 kg/m2 Portillo Ludwig MD Work Phone: [facility] 03-30-2024 09:11-0500 Body weight 67.13 kg Portillo Ludwig MD Work Phone: [facility] 03-30-2024 09:11-0500 Diastolic blood pressure 77 mm[Hg] Portillo Ludwig MD Work Phone: [facility] 03-30-2024 09:11-0500 Systolic blood pressure 122 mm[Hg] Portillo Ludwig MD Work Phone: [facility] 07-17-2023 14:48-0500 Blood Pressure Location Aaron NILL [facility] [place] 07-17-2023 14:48-0500 Diastolic blood pressure 64 mm[Hg] Aaron NILL [facility] 07-17-2023 14:48-0500 Heart rate 64 /min Aaron NILL [facility] 07-17-2023 14:48-0500 Respiratory rate 16 /min Aaron NILL [facility] 07-17-2023 14:48-0500 Systolic blood pressure 116 mm[Hg] Aaron NILL [facility] 06-17-2023 10:53-0500 Body height 167.6 cm Portillo Ludwig MD Work Phone: [facility] 06-17-2023 10:53-0500 Body mass index (BMI) [Ratio] 23.89 kg/m2 Portillo Ludwig MD Work Phone: [facility] 06-17-2023 10:53-0500 Body weight 67.13 kg Portillo Ludwig MD Work Phone: [facility] 06-17-2023 10:53-0500 Diastolic blood pressure 92 mm[Hg] Portillo Ludwig MD Work Phone: [facility] 06-17-2023 10:53-0500 Systolic blood pressure 145 mm[Hg] Portillo Ludwig MD Work Phone: [facility] 02-19-2023 13:16-0400 Heart rate 76 /min Portillo Timmis [facility] 02-19-2023 13:16-0400 SaO2% (BldA) [Mass fraction] 94 % Portillo Timmis [facility] 02-19-2023 13:16-0400 Respiratory rate 16 /min Portillo Timmis [facility] 02-19-2023 13:15-0400 Blood Pressure Location Portillo Timmis [facility] 02-19-2023 13:15-0400 Diastolic blood pressure 68 mm[Hg] Portillo Timmis [facility] 02-19-2023 13:15-0400 Mean blood pressure 82 mm[Hg] Portillo Timmis [facility] 02-19-2023 13:15-0400 Systolic blood pressure 110 mm[Hg] Portillo Timmis [facility] 02-19-2023 13:15-0400 Body temperature 97.7 [degF] Portillo Timmis [facility] 02-19-2023 12:32-0400 Heart rate 69 /min Portillo Timmis [facility] 02-19-2023 12:32-0400 SaO2% (BldA) [Mass fraction] 95 % Portillo Timmis [facility] 02-19-2023 12:31-0400 Diastolic blood pressure 69 mm[Hg] Portillo Timmis [facility] 02-19-2023 12:31-0400 Mean blood pressure 82 mm[Hg] Portillo Timmis [facility] 02-19-2023 12:31-0400 Systolic blood pressure 108 mm[Hg] Portillo Timmis [facility] 02-19-2023 12:31-0400 Respiratory rate 14 /min Portillo Timmis [facility] 02-19-2023 12:25-0400 Blood Pressure Location Portillo Timmis [facility] 02-19-2023 12:25-0400 Body temperature 97.88 [degF] Portillo Timmis [facility] 02-19-2023 12:25-0400 Diastolic blood pressure 75 mm[Hg] Portillo Timmis [facility] 02-19-2023 12:25-0400 Heart rate 72 /min Portillo Timmis [facility] 02-19-2023 12:25-0400 Mean blood pressure 85 mm[Hg] Portillo Timmis [facility] 02-19-2023 12:25-0400 Respiratory rate 22 /min Portillo Timmis [facility] 02-19-2023 12:25-0400 SaO2% (BldA) [Mass fraction] 95 % Portillo Timmis [facility] 02-19-2023 12:25-0400 Systolic blood pressure 106 mm[Hg] Portillo Timmis [facility] 02-19-2023 12:10-0400 Blood Pressure Location Portillo Timmis [facility] 02-19-2023 12:10-0400 Mean blood pressure 90 mm[Hg] Portillo Timmis [facility] 02-19-2023 12:10-0400 Respiratory rate 24 /min Portillo Timmis [facility] 02-19-2023 12:05-0400 Mean blood pressure 86 mm[Hg] Portillo Timmis [facility] 02-19-2023 12:05-0400 Respiratory rate 25 /min Portillo Timmis [facility] 02-19-2023 11:58-0400 Body temperature 98.06 [degF] Portillo Timmis [facility] 02-19-2023 11:55-0400 FIO2 100 % Portillo Timmis [facility] 02-19-2023 11:55-0400 Respiratory rate 13 /min Portillo Timmis [facility] 02-19-2023 11:50-0400 FIO2 100 % Portillo Timmis [facility] 02-19-2023 11:45-0400 FIO2 60 % Portillo Timmis [facility] 02-19-2023 09:13-0400 Heart rate 80 /min Portillo Timmis [facility] 02-19-2023 09:03-0400 Mean blood pressure 102 mm[Hg] Portillo Timmis [facility] 02-19-2023 09:01-0400 Body temperature 97.16 [degF] Portillo Timmis [facility] 01-25-2023 11:09-0400 Body temperature 97.59 [degF] Dylan Zaidi MD Work Phone: [facility] 01-25-2023 11:09-0400 Diastolic blood pressure 91 mm[Hg] Dylan Zaidi MD Work Phone: [facility] 01-25-2023 11:09-0400 Heart rate 70 /min Dylan Zaidi MD Work Phone: [facility] 01-25-2023 11:09-0400 Respiratory rate 16 /min Dylan Zaidi MD Work Phone: [facility] 01-25-2023 11:09-0400 SaO2% (BldA) [Mass fraction] 96 % Dylan Zaidi MD Work Phone: [facility] 01-25-2023 11:09-0400 Systolic blood pressure 155 mm[Hg] Dylan Zaidi MD Work Phone: [facility] 10-22-2022 14:01-0400 Blood Pressure Location Aaron NILL [facility] [place] 10-22-2022 14:01-0400 Diastolic blood pressure 64 mm[Hg] Aaron NILL [facility] 10-22-2022 14:01-0400 Heart rate 80 /min Aaron NILL [facility] [place] 10-22-2022 14:01-0400 Respiratory rate 16 /min Aaron NILL [facility] 10-22-2022 14:01-0400 Systolic blood pressure 116 mm[Hg] Aaron NILL [facility] [place] 01-21-2022 15:43-0400 Blood Pressure Location Aaron NILL [facility] [place] 01-21-2022 15:43-0400 Diastolic blood pressure 88 mm[Hg] Aaron NILL [facility] [place] 01-21-2022 15:43-0400 Heart rate 72 /min Aaron NILL [facility] [place] 01-21-2022 15:43-0400 Respiratory rate 16 /min Aaron NILL [facility] [place] 01-21-2022 15:43-0400 Systolic blood pressure 132 mm[Hg] Aaron TRISTANL [facility] [place] 11-08-2021 14:46-0400 Blood Pressure Location Aaron TRISTANL [facility] [place] 11-08-2021 14:46-0400 Diastolic blood pressure 86 mm[Hg] Aaron TRISTANL [facility] [place] 11-08-2021 14:46-0400 Heart rate 76 /min Aaron TRISTANL [facility] [place] 11-08-2021 14:46-0400 Respiratory rate 16 /min Aaron TRISTANL [facility] [place] 11-08-2021 14:46-0400 Systolic blood pressure 142 mm[Hg] Aaron KELSEY [facility] [place] 07-11-2021 11:45-0500 Heart rate 78 /min David Robbins [facility] 07-11-2021 11:45-0500 Respiratory rate 16 /min [facility] 07-11-2021 11:40-0500 Diastolic blood pressure 76 mm[Hg] [facility] 07-11-2021 11:40-0500 SaO2% (BldA) [Mass fraction] 95 % [facility]oseph [facility] 07-11-2021 11:40-0500 Systolic blood pressure 125 mm[Hg] David Roimelda [facility] 07-11-2021 07:29-0500 Body temperature 97.59 [degF] [facility] 07-10-2021 08:53-0500 Body height 167.6 cm Abdiel [facility]ff [facility] 07-10-2021 07:08-0500 Body temperature 97.59 [degF] Abdiel Neff MD Work Phone: [facility] 07-10-2021 07:08-0500 Diastolic blood pressure 78 mm[Hg] Abdiel Neff MD Work Phone: [facility] 07-10-2021 07:08-0500 Heart rate 65 /min Abdiel Neff MD Work Phone: [facility] 07-10-2021 07:08-0500 Respiratory rate 20 /min Abdiel Neff MD Work Phone: [facility] 07-10-2021 07:08-0500 SaO2% (BldA) [Mass fraction] 94 % Abdiel Neff MD Work Phone: [facility] 07-10-2021 07:08-0500 Systolic blood pressure 115 mm[Hg] Abdiel Neff MD Work Phone: [facility] 07-05-2021 11:40-0500 Body mass index (BMI) [Ratio] 21.79 kg/m2 Abdiel Neff MD Work Phone: [facility] [employer] 07-05-2021 11:40-0500 Body weight 61.24 kg Abdiel Neff MD Work Phone: [facility] Encounters Encounter Date Encounter Type Care Provider Facility Start: 12-19-2024 End: 12-19-2024 ambulatory [facility] Start: 08-29-2024 End: 08-31-2024 ambulatory CHANDLER DEAN [facility] Start: 08-29-2024 End: 08-31-2024 Subsequent hospital visit by physician Svetlana Austin Dr Room 2 [facility] Comment on above: Screening PSA (prost ate specific antigen) Renal stone Start: 06-22-2024 End: 06-22-2024 ambulatory [facility] Start: 03-30-2024 End: 03-30-2024 Bamboo flowsheet Portillo [...] 03-30-2024 ambulatory PORTILLO LUDWIG Not Available Start: 09-23-2023 End: 09-24-2023 ambulatory Aaron R NILKrista Facility:[facility] Start: 09-23-2023 End: 09-23-2023 Patient encounter procedure Aaron TRISTANL [facility] [place] Start: 09-09-2023 End: 09-10-2023 ambulatory Aaron R NILL Facility: [place] Start: 09-09-2023 End: 09-09-2023 Patient encounter procedure Aaron R NILL [facility] [place] Start: 09-02-2023 End: 09-02-2023 ambulatory Aaron R Nill Facility:[facility] Start: 09-02-2023 End: 09-03-2023 ambulatory Aaron R LOW [facility] Work Phone: Start: 09-02-2023 End: 09-02-2023 Departed Referred MD Aaron Kelsey Work Phone: [facility] Start: 07-17-2023 End: 07-18-2023 ambulatory [facility]ILL [facility] Start: 07-17-2023 End: 07-17-2023 Patient encounter procedure Aaron R NILL General Surgery [facility] [place] Start: 06-17-2023 End: 06-17-2023 Office outpatient visit [...] 02-19-2023 End: 02-19-2023 ambulatory Portillo H Timmis [facility] Start: 02-19-2023 End: 02-19-2023 Admission to same day surgery center Portillo Valenciaabraham [facility] Start: 02-17-2023 End: 02-18-2023 ambulatory Portillo H Timmis [facility] Start: 01-25-2023 End: 01-25-2023 Emergency department patient visit Dylan Zaidi MD Work Phone: [facility] Comment on above: Intermittent chest p ain (Primary Dx); History of epistaxis Start: 10-22-2022 End: 10-23-2022 ambulatory Aaron KELSEY Facility: [place] Start: 10-22-2022 End: 10-22-2022 Patient encounter procedure Aaron KELSEY General [facility] [place] Start: 02-20-2022 End: 02-22-2022 Subsequent hospital visit by physician Dylan Zaidi MD Work Phone: [facility] Start: 01-21-2022 End: 01-21-2022 Patient encounter procedure Aaron KELSEY General Surgery [place]Said [place] Start: 12-18-2021 End: 12-19-2021 ambulatory CAM FORREST Facility:[facility] Start: 12-16-2021 End: 12-17-2021 ambulatory CAM FORREST Facility:[facility] Start: 11-08-2021 End: 11-08-2021 Patient encounter procedure Aaron White LOW General Surgery [place] [place] Start: 08-20-2021 End: 08-22-2021 Subsequent hospital visit by physician Svetlana Austin Dr Room 4 [facility]iology Comment on above: Ureteral stone Start: 07-29-2021 End: 07-31-2021 Subsequent hospital visit by physician Svetlana Cat Scan Room [facility] Comment on above: Renal colic; LLQ pain; Incomplete bladder emptying Start: 07-18-2021 End: 07-18-[address] SUSAN BOYLE Facility:[facility] Start: 07-16-2021 End: 07-16-2021 Subsequent hospital visit by physician Dylan Zaidi MD Work Phone: [facility] Comment on above: Ureteral stone; Nausea; Decreased appetite Start: 07-11-2021 End: 07-11-2021 Emergency department patient visit David Reevesimelda [facility] ED Comment on above: Left lower quadrant abdominal pain (Primary Dx); Urinary tract infection with hematuria, site unspecified; Ureteral calculus Start: 07-09-2021 End: 07-10-2021 Subsequent hospital visit by physician Abdiel Neff MD Work Phone: [facility] Start: 07-05-2021 End: 07-09-2021 Patient encounter status [facility] Schedule [facility] PRE ADMIT Start: 07-05-2021 End: 07-09-2021 Subsequent hospital visit by physician Svetlana Nietoid19 [facility] Comment on above: Preop testing Start: 06-25-2021 End: 06-26-2021 ambulatory HARISH Emanuel Facility:[facility] Start: 06-22-2021 End: 06-23-2021 ambulatory WARNER TRIPP Facility:[facility] Start: 05-23-2021 End: 05-24-2021 ambulatory NELLY WALTERS Facility:[facility] Start: 04-19-2021 End: 04-19-2021 ambulatory NELLY WALTERS Facility:[facility] Start: 04-13-2021 End: 04-13-[address] DYLAN ZAIDI Facility:[facility] Start: 01-02-2021 ambulatory DONN CROWELL Facility:[facility] Start: 11-17-2017 End: 11-18-2017 Patient encounter DEFAULT PHYSICIAN Facility:[facility] Start: 11-10-2017 End: 11-11-2017 Evaluation and management of inpatient DONN AMARAL Facility:[facility] Procedures Date Procedure Procedure Detail Performing Clinician Start: 08-29-2024 Radiologic exam abdo men 1 view Chandler Dean PA-C Work Phone: Start: 08-29-2024 PSA screening Chandler Kaye PA-C Work Phone: Start: 09-02-2023 Repair of left ingui nal hernia Aaron TRISTANKrista Start: 02-19-2023 Nasal cautery Portillo Ti mmis Start: 01-25-2023 Comprehensive metabo lic panel Jermain Allen PA-C Work Phone: Start: 01-25-2023 Ecg routine ecg w/le ast 12 lds w/i&r Jermain Alejandro PA-C Work Phone: Start: 01-25-2023 Radiologic exam ches t single view Jermain Alejandro PA-C Work Phone: Start: 08-20-2021 Radiologic exam abdo men 1 view Dolly Julio Cesar Parsell OPERATIONS ENGINEER - PAINTING TECHNICIAN Work Phone: Start: 07-29-2021 Ct abdomen & pelvis w/o contrast material Dolly W Parsell OPERATIONS ENGINEER - PAINTING TECHNICIAN Work Phone: Start: 07-29-2021 Basic metabolic pane l calcium total Dolly W Parsell OPERATIONS ENGINEER - PAINTING TECHNICIAN Work Phone: Start: 07-16-2021 Basic metabolic pane l calcium total Dolly W Parsell OPERATIONS ENGINEER - PAINTING TECHNICIAN Work Phone: Start: 07-11-2021 Ct abdomen & [...] 07-10-2021 Basic metabolic pane l calcium total Abdiel Neff MD Work Phone: Start: 07-09-2021 Fluoroscopy during operation Abdiel Neff MD Work Phone: Start: 07-09-2021 End: 07-09-2021 Cysto/uretero w/lithotripsy &indwell stent insrt Abdiel Neff MD Work Phone: Start: 07-05-2021 COVID-19 [...] Treatment Date Care Activity Detail Author Start: 2029 Respiratory Syncytia l Virus (RSV) or age 60 yrs+ (1 - 1-dose 75+ series) Respiratory Syncytial Virus (RSV) or age 60 yrs+ (1 - 1-dose 75+ series) [facility] Start: 12-09-2024 Influenza vaccination Flu vacc ine (Season Ended) [facility] Start: 09-12-2024 End: 09-12-2024 Patient encounter procedure 09/12/2024 2:45 PM EDT Office Visit [facility] [address] [place] [address] Chandler Dean, PA-C [address] [place] [address] [address] [place] [id number] 1yr KUB PSA PVR/LM to r/s appt, no provider in the office [facility] Comment on above: 1yr KUB PSA PVR/LM t o r/s appt, no provider in the office Start: 05-11-2024 Annual Wellness Visi t (Medicare Advantage) Annual Wellness Visit (Medicare Advantage) [facility] Start: 03-30-2024 End: 03-30-2024 Patient encounter procedure 03/30/2024 9:10 AM EST Office Visit [facility] [address] [facility] [address] [place] [id number] Portillo Ludwig MD [address] [facility] [address] [place] [address] Arrived [facility] Comment on above: Arrived Start: 01-10-2024 COVID-19 Vaccine ( season) COVID-19 Vaccine ( season) [facility] Start: 08-26-2023 End: 08-26-2023 Patient encounter procedure 08/26/2023 10:30 AM EDT Office Visit [facility] [place] [address] 1 year PSA, KUB [facility] Comment on above: 1 year PSA, KUB Start: 12-09-2022 Influenza vaccination Flu vaccine (# 1) [facility] Start: 08-25-2022 End: 08-25-2022 Patient encounter procedure 08/25/2022 Office Visit Urology [facility] Start: 07-29-2022 Creatinine measurement Creatinine mo [facility] Start: 07-29-2022 Potassium monitoring Potassium monit [facility] Start: 07-16-2022 Creatinine measurement Creatinine mo [facility] Start: 07-16-2022 Potassium monitoring Potassium monit [facility] Start: 07-11-2022 Creatinine measurement Creatinine mo [facility] Start: 07-11-2022 Potassium monitoring Potassium monit [facility] Start: 07-10-2022 Creatinine measurement Creatinine mo [facility] Start: 07-10-2022 Potassium monitoring Potassium monit [facility] Start: 02-21-2022 End: 02-21-2022 Patient encounter procedure 02/21/2022 Office Visit Urology Abdiel Neff MD [address] [facility], [address] [place] [address] [facility] Start: 01-09-2022 Influenza vaccination Flu vacc ine (Season Ended) [facility] Start: 12-09-2021 Influenza vaccination Flu vaccine (# 1) [facility] Start: 08-22-2021 End: 08-22-2021 Patient encounter procedure 08/22/2021 Office Visit Urology Abdiel Neff MD [address] [facility], [address] [place] [address] [facility] Start: 07-11-2021 End: 07-11-2021 Patient encounter procedure 07/11/2021 Office Visit Urology Dolly Lopez, OPERATIONS ENGINEER - PAINTING TECHNICIAN [address] [facility] [address] [place] [id number] [facility] Start: 07-05-2021 Annual Wellness Visi t (AWV) Annual Wellness Visit (AWV) [facility] Start: 09-01-2021 Influenza vaccination Flu vaccine (# 1) [facility] Start: 10-15-2019 DTaP/Tdap/Td vaccine (1 - Tdap) DTaP/Tdap/Td vaccine (1 - Tdap) [facility] Start: 2019 Pneumococcal 65+ yea rs Vaccine (1 of 1 - PPSV23) Pneumococcal 65+ years Vaccine (1 of 1 - PPSV23) [facility] Start: 02-06-2004 Shingles Vaccine (1 of 2) Shingles Vaccine (1 of 2) [facility] Start: 1999 Screening for malign ant neoplasm of colon [facility] Start: 1973 DTaP/Tdap/Td vaccine (1 - Tdap) DTaP/Tdap/Td vaccine (1 - Tdap) [facility] Start: 1973 Pneumococcal 50+ yea rs Vaccine (1 of 2 - PCV) Pneumococcal 50+ years Vaccine (1 of 2 - PCV) [facility] Start: 02-06-1972 Hepatitis C screening [facility] Start: 1966 Depression Screen Depression Screen [facility] Start: 02-06-1964 Lipid panel [facility] Start: 02-06-1960 Pneumococcal 65+ yea rs Vaccine (1 - PCV) Pneumococcal 65+ years Vaccine (1 - PCV) [facility] Start: 1959 COVID-19 Vaccine (1) COVID-19 Vaccin e (1) [facility] Start: 1954 COVID-19 Vaccine (#1) COVID-19 Vacci ne (#1) [facility] Start: 1954 Creatinine measurement Creatinine mo nitoring [facility] Start: 1954 Hepatitis C screening [facility] C [facility] Start: 1954 Potassium monitoring Potassium monit [facility] CT ABDOMEN PELVIS WO CONTRAST Additional Contrast? None CT ABDOMEN PELVIS WO CONTRAST Additional Contrast? None Imaging STAT 07/11/2021 9:16 AM EST [facility] [employer] Phone: End: 07-16-2021 Culture, Urine [facility] Phone: Comment on above: 1 Occurrences starti ng 07/16/2021 until 07/16/2021 End: 07-29-2021 Culture, Urine [facility] Work Phone: Comment on above: 1 Occurrences starti ng 07/29/2021 until 07/29/2021 EKG 12 Lead EKG 12 Lead ECG STAT 01/25/2023 12:13 PM EDT [facility] Oxygen therapy [[facility] Data Set] Initiate Oxygen Therapy Protocol Respiratory Care Routine As Needed until discontinued starting 07/09/2021 [facility] Work Phone: Comment on above: As Needed until disc ontinued starting 07/09/2021 Immunizations Immunization Date Immunization Notes Care Provider Fa cility NEGATED: Highlighted row has not occurred!07-17-2023 influenza virus vaccine, unspecified formulation Aaron TRISTANKrista [facility] [place] Payers Date Payer Category Payer Medicaid A[employer]NA MEDICARE A DVANTAGE [id number] 2021 Medicare AETNA MEDICARE A DVANTAGE AETNA MEDICARE REPLACEMENT [id number] 2021-Present [address] [place] [address] [id number] 1959 Medicare [id number]. [id number] 1959 Self-pay 1959 Unknown [id number] 1954 Unknown [id number] 2.16.840.1.879488.3.579.2. 593 1954 Unknown [id number] 2.16.840.1.451773.3.579.2. 593 1954 Unknown [id number] 2.16.840.1.774173.3.579.2. 593 1954 Unknown [id number] 2.16.840.1.962227.3.579.2. 593 1954 Unknown [id number] 2.16.840.1.361265.3.579.2. 593 1954 Unknown [id number] 2.16.840.1.178237.3.579.2. 593 1954 Unknown [id number] 2.16.840.1.593273.3.579.2. 593 1954 Unknown [id number] 2.16.840.1.154646.3.579.2. 593 1954 Unknown [id number] 2.16.840.1.022947.3.579.2. 593 1954 Unknown [id number] 2.16.840.1.377718.3.579.2. 727 1954 Unknown [id number] 2.16.840.1.981251.3.579.2. 727 1954 Unknown [id number] 2.16.840.1.952675.3.579.2. 727 1954 Unknown [id number] 2.16.840.1.309088.3.579.2. 727 1954 Unknown [id number] 2.16.840.1.636330.3.579.2. 727 1954 Unknown [id number] 2.16.840.1.583879.3.579.2. 727 1954 Unknown [id number] 2.16.840.1.812622.3.579.2. 727 1954 Unknown [id number] 2.16.840.1.428730.3.579.2. 1259 1954 Unknown [id number] 2.16.840.1.640960.3.579.2. 1259 1954 Unknown [id number] 2.16.840.1.323292.3.579.2. 1259 1954 Unknown [id number] 2.16.840.1.818436.3.579.2. 1259 1954 Unknown [id number] 2.16.840.1.748777.3.579.2. 173 1954 Unknown [id number] 2.16.840.1.042891.3.579.2. 173 [facility] [id number] Unknown Unknown [id number] 2.16.840.1.236320.3.579.2. 531 Social History Date Type Detail Facility Start: 07-05-2021 End: 02-21-2022 Tobacco smoking status MEIS Smokes tobacco daily [facility] Start: 05-11-1969 History of tobacco use Cigarette Smo ker [facility] Phone: Start: 07-05-2021 End: 01-25-2023 Cigarettes smoked current (pack per day) - Reported 1 [facility] Phone: Start: 07-05-2021 End: 02-21-2022 Tobacco use and exposure Smokeless tobacco non-user [facility] Phone: Start: 07-09-2021 End: 01-25-2023 Alcohol intake Current drinker of alcohol (finding) [facility] Phone: Start: 07-05-2021 History SDOH Alcohol Comment daily [facility] Phone: Start: 1955 [facility] Start: 06-11-2021 End: 07-11-2021 Exposure to SARS-CoV-2 (event) Not sure [facility] [employer] Work Phone: Start: 11-08-2021 End: 10-22-2022 Tobacco smoking status Heavy tobacco smoker (finding) [facility] [place] Tobacco smoking status Former sm okeless tobacco user, quit more than 30 days ago [facility] [place] Start: 02-21-2022 End: 01-25-2023 Sex Assigned At Male [facility] [place] Start: 09-03-2023 Tobacco smoking stat [facility] Smoker (finding) [facility] Start: 1955 Sex Assigned At Male F [facility] Start: 06-20-2012 Sex Male (finding) Lita puente [facility] Medical Equipment Procedure Code Equipment Code Equipment Origin al Text Equipment Identifier Dates Cystoscopy, with ureteral calculus manipulation and stent placement STENT BARD MULTI [id number] 22-32CM FDA Start: 02-23-2017 Stent Uret 6 Frx 26 Cm Firm Monofilament Tria - [id number] Start: 07-09-2021 STENT CONTOUR 6F R X 22-30CM FDA Start: 02-16-2017 Functional Status Date Assessment Result Facility 07-17-2023 Functional Status N/A [facility] 10-22-2022 Functional Status N/A [facility] 01-21-2022 N/A [facility] [place] 11-08-2021 Functional Status N/A [facility] Clinical Notes 06-23-2021 to 12-19-2024 Portillo Ludwig MD - 03/30/2024 9:10 AM Elsa Ludwig MD - 06/17/2023 11:10 AM Ferdinand Mott RN - 01/25/2023 1:17 PM Clive Mott RN - 01/25/2023 12:43 PM EDTInstructionsAttachments Note Date & Type Note Facility 12-19-2024 Note [place] [facility] Mao Peres is a 69 y.o. year old male patient being seen for 6 month follow up. Patient states he has been feeling good and bad. Patient state he has a lot of fatigue and feels lost since he had retired. Patient complains of SOB, chest pain, SALINAS, dizziness/lightheaded with position changes, stomach problems, feeling bloated. Patient denies leg pain/swelling, palpitations/racing heart. Patient Active Problem List Diagnosis Acid reflux Chest pain Coronary arteriosclerosis Myocardial infarction (CMS/HCC) Pulmonary emphysema (CMS/HCC) Tobacco user Benign essential HTN Mixed dyslipidemia Alcohol abuse Anticoagulated Antiplatelet or antithrombotic long-term use Anxiety Body mass index (BMI) of 20 to 24 BPH with obstruction/lower urinary tract symptoms Calculus of kidney Kidney stone Dyspnea on exertion Epistaxis History of myocardial infarction History of renal calculi Hydronephrosis Hyperglycemia Hyperlipidemia Inguinal hernia Porokeratosis Ureteral calculus Angioedema Hypertension DNS (deviated nasal septum) Family History Problem Relation Name Age of Onset Heart attack Mother Social History Tobacco Use Smoking status: Every Day Current packs/day: 0.50 Types: Cigarettes Smokeless tobacco: Never Substance Use Topics Alcohol use: Yes Alcohol/week: 30.0 standard drinks of alcohol Types: 30 Cans of beer per week EKATERINA Santiago is seen in follow-up. This is the first time I am meeting him. He recently was following up with Dr. Cam Forrest from our group. I had met him in 2018 at the time of his lateral STEMI and performed PCI to the diagonal branch. he is a 69-year-old man with history of coronary artery disease [Lateral STEMI related to thrombotic occlusion of the diagonal branch treated by emergency drug-eluting stenting in 2018], hypertension and hyperlipidemia. He is maintained on DAPT with aspirin and clopidogrel per his own choice according to recent notes. today he reports that he has been having symptoms of chest pain located in the center of the chest sometimes on the left side, happening on and off, with rest or with exertion and described as pressure sensation, relieved on its own, lasting 10 minutes or so each time. He also has shortness of breath on exertion NYHA class II symptoms. He has no leg swelling and no palpitations. Review of Systems Constitutional: Positive for malaise/fatigue. Cardiovascular: Positive for chest pain. Respiratory: Positive for shortness of breath. Gastrointestinal: Positive for bloating, abdominal pain and change in bowel habit. Neurological: Positive for dizziness and headaches. Objective Visit Vitals BP 101/63 (BP Location: Left arm, Patient Position: Sitting) Pulse 79 Ht 1.676 m (5' 6 ) Wt 66.7 kg (147 lb) SpO2 94% BMI 23.73 kg/m??? Smoking Status Every Day BSA 1.76 m??? Physical Exam Constitutional: Appearance: He is well-developed. He is not ill-appearing. HENT: Head: Normocephalic and atraumatic. Nose: Nose normal. Eyes: General: No scleral icterus. Pupils: Pupils are equal, round, and reactive to light. Neck: Thyroid: No thyromegaly. Vascular: No JVD. Cardiovascular: Rate and Rhythm: Normal rate and regular rhythm. Pulses: Radial pulses are 2+ on the right side and 2+ on the left side. Heart sounds: Normal heart sounds. No murmur heard. No friction rub. No gallop. Pulmonary: Effort: Pulmonary effort is normal. No respiratory distress. Breath sounds: Normal breath sounds. No wheezing or rales. Chest: Chest wall: No tenderness. Abdominal: General: Bowel sounds are normal. There is no distension. Palpations: Abdomen is soft. Tenderness: There is no abdominal tenderness. Musculoskeletal: General: No swelling. Cervical back: Neck supple. Skin: General: Skin is warm and dry. Neurological: General: No focal deficit present. Mental Status: He is alert and oriented to person, place, and time. Psychiatric: Mood and Affect: Mood normal. Behavior: Behavior is cooperative. Judgment: Judgment normal. Allergies Allergies Allergen Reactions Lisinopril Angioedema Medications Current Outpatient Medications: albuterol 90 mcg/actuation inhaler, Inhale 1 puff every 4 (four) hours if needed., Disp: , Rfl: amLODIPine (Norvasc) 5 mg tablet, TAKE 1 TABLET BY MOUTH DAILY, Disp: 90 tablet, Rfl: 3 aspirin 81 mg EC tablet, Take 1 tablet (81 mg) by mouth once daily as directed., Disp: 90 tablet, Rfl: 3 clopidogrel (Plavix) 75 mg tablet, TAKE 1 TABLET BY MOUTH ONCE DAILY DIRECTED, Disp: 90 tablet, Rfl: 3 doxepin (SINEquan) 10 mg capsule, TAKE 1 CAPSULE BY MOUTH THREE TIMES DAILY NEEDED FOR ANXIETY for 30 days, Disp: , Rfl: isosorbide mononitrate ER (Imdur) 30 mg 24 hr tablet, Take 1 tablet (30 mg) by mouth once daily as directed. Do not crush or chew., Disp: 90 table (more content not included)... [facility] 06-22-2024 Note [facility] CARDIOLOGY PROGR ESS NOTE HPI: Ronnell Peres is a 69 y.o. male With a past medical history including hypertension, hyperlipidemia, CAD, and angioedema. Patient presents to cardiac clinic today for follow-up. Patient here for 6 mo follow up CAD, hypertension, and hyperlipidemia. Denies chest pain, notes that he has some indigestion with heavy foods that is relieved with antacids. He is just getting over a cold and is breathing much better. Says he stopped drinking before Arlin, which has helped him cut back on smoking. Denies any exertional chest pain. Cardiology ROS: 10 point ROS is performed and is negative unless otherwise specified in HPI. Visit Vitals Smoking Status Every Day Allergies Allergen Reactions Lisinopril Angioedema Medications: Current Outpatient Medications on File Prior to Visit Medication Sig Dispense Refill amLODIPine (Norvasc) 5 mg tablet Take 1 tablet (5 mg) by mouth once daily as directed. 90 tablet 3 aspirin 81 mg EC tablet Take 1 tablet (81 mg) by mouth once daily as directed. 90 tablet 3 buPROPion SR (Wellbutrin SR) 150 mg 12 hr tablet Take 1 tablet (150 mg) by mouth in the morning and at bedtime. Do not crush, chew, or split. (Patient not taking: Reported on 07/03/2023) 60 tablet 1 clopidogrel (Plavix) 75 mg tablet TAKE 1 TABLET BY MOUTH ONCE DAILY DIRECTED 90 tablet 3 doxepin (SINEquan) 10 mg capsule TAKE 1 CAPSULE BY MOUTH THREE TIMES DAILY NEEDED FOR ANXIETY for 30 days hydrOXYzine HCL (Atarax) 25 mg tablet Take 1 tablet by mouth if needed each day. isosorbide mononitrate ER (Imdur) 30 mg 24 hr tablet Take 1 tablet (30 mg) by mouth once daily as directed. Do not crush or chew. 90 tablet 3 metoprolol succinate XL (Toprol-XL) 25 mg 24 hr tablet Take 0.5 tablets (12.5 mg) by mouth in the morning. Do not crush or chew. (Patient not taking: Reported on 12/07/2023) 45 tablet 3 metoprolol succinate XL (Toprol-XL) 25 mg 24 hr tablet Take 1 tablet (25 mg) by mouth once daily as directed. Do not crush or chew. 90 tablet 3 nitroglycerin (Nitrostat) 0.[address] 1 tablet (0.4 mg) under the tongue every 5 (five) minutes if needed for chest pain. 25 tablet 3 rosuvastatin (Crestor) 40 mg tablet TAKE 1 TABLET BY MOUTH ONCE DAILY AT BEDTIME 90 tablet 3 tamsulosin (Flomax) 0.4 mg [...] nature, occurs mostly at rest HTN HLD Plan: -Continue aspirin, Plavix, rosuvastatin, metoprolol for CAD -Patient is On DAPT and wishes to maintain DAPT. Understands risks of bleeding. -Continue amlodipine, Toprol for hypertension -Continue rosuvastatin for hyperlipidemia -Optimize medical management -Aggressive risk factor modification -I discussed consider repeating stress test to assess for ischemia. Patient declines at this time. He does not have any exertional symptoms. -Plan of care discussed with patient. All questions were answered. Patient voices understanding and is agreeable with current plan. -Patient was educated on red flag symptoms. Strict return precautions were provided. Patient verbalizes understanding -Follow-up in cardiology clinic in 6 months, or sooner as necessary. Cam Forrest MD [facility] 03-30-2024 History of Present illness Narrative Subjective [...] anesthesia. Schedule HAE. documented in this encounter [facility] 06-17-2023 History of Present illness Narrative Subjective [...] a left MIDDLETON. documented in this encounter [facility] 02-19-2023 Hospital Discharge instructions Patient Education 02/19/2023 13:06:29 Post Op Patient Instructions - FT (CUSTOM) Follow Up Care 02/17/2023 09:28:50 With:Portillo Ludwig Address:Unknown When: Unknown Comments:As needed [facility] 02-18-2023 Note [id number] [facility] 01-25-2023 History of Present illness Narrative Patient [...] now. Notified provider. documented in this encounter [facility] 12-16-2021 Note CARDIAC STRESS TEST Requesting Physician: [...] and relayed in a separate dictation. [facility] 07-10-2021 History of Present illness Narrative [...] following this hospitalization. Patient resides outside of [place] near [place] with his . 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 Patient uses no DME and has no [...] planning concerns or needs at this point. CHILD CARE SPECIALIST to remain involved and assist with any/all [...] orders and plan as documented above with Abdiel Neff MD. SABI Menchaca CNP 3:17 PM [...] loss Fluid Accumulation: No significant fluid accumulation Nail Technician Strength: Not Performed Estimated Daily Nutrient Needs: Energy (kcal): 7227-7634 (25-30); Weight Used for Energy Requirements: Current [...] 140 lb (63.5 kg) (couple weeks ago) [place] Body Weight: 142 lbs; % [place] Body Weight 95.1 % BMI: 21.8 Adjusted [...] No discharge needs at this time Contact: [id number] Patient complaining of pain. Encouraged patient to [...] pumps at this time. Pt arrived to [facility] 330 via wheelchair from post op recovery. Pt alert and oriented x4. Pt was able to ambulate from wheelchair to recliner in room. Pt rates 2/10 pain when sitting in one place. Pt arrived on room air with no IV access. Pt denies any needs at this time. Report given to Gama HADLEY. Pt transferred to room on [facility] vis wheelchair. Discharge Criteria Inpatients must meet [...] adequate pain relief. Dr Neff called by NETWORK DESIGN ARCHITECT and updated. Pt being admitted overnight for [...] test on 07/05/2021 documented in this encounter [facility] Phone: 07-10-2021 Hospital course Narrative DISCHARGE SUMMARY [...] 3:32 PM 07/10/2021 documented in this encounter [facility] Phone: 07-09-2021 Hospital Discharge instructions Dolly Lopez, SABI Flores CNP - 07/09/2021 You may experience waves [...] as directed as needed. Call our office [phone] or go to ER (if after normal office hours) if you develop fever, intractable vomiting, severe/intolerable pain. The following attachments cannot be sent through Care Everywhere.Kidney Stone Prevention Diet: General Info (Jamaican)documented in this encounter [facility] Phone: 06-23-2021 Note PROCEDURE: XR CHEST 1 [...] by: LENIN JAY Date: 2021-06-22 22:30 [facility] Evaluation + Plan note No data available for this section [facility] [place] Evaluation + Plan note Future Appointments Appointment Date:09/23/2023 02:40:00 PM Scheduled Provider:Aaron KELSEY MD Location:[facility] Appointment Type: Post Op 15 Av[facility] [place] Evaluation note Diagnosis Preop testing Preoperative examination, unspecified documented in this encounter [facility] Phone: evalxdrrgx note* Diagnosis Ureteral calculus- Primary Calculus of ureter Renal calculus Calculus of kidney documented in this encounter [facility] Phone: evaljfpxps note* Diagnosis Left lower quadrant abdominal pain- Primary Urinary tract infection with hematuria, site unspecified Ureteral calculus Calculus of ureter documented in this encounter [facility] Phone: evalorvjqr note* Diagnosis Ureteral stone Calculus of ureter Nausea Nausea alone Decreased appetite Anorexia documented in this encounter [facility] Phone: evalmejtiv note* Diagnosis Renal colic LLQ pain Abdominal pain, left lower quadrant Incomplete bladder emptying documented in this encounter [facility] Phone: [email or web address] note* Diagnosis Renal colic LLQ pain Abdominal pain, left lower quadrant Incomplete bladder emptying documented in this encounter [facility] Phone: evaluation note* Diagnosis Renal colic LLQ pain Abdominal pain, left lower quadrant Incomplete bladder emptying documented in this encounter [facility] Phone: [email or web address] note* Diagnosis Ureteral stone Calculus of ureter documented in this encounter [facility] Phone: [email or web address] note* Diagnosis Intermittent chest pain- Primary Chest pain, unspecified History of epistaxis Personal history of other diseases of respiratory system documented in this encounter [facility] [employer] [facility] Diagnosis Asymmetric SNHL (sensorineural hearing loss)- Primary Sensorineural hearing loss, asymmetrical Left-sided tinnitus Unspecified tinnitus documented in this encounter [facility] HealthcareEvaluation noteNo assessment information availableMer[facility] Work Phone: Evaluation note* Diagnosis Sensorineural hearing loss (SNHL) of left ear with restricted hearing of right ear- Primary documented in this encounter [facility] HealthcareEvaluation note* Diagnosis Screening PSA (prostate specific antigen) Special screening for malignant neoplasm of prostate [facility] Diagnosis Renal stone Calculus of kidney [facility] Instructions* David Robbins DO - [...] sent through Care Everywhere. * Lithotripsy: Post-op (Jamaican) * UTI (Urinary Tract Infection): Male (Jamaican) [facility] Work [facility]: Hospital Discharge instructions No data available for this section General Surgery [place] Progress note No data available for this section General Surgery Nevin Reason for visit Narrative* Auth/Cert Specialty Diagnoses / Procedures Referred By Miguel Angel t Referred To Contact Diagnoses Left ureteral calculus LEFT URETERAL CALCULUS, BLADDER WALL THICKENING Procedures SC CYSTO/URETERO W/LITHOTRIPSY &INDWELL STENT INSRT SC CYSTO/URETERO W/LITHOTRIPSY &INDWELL STENT INSRT CYSTOSCOPY URETEROSCOPY LASER- HLL CYSTOSCOPY URETERAL STENT INSERTION- POSS BLADDER BX Abdiel Neff MD [address], [address] [place] [address] [facility] [id number] [place] [address] Referral ID Status Reason Start Date Expiration Date Visits Re quested Visits Authorized [id number] 1 1 [facility] Work Phone: Summary Purpose Family History No Family [...] Maker Jesusita Myerholtz Child Secondary Decision Maker Latest Code Status on File Code Status Date Activated Date Inactivated Comments Full Code 07/09/2021 7:39 PM 07/10/2021 6:34 PM Full Code 07/09/2021 2:57 PM 07/09/2021 7:38 PM Healthcare Agents on File Name Relationship Healthcare Agent Relationshi p Communication Christiane Freeze Spouse Primary Decision Maker Jesusita Myerholtz Child Secondary Decision Maker Healthcare Agents on File Name Relationship Healthcare Agent Relationshi p Communication Christiane Freeze Spouse Primary Decision Maker Jesusitazhang Walkerholsharon Child Secondary Decision Maker Healthcare Agents on File Name Relationship Healthcare Agent Relationshi p Communication Christiane Freeze Spouse Primary Decision Maker Jesusita Myerholsharon Child Secondary Decision Maker Healthcare Agents on File Name Relationship Healthcare Agent Relationshi p Communication Christiane Freeze Spouse Primary Decision Maker Jesusita Myerholtz Child Secondary Decision Maker Latest Code Status [...] Relationship Healthcare Agent Relationshi p Communication Christiane Ja Spouse Primary Decision Maker Jesusita Kilgore Child Secondary Decision Maker Latest Code Status on File Code Status Date Activated Date Inactivated Comments Full Code 07/09/2021 7:39 PM 07/10/2021 6:34 PM Code Status History Code Status Date Activated Date Inactivated Comments Full Code 07/09/2021 2:57 PM 07/09/2021 7:38 PM Healthcare Agents on File Name Relationship Healthcare Agent Relationshi p Communication Christiane Ja Spouse Primary Decision Maker Jesusita Kilgore Child Secondary Decision Maker Advance Directive Response Recorded Date/ Time Advance Directives No September 02, 024 1:03pm Date Activated Date Inactivated Comments 07/09/2021 7:39 PM 07/10/2021 6:34 PM Date Activated Date Inactivated Comments 07/09/2021 2:57 PM 07/09/2021 7:38 PM Healthcare Agents on File Name Relationship Healthcare Agent Relationshi p Communication Christiane Ja Spouse Primary Decision Maker Jesusita Kilgore Child Secondary Decision Maker Reason for Referral Specialty Diagnoses / Procedures Referred By Contac t Referred To Contact Radiology Diagnoses Renal colic LLQ pain Incomplete bladder emptying Procedures CT ABDOMEN PELVIS WO CONTRAST Additional Contrast? None Dolly Lopez, OPERATIONS ENGINEER - PAINTING TECHNICIAN [address] [place] [address] Referral ID Status Reason Start Date Expiration Date Visits Re quested Visits Authorized [id number] Closed 07/16/2021 01/12/2022 1 1 Additional Source Comments (unrecognized sect ion and content) No Status Records FoundNo Status Records FoundNo Status Records FoundNo Status Records FoundNo Status Records FoundNo Status Records FoundNo Status Records Found INFORMATION SOURCE (unrecogn ized section and content) DATE CREATED AUTHOR 11/20/2017 [facility] DATE CREATED AUTHOR AUTHOR'S ORGANIZ ATION 12/21/2021 [facility] DATE CREATED AUTHOR AUTHOR'S ORGANIZ ATION 09/07/2023 [facility] DATE CREATED AUTHOR AUTHOR'S ORGANIZ ATION 09/25/2023 [facility] DATE CREATED AUTHOR AUTHOR'S ORGANIZ ATION 04/01/2024 [facility] EPIC DATE CREATED AUTHOR AUTHOR'S ORGANIZ ATION 09/01/2024 [facility] DATE CREATED AUTHOR AUTHOR'S ORGANIZ ATION 12/20/2024 [facility] Care Teams (unrecognized sec tion and content) Cartography Technician Relationship Specialty Start Date End Date Dylan Zaidi MD [address] [place] [address] PCP - General Family Medicine 07/05/21 Cartography Technician Relationship Specialty Start Date End Date Dylan Zaidi MD [address] [place] [id number] PCP - General Family Medicine 07/05/21 Cartography Technician Relationship Specialty Start Date End Date Dylan Zaidi MD [address] [place] [id number] PCP - General Family Medicine 07/05/21 Cartography Technician Relationship Specialty Start Date End Date yDlan Zaidi MD [address] [place] [id number] PCP - General Family Medicine 07/05/21 Cartography Technician Relationship Specialty Start Date End Date Dylan Zaidi MD [address] [place] [id number] PCP - General Family Medicine 07/05/21 Cartography Technician Relationship Specialty Start Date End Date Dylan Zaidi MD [address] [facility] [place] [address] PCP - General Family Medicine 07/05/21 Cartography Technician Relationship Specialty Start Date End Date Dylan Zaidi MD [address] [facility] [place] [address] PCP - General Family Medicine 07/05/21 Cartography Technician Relationship Specialty Start Date End Date Dylan Zaidi MD [address] [facility] [place] [address] PCP - General Family Medicine 07/05/21 Cartography Technician Relationship Specialty Start Date End Date Dylan Zaidi MD [address] [facility] [place] [address] PCP - General Family Medicine 07/05/21 Cartography Technician Relationship Specialty Start Date End Date Dylan Zaidi MD [address] [place] [address] PCP - General Family Medicine 07/05/21 Cartography Technician Relationship Specialty Start Date End Date Dylan Zaidi MD [address] [place] [facility] [address] PCP - General Family Medicine 01/28/23 Team Status: Inactive Member Role Status Dates Aaron Kelsey MD FACS Attending Provider Active Start: September 02, 2023 End: September 02, 2023 Cartography Technician Relationship Specialty Start Date End Date Dylan Zaidi MD [address] [place] [facility] [address] PCP - General Family Medicine 01/28/23 Cartography Technician Relationship Specialty Start Date End Date Dylan Zaidi MD [address] [place] [facility] [address] PCP - General Family Medicine 01/28/23 Cartography Technician Relationship Specialty Start Date End Date Dylan Zaidi MD [address] [place] [address] PCP - General Family Medicine 07/05/21 Scheduled Active and Recently Administ ered Medications [...] Patient/family refused) 0838 (Given - Provider: Kami Moses RN) ciprofloxacin (CIPRO) IVPB 400 mg (COMPLETED) 400 mg, IntraVENous, STARCHMAKER TO O.R., 1 dose, On Thu07/09/21 at 1515, Administer within 1 hour prior to incision, Pre-op (day of surgery) 1458 (New Bag - Provider: Kalina Dc RN)1558 (Stopped - Provider: Kami Moses RN) clonazePAM (KLONOPIN) tablet 0.25 mg 0.25 mg, Oral, 3 TIMES DAILY, First dose on Thu07/09/21 at 2099 2055 (Given - Provider: Gama Bell RN) [...] not administer for more than 5 days. 175 (Given - Provider: Janis Najera RN) lisinopril [...] by Other - Provider: Gama Bell RN) 08 (Given - Provider: Kami Moses, JOMAR)2099 (Due) tamsulosin (FLOMAX) capsule 0.4 mg 0.4 [...] (NoRateChange - Provider: Sandie Rai APRN - VIGOUREUX PRINTER)1821 (Stopped - Provider: Janis Najera RN) PRN [...] at 1530, Intra-op 1530 (Given - Provider: Abdiel Neff MD - Comment: urethra) morphine (PF) [...] WO CONTRAST Additional Contrast? None Dolly Lopez, OPERATIONS ENGINEER - PAINTING TECHNICIAN [address] [place] [address] Referral ID Status Reason Start Date Expiration Date Visits Re quested Visits Authorized [id number] Closed 07/16/2021 01/12/2022 1 1 Reason Comments [...] BE BASED ON THE PRIMARY CLINICAL RECORDS. [employer] provides no warranty or guarantee of the accuracy or completeness of information in this document.
[2024-12-30 10:01] LABS: Hematocrit 43.1 % (42.0-54.0); Hemoglobin 15.1 g/dL (14.0-18.0); Immature Granulocytes Abs Auto 0.03 10^3/uL (0.00-0.03); Immature Granulocytes Pct Auto 0.3 % (0.0-0.5); Lymphocytes Absolute Auto 2.0 10^3/uL (1.2-3.8); Mean Corpuscular HGB Conc 35.0 g/dL (29.9-35.2); Mean Corpuscular Hemoglobin 29.5 pg (25.9-34.0); Mean Corpuscular Volume 84.2 fL (80.0-94.0); Platelet Count 240 10^3/uL (150-450); Red Blood Count 5.12 10^6/uL (4.70-6.10); White Blood Count 10.5 10^3/uL (4.0-11.0)
[2024-12-30 10:16] LABS: Alanine Aminotransferase 30 U/L (16-63); Albumin Globulin Ratio 0.9; Albumin Level 3.7 g/dL (3.4-5.0); Alkaline Phosphatase 84 U/L (46-116); Anion Gap 14.3; Aspartate Amino Transferase 16 U/L (15-37); Blood Urea Nitrogen 12.0 mg/dL (7.0-18.0); Calcium 9.1 mg/dL (8.5-10.1); Carbon Dioxide 25.1 mmol/L (21.0-32.0); Chloride 109 mmol/L (98-107); Cholesterol 117 mg/dL (<=200); Estimated GFR (African America >60 (>=60 mL/min/1.73m^2); Estimated GFR (Non-African Ame >60 (>=60 mL/min/1.73m^2); Globulin 3.9 g/dL; Glucose 101 mg/dL (74-106); HDL Cholesterol 48 mg/dL (40-60); Potassium 3.4 mmol/L (3.5-5.1); Sodium 145 mmol/L (136-145); Total Protein 7.6 g/dL (6.4-8.2); Triglycerides 120 mg/dL (<=150); VLDL CHOLESTEROL 24.0 mg/dL
--- NOTE | 2024-12-30 11:50 | PC.NURSE ---
Nursing Note Cardiac Stress Test Reviewed: Medication, allergies and patient history reviewed. Stress Test: [x ] Patient tolerated stress test well. [ ] Patient unable to tolerate walking on treadmill. Switched to Lexiscan stress test. [x ] No chest pain noted per patient [ ] Chest pain that resolved prior to leaving stress lab. [ ] No dyspnea noted. [x ] Dyspnea that resolved prior to leaving stress lab. [x ] Patient left stress lab asymptomatic and hemodynamically stable. [ ] Patient taken to the Emergency Room due to non-resolving symptoms following stress test. [ ] Patient achieved target heart rate. [ ] Patient unable to achieve target heart rate. [ ] Aminophylline administered as reversal agent to Lexiscan (Regadenoson). [ ] Nitro administered. Nursing Comments:Pt had Lexiscan test done. Pt had some SOB after Becky that resolved within 3 minutes after it was given. NO chest pain noted. Pt ambulated to cafeteria for breakfast prior to second set of images.
[2024-12-30] MEDS: REGADENOSON 0.4 MG/5 ML SYRINGE IV (12:00)
--- NOTE | 2025-01-02 10:36 | PM.STRESS ---
Stress Test Stress Test Allergies Allergy/AdvReac Type Severity Reaction Status Date / Time lisinopril Allergy Unknown angioedema Verified 09/02/23 08:34 Requesting physician: MICHELLE ASHRAF Procedure: Lexiscan pharmacological stress test General Information: Reason for Stress Test: [Chest pain, SOB] Cardiac History and Risk Factors: [CAD, CABG, MO, HTN, stents] Resting 12 - Lead Electrocardiogram: Normal sinus rhythm Normal ECG Stress Test: Protocol: [Lexiscan] Exercise Capacity: [N/A] Blood Pressure Response: [N/A] Rhythm: [Sinus] ST - Response: [No significant ST changes] Patient Response: [No chest pain] Interpretation: 1. No ischemic EKG changes 2. Nuclear images are to be read, interpreted and reported seperately
== END 2024-12-30 09:25 | disposition home or self-care (01) ==
PROVIDERS: PCP Nurse Practitioner Family; Visit Provider Internal Medicine Interventional Cardiology
DX: E78.2 Mixed hyperlipidemia (principal); I10 Essential (primary) hypertension; I25.118 Atherosclerotic heart disease of native coronary artery with other forms of angina pectoris
CPT/HCPCS: 36415; 78452; 80053; 80061; 85025; 93017; A9500; J2785

== ENCOUNTER 2025-01-13 10:49 | Outpatient (OUT) | payer MEDICARE, SELFPAY ==
--- OUTSIDE RECORDS SUMMARY | 2024-06-10 05:17 | XMS_ITS ---
Author Organization The [facility] in [place] Address [address] [place] [address] Care Team Providers Care Emissions Inspector Name Role Phone Renée Ramos Primary Care Provider [phone] Results Component Value Reference Range Notes XR chest 2V Reviewed date:06/20/2024 08:27:42 AM Interpretation: Performing Lab: Notes/Report: Source Facility: [place] [address] XRay Report Signed Patient: JACK HAYWARD MR#: [id number] : 1955 Acct:[id number] Age/Sex: 69 / M ADM Date: 06/11/24 Loc: RAD Attending Dr: RENÉE RAMOS Ordering Physician: RENÉE RAMOS Date of Service: 06/11/24 Procedure(s): XR chest 2V Accession Number(s): [id number] cc: RENÉE RAMOS [place] [address] Patient Name: JACK HAYWARD MRN: [id number] date: 1955 Sex: M Assigned Patient Location: RAD Current Patient Location: RAD Accession/Order Number: [id number] Exam Date: 06/11/2024 11:20 Report Date: 06/11/2024 17:02 At the request of: RENÉE RAMOS Procedure: XR chest 2V EXAM: XR chest 2V HISTORY: J40 Bronchitis COMPARISON: 08/19/2023 TECHNIQUE: Upright PA and lateral chest x-ray FINDINGS: The heart is not enlarged and the vasculature is not distended. No acute infiltrate, effusion or pneumothorax is identified. The osseous structures are grossly intact. XR/XR chest 2V IMPRESSION: No acute infiltrate or evidence of cardiac decompensation. The overall appearance of the chest is essentially unchanged. Electronically authenticated by: DENIS DSOUZA Date: 06/11/2024 17:02 Dictated By: Denis Dsouza M.D. Signed By: 06/11/241703 DD/ 01 TD/TT: Health Care Law Specialist: [place] [address] XRay Report Signed Patient: JACK HAYWARD MR#: [id number] : 1955 Acct:[id number] Age/Sex: 69 / M ADM Date: 06/11/24 Loc: RAD Attending Dr: RENÉE RAMOS Ordering Physician: RENÉE RAMOS Date of Service: 06/11/24 Procedure(s): XR chest 2V Accession Number(s): [id number] cc: RENÉE RAMOS [place] [id number] Patient Name: JACK HAYWARD MRN: [id number] date: 1955 Sex: M Assigned Patient Location: [facility] Current Patient Location: [facility] Accession/Order Numb er: [id number] Exam Date: 06/11/2024 11:20 Report Date: 06/11/2024 17:02 At the request of: RENÉE RAMOS Procedure: XR chest 2V EXAM: XR chest 2V HISTORY: J40 Bronchitis COMPARISON: 08/19/2023 TECHNIQUE: Upright P A and lateral chest x-ray FINDINGS: The heart is not enlarged and the vasculature is not distended. No acute infiltrate, ef fusion or pneumothorax is identified. The osseous structures are grossly intact. X R/XR chest 2V IMPRESSION: No acute infiltrate or evidence of cardiac decompensation. The overall appearance of the ch est is essentially unchanged. Electronically authe nticated by: DENIS DSOUZA Date: 06/11/2024 17:02 Dictated By: Denis Dsouza M.D. Signed By: 06/11/241703 DD/ 01 TD/TT: Health Care Law Specialist: REASON FOR VISIT update Medications Medication SIG (Take, Route, Frequency, Duration) Notes Start Date End Date Status Cipro 500 MG 1 tablet Orally ever y 12 hrs for 10 days 06/10/2024 Active Encounters Encounter Location Date Provider Diagnosis [facility] [address] [place] [address] 06/10/2024 Renée Ramos Bronchitis J40 Assessments Encounter Date Diagnosis (ICD Code) Assessment Notes Treatment Notes Treatment Clinical Notes Section Notes 06/10/2024 Bronchitis (ICD-10 - J40) Plan Of Treatment Medication Medication Name Sig Start Date Stop Date Notes Azithromycin 250 MG as directed Orally daily 06/07/2024 take two tablets po on first day than one tablet po days 2-5 Cipro 500 MG 1 tablet Orally ever y 12 hrs for 10 days 06/10/2024 Next Appt Details Provider Name:Renée lin, 02/14/2025 11:00:00 AM, [address] [place], [address], Progress Notes * Jack HAYWARD ADOB:1955 (69 yo M)Acc No.[id number]:06/10/2024 Patient: Jack OSHEA :1955 A ge:69 Y S ex:Male Address:[address] [place] [address] [place] [phone] * Refills Stop Azithromycin Tablet, 250 MG, Orally, as directed, daily Start Cipro Tablet, 500 MG, Orally, 20 Tablet, 1 tablet, every 12 hrs, 10 days, Refills=0 Subjective: * Chief Complaints: * U pdate * Medical History: * Surgical History: * Hospitalization/Major Diagno stic Procedure: * Medications: Objective: * Vitals: * Physical Examination: Assessment: * Assessment: 1. B ronchitis - J40 Plan: * Treatment: 2. O thers Start Cipro Tablet, 500 MG, 1 tablet, Orally, every 12 hrs, 10 days, 20 Tablet, Refills 0. ? * Procedure Codes: * true * Date: Generated for Justin melara/Modesta/Bushra on: 0 01/13/2025 11:04 AM EDT
--- OUTSIDE RECORDS SUMMARY | 2024-06-20 04:26 | XMS_ITS ---
Author Organization The [facility] in [place] Address [address] [place] [address] Care Team Providers Care Crossing Supervisor Name Role Phone Richard Renée Primary Care Provider REASON FOR VISIT Chest X-Ray Results Encounters Encounter Location Date Provider Diagnosis [facility] [address] [place] [address] 06/20/2024 Renée Ramos Plan Of Treatment Next Appt Details Provider Name:Renée lin, 02/14/2025 11:00:00 AM, [address] [place], [address], Progress Notes * YESYJack ADOB:1955 (69 yo M)Acc No.[id number]:06/20/2024 Patient: Aly AVILA Jack Johnson :1955 A ge:69 Y S ex:Male Address:[address], [place] [address] * true * Date: Generated for Evangelisti saritha/Famelindag/eTransmitting on: 01/13/2025 11:04 AM EDT
--- OUTSIDE RECORDS SUMMARY | 2024-07-15 05:06 | XMS_ITS ---
Author Organization The [facility] in [place] Address [address] [place] [address] Care Team Providers Care Integrity Engineer Name Role Phone Richard, Renée Primary Care Provider [phone] REASON FOR VISIT cough Medications Medication SIG (Take, Route, Frequency, Duration) Notes Start Date End Date Status Trelegy Ellipta 100-62.5-25 MCG/ACT 1 puff Inhalation Once a day 07/15/2024 Active Encounters Encounter Location Date Provider Diagnosis [facility] [address] [place] [address] 07/15/2024 Renée Ramos Plan Of Treatment Medication Medication Name Sig Start Date Stop Date Notes Trelegy Ellipta 100-62.5-25 MCG/ACT 1 puff Inhalation Once a day 07/15/2024 Next Appt Details Provider Name:Renée lin, 02/14/2025 11:00:00 AM, [address] [place], [address], Progress Notes * YESYJack ADOB:1955 (69 yo M)Acc No.[id number]:07/15/2024 Patient: Jcak OSHEA :1955 A ge:69 Y S ex:Male Address:[address] [place] [address] * Refills Start Trelegy Ellipta Aerosol Powder Breath Activated, 100-62.5-25 MCG/ACT, Inhalation, 1 Each, 1 puff, Once a day, Refills=11 * true * Date: Generated for Justin melara/Modesta/Cherylitting on: 0 01/13/2025 11:04 AM EDT
--- OUTSIDE RECORDS SUMMARY | 2025-01-05 05:42 | XMS_ITS ---
Author Organization [facility] in [place] Address [address] [place] [address] Care Team Providers Care Nuclear Fuel Processing Technician Name Role Phone Richard Renée Primary Care Provider [phone] REASON FOR VISIT refill Medications Medication SIG (Take, Route, Fr equency, Duration) Notes Start Date End Date Status Doxepin HCl 10 MG 1 Orally tid = prn a nxiety for 30 days 01/26/2023 Active Encounters Encounter Location Date Provider Diagnosis [facility] [address] [place] [address] 01/05/2025 Renée Ramos Plan Of Treatment Medication Medication Name Sig Start Date Stop Date Notes Doxepin HCl 10 MG 1 Orally tid = prn anxiety for 30 days 0 01/26/2023 Next Appt Details Provider Name:Renée lin, 02/14/2025 11:00:00 AM, [address] [place], [address], Progress Notes * YESYJack ADOB:1955 (69 yo M)Acc No.[id number]:01/05/2025 Patient: Jack OSHEA :1955 A ge:69 Y S ex:Male Address:[address], [place] [address] * Refills Refill Doxepin HCl Capsule, 10 MG, Orally, 20, 1, tid = prn anxiety, 30 days, Refills=11 * true * Date: Generated for Justin melara/Modesta/Cherylitting on: 0 01/13/2025 11:04 AM EDT
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
--- OUTSIDE RECORDS SUMMARY | 2025-01-13 11:04 | XMS_ITS | Encounter Summary ---
Author Organization [employer] [facility] Address [id number] [address] [place] [address] Care Team Providers Care Mushroom Farmer Name Role Phone Unavailable Primary Care Provider Unavailabl e Encounter Details Date Type Department Care Team (Late st Contact Info) Description 02/28/2022 Telephone [facility] [address] [place] [address] Jose Chaves MD PhD [address] [address] RETIRED 12/09/2023 [place] [address] Social History Tobacco Use Types Packs/Day Years Used Date Smoking Tobacco: Every Day Cigarettes Smokeless Tobacco: Never Alcohol Use Standard Drinks/Week Comments Not Currently 0 (1 standard drink = 0.6 oz pur e alcohol) Childcare Answer Date Recorded Childcare Unknown 10/20/2018 Employment Answer Date Recorded Employment Unknown 10/20/2018 Purpose - Life Answer Date Recorded Purpose and direction in life Unknown Sex and Gender Information Value Date Recorded Sex Assigned at Not on file Legal Sex Male 11:54 AM EDT Gender Identity Not on file Sexual Orientation Not on file documented as of this encounter Plan of Treatment Not on file documented as of this encounter Visit Diagnoses Not on filedocumented in this encounter
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
--- OUTSIDE RECORDS SUMMARY | 2025-01-13 11:04 | XMS_ITS | Encounter Summary ---
Author Organization [facility] Address [address] [place] [address] Care Team Providers Care Garde Manger Name Role Phone Casa Carreno MD Primary Care Provider [phone] Encounter Details Date Type Department Care Team (Late st Contact Info) Description 02/10/2023 Abstract [facility] [address] [facility] [address] [place] [address] Sherly Daniel, JOMAR [address] [facility] [address] [place] [address] Social History Tobacco Use Types Packs/Day Years Used Date Smoking Tobacco: Every Day Cigarettes 1 55.7 Started: 1971 Smokeless Tobacco: Never Tobacco Cessation:Ready to Q uit: Not Asked; Counseling Given: Not Answered Alcohol Use Standard Drinks/Week Comments Yes 20 (1 standard drink = 0.6 oz pu re alcohol) Sex and Gender Information Value Date Recorded Sex Assigned at Not on file Legal Sex Male 10:38 AM EDT Gender Identity Not on file Sexual Orientation Not on file documented as of this encounter Plan of Treatment Not on file documented as of this encounter Visit Diagnoses Not on filedocumented in this encounter Care Teams Garde Manger Relationship Specialty Start Date End Date Casa Carreno MD PCP - General Family Medicine 01/28/23 documented as of this encounter
--- OUTSIDE RECORDS SUMMARY | 2025-01-13 11:04 | XMS_ITS | Clinical Summary ---
Author Organization [facility] Address [address] [place] [address] Care Team Providers Care Sheeter Waxer Operator Name Role Phone Casa Carreno MD Primary Care Provider [phone] Allergies Active Allergy Reactions Criticality Noted Date Comments Lisinopril Angioedema 12/12/2022 Medications buPROPion SR (Wellbutrin SR) 150 mg 12 hr tabletIndications:Co ronary arteriosclerosis,Tob acco user Take 1 tablet (150 mg) by mouth in the morning and at bedtime. Do not crush, chew, or split. 60 tablet 1 06/13/19 23 Active Additional Information Patient not taking.Reported on 12/19/2024 tamsulosin (Flomax) 0.4 mg 24 hr capsule Take 0.4 mg by mouth in the morning. 11/26/19 23 Active nitroglycerin (Nitrostat) 0.4 mg SL tabletIndications:Co ronary arteriosclerosis Place 1 tablet (0.4 mg) under the tongue every 5 (five) minutes if needed for chest pain. 25 tablet 3 12/13/19 23 Active doxepin (SINEquan) 10 mg capsule TAKE 1 CAPSULE BY MOUTH THREE TIMES DAILY NEEDED FOR ANXIETY for 30 days 01/27/20 23 Active metoprolol succinate XL (Toprol-XL) 25 mg 24 hr tabletIndications:Co ronary artery disease involving [place] heart, unspecified vessel or lesion type, unspecified whether angina present Take 0.5 tablets (12.5 mg) by mouth in the morning. Do not crush or chew. 45 tablet 3 02/11/20 23 Active Additional Information Patient not taking.Reported on 12/19/2024 aspirin 81 mg EC tabletIndications:Co ronary artery disease involving [place] heart, unspecified vessel or lesion type, unspecified whether angina present Take 1 tablet (81 mg) by mouth once daily as directed. 90 tablet 3 12/16/19 24 Active rosuvastatin (Crestor) 40 mg tabletIndications:Co ronary artery disease involving [place] heart, unspecified vessel or lesion type, unspecified whether angina present TAKE 1 TABLET BY MOUTH ONCE DAILY AT BEDTIME 90 tablet 3 02/03/20 24 Active clopidogrel (Plavix) 75 mg tabletIndications:Co ronary artery disease involving [place] heart, unspecified vessel or lesion type, unspecified whether angina present TAKE 1 TABLET BY MOUTH ONCE DAILY DIRECTED 90 tablet 3 02/17/20 24 Active metoprolol succinate XL (Toprol-XL) 25 mg 24 hr tabletIndications:Pa lpitations Take 1 tablet (25 mg) by mouth once daily as directed. Do not crush or chew. 90 tablet 3 07/15/19 25 026 Active isosorbide mononitrate ER (Imdur) 30 mg 24 hr tabletIndications:Co ronary arteriosclerosis,Sta ble angina pectoris Take 1 tablet (30 mg) by mouth once daily as directed. Do not crush or chew. 90 tablet 3 08/18/19 25 026 Active amLODIPine (Norvasc) 5 mg tabletIndications:Un controlled hypertension TAKE 1 TABLET BY MOUTH DAILY 90 tablet 3 11/29/19 25 Active Trelegy Ellipta 100-62.5-25 mcg blister with device Inhale 1 puff if needed. 07/16/19 25 Active albuterol 90 mcg/actuation inhaler Inhale 1 puff every 4 (four) hours if needed. 06/07/19 25 Active psyllium (Metamucil) powder Take 1 Dose by mouth three times daily. Active Active Problems Problem Noted Date Diagnosed Date DNS (deviated nasal septum) 02/11/202306/12 Hypertension 01/30/2023 01/30/2023 Alcohol abuse 12/12/2022 12/12/2022 Anticoagulated 12/12/2022 12/12/2022 Antiplatelet or antithrombotic long-term use 08/202212/12/2022 Anxiety 12/12/2022 12/12/2022 Body mass index (BMI) of 20 to 24 12/12/2022 12/12/2022 Kidney stone 12/12/2022 12/12/2022 History of myocardial infarction 12/12/2022 12/12/2022 History of renal calculi 12/12/2022 023 Hydronephrosis 12/12/2022 12/12/2022 Hyperglycemia 12/12/2022 12/12/2022 Hyperlipidemia 12/12/2022 12/12/2022 Inguinal hernia 12/12/2022 12/12/2022 Porokeratosis 12/12/2022 12/12/2022 Angioedema 12/12/2022 Assessment & Plan (12/12/2022 11:54 AM EDT): ED stopped lisinopril r/t angioedema, pt states difficulty swallowing is improved- but states occasionally it feels like something catches. D/W pt to f/U with PCP for symptoms and he may benefit from a GI consult or Swallow study. Benign essential HTN 06/13/2022 Assessment & Plan (06/13/2022 12:50 PM EST): Hypertension is stable Continue lisinopril, toprol and imdur Mixed dyslipidemia 06/13/2022 Assessment & Plan (06/13/2022 12:48 PM EST): Continue crestor Dyspnea on exertion 12/06/2021 12/12/2022 BPH with obstruction/lower urinary tract symptom s 07/29/2021 12/12/2022 Epistaxis 07/25/2021 12/12/2022 Calculus of kidney 07/09/2021 12/12/2022 Ureteral calculus 07/09/2021 12/12/2022 Pulmonary emphysema 12/21/2020 Acid reflux 09/28/2018 Chest pain 09/28/2018 Assessment & Plan (12/12/2022 11:59 AM EDT): stable Assessment & Plan (06/13/2022 12:51 PM EST): Will start imdur for angina- d/w pt to monitor b/p and discussed side effects of headache and if does not resolve in 1-2 weeks to stop imdur and call office Coronary arteriosclerosis 09/28/2018 Assessment & Plan (12/12/2022 11:55 AM EDT): Coronary artery disease is stable Continue GDMT- ASA, plavix, toprol, crestor continue risk factor modifications- heart healthy diet, regular exercise as tolerated and continue all medications. Assessment & Plan (06/13/2022 12:53 PM EST): Coronary artery disease is stable Continue GDMT- ASA, plavix, toprol, crestor, and start imdur continue risk factor modifications- heart healthy diet, regular exercise as tolerated and continue all medications. Tobacco user 09/28/2018 Assessment & Plan (06/13/2022 12:47 PM EST): 10 min smoking cessation discussion and pt is willing to try wellbutrin to help him quit smoking. Discussed side effects and when to call office Myocardial infarction 11/17/2017 Encounters Date Type Department Care Team Description 01/03/[address] [place] [address] Aaliyah Villanueva MA 01/02/2025 Orders Only [address] [address] ProviderEve MD 12/19/2024 1:30 PM EDT Office Visit [address] [address] Lupillo Pulliam MD Coronary artery disease involving [place] coronary artery of [place] heart with other form of angina pectoris (Primary Dx); Primary hypertension; Mixed hyperlipidemia; Shortness of breath 11/27/[address] [address] Mackenzie Arroyo MD Uncontrolled hypertension (Primary Dx) from Last 3 Months Family History Medical History Relation Name Comments Heart attack Mother Relation Name Status Comments Mother Social History Tobacco Use Types Packs/Day Years Used Date Smoking Tobacco: Every Day Cigarettes Smokeless Tobacco: Never Tobacco Cessation:Ready to Q uit: Not Asked; Counseling Given: Not Answered Alcohol Use Standard Drinks/Week Comments Yes 30 [...] Heterosexual or Straight 10/2024 9:08 AM EDT Last Filed Vital Signs Vital Sign Reading Time Taken Comments Blood Pressure 101/63 12/19/2024 1:39 PM EDT Pulse 79 12/19/2024 1:39 PM EDT Temperature - - Respiratory Rate - - Oxygen Saturation 94% 12/19/2024 1:39 PM EDT Inhaled Oxygen Concentration - - Weight 66.7 kg (147 lb) 12/19/2024 1:39 PM EDT Height 167.6 cm (5' 6 ) 12/19/2024 1:39 PM EDT Body Mass Index 23.73 12/19/2024 1:39 PM EDT Plan of Treatment Upcoming Encounters Date Type Department Care Team (Late st Contact Info) Description 02/24/2025 2:15 PM EDT Office Visit [facility] [address] [place] [address] Lupillo Pulliam MD [address] [facility] [place] [address] Health Maintenance Due Date Last Done Comments CT Colonography 1955 Colonoscopy 1955 Colorectal Cancer Screening 1955 FIT-DNA 1955 FIT 1955 FOBT 1955 Medicare Annual Wellness (AWV) 1955 Sigmoidoscopy 1955 Depression Screening 1966 Pneumococcal Vaccine: 50+ Ye ars (1 of 2 - PCV) 1973 Zoster Vaccines (1 of 2) 02/06/2004 Fall Risk Screening 2019 COVID-19 Vaccine (1 - 2023-2 5 season) 2025 Influenza Vaccine (#1) 2025 03/14/2011 Adult Tetanus 10/13/2029 10/14/2019 HIB Vaccines Aged Out No longer eligi ble based on patient's age to complete this topic HPV Vaccines Aged Out No longer eligi ble based on patient's age to complete this topic IPV Vaccines Aged Out No longer eligi ble based on patient's age to complete this topic Meningococcal B Vaccine Aged Out No l onger eligible based on patient's age to complete this topic Meningococcal Vaccine Aged Out No doug valeriano eligible based on patient's age to complete this topic Rotavirus Vaccines Aged Out No longer eligible based on patient's age to complete this topic Procedures Procedure Name Priority Date/Time Associated Diagnosis Comments LEXISCAN STRESS MYOCARDIAL PERFUSION IMAGING Routine 12/30/2024 12:51 PM EDT from Last 3 Months Results * Lexiscan Stress Myocardial Perfusion Imaging (12/30/2024 12:51 PM EDT) Anatomical Region Laterality Modality Other [facility] Provider CV STRESS PROCEDURES Ernestina l Result from Last 3 Months Insurance AETNA MEDICARE ADVANTAGE Care Teams Sheeter Waxer Operator Relationship Specialty Start Date End Date Casa Carreno MD [address] [facility] [address] [address] PCP - General 06/13/22
--- OUTSIDE RECORDS SUMMARY | 2025-01-13 11:05 | XMS_ITS | Clinical Summary ---
Author Organization [facility] Address [address], [address] [place] [address] Care Team Providers Care Packing Room Worker Name Role Phone Casa Carreno MD Primary Care Provider [phone] Allergies Active Allergy Reactions Criticality Noted Date Comments Lisinopril Angioedema 12/12/2022 Medications aspirin 81 MG EC tablet Take 1 tablet by mouth daily Active rosuvastatin (CRESTOR) 40 MG tablet Take 1 tablet by mouth every evening Active nitroGLYCERIN (NITROSTAT) 0.[address] 0.4 mg under the tongue every 5 minutes as needed for Chest pain up to max of 3 total doses. If no relief after 1 dose, call 911. Active clopidogrel (PLAVIX) 75 MG tablet Take 1 tablet by mouth daily Active metoprolol succinate (TOPROL XL) 25 MG extended release tablet Take 1 tablet by mouth daily Active isosorbide mononitrate (IMDUR) 30 MG extended release tablet TAKE 1 TABLET BY MOUTH EVERY MORNING (do not crush or chew) 06/13/2022 Active buPROPion (WELLBUTRIN SR) 150 MG extended release tablet TAKE 1 TABLET BY MOUTH TWICE DAILY (IN THE MORNING & AT BEDTIME) do not crush, chew or split TABLET 06/13/2022 Active amLODIPine (NORVASC) 5 MG tablet Take 1 tablet by mouth daily Active psyllium (KONSYL) 28.3 % PACK Take 1 packet by mouth daily Active doxepin (SINEQUAN) 10 MG capsule Take 1 capsule by mouth nightly Active albuterol sulfate HFA (PROVENTIL;GEORGE VALERIE;PROAIR) 108 (90 Base) MCG/ACT inhaler 1 puff every 4 hours as needed 06/07/2024 Active tamsulosin (FLOMAX) 0.4 MG capsuleIndicatio ns:BPH with obstruction/lowe r urinary tract symptoms Take 1 capsule by mouth daily 90 capsule 3 09/12/2024 Active Active Problems Problem Noted Date Diagnosed Date BPH with obstruction/lower urinary tract symptom s 07/29/2021 Ureteral calculus 07/09/2021 Renal calculus 07/09/2021 Family History Medical History Relation Name Comments Cirrhosis Father Cerebral Aneurysm Mother Relation Name Status Comments Father Mother Social History Tobacco Use Types Packs/Day Years Used Date Smoking Tobacco: Every Day Cigarettes Smokeless Tobacco: Never Tobacco Cessation:Ready to Q uit: No; Counseling Given: Yes Alcohol Use Standard Drinks/Week Comments Yes 0 (1 standard drink = 0.6 oz pur e alcohol) Sex and Gender Information Value Date Recorded Sex Assigned at Not on file Legal Sex Male 9:43 PM EST Gender Identity Not on file Sexual Orientation Not on file Last Filed Vital Signs Vital Sign Reading Time Taken Comments Blood Pressure 118/62 09/12/2024 2:46 PM EDT Pulse 85 08/26/2023 10:15 AM EDT Temperature 36.4 C (97.5 F) 09/12/2024 2:46 PM EDT Respiratory Rate 16 01/25/2023 11:09 AM EDT Oxygen Saturation 96% 01/25/2023 11:09 AM EDT Inhaled Oxygen Concentration - - Weight 67.1 kg (148 lb) 09/12/2024 2:46 PM EDT Height 167.6 cm (5' 6 ) 09/12/2024 2:46 PM EDT Body Mass Index 23.89 09/12/2024 2:46 PM EDT Plan of Treatment Upcoming Encounters Date Type Department Care Team (Late st Contact Info) Description 09/13/2025 1:00 PM EDT Office Visit [facility] Part of [address] [place] [address] Kang Dean PA-C [address] [place] [address] [address] [place] [address] 1Y psa/ kub/ pvr Health Maintenance Due Date Last Done Comments Lipids 02/06/1964 Depression Screen 1966 Hepatitis C screen 02/06/1972 Pneumococcal 50+ years Vaccine (1 of 2 - PCV) 1973 Colonoscopy 1999 Colorectal Cancer Screen 1999 FIT/FOBT: Average risk 1999 Fecal-DNA (Cologuard): Average risk 1999 Sigmoidoscopy/CT colonography 1999 Shingles vaccine (1 of 2) 02/06/2004 Respiratory Syncytial Virus (RSV) or age 60 yrs+ (1 - Risk 60-74 years 1-dose series) 2014 DTaP/Tdap/Td vaccine (1 - Tdap) 10/15/2019 10/14/2019 Annual Wellness Visit (Medicare Advantage) 05/11/2024 Flu vaccine (#1) 12/09/2024 COVID-19 Vaccine ( - season) 2025 AAA screen Completed 07/29/2021, 12/2021, 07/11/2021, Additional history exists Prostate Specific Antigen (PSA) Screening or Monitoring Discontinued 08/29/2024, 08/24/2023, 08/22/2022 Hepatitis A vaccine Aged Out No longe r eligible based on patient's age to complete this topic Hepatitis B vaccine Aged Out No longe r eligible based on patient's age to complete this topic Hib vaccine Aged Out No longer eligi ble based on patient's age to complete this topic Meningococcal (ACWY) vaccine Aged Out No longer eligible based on patient's age to complete this topic Meningococcal B vaccine Aged Out No l onger eligible based on patient's age to complete this topic Polio vaccine Aged Out No longer elig ible based on patient's age to complete this topic Medical Devices Implanted Type Area [employer] Brm Developer Device Identifier Shelf Expiration Date Model / Serial / Lot Stent Uret 6 Frx26 Cm Firm Monofil[employer] - [id number] Implanted:Qty: 1 on 07/09/2021 by Abdiel Neff MD at [facility] Left: Ureter [employer] 01/18/2024 [id number] / / [id number] Procedures Procedure Name Priority Date/Time Associated Diagnosis Comments PSA SCREENING Routine 08/29/2024 11:39 AM EDT Screening PSA (prostate specific antigen) CT ABDOMEN PELVIS WO CONTRAST STAT 07/29/2021 11:27 AM EDT Renal colic LLQ pain Incomplete bladder emptying from Last 3 Months or Most Recently Relevant to Health Maintenance Results * PSA Screening (08/29/2024 11:39 AM EDT) PSA 1.80 0.00 - 4.00 ng/mL 08/29/2024 11:39 AM EDT [employer] Comment: The Hari ECLIA assay is used. Results obtained with different assay methods cannot be used interchangeably. Blood BLOOD SPECIMEN / Unknown 08/29/2024 11:39 AM EDT 08/29/2024 11:40 AM EDT Kang Dean PA-C CHEMISTRY ORDERABLES Final Result [facility] [address] [place] [address], [facility] [phone] [facility] [address] [place] [address], [facility] [phone] * CT ABDOMEN PELVIS WO CONTRAST Additional Contrast? None (07/29/2021 11:27 AM EDT) Anatomical Region Laterality Modality Abdomen, Pelvis, Hip Computed To mography 07/29/2021 11:2 8 AM EDT Impressions 07/29/2021 12:27 PM EDT 1. Interval resolution of mild left hydronephrosis and renal pelvis dilatation. 2. Decreased stone load in the left kidney now showing only a punctate calculus in the lower pole several new calculi in the urinary bladder are presumed recently passed from the left kidney. 3. Redemonstration of left-sided bladder diverticulum containing a small calculus. Narrative 07/29/2021 12:27 PM EDT EXAMINATION: CT OF THE ABDOMEN AND PELVIS [...] inguinal hernia unchanged. No acute bony abnormality. Procedure Note Jose Espinoza MD - 07/29/2021 EXAMINATION: CT OF THE ABDOMEN AND PELVIS WITHOUT CONTRAST 07/29/2021 11:16 am TECHNIQUE: CT of the abdomen and pelvis was performed without the administration of intravenous contrast. Multiplanar reformatted images are provided forreview. Dose modulation, iterative reconstruction, and/or weight based adjustmentof the mA/kV was utilized to reduce the radiation dose to as low asreasonably achievable. COMPARISON: 07/16/2021 HISTORY: ORDERING SYSTEM PROVIDED HISTORY: Renal colic TECHNOLOGIST PROVIDED HISTORY: FINDINGS: Lower Chest: The visualized heart and lungs show no acute abnormalities. Organs: Liver, spleen, pancreas, adrenal glands and gallbladder show no significant abnormalities. Unremarkable right kidney and ureter. Left kidney shows interval resolution of hydronephrosis and significant decreased stone load. There is now only a punctate calculus in thelower pole. Several renal pelvis calculi again noted. Dilatation of the left renal pelvis has also resolved. Several new sub 5 mm calculi noted dependently at the bladder base likely passed from the left kidney given interval decrease in stone load as noted above. Left bladderdiverticulum containing a calculus is again noted. GI/Bowel: There is limited evaluation due to absence of oral contrast. Stomach grossly normal. Small bowel shows no obstruction or focallesions. No evidence for appendicitis. Evaluation of the colon shows nosignificant abnormalities. Pelvis: Urinary bladder described above. Mild prostate glandenlargement. Pelvic phleboliths. No suspicious pelvic mass. Peritoneum/Retroperitoneum: No free intraperitoneal fluid. Nosignificant lymphadenopathy. Mild atherosclerotic disease. Bones/Soft Tissues: Small fat containing left inguinal hernia unchanged.No acute bony abnormality. IMPRESSION: 1. Interval resolution of mild left hydronephrosis and renal pelvis dilatation. 2. Decreased stone load in the left kidney now showing only a punctate calculus in the lower pole several new calculi in the urinary bladderare presumed recently passed from the left kidney. 3. Redemonstration of left-sided bladder diverticulum containing a small calculus. Dolly Lopez OUTPATIENT CODER - MEDICAL CENTER DIRECTOR IMG CT ORDERABLES F inal Result from Last 3 Months or Most Recently Relevant to Health Maintenance Insurance A[employer] MEDICARE Advance Directives * Full Code (Latest Code Status on File) Date Activated Date Inactivated Comments 07/09/2021 7:39 PM 07/10/2021 6:34 PM * Full Code Date Activated Date Inactivated Comments 07/09/2021 2:57 PM 07/09/2021 7:38 PM Healthcare Agents on File Name Relationship Healthcare Agent Relationshi p Communication Christiane Freeze Spouse Primary Decision Maker Jesusita Kilgore Child Secondary Decision Maker Care Teams Packing Room Worker Relationship Specialty Start Date End Date Casa Carreno MD [address] [place] [address] PCP - General Family Medicine 07/05/21
--- OUTSIDE RECORDS SUMMARY | 2025-01-13 11:05 | XMS_ITS | Encounter Summary ---
Author Organization [facility] Address [address] [place] [address] Care Team Providers Care Medicine And Health Service Manager Name Role Phone Casa Carreno MD Primary Care Provider [phone] Encounter Details Date Type Department Care Team (Late st Contact Info) Description 06/29/2023 Clinisync Result Encounter [facility] External Department Unsolicited Portillo Funes MD [address] [facility] [address] [place] [id number] Social History Tobacco Use Types Packs/Day Years Used Date Smoking Tobacco: Every Day Cigarettes 1 55.7 Started: 1970 Smokeless Tobacco: Never Alcohol Use Standard Drinks/Week Comments Yes 20 (1 standard drink = 0.6 oz pu re alcohol) Sex and Gender Information Value Date Recorded Sex Assigned at Not on file Legal Sex Male 10:38 AM EDT Gender Identity Not on file Sexual Orientation Not on file documented as of this encounter Plan of Treatment Not on file documented as of this encounter Procedures Procedure Name Priority Date/Time Associated Diagnosis Comments XR FOREIGN BODY EYE 06/29/2023 1 2:53 PM EST documented in this encounter Results * XR FOREIGN BODY EYE (06/29/2023 12:53 PM EST) Anatomical Region Laterality Modality Other 06/29/2023 12:5 3 PM EST Narrative 06/29/2023 12:56 PM EST The [address] [address] XRay Report Signed Patient: JACK HAYWARD MR#: [id number] : 1955 Acct:[id number] Age/Sex: 68 / M ADM Date: 06/29/23 Loc: LAB Attending Dr: Portillo Funes M.D. Ordering Physician: Portillo Funes M.D. Date of Service: 06/29/23 Procedure(s): XR foreign body eye Accession Number(s): [id number] cc: NELLY WALTERS ; Portillo Funes M.D. [place] [address] Patient Name: JACK HAYWARD MRN: [id number] date: 1955 Sex: M Assigned Patient Location: LAB Current Patient Location: LAB Accession/Order Number: [id number] Exam Date: 06/29/2023 12:31 Report Date: 06/29/2023 12:53 At the request of: PORTILLO FUNES Procedure: XR foreign body eye EXAMINATION: XR foreign body eye HISTORY: for mri COMPARISON: No relevant comparison available. FINDINGS: ORBITS: Negative for a metallic foreign body. OTHER: Negative. XR/XR foreign body eye IMPRESSION: 1. No metallic foreign body within the orbits. Electronically authenticated by: NOLBERTO PEARSON Date: 06/29/2023 12:53 Dictated By: Nolberto Pearson M.D. Signed By: 06/29/23 1256 DD/ 1253 TD/TT: Nicker And Breaker: Procedure Note Radiology, Radiologist, MD - 06/29/2023 [place] [address] XRay Report Signed Patient: JACK HAYWARD AMR#: [id number] : 1955cct:[id number] Age/Sex: 68 / MADM Date: 06/29/23 Loc: LAB Attending Dr: Portillo Funes M.D. Ordering Physician: Portillo Funes M.D. Date of Service: 06/29/23 Procedure(s): XR foreign body eye Accession Number(s): [id number] cc: NELLY WALTERS ; Portillo Funes M.D. The [address] [address] Patient Name: JACK HAYWARD MRN: [facility]:[id number] date: 1955 Sex: M Assigned Patient Location: LAB Current Patient Location: LAB Accession/Order Number: [id number] Exam Date: 06/29/2023 12:31 Report Date: 06/29/2023 12:53 At the request of: PORTILLO FUNES Procedure: XR foreign body eye EXAMINATION: XR foreign body eye HISTORY: for mri COMPARISON: No relevant comparison available. FINDINGS: ORBITS: Negative for a metallic foreign body. OTHER: Negative. XR/XR foreign body eye IMPRESSION: 1. No metallic foreign body within the orbits. Electronically authenticated by: NOLBERTO PEARSON Date: 06/29/2023 12:53 Dictated By: Nolberto Pearson M.D. Signed By:06/29/23 1256 DD/ 1253 TD/TT: Nicker And Breaker: us Portillo Funes MD [facility] Final Resul t documented in this encounter Visit Diagnoses Not on filedocumented in this encounter Care Teams Medicine And Health Service Manager Relationship Specialty Start Date End Date Casa Carreno MD PCP - General Family Medicine 01/28/23 documented as of this encounter
--- OUTSIDE RECORDS SUMMARY | 2025-01-13 11:05 | XMS_ITS | Clinical Summary ---
Author Organization [employer] [facility] tem Address [id number] [address] [place] [address] Care Team Providers Care Ocularist Name Role Phone Unavailable Primary Care Provider Unavailabl e Allergies No known active allergies Medications aspirin 81 mg aspirin 81 mg tablet,delayed release TAKE 1 TABLET BY MOUTH DAILY Active lisinopriL (PRINIVIL,ZEST RIL) 5 mg tablet lisinopril 5 mg tablet TAKE 1 TABLET BY MOUTH EVERY DAY Active metoprolol succinate XL (TOPROL XL) 25 mg 24 hr tablet metoprolol succinate ER 25 mg tablet,extended release 24 hr TAKE 1/2 (ONE-HALF) OF A TABLET BY MOUTH DAILY Active rosuvastatin (CRESTOR) 40 mg tablet rosuvastatin 40 mg tablet TAKE 1 TABLET BY MOUTH EVERY DAY Active nitroglycerin (NITROSTAT) 0.4 MG SL tablet nitroglycerin 0.4 mg sublingual tablet Active mupirocin (BACTROBAN) 2 % ointmentIndica tions:Epistaxi s Applied intranasally bilaterally 2 times daily 15 g 2 Active eucalyptus-pep permint oil solutionIndica tions:Epistaxi s Administer intranasally bilaterally twice daily 30 mL 2 Active clopidogreL (PLAVIX) 75 mg tablet Take 75 mg by mouth in the morning. 2 Active tamsulosin (FLOMAX) 0.4 mg capsule Take 0.4 mg by mouth in the morning. 2 Active metoprolol succinate XL (TOPROL XL) 25 mg 24 hr tablet Take 25 mg by mouth in the morning. 2 Active rosuvastatin calcium (ROSUVASTATIN ORAL) Take 40 mg by mouth daily. 2 Active mupirocin (BACTROBAN) 2 % ointmentIndica tions:Epistaxi s APPLy IN EACH NOSTRIL TWICE DAILY 22 g 2 Active Active Problems Problem Noted Date Diagnosed Date Epistaxis 07/25/2021 Social History Tobacco Use Types Packs/Day Years Used Date Smoking Tobacco: Every Day Cigarettes Smokeless Tobacco: Never Tobacco Cessation:Ready to Q uit: Yes; Counseling Given: Yes Alcohol Use Standard Drinks/Week Comments Not Currently [...] Sign Reading Time Taken Comments Blood Pressure 118/66 08/26/2021 4:37 PM EDT Pulse 88 07/18/2021 4:30 PM EST Temperature 36.3 C (97.3 F) 07/18/2021 4:10 PM EST Respiratory Rate 27 07/18/2021 4:30 PM EST Oxygen Saturation 95% 07/18/2021 4:30 PM EST Inhaled Oxygen Concentration - - Weight 63.5 kg (140 lb) 11/25/2021 2:01 PM EDT Height 175.3 cm (5' 9 ) 11/25/2021 2:01 PM EDT Body Mass Index 20.67 11/25/2021 2:01 PM EDT Plan of Treatment Health Maintenance Due Date Last Done Comments Depression Screening 1966 Tobacco Screening 1966 Adult BMI Screening 02/06/1972 Zoster (Shingles) Vaccine (1 of 2) 02/06/2004 Abdominal Aortic Aneurysm (AAA) Screen 2019 Fall Risk Screening 2019 Influenza Vaccine 01/09/2025 03/14/2011 DTaP,Tdap and Td Vaccines (2 - Td or Tdap) 10/13/2029 10/14/2019 Medical Devices Not on file Insurance [employer] MEDICARE
--- OUTSIDE RECORDS SUMMARY | 2025-01-13 11:05 | XMS_ITS | Patient Health Record ---
Author Organization [facility] in [place] Address [address] [place] [address] Care Team Providers Care Supervisor Facepiece Line Name Role Phone Renée Ramos Primary Care Provider Allergies Allergen (clinical drug ingredient) Drug/Non Drug Allergy documented on EMR Reaction Allergy Type Onset Date Status lisinopril Lisinopril throat swelling Drug Allergy Active Results Component Value Reference Range Notes XR chest 2V Reviewed date:06/20/2024 08:27:42 AM Interpretation: Performing Lab: Notes/Report: Source Facility: [place] [address] XRay Report Signed Patient: JACK HAYWARD MR#: [id number] : 1955 Acct:[id number] Age/Sex: 69 / M ADM Date: 06/11/24 Loc: RAD Attending Dr: RENÉE RAMOS Ordering Physician: RENÉE RAMOS Date of Service: 06/11/24 Procedure(s): XR chest 2V Accession Number(s): [id number] cc: RENÉE RAMOS [place] [id number] Patient Name: JACK HAYWARD MRN: [id number] date: 1955 Sex: M Assigned Patient Location: RAD Current Patient Location: RAD Accession/Order Number: [id number] Exam Date: 06/11/2024 11:20 Report Date: 06/11/2024 [...] chest is essentially unchanged. Electronically authenticated by: SHIVA DSOUZA Date: 06/11/2024 17:02 Dictated By: Shiva Dsouza M.D. Signed By: 06/11/241703 DD/ 01 TD/TT: Dairy Consultant: [place] [address] XRay Report Signed Patient: JACK HAYWARD MR#: [id number] : 1955 Acct:[id number] Age/Sex: 69 / M ADM Date: 06/11/24 Loc: RAD Attending Dr: RENÉE RAMOS Ordering Physician: RENÉE RAMOS Date of Service: 06/11/24 Procedure(s): XR alcon st 2V Accession Number(s): [id number] cc: RENÉE RAMOS [place] [id number] Patient Name: JACK HAYWARD MRN: [id number] date: 1955 Sex: M Assigned Patient Location: [facility] Current Patient Location: [facility] Accession/Order Number: [id number] Exam Date: 06/11/2024 11:20 Report Date: 06/11/2024 17:02 At the request of: RENÉE RAMOS Procedure: XR chest 2V EXAM: XR chest 2V HISTORY: J40 Bronchitis COMPARISON: 08/19/2023 TECHNIQUE: Upright P A and lateral chest x-ray FINDINGS: The heart is not enlarged and the vasculature is not distended. No acute infiltrate, effusion or pneumothorax is identified. The osseous structures are gross ly intact. XR/XR chest 2V IMPRESSION: No acute infiltrate or evidence of cardiac decompensation. The overall appearance of the chest is essentially unchanged. Electronically authenticated by: SHIVA DSOUZA Date: 06/11/2024 17:02 Dictated By: Shiva Dsouza M.D. Signed By: 06/11/241703 DD/ 01 TD/TT: Dairy Consultant: DANN Reviewed date:02/04/2024 02:15:23 PM Interpretation: Performing Lab: Notes/Report: Source Facility: [place] [address] [place] [address] Cardiac Rehab Report Signed Patient: JACK HAYWARD MR#: [id number] : 1955 Acct:[id number] Age/Sex: 68 / M ADM Date: 02/03/24 Loc: CR Attending Dr: Non-Staff Physician Felicia Ordering Physician: Justice Mccray D.O. Date of Service: 02/03/24 Procedure(s): ITP Accession Number(s): [id number] cc: [facility] Test Date: 2024-02-03 Pat Name: JACK HAYWARD Department: Room: - Gender: Male Motivational Speaker: : 1955 Requested By: JUSTICE MCCRAY Order Number: [id number] Reading MD: JUSTICE MCCRAY Interpretive Statements Session Date: Electronically Signed On 02-03-2024 23:11:40 EDT by JUSTICE MCCRAY Dictated By: Justice Mccray D.O. Signed By: 02/03/24231002/03/242310 DD/ 142 TD/TT: Dairy Consultant: [place] [address] Cardiac Rehab Report Signed Patient: JACK HAYWARD MR#: [id number] : 1955 Acct:[id number] Age/Sex: 68 / M ADM Date: 02/03/24 Loc: CR Attending Dr: Non-Staff Physician Felicia Ordering Physician: Justice Mccray D.O. Date of Service: 02/03/24 Procedure(s): ITP Accession Number(s): [id number] cc: [facility] Test Date: 2024-02-03 Pat Name: JACK Herzog Department: 17 Room: - Gender: Male Motivational Speaker: : 1955 Requested By: JUSTICE MCCRAY Order Number: [id number] Yury MD: JUSTICE MCCRAY Interpretive Statements Session Date: Electronically Iris d On 02-03-2024 23:11:40 EDT by JUSTICE MCCRAY Dictated By: Justice Mccray D.O. Signed By: 02/03/24231002/03/24 231 DD/ 1429 TD/TT: Dairy Consultant: DANN Reviewed date:03/22/2024 08:49:29 AM Interpretation: Performing Lab: Notes/Report: Source Facility: [place] [address] Cardiac Rehab Report Signed Patient: JACK HAYWARD MR#: [id number] : 1955 Acct:[id number] Age/Sex: 69 / M ADM Date: 02/03/24 Loc: CR Attending Dr: Non-Staff Physician Felicia Ordering Physician: Justice Mccray D.O. Date of Service: 03/18/24 Procedure(s): ITP Accession Number(s): [id number] cc: [facility] Test Date: 2024-03-18 Pat Name: JACK HAYWARD Department: Room: - Gender: Male Motivational Speaker: : 1955 Requested By: JUSTICE MCCRAY Order Number: [id number] Yury MD: JUSTICE MCCRAY Interpretive Statements Session Date: Electronically Signed On 03-21-2024 22:44:13 EST by JUSTICE MCCRAY Dictated By: Justice Mccray D.O. Signed By: 03/21/24224303/21/242243 DD/ 0736 TD/TT: Dairy Consultant: [place] [address] Cardiac Rehab Report Signed Patient: JACK HAYWARD MR#: [id number] : 1955 Acct:[id number] Age/Sex: 69 / M ADM Date: 02/03/24 Loc: CR Attending Dr: UmuStaff Physician Duarte Ordering Physician: Justice Mccray D.O. Date of Service: 03/18/24 Procedure(s): ITP Accession Number(s): [id number] cc: [facility] Test Date: 2024-03-18 Pat Name: JACK Herzog Department: 17 Room: - Gender: Male Motivational Speaker: : 1955 Requested By: JUSTICE MCCRAY Order Number: [id number] Reading MD: JUSTICE MCCRAY Interpretive Statements Session Date: Electronically Iris d On 03-21-2024 22:44:13 EST by JUSTICE MCCRAY Dictated By: Justice Mccray D.O. Signed By: 03/21/24224303/21/242243 DD/ 5 TD/TT: Dairy Consultant: NM gardenia perf SPECT rest str Reviewed date:01/02/2025 11:18:44 AM Interpretation: Performing Lab: Notes/Report: Source Facility: [place] [address] Nuclear Medicine Report Signed Patient: JACK HAYWARD MR#: [id number] : 1955 Acct:[id number] Age/Sex: 69 / M ADM Date: 12/30/24 Loc: LAB Attending Dr: MICHELLE ASHRAF Ordering Physician: MICHELLE ASHRAF Date of Service: 12/30/24 Procedure(s): NM gardenia perf SPECT rest str Accession Number(s): [id number] cc: RENÉE RAMOS ; MICHELLE ASHRAF Patient Name: JACK HAYWARD MR#: [id number] : 1955 Exam Date: 12/30/2024 Ordering Doctor: DR MICHELLE ASHRAF M.D. RADIOLOGY REPORT PROCEDURE: NM GARDENIA PERF SPECT REST STR COMPARISON: None. INDICATIONS: CORONARY ARTERY DISEASE INVOLVING PRAIRIE BAND CORONARY ARTERY TECHNIQUE: Exam Description: Stress/Rest one day protocol gated SPECT Rest Imagin.4 mCi Tc-99m Cardiolite IV on 12/30/2024 Stress Imaging 30.8 mCi Tc-99m Cardiolite IV on 12/30/2024 Exercise Protocol: 0.4 mg Lexiscan given IV Heart Rate (bpm): Rest: 63 Max: 108 PMHR: 72 Blood Pressure: Rest: 150/90 Max: 150/90 Symptoms: Rest and peak stress ECG findings were pending, and the exercise portion of the study was pending per attending physician [facility]. For more details, please see separate cardiac stress test report. FINDINGS: QUALITY OF STUDY: Good PERFUSION DEFECT: LOCATION: N/A SIZE: N/A SEVERITY: N/A TYPE: N/A WALL MOTION: Normal wall motion LV SIZE: 81 mL. TID / TCD: 1.0 LVEF: Calculated EF 64%. SUMMARY: Myocardial perfusion imaging study is normal CONCLUSION: 1. Myocardial perfusion is normal with soft tissue attenuation 2. Global left ventricular systolic function is normal; EF 64% 3. No evidence of significant transient ischemic dilatation Dictated by: Jenniffer Francisco M.D. on 12/30/2024 at 17:28 Approved by: Jennfifer Francisco M.D. on 12/30/2024 at 17:30 Dictated By: Jenniffer Francisco M.D. Signed By: 12/30/241730 DD/ 29 TD/TT: Dairy Consultant: [place] [address] Nuclear Medicine Report Signed Patient: JACK HAYWARD MR#: [id number] : 1955 Acct:[id number] Age/Sex: 69 / M ADM Date: 12/30/24 Loc: LAB Attending Dr: MICHELLE ASHRAF Ordering Physician: MICHELLE ASHRAF Date of Service: 12/30/24 Procedure(s): NM gardenia perf SPECT rest str Accession Number(s): [id number] cc: RENÉE RAMOS ; MICHELLE ASHRAF Patient Name: JACK HAYWARD MR#: [id number] : 1955 Exam Date: 12/30/2024 Ordering Doctor: DR MICHELLE ASHRAF M.D. RADIOLOGY REPORT PROCEDURE: NM GARDENIA PE RF SPECT REST STR COMPARISON: None. INDICATIONS: CORONAR Y ARTERY DISEASE INVOLVING PRAIRIE BAND CORONARY ARTERY TECHNIQUE: Exam Description: Stress/Rest one day protocol gated SPECT Rest Imagin.4 mC i Tc-99m Cardiolite IV on 12/30/2024 Stress Imaging 30.8 mCi Tc-99m Cardiolite IV on 12/30/2024 Exercise Protocol: 0 .4 mg Lexiscan given IV Heart Rate (bpm): Rest: 63 Max: 108 PMHR: 72 Blood Pressure: Res t: 150/90 Max: 150/90 Symptoms: Rest and peak stress ECG findings were pending, and the exercise portion of the study was pendin g per attending physician [facility]. For more details, please see separate cardiac stress test report. FINDINGS: QUALITY OF STUDY: Good PERFUSION DEFECT: LOCATION: N/A SIZE: N/A SEVERITY: N/A TYPE: N/A WALL MOTION: Normal wall motion LV SIZE: 81 mL. TID / TCD: 1.0 LVEF: Calculated EF 64%. SUMMARY: Myocardial perfusion imaging study is normal CONCLUSION: 1. Myocardial perfusion is normal with soft tissue attenuation 2. Global left ventricular systolic function is normal; EF 64% 3. No evidence of significant transient ischemic dilatation Dictated by: Jenniffer Francisco M.D. on 12/30/2024 at 17:28 Approved by: Jenniffer Francisco M.D. on 12/30/2024 at 17:30 Dictated By: Jenniffer Francisco M.D. Signed By: 12/30/241730 DD/ 29 TD/TT: Dairy Consultant: DANN Reviewed date:04/20/2024 10:06:26 AM Interpretation: Performing Lab: Notes/Report: Source Facility: [facility] [place] [address] [place] [address] Cardiac Rehab Report Signed Patient: JACK HAYWARD MR#: [id number] : 1955 Acct:[id number] Age/Sex: 69 / M ADM Date: 02/03/24 Loc: CR Attending Dr: Non-Staff Physician Felicia Ordering Physician: Justice Mccray D.O. Date of Service: 04/19/24 Procedure(s): DANN Accession Number(s): [id number] cc: [facility] Test Date: 2024-04-19 Pat Name: JACK HAYWARD Department: Room: - Gender: Male Motivational Speaker: : 1955 Requested By: JUSTICE MCCRAY Order Number: [id number] Yury MD: JUSTICE MCCRAY Interpretive Statements Session Date: Electronically Signed On 04-19-2024 19:43:34 EST by JUSTICE MCCRAY Dictated By: Justice Mccray D.O. Signed By: 04/19/24194304/19/241943 DD/ 100 TD/TT: Dairy Consultant: [place] [address] Cardiac Rehab Report Signed Patient: JACK HAYWARD MR#: [id number] : 1955 Acct:[id number] Age/Sex: 69 / M ADM Date: 02/03/24 Loc: CR Attending Dr: Non-Staff Physician Felicia Ordering Physician: Justice Mccray D.O. Date of Service: 04/19/24 Procedure(s): ITP Accession Number(s): [id number] cc: [facility] Test Date: 2024-04-19 Pat Name: JACK Herzog Department: 17 Room: - Gender: Male Motivational Speaker: : 1955 Requested By: JUSTICE MCCRAY Order Number: [id number] Yury MD: JUSTICE MCCRAY Interpretive Statements Session Date: Electronically Iris d On 04-19-2024 19:43:34 EST by JUSTICE MCCRAY Dictated By: Justice Mccray D.O. Signed By: 04/19/24194304/19/241943 DD/ 1001 TD/TT: Dairy Consultant: PROF Shields(COMP METB) Reviewed date:12/30/2024 03:48:31 PM Interpretation: Performing Lab: Notes/Report: [facility] , Sodium 145 136-145 mmol/L Potassium 3.4 3.5-5.1 mmol/L Chloride 109 98-107 mmol/L Carbon Dioxide 25.1 21.0-32.0 mmol/L Anion Gap 14.3 Glucose 101 74-106 mg/dL Blood Urea Nitrogen 12.0 7.0-18.0 mg/dL Creatinine 1.08 0.70-1.30 mg/dL Estimated GFR ( Aylin >60 >=60 mL/min/1.73m 2 Estimated GFR (Non- Suly >60 >=60 mL/min/1.73m 2 BUN Creatinine Ratio 11.1 Calcium 9.1 8.5-10.1 mg/dL Bilirubin Total 0.4 0.2-1.0 mg/dL Aspartate Amino Transferase 16 15-37 U/L Alanine Aminotransferase 30 16-63 U/L Alkaline Phosphatase 84 46-116 U/L Total Protein 7.6 6.4-8.2 g/dL Albumin Level 3.7 3.4-5.0 g/dL Globulin 3.9 Albumin Globulin Ratio 0.9 Performing Lab: see note ML - [facility] LB LIPID PROFILE Reviewed date:12/30/2024 03:48:31 PM Interpretation: Performing Lab: Notes/Report: [facility] , Triglycerides 120 <=150 mg/dL Cholesterol 117 <=200 mg/dL HDL Cholesterol 48 40-60 mg/dL > or =60 mg/dl - LOW CARDIOVASCULAR RISK <40 mg/dl - HIGH CARDIOVASCULAR RISK LDL Cholesterol Calculated 45.0 <100 mg/dl OPTIMAL 100-129 mg/dl NEAR OR ABOVE OPTIMAL 130-159 mg/dl BORDERLINE HIGH 160-189 mg/dl HIGH >190 mg/dl VERY HIGH VLDL CHOLESTEROL 24.0 Chol HDL Ratio 2.4 3.3 - 4.4 LOW RISK 4.4 - 7.1 AVERAGE RISK 7.1 - 11.0 MODERATE RISK >11.0 HIGH RISK Performing Lab: see note ML - [facility] LB CBC AUTO DIFF Reviewed date:12/30/2024 03:48:31 PM Interpretation: Performing Lab: Notes/Report: [facility] , White Blood Count 10.5 4.0-11.0 10 3/uL Red Blood Count 5.12 4.70-6.10 10 6/uL Hemoglobin 15.1 14.0-18.0 g/dL Hematocrit 43.1 42.0-54.0 % Mean Corpuscular Volume 84.2 80.0-94.0 fL Mean Corpuscular Hemoglobin 29.5 25.9-34.0 pg Mean Corpuscular HGB Conc 35.0 29.9-35.2 g/dL Red Cell Distribution Width 12.7 11.0-15.0 % Platelet Count 240 150-450 10 3/uL Mean Platelet Volume 9.7 9.5-13.5 fL Neutrophils Percent Auto 71.3 43.0-75.0 % Lymphocytes Percent Auto 19.5 20.5-60.0 % Monocytes Percent Auto 5.6 1.7-12.0 % Eosinophils Percent Auto 2.7 0.9-7.0 % Basophils Percent Auto 0.6 0.2-2.0 % Immature Granulocytes Pct Auto 0.3 0.0-0.5 % Neutrophils Absolute Auto 7.5 1.4-6.5 10 3/uL Lymphocytes Absolute Auto 2.0 1.2-3.8 10 3/uL Monocytes Absolute Auto 0.6 0.3-0.8 10 3/uL Eosinophils Absolute Auto 0.3 0.0-0.7 10 3/uL Basophils Absolute Auto 0.1 0.0-0.1 10 3/uL Immature Granulocytes Abs Auto 0.03 0.00-0.03 10 3/uL Performing Lab: see note ML - [facility] LB ITP Reviewed date:02/18/2024 08:40:23 AM Interpretation: Performing Lab: Notes/Report: Source Facility: [place] [address] Cardiac Rehab Report Signed Patient: JACK HAYWARD MR#: [id number] : 1955 Acct:[id number] Age/Sex: 69 / M ADM Date: 02/03/24 Loc: CR Attending Dr: Non-Staff Physician Felicia Ordering Physician: Justice Mccray D.O. Date of Service: 02/17/24 Procedure(s): ITP Accession Number(s): [id number] cc: [facility] Test Date: 2024-02-17 Pat Name: JACK HAYWARD Department: Room: - Gender: Male Motivational Speaker: : 1955 Requested By: JUSTICE MCCRAY Order Number: [id number] Yury MD: JUSTICE MCCRAY Interpretive Statements Session Date: Electronically Signed On 02-17-2024 22:54:00 EDT by JUSTICE MCCRAY Dictated By: Justice Mccray D.O. Signed By: 02/17/24225302/17/24 225 DD/ 1243 TD/TT: Dairy Consultant: [place] [address] Cardiac Rehab Report Signed Patient: JACK HAYWARD MR#: [id number] : 1955 Acct:[id number] Age/Sex: 69 / M ADM Date: 02/03/24 Loc: CR Attending Dr: Non-Staff Physician Felicia Ordering Physician: Justice Mccray D.O. Date of Service: 02/17/24 Procedure(s): ITP Accession Number(s): [id number] cc: [facility] Test Date: 2024-02-17 Pat Name: JACK Herzog Department: 17 Room: - Gender: Male Motivational Speaker: : 1955 Requested By: JUSTICE MCCRAY Order Number: [id number] Reading MD: JUSTICE MCCRAY Interpretive Statements Session Date: Electronically Iris d On 02-17-2024 22:54:00 EDT by JUSTICE MCCRAY Dictated By: Justice Mccray D.O. Signed By: 02/17/24225302/17/242253 DD/ 42 TD/TT: Dairy Consultant: Reason For Referral No Information Medications Medication SIG (Take, Route, Frequency, Duration) Notes Start Date End Date Status Isosorbide Mononitrate ER 30 MG 1 tablet in the morning Orally Once a day Active Metoprolol Succinate [...] needed Inhalation every 4 hrs 06/07/2024 Active Lexapro 10 MG as directed Orally Once a day for 30 days take 1/2 tablet po daily for first week than increase dose to 1 tablet po daily 01/12/2025 Active Aspirin Adult Low Dose 81 MG 1 tablet Orally Once a day Active Clopidogrel Bisulfate 75 MG 1 tablet Orally Once a day Active Doxepin HCl 10 MG 1 Orally tid = prn anxiety for 30 days 01/26/2023 Active Flomax 0.4 MG 1 capsule Orally Once a day Active Social History [...] Problem Status W/U Status Risk Notes Problem 35117906 Essential (primary) hypertension (I10) Active confirmed Problem Generalized anxiety disorder (23654859) Generalized anxiety disorder (F41.1) Active confirmed Problem 432034225 Sensorineural hearing loss, bilateral (H90.3) Active confirmed Problem 61152552 Unspecified hearing loss, bilateral (H91.93) Active confirmed Problem 8093986940555 Tinnitus, left e ar (H93.12) Active confirmed Problem 952843605 Deviated nasal septum (J34.2) Active confirmed Problem 127549377 Other specified disorders of nose and nasal sinuses (J34.89) Active confirmed Problem 9854005254233 Epistaxis (R04.0) Active confirme d Problem COPD - Chronic obstructive pulmonary disease (48651907) COPD (chronic obstructive pulmonary disease) (J44.9) Active confirmed Problem Hyperglycemia (51171815) Hyperglycemia (R73.9) Active confirmed Problem Alcohol abuse (23828145) Alcohol abuse (F10.10) Active confirmed Problem Constipation (68613106) Constipation (K59.00) Active confirmed Problem Nephrolithiasis (73512085) Nephrolithiasis (N20.0) Active confirmed Problem Multiple nodules of lung (852624099) Lung nodules (R91.8) Active confirmed Problem Porokeratosis (041276950) Porokeratosis (Q82.8) Active confirmed Problem Bloody nose (R04.0) Active confirmed Problem Difficulty swallowing (063531459) Swallowing difficulty (R13.10) Active confirmed Problem Inguinal hernia (230945923) Inguinal hernia (K40.90) Active confirmed Problem Old myocardial infarction (5884355) History of [place] (myocardial infarction) (I25.2) Active confirmed Problem Mixed anxiety and depressive disorder (629919011) Anxiety and depression (F41.9) Active confirmed Vital Signs Heart Rate 75 /min 06/07/2024 Oximetry 95 % 06/07/2024 Blood pressure diastolic 62 mm Hg 01/12/2025 Height 66 in 01/12/2025 Blood pressure systolic 110 mm Hg 01/12/2025 Weight 146.6 lbs 01/12/2025 BMI 23.66 kg/m2 01/12/2025 Encounters Encounter Location Date Provider Diagnosis [facility] [address] [place] [address] 06/10/2024 Renée Ramos Bronchitis J40 [facility] [address] [place] [address] 06/20/2024 Renée Ramos [facility] [address] [place] [address] 07/15/[address] [facility] [address] [place] [address] 01/05/2025 Renée Ramos [facility] [address] [place] [address] 06/07/2024 Renée Ramos Bronchitis J40 [facility] [address] [place] [address] 01/12/2025 Renée Richard COPD (chronic obstructive pulmonary disease) J44.9 ; Anxiety and depression F41.9 ; Constipation K59.00 and Swallowing difficulty R13.10 Assessments Encounter Date Diagnosis (ICD Code) Assessment Notes Treatment Notes Treatment Clinical Notes Section Notes 06/07/2024 Bronchitis (ICD-10 - J40) discussed smoking cessation fu if not improving 01/12/2025 COPD (chronic obstructive pulmonary disease) (ICD-10 - J44.9) sample of spiriva and breztri given notify office for rx when needed 01/12/2025 Anxiety and depression (ICD-10 - F41.9) fu me 1 month continue prn doxepin 06/10/2024 Bronchitis (ICD-10 - J40) 01/12/2025 Constipation (ICD-10 - K59.00) discussed GI referral 01/12/2025 Swallowing difficulty (ICD-10 - R13.10) discussed GI consult wants to think about it 06/07/2024 Other needs to schedule wellness Plan Of Treatment Pending Test Test Name Order Date CMP (COMPLETE METABOLIC PANEL) 3 HEMOGLOBIN A1C (GLYCO) 10/09/2022 HEMOGLOBIN A1C (GLYCO) 01/12/2025 INSULIN, TOTAL 10/09/2022 LIPID PANEL (CHOL/TRIG/HDL/LDL) 10/10/19 23 CBC WITH DIFF 10/09/2022 PSA, PROSTATE-SPECIFIC ANTIGEN 3 URIC ACID 10/09/2022 XR Abdomen AP (1 view) (KUB) * 5 STOOL OCCULT BLOOD 10/09/2022 THYROID PANEL (T4/TSH/FREE T3) 3 THYROID PANEL (T4/TSH/FREE T3) 5 PSA, SCREENING 01/12/2025 Next Appt Details Provider Name:Renée lin, 02/14/2025 11:00:00 AM, [address] [facility], [place], [address], Insurance Providers Payer Name Payer Address Payer Phone Subscriber Number Group Number Insured Name Patient Relationship to Insured Coverage Start Date Coverage End Date [employer] [address] [place] [address] [id number] Jack Hayward Self - patient is the insured 2 Medical (General) History Medical History History ICD Code Inguinal hernia K40.90 Nephrolithiasis N20.0 Hyperglycemia R73.9 COPD (chronic obstructive pulmonary dise ase) J44.9 Porokeratosis Q82.8 Alcohol abuse F10.10 Anxiety F41.9 History of [place] (myocardial infarction) I2 5.2 Cardiac stents present Surgical History Surgery Date(Month/Year) Hernia repair- Dr Barajas 08/2023 Kidney Stones Removed Hospitalization History Reason Date(Month/Year) Kidney stone blasting
--- OUTSIDE RECORDS SUMMARY | 2025-01-13 11:05 | XMS_ITS | Encounter Summary ---
Author Organization [facility] Address [address] [place] [address] Care Team Providers Care Prosthetic Dentist Name Role Phone Casa Carreno MD Primary Care Provider + Encounter Details Date Type Department Care Team (Late st Contact Info) Description 07/24/2023 Orders Only [facility] [address] [facility] [address] [place] [address] Sherly Daniel, JOMAR [address] [facility] [address] [place] [address] Asymmetric SNHL (sensorineural hearing loss); Left-sided tinnitus; SNHL (sensory-neural hearing loss), asymmetrical; Otalgia, left Social History Tobacco Use Types Packs/Day Years [...] documented as of this encounter Visit Diagnoses Diagnosis Asymmetric SNHL (sensorineural hearing loss) Sensorineural hearing loss, asymmetrical Left-sided tinnitus Unspecified tinnitus SNHL (sensory-neural hearing loss), asymmetrical Sensorineural hearing loss, asymmetrical Otalgia, left documented in this encounter Care Teams Prosthetic Dentist Relationship Specialty Start Date End Date Casa Carreno MD PCP - General Family Medicine 9/20/23 documented as of this encounter
--- OUTSIDE RECORDS SUMMARY | 2025-01-13 11:05 | XMS_ITS | Clinical Summary ---
Author Organization [facility] Address [address] [place] [address] Care Team Providers Care Cma Name Role Phone Casa Carreno MD Primary Care Provider [phone] Allergies Active Allergy Reactions Criticality Noted Date Comments Lisinopril Angioedema 12/12/2022 Medications aspirin 81 MG EC tablet Take 1 tablet by mouth in the morning. Active amLODIPine (Norvasc) 5 MG tablet Take 5 mg by mouth in the morning. 12/19/2022 Active buPROPion SR (Wellbutrin SR) 150 MG 12 hr tablet Take 150 mg by mouth in the morning and 150 mg before bedtime. 06/13/2022 Active clopidogrel (Plavix) 75 MG tablet Take 75 mg by mouth in the morning. 02/10/2023 Active doxepin (SINEquan) 10 MG capsule Take 10 mg by mouth 3 (three) times a day as needed. 01/26/2023 Active hydrOXYzine HCl (Atarax) 25 MG tablet Take 25 mg by mouth every 6 (six) hours if needed. 01/26/2023 Active isosorbide mononitrate ER (Imdur) 30 MG 24 hr tablet Take 30 mg by mouth in the morning. 06/13/2022 Active metoprolol succinate XL (Toprol-XL) 25 MG 24 hr tablet Take 12.5 mg by mouth in the morning. 02/10/2023 Active rosuvastatin (Crestor) 40 MG tablet Take 40 mg by mouth at bedtime. 02/10/2023 Active tamsulosin (Flomax) 0.4 MG 24 hr capsule Take 0.4 mg by mouth in the morning. 11/25/2022 Active nitroglycerin (Nitrostat) 0.[address] 0.4 mg under the tongue Active psyllium (Metamucil) 58.6 % packet Take 1 packet by mouth in the morning and 1 packet before bedtime. Mix and drink with at least 8 ounces of water or juice.. Active Active Problems Problem Noted Date Diagnosed Date Internal nasal lesion 02/11/2023 DNS (deviated nasal septum) 02/11/2023 Chronic obstructive pulmonary disease 02/10/2023 GERD (gastroesophageal reflux disease) Hypertension 01/30/2023 Alcohol abuse 12/12/2022 Angioedema 12/12/2022 Overview (02/10/2023): Last Assessment & Plan: ED stopped lisinopril r/t angioedema, pt states difficulty swallowing is improved- but states occasionally it feels like something catches. D/W pt to f/U with PCP for symptoms and he may benefit from a GI consult or Swallow study. Anticoagulated 12/12/2022 Antiplatelet or antithrombotic long-term use 08/2022 Anxiety 12/12/2022 Hydronephrosis 12/12/2022 Hyperglycemia 12/12/2022 Hyperlipidemia 12/12/2022 Inguinal hernia 12/12/2022 Porokeratosis 12/12/2022 Benign essential HTN 06/13/2022 Overview (02/10/2023): Last Assessment & Plan: Hypertension is stable Continue lisinopril, toprol and imdur Mixed dyslipidemia 06/13/2022 Overview (02/10/2023): Last Assessment & Plan: Continue crestor Dyspnea on exertion 12/06/2021 BPH with obstruction/lower urinary tract symptom s 07/29/2021 Epistaxis, recurrent 07/25/2021 Calculus of kidney 07/09/2021 Pulmonary emphysema 12/21/2020 Chest pain 09/28/2018 Overview (02/10/2023): Last Assessment & Plan: stable Coronary arteriosclerosis 09/28/2018 Overview (02/10/2023): Last Assessment & Plan: Coronary artery disease is stable Continue GDMT- ASA, plavix, toprol, crestor continue risk factor modifications- heart healthy diet, regular exercise as tolerated and continue all medications. Acid reflux 09/28/2018 Tobacco user 09/28/2018 Overview (02/10/2023): Last Assessment & Plan: 10 min smoking cessation discussion and pt is willing to try wellbutrin to help him quit smoking. Discussed side effects and when to call office Myocardial infarction 11/17/2017 Resolved Problems Problem Noted Date Diagnosed Date Resolved Date History of kidney stones 02/10/202307/2022 Smoker 02/10/2023 02/10/2023 History of myocardial infarction 12/12/2022 02/10/2023 Family History Medical History Relation Name Comments Cirrhosis Father Heart failure Mother Relation Name Status Comments Father Mother Social History Tobacco Use Types Packs/Day Years Used Date Smoking Tobacco: Every Day Cigarettes 1 55.7 Started: 1970 Smokeless Tobacco: Never Tobacco Cessation:Ready to Q [...] Sign Reading Time Taken Comments Blood Pressure 122/77 03/30/2024 9:11 AM EST Pulse - - Temperature - - Respiratory Rate - - Oxygen Saturation - - Inhaled Oxygen Concentration - - Weight 67.1 kg (148 lb) 03/30/2024 9:11 AM EST Height 167.6 cm (5' 6 ) 03/30/2024 9:11 AM EST Body Mass Index 23.89 03/30/2024 9:11 AM EST Plan of Treatment Not on file Insurance [employer] Care Teams Cma Relationship Specialty Start Date End Date Casa Carreno MD PCP - General Family Medicine 01/28/23
--- NOTE | 2025-01-13 11:10 | XR_ITS ---
The [address] [address] Patient Name: RONNELL PERES MRN: [id number] date: 1955 Sex: M Assigned Patient Location: LAB Current Patient Location: LAB Accession/Order Number: [id number] Exam Date: 01/13/2025 11:38 Report Date: 01/13/2025 12:07 At the request of: NELLY WALTERS Procedure: XR abdomen 1V SINGLE VIEW ABDOMEN COMPARISON: 06/25/2021 CLINICAL DATA: Constipation and bloating. Supine views of the abdomen and pelvis were obtained. There is air within the stomach. There is air within nondistended small and large bowel loops. There is a small amount of stool at the cecum. No soft tissue masses or suspect renal calculi are noted. There is subtle dextroscoliotic curvature. XR/XR abdomen 1V IMPRESSION: NO ACUTE FINDINGS OR SIGNIFICANT STOOL BURDEN Impression dictated by: Minerva Adan M.D. 01/13/2025 12:07 PM [facility] Electronically authenticated by: [id number] Y Date: 01/13/2025 12:07
--- OUTSIDE RECORDS SUMMARY | 2025-01-13 11:10 | XMS_ITS | CCD ---
Author Organization [facility] Care Team Providers Care Field Administrative Assistant Name Role Phone CRISTIN, DONN Diana Unavailable Unavailable SELF, REFERRED Unavailable Unavailable RENNO, ANAS Unavailable Unavailable AHMED, ANDREW Unavailable Unavailable [place] Unavailable Unavailable UNKNOWN, PROVIDER Unavailable Unavailable PHYSICIAN, DEFAULT Unavailable Unavailable PHYSICIAN, DEFAULT Unavailable Unavailable SELF, REFERRED Unavailable Unavailable Dylan Zaidi MD Primary Care Provider Dylan Zaidi Primary Care Physician [phone] CAM FORREST Attending Unavailable CAM FORREST Admitting [...] Unavailable Dylan Zaidi MD Primary Care Provider [phone] Dylan Zaidi MD Primary Care Provider [phone] Dylan Zaidi MD Primary Care Provider [phone] MD Aaron Kelsey Attending Provider Nill, Aaron [...] Unavailable Timmis, Portillo H Admitting Unavailable JARAD, AALIYAH A Attending Unavailable TIMMIS, PORTILLO H Referring [...] [lisinopril] Drug Allergy 3 Angioedema, Dysphagia (disorder) [facility] (5 sources) Lisinopril Propensity to adverse reactions 3 Angioedema [facility] [employer] Work Phone: (1 source) No Known Medication Allergies; Translations: [No Known Medication Allergies] Propensity to adverse reactions (disorder) [facility] Repository Medications Current Medications Medication Drug [...] (PYRIDIUM) tablet 200 mg polyethylene glycol 3350 63672 mg powder for oral solution (4 sources) [...] 02-13-2017 take 1 capsule by [facility] once daily tamsulosin (FLOMAX) 0.4 MG capsule [...] disease (20 sources) Atherosclerotic heart disease of [place] coronary artery without angina pectoris; Translations: [History [...] Onset: 09-28-2018 Episodic Other aftercare (1 source) [facility] (current) use of antithrombotics/an tiplatelets; Translations: [SENIOR CARE ANTITHROMBOT/ANTIP LATLETS] Onset: 07-19-2021 Episodic Other aftercare (1 source) 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 (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; Translations: [SENIOR CARE CURRENT USE OF ASPIRIN] Onset: 07-19-2021 Episodic Other aftercare (1 source) 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; Translations: [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 CURRENT DRUG THERAPY] Onset: 06-25-2021 Episodic Other aftercare (5 sources) Drug therapy finding; Translations: [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 (current) use of anticoagulants] Onset: 12-12-2022 02-10-2023 Episodic Other aftercare (2 sources) Patient encounter status; Translations: [[facility] (current) use of antithrombotics/an tiplatelets] Onset: 12-12-2022 02-10-2023 Episodic Other aftercare (3 sources) Long-term current use of drug therapy; Translations: [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 (current) use of antithrombotics/an tiplatelets] Onset: 12-12-2022 [...] Test Name Value Interpretation Reference Range Facility 36on 01-03-2025 36 Michelle Pulliam MD to FRANCISCA aLngston MD (Selected Message) 01/02/25 4:08 PM His stress test was ok. [...] is labs look ok. Patient verbalized understanding Normal [facility] Telephoneon 01-03-2025 Telephone [id number] Ronnell Peres 1955 Date Provider Department Center 01/03/2025 [id number] MACIAS SAVANNAH Donovan Family History Problem Relation Age of Onset Heart attack Mother Family Status - Relation Status Age at Mother Normal [facility] Orders Onlyon 01-02-2025 Orders Only [id number] Ronnell Peres 1955 Date Provider Department Center 01/02/2025 [id number], HISTORICAL SAVANNAH [facility] Family History Problem Relation Age of Onset Heart attack Mother Family Status - Relation Status Age at Mother Normal [facility] Office Visiton 12-19-2024 Follow-up visit [id number] Ronnell Peres 1955 Date Provider Department Center 12/19/2024 Bernabe-MICHELLE PULLIAM SAVANNAH Donovan Family History Problem Relation Age of Onset Heart attack Mother Family Status - Relation Status Age at Mother Level of Service:24780 [place] OFFICE/OUTPATIENT ESTABLISHED MOD MDM 30 MIN Normal [facility] XR ABDOMEN (KUB) (SINGLE AP VIEW)on 08-31-2024 [...] Danette Rodriguez MD 08/31/24 Final result Normal [facility] XR Abdomen Single viewon Unremarkable appeari [...] changes are seen within the hips bilateral PN RIS CONSOLIDATED Danette Rodriguez MD - 08/31/2024 [...] the hips bilateral IMPRESSION: Unremarkable appearing abdomen [employer] XR Abdomen Single viewOrdere d By: Danette Rodriguez on 08-31-2024 [facility]: PSA Screeningon 08-29-2024 Prostate specific Ag [Mass/Vol] 1.8 ng/mL 0.00 - 4.00 ng/mL [facility] Comment on above: The Hari ECLIA as say is used. Results obtained with different assay methods cannot be used interchangeably. [facility] PSA, Screeningon 08-29-2024 Prostatic Spec. Ag 1.80 ng/mL Normal 0.00-4.00 [facility] Comment on above: Result Comment: The Hari ECLIA assay is used. Results obtained with different assay methods cannot be used interchangeably. Performed By: #### P SAS #### [facility] [employer] [place] [address] Ditch Cleaner: Austin Montes MD XR Abdomen Single viewon Radiology Study observation (narrative) [facility] Office Visiton 06-22-2024 Follow-up visit [id number] Cain Peresy Elizabeth 1955 M Date Provider Department Center 06/22/2024 [facility]8CAM FORREST [facility] [place] [facility] Family History Problem Relation Age of Onset Heart attack Mother Family Status - Relation Status Age at Mother Level of Service:16181 [place] OFFICE/OUTPATIENT ESTABLISHED LOW MDM 20 MIN Normal [facility] Ambulatory Visit Summaryon 0 09-23-2023 Ambulatory Visit [...] choosing us for your care. Shira Avila [facility] General Surgery Office/Clini c Noteon 09-23-2023 [...] inactivated - Not Given Patient Refuses Normal [facility] Comment on above: Result Comment: Elec [...] inactivated - Not Given Patient Refuses Normal [facility] Comment on above: Result Comment: Elec [...] PM EDT With: Aaron KELSEY MD Where: [facility] General Surgery [place] Normal [facility] Operative Reporton Operative Report [id number]#1.00TIFF Normal [facility] Pathology Noteon 09-07-2023 Pathology Note [id number]#1.00TIFF Normal [facility] [place] 09-02-2023 L Specimen: [id number] eceived: 09/03/23 Status: ALLAN Francis Num: [id number] Spec Type: Surgical Subm Dr: Aaron Kelsey MD FACS Tissues: A Hernia Sac (INGUINAL HERNIA) Procedures: HE, Gross/Micro L2 Age/ Patient Sex Location Account Attending Physician JaRonnell Elizabeth 68/M LABELL [id number] Aaron Kelsey MD FACS SPEC NUM: [id number] RECD: 09/03/23 STATUS: ALLAN FRANCIS NUM: [id number] AVA: 09/02/23- SUBM DR: Aaron Kelsey MD FACS ENTERED: 09/03/23 [facility] DR: Tosin Rooney SPEC TYPE: Surgical DEPT: JESSICA LOREDO ORDERED: [place] Gross/Micro L2 ORDERED: [place], Gross/Micro L2 Pathological Diagnosis Soft tissue, left [...] specimen reveals unremarkable, slightly hemorrhagic cut surfaces. Tenderizer Tender sections are submitted in A1. Clinical history: Inguinal hernia TW CPT Codes 64486 -- -- Specimen: [id number] Received: 09/03/23 Status: ALLAN Francis Num: [id number] Spec Type: Surgical Subm Dr: Aaron Kelsey MD FACS Tissues: A Hernia Sac (INGUINAL HERNIA) Procedures: Titus GLEZ/Micro L2 -- Patient: Ronnell Peres [id number] (Continued) -- Signed (signature on file) Casimiro-Vahe Ashraf MD 09/07/23813 Normal [facility] Insurance Correspondenceon 0 08-21-2023 Insurance Correspondence [id number]#1.00TIFF Normal [facility] RAD - MISCon 08-21-2023 RAD - MIS [id number]#1.00TIFF Normal [facility] RAD - MISCon 08-20-2023 RAD - MIS [id number]#1.00TIFF Normal [facility] Consent for Procedure/Surger yon 07-21-2023 Consent for Procedure/Surgery [id number]#1.00TIFF [facility] Ambulatory Visit Summaryon 0 07-17-2023 Ambulatory Visit Summary RONNELL PERES Elizabeth :1955 Visit Date:07/17/2023 Ambulatory Visit Instructions Your [...] choosing us for your care. Shira Avila [facility] General Surgery Office/Clini c Noteon 07-17-2023 [...] sleep Allergies lisinopri (more content not included)... [facility] Comment on above: Result Comment: Elec tronically Signed By: LOW AVILA, Aaron Draper.massimo\Date and Time Signed: 07/17/23 18:57 EST [employer] 07-13-2023 Forms [id number]#1.00TIFF [facility] IntraOperative Documentson IntraOperative Documents [id number]#1.00TIFF [facility] Consent for Anesthesiaon Consent for Anesthesia [id number]#1.00TIFF [facility] Discharge Instructionson Discharge Instructions [id number]#1.00TIFF [facility] IntraOperative Documentson IntraOperative Documents [id number]#1.00TIFF [facility] Physician Orderon 02-20-2023 Physician Order [id number]#1.00TIFF [facility] Preoperative Documentson Preoperative Documents [id number]#1.00TIFF [facility] Progress Note-Physicianon Progress Note-Physician Patient: RONNELL PERES Age: 68 years Sex: Male : 1955 Associated Diagnoses: None Author: MD De La Vega Ahmad F Postoperative Information Postoperative disposition: Postoperative disposition: To PACU. Optimetrix number: Optimetrix number [id number]. Anesthetic utilized: General. Health Status Allergies: Allergic [...] when meets criteria ( To home ). [facility] Comment on above: Result Comment: Elec [...] Daily, # 30 cap(s), Refills(s) 3, Pharmacy: [facility], 168, cm, 06/26/21 9:30:00 EST, Height/Length [...] History of kidney stones / SNOMED CT 4417500620 / Confirmed Chronic obstructive pulmonary disease / SNOMED CT 54792692 / Confirmed History of myocardial infarction / SNOMED CT 9130563570 / Confirmed Hyperlipidemia / SNOMED CT 66250185 / Confirmed Hypertension / SNOMED CT 1405885918 / Confirmed Kidney stone / SNOMED CT 898453716 / Confirmed BPH with urinary obstruction / SNOMED CT 4303781213 / Confirmed Ureteral stone with hydronephrosis / SNOMED CT 27967045 / Confirmed Anticoagulated / SNOMED CT 484353506 / Confirmed GERD (gastroesophageal reflux disease) / SNOMED CT 069095201 / Confirmed Smoker / SNOMED CT 617367181 / Confirmed Alcohol abuse / SNOMED CT 46040466 / Confirmed BMI 22.0-22.9, adult / SNOMED CT 2723568203 / Confirmed Reducible left inguinal hernia / SNOMED CT 303986500 / Confirmed Antiplatelet or antithrombotic long-term use / SNOMED CT 595228789 / Confirmed Tobacco use / SNOMED CT 459391656 / Confirmed Resolved: Anxiety / SNOMED CT 49031499 Histories Past Medical History: Resolved Anxiety (27167342): Resolved. Family History: Primary malignant neoplasm of lung Grandparent Stroke Mother Cirrhosis of liver Father Aneurysm Mother Procedure history: Right Nasal cautery (985951630) on 02/19/2023 at 68 Years. Cystoscopic removal of ureteric stent (094310922) on 03/05/2017 at 62 Years. Cystoscope/stone extraction/Rt. stent replacement (25197666) on 02/23/2017 at 62 Years. Cystoscope/RG/ureteroscopy/Rt. stent placement (54095301) on 02/16/2017 at 62 Years. Placement of stent in cardiac conduit (9509488628). Lithotripsy (534933199). Insertion of renal artery stent (1002649812). Nasal cautery (135206441). Social History Social & Psychosocial Habits Alcohol [...] results Radiology results ECG interpretation Condition Plan [place] [employer] Anesthesiologists (ASA) physical status classification: Class III. Anesthetic Preoperative Plan Anesthesia: General. . Anesthetic plan, risks, benefits, and alternatives discussed with the patient and/or family. Risks discussed: nausea, vomiting, headache, sore throat, dental injury, serious complications. Patient verbalized understanding. Communication: face to face with patient 5 minutes. [facility] Comment on above: Result Comment: Elec tronically Signed By: MD Ceferino, Jossie Lu\.massimo\Date and Time Signed: 02/20/23 14:56 EDT Consent for Procedure/Surger yon 02-19-2023 Consent for Procedure/Surgery [id number]#1.00TIFF [facility] Consent for Treatmenton 02-08 Consent for Treatment [id number]#1.00TIFF [facility] Discharge Instructionson Discharge Instructions RONNELL PERES :1955 [...] completing your survey. Thank you for choosing [facility]. Patient Portal You may access all of your results and other medical record information on our secure patient portal. If you are not signed up for this yet, please contact [employer] at [phone] to get signed up today. Patient Name: RONNELL PERES I have received this information and my questions have been answered. Patient/Tenderizer Tender Name: Patient/Tenderizer Tender Signature: __ (more content not included)... Normal [facility] Comment on above: Result Comment: Elec tronically Signed By: Jeramie HADLEY, Christian Dhaliwal\.br\Date and Time Signed: 02/19/23 13:08 EDT H&P Updateon 02-19-2023 H&P Update [id number]#1.00TIFF Normal [facility] Inpatient Patient Summaryon 02-19-2023 Inpatient Patient Summary [address] [id number] [facility] Clinical Discharge Instructions PERSON INFORMATION Name: [...] Mouth 2 times a day. Comment: Normal [facility] Main OR Intraoperative Recor don 02-19-2023 Main OR Intraoperative Record IntraOp Document Type FT Summary Primary Physician: Portillo Ludwig MD Finalized Date/Time: 02/19/23 13:57:10 Pt. Name: RONNELL PERES /Sex: 1955 Male Med Rec #: [id number] Physician: Portillo Ludwig MD Financial #: [id number] Pt. Type: A Room/Bed: [place] [address] Admit/Disch: 02/19/23 08:47:56 - 02/19/23 13:45:00 Institution: [...] 2 Entry 3 Case Attendee Orlando NAPOLES, JOURNEYMAN APPRENTICE [employer]IANS, Queen Marin AVILA, Gagan Kline Role Performed JOURNEYMAN [employer]ENTICE [employer] Surgeon - Primary Front End Architect - Primary Time In 02/19/23 11:29:00 02/19/23 11:41:00 02/19/23 11:29:00 Time Out 02/19/23 11:58:00 02/19/23 11:50:00 02/19/23 11:58:00 Procedure NASAL ENDOSCOPY(Right) NASAL ENDOSCOPY(Right) NASAL ENDOSCOPY(Right) Comments ,CEFERINO ANESTHESIA CLINICAL EDITOR Last Modified By: Ivet CURTAIN DRIER, Evelina Monzon RN, Andrew Hurst RN 02/19/23 13:54:59 02/19/23 12:09:31 02/19/23 12:09:31 Entry 4 Entry 5 Entry 6 Case Attendee Zonia Ribera CURTAIN DRIER, Justice Monzon RN, Andrew Velasco Role Performed Scrub - Primary Scrub - Relief Front End Architect - Primary Time In 02/19/23 11:29:00 02/19/23 [...] and tissue Entry 1 Skin Integrity Intact, [place], Warm, and Skin Abnormality No Dry Outcomes [...] Procedure [employer] (more content not included)... Normal [facility] Main OR PACU I Recordon 02-08 Main OR PACU I Record PACU Phase I Document Type FT Summary Primary Physician: Portillo Ludwig MD Finalized Date/Time: 02/19/23 12:35:40 Pt. Name: RONNELL PERES Elizabeth Shafer./Sex: 1955 Male Med Rec #: [id number] Physician: Portillo Ludwig MD Financial #: [id number] Pt. Type: A Room/Bed: [place] [address] Admit/Disch: 02/19/23 08:47:56 - Institution: Case Times [...] By: Sherry Brady RN 02/19/23 12:35 Normal [facility] Main OR PACU II Recordon Main OR PACU II Record PACU Phase II Document Type FT Summary Primary Physician: Portillo Ludwig MD Finalized Date/Time: 02/19/23 13:43:43 Pt. Name: RONNELL PERES/Sex: 1955 Male Med Rec #: [id number] Physician: Portillo Ludwig MD Financial #: [id number] Pt. Type: A Room/Bed: [place] [address] Admit/Disch: 02/19/23 08:47:56 - Institution: Case Times [...] By: Christian Bobo RN 02/19/23 13:43 Normal [facility] Monitor Recordon 02-19-2023 Monitor Record [id number]#1.00TIFF Normal [facility] Operative Reporton Operative Report SURGERY DATE: [...] condition. Portillo Ludwig Jr., M.D. Dictated: 02/19/2023 [id number] Transcribed: 02/19/2023 cc:Dylan Zaidi M.D. [facility] Comment on above: Result Comment: Elec tronically Signed By: Portillo Ludwig MD\.br\Date and Time Signed: 02/19/23 15:00 EDT Outpatient Surgery Discharge Instructionon 02-19-2023 Outpatient Surgery Discharge Instruction [address] [address] Patient Discharge Instructions PERSON INFORMATION [...] THE NEAREST EMERGENCY ROOM OR CALL 911 Anjali JA RONNELL A, have received the attached patient education materials/instructions and have verbalized understanding: May we do a follow up call? Yes No I was present when discharge instructions were given Patient Signature Date Clinican/Nurse Signature Date Follow up: With: Address: When: Portillo Ludwig Comments: As needed Pharmacy Information: You may receive a survey from [employer] asking you to rate your care experience. Your feedback is important and will help us understand what we do well and how we can improve the quality of care we provide to you, your loved ones and our community. It?s an honor to serve you. Thank you for choosing [facility] HERE ARE THE MEDICATION CHANGES THAT OCCURRED [...] PATIENT EDUCATION INFORMATION Instructions: Medication Leaflets: Normal [facility] Patient Education - Texton 1 Patient Education - Text Normal [facility] XR Chest 2 Viewson 3 XR [...] mGy = na DAP = na Normal [facility] Auto Diffon 02-17-2023 Basophils/100 WBC (Bld) 1.0 % Normal 0.0-2.0 [facility] Comment on above: Order Comment: Order Added by Discern Expert. Performed By: #### 2 [id number], [id number] #### [facility] [address] [place] [address] Basophils/Leukocy keegan Auto (Bld) [Pure # fraction] 0.1 E9/L Normal 0.0-0.2 [facility] Comment on above: Order Comment: Order Added by Discern Expert. Performed By: #### 2 617768, [id number] #### [facility] [address] [place] [address] Eosinophils/100 WBC (Bld) 1.4 % Normal 0.0-8.0 [facility] Comment on above: Order Comment: Order Added by Discern Expert. Performed By: #### 2 090888, [id number] #### [facility] [address] [place] [address] Eosinophils/Leuko cytes Auto (Bld) [Pure # fraction] 0.1 E9/L Normal 0.0-0.5 [facility] Comment on above: Order Comment: Order Added by Discern Expert. Performed By: #### 2 548439, [id number] #### [facility] [address] [place] [address] Lymphocytes/100 WBC (Bld) 25.0 % Normal 14.0-50.0 [facility] Comment on above: Order Comment: Order Added by Discern Expert. Performed By: #### 2 411883, [id number] #### [facility] [address] [place] [address] Lymphocytes/Leuko cytes Auto (Bld) [Pure # fraction] 1.8 E9/L Normal 1.0-4.0 [facility] Comment on above: Order Comment: Order Added by Discern Expert. Performed By: #### 2 911842, 8794151 #### [facility] [address] [place] [address] Monocytes/100 WBC (Bld) 5.5 % Normal 4.0-14.0 [facility] Comment on above: Order Comment: Order Added by Discern Expert. Performed By: #### 2 234079, [id number] #### [facility] [address] [place] [address] Monocytes/Leukocy keegan Auto (Bld) [Pure # fraction] 0.4 E9/L Normal 0.2-1.0 [facility] Comment on above: Order Comment: Order Added by Discern Expert. Performed By: #### 2 116350, [id number] #### [facility] [address] [place] [address] Neutrophils/100 WBC (Bld) 67.1 % Normal 36.0-75.0 [facility] Comment on above: Order Comment: Order Added by Discern Expert. Performed By: #### 2 855771, 5373467 #### [facility] [address] [place] [address] Neutrophils/Leuko cytes Auto (Bld) [Pure # fraction] 4.8 E9/L Normal 2.0-7.5 [facility] Comment on above: Order Comment: Order Added by Discern Expert. Performed By: #### 2 466536, 7098447 #### [facility] [address] [place] [address] BUNon 02-17-2023 Urea nitrogen [Mass/Vol] 16 mg/dL Normal 5-21 [facility] Comment on above: Performed By: #### 1 [id number], 8277122, 9006559, 6069903, 2221664 ####[facility] [address] [place] [address] CBC w/ Auto Diffon Erythrocyte distribution width (RBC) [Ratio] 13.4 % Normal 10.9-14.2 [facility] Comment on above: Performed By: #### 2 052067, 7820710 #### [facility] [address] [place] [address] Hematocrit (Bld) [Volume fraction] 39.3 % Normal 37.7-49.0 [facility] Comment on above: Performed By: #### 2 682815, 4511067 #### [facility] [address] [place] [address] Hemoglobin (Bld) [Mass/Vol] 13.7 g/dL Normal 13.5-17.5 [facility] Comment on above: Performed By: #### 2 261587, 6372419 #### [facility] [address] [place] [address] MCH (RBC) [Entitic mass] 29.2 pg Normal 27.0-34.0 [facility] Comment on above: Performed By: #### 2 957359, 2376664 #### [facility] [address] [place] [address] MCHC (RBC) [Mass/Vol] 34.7 g/dL Normal 31.4-36.0 [facility] Comment on above: Performed By: #### 2 921240, 9440832 #### [facility] [address] [place] [address] MCV (RBC) [Entitic vol] 84.1 fL Normal 80.0-100.0 [facility] Comment on above: Performed By: #### 2 202696, 1218161 #### [facility] [address] [place] [address] Platelet mean volume (Bld) [Entitic vol] 8.4 fL Normal 6.4-10.8 [facility] Comment on above: Performed By: #### 2 840517, 9028449 #### [facility] [address] [place] [address] Platelets (Bld) [#/Vol] 257.0 E9/L Normal 150.0-500. 0 [facility] Comment on above: Performed By: #### 2 971721, 2858676 #### [facility] [address] [place] [address] RBC (Bld) [#/Vol] 4.7 E12/L Normal 4.3-5.9 [facility] Comment on above: Performed By: #### 2 345833, 9657705 #### [facility] [address] [place] [address] WBC corrected for nucl RBC Auto (Bld) [#/Vol] 7.2 E9/L Normal 4.0-11.0 [facility] Comment on above: Performed By: #### 2 897604, 2487195 #### [facility] [address] [place] [address] CHEMISTRYOrdered By: SYSTEM SYSTEM on 02-17-2023 Anion gap [Moles/Vol] 10 mmol/L Normal 6 - 16 mEq/L [facility] Remisol Chloride [Moles/Vol] 112 mmol/L High 101 - 111 mmol/L [facility] Remisol CO2 [Moles/Vol] 24 mmol/L Normal 21 - 31 mmol/L [facility] Remisol Creatinine [Mass/Vol] 0.8 mg/dL Normal 0.5 - 1.3 mg/dL [facility] Remisol GFR/1.73 sq M.predicted among non-blacks MDRD (S/P/Bld) [Vol rate/Area] 96 mL/min/1.73 m2 Normal >=59mL/min /1.73 m2 [facility] Chem S Comment on above: Interpretive Data: C hronic kidney disease could be indicated at eGFR's of less than 60 mL/min/1.73m2. Kidney failure is indicated at less than 15 mL/min/1.73m2. Glucose [Mass/Vol] 129 mg/dL Normal 55 - 199 mg/dL [facility] Remisol Potassium [Moles/Vol] 3.9 mmol/L Normal 3.5 - 5.3 mmol/L [facility] Remisol Sodium [Moles/Vol] 142 mmol/L Normal 135 - 145 mmol/L [facility] Remisol Urea nitrogen [Mass/Vol] 16 mg/dL Normal 5 - 21 mg/dL [facility] Remisol Consent for Treatmenton 02-08 Consent for Treatment [id number] Normal [facility] Creatinineon 02-17-2023 Creatinine [Mass/Vol] 0.8 mg/dL Normal 0.5-1.3 [facility] Comment on above: Performed By: #### 1 [id number], [id number], [id number], [id number], [id number] ####[facility] [address] [place] [address] Glucoseon 02-17-2023 Glucose [Mass/Vol] 129 mg/dL Normal 55-199 [facility] Comment on above: Performed By: #### 1 [id number], [id number], [id number], [id number], [id number] ####[facility] [address] [place] [address] Lyteson 10-10-2023 Anion gap [Moles/Vol] 10 mmol/L Normal 6-16 [facility] Comment on above: Performed By: #### 1 [id number], [id number], [id number], 6544306, [id number] ####[facility] [address] [place] [address] Chloride [Moles/Vol] 112 mmol/L High 101-111 [facility] Comment on above: Performed By: #### 1 [id number], [id number], 1588236, [id number], [id number] ####[facility] [address] [place] [address] CO2 [Moles/Vol] 24 mmol/L Normal 21-31 [facility] Comment on above: Performed By: #### 1 [id number], [id number], 0197451, 7677746, 5356481 ####[facility] [address] [place] [address] Potassium [Moles/Vol] 3.9 mmol/L Normal 3.5-5.3 [facility] Comment on above: Performed By: #### 1 [id number], 5348144, 3114131, 8243541, 5617037 ####[facility] [address] [place] [address] Sodium [Moles/Vol] 142 mmol/L Normal 135-145 [facility] Comment on above: Performed By: #### 1 [id number], 6987174, 3246219, 4884098, 6849969 ####[facility] [address] [place] [address] eGFRon 02-17-2023 GFR/1.73 sq M.predicted among non-blacks MDRD (S/P/Bld) [Vol rate/Area] 96 mL/min/1.73 m2 Normal >=59 [facility] Comment on above: Order Comment: Order added by Discern Expert. Result Comment: [employer] blanka kidney disease could be indicated at eGFR's of less than 60 mL/min/1.73m2. Kidney failure is indicated at less than 15 mL/min/1.73m2. Performed By: #### 1 [id number], 6729232, 1845073, 1619978, 9745858 ####[facility] [address] [place] [id number] CBC with Auto Differentialon 01-25-2023 Basophils (Bld) [#/Vol] 0.03 10*3/uL [facility] Basophils/100 WBC (Bld) 0 % 0 - 2 % [facility] Eosinophils (Bld) [#/Vol] 0.04 10*3/uL [facility] Eosinophils/100 WBC (Bld) 1 % [...] WBC (Bld) 0 % 0 [facility] Interpretation and review of laboratory results Abnormal [facility] Lymphocytes/100 WBC (Bld) 21 % Low 24 - 43 % [facility] Lymphocytes/100 WBC (Bld) 1.64 % [facility] MCH (RBC) [Entitic mass] 29.2 pg 25.2 - 33.5 pg [facility] MCHC (RBC) [Mass/Vol] 34.8 g/dL 28.4 - 34.8 g/dL [facility] MCV (RBC) [Entitic vol] 83.9 fL 82.6 - 102.9 fL [facility] Monocytes/100 WBC (Bld) 6 % 3 - 12 % [facility] Monocytes/100 WBC (Bld) 0.50 % [facility] Neutrophils/100 WBC (Bld) 72 % High 36 - 65 % [facility] Nucleated RBC/100 WBC (Bld) [Ratio] 0.0 % 0.0 per 100 WBC [facility] Platelet mean volume (Bld) [Entitic vol] 9.7 fL 8.1 - 13.5 fL [facility] Platelets (Bld) [#/Vol] 276 10*3/uL [facility] RBC (Bld) [#/Vol] 5.21 10*6/uL 4.21 - 5.77 m/uL [facility] Segmented neutrophils/100 WBC (Bld) 5.71 % [facility] WBC other (Bld) [#/Vol] 7.9 [facility] CMPon 01-25-2023 Albumin [Mass/Vol] 5.0 g/dL 3.5 - 5.2 g/dL [facility] Albumin/Globulin [Mass ratio] 1.9 {ratio} 1.0 - 2.5 [facility] ALP [Catalytic activity/Vol] 74 U/L 40 - 129 U/L [facility] ALT [Catalytic activity/Vol] 31 U/L 5 - 41 U/L [facility] Anion gap [Moles/Vol] 11 mmol/L 9 - 17 mmol/L [facility] AST [Catalytic activity/Vol] 26 U/L NINF - 40 U/L [facility] Bilirubin [Mass/Vol] 0.5 mg/dL 0.3 - 1.2 mg/dL [facility] Calcium [Mass/Vol] 9.7 mg/dL 8.6 - 10.4 mg/dL [facility] Chloride [Moles/Vol] 102 mmol/L 98 - 107 mmol/L [facility] CO2 [Moles/Vol] 23 mmol/L 20 - 31 mmol/L [facility] Creatinine [Mass/Vol] 0.6 mg/dL Low 0.7 - 1.2 mg/dL [facility] GFR/1.73 sq M.predicted MDRD (S/P/Bld) [Vol rate/Area] - PINF [facility] Comment on above: These results are [...] 108 mg/dL High 70 - 99 mg/dL [facility] Interpretation and review of laboratory results Abnormal [facility] Potassium [Moles/Vol] 4.0 mmol/L 3.7 - 5.3 mmol/L [facility] Protein [Mass/Vol] 7.7 g/dL 6.4 - 8.3 g/dL [facility] Sodium [Moles/Vol] 136 mmol/L 135 - 144 mmol/L [facility] Urea nitrogen [Mass/Vol] 14 mg/dL 8 - 23 mg/dL [facility] Urea nitrogen/Creatini ne [Mass ratio] 23 mg/mg High - [facility] Protime-INRon 01-25-2023 INR Coag (PPP) [Relative time] 0.9 {INR} [facility] Comment on above: Therapeutic Range: Moderate Anticoagulant Intensity: INR = 2.0-3.0 High Anticoagulant Intensity: INR = 2.5-3.5 PT Coag (PPP) [Time] 12.5 s [facility] Troponinon 01-25-2023 Troponin I.cardiac High sensitivity method [Mass/Vol] 11 ng/L 0 - 22 ng/L [facility] Comment on above: High Sensitivity Tro ponin values cannot be compared with other Troponin methodologies. [facility] XR CHEST PORTABLEon 01-26-20 23 No [...] No radiographic evidence of acute pulmonary disease. [facility] Study observation (narrative) [facility] XR CHEST PORTABLEOrdered By: Jackson Nichole on 01-25-2023 [facility] Work Phone: General Surgery Office/Clini c Noteon [...] 2. 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 Normal [facility] Comment on above: Result Comment: Elec [...] longer receiving treatment for. Anxiety Normal [facility] ECHOCARDIO M/2D COMPLETEon 0 12-18-2021 ECHOCARDIO M/2D COMPLETE Patient: RONNELL PERES Jayson Exam Date: 12/18/2021 : 1955 Gender:M Ordering : CAM FORREST Admission #: [id number] Family : DYLAN GOMESMellisa . Order #: [id number] CLICK HERE TO VIEW EXAM ECHOCARDIOGRAM REPORT [...] M.D. on 12/18/2021 at 20:12 Normal [facility] NM STRESS/REST MULTIon 12-16 NM STRESS/REST MULTI Patient: RONNELL PERES Exam Date: 12/16/2021 : 1955 Gender:M Ordering : CAM FORREST Admission #: [id number] Family : Order #: [id number] CLICK HERE TO VIEW EXAM RADIOLOGY REPORT [...] MD on 12/17/2021 at 11:40 Normal [facility] XR ABDOMEN (KUB) (SINGLE AP VIEW)on 08-20-2021 [...] or ureteral stones. No acute osseous abnormality. [facility] Romario Fong, DO - 08/20/2021 EXAMINATION: ONE SUPINE XRAY VIEW(S) OF THE ABDOMEN 08/20/2021 8:27 am COMPARISON: None. HISTORY: ORDERING SYSTEM PROVIDED HISTORY: Ureteral stone FINDINGS: Bowel gas pattern nonobstructed. Renal shadows partially obscured by bowel gas and fecal debris. No definite renal or ureteral stones. No acute osseous abnormality. IMPRESSION: Nonobstructive bowel gas pattern. No definite renal or ureteral stones. [facility] Work Phone: Radiology Study observation (narrative) [employer] Phone: XR ABDOMEN (KUB) (SINGLE AP VIEW)Ordered By: Romario Fong on 08-20-2021 [employer] Phone: Basic Metabolic Panelon - Anion gap [Moles/Vol] 10 mmol/L 9 - 17 mmol/L [facility] Calcium [Mass/Vol] 9.8 mg/dL 8.6 - 10.4 mg/dL [facility] Chloride [Moles/Vol] 104 mmol/L 98 - 107 mmol/L [facility] CO2 [Moles/Vol] 25 mmol/L 20 - 31 mmol/L [facility] Creatinine [Mass/Vol] 0.68 mg/dL Low 0.70 - 1.20 mg/dL [facility] GFR >60 >60 mL/min [facility] GFR Non- >60 >60 mL/min [facility] Glucose [Mass/Vol] 95 mg/dL 70 - 99 mg/dL [facility] Interpretation and review of laboratory results Abnormal [facility] Potassium [Moles/Vol] 4.1 mmol/L 3.7 - 5.3 mmol/L [facility] Sodium [Moles/Vol] 139 mmol/L 135 - 144 mmol/L [facility] Urea nitrogen (BldV) [Mass/Vol] 14 mg/dL 8 - 23 mg/dL [facility] Urea nitrogen/Creatini ne (Bld) [Mass ratio] [address] ABDOMEN PELVIS WO CONTRAS T Additional Contrast? Noneon 03-21-2022 1. Interval resoluti on of mild left hydronephrosis and renal pelvis dilatation. 2. Decreased stone load in the left kidney now showing only a punctate calculus in the lower pole several new calculi in the urinary bladder are presumed recently passed from the left kidney. 3. Redemonstration of left-sided bladder diverticulum containing a small calculus. [facility] EXAMINATION: CT OF THE ABDOMEN AND [...] inguinal hernia unchanged. No acute bony abnormality. [facility] Jose Espinoza MD - 07/29/2021 EXAMINATION: [...] left-sided bladder diverticulum containing a small calculus. [employer] Phone: Radiology Study observation (narrative) [employer] Phone: CT ABDOMEN PELVIS WO CONTRAS T Additional Contrast? NoneOrdered By: Jose Espinoza on 07-29-2021 [employer] Phone: Laboratory - Chemistry and C hemistry - challengeon 07-29-2021 GFR/1.73 sq M.predicted MDRD (S/P/Bld) [Vol rate/Area] [facility] Comment on above: Average GFR for 60-6 9 years old: 85 mL/min/1.73sq m Chronic Kidney Disease: <60 mL/min/1.73sq m Kidney failure: <15 mL/min/1.73sq m eGFR calculated using average adult body mass. Additional eGFR calculator available at: http://www.BandApp.Trovix/multiple_crcl_2012.htm Stage 1: Some kidney damage normal GFR Stage 2: Mild kidney damage GFR 60-89 Stage 3: Moderate kidney damage GFR 30-59 Stage 4: Severe kidney damage GFR 15-29 Stage 5: Severe kidney damage GFR <15 ESRD - chronic treatment by dialysis or transplant CBC AUTO DIFFon 07-18-2021 BASO # 0.0 103/ul Normal 0.0-0.1 [facility] Comment on above: Performed By: #### B ERIC PAULSON #### [facility] [address] [place] [address] Dr. Wesley Ashraf Basophils/100 WBC (Bld) 0.6 % Normal 0.2-2.0 [facility] Comment on above: Performed By: #### ERIC Cannon MP #### [facility] [address] [place] [address] Dr. Wesley Ashraf EO # 0.2 103/ul Normal 0.0-0.7 [facility] Comment on above: Performed By: #### ERIC Cannon MP #### [facility] [address] [place] [address] Dr. Wesley Ashraf Eosinophils/100 WBC (Bld) 2.5 % Normal 0.9-7.0 [facility] Comment on above: Performed By: #### B ERIC PAULSON #### [facility] [address] [place] [address] Dr. Wesley Ashraf Erythrocyte distribution width (RBC) [Ratio] 12.2 % Normal 11.0-15.0 [facility] Comment on above: Performed By: #### ERIC Cannon MP #### [facility] [address] [place] [address] Dr. Wesley Ashraf Hematocrit (Bld) [Volume fraction] 41.1 % Critically low 42.0-54.0 [facility] Comment on above: Performed By: #### ERIC Cannon MP #### [facility] [address] [place] [address] [address] Wesley Ashraf Hemoglobin (Bld) [Mass/Vol] 14.3 g/dL Normal 14.0-18.0 [facility] Comment on above: Performed By: #### B MP, CMADM #### [facility] [address] [place] [address] Dr. Wesley Ashraf IG # 0.02 10e3/ul Normal 0.00-0.03 [facility] Comment on above: Performed By: #### B MP, CMADM #### [facility] [address] [place] [address] Dr. Wesley Ashraf IG % 0.3 % Normal 0.0-0.5 [facility] Comment on above: Performed By: #### B MP, CMADM #### [facility] [address] [place] [address] Dr. Wesley Ashraf LYMPH # 1.4 103/ul Normal 1.2-3.8 [facility] Comment on above: Performed By: #### B MP, CMADM #### [facility] [address] [place] [address] Dr. Wesley Ashraf Lymphocytes/100 WBC (Bld) 21.5 % Normal 20.5-60.0 [facility] Comment on above: Performed By: #### B MP, CMADM #### [facility] [address] [place] [address] Dr. Wesley Ashraf MANUAL DIFF REQ NO Normal [facility] Comment on above: Performed By: #### B MP, CMADM #### [facility] [address] [place] [address] Dr. Wesley Ashraf MCH (RBC) [Entitic mass] 28.9 pg Normal 25.9-34.0 [facility] Comment on above: Performed By: #### B MP, CMADM #### [facility] [address] [place] [address] Dr. Wesley Ashraf MCHC (RBC) [Mass/Vol] 34.8 g/dL Normal 29.9-35.2 [facility] Comment on above: Performed By: #### B MP, CMADM #### [facility] [address] [place] [address] [address] Wesley Ashraf MCV (RBC) [Entitic vol] 83.2 fL Normal 80.0-94.0 [facility] Comment on above: Performed By: #### B MP, CMADM #### [facility] [address] [place] [address] [address] Wesley Ashraf MONO # 0.5 103/ul Normal 0.3-0.8 [facility] Comment on above: Performed By: #### B MP, CMADM #### [facility] [address] [place] [address] [address] Wesley Ashraf Monocytes/100 WBC (Bld) 7.8 % Normal 1.7-12.0 [facility] Comment on above: Performed By: #### B MP, CMADM #### [facility] [address] [place] [address] Dr. Wesley Ashraf NEUT # 4.2 103/ul Normal 1.4-6.5 [facility] Comment on above: Performed By: #### B MP, CMADM #### [facility] [address] [place] [address] [address] Wesley Ashraf Neutrophils/100 WBC (Bld) 67.3 % Normal 43.0-75.0 [facility] Comment on above: Performed By: #### B MP, CMADM #### [facility] [address] [place] [address] Dr. Wesley Ashraf Platelet mean volume (Bld) [Entitic vol] 9.6 fL Normal 9.5-13.5 [facility] Comment on above: Performed By: #### B MP, CMADM #### [facility] [address] [place] [address] Dr. Wesley Ashraf PLT 374 103/ul Normal 150-450 [facility] Comment on above: Performed By: #### B MP, CMADM #### [facility] [address] [place] [address] Dr. Wesley Ashraf RBC 4.94 106/ul Normal 4.70-6.10 [facility] Comment on above: Performed By: #### B KHURRAM, ERIC #### [facility] [address] [place] [address] Dr. Wesley Ashraf WBC 6.3 103/ul Normal 4.0-11.0 [facility] Comment on above: Performed By: #### B KHURRAM, ERIC #### [facility] [address] [place] [address] Dr. Wesley Ashraf PROF 14(COMP METB)on 022 Albumin [Mass/Vol] 3.7 g/dL Normal 3.5-5.0 [facility] Comment on above: Performed By: #### C MP #### [facility] [address] [place] [address] Dr. Wesley Ashraf Albumin/Globulin [Mass ratio] 0.9 {ratio} Normal [facility] Comment on above: Performed By: #### C MP #### [facility] [address] [place] [address] Dr. Wesley Ashraf ALP [Catalytic activity/Vol] 89 U/L Normal 38-126 [facility] Comment on above: Performed By: #### C MP #### [facility] [address] [place] [address] Dr. Wesley Ashraf ALT [Catalytic activity/Vol] 86 U/L Critically high 21-72 [facility] Comment on above: Performed By: #### C MP #### [facility] [address] [place] [address] Dr. Wesley Ashraf Anion gap [Moles/Vol] 14.7 mmol/L Normal [facility] Comment on above: Performed By: #### C MP #### [facility] [address] [place] [address] Dr. Wesley Ashraf AST [Catalytic activity/Vol] 40 U/L Normal 17-59 [facility] Comment on above: Performed By: #### C MP #### [facility] [address] [place] [address] Dr. Wesley Ashraf Bilirubin [Mass/Vol] 0.3 mg/dL Normal 0.2-1.3 [facility] Comment on above: Performed By: #### C MP #### [facility] [address] [address] [address] Wesley Ashraf Calcium [Mass/Vol] 9.5 mg/dL Normal 8.4-10.2 [facility] Comment on above: Performed By: #### C MP #### [facility] [address] [address] [address] Wesley Ashraf Chloride [Moles/Vol] 99 mmol/L Normal 98-107 [facility] Comment on above: Performed By: #### C MP #### [facility] [address] [address] [address] Wesley Ashraf CO2 [Moles/Vol] 21.8 mmol/L Critically low 22.0-30.0 [facility] Comment on above: Performed By: #### C MP #### [facility] [address] [address] [address] Wesley Ashraf Creatinine [Mass/Vol] 1.45 mg/dL Critically high 0.66-1.25 [facility] Comment on above: Performed By: #### C MP #### [facility] [address] [address] [address] Wesley Ashraf EGFR-AF [place] 59 mL/min/1.73m2 Critically low >=60 [facility] Comment on above: Performed By: #### C MP #### [facility] [address] [address] [address] Wesley Ashraf EGFR-NON AF [place] 49 mL/min/1.73m2 Critically low >=60 [facility] Comment on above: Performed By: #### C MP #### [facility] [address] [address] [address] Wesley Ashraf Globulin (S) [Mass/Vol] 4.1 g/dL Normal [facility] Comment on above: Performed By: #### C MP #### [facility] [address] [address] [address] Wesley Ashraf Glucose [Mass/Vol] 165 mg/dL Critically high 74-106 [facility] Comment on above: Performed By: #### C MP #### [facility] [address] [address] [address] Wesley Ashraf Potassium [Moles/Vol] 4.5 mmol/L Normal 3.4-5.0 [facility] Comment on above: Performed By: #### C MP #### [facility] [address] [address] [address] Wesley Ashraf Protein [Mass/Vol] 7.8 g/dL Normal 6.1-8.2 [facility] Comment on above: Performed By: #### C MP #### [facility] [address] [address] [address] Wesley Ashraf Sodium [Moles/Vol] 131 mmol/L Critically low 137-145 [facility] Comment on above: Performed By: #### C MP #### [facility] [address] [place] [address] Dr. Wesley Ashraf Urea nitrogen [Mass/Vol] 33.0 mg/dL Critically high 9.0-20.0 [facility] Comment on above: Performed By: #### C MP #### [facility] [address] [address] [address] Wesley Ashraf Urea nitrogen/Creatini ne [Mass ratio] 22.8 mg/mg Normal [facility] Comment on above: Performed By: #### C MP #### [facility] [address] [place] [address] Dr. Wesley Ashraf PROTIMEon 07-18-2021 INR Coag (PPP) [Relative time] 1.01 {INR} Normal [facility] Comment on above: Performed By: #### C BC #### [facility] [address] [address] [address] Wesley Ashraf INR GUIDELINES SEE BELOW Normal [facility] Comment on above: Result Comment: LILI RED INR: 2.0 - 3.0 CONDITIONS NOT LISTED BELOW 2.5 - 3.5 FOR PROSTHETIC HEART VALVE REPLACEMENT 2.5 - 3.5 RECURRENT THROMBOSIS Performed By: #### C BC #### [facility] [address] [place] [address] Dr. Wesley Ashraf PT Coag (PPP) [Time] 10.9 s Normal 9.0-11.6 [facility] Comment on above: Performed By: #### C BC #### [facility] [address] [place], [place] [id number] Dr. Wesley Ashraf PTTon 07-18-2021 aPTT Coag (Bld) [Time] 28.9 s Normal 22.3-36.2 [facility] Comment on above: Performed By: #### B MP, CMADM #### [facility] [address] [address] [address] Wesley Ashraf Basic Metabolic Panelon Anion gap [Moles/Vol] 16 mmol/L 9 - 17 mmol/L [facility] Calcium [Mass/Vol] 10.1 mg/dL 8.6 - 10.4 mg/dL [facility] Chloride [Moles/Vol] 98 mmol/L 98 - 107 mmol/L [facility] CO2 [Moles/Vol] 19 mmol/L Low 20 - 31 mmol/L [facility] Creatinine [Mass/Vol] 1.18 mg/dL 0.70 - 1.20 mg/dL [facility] GFR >60 >60 mL/min [facility] GFR Non- >60 >60 mL/min [facility] Glucose [Mass/Vol] 102 mg/dL High 70 - 99 mg/dL [facility] Interpretation and review of laboratory results Abnormal [facility] Potassium [Moles/Vol] 4.6 mmol/L 3.7 - 5.3 mmol/L [facility] Sodium [Moles/Vol] 133 mmol/L Low 135 - 144 mmol/L [facility] Urea nitrogen (BldV) [Mass/Vol] 22 mg/dL 8 - 23 mg/dL [facility] Urea nitrogen/Creatini ne (Bld) [Mass ratio] 19 [facility] CBC with Auto Differentialon 07-16-2021 Absolute Eos # 0.06 [facility] th Absolute Immature Granulocyte <0.03 [facility] Absolute Lymph # 1.48 [facility] Absolute [place] # 0.54 [facility] Basophils (Bld) [#/Vol] 0.03 10*3/uL [facility] Basophils/100 WBC (Bld) 1 % 0 - 2 % [facility] Eosinophils/100 WBC (Bld) 1 % 1 - 4 % [facility] Hematocrit (Bld) [Volume fraction] 43.4 % 40.7 - 50.3 % [facility] Hemoglobin.gastro intestinal spec 1 Ql (Stl) 14.7 g/dL 13.0 - 17.0 g/dL [facility] Immature granulocytes/100 WBC (Bld) 0 % 0 [facility] Interpretation and review of laboratory results Abnormal [facility] Lymphocytes/100 WBC (Bld) 22 % Low 24 - 43 % [facility] MCH (RBC) [Entitic mass] 28.9 pg 25.2 - 33.5 pg [facility] MCHC (RBC) [Mass/Vol] 33.9 g/dL 28.4 - 34.8 g/dL [facility] MCV (RBC) [Entitic vol] 85.3 fL 82.6 - 102.9 fL [facility] Monocytes/100 WBC (Bld) 8 % 3 - 12 % [facility] NRBC Automated 0.0 0.0 per 100 WBC [facility] Platelet distribution width (Bld) [Ratio] 12.0 % 11.8 - 14.4 % [facility] Platelet mean volume (Bld) [Entitic vol] 9.5 fL 8.1 - 13.5 fL [facility] Platelets (Bld) [#/Vol] 376 10*3/uL [facility] RBC (Bld) [#/Vol] 5.09 10*6/uL 4.21 - 5.77 m/uL [facility] Segmented neutrophils/100 WBC (Bld) 68 % High 36 - 65 % [facility] [#/Vol] 6.7 10*3/uL [facility] Laboratory - Chemistry and C hemistry - challengeon 07-16-2021 GFR/1.73 sq M.predicted MDRD (S/P/Bld) [Vol rate/Area] [facility] Comment on above: Average GFR for 60-6 9 years old: 85 mL/min/1.73sq m Chronic Kidney Disease: <60 mL/min/1.73sq m Kidney failure: <15 mL/min/1.73sq m eGFR calculated using average adult body mass. Additional eGFR calculator available at: http://www.globalrph.com/multiple_crcl_2012.htm Stage 1: Some kidney damage normal GFR Stage 2: Mild kidney damage GFR 60-89 Stage 3: Moderate kidney damage GFR 30-59 Stage 4: Severe kidney damage GFR 15-29 Stage 5: Severe kidney damage GFR <15 ESRD - chronic treatment by dialysis or transplant Basic Metabolic Panel w/ Ref caren to MGon 07-11-2021 Anion gap [Moles/Vol] 11 mmol/L 9 - 17 mmol/L [facility] Calcium [Mass/Vol] 9.3 mg/dL 8.6 - 10.4 mg/dL [facility] [facility] Chloride [Moles/Vol] 104 mmol/L 98 - 107 mmol/L [facility] CO2 [Moles/Vol] 24 mmol/L 20 - 31 mmol/L [facility] Creatinine [Mass/Vol] 1.34 mg/dL High 0.70 - 1.20 mg/dL [facility] GFR >60 >60 mL/min [facility] GFR Non- 53 mL/min Low >60 [facility] Glucose [Mass/Vol] 112 mg/dL High 70 - 99 mg/dL [facility] Interpretation and review of laboratory results Abnormal [facility] Potassium [Moles/Vol] 4.2 mmol/L 3.7 - 5.3 mmol/L [facility] Sodium [Moles/Vol] 139 mmol/L 135 - 144 mmol/L [facility] Urea nitrogen (BldV) [Mass/Vol] 15 mg/dL 8 - 23 mg/dL [facility] Urea nitrogen/Creatini ne (Bld) [Mass ratio] 11 [facility] CBC with Auto Differentialon 07-11-2021 Absolute Eos # 0.10 [facility] th Absolute Immature Granulocyte <0.03 [facility] Absolute Lymph # 0.98 Low [facility] alth Absolute [place] # 0.78 [facility] Basophils (Bld) [#/Vol] 0.03 10*3/uL [facility] Basophils/100 WBC (Bld) 0 % 0 - 2 % [facility] Eosinophils/100 WBC (Bld) 1 % 1 - 4 % [facility] Hematocrit (Bld) [Volume fraction] 39.3 % Low 40.7 - 50.3 % [facility] Hemoglobin.gastro intestinal spec 1 Ql (Stl) 13.0 g/dL 13.0 - 17.0 g/dL [facility] Immature granulocytes/100 WBC (Bld) 0 % 0 [facility] Interpretation and review of laboratory results Abnormal [facility] Lymphocytes/100 WBC (Bld) 8 % Low 24 - 43 % [facility] MCH (RBC) [Entitic mass] 29.1 pg 25.2 - 33.5 pg [facility] MCHC (RBC) [Mass/Vol] 33.1 g/dL 28.4 - 34.8 g/dL [facility] MCV (RBC) [Entitic vol] 88.1 fL 82.6 - 102.9 fL [facility] Monocytes/100 WBC (Bld) 6 % 3 - 12 % [facility] NRBC Automated 0.0 0.0 per 100 WBC [facility] Platelet distribution width (Bld) [Ratio] 12.3 % 11.8 - 14.4 % [facility] Platelet mean volume (Bld) [Entitic vol] 10.0 fL 8.1 - 13.5 fL [facility] Platelets (Bld) [#/Vol] 269 10*3/uL [facility] RBC (Bld) [#/Vol] 4.46 10*6/uL 4.21 - 5.77 m/uL [facility] Segmented neutrophils/100 WBC (Bld) 85 % High 36 - 65 % [facility] Segs [facility] [#/Vol] 12.9 10*3/uL High [facility] Laboratory - Chemistry and C hemistry - challengeon 07-11-2021 GFR/1.73 sq M.predicted MDRD (S/P/Bld) [Vol rate/Area] [facility] Comment on above: Average GFR for 60-6 9 years old: 85 mL/min/1.73sq m Chronic Kidney Disease: <60 mL/min/1.73sq m Kidney failure: <15 mL/min/1.73sq m eGFR calculated using average adult body mass. Additional eGFR calculator available at: http://www.LoopNet/multiple_crcl_2012.htm Stage 1: Some kidney damage normal GFR Stage 2: Mild kidney damage GFR 60-89 Stage 3: Moderate kidney damage GFR 30-59 Stage 4: Severe kidney damage GFR 15-29 Stage 5: Severe kidney damage GFR <15 ESRD - chronic treatment by dialysis or transplant Microscopic Urinalysison - [facility] Bacteria, UA TRACE Abnormal None [facility] Epithelial Cells UA 0 TO 2 [facility] Interpretation and review of laboratory results Abnormal [facility] RBC, UA 20 TO 50 [facility] WBC, UA 0 TO 2 [facility] Urinalysis with Reflex to Cu ltureon 07-11-2021 Bilirubin [facility], [facility] Dark Yellow Abnormal Yellow [facility] Glucose, Ur Negative NEGATIVE [facility] Interpretation and review of laboratory results Abnormal [facility] Ketones Ql (U) Negative NEGATIVE [facility] Leukocyte esterase Test strip Ql (U) Negative NEGATIVE [facility] Nitrite, Urine Positive Abnormal NEGATIVE [facility] pH, UA 6.0 [facility] Protein, UA 1+ Abnormal NEGATIVE [facility] Specific Meta, UA 1.015 [facility] Turbidity UA Clear Clear [facility] Urine Hgb 3+ Abnormal NEGATIVE [facility] Urobilinogen, Urine Normal Normal [facility] Basic Metabolic Panelon Anion gap [Moles/Vol] 9 mmol/L 9 - 17 mmol/L [facility] Calcium [Mass/Vol] 8.9 mg/dL 8.6 - 10.4 mg/dL [facility] Chloride [Moles/Vol] 104 mmol/L 98 - 107 mmol/L [facility] CO2 [Moles/Vol] 24 mmol/L 20 - 31 mmol/L [facility] Creatinine [Mass/Vol] 1.47 mg/dL High 0.70 - 1.20 mg/dL [facility] GFR 58 mL/min Low >60 [facility] GFR Non- 48 mL/min Low >60 [facility] Glucose [Mass/Vol] 95 mg/dL 70 - 99 mg/dL [facility] Interpretation and review of laboratory results Abnormal [facility] Potassium [Moles/Vol] 4.0 mmol/L 3.7 - 5.3 mmol/L [facility] Sodium [Moles/Vol] 137 mmol/L 135 - 144 mmol/L [facility] Urea nitrogen (BldV) [Mass/Vol] 21 mg/dL 8 - 23 mg/dL [facility] Urea nitrogen/Creatini ne (Bld) [Mass ratio] 14 [facility] CBCon 07-10-2021 Hematocrit (Bld) [Volume fraction] 36.0 % Low 40.7 - 50.3 % [facility] Hemoglobin.gastro intestinal spec 1 Ql (Stl) 12.5 g/dL Low 13.0 - 17.0 g/dL [facility] Interpretation and review of laboratory results Abnormal [facility] MCH (RBC) [Entitic mass] 29.9 pg 25.2 - 33.5 pg [facility] MCHC (RBC) [Mass/Vol] 34.7 g/dL 28.4 - 34.8 g/dL [facility] MCV (RBC) [Entitic vol] 86.1 fL 82.6 - 102.9 fL [facility] NRBC Automated 0.0 0.0 per 100 WBC [facility] Platelet distribution width (Bld) [Ratio] 12.4 % 11.8 - 14.4 % [facility] Platelet mean volume (Bld) [Entitic vol] 9.9 fL 8.1 - 13.5 fL [facility] Platelets (Bld) [#/Vol] 239 10*3/uL [facility] RBC (Bld) [#/Vol] 4.18 10*6/uL Low 4.21 - 5.77 m/uL [facility] WBC (Bld) [#/Vol] 9.0 10*3/uL [facility] Laboratory - Chemistry and C hemistry - challengeon 07-10-2021 GFR/1.73 sq M.predicted MDRD (S/P/Bld) [Vol rate/Area] [facility] Comment on above: Average GFR for 60-6 9 years old: 85 mL/min/1.73sq m Chronic Kidney Disease: <60 mL/min/1.73sq m Kidney failure: <15 mL/min/1.73sq m eGFR calculated using average adult body mass. Additional eGFR calculator available at: http://www.BandApp.Trovix/multiple_crcl_2012.htm Stage 1: Some kidney damage normal GFR Stage 2: Mild kidney damage GFR 60-89 Stage 3: Moderate kidney damage GFR 30-59 Stage 4: Severe kidney damage GFR 15-29 Stage 5: Severe kidney damage GFR <15 ESRD - chronic treatment by dialysis or transplant FLUORO FOR SURGICAL PROCEDUR ESon 07-09-2021 Radiology exam is co mplete. No Radiologist dictation. Please follow up with ordering provider. [facility] RIS CONSOLIDATED COVID-19on 07-06-2021 SARS-CoV-2 (COVID-19) RNA JOHN+probe Ql (Unsp spec) [facility] SARS-CoV-2 (COVID-19) RNA JOHN+probe Ql (Unsp spec) Not detected Not Detected [facility] Comment on above: The specimen [...] this assay. Fact sheet for Healthcare Providers: https://www.fda.gov/media/436744/download Fact sheet for Patients: https://www.fda.gov/media/500310/download METHODOLOGY: RT-PCR Source .NASOPHARYNGEAL SWAB [facility] XR KUB 1 VIEWon 06-25-2021 XR KUB [...] by: DUSTIN TUCKER Date: 2021-06-25 10:30 Normal [facility] CARDIAC NIKO 3-6on 2 CK [Catalytic activity/Vol] 85 U/L Normal 55-170 [facility] Comment on above: Performed By: #### C MREP #### [facility] [address] [address] [address] Wesley Ashraf CK.MB [Mass/Vol] 1.42 ng/mL Normal <=2.37 [facility] Comment on above: Performed By: #### C MREP #### [facility] [address] [address] [address] Wesley Ashraf HSTROP 10.1 pg/mL Normal 4.0-42.2 [facility] Comment on above: Result Comment: CUT- OFF POINTS HAVE BEEN ESTABLISHED BASED ON THE FOURTH UNIVERSAL DEFINITIONS OF MYOCARDIAL INFARCTION. THE UPPER REFERENCE LIMIT (URL) OF TROPONIN, DEFINED THE 99TH PERCENTILE OF cTnI DISTRIBUTION IN A REFERENCE POPULATION, HAS BEEN CONFIRMED THE DECISION THRESHOLD FOR MS DIAGNOSIS. Performed By: #### C MREP #### [facility] [address] [address] [address] Wesley Ashraf CK [Catalytic activity/Vol] 101 U/L Normal 55-170 [facility] Comment on above: Performed By: #### C MREP #### [facility] [address] [address] [address] Wesley Ashraf CK.MB [Mass/Vol] 1.64 ng/mL Normal <=2.37 [facility] Comment on above: Performed By: #### C MREP #### [facility] [address] [address] [address] Wesley Ashraf HSTROP 9.3 pg/mL Normal 4.0-42.2 [facility] Comment on above: Result Comment: CUT- OFF POINTS HAVE BEEN ESTABLISHED BASED ON THE FOURTH UNIVERSAL DEFINITIONS OF MYOCARDIAL INFARCTION. THE UPPER REFERENCE LIMIT (URL) OF TROPONIN, DEFINED THE 99TH PERCENTILE OF cTnI DISTRIBUTION IN A REFERENCE POPULATION, HAS BEEN CONFIRMED THE DECISION THRESHOLD FOR MS DIAGNOSIS. Performed By: #### C MREP #### [facility] [address] ABD/PELVIS WO CONon [...] LENIN JAY Date: 2021-06-22 22:30 Normal [facility] CULTURE URINEon 06-23-2021 CULTURE URINE Culture Observations : LIGHT GROWTH OF MIXED SKIN MEGGAN. NO POTENTIAL PATHOGENS SEEN. Normal [facility] Comment on above: Performed By: #### C BC #### [facility] [address] [place] [address] Dr. Wesley Ashraf ER URINE PROFILEon 2 Bilirubin Ql (U) Negative Normal NEGATIVE [facility] Comment on above: Performed By: #### U MICRO, ERUR #### [facility] [address] [place] [address] Dr. Wesley Ashraf Clarity (U) CLEAR Normal CLEAR [facility] Comment on above: Performed By: #### U MICRO, ERUR #### [facility] [address] [place] [address] Dr. Wesley Ashraf Color (U) LT. YELLOW Normal YELLOW [facility] Comment on above: Performed By: #### U MICRO, ERUR #### [facility] [address] [place] [address] Dr. Wesley MICHAELS A micrscopic examina tion will be performed if indicated. Normal [facility] Comment on above: Performed By: #### U MICRO, ERUR #### [facility] [address] [address] [address] Wesley Ashraf Glucose Ql (U) Negative Normal NEGATIVE [facility] Comment on above: Performed By: #### U MICRO, ERUR #### [facility] [address] [address] [address] Wesley Ashraf Hemoglobin Ql (U) MODERATE Abnormal NEGATIVE [facility] Comment on above: Performed By: #### U MICRO, ERUR #### [facility] [address] [address] [address] Wesley Ashraf Ketones Ql (U) Negative Normal NEGATIVE [facility] Comment on above: Performed By: #### U MICRO, ERUR #### [facility] [address] [place] [address] Dr. Wesley Ashraf LEUKOCYTES Negative Normal NEGATIVE [facility] Comment on above: Performed By: #### U MICRO, ERUR #### [facility] [address] [address] [address] Wesley Ashraf Nitrite Ql (U) Negative Normal NEGATIVE [facility] Comment on above: Performed By: #### U MICRO, ERUR #### [facility] [address] [place] [address] Dr. Wesley Ashraf pH (U) 6.0 [pH] Normal 5-9 [facility] Comment on above: Performed By: #### U MICRO, ERUR #### [facility] [address] [address] [address] Wesley Ashraf SPEC GRAVITY 1.025 Normal 1.005-<=1. 025 [facility] Comment on above: Performed By: #### U MICRO, ERUR #### [facility] [address] [place] [address] Dr. Wesley Ashraf UA PROTEIN TRACE Normal NEGATIVE/ TRACE [facility] Comment on above: Performed By: #### U MICRO, ERUR #### [facility] [address] [address] [address] Wesley Ashraf UR MICRO IND INDICATED Normal [facility] Comment on above: Performed By: #### U MICRO, ERUR #### [facility] [address] [place] [address] Dr. Wesley Ashraf Urobilinogen Qn (U) 0.2 {Al'U}/dL Normal 0.2 - 1.0 [facility] Comment on above: Performed By: #### U MICRO, ERUR #### [facility] [address] [place] [address] Dr. Wesley Ashraf URINE MICROSCOPIC ONLYon BACTERIA SMALL Abnormal NONE SEEN [facility] Comment on above: Performed By: #### U MICRO, ERUR #### [facility] [address] [place] [address] Dr. Wesley Ashraf Bacteria identified Cx Nom (U) INDICATED Normal [facility] Comment on above: Performed By: #### U MICRO, ERUR #### [facility] [address] [place] [address] Dr. Wesley Ashraf CAST NONE SEEN Normal NONE SEEN [facility] Comment on above: Performed By: #### U MICRO, ERUR #### [facility] [address] [place] [address] Dr. Wesley Ashraf Crystals LM Nom (Urine sed) NONE SEEN Normal NONE SEEN [facility] Comment on above: Performed By: #### U MICRO, ERUR #### [facility] [address] [place] [address] Dr. Wesley Ashraf Epithelial cells LM Ql (Urine sed) RARE Normal NONE SEEN /RARE [facility] Comment on above: Performed By: #### U MICRO, ERUR #### [facility] [address] [place] [address] Dr. Wesley Ashraf MUCOUS NONE SEEN Normal NONE SEEN [facility] Comment on above: Performed By: #### U MICRO, ERUR #### [facility] [address] [place] [address] Dr. Wesley Ashraf RBC 50-75 Abnormal 0-2 [facility] Comment on above: Performed By: #### U MICRO, ERUR #### [facility] [address] [place] [address] Dr. Wesley Ashraf WBC 0-2 Abnormal NONE SEEN [facility] Comment on above: Performed By: #### U MICRO, ERUR #### [facility] [address] [place] [address] Dr. Wesley Ashraf BNPon 06-22-2021 Natriuretic peptide B (Bld) [Mass/Vol] 41.0 pg/mL Normal <=900.0 [facility] Comment on above: Performed By: #### C BC #### [facility] [address] [place] [address] Dr. Wesley Ashraf CBC AUTO DIFFon 06-22-2021 BASO # 0.0 103/ul Normal 0.0-0.1 [facility] Comment on above: Performed By: #### C BC #### [facility] [address] [place] [address] Dr. Wesley Ashraf Basophils/100 WBC (Bld) 0.2 % Normal 0.2-2.0 [facility] Comment on above: Performed By: #### C BC #### [facility] [address] [place] [address] Dr. Wesley Ashraf EO # 0.1 103/ul Normal 0.0-0.7 [facility] Comment on above: Performed By: #### C BC #### [facility] [address] [place] [address] Dr. Wesley Ashraf Eosinophils/100 WBC (Bld) 1.0 % Normal 0.9-7.0 [facility] Comment on above: Performed By: #### C BC #### [facility] [address] [place] [address] Dr. Wesley Ashraf Erythrocyte distribution width (RBC) [Ratio] 12.5 % Normal 11.0-15.0 [facility] Comment on above: Performed By: #### C BC #### [facility] [address] [place] [address] Dr. Wesley Ashraf Hematocrit (Bld) [Volume fraction] 41.3 % Critically low 42.0-54.0 [facility] Comment on above: Performed By: #### C BC #### [facility] [address] [address] [address] Wesley Ashraf Hemoglobin (Bld) [Mass/Vol] 14.4 g/dL Normal 14.0-18.0 [facility] Comment on above: Performed By: #### C BC #### [facility] [address] [address] [address] Wesley Ashraf IG # 0.04 10e3/ul Critically high 0.00-0.03 [facility] Comment on above: Performed By: #### C BC #### [facility] [address] [place] [address] Dr. Wesley Ashraf IG % 0.3 % Normal 0.0-0.5 [facility] Comment on above: Performed By: #### C BC #### [facility] [address] [place] [address] Dr. Wesley Ashraf LYMPH # 1.8 103/ul Normal 1.2-3.8 [facility] Comment on above: Performed By: #### C BC #### [facility] [address] [place] [address] Dr. Wesley Ashraf Lymphocytes/100 WBC (Bld) 15.1 % Critically low 20.5-60.0 [facility] Comment on above: Performed By: #### C BC #### [facility] [address] [place] [address] Dr. Wesley Ashraf MANUAL DIFF REQ NO Normal [facility] Comment on above: Performed By: #### C BC #### [facility] [address] [place] [address] Dr. Wesley Ashraf MCH (RBC) [Entitic mass] 29.7 pg Normal 25.9-34.0 [facility] Comment on above: Performed By: #### C BC #### [facility] [address] [place] [address] Dr. Wesley Ashraf MCHC (RBC) [Mass/Vol] 34.9 g/dL Normal 29.9-35.2 [facility] Comment on above: Performed By: #### C BC #### [facility] [address] [address] [address] Wesley Ashraf MCV (RBC) [Entitic vol] 85.2 fL Normal 80.0-94.0 [facility] Comment on above: Performed By: #### C BC #### [facility] [address] [address] [address] Wesley Ashraf MONO # 0.9 103/ul Critically high 0.3-0.8 [facility] Comment on above: Performed By: #### C BC #### [facility] [address] [address] [address] Wesley Ashraf Monocytes/100 WBC (Bld) 7.3 % Normal 1.7-12.0 [facility] Comment on above: Performed By: #### C BC #### [facility] [address] [place] [address] Dr. Wesley Ashraf NEUT # 9.1 103/ul Critically high 1.4-6.5 [facility] Comment on above: Performed By: #### C BC #### [facility] [address] [address] [address] Wesley Ashraf Neutrophils/100 WBC (Bld) 76.1 % Critically high 43.0-75.0 [facility] Comment on above: Performed By: #### C BC #### [facility] [address] [place] [address] Dr. Wesley Ashraf Platelet mean volume (Bld) [Entitic vol] 9.7 fL Normal 9.5-13.5 [facility] Comment on above: Performed By: #### C BC #### [facility] [address] [place] [address] Dr. Wesley Ashraf PLT 268 103/ul Normal 150-450 [facility] Comment on above: Performed By: #### C BC #### [facility] [address] [address] [address] Wesley Ashraf RBC 4.85 106/ul Normal 4.70-6.10 [facility] Comment on above: Performed By: #### C BC #### [facility] [address] [place] [address] Dr. Wesley Ashraf WBC 12.0 103/ul Critically high 4.0-11.0 [facility] Comment on above: Performed By: #### C BC #### [facility] [address] [place] [address] Dr. Wesley Ashraf D-DIMERon 06-22-2021 D-DIMER 0.33 mg/L FEU Normal 0.19-0.50 [facility] Comment on above: Performed By: #### C MREP #### [facility] [address] [place] [address] Dr. Wesley Ashraf D-DIMER COMMENTS SEE BELOW Normal [facility] Comment on above: Result Comment: Incr eases [...] hospitalization. Performed By: #### C MREP #### [facility] [address] [place] [address] Dr. Wesley Ashraf PROF CHEM 8 (BAS METB)on Anion gap [Moles/Vol] 15.0 mmol/L Normal [facility] Comment on above: Performed By: #### C BC #### [facility] [address] [place] [address] Dr. Wesley Ashraf Calcium [Mass/Vol] 9.3 mg/dL Normal 8.4-10.2 [facility] Comment on above: Performed By: #### C BC #### [facility] [address] [place] [address] Dr. Wesley Ashraf Chloride [Moles/Vol] 104 mmol/L Normal 98-107 [facility] Comment on above: Performed By: #### C BC #### [facility] [address] [place] [address] Dr. Wesley Ashraf CO2 [Moles/Vol] 24.9 mmol/L Normal 22.0-30.0 [facility] Comment on above: Performed By: #### C BC #### [facility] [address] [address] [address] Wesley Ashraf Creatinine [Mass/Vol] 0.95 mg/dL Normal 0.66-1.25 [facility] Comment on above: Performed By: #### C BC #### [facility] [address] [address] [address] Wesley Ashraf EGFR-AF VIETNAMESE >60 Normal >=60 [facility] Comment on above: Performed By: #### C BC #### [facility] [address] [place] [address] Dr. Wesley Ashraf EGFR-NON AF VIETNAMESE >60 Normal >=60 [facility] Comment on above: Performed By: #### C BC #### [facility] [address] [place] [address] Dr. Wesley Ashraf Glucose [Mass/Vol] 103 mg/dL Normal 74-106 [facility] Comment on above: Performed By: #### C BC #### [facility] [address] [place] [address] Dr. Wesley Ashraf Potassium [Moles/Vol] 3.9 mmol/L Normal 3.4-5.0 [facility] Comment on above: Performed By: #### C BC #### [facility] [address] [place] [address] Dr. Wesley Ashraf Sodium [Moles/Vol] 140 mmol/L Normal 137-145 [facility] Comment on above: Performed By: #### C BC #### [facility] [address] [place] [address] Dr. Wesley Ashraf Urea nitrogen [Mass/Vol] 21.0 mg/dL Critically high 9.0-20.0 [facility] Comment on above: Performed By: #### C BC #### [facility] [address] [place] [address] Dr. Wesley Ashraf Urea nitrogen/Creatini ne [Mass ratio] 22.1 mg/mg Normal [facility] Comment on above: Performed By: #### C BC #### [facility] [address] [place] [address] Dr. Wesley Ashraf PROTIMEon 06-22-2021 INR Coag (PPP) [Relative time] 0.95 {INR} Normal [facility] Comment on above: Performed By: #### C MREP #### [facility] [address] [place] [address] Dr. Wesley Ashraf INR GUIDELINES SEE BELOW Normal [facility] Comment on above: Result Comment: LILI RED INR: 2.0 - 3.0 CONDITIONS NOT LISTED BELOW 2.5 - 3.5 FOR PROSTHETIC HEART VALVE REPLACEMENT 2.5 - 3.5 RECURRENT THROMBOSIS Performed By: #### C MREP #### [facility] [address] [place] [address] Dr. Wesley Ashraf PT Coag (PPP) [Time] 10.3 s Normal 9.0-11.6 [facility] Comment on above: Performed By: #### C MREP #### [facility] [address] [place] [address] Dr. Wesley Ashraf PTTon 06-22-2021 aPTT Coag (Bld) [Time] 27.9 s Normal 22.3-36.2 [facility] Comment on above: Performed By: #### C MREP #### [facility] [address] [place] [address] Dr. Wesley Ashraf TROPONIN, HIGH SENSITIVITYon 06-22-2021 HSTROP 6.7 pg/mL Normal 4.0-42.2 [facility] Comment on above: Result Comment: CUT- OFF POINTS HAVE BEEN ESTABLISHED BASED ON THE FOURTH UNIVERSAL DEFINITIONS OF MYOCARDIAL INFARCTION. THE UPPER REFERENCE LIMIT (URL) OF TROPONIN, DEFINED THE 99TH PERCENTILE OF cTnI DISTRIBUTION IN A REFERENCE POPULATION, HAS BEEN CONFIRMED THE DECISION THRESHOLD FOR MS DIAGNOSIS. Performed By: #### B KHURRAM, ERIC #### [facility] [address] [place] [address] Dr. Wesley Ashraf INSULINon 05-24-2021 Insulin 10.6 uIU/mL Normal 2.6-24.9 [facility] Comment on above: Performed By: #### I NSULIN #### [facility] [address] [place] [address] Dr. Wesley Ashraf PSA SCREENING LABCORPon 05-11 Prostate specific Ag [Mass/Vol] 1.0 ng/mL Normal 0.0-4.0 [facility] Comment on above: Result Comment: Anibal WEINER methodology. . According to the [place] [employer], Serum PSA should decrease and [...] Performed By: #### B ERIC PAULSON #### [facility] [address] [place] [address] Dr. Wesley Ashraf AMYLASEon 05-23-2021 Amylase [Catalytic activity/Vol] 36 U/L Normal 31-110 [facility] Comment on above: Performed By: #### C MREP #### [facility] [address] [place] [address] Dr. Wesley Ashraf CBC AUTO DIFFon 05-23-2021 BASO # 0.0 103/ul Normal 0.0-0.1 [facility] Comment on above: Performed By: #### B ERIC PAULSON #### [facility] [address] [place] [address] Dr. Wesley Ashraf Basophils/100 WBC (Bld) 0.4 % Normal 0.2-2.0 [facility] Comment on above: Performed By: #### B ERIC PAULSON #### [facility] [address] [place] [address] Dr. Wesley Ashraf EO # 0.2 103/ul Normal 0.0-0.7 [facility] Comment on above: Performed By: #### B ERIC PAULSON #### [facility] [address] [place] [address] Dr. Wesley Ashraf Eosinophils/100 WBC (Bld) 2.3 % Normal 0.9-7.0 [facility] Comment on above: Performed By: #### B ERIC PAULSON #### [facility] [address] [place] [address] Dr. Wesley Ashraf Erythrocyte distribution width (RBC) [Ratio] 13.0 % Normal 11.0-15.0 [facility] Comment on above: Performed By: #### B KHURRAM, AMADODM #### [facility] [address] [place] [address] Dr. Wesley Ashraf Hematocrit (Bld) [Volume fraction] 39.2 % Critically low 42.0-54.0 [facility] Comment on above: Performed By: #### B ERIC PAULSON #### [facility] [address] [place] [address] Dr. Wesley Ashraf Hemoglobin (Bld) [Mass/Vol] 13.4 g/dL Critically low 14.0-18.0 [facility] Comment on above: Performed By: #### B ERIC PAULSON #### [facility] [address] [place] [address] Dr. Wesley Ashraf IG # 0.02 10e3/ul Normal 0.00-0.03 [facility] Comment on above: Performed By: #### B ERIC PAULSON #### [facility] [address] [place] [address] Dr. Wesley Ashraf IG % 0.3 % Normal 0.0-0.5 [facility] Comment on above: Performed By: #### B ERIC PAULSON #### [facility] [address] [place] [address] Dr. Wesley Ashraf LYMPH # 1.6 103/ul Normal 1.2-3.8 [facility] Comment on above: Performed By: #### B AMADO PAULSONDM #### [facility] [address] [place] [address] Dr. Wesley Ashraf Lymphocytes/100 WBC (Bld) 22.6 % Normal 20.5-60.0 [facility] Comment on above: Performed By: #### B ERIC PAULSON #### [facility] [address] [place] [address] Dr. Wesley Ashraf MANUAL DIFF REQ NO Normal [facility] Comment on above: Performed By: #### B KHURRAM, CMADM #### [facility] [address] [place] [address] Dr. Wesley Ashraf MCH (RBC) [Entitic mass] 28.9 pg Normal 25.9-34.0 [facility] Comment on above: Performed By: #### B KHURRAM, CMADM #### [facility] [address] [place] [address] Dr. Wesley Ashraf MCHC (RBC) [Mass/Vol] 34.2 g/dL Normal 29.9-35.2 [facility] Comment on above: Performed By: #### B KHURRAM, AMADODM #### [facility] [address] [place] [address] Dr. Wesley Ashraf MCV (RBC) [Entitic vol] 84.7 fL Normal 80.0-94.0 [facility] Comment on above: Performed By: #### B KHURRAM, CMADM #### [facility] [address] [place] [address] Dr. Wesley Ashraf MONO # 0.6 103/ul Normal 0.3-0.8 [facility] Comment on above: Performed By: #### B KHURRAM, AMADODM #### [facility] [address] [place] [address] Dr. Wesley Ashraf Monocytes/100 WBC (Bld) 8.0 % Normal 1.7-12.0 [facility] Comment on above: Performed By: #### B KHURRAM, CMADM #### [facility] [address] [place] [address] Dr. Wesley Ashraf NEUT # 4.6 103/ul Normal 1.4-6.5 [facility] Comment on above: Performed By: #### B KHURRAM, CMADM #### [facility] [address] [place] [address] Dr. Wesley Ashraf Neutrophils/100 WBC (Bld) 66.4 % Normal 43.0-75.0 [facility] Comment on above: Performed By: #### B KHURRAM, CMADM #### [facility] [address] [address] [address] Wesley Ashraf Platelet mean volume (Bld) [Entitic vol] 9.8 fL Normal 9.5-13.5 [facility] Comment on above: Performed By: #### B ERIC PAULSON #### [facility] [address] [address] [address] Wesley Ashraf PLT 295 103/ul Normal 150-450 [facility] Comment on above: Performed By: #### B ERIC PAULSON #### [facility] [address] [address] [address] Wesley Ashraf RBC 4.63 106/ul Critically low 4.70-6.10 [facility] Comment on above: Performed By: #### B ERIC PAULSON #### [facility] [address] [address] [address] Wesley Ashraf WBC 7.0 103/ul Normal 4.0-11.0 [facility] Comment on above: Performed By: #### B ERIC PAULSON #### [facility] [address] [address] [address] Wesley Ashraf GLYCOHEMOGLOBIN A1Con 2021 ADA RECOMMENDATION ADA THERAPEUTIC TARGET 6.0 - 7.0 ACTION SUGGESTED > 7.0 Normal [facility] Comment on above: Performed By: #### B ERIC PAULSON #### [facility] [address] [address] [address] Wesley Ashraf Glucose [Mass/Vol] 117 mg/dL Normal [facility] Comment on above: Performed By: #### B ERIC PAULSON #### [facility] [address] [address] [address] Wesley Ashraf HbA1c (Bld) [Mass fraction] 5.7 % Normal <=6.0 [facility] Comment on above: Performed By: #### B ERIC PAULSON #### [facility] [address] [address] [address] Wesley Ashraf LIPASEon 05-23-2021 Lipase [Catalytic activity/Vol] 128.0 U/L Normal 23.0-300.0 [facility] Comment on above: Performed By: #### C MREP #### [facility] [address] [address] [address] Wesley Ashraf LIPID PROFILEon 05-23-2021 CHOL-HDL RATIO NORM SEE BELOW Normal [facility] Comment on above: Result Comment: 3.3 - 4.4 LOW RISK 4.4 - 7.1 AVERAGE RISK 7.1 - 11.0 MODERATE RISK >11.0 HIGH RISK Performed By: #### C MREP #### [facility] [address] [address] [address] Wesley Ashraf Cholesterol [Mass/Vol] 135 mg/dL Normal <=200 [facility] Comment on above: Performed By: #### C MREP #### [facility] [address] [place] [address] Dr. Wesley Ashraf Cholesterol in HDL [Mass/Vol] 56 mg/dL Normal [facility] Comment on above: Performed By: #### C MREP #### [facility] [address] [address] [address] Wesley Ashraf Cholesterol in LDL [Mass/Vol] 39.4 mg/dL Normal [facility] Comment on above: Performed By: #### C MREP #### [facility] [address] [place] [address] Dr. Wesley Ashraf Cholesterol.total /Cholesterol in HDL [Mass ratio] 2.4 {ratio} Normal [facility] Comment on above: Performed By: #### C MREP #### [facility] [address] [address] [address] Wesley Ashraf HDL NORMAL > or = 60 mg/dl - LO W CARDIOVASCULAR RISK <40 mg/dl - HIGH CARDIOVASCULAR RISK Normal [facility] Comment on above: Performed By: #### C MREP #### [facility] [address] [place] [address] Dr. Wesley Ashraf LDL CALC NORMAL SEE BELOW Normal [facility] Comment on above: Result Comment: <100 mg/dl OPTIMAL 100 - 129 mg/dl NEAR OR ABOVE OPTIMAL 130 - 159 mg/dl BORDERLINE HIGH 160 - 189 mg/dl HIGH >190 mg/dl VERY HIGH Performed By: #### C MREP #### [facility] [address] [place] [address] Dr. Wesley Ashraf Triglyceride [Mass/Vol] 198 mg/dL Critically high <=150 [facility] Comment on above: Performed By: #### C MREP #### [facility] [address] [address] [address] Wesley Ashraf VLDL CALC 39.6 mg/dL Normal [facility] Comment on above: Performed By: #### C MREP #### [facility] [address] [place] [address] Dr. Wesley Ashraf PROF 14(COMP METB)on 022 Albumin [Mass/Vol] 3.7 g/dL Normal 3.5-5.0 [facility] Comment on above: Performed By: #### C BC #### [facility] [address] [place] [address] Dr. Wesley Ashraf Albumin/Globulin [Mass ratio] 1.1 {ratio} Normal [facility] Comment on above: Performed By: #### C BC #### [facility] [address] [place] [address] Dr. Wesley Ashraf ALP [Catalytic activity/Vol] 63 U/L Normal 38-126 [facility] Comment on above: Performed By: #### C BC #### [facility] [address] [place] [address] Dr. Wesley Ashraf ALT [Catalytic activity/Vol] 36 U/L Normal 21-72 [facility] Comment on above: Performed By: #### C BC #### [facility] [address] [place] [address] Dr. Wesley Ashraf Anion gap [Moles/Vol] 16.4 mmol/L Normal [facility] Comment on above: Performed By: #### C BC #### [facility] [address] [place] [address] Dr. Wesley Ashraf AST [Catalytic activity/Vol] 20 U/L Normal 17-59 [facility] Comment on above: Performed By: #### C BC #### [facility] [address] [place] [address] Dr. Wesley Ashraf Bilirubin [Mass/Vol] 0.6 mg/dL Normal 0.2-1.3 [facility] Comment on above: Performed By: #### C BC #### [facility] [address] [place] [address] Dr. Wesley Ashraf Calcium [Mass/Vol] 8.9 mg/dL Normal 8.4-10.2 [facility] Comment on above: Performed By: #### C BC #### [facility] [address] [address] [address] Wesley Ashraf Chloride [Moles/Vol] 102 mmol/L Normal 98-107 [facility] Comment on above: Performed By: #### C BC #### [facility] [address] [place] [address] Dr. Wesley Ashraf CO2 [Moles/Vol] 23.7 mmol/L Normal 22.0-30.0 [facility] Comment on above: Performed By: #### C BC #### [facility] [address] [place] [address] Dr. Wesley Ashraf Creatinine [Mass/Vol] 0.81 mg/dL Normal 0.66-1.25 [facility] Comment on above: Performed By: #### C BC #### [facility] [address] [place] [address] Dr. Wesley Ashraf EGFR-AF VIETNAMESE >60 Normal >=60 [facility] Comment on above: Performed By: #### C BC #### [facility] [address] [place] [address] Dr. Wesley Ashraf EGFR-NON AF VIETNAMESE >60 Normal >=60 [facility] Comment on above: Performed By: #### C BC #### [facility] [address] [place] [address] Dr. Wesley Ashraf Globulin (S) [Mass/Vol] 3.3 g/dL Normal [facility] Comment on above: Performed By: #### C BC #### [facility] [address] [place] [address] Dr. Wesley Ashraf Glucose [Mass/Vol] 104 mg/dL Normal 74-106 [facility] Comment on above: Performed By: #### C BC #### [facility] [address] [address] [address] Wesley Ashraf Potassium [Moles/Vol] 4.1 mmol/L Normal 3.4-5.0 [facility] Comment on above: Performed By: #### C BC #### [facility] [address] [address] [address] Wesley Ashraf Protein [Mass/Vol] 7.0 g/dL Normal 6.1-8.2 [facility] Comment on above: Performed By: #### C BC #### [facility] [address] [address] [address] Wesley Ashraf Sodium [Moles/Vol] 138 mmol/L Normal 137-145 [facility] Comment on above: Performed By: #### C BC #### [facility] [address] [address] [address] Wesley Ashraf Urea nitrogen [Mass/Vol] 17.0 mg/dL Normal 9.0-20.0 [facility] Comment on above: Performed By: #### C BC #### [facility] [address] [address] [address] Wesley Ashraf Urea nitrogen/Creatini ne [Mass ratio] 21.0 mg/mg Normal [facility] Comment on above: Performed By: #### C BC #### [facility] [address] [address] [address] Wesley Ashraf URIC ACID SERUMon 05-23-2021 Urate [Mass/Vol] 4.6 mg/dL Normal 3.5-8.5 [facility] Comment on above: Performed By: #### C MREP #### [facility] [address] [address] [address] Wesley Ashraf CARDIAC NIKO ADMITon 021 CK [Catalytic activity/Vol] 105 U/L Normal 55-170 [facility] Comment on above: Performed By: #### B MP, CMADM #### [facility] [address] [place] [address] Dr. Wesley Ashraf CK.MB [Mass/Vol] 1.63 ng/mL Normal <=2.37 [facility] Comment on above: Performed By: #### B ERIC PAULSON #### [facility] [address] [place] [address] Dr. Wesley Ashraf HSTROP 7.7 pg/mL Normal 4.0-42.2 [facility] Comment on above: Result Comment: CUT- OFF POINTS HAVE BEEN ESTABLISHED BASED ON THE FOURTH UNIVERSAL DEFINITIONS OF MYOCARDIAL INFARCTION. THE UPPER REFERENCE LIMIT (URL) OF TROPONIN, DEFINED THE 99TH PERCENTILE OF cTnI DISTRIBUTION IN A REFERENCE POPULATION, HAS BEEN CONFIRMED THE DECISION THRESHOLD FOR MS DIAGNOSIS. Performed By: #### B ERIC PAULSON #### [facility] [address] [place] [address] Dr. Wesley Ashraf ARUN 33.0 ng/mL Normal <=121.0 [facility] Comment on above: Performed By: #### ERIC Cannon MP #### [facility] [address] [place] [address] Dr. Wesley Ashraf CBC AUTO DIFFon 04-13-2021 BASO # 0.0 103/ul Normal 0.0-0.1 [facility] Comment on above: Performed By: #### ERIC Cannon MP #### [facility] [address] [place] [address] Dr. Wesley Ashraf Basophils/100 WBC (Bld) 0.2 % Normal 0.2-2.0 [facility] Comment on above: Performed By: #### ERIC Cannon MP #### [facility] [address] [place] [address] Dr. Wesley Ashraf EO # 0.3 103/ul Normal 0.0-0.7 [facility] Comment on above: Performed By: #### ERIC Cannon MP #### [facility] [address] [place] [address] Dr. Wesley Ashraf Eosinophils/100 WBC (Bld) 4.2 % Normal 0.9-7.0 [facility] Comment on above: Performed By: #### ERIC Cannon MP #### [facility] [address] [place] [address] Dr. Wesley Ashraf Erythrocyte distribution width (RBC) [Ratio] 12.3 % Normal 11.0-15.0 [facility] Comment on above: Performed By: #### B KHURRAM, ERIC #### [facility] [address] [place] [address] Dr. Wesley Ashraf Hematocrit (Bld) [Volume fraction] 38.6 % Critically low 42.0-54.0 [facility] Comment on above: Performed By: #### B KHURRAM, AMADODM #### [facility] [address] [place] [address] Dr. Wesley Ashraf Hemoglobin (Bld) [Mass/Vol] 13.5 g/dL Critically low 14.0-18.0 [facility] Comment on above: Performed By: #### B KHURRAM, AMADODM #### [facility] [address] [place] [address] Dr. Wesley Ashraf IG # 0.02 10e3/ul Normal 0.00-0.03 [facility] Comment on above: Performed By: #### B KHURRAM, AMADODM #### [facility] [address] [place] [address] Dr. Wesley Ashraf IG % 0.3 % Normal 0.0-0.5 [facility] Comment on above: Performed By: #### B KHURRAM, AMADODM #### [facility] [address] [place] [address] Dr. Wesley Ashraf LYMPH # 1.5 103/ul Normal 1.2-3.8 [facility] Comment on above: Performed By: #### B KHURRAM, CMADM #### [facility] [address] [place] [address] Dr. Wesley Ashraf Lymphocytes/100 WBC (Bld) 25.1 % Normal 20.5-60.0 [facility] Comment on above: Performed By: #### B KHURRAM, CMADM #### [facility] [address] [place] [address] Dr. Wesley Ashraf MANUAL DIFF REQ NO Normal [facility] Comment on above: Performed By: #### B KHURRAM, AMADODM #### [facility] [address] [address] [address] Wesley Ashraf MCH (RBC) [Entitic mass] 29.3 pg Normal 25.9-34.0 [facility] Comment on above: Performed By: #### B MP, CMADM #### [facility] [address] [place] [address] Dr. Wesley Ashraf MCHC (RBC) [Mass/Vol] 35.0 g/dL Normal 29.9-35.2 [facility] Comment on above: Performed By: #### B MP, CMADM #### [facility] [address] [place] [address] Dr. Wesley Ashraf MCV (RBC) [Entitic vol] 83.9 fL Normal 80.0-94.0 [facility] Comment on above: Performed By: #### B MP, CMADM #### [facility] [address] [place] [address] Dr. Wesley Ashraf MONO # 0.5 103/ul Normal 0.3-0.8 [facility] Comment on above: Performed By: #### B MP, CMADM #### [facility] [address] [place] [address] Dr. Wesley Ashraf Monocytes/100 WBC (Bld) 8.4 % Normal 1.7-12.0 [facility] Comment on above: Performed By: #### B MP, CMADM #### [facility] [address] [place] [address] Dr. Wesley Ashraf NEUT # 3.7 103/ul Normal 1.4-6.5 [facility] Comment on above: Performed By: #### B MP, CMADM #### [facility] [address] [place] [address] Dr. Wesley Ashraf Neutrophils/100 WBC (Bld) 61.8 % Normal 43.0-75.0 [facility] Comment on above: Performed By: #### B MP, CMADM #### [facility] [address] [place] [address] Dr. Wesley Ashraf Platelet mean volume (Bld) [Entitic vol] 10.2 fL Normal 9.5-13.5 [facility] Comment on above: Performed By: #### B MP, CMADM #### [facility] [address] [place], [place] [address] Dr. Wesley Ashraf PLT 206 103/ul Normal 150-450 [facility] Comment on above: Performed By: #### B MP, CMADM #### [facility] [address] [place], [place] [address] Dr. Wesley Ashraf RBC 4.60 106/ul Critically low 4.70-6.10 [facility] Comment on above: Performed By: #### B MP, CMADM #### [facility] [address] [address] [address] Wesley Ashraf WBC 5.9 103/ul Normal 4.0-11.0 [facility] Comment on above: Performed By: #### B MP, CMADM #### [facility] [address] [address] [address] Wesley Ashraf Covid-19 PCR (CVDTBH)on SARS-CoV-2 (COVID-19) RNA JOHN+probe Ql (Unsp spec) Detected Critically abnormal NOT DETECTED [facility] Comment on above: Result Comment: This test is not yet approved or cleared by the [place] Food and Drug Administration (FDA). This test was developed by [employer] [place], [place]. The performance characteristics of this test were validated by [facility]. The results are not intended to be used as the sole means for clinical diagnosis or patient management decisions. [facility] is authorized under Clinical Laboratory Improvement Amendments [...] for this test is supported by the [employer] and Human Service's declaration that [...] longer be used). Performed By: #### B ERIC PAULSON #### [facility] [address] [place] [address] Dr. Wesley Ashraf D-DIMERon 04-13-2021 D-DIMER <0.19 Normal 0.19-0.50 [facility] Comment on above: Performed By: #### D DIM #### [facility] [address] [place] [address] Dr. Wesley Ashraf D-DIMER COMMENTS SEE BELOW Normal [facility] Comment on above: Result Comment: Incr eases [...] hospitalization. Performed By: #### D DIM #### [facility] [address] [place] [address] Dr. Wesley Ashraf INFLUENZA A AND B AGon 04-13 INFLUANEGH SEE BELOW Normal [facility] Comment on above: Result Comment: Nega tive for Flu A protein angiten. Infection due to Flu A cannot be ruled out. Flu A angiten in the sample may be below the detection limit of the test. Performed By: #### C MREP #### [facility] [address] [place] [address] Dr. Wesley Ashraf INFLUBNEGH SEE BELOW Normal [facility] Comment on above: Result Comment: Nega tive for Flu B protein antigen. Infection due to Flu B cannot be ruled out. Flu B antigen in the sample may be below the detection limit of the test. Performed By: #### C MREP #### [facility] [address] [place] [address] Dr. Wesley Ashraf INFLUENZA A AG Negative Normal NEGATIVE SEE COMMENT [facility] Comment on above: Performed By: #### C MREP #### [facility] [address] [address] [address] Wesley Ashraf INFLUENZA B AG Negative Normal NEGATIVE SEE COMMENT [facility] Comment on above: Performed By: #### C MREP #### [facility] [address] [address] [address] Wesley Ashraf INTERNAL CONTROLS Within Normal Limits Normal Wi thin Normal Limits [facility] Comment on above: Performed By: #### C MREP #### [facility] [address] [address] [address] Wesley Ashraf PROF CHEM 8 (BAS METB)on Anion gap [Moles/Vol] 14.6 mmol/L Normal [facility] Comment on above: Performed By: #### B KHURRAM, CMADM #### [facility] [address] [place] [address] Dr. Wesley Ashraf Calcium [Mass/Vol] 9.0 mg/dL Normal 8.4-10.2 [facility] Comment on above: Performed By: #### B KHURRAM, CMADM #### [facility] [address] [address] [address] Wesley Asharf Chloride [Moles/Vol] 101 mmol/L Normal 98-107 [facility] Comment on above: Performed By: #### B KHURRAM, CMADM #### [facility] [address] [place] [address] Dr. Wesley Ashraf CO2 [Moles/Vol] 25.2 mmol/L Normal 22.0-30.0 [facility] Comment on above: Performed By: #### B KHURRAM, CMADM #### [facility] [address] [address] [address] Wesley Ashraf Creatinine [Mass/Vol] 0.76 mg/dL Normal 0.66-1.25 [facility] Comment on above: Performed By: #### B KHURRAM, CMADM #### [facility] [address] [place] [address] Dr. Wesley Ashraf EGFR-AF VIETNAMESE >60 Normal >=60 [facility] Comment on above: Performed By: #### B KHURRAM, CMADM #### [facility] [address] [address] [address] Wesley Ashraf EGFR-NON AF VIETNAMESE >60 Normal >=60 [facility] Comment on above: Performed By: #### B KHURRAM, CMADM #### [facility] [address] [address] [address] Wesley Ashraf Glucose [Mass/Vol] 103 mg/dL Normal 74-106 [facility] Comment on above: Performed By: #### B KHURRAM, CMADM #### [facility] [address] [address] [address] Wesley Ashraf Potassium [Moles/Vol] 3.8 mmol/L Normal 3.4-5.0 [facility] Comment on above: Performed By: #### B KHURRAM, CMADM #### [facility] [address] [address] [address] Wesley Ashraf Sodium [Moles/Vol] 137 mmol/L Normal 137-145 [facility] Comment on above: Performed By: #### B KHURRAM, CMADM #### [facility] [address] [address] [address] Wesley Ashraf Urea nitrogen [Mass/Vol] 17.0 mg/dL Normal 9.0-20.0 [facility] Comment on above: Performed By: #### B KHURRAM, CMADM #### [facility] [address] [place] [address] Dr. Wesley Ashraf Urea nitrogen/Creatini ne [Mass ratio] 22.4 mg/mg Normal [facility] Comment on above: Performed By: #### B KHURRAM, CMADM #### [facility] [address] [address] [address] Wesley Ashraf XR CHEST 1 Von 04-13-2021 XR CHEST 1 V EXAM: XR CHEST 1 V HISTORY: SHORTNESS OF BREATH COMPARISON: 08/05/2019 TECHNIQUE: Portable AP chest 7:03 AM FINDINGS: Lungs are clear and heart size is normal. No pleural effusion or pneumothorax IMPRESSION: No acute findings Electronically authenticated by: CHRISTIANA HERNÁNDEZ Date: 2021-04-13 07:39 Normal [facility] Discharge Summaryon 11-13-19 18 Discharge Summary MR#: [id number] [facility] Pt[facility] Name: Ronnell Peres Admitted: 11/10/2017 Discharged: 11/11/2017 Date of : 1955 Physician: Andrew Braswell [facility]: Name unknown.PRINCIPAL PROBLEM:1. Acute ST-elevated MS.2. Tobacco abuse.3. Alcohol abuse.HOSPITAL COURSE: Mr. Peres is a 62-year-old gentleman with no pastmedical history and reports having not seen a family doctor physician inthe last 2 decades. He presented to the [facility] withcomplaints of acute onset of left-sided chest pain that radiated toshoulder and jaw, that was worse with exertion and was slightly responsiveto nitroglycerin. His EKG at that time showed ST elevations in lead I andaVL for which reason, he was urgently transferred to [facility] to undergopercutaneous intervention. The patient underwent coronary [...] 2:40 p.m.Discharge cardiac rehab phase 1: At [facility].3. Patient has been counselled on Smoking Cessation [...] Dict: 11/11/2017/05:08 P/Mulu Chen Trans: 11/12/2017 02:35 A/mmoDN_[id number] Normal [facility] CBC COMPLETE BLOOD COUNTon 0 11-11-2017 Erythrocyte distribution width Auto Ratio (RBC) 12.2 % Normal 11.5-15.0 [facility] Comment on above: Order Comment: Unkno wn Performed By: #### 5 0608 ####[facility]3000 [facility].[address] Erythrocytes (RBC) 4.18 10*6/uL Low 4.20-5.70 [facility] Comment on above: Order Comment: Unkno wn Performed By: #### 5 0608 ####[facility] Hematocrit (HCT) 35.5 % Low 39.0-50.0 [facility] Comment on above: Order Comment: Unkno wn Performed By: #### 5 0608 ####[facility] Hemoglobin mass conc (Bld) 12.5 g/dL Low 13.0-17.0 [facility] Comment on above: Order Comment: Unkno wn Performed By: #### 5 0608 ####[facility] MCH 29.9 pg Normal 27.0-33.0 [facility] Comment on above: Order Comment: Unkno wn Performed By: #### 5 0608 ####[facility] MCHC mass conc (RBC) 35.2 g/dL High 32.0-35.0 [facility] Comment on above: Order Comment: Unkno wn Performed By: #### 5 0608 ####[facility] MCV 84.9 fL Normal 82.0-98.0 [facility] Comment on above: Order Comment: Unkno wn Performed By: #### 5 0608 ####[facility] NRBC 0 % Normal 0-0 [facility] Comment on above: Order Comment: Unkno wn Performed By: #### 5 0608 ####[facility] PLAT CNT 240 10*3/uL Normal 150-400 [facility] Comment on above: Order Comment: Unkno wn Performed By: #### 5 0608 ####[place] [id number] [address] WBC (Leukocytes) 9.79 10*3/uL Normal 4.00-10.60 [facility] Comment on above: Order Comment: Unkno wn Performed By: #### 5 0608 ####[facility] [place] [address] COMP METABOLIC PANELon 11-11 Alanine aminotransferase (ALT) 18 U/L Normal 7-52 [facility] Comment on above: Order Comment: Yes: Add to Previous draw if able Performed By: #### 4 6413, 45052, 16908, 64226, 72210 ####[facility] Albumin 3.7 g/dL Normal 3.5-5.7 [facility] Comment on above: Order Comment: Yes: Add to Previous draw if able Performed By: #### 4 6413, 90133, 09315, 49631, 70604 ####[facility] ALKALINE PHOSPH 44 IU/L Normal 34-104 [facility] Comment on above: Order Comment: Yes: Add to Previous draw if able Performed By: #### 4 6413, 21073, 81578, 69584, 92084 ####[facility] [place] [address], [facility] Aspartate aminotransferase (AST) 32 U/L Normal 13-39 [facility] Comment on above: Order Comment: Yes: Add to Previous draw if able Performed By: #### 4 6413, 06650, 06802, 93636, 29972 ####[facility] [place] [address], [facility] Bilirubin (total) 0.6 mg/dL Normal 0.3-1.0 [facility] Comment on above: Order Comment: Yes: Add to Previous draw if able Performed By: #### 4 6413, 15439, 32339, 83899, 50494 ####[facility] [place] [address], [facility] Calcium 8.8 mg/dL Normal 8.6-10.3 [facility] Comment on above: Order Comment: Yes: Add to Previous draw if able Performed By: #### 4 6413, 79747, 33710, 31562, 67911 ####[facility] [place] [address], [place] Chloride 106 mmol/L Normal 98-107 [facility] Comment on above: Order Comment: Yes: Add to Previous draw if able Performed By: #### 4 6413, 86422, 62723, 14131, 81651 ####[facility] [place] [address], [place] CO2 26 mmol/L Normal 21-31 [facility] Comment on above: Order Comment: Yes: Add to Previous draw if able Performed By: #### 4 6413, 47590, 64563, 97203, 23201 ####[facility] [place] [address], [place] Creatinine 0.70 mg/dL Normal 0.70-1.30 [facility] Comment on above: Order Comment: Yes: Add to Previous draw if able Performed By: #### 4 6413, 41908, 57819, 80398, 11574 ####[facility] eGFR (black) mL/min/{1.73_m2} Normal >60 [facility] Comment on above: Order Comment: Yes: Add to Previous draw if able Performed By: #### 4 6413, 19394, 79080, 75816, 49650 ####[facility] eGFR (non-black) mL/min/{1.73_m2} Normal >60 [facility] Comment on above: Order Comment: Yes: Add to Previous draw if able Performed By: #### 4 6413, 71363, 81043, 69560, 60277 ####[facility] Glucose mass conc 90 mg/dL Normal 70-100 [facility] Comment on above: Order Comment: Yes: Add to Previous draw if able Performed By: #### 4 6413, 70928, 37649, 88653, 90992 ####[facility] [place] [address], [facility] Potassium molar conc 3.5 mmol/L Normal 3.5-5.1 [facility] Comment on above: Order Comment: Yes: Add to Previous draw if able Performed By: #### 4 6413, 65168, 38838, 03536, 24010 ####[facility] [place] [address], [facility] Protein 6.2 g/dL Normal 6.0-8.3 [facility] Comment on above: Order Comment: Yes: Add to Previous draw if able Performed By: #### 4 6413, 54904, 83351, 60544, 21831 ####[facility] [place] [address], [facility] Sodium 134 mmol/L Low 136-145 [facility] Comment on above: Order Comment: Yes: Add to Previous draw if able Performed By: #### 4 6413, 30567, 64837, 54126, 85475 ####[facility] Urea nitrogen 12 mg/dL Normal 7-25 [facility] Comment on above: Order Comment: Yes: Add to Previous draw if able Performed By: #### 4 6413, 45879, 95897, 34534, 45248 ####[facility] [place] [address], [facility] MAGNESIUM BLOODon 11-11-2017 Magnesium 1.8 mg/dL Low 1.9-2.7 [facility] Comment on above: Order Comment: Yes: Add to Previous draw if able Performed By: #### 4 6413, 06276, 22359, 38295, 56178 ####[facility] PHOSPHORUS BLOODon 8 Phosphate 2.7 mg/dL Normal 2.5-5.0 [facility] Comment on above: Order Comment: Yes: Add to Previous draw if able Performed By: #### 4 6413, 66849, 34203, 20972, 81615 ####[facility] [place] [address], [facility] TROPONIN-Ion 11-11-2017 Troponin I.cardiac mass conc 1.65 ng/mL Critically high 0.00-0.04 [facility] Comment on above: Order Comment: Yes: Add to Previous draw if able Result Comment: REFE RENCE RANGES: 0.00 - 0.04 ng/ml NORMAL 0.05 - 0.50 ng/ml INDETERMINATE > 0.50 ng/ml CONSISTENT WITH AN M.I. Performed By: #### 4 6413, 03585, 39502, 08137, 15915 ####[facility] CBC COMPLETE BLOOD COUNTon 0 7-03-2018 Erythrocyte distribution width Auto Ratio (RBC) 12.2 % Normal 11.5-15.0 [facility] Comment on above: Order Comment: No: D o not add to previous draw Performed By: #### 5 0608 ####[facility] Erythrocytes (RBC) 4.15 10*6/uL Low 4.20-5.70 [facility] Comment on above: Order Comment: No: D o not add to previous draw Performed By: #### 5 0608 ####[facility] Hematocrit (HCT) 35.8 % Low 39.0-50.0 [facility] Comment on above: Order Comment: No: D o not add to previous draw Performed By: #### 5 0608 ####[facility] Hemoglobin mass conc (Bld) 12.8 g/dL Low 13.0-17.0 [facility] Comment on above: Order Comment: No: D o not add to previous draw Performed By: #### 5 0608 ####[facility]3000 [facility].[address] MCH 30.8 pg Normal 27.0-33.0 [facility] Comment on above: Order Comment: No: D o not add to previous draw Performed By: #### 5 0608 ####[facility] MCHC mass conc (RBC) 35.8 g/dL High 32.0-35.0 [facility] Comment on above: Order Comment: No: D o not add to previous draw Performed By: #### 5 0608 ####[facility] MCV 86.3 fL Normal 82.0-98.0 [facility] Comment on above: Order Comment: No: D o not add to previous draw Performed By: #### 5 0608 ####[facility] NRBC 0 % Normal 0-0 [facility] Comment on above: Order Comment: No: D o not add to previous draw Performed By: #### 5 0608 ####[facility] PLAT CNT 253 10*3/uL Normal 150-400 [facility] Comment on above: Order Comment: No: D o not add to previous draw Performed By: #### 5 0608 ####[facility] WBC (Leukocytes) 8.74 10*3/uL Normal 4.00-10.60 [facility] Comment on above: Order Comment: No: D o not add to previous draw Performed By: #### 5 0608 ####[facility] COMP METABOLIC PANELon 11-10 Alanine aminotransferase (ALT) 16 U/L Normal 7-52 [facility] Comment on above: Order Comment: No: D o not add to previous draw Performed By: #### 4 6413, 47958, 85983, 27739, 55402 ####[facility] Albumin 3.8 g/dL Normal 3.5-5.7 [facility] Comment on above: Order Comment: No: D o not add to previous draw Performed By: #### 4 6413, 04510, 24563, 56001, 03523 ####[facility] ALKALINE PHOSPH 58 IU/L Normal 34-104 [facility] Comment on above: Order Comment: No: D o not add to previous draw Performed By: #### 4 6413, 95025, 77989, 29714, 63594 ####[facility] [place] [address], [place] Aspartate aminotransferase (AST) 30 U/L Normal 13-39 [facility] Comment on above: Order Comment: No: D o not add to previous draw Performed By: #### 4 6413, 52040, 50850, 95789, 22017 ####[facility] [place] [address], [place] Bilirubin (total) 0.4 mg/dL Normal 0.3-1.0 [facility] Comment on above: Order Comment: No: D o not add to previous draw Performed By: #### 4 6413, 36649, 84603, 07710, 91993 ####[facility] [place] [address], [place] Calcium 8.8 mg/dL Normal 8.6-10.3 [facility] Comment on above: Order Comment: No: D o not add to previous draw Performed By: #### 4 6413, 64140, 16852, 23241, 41535 ####[facility] [place] [address], [place] Chloride 106 mmol/L Normal 98-107 [facility] Comment on above: Order Comment: No: D o not add to previous draw Performed By: #### 4 6413, 04713, 84009, 34715, 99176 ####[facility] [place] [address], [place] CO2 23 mmol/L Normal 21-31 [facility] Comment on above: Order Comment: No: D o not add to previous draw Performed By: #### 4 6413, 07271, 53349, 80967, 24464 ####[facility] [place] [address], [place] Creatinine 1.03 mg/dL Normal 0.70-1.30 [facility] Comment on above: Order Comment: No: D o not add to previous draw Performed By: #### 4 6413, 21088, 46934, 42821, 09729 ####[facility], [place] [address] [place] [address] eGFR (black) mL/min/{1.73_m2} Normal >60 [facility] Comment on above: Order Comment: No: D o not add to previous draw Performed By: #### 4 6413, 18126, 37816, 67546, 64032 ####[facility] eGFR (non-black) mL/min/{1.73_m2} Normal >60 [facility] Comment on above: Order Comment: No: D o not add to previous draw Performed By: #### 4 6413, 56504, 09540, 49499, 37692 ####[facility] [place] [address], [facility] Glucose mass conc 98 mg/dL Normal 70-100 [facility] Comment on above: Order Comment: No: D o not add to previous draw Performed By: #### 4 6413, 42591, 37480, 40252, 19096 ####[facility] [place] [address], [facility] Potassium molar conc 4.0 mmol/L Normal 3.5-5.1 [facility] Comment on above: Order Comment: No: D o not add to previous draw Performed By: #### 4 6413, 00203, 41581, 74974, 61123 ####[facility] [place] [address], [facility] Protein 6.3 g/dL Normal 6.0-8.3 [facility] Comment on above: Order Comment: No: D o not add to previous draw Performed By: #### 4 6413, 24820, 98966, 52870, 52459 ####[facility] Sodium 135 mmol/L Low 136-145 [facility] Comment on above: Order Comment: No: D o not add to previous draw Performed By: #### 4 6413, 43263, 00249, 45326, 34842 ####[facility] [place], [place] [address] [place] [address] Urea nitrogen 16 mg/dL Normal 7-25 [facility] Comment on above: Order Comment: No: D o not add to previous draw Performed By: #### 4 6413, 53330, 11215, 86025, 29495 ####[facility] Cardiovascular Lab Reporton 11-10-2017 Cardiovascular Lab Report [facility] Patient Name: Ronnell Peres [facility] MR #: [id number] Physician: Michelle Mohan M.D.Medicine Service Date: 11/10/2017Division of Birthdate: 4Cardiology Room #: 3AB [id number] [facility]Services[facility] [place] [address]Phone Fax Cardiovascular Laboratory ReportINDICATION: The patient is a 62-year-[facility], [facility] hour prior topresentation. His EKG showed ST elevations in the lateral leads with STdepressions in the inferior leads. He was rushed by [facility] to [facility] for emergency coronary intervention. He was [...] theprocedure. The patient was brought to our veterinarian laboratory animal care. The right groin areawas prepped and draped in usual fashion. Using micropuncture technique,the right common femoral artery was accessed and the access was upsized toa 6-Hungarian x 11 cm sheath. ACT was measured and additional heparin wasgiven and therapeutic ACT confirmed during the rest of the procedure.A 6-Hungarian XB 3.5 guiding catheter was advanced and used to engage the leftmain coronary ostium. Angiography of the left coronary system wasperformed in multiple views. A [place] wire was advanced into the distalfirst diagonal branch. Balloon angioplasty was performed using an Emerge2.5 x 12 mm balloon inflated at 6 atmospheres in the first diagonal branch.Angiography revealed suboptimal results. This was treated using deploymentof a Synergy 2.5 x 16 mm drug-eluting stent deployed at 11 atmospheres andpost dilated using [place] Quantum Milbridge 2.5 x 12 mm noncompliant ballooninflated at 18 atmospheres throughout the length of the stent repeatedly.Angiography after administration of intracoronary nitroglycerin showedexcellent result with reduction of the stenosis in the diagonal branch to0%. No evidence of dissection or perforation and WYATT-3 flow in the leftcoronary system. The guiding catheter was removed. A 6-Hungarian VW5rjykajnwms catheter was advanced and used to engage the right coronaryostium. Angiography of the right coronary artery was performed in multipleviews. The catheter was retracted to the aortic root and non-selectiveinjection was performed in the right coronary cusp. The catheter wasremoved. Limited right femoral angiography was performed in multipleviews. The right femoral arteriotomy was managed with a 2-OfnlwdRapja-Bsne device with good hemostasis. The patient was [...] that major diagonal branch has a mid yundbfi70% thrombotic stenosis. This was reduced to 0% [...] 11/10/2017/02:41 A/Michelle Pulliam M.D.Date Trans: 11/10/2017 04:12 A/reynaldooDN_[id number] Normal [facility] HEMOGLOBIN A1Con 11-10-2017 Glucose mass conc 100 mg/dL Normal 70-126 [facility] Comment on above: Order Comment: Yes: Add to Previous draw if able Performed By: #### 4 6447 ####[facility] Hemoglobin A1c/Hemoglobin.to noe mass fraction (Bld) 5.1 % Normal 4.0-6.0 [facility] Comment on above: Order Comment: Yes: Add to Previous draw if able Performed By: #### 4 6447 ####[facility]3000 [facility].[address] History and Physicalon 11-10 History and Physical MR#: [id number] Name: Ronnell Peres Admitted: 11/10/2017 Date of : 1955 Attending Physician: Mansi Brooks M.D. Room #: 3AB [id number] Discharge Date: HISTORY AND PHYSICALCHIEF COMPLAINT: Chest pain.HISTORY OF PRESENT ILLNESS: The patient is a 62-year-old gentleman with apast medical history of kidney stones, who presented to the ER at [facility] with severe midsternal chest pain that started 1-hour prior toarrival. The patient was asleep and the pain woke him up from the sleep.The patient also had diaphoresis. He also felt short of breath and dizzy.He denied any syncopal episodes. He also complained of feeling weak. Thepatient had E[facility] done [facility] the [facility] and it showed ST elevationin lead I and aVL and V1. The patient's chest x-ray was negative. Thepatient was life flighted to the [facility] for a stat cardiac cath. before that,he [...] any druguse. 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 He lives with his .FAMILY HISTORY: Positive [...] affect normal.LABS: We only had CBC from [facility] and it shows white blood cells 9.3,hemoglobin 13.7, hematocrit 37.7 and platelets 281. EKG in the [facility] ER shows ST elevation in lead I, aVL and V1 and ST depression inlead II and aVF. Chest x-ray was done as well and did not show anyinfiltrates. The labs here at [facility] are still pending.ASSESSMENT: ST elevation myocardial infarction, coronary artery disease,heavy smoker, alcohol abuse and history of kidney stones.PLAN: The patient is admitted to ICU for post cardiac catheterizationcare. Cardiology follows. Per their recommendations, the patient will bestarted on aspirin 81 mg daily and Plavix 75 mg daily. He already got 600mg bolus of Plavix in the veterinarian laboratory animal care. The patient will also be takingmetoprolol 25 [...] 11/10/2017/04:17 A/Mansi Brooks M.D.Date Trans: 11/10/2017 05:07 A/Smiley_[id number] Normal [facility] LIPID PROFILEon 11-10-2017 Cholesterol 201 mg/dL High 120-200 [facility] Comment on above: Order Comment: Yes: Add to Previous draw if able Result Comment: CHOL ESTEROL REFERENCE RANGE:20 YEARS AND OLDER CARDIOVASCULAR RISKLess than 200 mg/dl Low Nvjq560 to 239 mg/dl Borderline Yrbe575 mg/dl and greater High Risk Performed By: #### 4 6413, 37985, 47272, 49022, 29478 ####[facility] [facility] [address], [facility] Cholesterol to HDL Ratio 4.9 {ratio} High .0-4.5 [facility] Comment on above: Order Comment: Yes: Add to Previous draw if able Performed By: #### 4 6413, 06144, 59376, 15165, 83604 ####[facility] [place] [address], [facility] HDL Cholesterol 41 mg/dL Normal 23-92 [facility] Comment on above: Order Comment: Yes: Add to Previous draw if able Result Comment: Slig ht variation in normal range could be due to gender and/or age.HDL CHOLESTEROL REFERENCE RANGE:20 years and older Cardiovascular Risk> or =60 mg/dL Iejbswmqf78 TO 59 mg/dL Low Risk<40 mg/dL High Risk Performed By: #### 4 6413, 51971, 93042, 05995, 65160 ####[facility] LDL Cholesterol 12 mg/dL Normal 0-130 [facility] Comment on above: Order Comment: Yes: Add to Previous draw if able Result Comment: LDL IS A CALCULATIONLDL IS ONLY VALID IF THE TRIG IS LESS THAN 400. Performed By: #### 4 6413, 89873, 56480, 81740, 70455 ####[facility] NON-HDL CHOLESTEROL 160 mg/dL Normal [facility] Comment on above: Order Comment: Yes: Add to Previous draw if able Performed By: #### 4 6413, 89782, 44922, 20919, 12160 ####[facility] [place] [address], [facility] Triglyceride 740 mg/dL High 40-149 [facility] Comment on above: Order Comment: Yes: Add to Previous draw if able Result Comment: TRIG LYCERIDE REFERENCE RANGE:20 YEARS AND OLDER CARDIOVASCULAR RISKLESS THAN 150 mg/dl LOW [id number] TO 199 mg/dl BORDERLINE [id number] mg/dl AND GREATER HIGH RISK Performed By: #### 4 6413, 75013, 24526, 42229, 34340 ####[facility] [place] [address], [facility] VLDL CHOL 148 mg/dL High 0-40 [facility] Comment on above: Order Comment: Yes: Add to Previous draw if able Performed By: #### 4 6413, 59495, 95860, 26738, 16051 ####[facility] MAGNESIUM BLOODon 11-10-2017 Magnesium 2.0 mg/dL Normal 1.9-2.7 [facility] Comment on above: Order Comment: No: D o not add to previous draw Performed By: #### 4 6413, 62725, 07581, 47565, 47114 ####[facility] [place] [address], [facility] PHOSPHORUS BLOODon 8 Phosphate 3.5 mg/dL Normal 2.5-5.0 [facility] Comment on above: Order Comment: No: D o not add to previous draw Performed By: #### 4 6413, 19862, 66016, 15252, 13206 ####[facility] PROTHROMBIN TIMEon 8 INR Coag RelTime (PPP) 1.07 {INR} Normal 0.91-1.16 [facility] Comment on above: Order Comment: Yes: [...] OF ACTION, CLINICALEFFECTIVENESS, AND OPTIMAL THERAPEUTIC RANGE. [id number];108:231S-246S. Performed By: #### 5 9181 ####[facility]3000 [facility].[address] Prothrombin time (PT) Coag time (PPP) 13.9 s Normal 12.3-14.8 [facility] Comment on above: Order Comment: Yes: Add to Previous draw if able Result Comment: ALL RESULTS MUST BE INTERPRETED WITH RESPECT TO BLOOD DRAWING ARTIFACTOR DILUTION ERROR OF ANTICOAGULANT AT THE TIME OF SAMPLING. Performed By: #### 5 6101 ####[facility] TROPONIN-Ion 11-10-2017 Troponin I.cardiac mass conc 2.25 ng/mL Critically high 0.00-0.04 [facility] Comment on above: Result Comment: M-CR ITICAL RESULT(S) REVIEWED, CALLED TO AND READ BACK BY SANTOS HADLEY @ 1122REFERENCE RANGES: 0.00 - 0.04 ng/ml NORMAL 0.05 - 0.50 ng/ml INDETERMINATE > 0.50 ng/ml CONSISTENT WITH AN M.I. Performed By: #### 4 6413, 18018, 85254, 74119, 07680 ####[facility] Vital Signs Date Time Vital Sign Value Performing Clinician Facility 03-30-2024 [id number] Body height 167.6 cm Portillo Ludwig MD Work Phone: [facility] 03-30-2024 09:11-0500 Body mass index (BMI) [Ratio] 23.89 kg/m2 Portillo Ludwig MD Work Phone: [facility] 03-30-2024 09:11-0500 Body weight 67.13 kg Portillo Ludwig MD Work Phone: [facility] 03-30-2024 09:11-0500 Diastolic blood pressure 77 mm[Hg] Portillo Ludwig MD Work Phone: [facility] 03-30-2024 09:11-0500 Systolic blood pressure 122 mm[Hg] Portillo Ludwig MD Work Phone: [facility] 07-17-2023 14:48-0500 Blood Pressure Location Aaron KELSEY [facility] 07-17-2023 14:48-0500 Diastolic blood pressure 64 mm[Hg] Aaron TRISTANL [facility] 07-17-2023 14:48-0500 Heart rate 64 /min Aaron TRISTANL [facility] 07-17-2023 14:48-0500 Respiratory rate 16 /min Aaron TRISTANL [facility] 07-17-2023 14:48-0500 Systolic blood pressure 116 mm[Hg] Aaron TRISTANL [facility] 06-17-2023 10:53-0500 Body height 167.6 cm Portillo Ludwig MD Work Phone: [facility] 06-17-2023 10:53-0500 Body mass index (BMI) [Ratio] 23.89 kg/m2 Portillo Ludwig MD Work Phone: [facility] 06-17-2023 10:53-0500 Body weight 67.13 kg Portillo Ludwig MD Work Phone: [facility] 06-17-2023 10:53-0500 Diastolic blood pressure 92 mm[Hg] Portillo Ludwig MD Work Phone: [facility] 06-17-2023 10:53-0500 Systolic blood pressure 145 mm[Hg] Portillo Ludwig MD Work Phone: [facility] 02-19-2023 13:16-0400 Heart rate 76 /min Portillo Ludwig [facility] 02-19-2023 13:16-0400 SaO2% (BldA) [Mass fraction] 94 % Portillo Ludwig [facility] 02-19-2023 13:16-0400 Respiratory rate 16 /min Portillo Timmis [facility] 02-19-2023 13:15-0400 Blood Pressure Location Portillo Timmis [facility] 02-19-2023 13:15-0400 Diastolic blood pressure 68 mm[Hg] Portillo Timmis [facility] 02-19-2023 13:15-0400 Mean blood pressure 82 mm[Hg] Portillo Timmis [facility] 02-19-2023 13:15-0400 Systolic blood pressure 110 mm[Hg] Portillo Timmis [facility] 02-19-2023 13:15-0400 Body temperature 97.7 [degF] Portillo Timmis [facility] 02-19-2023 12:32-0400 Heart rate 69 /min Portillo Timmis [facility] 02-19-2023 12:32-0400 SaO2% (BldA) [Mass fraction] 95 % Portillo Timmis [facility] 02-19-2023 12:31-0400 Diastolic blood pressure 69 mm[Hg] Portillo Timmis [facility] 02-19-2023 12:31-0400 Mean blood pressure 82 mm[Hg] Portillo Timmis [facility] 02-19-2023 12:31-0400 Systolic blood pressure 108 mm[Hg] Portillo Timmis [facility] 02-19-2023 12:31-0400 Respiratory rate 14 /min Portillo Timmis [facility] 02-19-2023 12:25-0400 Blood Pressure Location Portillo Timmis [facility] 02-19-2023 12:25-0400 Body temperature 97.88 [degF] Portillo Timmis [facility] 02-19-2023 12:25-0400 Diastolic blood pressure 75 mm[Hg] Portillo Timmis [facility] 02-19-2023 12:25-0400 Heart rate 72 /min Portillo Timmis [facility] 02-19-2023 12:25-0400 Mean blood pressure 85 mm[Hg] Portillo Timmis [facility] 02-19-2023 12:25-0400 Respiratory rate 22 /min Portillo Timmis [facility] 02-19-2023 12:25-0400 SaO2% (BldA) [Mass fraction] 95 % Portillo Timmis [facility] 02-19-2023 12:25-0400 Systolic blood pressure 106 mm[Hg] Portillo Timmis [facility] 02-19-2023 12:10-0400 Blood Pressure Location Portillo Timmis [facility] 02-19-2023 12:10-0400 Mean blood pressure 90 mm[Hg] Portillo Timmis [facility] 02-19-2023 12:10-0400 Respiratory rate 24 /min Portillo Timmis [facility] 02-19-2023 12:05-0400 Mean blood pressure 86 mm[Hg] Portillo Timmis [facility] 02-19-2023 12:05-0400 Respiratory rate 25 /min Portillo Timmis [facility] 02-19-2023 11:58-0400 Body temperature 98.06 [degF] Portillo Timmis [facility] 02-19-2023 11:55-0400 FIO2 100 % Portillo Timmis [facility] 02-19-2023 11:55-0400 Respiratory rate 13 /min Portillo Timmis [facility] 02-19-2023 11:50-0400 FIO2 100 % Portillo Timmis [facility] 02-19-2023 11:45-0400 FIO2 60 % Portillo Timmis [facility] 02-19-2023 09:13-0400 Heart rate 80 /min Portillo Timmis [facility] 02-19-2023 09:03-0400 Mean blood pressure 102 mm[Hg] Portillo Timmis [facility] 02-19-2023 09:01-0400 Body temperature 97.16 [degF] Portillo Timmis [facility] 01-25-2023 11:09-0400 Body temperature 97.59 [degF] Dylan [facility]idi MD [facility] 01-25-2023 11:09-0400 Diastolic blood pressure 91 mm[Hg] Dylan Zaidi MD Work Phone: [facility] 01-25-2023 11:09-0400 Heart rate 70 /min Dylan Zaidi MD Work Phone: [facility] 01-25-2023 11:09-0400 Respiratory rate 16 /min Dylan Zaidi MD Work Phone: [facility] [employer] 01-25-2023 11:09-0400 SaO2% (BldA) [Mass fraction] 96 % Dylan Zaidi MD Work Phone: [facility] 01-25-2023 11:09-0400 Systolic blood pressure 155 mm[Hg] Dylan Zaidi MD Work Phone: [facility] 10-22-2022 14:01-0400 Blood Pressure Location Aaron NILL [facility] [place] 10-22-2022 14:01-0400 Diastolic blood pressure 64 mm[Hg] Aaron NILL [facility] [place] 10-22-2022 14:01-0400 Heart rate 80 /min Aaron NILL [facility] [place] 10-22-2022 14:01-0400 Respiratory rate 16 /min Aaron NILL [facility] [place] 10-22-2022 14:01-0400 Systolic blood pressure 116 mm[Hg] Aaron NILL [facility] [place] 01-21-2022 15:43-0400 Blood Pressure Location Aaron NILL [facility] [place] 01-21-2022 15:43-0400 Diastolic blood pressure 88 mm[Hg] Aaron NILL [facility] [place] 01-21-2022 15:43-0400 Heart rate 72 /min Aaron NILL [facility] [place] 01-21-2022 15:43-0400 Respiratory rate 16 /min Aaron NILL [facility] [place] 01-21-2022 15:43-0400 Systolic blood pressure 132 mm[Hg] Aaron NILL [facility] [place] 11-08-2021 14:46-0400 Blood Pressure Location Aaron NILL [facility] 11-08-2021 14:46-0400 Diastolic blood pressure 86 mm[Hg] Aaron NILL [facility] [place] 11-08-2021 14:46-0400 Heart rate 76 /min Aaron KELSEY [facility] 11-08-2021 14:46-0400 Respiratory rate 16 /min Aaron KELSEY [facility] 11-08-2021 14:46-0400 Systolic blood pressure 142 mm[Hg] Aaron KELSEY [facility] 07-11-2021 11:45-0500 Heart rate 78 /min David Robbins [employer] 07-11-2021 11:45-0500 Respiratory rate 16 /min Davidjoseph Robbins [facility] [employer] 07-11-2021 11:40-0500 Diastolic blood pressure 76 mm[Hg] David Robbins [facility] [employer] 07-11-2021 11:40-0500 SaO2% (BldA) [Mass fraction] 95 % Davidjoseph Robbins [facility] [employer] 07-11-2021 11:40-0500 Systolic blood pressure 125 mm[Hg] Davidjoseph Robbins [facility] 07-11-2021 07:29-0500 Body temperature 97.59 [degF] Davidjoseph Robbins [facility] 07-10-2021 08:53-0500 Body height 167.6 cm Abdiel [facility]ff [facility] 07-10-2021 07:08-0500 Body temperature 97.59 [degF] Abdiel Neff [facility] 07-10-2021 07:08-0500 Diastolic blood pressure 78 mm[Hg] Abdiel Neff [facility] 07-10-2021 07:08-0500 Heart rate 65 /min Abdiel Neff MD Work Phone: [employer] 07-10-2021 07:08-0500 Respiratory rate 20 /min Abdiel Neff MD Work Phone: [facility] 07-10-2021 07:08-0500 SaO2% (BldA) [Mass fraction] 94 % Abdiel Neff MD Work Phone: [facility] 07-10-2021 07:08-0500 Systolic blood pressure 115 mm[Hg] Abdiel Neff MD Work Phone: [facility] 07-05-2021 11:40-0500 Body mass index (BMI) [Ratio] 21.79 kg/m2 Abdiel Neff MD Work Phone: [facility] 07-05-2021 11:40-0500 Body weight 61.24 kg Abdiel Neff MD Work Phone: [facility] Encounters Encounter Date Encounter Type Care Provider Facility Start: 12-19-2024 End: 12-19-2024 ambulatory [facility] Start: 08-29-2024 End: 08-31-2024 ambulatory CHANDLER DEAN [facility] Start: 08-29-2024 End: 08-31-2024 Subsequent hospital visit by physician Svetlana Austin Dr Room 2 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 Start: 09-02-2023 End: 09-02-2023 ambulatory Aaron R Nill Facility:[facility] Start: 09-02-2023 End: 09-03-2023 ambulatory Aaron R NILKrista [facility] Work Phone: Start: 09-02-2023 End: 09-02-2023 Departed Referred MD Aaron Kelsey Work Phone: [facility] Start: 07-17-2023 End: 07-18-2023 ambulatory Aaron R NILL Facility: [facility] Start: 07-17-2023 End: 07-17-2023 Patient encounter procedure Aaron TRISTANL [facility] Nill[facility] [place] Start: 06-17-2023 End: 06-17-2023 Office outpatient visit 15 minutes Portillo Ludwig MD Work Phone: [facility] Comment on above: 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); Left-sided tinnitus Start: 06-17-2023 End: 06-17-2023 ambulatory PORTILLO LUDWIG Not Available Start: 06-10-2023 End: 06-10-2023 ambulatory AALIYAH ABRAHAM Not Available Start: 04-08-2023 End: 04-08-2023 ambulatory PORTILLO LUDWIG Not Available Start: 02-19-2023 End: 02-19-2023 ambulatory Portillo Valencias Facility:[facility] Start: 02-19-2023 End: 02-19-2023 Admission to same day surgery center Portillo Ludwig [facility] Start: 02-17-2023 End: 02-18-2023 ambulatory Portillo Ludwig Facility:[facility] Start: 01-25-2023 End: 01-25-2023 Emergency department patient visit Dylan Zaidi MD Work Phone: [facility] Comment on above: Intermittent chest p ain (Primary Dx); History of epistaxis Start: 10-22-2022 End: 10-23-2022 ambulatory Aaron R NILL Facility: [place] Start: 10-22-2022 End: 10-22-2022 Patient encounter procedure Aaron White NILL [facility] Nill[facility] [place] Start: 02-20-2022 End: 02-22-2022 Subsequent hospital visit by physician Dylan Zaidi MD Work Phone: [facility] Start: 01-21-2022 End: 01-21-2022 Patient encounter procedure Aaron R NILL [facility] Start: 12-18-2021 End: 12-19-2021 ambulatory MOHAMAD ALGHOTHANI Facility:[facility] Start: 12-16-2021 End: 12-17-2021 ambulatory MOHAMAD ALGHOTHANI Facility:[facility] Start: 11-08-2021 End: 11-08-2021 Patient encounter procedure Aaron R NILL [facility] Start: 08-20-2021 End: 08-22-2021 Subsequent hospital visit by physician Svetlana Austin Dr Room 4 [facility] Comment on above: Ureteral stone Start: 07-29-2021 End: 07-31-2021 Subsequent hospital visit by physician [facility] Cat Scan Room [facility] Comment on above: Renal colic; LLQ pain; Incomplete bladder emptying Start: 07-18-2021 End: 07-18-[address] SUSAN BOYLE Facility:[facility] Start: 07-16-2021 End: 07-16-2021 Subsequent hospital visit by physician Dylan Zaidi MD Work Phone: [facility] Comment on above: Ureteral stone; Nausea; Decreased appetite Start: 07-11-2021 End: 07-11-2021 Emergency department patient visit Davidjoseph Robbins [facility] ED Comment on above: Left lower quadrant abdominal pain (Primary Dx); Urinary tract infection with hematuria, site unspecified; Ureteral calculus Start: 07-09-2021 End: 07-10-2021 Subsequent hospital visit by physician Abdiel Neff MD Work Phone: [facility] Start: 07-05-2021 End: 07-09-2021 Patient encounter status Mth Schedule [facility] PRE ADMIT Start: 07-05-2021 End: 07-09-2021 Subsequent hospital visit by physician [facility] Gersonid19 Pat Screening Schedule [facility] Comment on above: Preop testing Start: 06-25-2021 End: 06-26-2021 ambulatory HARISH Emanuel Facility:[facility] Start: 06-22-2021 End: 06-23-2021 ambulatory WARNER TRIPP Facility:[facility] Start: 05-23-2021 End: 05-24-2021 ambulatory NELLY WALTERS Facility:[facility] Start: 04-19-2021 End: 04-19-2021 ambulatory NELLY WALTERS Facility:[facility] Start: 04-13-2021 End: 04-13-[address] DYLAN ZAIDI Facility:[facility] Start: 01-02-2021 ambulatory DONN CROWELL Facility:[facility] Start: 11-17-2017 End: 11-18-2017 Patient encounter DEFAULT PHYSICIAN Facility:[facility] Start: 11-10-2017 End: 11-11-2017 Evaluation and management of inpatient DONN Ortiz MARKER Facility:[facility] Procedures Date Procedure Procedure Detail Performing Clinician Start: 08-29-2024 Radiologic exam abdo men 1 view Chandler D Jermaine AUSTIN Work Phone: Start: 08-29-2024 PSA screening Chandler Mohr Do lazo PA-C Work Phone: Start: 09-02-2023 Repair of left ingui nal hernia Aaron KELSEY Start: 02-19-2023 Nasal cautery Portillo Ti mmis Start: 01-25-2023 Comprehensive metabo lic panel Jermain SAAVEDRAC Work Phone: Start: 01-25-2023 Ecg routine ecg w/le ast 12 lds w/i&r Jermain PEREZ-C Work Phone: Start: 01-25-2023 Radiologic exam ches t single view Jermain PEREZ-Jose Alejandro Work Phone: Start: 08-20-2021 Radiologic exam abdo men 1 view Dolly W Parsell FIRST AID NURSE - PLAYGROUND ATTENDANT Work Phone: Start: 07-29-2021 Ct abdomen & pelvis w/o contrast material Dolly Julio Cesar Parsell FIRST AID NURSE - PLAYGROUND ATTENDANT Work Phone: Start: 07-29-2021 Basic metabolic pane l calcium total Dolly Julio Cesar Parsell FIRST AID NURSE - PLAYGROUND ATTENDANT Work Phone: Start: 07-16-2021 Basic metabolic pane l calcium total Dolly Julio Cesar Parsell FIRST AID NURSE - PLAYGROUND ATTENDANT Work Phone: Start: 07-11-2021 Ct abdomen & pelvis w/o contrast material David Lynchbeckyimelda DO Start: 07-11-2021 Urinalysis microscopic only David Lynchpaige DO Start: 07-11-2021 Urnls dip stick/tabl et rgnt auto w/o microscopy David Rosendo DO Start: 07-11-2021 BASIC METABOLIC PANE L W/ REFLEX TO MG FOR LOW K David Rosendo DO Start: 07-11-2021 Blood count complete auto&auto difrntl wbc David Lynchpaige DO Start: 03-02-2022 Basic metabolic pane l calcium total Abdiel Lanaciewski MD Work Phone: Start: 07-09-2021 Fluoroscopy during [...] 60 yrs+ (1 - 1-dose 75+ series) [facility] Start: 12-09-2024 Influenza vaccination Flu vacc ine (Season Ended) [facility] Start: 09-12-2024 End: 09-12-2024 Patient encounter procedure 09/12/2024 2:45 PM EDT Office Visit [facility] Part of [address] [place] [id number] Chandler Dean, PA-C [address] [place] [address] [address] [place] [address] 1yr KUB PSA PVR/LM to r/s appt, no provider in the office [facility] Comment on above: 1yr KUB PSA PVR/LM t o r/s appt, no provider in the office Start: 05-11-2024 Annual Wellness Visi t (Medicare Advantage) Annual Wellness Visit (Medicare Advantage) [facility] Start: 03-30-2024 End: 03-30-2024 Patient encounter procedure 03/30/2024 9:10 AM EST Office Visit [facility] [address] [facility] [address] [place] [id number] Portillo Ludwig MD [address] [facility] [address] [place] [address] Arrived [facility] Comment on above: Arrived Start: 01-10-2024 COVID-19 Vaccine ( season) COVID-19 Vaccine ( season) [facility] Start: 08-26-2023 End: 08-26-2023 Patient encounter procedure 08/26/2023 10:30 AM EDT Office Visit [facility] [place] [id number] 1 year PSA, MEERAB [facility] Comment on above: 1 year PSA, KUB Start: 12-09-2022 Influenza vaccination Flu vaccine (# 1) [facility] Start: 08-25-2022 End: 08-25-2022 Patient encounter procedure 08/25/2022 [facility] Start: 07-29-2022 Creatinine measurement Creatinine mo [facility] Start: 07-29-2022 Potassium monitoring Potassium monit [facility] Start: 07-16-2022 Creatinine measurement Creatinine mo [facility] Start: 07-16-2022 Potassium monitoring Potassium monit [facility] Start: 07-11-2022 Creatinine measurement Creatinine mo [facility] Start: 07-11-2022 Potassium monitoring Potassium monit [facility] Start: 07-10-2022 Creatinine measurement Creatinine mo nitoring [facility] Start: 07-10-2022 Potassium monitoring Potassium monit [facility] Start: 02-21-2022 End: 02-21-2022 Patient encounter procedure 02/21/2022 Office Visit Urology Abdiel Nfef MD [address] [facility], [address] [place], [place] [id number] [facility] Start: 01-09-2022 Influenza vaccination Flu vacc ine (Season Ended) [facility] Start: 12-09-2021 Influenza vaccination Flu vaccine (# 1) [facility] Start: 08-22-2021 End: 08-22-2021 Patient encounter procedure 08/22/2021 Office Visit Urology Abdiel Neff MD [address] [facility], [address] [place], [place] [phone] [facility] Start: 07-11-2021 End: 07-11-2021 Patient encounter procedure 07/11/2021 Office Visit Urology Dolly Lopez, FIRST AID NURSE - PLAYGROUND ATTENDANT [address] [facility] [address] [place] [phone] [facility] Start: 07-05-2021 Annual Wellness Visi t (AWV) Annual Wellness Visit (AWV) [facility] Start: 01-09-2021 Influenza vaccination Flu vaccine (# 1) [facility] Start: 10-15-2019 DTaP/Tdap/Td vaccine (1 - Tdap) DTaP/Tdap/Td vaccine (1 - Tdap) [facility] Start: 2019 Pneumococcal 65+ yea rs Vaccine (1 of 1 - PPSV23) Pneumococcal 65+ years Vaccine (1 of 1 - PPSV23) [facility] Start: 02-06-2004 Shingles Vaccine (1 of 2) Shingles Vaccine (1 of 2) [facility] Start: 1999 Screening for malign ant neoplasm of colon [facility] Start: 1973 DTaP/Tdap/Td vaccine (1 - Tdap) DTaP/Tdap/Td vaccine (1 - Tdap) [facility] Start: 1973 Pneumococcal 50+ yea rs Vaccine (1 of 2 - PCV) Pneumococcal 50+ years Vaccine (1 of 2 - PCV) [facility] Start: 02-06-1972 Hepatitis C screening Hepatitis C [facility] Start: 1966 Depression Screen Depression Screen [facility] Start: 02-06-1964 Lipid panel [facility] Start: 02-06-1960 Pneumococcal 65+ yea rs Vaccine (1 - PCV) Pneumococcal 65+ years Vaccine (1 - PCV) [facility] Start: 1959 COVID-19 Vaccine (1) COVID-19 Vaccin e (1) [facility] [employer] Start: 1954 COVID-19 Vaccine (#1) COVID-19 Vacci ne (#1) [facility] Start: 1954 [facility] [facility] Start: 1954 Hepatitis C screening Hepatitis C [facility] Start: 1954 Potassium monitoring Potassium monit [facility] CT ABDOMEN PELVIS WO CONTRAST Additional Contrast? None CT ABDOMEN PELVIS WO CONTRAST Additional Contrast? None Imaging STAT 07/11/2021 9:16 AM EST [employer] Phone: End: 07-16-2021 Culture[facility]rine [facility] Phone: Comment on above: 1 Occurrences starti ng 07/16/2021 until 07/16/2021 End: 07-29-2021 Culture, Urine [facility] Phone: Comment on above: 1 Occurrences starti ng 07/29/2021 until 07/29/2021 EKG 12 Lead EKG 12 Lead ECG STAT 01/25/2023 12:13 PM EDT [facility] [Mini [facility] Data Set] Initiate Oxygen Therapy Protocol Respiratory Care Routine As Needed until discontinued starting 07/09/2021 [facility]: Comment on above: As Needed until disc ontinued starting 07/09/2021 Immunizations Immunization Date Immunization Notes Care Provider Fa cility NEGATED: Highlighted row has not occurred!07-17-2023 influenza virus vaccine, unspecified formulation Aaron LOW [facility] [place] Payers Date Payer Category Payer Medicaid [employer] MEDICARE A DVANTAGE [id number] 2021 Medicare A[employer]NA MEDICARE A DVANTAGE A[employer]NA MEDICARE REPLACEMENT [id number] 2021-Present [address] [place] [address] [id number] 1959 Medicare [id number] 1959 Self-pay 1959 Unknown [id number] 1954 Unknown [id number] 2.16.840.1.684597.3.579.2. 593 1954 Unknown [id number] 2.16.840.1.406280.3.579.2. 593 1954 Unknown [id number] 2.16.840.1.630165.3.579.2. 593 1954 Unknown [id number] 2.16.840.1.920931.3.579.2. 593 1954 Unknown [id number] 2.16.840.1.426093.3.579.2. 593 1954 Unknown [id number] 2.16.840.1.028368.3.579.2. 593 1954 Unknown [id number] 2.16.840.1.009119.3.579.2. 593 1954 Unknown [id number] 2.16.840.1.869111.3.579.2. 593 1954 Unknown [id number] 2.16.840.1.388391.3.579.2. 593 1954 Unknown [id number] 2.16.840.1.775273.3.579.2. 727 1954 Unknown [id number] 2.16.840.1.405125.3.579.2. 727 1954 Unknown [id number] 2.16.840.1.210956.3.579.2. 727 1954 Unknown [id number] 2.16.840.1.897093.3.579.2. 727 1954 Unknown [id number] 2.16.840.1.497897.3.579.2. 727 1954 Unknown [id number] 2.16.840.1.349842.3.579.2. 727 1954 Unknown [id number] 2.16.840.1.839221.3.579.2. 727 1954 Unknown [id number] 2.16.840.1.705406.3.579.2. 1259 1954 Unknown [id number] 2.16.840.1.715545.3.579.2. 1259 1954 Unknown [id number] 2.16.840.1.231772.3.579.2. 1259 1954 Unknown [id number] 2.16.840.1.448056.3.579.2. 1259 1954 Unknown [id number] 2.16.840.1.372047.3.579.2. 173 1954 Unknown [id number] 2.16.840.1.290372.3.579.2. 173 Private Health Insurance [facility] [id number] Unknown Unknown [id number] 2.16.840.1.471736.3.579.2. 531 Social History Date Type Detail Facility Start: 07-05-2021 End: 02-21-2022 Tobacco smoking status TXIS Smokes tobacco daily [employer] Start: 05-11-1969 History of tobacco use Cigarette Smo ker [employer] Phone: Start: 07-05-2021 End: 01-25-2023 Cigarettes smoked current (pack per day) - Reported 1 [employer] Phone: Start: 07-05-2021 End: 02-21-2022 Tobacco use and exposure Smokeless tobacco non-user [employer] Phone: Start: 07-09-2021 End: 01-25-2023 Alcohol intake Current drinker of alcohol (finding) [employer] Phone: Start: 07-05-2021 History SDOH Alcohol Comment daily [employer] Phone: Start: 1955 Sex Assigned At Not on file M [employer] Phone: Start: 06-11-2021 End: 07-11-2021 Exposure to SARS-CoV-2 (event) Not sure [employer] Phone: Start: 11-08-2021 End: 10-22-2022 Tobacco smoking status Heavy tobacco smoker (finding) [facility] [employer] Tobacco smoking status Former sm okeless tobacco user, quit more than 30 days ago General Surgery [employer] Start: 02-21-2022 End: 01-25-2023 Sex Assigned At Male [facility] Start: 09-03-2023 Tobacco smoking stat us NHIS Smoker (finding) [facility] Start: 1955 Sex Assigned At Male [facility] Start: 06-20-2012 Sex Male (finding) [facility] Medical Equipment Procedure Code Equipment Code Equipment Origin al Text Equipment Identifier Dates Cystoscopy, with ureteral calculus manipulation and stent placement STENT BARD MULTI [id number] 22-32CM FDA Start: 02-23-2017 Stent Uret 6 Frx 26 Cm Firm [employer] - [id number] Start: 07-09-2021 STENT CONTOUR 6F R X 22-30CM FDA Start: 02-16-2017 Functional Status Date Assessment Result Facility 07-17-2023 Functional Status N/A [facility] 10-22-2022 Functional Status N/A [facility] 01-21-2022 N/A [facility] [place] 11-08-2021 Functional Status N/A [facility] Clinical Notes 06-23-2021 to 12-19-2024 Portillo Ludwig MD - 03/30/2024 9:10 AM Elsa Ludwig MD - 06/17/2023 11:10 AM Ferdinand Mott RN - 01/25/2023 1:17 PM Clive Mott RN - 01/25/2023 12:43 PM EDTInstructionsAttachments Note Date & Type Note Facility 12-19-2024 Note [place] Cardiology - [facility] Mao Peres is a 69 y.o. [...] Disp: 90 table (more content not included)... [facility] 06-22-2024 Note [facility] CARDIOLOGY PROGR ESS NOTE [...] or sooner as necessary. Cam Forrest MD [facility] 03-30-2024 History of Present illness Narrative Subjective [...] anesthesia. Schedule HAE. documented in this encounter [facility] 06-17-2023 History of Present illness Narrative Subjective [...] 02/10/2023 Pulmonary emphysema (CMS/HCC) 12/21/2020 Coronary arteriosclerosis ([facility]/HCC) 09/28/2018 Dyspnea on exertion 12/06/2021 Epistaxis, recurrent [...] a left MIDDLETON. documented in this encounter [facility] 02-19-2023 Hospital Discharge instructions Patient Education 02/19/2023 13:06:29 Post Op Patient Instructions - FT (CUSTOM) Follow Up Care 02/17/2023 09:28:50 With:Portillo Ludwig Address:Unknown When: Unknown Comments:As needed [facility] 02-18-2023 Note [id number] [facility] 01-25-2023 History of Present illness Narrative [...] now. Notified provider. documented in this encounter [facility] 12-16-2021 Note CARDIAC STRESS TEST Requesting Physician: [...] and relayed in a separate dictation. [facility] 07-10-2021 History of Present illness Narrative Discharge [...] following this hospitalization. Patient resides outside of [place] near [place] with his . 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 Patient uses no DME and has no [...] planning concerns or needs at this point. PROCESS TECH to remain involved and assist with any/all discharge planning needs as they present. JEISNO Canales 07/10/2021 Patient states he feels much [...] loss Fluid Accumulation: No significant fluid accumulation Dress Cutter Strength: Not Performed Estimated Daily Nutrient Needs: Energy (kcal): 8765-4826 (25-30); Weight Used for Energy Requirements: Current [...] 140 lb (63.5 kg) (couple weeks ago) [place] [facility] Weight: 142 lbs; % [place] [facility] Weight 95.1 % BMI: 21.8 Adjusted [...] No discharge needs at this time Contact: [phone] Patient complaining of pain. Encouraged patient to [...] pumps at this time. Pt arrived to [facility] via wheelchair from post op recovery. Pt alert and oriented x4. Pt was able to ambulate from wheelchair to recliner in room. Pt rates 2/10 pain when sitting in one place. Pt arrived on room air with no IV access. Pt denies any needs at this time. Report given to Gama HADLEY. [facility]. Discharge Criteria Inpatients must [...] adequate pain relief. Dr Neff called by [employer] WORK[employer] and updated. Pt being admitted overnight for [...] test on 07/05/2021 documented in this encounter [employer] Phone: 07-10-2021 Hospital course Narrative DISCHARGE SUMMARY [...] 3:32 PM 07/10/2021 documented in this encounter [employer] Phone: 07-09-2021 Hospital Discharge instructions Dolly Lopez Julio Cesar, FIRST AID NURSE - PLAYGROUND ATTENDANT - 07/09/2021 You may experience waves of [...] as directed as needed. Call our office [phone] or go to ER (if after normal office hours) if you develop fever, intractable vomiting, severe/intolerable pain. The following attachments cannot be sent through Care Everywhere.Kidney Stone Prevention Diet: General Info (Montenegrin)documented in this encounter [employer] Phone: 06-23-2021 Note PROCEDURE: XR CHEST 1 [...] by: LENIN JAY Date: 2021-06-22 22:30 [facility] Evaluation + Plan note No data available for this section [facility] [place] Evaluation + Plan note Future Appointments Appointment Date:09/23/2023 02:40:00 PM Scheduled Provider:LOW AVILA, Aaron White [facility] [place] Evaluation note Diagnosis Preop testing Preoperative examination, unspecified documented in this encounter [employer] Phone: evaluation note* Diagnosis Ureteral calculus- Primary Calculus of ureter Renal calculus Calculus of kidney [facility]* Diagnosis Left lower quadrant abdominal pain- Primary Urinary tract infection with hematuria, site unspecified Ureteral calculus Calculus of ureter documented in this encounter [employer] Phone: evaluation note* Diagnosis Ureteral stone Calculus of ureter Nausea Nausea alone Decreased appetite Anorexia documented in this encounter [employer] Phone: evaluation note* Diagnosis Renal colic LLQ pain Abdominal pain, left lower quadrant Incomplete bladder emptying documented in this encounter [employer] Phone: [id number] note* Diagnosis Renal colic LLQ pain Abdominal pain, left lower quadrant Incomplete bladder emptying documented in this encounter [employer] Phone: evaluation note* Diagnosis Renal colic LLQ pain Abdominal pain, left lower quadrant Incomplete bladder emptying documented in this encounter [employer] Phone: evaluation note* Diagnosis Ureteral stone Calculus of ureter documented in this encounter [employer] Phone: evaluation note* Diagnosis Intermittent chest pain- Primary Chest pain, unspecified History of epistaxis Personal history of other diseases of respiratory system documented [facility] encounter [facility]* Diagnosis Asymmetric SNHL (sensorineural hearing loss)- Primary Sensorineural hearing loss, asymmetrical Left-sided tinnitus Unspecified tinnitus documented [facility] this encounter [facility] HealthcareEvaluation noteNo assessment information availableMet[facility] Work Phone: Evaluation note* Diagnosis Sensorineural hearing loss (SNHL) of left ear with restricted hearing of right ear- Primary documented in this encounter [facility] HealthcareEvaluation note* Diagnosis Screening PSA (prostate specific antigen) Special screening for malignant neoplasm of prostate documented in this encounter [facility]* Diagnosis Renal stone Calculus of kidney [facility]* Instructions* David Robbins, - 07/11/2021 Please take the antibiotics as [...] sent through Care Everywhere. * Lithotripsy: Post-op (Montenegrin) * UTI (Urinary Tract Infection): Male (Montenegrin) [facility]: Hospital Discharge instructions No data available for this section [facility] [employer] Progress note No data available for this section [facility] [employer] Reason for visit Narrative* Auth/Cert Specialty Diagnoses / Procedures Referred By Miguel Angel mcelroy Referred To Contact Diagnoses Left ureteral calculus LEFT URETERAL CALCULUS, BLADDER WALL THICKENING Procedures MN CYSTO/URETERO W/LITHOTRIPSY &INDWELL STENT INSRT MN CYSTO/URETERO W/LITHOTRIPSY &INDWELL STENT INSRT CYSTOSCOPY URETEROSCOPY LASER- HLL CYSTOSCOPY URETERAL STENT INSERTION- POSS BLADDER BX Abdiel Neff MD [address], [address] [place] [address] [employer] [id number] [place] [address] Referral ID Status Reason Start Date Expiration Date Visits Re quested Visits Authorized [id number] 1 1 [employer] Phone: Summary Purpose Family History No Family [...] Christiane Freeze Spouse Primary Decision Maker Jesusita Trammellerholsharon Child Secondary Decision Maker Healthcare Agents on File Name Relationship Healthcare Agent Relationshi p Communication Christiane Freeze Spouse Primary Decision Maker Jesusita Myerholsharon Child Secondary Decision Maker Healthcare Agents on File Name Relationship Healthcare Agent Relationshi p Communication Christiane Freeze Spouse Primary Decision Maker Jesusita Trammellerholsharon Child Secondary Decision Maker Latest Code Status [...] Christiane Freeze Spouse Primary Decision Maker Jesusita Trammellerholsharon Child Secondary Decision Maker Healthcare Agents on [...] Date/ Time Advance Directives No September 02, 1:03pm Date Activated Date Inactivated Comments 07/09/2021 7:39 PM 07/10/2021 6:34 PM Date Activated Date Inactivated Comments 07/09/2021 2:57 PM 07/09/2021 7:38 PM Healthcare Agents on File Name Relationship Healthcare Agent Relationshi p Communication Christiane Freeze Spouse Primary Decision Maker Jesusita Kilgore Child Secondary Decision Maker Reason for Referral Specialty Diagnoses / Procedures Referred By Contzane t Referred To Contact Radiology Diagnoses Renal colic LLQ pain Incomplete bladder emptying Procedures CT ABDOMEN PELVIS WO CONTRAST Additional Contrast? None Dolly Lopez, FIRST AID NURSE - PLAYGROUND ATTENDANT [address] [place] [address] Referral ID Status Reason Start Date Expiration Date Visits Re quested Visits Authorized [id number] Closed 07/16/2021 01/12/2022 1 1 Additional Source Comments (unrecognized sect ion and content) No Status Records FoundNo Status Records FoundNo Status Records FoundNo Status Records FoundNo Status Records FoundNo Status Records FoundNo Status Records Found INFORMATION SOURCE (unrecogn ized section and content) DATE CREATED AUTHOR 11/20/2017 [facility] DATE CREATED AUTHOR AUTHOR'S ORGANIZ ATION 12/21/2021 [facility] DATE CREATED AUTHOR AUTHOR'S ORGANIZ ATION 09/07/2023 [facility] DATE CREATED AUTHOR AUTHOR'S ORGANIZ ATION 09/25/2023 [facility] DATE CREATED AUTHOR AUTHOR'S ORGANIZ ATION 04/01/2024 [facility] EPIC DATE CREATED AUTHOR AUTHOR'S ORGANIZ ATION 09/01/2024 [facility] DATE CREATED AUTHOR AUTHOR'S ORGANIZ ATION 01/05/2025 [facility] Care Teams (unrecognized sec tion and content) Field Administrative Assistant Relationship Specialty Start Date End Date Dylan Zaidi MD [address] [phone] PCP - General Family Medicine 07/05/21 Field Administrative Assistant Relationship Specialty Start Date End Date Dylan Zaidi MD [address] [phone] PCP - General Family Medicine 07/05/21 Field Administrative Assistant Relationship Specialty Start Date End Date Dylan Zaidi MD [address] [phone] PCP - General Family Medicine 07/05/21 Field Administrative Assistant Relationship Specialty Start Date End Date Dylan Zaidi MD [address] [phone] PCP - General Family Medicine 07/05/21 Field Administrative Assistant Relationship Specialty Start Date End Date Dylan Zaidi MD [address] [phone] PCP - General Family Medicine 07/05/21 Field Administrative Assistant Relationship Specialty Start Date End Date Dylan Zaidi MD [address] [place] [address] PCP - General Family Medicine 07/05/21 Field Administrative Assistant Relationship Specialty Start Date End Date Dylan Zaidi MD [address] [place] [address] PCP - General Family Medicine 07/05/21 Field Administrative Assistant Relationship Specialty Start Date End Date Dylan Zaidi MD [address] [facility] [place] [address] PCP - General Family Medicine 07/05/21 Field Administrative Assistant Relationship Specialty Start Date End Date Dylan Zaidi MD [address] [place] [address] PCP - General Family Medicine 07/05/21 Field Administrative Assistant Relationship Specialty Start Date End Date Dylan Zaidi MD [address] [place] [address] PCP - General Family Medicine 07/05/21 Field Administrative Assistant Relationship Specialty Start Date End Date Dylan Zaidi MD [address] [place] [address] PCP - General Family Medicine 01/28/23 Team Status: Inactive Member Role Status Dates Aaron Kelsey MD FACS Attending Provider Active Start: September 02, 2023 End: September 02, 2023 Field Administrative Assistant Relationship Specialty Start Date End Date Dylan Zaidi MD [address] [place] [address] PCP - General Family Medicine 01/28/23 Field Administrative Assistant Relationship Specialty Start Date End Date Dylan Zaidi MD [address] [place] [address] PCP - General Family Medicine 01/28/23 Field Administrative Assistant Relationship Specialty Start Date End Date Dylan Zaidi MD [address] [place] [address] PCP - General Family Medicine 07/05/21 Scheduled [...] IVPB 400 mg (COMPLETED) 400 mg, IntraVENous, PENSION EXAMINER TO O.R., 1 dose, On Thu07/09/21 at [...] Moses RN)1458 (Given - Provider: Kami Moses RN)2100 (Due) clopidogrel (PLAVIX) tablet 75 mg [...] EVENING, First dose on Thu07/09/21 at 1999 205 (Given - Provider: Gama Bell RN) 1800 [...] RN) 0844 (Given - Provider: Kami Moses RN)2099 (Due) tamsulosin (FLOMAX) capsule 0.4 mg 0.4 [...] of surgery) 1234 (New Bag - Provider: Francisca Delaney RN)1502 (NoRateChange - Provider: Sandie Rai APRN - JOURNEYMAN APPRENTICE [employer])1821 (Stopped - Provider: Janis Najera RN) PRN [...] WO CONTRAST Additional Contrast? None Dolly Lopez, FIRST AID NURSE - PLAYGROUND ATTENDANT [address] [place] [address] Referral ID Status Reason Start Date Expiration Date Visits Re quested Visits Authorized [id number] Closed 07/16/2021 01/12/2022 1 1 Reason Comments [...] BE BASED ON THE PRIMARY CLINICAL RECORDS. [facility]. provides no warranty or guarantee of the accuracy or completeness of information in this document.
[2025-01-13 12:27] LABS: Free T3 2.88 pg/mL (2.18-3.98); Thyroid Stimulating Hormone 1.228 uIU/mL (0.358-3.740)
== END 2025-01-13 10:50 | disposition home or self-care (01) ==
PROVIDERS: PCP Nurse Practitioner Family; Visit Provider Nurse Practitioner Family
DX: K59.00 Constipation, unspecified (principal); R73.09 Other abnormal glucose; R53.83 Other fatigue; Z12.5 Encounter for screening for malignant neoplasm of prostate
CPT/HCPCS: 36415; 74018; 83036; 84436; 84443; 84481; G0103